=== PATIENT | female | born 1945 | race Caucasian/White ===

== ENCOUNTER 2017-06-16 06:55 | Inpatient (IN) | payer MEDICARE, OTHER ==
[2017-06-16] MEDS ORDERED: Morphine INJ* 4 MG/ML 1 ML CARPUJECT IV ONE ×2 (07:19→07:43)
[2017-06-16 07:30] LABS: ABS Basophils 0 10^3/ul (0-0.2); ABS Eosinophils 0.2 10^3/ul (0-0.6); ABS Lymphocytes 2.7 10^3/ul (1.0-4.8); ABS Monocytes 0.5 10^3/ul (0-0.8); ABS Neutrophils 5.5 10^3/ul (1.5-7.7); ABS Nucleated RBC 0 10^3/ul; Eosinophil % 2.6 % (0-6); Hematocrit 39 % (35-47); Hemoglobin 13.4 g/dl (12.0-16.0); Lymphocyte % 29.9 % (25-47); Mean Corpuscular HGB Conc 35 g/dl (31-36); Mean Corpuscular Hemoglobin 32 pg (27-31); Mean Corpuscular Volume 93 fL (80-97); Mean Platelet Volume 8 um3 (7.4-10.4); Nucleated Red Blood Cells % 0; Platelet Count 178 10^3/ul (150-450); Red Blood Count 4.17 10^6/ul (4.0-5.4); Red Cell Distribution Width 15 % (10.5-15); White Blood Count 8.9 10^3/ul (3.5-10.8)
--- NOTE | 2017-06-16 07:44 | RAD ---
INDICATION: Chest pain. COMPARISON: Comparison is made with a prior chest x-ray study from April 20, 2016. TECHNIQUE: A portable view of the chest was obtained. FINDINGS: The heart is moderately enlarged and unchanged from the prior exam. The lungs are slightly hyperinflated and clear. No pleural effusion is seen. IMPRESSION: CARDIOMEGALY, UNCHANGED.
[2017-06-16 07:48] LABS: EGFR Non-African American 84.4 (>60)
[2017-06-16 08:48] LABS: Urine Appearance Clear; Urine Blood Negative (Negative); Urine Color Yellow; Urine Ketones Negative (Negative); Urine Protein 2+(100 mg/dL) (Negative); Urine Specific Gravity 1.011 (1.010-1.030); Urine Urobilinogen Negative (Negative)
[2017-06-16] MEDS ORDERED: HYDROmorphone INJ* 2 MG/ML CARPUJECT SYRINGE IV SLOW PU ONE (09:51)
--- NOTE | 2017-06-16 10:43 | ED ---
Johnathon Mustafa Natalie, scribed for Carson Tee MD on 06/16/17 at 0745 . HPI Chest Pain - HPI Summary HPI Summary: The pt is a 71 y/o F presenting to the ED c/o mid sternal CP starting at 05:00. The pt states she was sleeping and was woken up when she got one bad chest pain that went through her left arm. She says her heart was beating fast like it was coming out of her chest. The pain is described as a needle-like pain. The pain is rated 6/10. She is currently in moderate pain. Pt additionally c/o pain constant between low back and legs, SOB, and productive cough. In the past , she has had two small heart attacks and has had one similar episode of this same CP. She is paralyzed from the waist down and gets around by crawling on the ground. The pt has hx of diabetes, COPD, HTN, and high cholesterol. - History of Current Complaint Time Seen by Provider: 06/16/17 07:14 Hx Obtained From: Patient Onset/Duration: Started Hours Ago - at 05:00 this morning, Still Present Timing: Lasting Hours Initial Severity: Moderate Current Severity: Moderate Pain Intensity: 6 Pain Scale Used: 0-10 Numeric Chest Pain Location: Mid Sternal Chest Pain Radiates: Yes Chest Pain Radiates To:: Arm - left Character: Cough, Productive, Sharp/Stabbing - "needle-like" Aggravating Factor(s): Nothing Alleviating Factor(s): Nothing Associated Signs and Symptoms: Positive: Chest Pain, Shortness of Breath, Productive Cough, Back Pain - low back - Allergy/Home Medications Allergies/Adverse Reactions: Allergies Allergy/AdvReac Type Severity Reaction Status Date / Time Aspirin Allergy Unknown Verified 06/16/17 06:59 Reaction Details Carbapenems Allergy Unknown Verified 06/16/17 06:59 Reaction Details Cephalosporins Allergy Unknown Verified 06/16/17 06:59 Reaction Details Ketorolac Tromethamine Allergy Unknown Verified 06/16/17 06:59 [From Toradol] Reaction Details Penicillins [PCN] Allergy Unknown Verified 06/16/17 06:59 Reaction Details PMH/Surg Hx/FS Hx/Imm Hx Previously Healthy: No Endocrine/Hematology History: Reports: Hx Anticoagulant Therapy, Hx Diabetes, Hx Thyroid Disease Denies: Hx Blood Transfusions Cardiovascular History: Reports: Hx Angina, Hx Congestive Heart Failure, Hx Hypercholesterolemia, Hx Hypertension, Hx Peripheral Vascular Disease, Other Cardiovascular Problems/Disorders - CHF Respiratory History: Reports: Hx Asthma, Hx Chronic Bronchitis, Hx Chronic Obstructive Pulmonary Disease (COPD) - PT ON HOME O2 4 L/MIN, Hx Pneumonia, Hx Pulmonary Edema, Hx Seasonal Allergies, Hx Sleep Apnea Denies: Hx Lung Cancer Musculoskeletal History: Reports: Hx Arthritis, Hx Back Problems, Hx Bursitis, Hx Orthopedic Injury, Hx Osteoporosis Denies: Hx Fibromyalgia Sensory History: Reports: Hx Contacts or Glasses, Hx Vision Problem Opthamlomology History: Reports: Hx Contacts or Glasses, Hx Vision Problem Neurological History: Denies: Hx Dementia, Hx Developmental Delay, Hx Headaches, Hx Migraine, Hx Seizures, Hx Spinal Cord Injury, Hx Transient Ischemic Attacks (TIA) Psychiatric History: Reports: Hx Anxiety - Cancer History Cancer Type, 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 Hx Chemotherapy: No Hx Radiation Therapy: Yes Hx Palliative Cancer Treatment: No - Surgical History Surgery Procedure, Year, and Place: cholecystectomy, carpal tunnel bilat hands, hysterectomy Hx Anesthesia Reactions: No Infectious Disease History: No Infectious Disease History: Denies: Traveled Outside the [place] in Last 30 Days - Family History Known Family History: Positive: Hypertension, Diabetes - Social History Alcohol Use: Rare Alcohol Amount: wine Hx Substance Use: No Substance Use Type: Reports: None Hx Tobacco Use: Yes Smoking Status (MU): Heavy Every Day Tobacco Smoker Type: Cigarettes Have You Smoked in the Last Year: Yes Review of Systems Constitutional: Negative Eyes: Negative ENT: Negative Positive: Chest Pain Positive: Shortness Of Breath, Cough Gastrointestinal: Negative Musculoskeletal: Negative Positive: Other - low back pain Neurological: Negative All Other Systems Reviewed And Are Negative: Yes Physical Exam - Summary Physical Exam Summary: Appearance: Well appearing, Well-nourished Skin: Warm, dry Eyes: Normal ENT: Slightly dry mucous membranes Neck: Supple, nontender Respiratory: Lungs clear to auscultation Cardiovascular: 2/6 systolic murmur throughout chest, Equal pulses in both left and right upper extremities Abdomen: Soft, nontender, nondistended, no masses present Bowel: Present Musculoskeletal: Moderate tenderness in back along midline from mid to low thoracic Neurological: A&Ox3, weakness in BLE consistent with baseline Psychiatric: Normal Triage Information Reviewed: Yes Vital Signs On Initial Exam: Initial Vitals Temp Pulse Resp BP Pulse Ox 97.4 F 89 17 123/86 92 01/06/18 06:58 06/16/17 06:58 06/16/17 06:58 06/16/17 06:58 06/16/17 06:58 Vital Signs Reviewed: Yes - Reyna Coma Scale Coma Scale Total: 15 Diagnostics - Vital Signs Vital Signs Temp Pulse Resp BP Pulse Ox 06/16/17 07:29 24 06/16/17 07:26 94 06/16/17 06:58 97.4 F 89 17 123/86 92 - Laboratory Lab Results: Lab Results 06/16/17 Range/Units 07:21 WBC 8.9 (3.5-10.8) 10^3/ul RBC 4.17 (4.0-5.4) 10^6/ul Hgb 13.4 (12.0-16.0) g/dl Hct 39 (35-47) % MCV 93 (80-97) fL MCH 32 H (27-31) pg MCHC 35 (31-36) g/dl RDW 15 (10.5-15) % Plt Count 178 (150-450) 10^3/ul MPV 8 (7.4-10.4) um3 Neut % (Auto) 61.7 (38-83) % Lymph % (Auto) 29.9 (25-47) % Trego % (Auto) 5.3 (1-9) % Eos % (Auto) 2.6 (0-6) % Baso % (Auto) 0.5 (0-2) % Absolute Neuts (auto) 5.5 (1.5-7.7) 10^3/ul Absolute Lymphs (auto) 2.7 (1.0-4.8) 10^3/ul Absolute Monos (auto) 0.5 (0-0.8) 10^3/ul Absolute Eos (auto) 0.2 (0-0.6) 10^3/ul Absolute Basos (auto) 0 (0-0.2) 10^3/ul Absolute Nucleated RBC 0 10^3/ul Nucleated RBC % 0 Result Diagrams: 06/16/17 07:21 06/16/17 07:21 Lab Statement: Any lab studies that have been ordered have been reviewed, and results considered in the medical decision making process. - Radiology CXR Xray Interpretation: No Acute Changes - Cardiomegaly, unchanged. ED physician has reviewed this report. Radiology Interpretation Completed By: Radiologist - EKG 08:04 Cardiac Rate: NL EKG Rhythm: Sinus Rhythm - 84 BPM EKG Interpretation: LAFB. Seen on prior EKG from 04/20/16. Chest Pain Course/Dx - Course Assessment/Plan: no current chest pain, complains of acute on chronic lower back pain, admitted for r/o acs and social work consultation, as patient's home has now been deemed uninhabitable - Diagnoses Provider Diagnoses: Chest pain - Provider Notifications Discussed Care Of Patient With: Naun Jaime Discharge - Discharge Plan Condition: Stable Disposition: ADMITTED TO [facility] Referrals: Janes GAMING,Lidia Abraham [Primary Care Provider] - The documentation as recorded by the Johnathon jolley Natalie accurately reflects the service I personally performed and the decisions made by , Carson Tee MD.
[2017-06-16] MEDS ORDERED: Ondansetron INJ* 2 MG/ML VIAL IV PRN (11:38)
[2017-06-16] MEDS ORDERED: Albuterol 2.5 MG/3 ML NEB.SOL* (0.083%) INH PRN (11:38)
[2017-06-16] MEDS ORDERED: Dextrose 50% Syringe 50 ML* 25 GM/50 ML SYRINGE IV PUSH PRN (11:38)
[2017-06-16] MEDS ORDERED: Acetaminophen TAB* 325 MG PO PRN (11:38)
[2017-06-16] MEDS ORDERED: Albuterol HFA INHALER* 8 gm MDI INH PRN (11:48)
[2017-06-16] MEDS: oxyCODONE/Acetamin 5/325 MG* TAB PO PRN ×2 (13:45→20:30)
[2017-06-16] MEDS: Baclofen TAB* 10 MG PO SCH ×2 (13:45→20:31)
[2017-06-16] MEDS: Pramipexole TAB* 0.5 MG PO PRN (13:45)
[2017-06-16] MEDS: Gabapentin CAP(*) 400 MG PO SCH ×2 (13:46→20:31)
--- NOTE | 2017-06-16 14:00 | HP ---
CC: Dr. Marrero; Dr. Hahn * HISTORY AND PHYSICAL: DATE OF ADMISSION: 06/16/17 PRIMARY CARE PROVIDER: Dr. Marrero. ATTENDING PHYSICIAN WHILE IN THE HOSPITAL: Dr. Annelise Mack * (report dictated by Rex Graf NP). CHIEF COMPLAINT: Chest pain. HISTORY OF PRESENT ILLNESS: Ms. Regalado is 71-year-old female patient. She has a history of arthritis. She has a history of severe . She follows closely with Dr. Hahn. She states she has had 2 mild heart attacks in the past. She is diabetic, hypothyroidism, history of CHF, CVA, AFib, COPD, and has a history of uterine cancer, hypertension, hyperlipidemia. She comes into the ED today, saying around 5 in the morning, she woke up, she started having intermittent chest discomfort. She states that the pain has been coming and going over the last several hours and it was severe enough to the point where she felt that she wanted to come in. She said the pain did go down her left arm. She described this as a squeezing-type pressure. She does admit also she has been feeling under the weather over the last few days as well as she had a cough productive of a thick, white sputum. She has not been feeling short of breath. No fevers or chills, but she was concerned with the new onset today of chest pain. She came into the ED, was evaluated. She had no associated nausea. She did get diaphoretic with it. She has significant risk factors for acute coronary syndrome and we were asked to evaluate for admission. She denied having any calf pain, leg pain, or leg swelling, and again says the symptoms are gone now and she is not having any shortness of breath whatsoever. PAST MEDICAL HISTORY: Significant for: 1. Osteoarthritis. 2. History of CHF. 3. History of CA x2. 4. Diabetes. 5. Hypothyroidism. 6. CVA. 7. AFib. 8. COPD. 9. Uterine cancer. 10. Hypertension. 11. Hyperlipidemia. PAST SURGICAL HISTORY: She has had: 1. Hysterectomy. 2. Cholecystectomy. 3. Carpal tunnel repair. MEDICATIONS: Home medications according to the list that we were able to obtain include: 1. Januvia 100 mg daily. 2. Mirapex 0.5 mg t.i.d. as needed. 3. Gabapentin 400 mg p.o. t.i.d. 4. Metformin 500 mg p.o. b.i.d. 5. Synthroid 125 mcg daily. 6. Apixaban 5 mg p.o. b.i.d. 7. Percocet 1 tablet daily as needed. 8. Tylenol 500 mg p.o. b.i.d. as needed. 9. Toprol-XL 25 mg p.o. daily. 10. Nitro 0.4 mg sublingual q.5 minutes x3 chest pain. 11. Symbicort 2 puffs inhaled b.i.d. 12. Requip 1 mg p.o. t.i.d. as needed. 13. Ventolin 2 puffs inhaled every 4 hours as needed. 14. Celebrex 200 mg p.o. daily. 15. Multivitamin 1 tablet daily. 16. Baclofen 10 mg p.o. t.i.d. ALLERGIES TO MEDICATIONS: Include ASPIRIN, CARBAPENEM, CEPHALOSPORIN, and TORADOL. FAMILY HISTORY: Both the parents had CHF. Mother did have a history of CA at age before 50. SOCIAL HISTORY: She is a pack-a-day smoker. Rarely drinks alcohol. Lives alone. Surrogate decision maker is the director of social work, Mary. REVIEW OF SYSTEMS: There is no documented fever. Denied having any significant weight change. There was no double vision. Denies having any ear discharge. There was no rhinorrhea. There is no sore throat. She does feel congested. She does admit to having a cough productive of a white, thick sputum. She denies having any abdominal pain. There has been no nausea, no vomiting. No dysuria, no frequency. There has been no seizure, no loss of consciousness. No pruritus and no skin ulcerations. Review of 14 systems completed, all others negative. PHYSICAL EXAMINATION GENERAL: At this time, Ms. Regalado is a 71-year-old female patient. She is sitting in the ED stretcher. She does not appear to be in any acute distress. She is awake and she is alert. VITAL SIGNS: Blood pressure 131/45, pulse 80, respirations were 18, O2 sat 95% , temperature 97.4. HEENT: Head: Atraumatic, normocephalic. Eyes: EOMs are intact. Sclerae anicteric, not pale. Throat: Oral mucosa appears to be moist. No oropharyngeal erythema. NECK: Supple. LUNGS: She did have wheezing in the upper lobe. She has equal diaphragmatic expansion. HEART: Sounds S1, S2. Regular rate and rhythm. She has a grade 3/6 murmur in the aortic listening area, systolic. ABDOMEN: Soft, flat, nontender. Bowel sounds present. EXTREMITIES: Pulses were 2+ throughout. She had no peripheral edema. She is moving all 4 extremities with 5/5 strength. NEUROLOGIC: The patient is awake, alert. She is oriented x3. Health And Safety Specialist are equal. No gross focal deficits. SKIN: Intact. DIAGNOSTIC STUDIES/LAB DATA: WBC of 8.9, RBC of 4.17, hemoglobin of 13.4, hematocrit of 39, platelet count 178. ESR was 11. Sodium was 139, potassium 4.3, chloride 110, bicarb 23, BUN 17, creatinine 0.69, glucose 97, calcium 9.2, mag 1.9. Total bili is 0.4, AST 18, ALT 9, alk phos 60. Troponin 0.03, repeat was 0.03. CRP less than 1. Albumin of 4.2. Urine was obtained, it was negative. She had a chest x-ray obtained today, impression: Cardiomegaly unchanged. She had an EKG obtained today, shows a normal sinus rhythm with left anterior fascicular block. No ST elevations were noted or T-wave inversions, rate of 84. It was reviewed to her previous EKGs. Previous EKGs from 2 years ago shows sinus bradycardia, left fascicular block was there as well. Old medical records reviewed. ASSESSMENT AND PLAN: Ms. Regalado is 71-year-old female patient coming into the ED today with complaints of chest discomfort. We are asked to evaluate for admission. She will be admitted under observation status for: 1. Chest pain. The etiology is concerning here. She could have acute coronary syndrome. She certainly has significant risk factors, the patient is a smoker, she has a history of possible myocardial infarction in the past, diabetes, hypertension, hyperlipidemia, and history of atrial fibrillation. At this point, I think it is prudent to go ahead and pursue stress testing, serial troponins, place her on telemetry. At this point, she is chest pain free. She is allergic to ASPIRIN. So, I am just going to continue the beta juanito. If she starts having chest discomfort , I will put her on Plavix. I am leery of doing that right away because she is already on apixaban. So, we will continue to follow her. 2. Osteoarthritis. Continue p.r.n. meds as prescribed. 3. Neuropathy. Continue meds as prescribed. 4. Congestive heart failure. She does not appear to be in any acute failure at this point. 5. History of diabetes. She is going to be on lispro sliding scale. 6. Hypothyroidism. Continue Synthroid. 7. History of cerebrovascular accident. Again, secondary prevention. 8. Atrial fibrillation. Continue the Eliquis. 9. Chronic obstructive pulmonary disease. She is wheezing on exam, so I am going to put her on standing nebs. Continue Dulera and we will check for flu swab as well and we will continue to follow. Get a sputum culture. 10. History of hypertension. Continue her meds as prescribed. 11. Hyperlipidemia. We will check lipids in the morning. If needed, we will start statin. 12. DVT prophylaxis. She is on apixaban. 13. Code status. Full code. 14. Fluids, electrolytes, and nutrition. She can have a consistent carb diet. TIME SPENT: On the admission was 60 minutes; greater than half the time was spent [id number] with the patient obtaining my history and physical, other half the time was spent going over the plan of care with the patient and implementing the plan of care. I did discuss the plan of care with my attending , Dr. Mack; she is in agreement. REX GRAF NP [id number]/CPS #: [id number] MEMO
[2017-06-16] MEDS: Albuterol/Ipratropium NEB.SOL* Albuterol 2.5 MG/Ipratropium 0.5 MG 3 ML INH SCH ×3 (15:35→23:18)
[2017-06-16] MEDS: Insulin LISPRO* 1 UNITS UNIT SUBCUT SCH (17:24)
[2017-06-16] MEDS: Mometasone/Formoter 200/5 MDI INH SCH (19:28)
[2017-06-16] MEDS: Apixaban* 5 MG TAB PO SCH (20:30)
[2017-06-16] MEDS: rOPINIRole TAB* 1 MG PO PRN (20:31)
[2017-06-17] MEDS: oxyCODONE/Acetamin 5/325 MG* TAB PO PRN ×3 (02:42→20:42)
[2017-06-17] MEDS: Pramipexole TAB* 0.5 MG PO PRN ×2 (02:43→12:59)
[2017-06-17] MEDS: Albuterol/Ipratropium NEB.SOL* Albuterol 2.5 MG/Ipratropium 0.5 MG 3 ML INH SCH ×6 (03:24→23:35)
[2017-06-17 05:05] LABS: ABS Basophils 0 10^3/ul (0-0.2); ABS Eosinophils 0.2 10^3/ul (0-0.6); ABS Lymphocytes 2.7 10^3/ul (1.0-4.8); ABS Monocytes 0.4 10^3/ul (0-0.8); ABS Nucleated RBC 0 10^3/ul; Eosinophil % 2.6 % (0-6); Hematocrit 37 % (35-47); Hemoglobin 12.4 g/dl (12.0-16.0); Lymphocyte % 42.6 % (25-47); Mean Corpuscular HGB Conc 34 g/dl (31-36); Mean Corpuscular Hemoglobin 32 pg (27-31); Mean Corpuscular Volume 93 fL (80-97); Mean Platelet Volume 8 um3 (7.4-10.4); Nucleated Red Blood Cells % 0.1; Platelet Count 153 10^3/ul (150-450); Red Blood Count 3.92 10^6/ul (4.0-5.4); Red Cell Distribution Width 14 % (10.5-15); White Blood Count 6.4 10^3/ul (3.5-10.8)
[2017-06-17 05:20] LABS: EGFR Non-African American 61.3 (>60)
[2017-06-17] MEDS: Levothyroxine TAB* 125 MCG TAB PO SCH (06:06)
[2017-06-17] MEDS: Mometasone/Formoter 200/5 MDI INH SCH ×2 (07:55→19:27)
[2017-06-17] MEDS: Apixaban* 5 MG TAB PO SCH ×2 (09:35→20:43)
[2017-06-17] MEDS: Gabapentin CAP(*) 400 MG PO SCH ×3 (09:35→20:42)
[2017-06-17] MEDS: Baclofen TAB* 10 MG PO SCH ×3 (09:35→20:42)
[2017-06-17] MEDS: Metoprolol Succinate XL TAB* 25 MG PO SCH (09:35)
[2017-06-17] MEDS: rOPINIRole TAB* 1 MG PO PRN ×2 (09:35→20:42)
[2017-06-17] MEDS: Insulin LISPRO* 1 UNITS UNIT SUBCUT SCH ×3 (09:36→16:58)
[2017-06-17] MEDS ORDERED: diPHENhydraMINE PO* 25 MG PO ONE (12:00)
[2017-06-17] MEDS ORDERED: Diazepam TAB(*) 5 MG PO ONE (12:00)
--- NOTE | 2017-06-17 13:33 | PN ---
Subjective Date of Service: 06/17/17 Interval History: Pt examined today at the bedside. States that she has sharp pain in chest occasionally. No pain currently. She denies abdominal pain. Denies sob and denies nausea or vomiting. ROS-denies fever, denies chills, denies sob, denies chest pain, denies nausea, denies vomiting, denies lightheadedness, denies loc, denies abdominal pain, review of 11 systems completed all others negative, Objective Active Medications: Acetaminophen (Tylenol Tab*) 650 mg PO Q4H PRN PRN Reason: FEVER/PAIN Albuterol (Ventolin 2.5 Mg/3 Ml Neb.Marjorie*) 2.5 mg INH Q2H PRN PRN Reason: SOB/WHEEZING Albuterol (Ventolin Hfa Inhaler*) 2 puff INH Q4H PRN PRN Reason: SOB/WHEEZING Apixaban (Eliquis*) 5 mg PO BID [facility] Last Admin: 06/17/17 09:35 Dose: 5 mg Baclofen (Lioresal Tab*) 10 mg PO TID [facility] Last Admin: 06/17/17 13:00 Dose: 10 mg Dextrose (D50w Syringe 50 Ml*) 12.5 gm IV PUSH .FOR FS < 60 - SS PRN PRN Reason: FS < 60 Gabapentin (Neurontin Cap(*)) 400 mg PO TID [facility] Last Admin: 06/17/17 13:00 Dose: 400 mg Sodium Chloride (Ns 0.9% 1000 Ml*) 1,000 mls @ 75 mls/hr IV .per rate [facility] Insulin Human Lispro (Humalog*) 0 units SUBCUT AC [facility] PRN Reason: Protocol Last Admin: 06/17/17 12:23 Dose: Not Given Levothyroxine Sodium (Synthroid Tab*) 125 mcg PO 0600 [facility] Last Admin: 06/17/17 06:06 Dose: 125 mcg Metoprolol Succinate (Toprol Xl Tab*) 25 mg PO DAILY [facility] Last Admin: 06/17/17 09:35 Dose: 25 mg Mometasone Furoate/Formoterol Fumar (Dulera 200/5 Mdi*) 2 puff INH BID [facility] Last Admin: 06/17/17 07:55 Dose: 2 puff Ondansetron HCl (Zofran Inj*) 4 mg IV Q6H PRN PRN Reason: NAUSEA Oxycodone/Acetaminophen (Percocet 5/325 Tab*) 2 tab PO Q4H PRN PRN Reason: PAIN Last Admin: 06/17/17 12:59 Dose: 2 tab Pramipexole Dihydrochloride (Mirapex Tab*) 0.5 mg PO TID PRN PRN Reason: LEG CRAMPS Last Admin: 06/17/17 12:59 Dose: 0.5 mg Ropinirole HCl (Requip Tab*) 1 mg PO TID PRN PRN Reason: for restless leg syndrome Last Admin: 06/17/17 09:35 Dose: 1 mg Vital Signs - 8 hr 06/17/17 06/17/17 06/17/17 07:50 07:55 08:00 Temperature 98.9 F Pulse Rate 64 76 Respiratory 20 18 18 Rate Blood Pressure 138/55 (mmHg) O2 Sat by Pulse 91 93 Oximetry 06/17/17 06/17/17 06/17/17 09:35 12:59 13:00 Temperature Pulse Rate Respiratory 20 20 18 Rate Blood Pressure (mmHg) O2 Sat by Pulse Oximetry Oxygen Devices in Use Now: Nasal Cannula Appearance: 71 y/o female patient sitting in bed NAD, Eyes: No Scleral Icterus, PERRLA Ears/Nose/Mouth/Throat: NL Teeth, Lips, Gums Neck: NL Appearance and Movements; NL JVP Respiratory: Symmetrical Chest Expansion and Respiratory Effort, - - exp wheeze heard in upper lobes, Cardiovascular: NL Sounds; No Murmurs; No JVD Abdominal: NL Sounds; No Tenderness; No Distention Extremities: No Edema Skin: No Rash or Ulcers Neurological: Alert and Oriented x 3 Lines/Tubes/Other Access: Clean, Dry and Intact Peripheral IV Result Diagrams: 06/17/17 04:47 06/17/17 04:47 Additional Lab and Data: Lab Results 06/16/17 Range/Units 07:21 WBC 8.9 (3.5-10.8) 10^3/ul RBC 4.17 (4.0-5.4) 10^6/ul Hgb 13.4 (12.0-16.0) g/dl Hct 39 (35-47) % MCV 93 (80-97) fL MCH 32 H (27-31) pg MCHC 35 (31-36) g/dl RDW 15 (10.5-15) % Plt Count 178 (150-450) 10^3/ul MPV 8 (7.4-10.4) um3 Neut % (Auto) 61.7 (38-83) % Lymph % (Auto) 29.9 (25-47) % Gordon % (Auto) 5.3 (1-9) % Eos % (Auto) 2.6 (0-6) % Baso % (Auto) 0.5 (0-2) % Absolute Neuts (auto) 5.5 (1.5-7.7) 10^3/ul Absolute Lymphs (auto) 2.7 (1.0-4.8) 10^3/ul Absolute Monos (auto) 0.5 (0-0.8) 10^3/ul Absolute Eos (auto) 0.2 (0-0.6) 10^3/ul Absolute Basos (auto) 0 (0-0.2) 10^3/ul Absolute Nucleated RBC 0 10^3/ul Nucleated RBC % 0 Assess/Plan/Problems-Billing Assessment: 71 y/o female patient presenting to [facility] with complaints of chest pain - Patient Problems (1) HTN (hypertension) Current Visit: Yes Status: Acute Priority: High Comment: Continue home medications, (2) HLD (hyperlipidemia) Current Visit: Yes Status: Acute Priority: High Comment: LDL 123 will start statin (3) Aortic stenosis Current Visit: Yes Status: Acute Priority: High Comment: Dr hahn following suspect chest r/t cardiac cath in am, (4) History of CVA (cerebrovascular accident) Current Visit: Yes Status: Acute Priority: High Comment: continue with secondary prevention (5) CHF (congestive heart failure) Current Visit: Yes Status: Acute Priority: High Comment: not in failure at this point, lungs with wheeze, suspect r/t copd, will follow diuresis prn (6) FEN Current Visit: Yes Status: Acute Priority: High Comment: Consistent carb diet (7) Afib Current Visit: Yes Status: Acute Priority: High Comment: Continue Elquis, (8) COPD (chronic obstructive pulmonary disease) Current Visit: Yes Status: Acute Priority: High Comment: Wheezing on exam continue standing nebs, (9) Chest pain Current Visit: Yes Status: Acute Priority: High Comment: Trops negative, Dr Hahn following, pain for cath, trops, negative, (10) DVT prophylaxis Current Visit: Yes Status: Acute Priority: High Comment: elquis (11) Depression Current Visit: Yes Status: Acute Priority: High Comment: continue home medications (12) Diabetes Current Visit: Yes Status: Acute Priority: High Code(s): E11.9 - TYPE 2 DIABETES MELLITUS WITHOUT COMPLICATIONS Comment: Blood sugars well controlled continue sliding scale, (13) Full code status Current Visit: Yes Status: Acute Priority: High (14) Acquired hypothyroidism Current Visit: Yes Status: Acute Priority: High Comment: continue home medications Status and Disposition: Change to inpatient, plan for cath in the AM,
[2017-06-17] MEDS ORDERED: Albuterol/Ipratropium NEB.SOL* Albuterol 2.5 MG/Ipratropium 0.5 MG 3 ML INH SCH (15:00)
[2017-06-17] MEDS: Atorvastatin* 20 MG TAB PO SCH (17:11)
[2017-06-17] MEDS ORDERED: NS 0.9% 1000 ML* 1,000 ML IV SCH (23:55)
[2017-06-18] MEDS: Pramipexole TAB* 0.5 MG PO PRN ×3 (00:16→21:04)
[2017-06-18] MEDS: Albuterol/Ipratropium NEB.SOL* Albuterol 2.5 MG/Ipratropium 0.5 MG 3 ML INH SCH ×3 (03:45→11:37)
--- NOTE | 2017-06-18 05:32 | CONS ---
CC: Dr. Lidia Marrero; STEVE Sheldon * CARDIOLOGY CONSULTATION: DATE OF CONSULT: 06/17/17 REASON FOR CONSULTATION: Chest pain, aortic stenosis. HISTORY OF PRESENT ILLNESS: The patient is a 71-year-old female with a history of hypertension, hyperlipidemia, paroxysmal atrial fibrillation, congestive heart failure, obesity and anxiety who also has severe aortic stenosis. I had seen the patient in followup in my clinic 5 days ago, at that time, she was not having any clear cardiac symptoms from her severe aortic stenosis. She had had a carotid ultrasound, which showed no critical stenosis of her carotid arteries. The day prior to admission to the hospital, the patient was at home and she started having a sudden onset of chest pain. She described it as a heaviness in her chest. She said it felt like her heart was thumping and she felt quite anxious. At that time, she called her director of social services who decided to call the ambulance. The patient was taken to the [facility] and then transferred to [facility] because of her chest pain. The patient ruled out for a myocardial infarction. Her troponin levels were unremarkable. In speaking with the patient, she says that occasionally she will get chest pain at home but this is usually fleeting, it is usually a sharp pain on the left side of her chest and lasts just a few seconds. This episode was a much prolonged chest pain. She had shortness of breath associated with it. The patient has not experienced this type of chest pain in the past. The patient did have an echocardiogram in March of 2017, which showed normal LV size and systolic function. She had severe aortic stenosis with a mean gradient of 40 mmHg, peak velocity of 4.2 m/sec, she had mild mitral regurgitation and mild tricuspid regurgitation. The patient did have a chemical nuclear stress test in April of 2016, which showed a small area of ischemia to her inferior wall, she had normal LV function. PAST MEDICAL HISTORY: Significant for diabetes, severe aortic stenosis, CVA, paroxysmal atrial fibrillation, hypertension. She has also had a history of uterine cancer. She has had a history of hysterectomy, cholecystectomy and carpal tunnel. OUTPATIENT MEDICATIONS: 1. Januvia 100 mg a day. 2. Gabapentin 400 mg 3 times a day. 3. Metformin 500 mg b.i.d. 4. Synthroid 125 mcg a day. 5. Eliquis 5 mg b.i.d. 6. Toprol-XL 25 mg a day. 7. Requip 1 mg 3 times a day. 8. Ventolin inhaler. 9. Celebrex 200 mg a day. 10. Multivitamin a day. ALLERGIES: To ASPIRIN, CEPHALOSPORIN and TORADOL. FAMILY HISTORY: Both her parents had a history of congestive heart failure. Her mother of myocardial infarction at 50 years old. SOCIAL HISTORY: The patient continues to smoke a pack a day. Rare alcohol intake. She lives alone. She has a director of social services that is involved in her care. PHYSICAL EXAM: Height is 5 feet 4 inches, weight is 187 pounds, heart rate is 78, blood pressure 129/58, respiratory rate is 18, temperature of 98.2. Sclerae are anicteric. Oropharynx is pink without erythema. Carotids are 2+ with bilateral bruits. JV is normal. Thyroid is normal. Cardiac Exam: S1, S2 with a 3/6 systolic ejection murmur. No diastolic murmur. PMI is normal. Lungs have decreased breath sounds. There are no rhonchi or wheezes. There are rales on exam. Abdomen is obese, soft, nontender and nondistended with normoactive bowel sounds. There is no hepatosplenomegaly. Extremities show 1+ edema. She has 2+ pulses throughout. The patient is awake, alert and oriented. She moves all 4 extremities equally. DIAGNOSTIC STUDIES/LAB DATA: CBC within normal limits. Chemistries within normal limits. BUN 25, creatinine 0.91. Again, troponins are negative x3. Total cholesterol 214, LDL of 123. Her EKG demonstrates normal sinus rhythm with nonspecific ST-T wave abnormalities. IMPRESSION: This is a 61-year-old female who was admitted to the hospital with chest pain. The patient has a known history of severe aortic stenosis. The patient is ruled out for a myocardial infarction. She has no EKG changes. For now, my recommendation is the patient be evaluated for aortic valve replacement. Because of her severe aortic stenosis and chest pain, I think it is time to consider aortic valve replacement. The patient will be considered for a cardiac catheterization in the near future. Her medications should remain the same. Further recommendations pending the results of her cardiac catheterization. [id number]/[facility] #: [id number] [facility]
[2017-06-18 05:57] LABS: ABS Basophils 0 10^3/ul (0-0.2); ABS Eosinophils 0.1 10^3/ul (0-0.6); ABS Lymphocytes 2.4 10^3/ul (1.0-4.8); ABS Monocytes 0.5 10^3/ul (0-0.8); ABS Neutrophils 3.4 10^3/ul (1.5-7.7); ABS Nucleated RBC 0 10^3/ul; Eosinophil % 1.9 % (0-6); Hematocrit 36 % (35-47); Hemoglobin 12.1 g/dl (12.0-16.0); Mean Corpuscular HGB Conc 34 g/dl (31-36); Mean Corpuscular Hemoglobin 32 pg (27-31); Mean Corpuscular Volume 94 fL (80-97); Mean Platelet Volume 8 um3 (7.4-10.4); Nucleated Red Blood Cells % 0; Platelet Count 152 10^3/ul (150-450); Red Blood Count 3.85 10^6/ul (4.0-5.4); Red Cell Distribution Width 14 % (10.5-15); White Blood Count 6.4 10^3/ul (3.5-10.8)
[2017-06-18] MEDS ORDERED: Diazepam TAB(*) 5 MG PO ONE (06:00)
[2017-06-18] MEDS ORDERED: diPHENhydraMINE PO* 25 MG PO ONE (06:00)
[2017-06-18 06:13] LABS: EGFR Non-African American 67.2 (>60)
[2017-06-18] MEDS: Levothyroxine TAB* 125 MCG TAB PO SCH (06:35)
[2017-06-18] MEDS: Mometasone/Formoter 200/5 MDI INH SCH ×2 (07:35→20:06)
[2017-06-18] MEDS: Insulin LISPRO* 1 UNITS UNIT SUBCUT SCH ×3 (08:26→16:46)
--- NOTE | 2017-06-18 10:33 | ECHO ---
Patient: AIDEN GALINDO [facility] Rec#: [id number] : 1945 Date: 06/18/2017 Age: 71y Height: 162.56 cm / 64.0 in Weight: 84.82 kg / 186.9 lbs Sex: F BSA: 1.9 Room#: 434 Admit Date#: 06/16/2017 Type: Inpatient Referring: Rex Graf NP Reading: Jose Alfredo Hahn MD Deputy [employer] Marshal: Kaitlin Mosqueda RDCS CC: Lidia Marrero MD Transthoracic Echocardiogram Indication: Aortic stenosis, chest pain BP: 113/59 HR: 60 Rhythm: NSR with PACs Findings History: Osteoarthritis, CHF, NH x2, DM, hypothyroid, CVA, a-fib, COPD, HTN, HLD, uterine cancer, smoker, murmur. Technical Comments: The study quality is fair. The study is technically limited due to the patient's history of COPD. Completed at 0910. Left Ventricle: The left ventricular chamber size is normal. Moderate concentric left ventricular hypertrophy is observed. There is a prominent septal knuckle. Global left ventricular wall motion and contractility are within normal limits. There is normal left ventricular systolic function. The estimated ejection fraction is 60-65%. There is no consistent Doppler evidence of clinically significant diastolic dysfunction. Left Atrium: The left atrium is moderately dilated. Right Ventricle: Moderator Band present. The right ventricle is moderately dilated. The right ventricular global systolic function is low normal. Right Atrium: The right atrium is moderate to severely dilated. Aortic Valve: The aortic valve structure is not well visualized. Moderate aortic leaflet calcification is visualized. Systolic excursion of the aortic valve cusps is reduced. There is mild aortic regurgitation. There is severe aortic stenosis. The mean gradient of the aortic valve is 27.93 mmHg. The aortic valve area, by peak velocities, is calculated at 1.2 cm2. The measured aortic regurgitation pressure half-time is 516 msec. Mitral Valve: There is mitral annular calcification. The mitral valve leaflets are moderately thickened. Mitral valve leaflet mobility is mildly restricted. There is mild mitral regurgitation. There is borderline mitral stenosis. Tricuspid Valve: The tricuspid valve leaflets are mildly thickened. There is mild tricuspid regurgitation. The right ventricular systolic pressure is estimated at 37 mmHg. There is evidence of mild pulmonary hypertension. There is no tricuspid stenosis. Pulmonic Valve: There is no evidence of pulmonic valve thickening. There is trace to mild pulmonic regurgitation. There is no pulmonic stenosis. Pericardium: There is no significant pericardial effusion. A pericardial fat pad is visualized. Aorta: There is moderate dilatation of the ascending aorta. The aortic arch is not well visualized. There is mild dilatation of the aortic root. Pulmonary Artery: The main pulmonary artery appears normal. Venous: The inferior vena cava appears normal in size. There is an approximate 50% respiratory change in the inferior vena cava dimension. Summary: There are no significant changes when compared to the previous study done on 03/27/17 Conclusions Moderate concentric left ventricular hypertrophy is observed. Global left ventricular wall motion and contractility are within normal limits. There is normal left ventricular systolic function. The estimated ejection fraction is 60-65%. The right ventricular global systolic function is low normal. Moderate aortic leaflet calcification is visualized. There is mild aortic regurgitation. There is severe aortic stenosis. The mean gradient of the aortic valve is 27.93 mmHg. Mitral valve leaflet mobility is mildly restricted. There is mild mitral regurgitation. There is mild tricuspid regurgitation. There is evidence of mild pulmonary hypertension. There is no significant pericardial effusion. There are no significant changes when compared to the previous study done on 03/27/17 Measurements Name Value Normal Range RVIDd (AP) 2D 3.9 cm (0.9 - 2.6) RVDdMajor (2D) 5.3 cm (2.2 - 4.4) RAd ISD 4CH 6 cm (3.4 - 4.9) RA (A4C)W 6.2 cm (2.9 - 4.6) IVSd (2D) 1.4 cm (0.6 - 1) LVPWd (2D) 1.4 cm (0.6 - 1) LVIDd (2D) 4.1 cm (3.6 - 5.4) LVIDs (2D) 3.2 cm - LV FS (2D) 22 % (25 - 45) Aortic Annulus 1.7 cm (1.4 - 2.6) Ao root diameter (2D) 3.7 cm (2.1 - 3.5) Ascending Ao 4.1 cm (2.1 - 3.4) LA dimension (AP) 2D 4.9 cm (2.3 - 3.8) LAd ISD 4CH 5.7 cm (2.9 - 5.3) LA ISD 4CH W 4.7 cm (2.5 - 4.5) Name Value Normal Range LA ESV SP 4CH (A/L) 78 ml - LA ESV SP 2CH (A/L) 90 ml - LA ESV BP (A/L) 86 ml - LA ESV BP (A/L) index 45.5 ml/m2 - LA ESV SP 4CH (MOD) 72 ml - LA ESV SP 2CH (MOD) 83 ml - Name Value Normal Range MV E-wave Vmax 1.19 m/sec - MV deceleration time 190 msec - MV A-wave Vmax 0.56 m/sec - MV E:A ratio 2.08 ratio - LV septal e' Vmax 0.04 m/sec - LV lateral e' Vmax 0.07 m/sec - LV E:e' septal ratio 29.75 ratio - LV E:e' lateral ratio 17 ratio - Name Value Normal Range AV Vmax 4 m/sec - AV VTI 89.95 cm - AV peak gradient 62.58 mmHg - AV mean gradient 27.93 mmHg - LVOT diameter 2 cm - LVOT Vmax 1.58 m/sec - LVOT VTI 35.96 cm - LVOT peak gradient 10.08 mmHg - LVOT mean gradient 5.48 mmHg - DOI (VTI) 0.4 ratio - RUBIA (continuity Vmax) 1.2 cm2 - RUBIA (continuity VTI) 1.3 cm2 - AR PHT 516 msec - Name Value Normal Range MV Vmax 1.6 m/sec - MV VTI 45.29 cm - MV peak gradient 10.33 mmHg - MV mean gradient 3.77 mmHg - MV PHT 80 msec - MVA (PHT) 2.7 cm2 - MVA (continuity VTI) 2.4 cm2 - Name Value Normal Range TR Vmax 2.7 m/sec - TR peak gradient 29 mmHg - RAP 8 mmHg - RVSP 37 mmHg - IVC diameter 2.1 cm - Name Value Normal Range PV Vmax 1.22 m/sec - PV peak gradient 6.02 mmHg - KS end-diastolic Vmax 1.41 m/sec -
[2017-06-18] MEDS: Apixaban* 5 MG TAB PO SCH ×2 (13:52→21:03)
[2017-06-18] MEDS: Baclofen TAB* 10 MG PO SCH ×3 (13:53→21:03)
[2017-06-18] MEDS: Metoprolol Succinate XL TAB* 25 MG PO SCH (13:53)
[2017-06-18] MEDS: Gabapentin CAP(*) 400 MG PO SCH ×3 (13:53→21:04)
[2017-06-18] MEDS ORDERED: fentaNYL* 50 MCG/ML 2 ML VIAL (100 MCG VIAL) ONE (14:44)
[2017-06-18] MEDS ORDERED: Midazolam* 1 MG/ML 10 ML VIAL (10 MG) ONE (14:45)
[2017-06-18] MEDS ORDERED: Heparin 2 UNITS/ML IVPREMIX* 3,000 ML IV ONE (14:45)
[2017-06-18] MEDS ORDERED: Lidocaine 1% INJ* 10 MG/ML 30 ML SDV ONE (14:45)
[2017-06-18] MEDS ORDERED: Iohexol 350 (CONTRAST) 200 ML MDV IV ONE (14:46)
[2017-06-18] MEDS: oxyCODONE/Acetamin 5/325 MG* TAB PO PRN (14:47)
[2017-06-18] MEDS ORDERED: LORazepam INJ* 2 MG/ML 1 ML VIAL ONE (15:08)
[2017-06-18] MEDS: Atorvastatin* 20 MG TAB PO SCH (16:03)
[2017-06-18] MEDS: rOPINIRole TAB* 1 MG PO PRN ×2 (16:03→21:03)
--- NOTE | 2017-06-18 20:09 | PN ---
Subjective Date of Service: 06/18/17 Interval History: c/o of chest pain on and off no change. No chest pain at the time of exam. Denies shortness of breath. Denies N/V/D . Denies urinary symptoms. Family History: Unchanged from Admission Social History: Unchanged from Admission Past Medical History: Unchanged from Admission Objective Active Medications: Acetaminophen (Tylenol Tab*) 650 mg PO Q4H PRN PRN Reason: FEVER/PAIN Albuterol (Ventolin 2.5 Mg/3 Ml Neb.Marjorie*) 2.5 mg INH Q2H PRN PRN Reason: SOB/WHEEZING Albuterol (Ventolin Hfa Inhaler*) 2 puff INH Q4H PRN PRN Reason: SOB/WHEEZING Apixaban (Eliquis*) 5 mg PO BID [facility] Last Admin: 06/18/17 13:52 Dose: Not Given Atorvastatin Calcium (Lipitor*) 20 mg PO 1700 [facility] Last Admin: 06/18/17 16:03 Dose: 20 mg Baclofen (Lioresal Tab*) 10 mg PO TID [facility] Last Admin: 06/18/17 14:47 Dose: 10 mg Dextrose (D50w Syringe 50 Ml*) 12.5 gm IV PUSH .FOR FS < 60 - SS PRN PRN Reason: FS < 60 Gabapentin (Neurontin Cap(*)) 400 mg PO TID [facility] Last Admin: 06/18/17 14:47 Dose: 400 mg Sodium Chloride (Ns 0.9% 1000 Ml*) 1,000 mls @ 75 mls/hr IV .per rate [facility] Last Admin: 06/18/17 16:18 Dose: 75 mls/hr Insulin Human Lispro (Humalog*) 0 units SUBCUT AC [facility] PRN Reason: Protocol Last Admin: 06/18/17 16:46 Dose: Not Given Levothyroxine Sodium (Synthroid Tab*) 125 mcg PO 0600 [facility] Last Admin: 06/18/17 06:35 Dose: 125 mcg Metoprolol Succinate (Toprol Xl Tab*) 25 mg PO DAILY [facility] Last Admin: 06/18/17 13:53 Dose: Not Given Mometasone Furoate/Formoterol Fumar (Dulera 200/5 Mdi*) 2 puff INH BID [facility] Last Admin: 06/18/17 07:35 Dose: Not Given Ondansetron HCl (Zofran Inj*) 4 mg IV Q6H PRN PRN Reason: NAUSEA Oxycodone/Acetaminophen (Percocet 5/325 Tab*) 2 tab PO Q4H PRN PRN Reason: PAIN Last Admin: 06/18/17 14:47 Dose: 2 tab Pramipexole Dihydrochloride (Mirapex Tab*) 0.5 mg PO TID PRN PRN Reason: LEG CRAMPS Last Admin: 06/18/17 14:47 Dose: 0.5 mg Ropinirole HCl (Requip Tab*) 1 mg PO TID PRN PRN Reason: for restless leg syndrome Last Admin: 06/18/17 16:03 Dose: 1 mg Vital Signs - 8 hr 06/18/17 06/18/17 06/18/17 14:47 16:04 17:02 Temperature 98.1 F Pulse Rate 92 Respiratory 18 20 28 Rate Blood Pressure 131/70 (mmHg) O2 Sat by Pulse 94 Oximetry 06/18/17 06/18/17 19:42 19:53 Temperature 98.4 F Pulse Rate 70 Respiratory 16 18 Rate Blood Pressure 118/54 (mmHg) O2 Sat by Pulse 93 Oximetry Oxygen Devices in Use Now: Nasal Cannula Appearance: alert and oriented x 3, appears comfortable Eyes: No Scleral Icterus Ears/Nose/Mouth/Throat: Clear Oropharnyx, Mucous Membranes Moist Neck: NL Appearance and Movements; NL JVP, Trachea Midline Respiratory: Symmetrical Chest Expansion and Respiratory Effort, Clear to Auscultation Cardiovascular: No Edema, - - loud systolic murmur Abdominal: NL Sounds; No Tenderness; No Distention Extremities: No Clubbing, Cyanosis, - - DP+2 bilaterally Skin: No Rash or Ulcers Neurological: Alert and Oriented x 3 Nutrition: - - NPO for CATH will resume diet after cath. Result Diagrams: 06/18/17 05:41 06/18/17 05:41 Additional Lab and Data: Lab Results 06/16/17 Range/Units 07:21 WBC 8.9 (3.5-10.8) 10^3/ul RBC 4.17 (4.0-5.4) 10^6/ul Hgb 13.4 (12.0-16.0) g/dl Hct 39 (35-47) % MCV 93 (80-97) fL MCH 32 H (27-31) pg MCHC 35 (31-36) g/dl RDW 15 (10.5-15) % Plt Count 178 (150-450) 10^3/ul MPV 8 (7.4-10.4) um3 Neut % (Auto) 61.7 (38-83) % Lymph % (Auto) 29.9 (25-47) % [place] % (Auto) 5.3 (1-9) % Eos % (Auto) 2.6 (0-6) % Baso % (Auto) 0.5 (0-2) % Absolute Neuts (auto) 5.5 (1.5-7.7) 10^3/ul Absolute Lymphs (auto) 2.7 (1.0-4.8) 10^3/ul Absolute Monos (auto) 0.5 (0-0.8) 10^3/ul Absolute Eos (auto) 0.2 (0-0.6) 10^3/ul Absolute Basos (auto) 0 (0-0.2) 10^3/ul Absolute Nucleated RBC 0 10^3/ul Nucleated RBC % 0 Assess/Plan/Problems-Billing Assessment: 71 y/o [place] [facility] [place] - Patient Problems (1) Afib Current Visit: Yes Status: Acute Priority: High Code(s): I48.91 - UNSPECIFIED ATRIAL FIBRILLATION SNOMED Code(s): 35053765 Comment: Continue Elquis, (2) Aortic stenosis Current Visit: Yes Status: Acute Priority: High Code(s): I35.0 - NONRHEUMATIC AORTIC (VALVE) STENOSIS SNOMED Code(s): 58910101 Comment: Unable to do cath today- Dr hahn following suspect chest r/t retry cardiac cath in am, (3) COPD (chronic obstructive pulmonary disease) Current Visit: Yes Status: Acute Priority: High Code(s): J44.9 - CHRONIC OBSTRUCTIVE PULMONARY DISEASE, UNSPECIFIED SNOMED Code(s): 16414337 Comment: Stable- Diminshed breath sounds bilat- continue nebs as needed (4) Chest pain Current Visit: Yes Status: Acute Priority: High Code(s): R07.9 - CHEST PAIN, UNSPECIFIED SNOMED Code(s): 56195794 Comment: Trops negative, Dr aHhn following, pain for cath, trops, negative, (5) DVT prophylaxis Current Visit: Yes Status: Acute Priority: High Code(s): TWF5321 - SNOMED Code(s): 902099097 Comment: elquis (6) Depression Current Visit: Yes Status: Acute Priority: High Code(s): F32.9 - MAJOR DEPRESSIVE DISORDER, SINGLE EPISODE, UNSPECIFIED SNOMED Code(s): 64966210 Comment: continue home medications (7) Restless leg syndrome Current Visit: Yes Status: Acute Comment: continue home medications- stable Status and Disposition: Change to inpatient, plan for cath in the AM,
[2017-06-19] MEDS: oxyCODONE/Acetamin 5/325 MG* TAB PO PRN ×3 (00:24→20:24)
[2017-06-19] MEDS: Levothyroxine TAB* 125 MCG TAB PO SCH (05:53)
[2017-06-19] MEDS: Insulin LISPRO* 1 UNITS UNIT SUBCUT SCH ×3 (07:54→17:33)
[2017-06-19] MEDS: Mometasone/Formoter 200/5 MDI INH SCH ×2 (08:17→19:35)
[2017-06-19] MEDS: Pramipexole TAB* 0.5 MG PO PRN ×3 (09:35→20:23)
[2017-06-19] MEDS: rOPINIRole TAB* 1 MG PO PRN ×3 (09:35→20:22)
[2017-06-19] MEDS: Metoprolol Succinate XL TAB* 25 MG PO SCH (09:35)
[2017-06-19] MEDS: Baclofen TAB* 10 MG PO SCH ×3 (09:36→20:23)
[2017-06-19] MEDS: Apixaban* 5 MG TAB PO SCH ×2 (09:37→20:23)
[2017-06-19] MEDS: Gabapentin CAP(*) 400 MG PO SCH ×3 (09:37→20:23)
[2017-06-19] MEDS ORDERED: NS 0.9% 1000 ML* 1,000 ML IV SCH ×2 (13:00→14:45)
[2017-06-19] MEDS ORDERED: fentaNYL* 50 MCG/ML 2 ML VIAL (100 MCG VIAL) ONE (13:47)
[2017-06-19] MEDS ORDERED: Heparin 2 UNITS/ML IVPREMIX* 2,000 ML IV ONE (13:47)
[2017-06-19] MEDS ORDERED: Heparin(*) 1000 UNIT/ML 10 ML VIAL CATH LAB IV ONE (13:47)
[2017-06-19] MEDS ORDERED: nitroGLYCERIN DRIP* 25,000 MCG/250 ML BTL ONE (13:47)
[2017-06-19] MEDS ORDERED: Lidocaine 1% INJ* 10 MG/ML 30 ML SDV ONE (13:47)
[2017-06-19] MEDS ORDERED: VERAPAMIL 2.5 MG/ML 4 ML VIAL ONE (13:47)
[2017-06-19] MEDS ORDERED: Midazolam* 1 MG/ML 10 ML VIAL (10 MG) ONE (13:48)
[2017-06-19] MEDS ORDERED: Iohexol 350 (CONTRAST) 200 ML MDV IV ONE (13:51)
[2017-06-19] MEDS ORDERED: diPHENhydraMINE IV* 50 MG/ML 1 ml VIAL (BENADRYL) ONE (14:12)
[2017-06-19] MEDS ORDERED: NS 0.9% 1000 ML* 1,000 ML IV PRN (14:40)
--- NOTE | 2017-06-19 16:22 | PN ---
Subjective Date of Service: 06/19/17 Interval History: no complaints, Denies nausea vomiting or diarrhea , Denies chest pain at this time. Denies shortness of breath. Denies abd pain or urinary symptoms. Denies fever or chills Family History: Unchanged from Admission Social History: Unchanged from Admission Past Medical History: Unchanged from Admission Objective Active Medications: Acetaminophen (Tylenol Tab*) 650 mg PO Q4H PRN PRN Reason: FEVER/PAIN Albuterol (Ventolin 2.5 Mg/3 Ml Neb.Marjorie*) 2.5 mg INH Q2H PRN PRN Reason: SOB/WHEEZING Albuterol (Ventolin Hfa Inhaler*) 2 puff INH Q4H PRN PRN Reason: SOB/WHEEZING Apixaban (Eliquis*) 5 mg PO BID [facility] Last Admin: 06/19/17 09:37 Dose: Not Given Atorvastatin Calcium (Lipitor*) 20 mg PO 1700 [facility] Last Admin: 06/18/17 16:03 Dose: 20 mg Baclofen (Lioresal Tab*) 10 mg PO TID [facility] Last Admin: 06/19/17 14:22 Dose: 10 mg Dextrose (D50w Syringe 50 Ml*) 12.5 gm IV PUSH .FOR FS < 60 - SS PRN PRN Reason: FS < 60 Gabapentin (Neurontin Cap(*)) 400 mg PO TID [facility] Last Admin: 06/19/17 14:22 Dose: 400 mg Sodium Chloride (Ns 0.9% 1000 Ml*) 1,000 mls @ 100 mls/hr IV .per rate [facility] Stop: 06/19/17 17:00 Sodium Chloride (Ns 0.9% 1000 Ml*) 1,000 mls @ 1,000 mls/hr IV .BOLUS PRN; Wide Open PRN Reason: SBP < 90 MMHG Insulin Human Lispro (Humalog*) 0 units SUBCUT AC [facility] PRN Reason: Protocol Last Admin: 06/19/17 12:30 Dose: Not Given Levothyroxine Sodium (Synthroid Tab*) 125 mcg PO 0600 [facility] Last Admin: 06/19/17 05:53 Dose: 125 mcg Metoprolol Succinate (Toprol Xl Tab*) 25 mg PO DAILY [facility] Last Admin: 06/19/17 09:35 Dose: 25 mg Mometasone Furoate/Formoterol Fumar (Dulera 200/5 Mdi*) 2 puff INH BID [facility] Last Admin: 06/19/17 08:17 Dose: 2 puff Ondansetron HCl (Zofran Inj*) 4 mg IV Q6H PRN PRN Reason: NAUSEA Oxycodone/Acetaminophen (Percocet 5/325 Tab*) 2 tab PO Q4H PRN PRN Reason: PAIN Last Admin: 06/19/17 09:35 Dose: 2 tab Pramipexole Dihydrochloride (Mirapex Tab*) 0.5 mg PO TID PRN PRN Reason: LEG CRAMPS Last Admin: 06/19/17 14:21 Dose: 0.5 mg Ropinirole HCl (Requip Tab*) 1 mg PO TID PRN PRN Reason: for restless leg syndrome Last Admin: 06/19/17 14:22 Dose: 1 mg Vital Signs - 8 hr 06/19/17 06/19/17 06/19/17 08:18 08:19 09:35 Temperature Pulse Rate 78 Respiratory 18 20 Rate Blood Pressure (mmHg) O2 Sat by Pulse 98 98 Oximetry 06/19/17 06/19/17 06/19/17 09:37 11:28 14:22 Temperature 97.7 F Pulse Rate 48 Respiratory 18 18 11 Rate Blood Pressure 135/53 (mmHg) O2 Sat by Pulse 93 Oximetry 06/19/17 06/19/17 06/19/17 14:37 14:51 14:52 Temperature Pulse Rate 49 Respiratory 16 18 Rate Blood Pressure 150/55 153/59 (mmHg) O2 Sat by Pulse 95 Oximetry 06/19/17 06/19/17 06/19/17 15:00 15:15 15:30 Temperature Pulse Rate 51 47 46 Respiratory 18 18 17 Rate Blood Pressure 143/54 119/49 84/64 (mmHg) O2 Sat by Pulse 92 95 93 Oximetry 06/19/17 06/19/17 06/19/17 15:34 15:45 15:48 Temperature Pulse Rate 44 47 Respiratory 18 18 20 Rate Blood Pressure 121/52 121/66 (mmHg) O2 Sat by Pulse 92 93 Oximetry 06/19/17 06/19/17 16:00 16:11 Temperature Pulse Rate 52 49 Respiratory 19 21 Rate Blood Pressure 88/65 111/49 (mmHg) O2 Sat by Pulse 94 90 Oximetry Oxygen Devices in Use Now: Nasal Cannula Eyes: No Scleral Icterus Ears/Nose/Mouth/Throat: Clear Oropharnyx, Mucous Membranes Moist Neck: NL Appearance and Movements; NL JVP, Trachea Midline Respiratory: Symmetrical Chest Expansion and Respiratory Effort, Clear to Auscultation, - - diminished breath sounds t/o bilat Cardiovascular: NL Sounds; No Murmurs; No JVD, RRR, No Edema Abdominal: NL Sounds; No Tenderness; No Distention Extremities: No Edema, No Clubbing, Cyanosis Skin: No Rash or Ulcers Neurological: Alert and Oriented x 3 Nutrition: - - NPO for cath today, will resume diet when able Result Diagrams: 06/18/17 05:41 06/18/17 05:41 Additional Lab and Data: Lab Results 06/16/17 Range/Units 07:21 WBC 8.9 (3.5-10.8) 10^3/ul RBC 4.17 (4.0-5.4) 10^6/ul Hgb 13.4 (12.0-16.0) g/dl Hct 39 (35-47) % MCV 93 (80-97) fL MCH 32 H (27-31) pg MCHC 35 (31-36) g/dl RDW 15 (10.5-15) % Plt Count 178 (150-450) 10^3/ul MPV 8 (7.4-10.4) um3 Neut % (Auto) 61.7 (38-83) % Lymph % (Auto) 29.9 (25-47) % [place] % (Auto) 5.3 (1-9) % Eos % (Auto) 2.6 (0-6) % Baso % (Auto) 0.5 (0-2) % Absolute Neuts (auto) 5.5 (1.5-7.7) 10^3/ul Absolute Lymphs (auto) 2.7 (1.0-4.8) 10^3/ul Absolute Monos (auto) 0.5 (0-0.8) 10^3/ul Absolute Eos (auto) 0.2 (0-0.6) 10^3/ul Absolute Basos (auto) 0 (0-0.2) 10^3/ul Absolute Nucleated RBC 0 10^3/ul Nucleated RBC % 0 Assess/Plan/Problems-Billing Assessment: 71 y/o [place] [facility] [place] - Patient Problems (1) Afib Current Visit: Yes Status: Acute Priority: High Code(s): I48.91 - UNSPECIFIED ATRIAL FIBRILLATION SNOMED Code(s): 42988443 Comment: Continue Elquis, (2) Aortic stenosis Current Visit: Yes Status: Acute Priority: High Code(s): I35.0 - NONRHEUMATIC AORTIC (VALVE) STENOSIS SNOMED Code(s): 08420012 Comment: Cath today - pending Dr kayla strickland suspect chest pain is r/t severe retry cardiac cath in am , (3) COPD (chronic obstructive pulmonary disease) Current Visit: Yes Status: Acute Priority: High Code(s): J44.9 - CHRONIC OBSTRUCTIVE PULMONARY DISEASE, UNSPECIFIED SNOMED Code(s): 01967420 Comment: Stable- Diminshed breath sounds bilat- continue nebs as needed (4) Chest pain Current Visit: Yes Status: Acute Priority: High Code(s): R07.9 - CHEST PAIN, UNSPECIFIED SNOMED Code(s): 07638201 Comment: Trops negative, Dr Hahn following, pain for cath, trops, negative, (5) DVT prophylaxis Current Visit: Yes Status: Acute Priority: High Code(s): YQT8676 - SNOMED Code(s): 225640335 Comment: elquis (6) Depression Current Visit: Yes Status: Acute Priority: High Code(s): F32.9 - MAJOR DEPRESSIVE DISORDER, SINGLE EPISODE, UNSPECIFIED SNOMED Code(s): 24468647 Comment: continue home medications (7) Restless leg syndrome Current Visit: Yes Status: Acute Comment: continue home medications- stable Status and Disposition: Change to inpatient, plan for cath today, results pending
[2017-06-19] MEDS: Atorvastatin* 20 MG TAB PO SCH (17:38)
[2017-06-20] MEDS: Levothyroxine TAB* 125 MCG TAB PO SCH (05:52)
[2017-06-20] MEDS: Insulin LISPRO* 1 UNITS UNIT SUBCUT SCH ×2 (08:08→12:39)
[2017-06-20] MEDS: Apixaban* 5 MG TAB PO SCH (08:31)
[2017-06-20] MEDS: Gabapentin CAP(*) 400 MG PO SCH (08:31)
[2017-06-20] MEDS: Baclofen TAB* 10 MG PO SCH (08:32)
[2017-06-20] MEDS: Metoprolol Succinate XL TAB* 25 MG PO SCH (08:32)
[2017-06-20] MEDS: Mometasone/Formoter 200/5 MDI INH SCH (08:35)
[2017-06-20] MEDS: Pramipexole TAB* 0.5 MG PO PRN (11:04)
[2017-06-20] MEDS: oxyCODONE/Acetamin 5/325 MG* TAB PO PRN (11:04)
[2017-06-20] MEDS: rOPINIRole TAB* 1 MG PO PRN (11:04)
[2017-06-20 14:44] VITALS: BP 146/53
--- NOTE | 2017-06-21 19:32 | PN ---
Subjective Date of Service: 06/20/17 Family History: Unchanged from Admission Social History: Unchanged from Admission Past Medical History: Unchanged from Admission Objective Oxygen Devices in Use Now: Nasal Cannula Appearance: appears comfortable resting in the bed, alert and awake Eyes: No Scleral Icterus Ears/Nose/Mouth/Throat: Clear Oropharnyx, Mucous Membranes Moist Neck: NL Appearance and Movements; NL JVP, Trachea Midline Respiratory: Symmetrical Chest Expansion and Respiratory Effort, Clear to Auscultation, - - dimished breath sounds lower lung nelson Cardiovascular: RRR, No Edema, - - loud systolic murmur Extremities: No Edema, No Clubbing, Cyanosis Skin: No Rash or Ulcers Neurological: Alert and Oriented x 3, NL Sensation Nutrition: Taking PO's Result Diagrams: 06/18/17 05:41 06/18/17 05:41 Additional Lab and Data: Lab Results 06/16/17 Range/Units 07:21 WBC 8.9 (3.5-10.8) 10^3/ul RBC 4.17 (4.0-5.4) 10^6/ul Hgb 13.4 (12.0-16.0) g/dl Hct 39 (35-47) % MCV 93 (80-97) fL MCH 32 H (27-31) pg MCHC 35 (31-36) g/dl RDW 15 (10.5-15) % Plt Count 178 (150-450) 10^3/ul MPV 8 (7.4-10.4) um3 Neut % (Auto) 61.7 (38-83) % Lymph % (Auto) 29.9 (25-47) % [place] % (Auto) 5.3 (1-9) % Eos % (Auto) 2.6 (0-6) % Baso % (Auto) 0.5 (0-2) % Absolute Neuts (auto) 5.5 (1.5-7.7) 10^3/ul Absolute Lymphs (auto) 2.7 (1.0-4.8) 10^3/ul Absolute Monos (auto) 0.5 (0-0.8) 10^3/ul Absolute Eos (auto) 0.2 (0-0.6) 10^3/ul Absolute Basos (auto) 0 (0-0.2) 10^3/ul Absolute Nucleated RBC 0 10^3/ul Nucleated RBC % 0 Assess/Plan/Problems-Billing Assessment: 71 y/o female patient presenting to [facility] [place] with complaints of chest pain - Patient Problems (1) Afib Status: Acute Priority: High Code(s): I48.91 - UNSPECIFIED ATRIAL FIBRILLATION SNOMED Code(s): 81525213 Comment: Continue Elquis, (2) Aortic stenosis Status: Acute Priority: High Code(s): I35.0 - NONRHEUMATIC AORTIC (VALVE) STENOSIS SNOMED Code(s): 47692488 Comment: Cath WNL Dr hahn following suspect chest pain is r/t severe retry cardiac cath in am , WNL (3) COPD (chronic obstructive pulmonary disease) Status: Acute Priority: High Code(s): J44.9 - CHRONIC OBSTRUCTIVE PULMONARY DISEASE, UNSPECIFIED SNOMED Code(s): 55122920 Comment: Stable- Diminshed breath sounds bilat- continue nebs as needed (4) Chest pain Status: Acute Priority: High Code(s): R07.9 - CHEST PAIN, UNSPECIFIED SNOMED Code(s): 84419418 Comment: Trops negative, Dr Hahn following, pain for cath, trops, negative, (5) DVT prophylaxis Status: Acute Priority: High Code(s): DQQ5274 - SNOMED Code(s): 899409786 Comment: elquis (6) Depression Status: Acute Priority: High Code(s): F32.9 - MAJOR DEPRESSIVE DISORDER, SINGLE EPISODE, UNSPECIFIED SNOMED Code(s): 68700858 Comment: continue home medications (7) Restless leg syndrome Status: Acute Comment: continue home medications- stable Status and Disposition: Change to inpatient, plan for cath, results WNL, will discharge
--- NOTE | 2017-06-24 14:19 | DS ---
DISCHARGE SUMMARY: DATE OF ADMISSION: 06/16/17 DATE OF DISCHARGE: 06/20/17 ATTENDING PROVIDER: Annelise Mack MD* (DICTATED BY SULY URBINA NP) PRIMARY CARE PROVIDER: Dr. Marrero. PRIMARY DIAGNOSIS: Chest pain. SECONDARY DIAGNOSES: 1. Osteoarthritis. 2. History of congestive heart failure. 3. History of myocardial infarction x2. 4. Diabetes. 5. Hypothyroidism. 6. Cerebrovascular accident. 7. Atrial fibrillation. 8. Chronic obstructive pulmonary disease. 9. Uterine cancer. 10. Hypertension. 11. Hyperlipidemia. STUDIES WHILE IN THE HOSPITAL: On 06/16/17, she had transthoracic echocardiogram, which showed moderate concentric left ventricular hypertrophy is observed, global left ventricular wall motion and contractility are within normal limits. There is normal left ventricular systolic function, estimated ejection fraction is 60% to 65%. The right ventricular global systolic function is normal. Moderate aortic leaf calcification is visualized. There is moderate aortic regurgitation and there is severe aortic stenosis. The mean gradient of the aortic valve is 27.93 mmHg, mitral valve leaflets mobility is mildly restricted. There is mild mitral regurgitation, mild tricuspid regurgitation. There is evidence of mild pulmonary hypertension. There is no significant pericardial effusion. There are no significant changes compared to previous study on 03/27/17. She also had a chest x-ray on 06/16/17. Chest x-ray showed cardiomegaly unchanged. The lungs are slightly hyperinflated and clear. No pleural effusion is seen. She had an electrocardiogram on 06/16/17, which showed sinus rhythm, a rate of 51, which is sinus bradycardia. She had a cardiac catheterization on 06/19/17, which showed no coronary artery disease. DISCHARGE MEDICATIONS: There are no new home medications. Continued medications are: 1. Januvia 100 mg p.o. daily. 2. Mirapex 0.5 mg t.i.d. as needed. 3. Gabapentin 400 mg p.o. t.i.d.. 4. Metformin 500 mg p.o. b.i.d. 5. Synthroid 125 mcg p.o. q.a.m. 6. Eliquis 5 mg p.o. b.i.d. 7. Oxycodone/acetaminophen 10/325 one tablet daily as needed. 8. Acetaminophen 500 mg p.o. b.i.d. p.r.n. 9. Metoprolol succinate 25 mg p.o. daily. 10. Nitroglycerin 0.4 mg sublingual as needed. 11. Symbicort 160/4.5 two puffs b.i.d. 12. Requip 1 mg p.o. t.i.d. as needed. 13. Albuterol 2 puffs inhaler q.4 hours as needed for shortness of breath. 14. Celebrex 200 mg p.o. daily. 15. Multivitamin 1 tablet p.o. daily. 16. Baclofen 10 mg p.o. t.i.d. HISTORY OF PRESENT ILLNESS AND HOSPITAL COURSE: Ms. Regalado is a 71-year-old female that presented to the emergency room with a history of severe aortic stenosis. She is followed by Dr. Hahn. She has a history of diabetes, hypothyroidism, CHF, CAD, AFib, COPD, and a history of uterine cancer. She also has a history of 2 mild heart attacks in the past. She presented to the emergency room approximately 5 in the morning as she woke up and started having intermittent chest discomfort. She states that the pain has been coming and going over the past several hours and it was severe enough that she felt she needed to be seen. She said that the pain did go down her left arm, described it as a squeezing-type pain. She does admit to feeling under the weather for the past several days prior to her admission. She does report a productive thick cough with white sputum and has been feeling a little short of breath. She denies fevers or chills. She was admitted for evaluation of her new-onset chest pain. During her time in the emergency room, she had a chest x-ray, which was clear. She had a transthoracic echo, report as above. In short, it did show severe aortic stenosis. She had serial troponins drawn. Her troponin was 0.03 x4. Her CBC was within normal limits. Her potassium on admission was 4.3. Her magnesium was 1.9. Her BNP on admission was 191. While in the hospital, the patient was placed on telemetry and monitored throughout her hospital stay. She did receive a cardiac catheterization, which showed no acute coronary artery disease. Her troponins were within normal limits and were at 0.03 throughout her stay. She did complain of restless legs syndrome during her stay in the hospital, which was relieved with her home medication that she currently takes. Ms. Regalado is feeling better today and she wishes to go home. She does wear her oxygen at 2 L. Ms. Regalado is stable for discharge home today. Vital signs are as follows, temperature was 98.6, pulse was 63, respirations are 18, O2 saturation was 96% on 2 L nasal cannula, blood pressure was 146/53. DISCHARGE PLAN: Ms. Regalado will be discharged back home today with home O2. Activity as tolerated. She should continue a low-sodium diet. As far as her chest pain, she should follow up with Dr. Hahn as scheduled for further evaluation of her aortic valve stenosis and possible replacement of that valve in the future. She was instructed to return to the emergency room if she had any shortness of breath or chest pain. She needs to follow up with her primary care provider in 4 to 7 days. This is a summary of a complex medical history and hospital stay. For further details, please see the entire medical record. TIME SPENT: Time spent on this discharge was approximately 60 minutes. Greater than half of that time was spent with the patient discussing her discharge plans and instructions. CONDITION ON DISCHARGE: Stable. SULY URBINA NP [id number]/LEONARD #: [id number] MEMO
== END 2017-06-20 15:43 | disposition home or self-care (01) | DRG 287 ==
LOC: ED 06:55 → MEDTELE 13:35 → OBSVTOIN 13:35
PROVIDERS: ADMIT Internal Medicine; ATTEND Internal Medicine
PROC: B2111ZZ Fluoroscopy of Multiple Coronary Arteries using Low Osmolar Contrast (ICD-10-PCS; principal; 2017-06-19)
DX: R07.89 Other chest pain (principal); E11.40 Type 2 diabetes mellitus with diabetic neuropathy, unspecified; E11.51 Type 2 diabetes mellitus with diabetic peripheral angiopathy without gangrene; I50.9 Heart failure, unspecified; I11.0 Hypertensive heart disease with heart failure; I48.0 Paroxysmal atrial fibrillation; I27.20 Pulmonary hypertension, unspecified; I08.3 Combined rheumatic disorders of mitral, aortic and tricuspid valves; G25.81 Restless legs syndrome; E03.9 Hypothyroidism, unspecified; E66.9 Obesity, unspecified; F17.210 Nicotine dependence, cigarettes, uncomplicated; E78.5 Hyperlipidemia, unspecified; F32.9 Major depressive disorder, single episode, unspecified; R00.1 Bradycardia, unspecified; G47.30 Sleep apnea, unspecified; J44.9 Chronic obstructive pulmonary disease, unspecified; M81.0 Age-related osteoporosis without current pathological fracture; F41.9 Anxiety disorder, unspecified; M19.90 Unspecified osteoarthritis, unspecified site; Z85.42 Personal history of malignant neoplasm of other parts of uterus; Z90.710 Acquired absence of both cervix and uterus; Z90.49 Acquired absence of other specified parts of digestive tract; Z88.1 Allergy status to other antibiotic agents; Z88.0 Allergy status to penicillin; Z88.8 Allergy status to other drugs, medicaments and biological substances; Z83.3 Family history of diabetes mellitus; Z82.49 Family history of ischemic heart disease and other diseases of the circulatory system; I25.2 Old myocardial infarction; Z86.73 Personal history of transient ischemic attack (TIA), and cerebral infarction without residual deficits; Z72.89 Other problems related to lifestyle; Z68.32 Body mass index [BMI] 32.0-32.9, adult; Z79.4 Long term (current) use of insulin
CPT/HCPCS: 36415; 71045; 80048; 80053; 80061; 81003; 81015; 83036; 83735; 83880; 84484; 85025; 85379; 85652; 86140; 87502; 87899; 93005; 93306; 94640; 94760; 96374; 96375; 99156; 99157; 99285; 99406; A9270-GY; J1170; J1200; J1644; J2060; J2250; J2270; J3010

== ENCOUNTER 2017-06-25 13:15 | Inpatient (IN) | payer MEDICARE, MEDICAID ==
[2017-06-25] MEDS ORDERED: Acetaminophen TAB* 325 MG PO ONE (13:42)
[2017-06-25] MEDS ORDERED: Ondansetron INJ* 2 MG/ML VIAL IV ONE (14:20)
[2017-06-25] MEDS ORDERED: Morphine INJ* 4 MG/ML 1 ML CARPUJECT IV ONE (14:20)
[2017-06-25 14:58] LABS: ABS Basophils 0.1 10^3/ul (0-0.2); ABS Eosinophils 0 10^3/ul (0-0.6); ABS Lymphocytes 1.3 10^3/ul (1.0-4.8); ABS Monocytes 0.6 10^3/ul (0-0.8); ABS Neutrophils 11.6 10^3/ul (1.5-7.7); ABS Nucleated RBC 0 10^3/ul; Eosinophil % 0.4 % (0-6); Hematocrit 39 % (35-47); Hemoglobin 13.2 g/dl (12.0-16.0); Lymphocyte % 9.5 % (25-47); Mean Corpuscular HGB Conc 34 g/dl (31-36); Mean Corpuscular Hemoglobin 32 pg (27-31); Mean Corpuscular Volume 94 fL (80-97); Mean Platelet Volume 8 um3 (7.4-10.4); Nucleated Red Blood Cells % 0; Platelet Count 179 10^3/ul (150-450); Red Blood Count 4.15 10^6/ul (4.0-5.4); Red Cell Distribution Width 15 % (10.5-15); White Blood Count 13.6 10^3/ul (3.5-10.8)
[2017-06-25 15:19] LABS: EGFR Non-African American 67.2 (>60)
--- NOTE | 2017-06-25 15:29 | RAD ---
HISTORY: Weakness COMPARISONS: June 16, 2017 VIEWS: 1: frontal portable view of the chest at 3:15 PM FINDINGS: LINES AND TUBES: None. CARDIOMEDIASTINAL SILHOUETTE: The cardiac silhouette is enlarged. The cardiomediastinal silhouette is otherwise normal for portable technique. PLEURA: The costophrenic angles are sharp. No pleural abnormalities are noted. LUNG PARENCHYMA: There is a diffuse reticular pattern with indistinct pulmonary vessels. ABDOMEN: The upper abdomen is clear. There is no subphrenic gas. BONES AND SOFT TISSUES: No bone or soft tissue abnormalities are noted. IMPRESSION: CARDIOMEGALY WITH PULMONARY INTERSTITIAL EDEMA
[2017-06-25] MEDS ORDERED: Nitroglycerin 2% OINT* 1 GM PAK TOPICAL ONE (16:50)
[2017-06-25] MEDS ORDERED: Furosemide IV* 10 MG/ML 2 ML VIAL (20 MG) IV SLOW PU ONE (16:50)
[2017-06-25] MEDS ORDERED: Magnesium Sulfate 2 GM IV* 2 GM/50 ML BAG IVPB ONE (17:56)
[2017-06-25] MEDS ORDERED: Potassium Chlor TAB* 20 MEQ TAB.ER PO ONE (17:56)
[2017-06-25] MEDS ORDERED: rOPINIRole TAB* 1 MG PO ONE (18:29)
[2017-06-25 18:52] LABS: Urine Appearance Clear; Urine Blood Negative (Negative); Urine Color Straw; Urine Ketones Negative (Negative); Urine Protein Negative (Negative); Urine Specific Gravity 1.009 (1.010-1.030); Urine Urobilinogen Negative (Negative)
[2017-06-25] MEDS ORDERED: Al Hydrox/Mg Hydrox/Simet LIQ* 30 ML UDC PO PRN (18:58)
[2017-06-25] MEDS ORDERED: Ondansetron INJ* 2 MG/ML VIAL IV PRN (18:58)
[2017-06-25] MEDS ORDERED: Acetaminophen TAB* 325 MG PO PRN (18:58)
[2017-06-25] MEDS ORDERED: Albuterol HFA INHALER* 8 gm MDI INH PRN (19:01)
[2017-06-25] MEDS ORDERED: Dextrose 50% Syringe 50 ML* 25 GM/50 ML SYRINGE IV PUSH PRN (19:12)
[2017-06-25] MEDS: Mometasone/Formoter 200/5 MDI INH SCH (19:58)
[2017-06-25] MEDS: Clindamycin 600 MG IVPREMIX(* 600 MG/50 ML SDV IV SCH (20:12)
[2017-06-25] MEDS: Docusate CAP* 100 MG PO SCH (20:13)
[2017-06-25] MEDS: oxyCODONE/Acetamin 5/325 MG* TAB PO PRN (20:13)
[2017-06-25] MEDS: Senna TAB PO SCH (20:13)
[2017-06-25] MEDS: Pramipexole TAB* 0.5 MG PO PRN (20:13)
[2017-06-25] MEDS: Gabapentin CAP(*) 400 MG PO SCH (20:13)
[2017-06-25] MEDS: Baclofen TAB* 10 MG PO SCH (20:14)
[2017-06-25] MEDS: Insulin LISPRO* 1 UNITS UNIT SUBCUT SCH (21:57)
[2017-06-25] MEDS: Apixaban* 5 MG TAB PO SCH (22:02)
[2017-06-25] MEDS: rOPINIRole TAB* 1 MG PO PRN (22:02)
--- NOTE | 2017-06-25 23:17 | HP ---
CC: Dr. Marrero; Dr. Hahn * HISTORY AND PHYSICAL: DATE OF ADMISSION: 06/25/17 PRIMARY CARE PROVIDER: Dr. Marrero. CHIEF COMPLAINT: Status after a fall with generalized weakness and uncontrolled pain. HISTORY OF PRESENT ILLNESS: Elysia Regalado is a 71-year-old female with history of chronic pain, chronic narcotic use as well as restless leg syndrome who has history of coronary artery disease and in fact was in the hospital at the beginning of this month from 06/16/17 to 06/20/17 for chest pain with cardiac catheterization that did not show any new acute lesions who presented today after a fall. The patient is in uncontrolled pain and restless leg syndrome. She is frequently "kicking" in the bed when lying down. She stated that due to some kind of a new rule that was introduced at the beginning of the year, her Percocet was discontinued and she only can take 1 tablet a day and in the past she would be taking 2 to 3 tablets a day. She stated that due to that her pain and her restless legs are uncontrolled and she could not hold weight on her legs today when her restless leg syndrome acted up and she fell down. She did not lose consciousness. She denied hitting head. The patient also stated that she had had problems with intermittent nausea and vomiting when probably withdrawing from narcotics. She is going to be admitted with diagnosis of after fall. The patient also appears to have aspirated. PAST MEDICAL HISTORY: 1. History of diastolic CHF. 2. History of MO x2. 3. History of severe aortic stenosis. 4. Last cardiac catheterization was obtained on 06/18/17, and although I do not have the official report yet, it was noted to be unremarkable at the patient 's discharge. 5. Diabetes type 2. 6. Hypothyroidism. 7. History of CVA. 8. History of atrial fibrillation paroxysmal. 9. COPD, at 4 L of oxygen at home. 10. History of uterine cancer. 11. Hypertension. 12. Hyperlipidemia. 13. Status post hysterectomy. 14. Status post cholecystectomy. 15. History of carpal tunnel release. 16. History of chronic osteomyelitis in the left index finger. The patient has planned for amputation of the left index finger at some point. Her last echocardiogram was obtained on 06/16/17, which showed severe aortic stenosis with an estimated aortic valve area of 1.2 sq cm and EF of 60% to 65%. Please note that on 06/22/17, the patient was seen by Dr. Marrero, her primary care provider and it was noted that she was out of her blood pressure medications and those were restarted. She had been off her metoprolol for quite some time now, approximately 3 weeks. She also had been complaining of headaches and vomiting due to that. MEDICATIONS: Currently include: 1. Multivitamin 1 tablet daily. 2. Baclofen 10 mg 3 times a day. 3. Albuterol inhaler p.r.n. 4. Requip 1 mg 3 times a day. 5. Celebrex 200 mg daily that was actually discontinued [address] Marrero. 6. Symbicort 160/4.5, 2 puffs b.i.d. 7. Nitroglycerin on a p.r.n. basis sublingually. 8. Metoprolol succinate 25 mg daily. 9. Oxycodone with acetaminophen 1 tablet daily p.r.n. Please note that the patient was taking up to 3 tablets daily 2 months ago. 10. Metformin 500 mg b.i.d. 11. Levothyroxine 125 mcg daily. 12. Eliquis 5 mg b.i.d. 13. Mirapex 0.5 mg t.i.d. 14. Gabapentin 400 mg t.i.d. 15. Januvia 100 mg daily. ALLERGIES: Include PENICILLIN, TORADOL, CEPHALOSPORIN, CARBAPENEM and ASPIRIN. FAMILY HISTORY: Positive for both parents with heart disease and CHF. SOCIAL HISTORY: The patient has history of smoking 1 pack per day and she had been doing so ever since she was a teenager. She denies any alcohol or drug use. She lives alone. Her surrogate decision maker is social work nurseMary. REVIEW OF SYSTEMS: Please see history of present illness. Positive for nausea , vomiting. Negative for abdominal pain. Positive for chronic cough. The patient had been afebrile. Denies chest pain. Her shortness of breath is chronic, but somewhat more pronounced. The patient complains of severe lower back pain, which is chronic and restless leg syndrome due to that. Remaining 12 systems reviewed with the patient and were otherwise negative. PHYSICAL EXAMINATION GENERAL: The patient is a very pleasant 71-year-old female who is in no acute distress. Awake and oriented x3. VITAL SIGNS: Blood pressure 119/63, heart rate of 91 and regular, respiratory rate 17, oxygen saturation 95% on 4 L of oxygen nasal cannula, temperature 97.0. HEENT: Head atraumatic, normocephalic. Eyes: Pupils are equal and reactive to light and accommodation. Oropharynx is clear. Mucosa moist. NECK: Supple. No JVD. No bruit bilaterally. RESPIRATORY: Rhonchi at right middle and lower lung on auscultation. CARDIOVASCULAR: Regular rate and rhythm. No murmur. ABDOMEN: Soft, nontender. Bowel sounds are present in all 4 quadrants. EXTREMITIES: There is no edema. Pulses are +2 bilaterally. No clubbing or cyanosis. Evaluation of left index finger that the patient indicates had osteomyelitis in the past. There is what appears to be osteoarthritic like change at the base of her distal phalanx with no evidence of cellulitis. No tenderness and no limit of range of motion. DIAGNOSTIC STUDIES/LAB DATA: Include white blood cell count of 13.6, hemoglobin of 13.2, hematocrit of 39, platelets of 179,000. Sodium of 140, potassium of 3.4, chloride 111, carbon dioxide 19, BUN 26, creatinine 0.84. Liver function is unremarkable. Total CPK of 308, magnesium of 1.7, C-reactive protein of 256. Brain natriuretic peptide was 186, troponin of 0.01, TSH of 4.2. The patient's portable chest x-ray showed "cardiomegaly with pulmonary interstitial edema." The patient's EKG showed sinus rhythm with heart rate 90 beats per minute with what appears to be sinus arrhythmia with anterior fascicular block and no acute ST changes. ASSESSMENT AND PLAN: 1. Fall likely due to uncontrolled pain and uncontrollable restless leg syndrome in a patient who appears to be withdrawing from narcotics. I will place the patient on Percocet 5/325 mg every 4 hours p.r.n. I will ask Physical Therapy/Occupational Therapy to see patient in evaluation and treatment. 2. The patient's chronic obstructive pulmonary disease does not appear to be in exacerbation as she is going to be continued on the support of oxygen and inhalers. 3. Although the patient appears to have congestive heart failure on her chest x - ray, the chest x-ray is unchanged from last hospital stay when she was not in congestive heart failure either. Her BNP is only mildly elevated. She appears actually more dehydrated. She received 20 mg of IV Lasix in the emergency department that will not be continued. At this point, the patient is not going to be placed on more diuretics or IV fluids. We will continue observation. 4. The patient appears to have aspirated when she was vomiting for the past several days. Clinically, she appears to have aspiration pneumonia in the right middle lung, although it is not visible on the x-ray per se. She is going to be treated with clindamycin in consideration of her multiple allergies. 5. In regards to her chronic left index finger osteo, it does not appear to be in exacerbation. Her CRP is markedly elevated, but I suspect this is due to aspiration. 6. For history of paroxysmal atrial fibrillation. Currently, she is in sinus rhythm. We will continue her metoprolol and apixaban. 7. For diabetes, her Januvia and metformin is going to be held and she is going to be placed no insulin sliding scale. 8. For DVT prophylaxis, the patient is going to be placed on Eliquis as mentioned above. 9. The patient's code status is full and her surrogate is her social work nurse. TIME SPENT: Approximately 65 minutes was spent on admission of this patient, more than half that time was spent [id number] with the patient during the interview and physical exam. [id number]/[facility] #: [id number] MEMO
[2017-06-26] MEDS: Clindamycin 600 MG IVPREMIX(* 600 MG/50 ML SDV IV SCH ×3 (04:57→21:36)
[2017-06-26] MEDS: oxyCODONE/Acetamin 5/325 MG* TAB PO PRN ×3 (04:57→21:33)
[2017-06-26] MEDS: Levothyroxine TAB* 125 MCG TAB PO SCH (04:57)
[2017-06-26] MEDS: Albuterol 2.5 MG/3 ML NEB.SOL* (0.083%) INH PRN ×3 (05:13→11:42)
[2017-06-26 06:37] LABS: ABS Basophils 0 10^3/ul (0-0.2); ABS Eosinophils 0.1 10^3/ul (0-0.6); ABS Lymphocytes 0.9 10^3/ul (1.0-4.8); ABS Monocytes 0.7 10^3/ul (0-0.8); ABS Neutrophils 7.8 10^3/ul (1.5-7.7); ABS Nucleated RBC 0 10^3/ul; Eosinophil % 1.1 % (0-6); Hematocrit 34 % (35-47); Hemoglobin 11.6 g/dl (12.0-16.0); Lymphocyte % 9.4 % (25-47); Mean Corpuscular HGB Conc 34 g/dl (31-36); Mean Corpuscular Hemoglobin 32 pg (27-31); Mean Corpuscular Volume 94 fL (80-97); Mean Platelet Volume 9 um3 (7.4-10.4); Nucleated Red Blood Cells % 0; Platelet Count 170 10^3/ul (150-450); Red Blood Count 3.63 10^6/ul (4.0-5.4); Red Cell Distribution Width 15 % (10.5-15); White Blood Count 9.6 10^3/ul (3.5-10.8)
[2017-06-26] MEDS: Mometasone/Formoter 200/5 MDI INH SCH ×2 (07:28→19:29)
[2017-06-26] MEDS: Insulin LISPRO* 1 UNITS UNIT SUBCUT SCH ×4 (08:44→21:37)
[2017-06-26] MEDS: Apixaban* 5 MG TAB PO SCH ×2 (08:52→21:32)
[2017-06-26] MEDS: Senna TAB PO SCH ×2 (08:52→21:32)
[2017-06-26] MEDS: Baclofen TAB* 10 MG PO SCH ×3 (08:52→21:32)
[2017-06-26] MEDS: PARoxetine HCL TAB* 10 MG PO SCH (08:53)
[2017-06-26] MEDS: Docusate CAP* 100 MG PO SCH ×2 (08:53→21:32)
[2017-06-26] MEDS: Gabapentin CAP(*) 400 MG PO SCH ×3 (08:53→21:32)
[2017-06-26] MEDS: Metoprolol Succinate XL TAB* 25 MG PO SCH (08:53)
[2017-06-26 09:56] LABS: EGFR Non-African American 59.8 (>60)
--- NOTE | 2017-06-26 18:51 | PN ---
Subjective Date of Service: 06/26/17 Interval History: Pt feels better, today developed wheezing in her chest. Objective Active Medications: Acetaminophen (Tylenol Tab*) 650 mg PO Q4H PRN PRN Reason: FEVER/PAIN Al Hydrox/Mg Hydrox/Simethicone (Maalox Plus*) 30 ml PO Q6H PRN PRN Reason: INDIGESTION Albuterol (Ventolin Hfa Inhaler*) 2 puff INH Q4H PRN PRN Reason: SOB/WHEEZING Albuterol (Ventolin 2.5 Mg/3 Ml Neb.Marjorie*) 2.5 mg INH [id number] AWAKE [facility] Apixaban (Eliquis*) 5 mg PO BID [facility] Last Admin: 06/26/17 08:52 Dose: 5 mg Baclofen (Lioresal Tab*) 10 mg PO TID [facility] Last Admin: 06/26/17 13:42 Dose: 10 mg Dextrose (D50w Syringe 50 Ml*) 12.5 gm IV PUSH .FOR FS < 60 - SS PRN PRN Reason: FS < 60 Docusate Sodium (Colace Cap*) 100 mg PO BID [facility] Last Admin: 06/26/17 08:53 Dose: 100 mg Gabapentin (Neurontin Cap(*)) 400 mg PO TID [facility] Last Admin: 06/26/17 13:41 Dose: 400 mg Clindamycin HCl/Dextrose (Cleocin 600 Mg Ivpremix(*) Sdv) 600 mg in 50 mls @ 100 mls/hr IV Q8H [facility] Last Admin: 06/26/17 12:33 Dose: 100 mls/hr Insulin Human Lispro (Humalog*) 0 units SUBCUT ACHS [facility] PRN Reason: Protocol Last Admin: 06/26/17 17:17 Dose: Not Given Levothyroxine Sodium (Synthroid Tab*) 125 mcg PO 0600 [facility] Last Admin: 06/26/17 04:57 Dose: 125 mcg Methylprednisolone Sodium Succinate (Solu-Medrol 40 Mg) 40 mg IV Q8H [facility] Metoprolol Succinate (Toprol Xl Tab*) 25 mg PO DAILY [facility] Last Admin: 06/26/17 08:53 Dose: 25 mg Mometasone Furoate/Formoterol Fumar (Dulera 200/5 Mdi*) 2 puff INH BID [facility] Last Admin: 06/26/17 07:28 Dose: 2 puff Ondansetron HCl (Zofran Inj*) 4 mg IV Q4H PRN PRN Reason: NAUSEA/VOMITING Oxycodone/Acetaminophen (Percocet 5/325 Tab*) 1 tab PO Q4H PRN PRN Reason: Pain Last Admin: 06/26/17 13:42 Dose: 1 tab Paroxetine HCl (Paxil Tab*) 10 mg PO DAILY [facility] Last Admin: 06/26/17 08:53 Dose: 10 mg Pramipexole Dihydrochloride (Mirapex Tab*) 0.5 mg PO TID PRN PRN Reason: LEG CRAMPS Last Admin: 06/25/17 20:13 Dose: 0.5 mg Ropinirole HCl (Requip Tab*) 1 mg PO TID PRN PRN Reason: for restless leg syndrome Last Admin: 06/25/17 22:02 Dose: 1 mg Senna (Senokot Tab*) 1 tab PO BID [facility] Last Admin: 06/26/17 08:52 Dose: 1 tab Vital Signs - 8 hr 06/26/17 06/26/17 06/26/17 10:55 11:44 11:46 Temperature 98.7 F Pulse Rate 91 77 Respiratory 17 22 18 Rate Blood Pressure 112/49 (mmHg) O2 Sat by Pulse 94 99 Oximetry 06/26/17 06/26/17 06/26/17 13:41 13:42 15:43 Temperature Pulse Rate Respiratory 18 18 20 Rate Blood Pressure (mmHg) O2 Sat by Pulse Oximetry 06/26/17 06/26/17 16:10 17:08 Temperature 98.3 F Pulse Rate 75 Respiratory 22 20 Rate Blood Pressure 110/63 (mmHg) O2 Sat by Pulse 96 Oximetry Oxygen Devices in Use Now: Nasal Cannula - at 4L Appearance: 71 yo f in NAD, AAOx3 , poor historian Eyes: No Scleral Icterus, PERRLA Ears/Nose/Mouth/Throat: NL Teeth, Lips, Gums, Mucous Membranes Moist Neck: NL Appearance and Movements; NL JVP, Trachea Midline Respiratory: Symmetrical Chest Expansion and Respiratory Effort, - - digguse wheezes b/l Cardiovascular: NL Sounds; No Murmurs; No JVD, - - irregular, 2/6 JUAN Abdominal: NL Sounds; No Tenderness; No Distention, No Hepatosplenomegaly Lymphatic: No Cervical Adenopathy Extremities: No Edema, No Clubbing, Cyanosis Skin: No Rash or Ulcers, No Nodules or Sclerosis Neurological: Alert and Oriented x 3, NL Muscle Strength and Tone Result Diagrams: 06/26/17 06:19 06/26/17 06:19 Assess/Plan/Problems-Billing Assessment: 71 yo f with h/o 02 dependent COPD(at 4 L), RLS, chronic pain, PAF, severe , CHF, hypothyroidism, CAD presents after a fall with h/o vomiting and possible aspiration - Patient Problems (1) Aspiration pneumonia Comment: Vomiting resolved Cont Clindamycin (2) COPD (chronic obstructive pulmonary disease) Comment: in exacerbation start Solu medrol (3) Afib Comment: Continue Elquis, today appears to be in a. fib, cont Eliquis (4) Aortic stenosis Comment: Cath WNL on 06/19/17 Dr garza following as outpatient (5) Acquired hypothyroidism Comment: continue home medications (6) Diabetes Comment: Blood sugars well controlled continue sliding scale, (7) Restless leg syndrome Comment: continue Requip (8) Muscular deconditioning Comment: pt is 2 person assist with walking. PT/OT to cont May need STR (9) DVT prophylaxis Comment: elquis Status and Disposition: inpatient
[2017-06-26] MEDS: Albuterol 2.5 MG/3 ML NEB.SOL* (0.083%) INH SCH (19:29)
[2017-06-26] MEDS ORDERED: Nitroglycerin TAB 0.4 MG* 0.4 MG TAB SL PRN (20:32)
[2017-06-26] MEDS: Pramipexole TAB* 0.5 MG PO PRN (21:32)
[2017-06-26] MEDS: methylPREDNISolone SOD 40 MG* 1 ML VIAL IV SCH (21:33)
[2017-06-26] MEDS: rOPINIRole TAB* 1 MG PO PRN (21:33)
[2017-06-27] MEDS: Albuterol 2.5 MG/3 ML NEB.SOL* (0.083%) INH SCH ×5 (00:35→19:35)
[2017-06-27] MEDS: Clindamycin 600 MG IVPREMIX(* 600 MG/50 ML SDV IV SCH ×3 (03:57→20:37)
[2017-06-27] MEDS: methylPREDNISolone SOD 40 MG* 1 ML VIAL IV SCH ×2 (03:58→11:29)
[2017-06-27] MEDS: oxyCODONE/Acetamin 5/325 MG* TAB PO PRN ×3 (04:05→21:00)
[2017-06-27] MEDS: Levothyroxine TAB* 125 MCG TAB PO SCH (05:28)
[2017-06-27] MEDS: Mometasone/Formoter 200/5 MDI INH SCH ×2 (07:23→19:36)
[2017-06-27 08:05] LABS: ABS Basophils 0 10^3/ul (0-0.2); ABS Eosinophils 0 10^3/ul (0-0.6); ABS Lymphocytes 0.4 10^3/ul (1.0-4.8); ABS Monocytes 0.1 10^3/ul (0-0.8); ABS Neutrophils 4.6 10^3/ul (1.5-7.7); ABS Nucleated RBC 0 10^3/ul; Eosinophil % 0 % (0-6); Hematocrit 34 % (35-47); Hemoglobin 11.6 g/dl (12.0-16.0); Mean Corpuscular HGB Conc 34 g/dl (31-36); Mean Corpuscular Hemoglobin 32 pg (27-31); Mean Corpuscular Volume 94 fL (80-97); Mean Platelet Volume 8 um3 (7.4-10.4); Nucleated Red Blood Cells % 0.1; Platelet Count 175 10^3/ul (150-450); Red Blood Count 3.62 10^6/ul (4.0-5.4); Red Cell Distribution Width 15 % (10.5-15); White Blood Count 5.1 10^3/ul (3.5-10.8)
[2017-06-27 08:24] LABS: EGFR Non-African American 69.1 (>60)
[2017-06-27] MEDS: Metoprolol Succinate XL TAB* 25 MG PO SCH (09:05)
[2017-06-27] MEDS: Senna TAB PO SCH ×2 (09:05→20:39)
[2017-06-27] MEDS: PARoxetine HCL TAB* 10 MG PO SCH (09:06)
[2017-06-27] MEDS: Docusate CAP* 100 MG PO SCH ×2 (09:06→20:39)
[2017-06-27] MEDS: Gabapentin CAP(*) 400 MG PO SCH ×3 (09:06→20:39)
[2017-06-27] MEDS: Baclofen TAB* 10 MG PO SCH ×3 (09:06→20:40)
[2017-06-27] MEDS: Insulin LISPRO* 1 UNITS UNIT SUBCUT SCH ×4 (09:06→21:00)
[2017-06-27] MEDS: Apixaban* 5 MG TAB PO SCH ×2 (09:07→20:39)
[2017-06-27] MEDS ORDERED: Mouth Piece, Nicotine* 1 EACH CARTRIDGE INH PRN (16:37)
[2017-06-27] MEDS ORDERED: Nicotine Inhaler* 10 MG AMP INH PRN (16:37)
--- NOTE | 2017-06-27 16:46 | PN ---
Subjective Date of Service: 06/27/17 Interval History: Feels better. No more wheezing. Little cough. Objective Active Medications: Acetaminophen (Tylenol Tab*) 650 mg PO Q4H PRN PRN Reason: FEVER/PAIN Al Hydrox/Mg Hydrox/Simethicone (Maalox Plus*) 30 ml PO Q6H PRN PRN Reason: INDIGESTION Albuterol (Ventolin Hfa Inhaler*) 2 puff INH Q4H PRN PRN Reason: SOB/WHEEZING Albuterol (Ventolin 2.5 Mg/3 Ml Neb.Marjorie*) 2.5 mg INH [id number] AWAKE [facility] Last Admin: 06/27/17 13:08 Dose: Not Given Apixaban (Eliquis*) 5 mg PO BID [facility] Last Admin: 06/27/17 09:07 Dose: 5 mg Baclofen (Lioresal Tab*) 10 mg PO TID [facility] Last Admin: 06/27/17 13:58 Dose: 10 mg Device (Nicotine Mouth Piece*) 1 each INH .USE WITH NICOTROL PRN PRN Reason: CRAVING Dextrose (D50w Syringe 50 Ml*) 12.5 gm IV PUSH .FOR FS < 60 - SS PRN PRN Reason: FS < 60 Docusate Sodium (Colace Cap*) 100 mg PO BID [facility] Last Admin: 06/27/17 09:06 Dose: 100 mg Gabapentin (Neurontin Cap(*)) 400 mg PO TID [facility] Last Admin: 06/27/17 13:58 Dose: 400 mg Clindamycin HCl/Dextrose (Cleocin 600 Mg Ivpremix(*) Sdv) 600 mg in 50 mls @ 100 mls/hr IV Q8H [facility] Last Admin: 06/27/17 11:29 Dose: 100 mls/hr Insulin Human Lispro (Humalog*) 0 units SUBCUT ACHS [facility] PRN Reason: Protocol Last Admin: 06/27/17 12:21 Dose: 8 units Levothyroxine Sodium (Synthroid Tab*) 125 mcg PO 0600 [facility] Last Admin: 06/27/17 05:28 Dose: 125 mcg Metoprolol Succinate (Toprol Xl Tab*) 25 mg PO DAILY [facility] Last Admin: 06/27/17 09:05 Dose: 25 mg Mometasone Furoate/Formoterol Fumar (Dulera 200/5 Mdi*) 2 puff INH BID [facility] Last Admin: 06/27/17 07:23 Dose: 2 puff Nicotine (Nicotine Inhaler*) 10 mg INH Q2H PRN PRN Reason: CRAVING Nitroglycerin (Nitroglycerin Tab 0.4 Mg*) 0.4 mg SL Q5M PRN PRN Reason: PAIN - CHEST Last Admin: 06/26/17 21:31 Dose: 0.4 mg Ondansetron HCl (Zofran Inj*) 4 mg IV Q4H PRN PRN Reason: NAUSEA/VOMITING Oxycodone/Acetaminophen (Percocet 5/325 Tab*) 1 tab PO Q4H PRN PRN Reason: Pain Last Admin: 06/27/17 12:21 Dose: 1 tab Paroxetine HCl (Paxil Tab*) 10 mg PO DAILY [facility] Last Admin: 06/27/17 09:06 Dose: 10 mg Pramipexole Dihydrochloride (Mirapex Tab*) 0.5 mg PO TID PRN PRN Reason: LEG CRAMPS Last Admin: 06/26/17 21:32 Dose: 0.5 mg Prednisone (Deltasone Tab*) 40 mg PO DAILY [facility] Ropinirole HCl (Requip Tab*) 1 mg PO TID PRN PRN Reason: for restless leg syndrome Last Admin: 06/26/17 21:33 Dose: 1 mg Senna (Senokot Tab*) 1 tab PO BID [facility] Last Admin: 06/27/17 09:05 Dose: 1 tab Vital Signs - 8 hr 06/27/17 06/27/17 06/27/17 09:06 11:29 12:21 Temperature Pulse Rate Respiratory 18 18 18 Rate Blood Pressure (mmHg) O2 Sat by Pulse Oximetry 06/27/17 06/27/17 06/27/17 13:58 15:05 15:08 Temperature 98.0 F Pulse Rate 64 Respiratory 20 18 20 Rate Blood Pressure 149/61 (mmHg) O2 Sat by Pulse 95 Oximetry Oxygen Devices in Use Now: Simple Face Mask - Alert, supine in bed with legs elevated. In good spirits. Looks comfortable. 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 Start prednisone taper 06/28/17. (3) Aortic stenosis Current Visit: No Status: Acute Priority: High Code(s): I35.0 - NONRHEUMATIC AORTIC (VALVE) STENOSIS SNOMED Code(s): 83462171 Comment: Cath WNL on 06/19/17 Dr kayla strickland as outpatient (4) Afib Current Visit: No Status: Acute Priority: High Code(s): I48.91 - UNSPECIFIED ATRIAL FIBRILLATION SNOMED Code(s): 87418963 Comment: Continue BB. Farhana (5) Hypothyroidism Current Visit: No Status: Acute Code(s): E03.9 - HYPOTHYROIDISM, UNSPECIFIED SNOMED Code(s): 57640565 Comment: Continue levothyroxine. TSH wnl 06/25/17. (6) Diabetes Current Visit: No Status: Acute Priority: High Code(s): E11.9 - TYPE 2 DIABETES MELLITUS WITHOUT COMPLICATIONS SNOMED Code(s): 69616297 Comment: Blood sugars well controlled continue sliding scale, (7) Restless leg syndrome Current Visit: No Status: Acute Comment: continue Requip (8) Muscular deconditioning Current Visit: Yes Status: Acute Code(s): R29.898 - OTH SYMPTOMS AND SIGNS INVOLVING THE MUSCULOSKELETAL SYSTEM SNOMED Code(s): 286706041 Comment: Still limited walking with PT on 06/27/17. May need STR Status and Disposition: inpatient
[2017-06-27] MEDS: rOPINIRole TAB* 1 MG PO PRN (18:48)
[2017-06-28] MEDS: Albuterol 2.5 MG/3 ML NEB.SOL* (0.083%) INH SCH ×2 (01:19→08:09)
[2017-06-28] MEDS: Clindamycin 600 MG IVPREMIX(* 600 MG/50 ML SDV IV SCH ×2 (04:58→11:53)
[2017-06-28] MEDS: Levothyroxine TAB* 125 MCG TAB PO SCH (05:43)
[2017-06-28] MEDS: oxyCODONE/Acetamin 5/325 MG* TAB PO PRN ×2 (07:12→20:48)
[2017-06-28] MEDS: Mometasone/Formoter 200/5 MDI INH SCH ×2 (08:12→21:20)
[2017-06-28] MEDS: Gabapentin CAP(*) 400 MG PO SCH ×3 (08:56→20:50)
[2017-06-28] MEDS: Insulin LISPRO* 1 UNITS UNIT SUBCUT SCH ×4 (08:56→20:46)
[2017-06-28] MEDS: Baclofen TAB* 10 MG PO SCH ×3 (08:56→20:49)
[2017-06-28] MEDS: Docusate CAP* 100 MG PO SCH ×2 (08:56→20:51)
[2017-06-28] MEDS: Senna TAB PO SCH ×2 (08:57→20:51)
[2017-06-28] MEDS: Metoprolol Succinate XL TAB* 25 MG PO SCH (08:57)
[2017-06-28] MEDS: Apixaban* 5 MG TAB PO SCH ×2 (08:57→20:49)
[2017-06-28] MEDS: PARoxetine HCL TAB* 10 MG PO SCH (08:57)
[2017-06-28] MEDS ORDERED: predniSONE TAB* 20 MG PO SCH (09:00)
[2017-06-28] MEDS ORDERED: Albuterol 2.5 MG/3 ML NEB.SOL* (0.083%) INH PRN (10:12)
[2017-06-28] MEDS: Pramipexole TAB* 0.5 MG PO PRN (10:14)
--- NOTE | 2017-06-28 14:50 | PN ---
Subjective Date of Service: 06/28/17 Interval History: No new c/o. Anxious to go home. Objective Active Medications: Acetaminophen (Tylenol Tab*) 650 mg PO Q4H PRN PRN Reason: FEVER/PAIN Al Hydrox/Mg Hydrox/Simethicone (Maalox Plus*) 30 ml PO Q6H PRN PRN Reason: INDIGESTION Albuterol (Ventolin Hfa Inhaler*) 2 puff INH Q4H PRN PRN Reason: SOB/WHEEZING Albuterol (Ventolin 2.5 Mg/3 Ml Neb.Marjorie*) 2.5 mg INH Q4H PRN PRN Reason: SOB/WHEEZING Apixaban (Eliquis*) 5 mg PO BID [facility] Last Admin: 06/28/17 08:57 Dose: 5 mg Baclofen (Lioresal Tab*) 10 mg PO TID [facility] Last Admin: 06/28/17 13:37 Dose: 10 mg Device (Nicotine Mouth Piece*) 1 each INH .USE WITH NICOTROL PRN PRN Reason: CRAVING Dextrose (D50w Syringe 50 Ml*) 12.5 gm IV PUSH .FOR FS < 60 - SS PRN PRN Reason: FS < 60 Docusate Sodium (Colace Cap*) 100 mg PO BID [facility] Last Admin: 06/28/17 08:56 Dose: 100 mg Gabapentin (Neurontin Cap(*)) 400 mg PO TID [facility] Last Admin: 06/28/17 13:37 Dose: 400 mg Clindamycin HCl/Dextrose (Cleocin 600 Mg Ivpremix(*) Sdv) 600 mg in 50 mls @ 100 mls/hr IV Q8H [facility] Last Admin: 06/28/17 11:53 Dose: 100 mls/hr Insulin Human Lispro (Humalog*) 0 units SUBCUT ACHS [facility] PRN Reason: Protocol Last Admin: 06/28/17 13:37 Dose: 4 units Levothyroxine Sodium (Synthroid Tab*) 125 mcg PO 0600 [facility] Last Admin: 06/28/17 05:43 Dose: 125 mcg Metoprolol Succinate (Toprol Xl Tab*) 25 mg PO DAILY [facility] Last Admin: 06/28/17 08:57 Dose: 25 mg Mometasone Furoate/Formoterol Fumar (Dulera 200/5 Mdi*) 2 puff INH BID [facility] Last Admin: 06/28/17 08:12 Dose: 2 puff Nicotine (Nicotine Inhaler*) 10 mg INH Q2H PRN PRN Reason: CRAVING Nitroglycerin (Nitroglycerin Tab 0.4 Mg*) 0.4 mg SL Q5M PRN PRN Reason: PAIN - CHEST Last Admin: 06/26/17 21:31 Dose: 0.4 mg Ondansetron HCl (Zofran Inj*) 4 mg IV Q4H PRN PRN Reason: NAUSEA/VOMITING Oxycodone/Acetaminophen (Percocet 5/325 Tab*) 1 tab PO Q4H PRN PRN Reason: Pain Last Admin: 06/28/17 07:12 Dose: 1 tab Paroxetine HCl (Paxil Tab*) 10 mg PO DAILY [facility] Last Admin: 06/28/17 08:57 Dose: 10 mg Pramipexole Dihydrochloride (Mirapex Tab*) 0.5 mg PO TID PRN PRN Reason: LEG CRAMPS Last Admin: 06/28/17 10:14 Dose: 0.5 mg Prednisone (Deltasone Tab*) 30 mg PO DAILY [facility] Ropinirole HCl (Requip Tab*) 1 mg PO TID PRN PRN Reason: for restless leg syndrome Last Admin: 06/27/17 18:48 Dose: 1 mg Senna (Senokot Tab*) 1 tab PO BID [facility] Last Admin: 06/28/17 08:57 Dose: 1 tab Vital Signs - 8 hr 06/28/17 06/28/17 06/28/17 07:12 07:42 08:00 Temperature 97.9 F Pulse Rate 38 Respiratory 20 16 22 Rate Blood Pressure 146/77 (mmHg) O2 Sat by Pulse 97 Oximetry 06/28/17 06/28/17 06/28/17 08:13 08:56 10:15 Temperature Pulse Rate 100 Respiratory 18 18 20 Rate Blood Pressure (mmHg) O2 Sat by Pulse 98 Oximetry 06/28/17 06/28/17 06/28/17 11:53 12:01 13:37 Temperature 97.6 F Pulse Rate 67 Respiratory 22 16 20 Rate Blood Pressure 121/40 (mmHg) O2 Sat by Pulse 97 Oximetry Oxygen Devices in Use Now: Nasal Cannula Appearance: Alert, supine in bed. In good spirits. Looks comfortable. Eyes: No Scleral Icterus Respiratory: Symmetrical Chest Expansion and Respiratory Effort, Clear to Percussion, - - very mild wheezing BL. 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 Continue prednisone taper. (3) Aortic stenosis Current Visit: No Status: Acute Priority: High Code(s): I35.0 - NONRHEUMATIC AORTIC (VALVE) STENOSIS SNOMED Code(s): 04345167 Comment: Cath WNL on 06/19/17 Dr Hahn following as outpatient (4) Afib Current Visit: No Status: Acute Priority: High Code(s): I48.91 - UNSPECIFIED ATRIAL FIBRILLATION SNOMED Code(s): 29516297 Comment: Continue DEMETRIUS Delcid. (5) Hypothyroidism Current Visit: No Status: Acute Code(s): E03.9 - HYPOTHYROIDISM, UNSPECIFIED SNOMED Code(s): 68439923 Comment: Continue levothyroxine. TSH wnl 06/25/17. (6) Diabetes Current Visit: No Status: Acute Priority: High Code(s): E11.9 - TYPE 2 DIABETES MELLITUS WITHOUT COMPLICATIONS SNOMED Code(s): 81380106 Comment: Blood sugars adequately controlled. continue sliding scale. Blood glucose will get lower as prednisone tapered. (7) Restless leg syndrome Current Visit: No Status: Acute Comment: continue Requip (8) Muscular deconditioning Current Visit: Yes Status: Acute Code(s): R29.898 - OTH SYMPTOMS AND SIGNS INVOLVING THE MUSCULOSKELETAL SYSTEM SNOMED Code(s): 976087556 Comment: Improved walking with PT on 06/28/17. Continue inpt PT. Status and Disposition: inpatient
[2017-06-28] MEDS: rOPINIRole TAB* 1 MG PO PRN (20:48)
[2017-06-28] MEDS: Clindamycin CAP* 150 MG PO SCH (20:50)
[2017-06-29] MEDS: oxyCODONE/Acetamin 5/325 MG* TAB PO PRN ×2 (02:47→06:14)
[2017-06-29] MEDS: rOPINIRole TAB* 1 MG PO PRN ×2 (06:14→14:10)
[2017-06-29] MEDS: Levothyroxine TAB* 125 MCG TAB PO SCH (06:14)
[2017-06-29] MEDS: Mometasone/Formoter 200/5 MDI INH SCH (07:05)
[2017-06-29] MEDS: Insulin LISPRO* 1 UNITS UNIT SUBCUT SCH ×2 (08:45→12:41)
[2017-06-29] MEDS: Senna TAB PO SCH (08:55)
[2017-06-29] MEDS: Apixaban* 5 MG TAB PO SCH (08:56)
[2017-06-29] MEDS: Metoprolol Succinate XL TAB* 25 MG PO SCH (08:56)
[2017-06-29] MEDS: Pramipexole TAB* 0.5 MG PO PRN (08:56)
[2017-06-29] MEDS: Clindamycin CAP* 150 MG PO SCH (08:56)
[2017-06-29] MEDS: Baclofen TAB* 10 MG PO SCH ×2 (08:56→14:11)
[2017-06-29] MEDS: Gabapentin CAP(*) 400 MG PO SCH ×2 (08:56→14:10)
[2017-06-29] MEDS: Docusate CAP* 100 MG PO SCH (08:56)
[2017-06-29] MEDS: PARoxetine HCL TAB* 10 MG PO SCH (08:56)
[2017-06-29] MEDS ORDERED: predniSONE TAB* 10 MG PO SCH (09:00)
--- NOTE | 2017-06-29 11:12 | DCNOTE ---
Subjective Date of Service: 06/29/17 Interval History: Feels better, anxious to go home. She did well with PT today. Chronic cough with occ yellow sputum, not unusual for her. Objective Active Medications: Acetaminophen (Tylenol Tab*) 650 mg PO Q4H PRN PRN Reason: FEVER/PAIN Al Hydrox/Mg Hydrox/Simethicone (Maalox Plus*) 30 ml PO Q6H PRN PRN Reason: INDIGESTION Albuterol (Ventolin Hfa Inhaler*) 2 puff INH Q4H PRN PRN Reason: SOB/WHEEZING Albuterol (Ventolin 2.5 Mg/3 Ml Neb.Marjorie*) 2.5 mg INH Q4H PRN PRN Reason: SOB/WHEEZING Last Admin: 06/28/17 23:13 Dose: 2.5 mg Apixaban (Eliquis*) 5 mg PO BID [facility] Last Admin: 06/29/17 08:56 Dose: 5 mg Baclofen (Lioresal Tab*) 10 mg PO TID [facility] Last Admin: 06/29/17 08:56 Dose: 10 mg Device (Nicotine Mouth Piece*) 1 each INH .USE WITH NICOTROL PRN PRN Reason: CRAVING Dextrose (D50w Syringe 50 Ml*) 12.5 gm IV PUSH .FOR FS < 60 - SS PRN PRN Reason: FS < 60 Docusate Sodium (Colace Cap*) 100 mg PO BID [facility] Last Admin: 06/29/17 08:56 Dose: 100 mg Doxycycline Hyclate (Vibramycin Cap(*)) 100 mg PO BID [facility] Gabapentin (Neurontin Cap(*)) 400 mg PO TID [facility] Last Admin: 06/29/17 08:56 Dose: 400 mg Insulin Human Lispro (Humalog*) 0 units SUBCUT ACHS [facility] PRN Reason: Protocol Last Admin: 06/29/17 08:45 Dose: Not Given Levothyroxine Sodium (Synthroid Tab*) 125 mcg PO 0600 [facility] Last Admin: 06/29/17 06:14 Dose: 125 mcg Metoprolol Succinate (Toprol Xl Tab*) 25 mg PO DAILY [facility] Last Admin: 06/29/17 08:56 Dose: 25 mg Mometasone Furoate/Formoterol Fumar (Dulera 200/5 Mdi*) 2 puff INH BID [facility] Last Admin: 06/29/17 07:05 Dose: 2 puff Nicotine (Nicotine Inhaler*) 10 mg INH Q2H PRN PRN Reason: CRAVING Nitroglycerin (Nitroglycerin Tab 0.4 Mg*) 0.4 mg SL Q5M PRN PRN Reason: PAIN - CHEST Last Admin: 06/26/17 21:31 Dose: 0.4 mg Ondansetron HCl (Zofran Inj*) 4 mg IV Q4H PRN PRN Reason: NAUSEA/VOMITING Oxycodone/Acetaminophen (Percocet 5/325 Tab*) 1 tab PO Q4H PRN PRN Reason: Pain Last Admin: 06/29/17 06:14 Dose: 1 tab Paroxetine HCl (Paxil Tab*) 10 mg PO DAILY [facility] Last Admin: 06/29/17 08:56 Dose: 10 mg Pramipexole Dihydrochloride (Mirapex Tab*) 0.5 mg PO TID PRN PRN Reason: LEG CRAMPS Last Admin: 06/29/17 08:56 Dose: 0.5 mg Prednisone (Deltasone Tab*) 30 mg PO DAILY [facility] Last Admin: 06/29/17 08:55 Dose: 30 mg Ropinirole HCl (Requip Tab*) 1 mg PO TID PRN PRN Reason: for restless leg syndrome Last Admin: 06/29/17 06:14 Dose: 1 mg Senna (Senokot Tab*) 1 tab PO BID [facility] Last Admin: 06/29/17 08:55 Dose: 1 tab Vital Signs - 8 hr 06/29/17 06/29/17 06/29/17 03:16 05:00 06:14 Temperature 97.6 F Pulse Rate 36 Respiratory 17 22 24 Rate Blood Pressure 184/67 (mmHg) O2 Sat by Pulse 99 Oximetry 06/29/17 06/29/17 06/29/17 07:39 08:00 08:46 Temperature 98.4 F Pulse Rate Respiratory 16 18 20 Rate Blood Pressure 135/55 (mmHg) O2 Sat by Pulse 97 Oximetry 06/29/17 06/29/17 08:55 08:56 Temperature Pulse Rate 72 Respiratory 20 Rate Blood Pressure (mmHg) O2 Sat by Pulse Oximetry Oxygen Devices in Use Now: Nasal Cannula Appearance: Alert, in a chair. In good spirits. Looks comfortable. Eyes: No Scleral Icterus Respiratory: Symmetrical Chest Expansion and Respiratory Effort, Clear to Auscultation, Clear to Percussion Cardiovascular: RRR, No Edema, - - 4/6 systolic murmur RSB. Bigeminal rhythm. 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 Rx doxycycline 100 mg bid x 7 days. She is on 4 L O2 at home. (2) COPD (chronic obstructive pulmonary disease) Current Visit: No Status: Acute Priority: High Code(s): J44.9 - CHRONIC OBSTRUCTIVE PULMONARY DISEASE, UNSPECIFIED SNOMED Code(s): 36454682 Comment: in exacerbation Improved. Continue prednisone taper. (3) Aortic stenosis Current Visit: No Status: Acute Priority: High Code(s): I35.0 - NONRHEUMATIC AORTIC (VALVE) STENOSIS SNOMED Code(s): 75834841 Comment: Cath WNL on 06/19/17 Dr Hahn following as outpatient (4) Afib Current Visit: No Status: Acute Priority: High Code(s): I48.91 - UNSPECIFIED ATRIAL FIBRILLATION SNOMED Code(s): 68756492 Comment: Continue DEMETRIUS Delcid. (5) Hypothyroidism Current Visit: No Status: Acute Code(s): E03.9 - HYPOTHYROIDISM, UNSPECIFIED SNOMED Code(s): 24415993 Comment: Continue levothyroxine. TSH wnl 06/25/17. (6) Diabetes Current Visit: No Status: Acute Priority: High Code(s): E11.9 - TYPE 2 DIABETES MELLITUS WITHOUT COMPLICATIONS SNOMED Code(s): 35992752 Comment: Resume home diabetes meds. Blood glucose will get lower as prednisone is tapered. (7) Restless leg syndrome Current Visit: No Status: Acute Comment: continue Requip (8) Muscular deconditioning Current Visit: Yes Status: Acute Code(s): R29.898 - OTH SYMPTOMS AND SIGNS INVOLVING THE MUSCULOSKELETAL SYSTEM SNOMED Code(s): 265217348 Comment: Improved walking with PT on 06/29/17. Status and Disposition: Discharge now. Fup Dr. Marrero.
[2017-06-29 11:15] VITALS: BP 142/56
--- NOTE | 2017-06-29 11:19 | PN ---
Progress Note - Progress Note Date of Service: 06/29/17 Note: Time spent on discharge 50 minutes.
[2017-06-29] MEDS ORDERED: DOXYcycline CAP(*) 100 MG PO SCH (12:00)
--- NOTE | 2017-06-29 15:50 | ED ---
Ant Mustafa Gabriel, scribed for Justin Holliday MD on 06/25/17 at 1425 . Back Pain - HPI Summary HPI Summary: This patient is a 71 year old F BIBA to [facility] with a chief complaint of lower back pain since 0300 this morning. The patient rates the pain 10/10 in severity. Patient reports LE weakness and LE pain. Patient denies LOC and incontinence. Patient states her legs wont work with her. Patient states she was seen at another ED last night but they would not prescribe her pain medication, they only gave her morphine for the visit. Hx of DDD and a prior CVA. - History of Current Complaint Chief Complaint: EDBackInjuryPain Stated Complaint: BACK PAIN Time Seen by Provider: 06/25/17 14:16 Hx Obtained From: Patient Onset/Duration: Lasting Hours - since 0300, Still Present Onset/Duration: Still Present Timing: Constant Back Pain Location: Is Diffuse Severity Initially: Severe Severity Currently: Severe Pain Intensity: 10 Pain Scale Used: 0-10 Numeric Associated Signs And Symptoms: Positive: Negative - LOC and incontinence, Other - LE weakness, LE pain - Allergies/Home Medications Allergies/Adverse Reactions: Allergies Allergy/AdvReac Type Severity Reaction Status Date / Time Aspirin Allergy Unknown Verified 06/16/17 06:59 Reaction Details Carbapenems Allergy Unknown Verified 06/16/17 06:59 Reaction Details Cephalosporins Allergy Unknown Verified 06/16/17 06:59 Reaction Details Ketorolac Tromethamine Allergy Unknown Verified 06/16/17 06:59 [From Toradol] Reaction Details Penicillins [PCN] Allergy Unknown Verified 06/16/17 06:59 Reaction Details Home Medications: Home Medications Acetaminophen [Acetaminophen Extra Stren] 500 mg PO BID PRN 06/25/17 [History Confirmed 06/25/17] Metoprolol Succinate XL TAB* [Toprol XL TAB*] 25 mg PO DAILY 06/25/17 [History Confirmed 06/25/17] Nitroglycerin TAB 0.4 MG* 0.4 mg SL Q5M PRN 06/25/17 [History Confirmed 06/25/17 ] Pramipexole TAB* [Mirapex TAB*] 0.5 mg PO TID PRN 06/25/17 [History Confirmed ] SitaGLIPtin (NF) [Januvia (NF)] 100 mg PO DAILY 06/25/17 [History Confirmed ] PMH/Surg Hx/FS Hx/Imm Hx Endocrine/Hematology History: Reports: Hx Anticoagulant Therapy, Hx Diabetes, Hx Thyroid Disease Denies: Hx Blood Transfusions Cardiovascular History: Reports: Hx Angina, Hx Congestive Heart Failure, Hx Hypercholesterolemia, Hx Hypertension, Hx Peripheral Vascular Disease, Other Cardiovascular Problems/Disorders - CHF Respiratory History: Reports: Hx Asthma, Hx Chronic Bronchitis, Hx Chronic Obstructive Pulmonary Disease (COPD) - PT ON HOME O2 4 L/MIN, Hx Pneumonia, Hx Pulmonary Edema, Hx Seasonal Allergies, Hx Sleep Apnea Denies: Hx Lung Cancer Musculoskeletal History: Reports: Hx Arthritis, Hx Back Problems, Hx Bursitis, Hx Orthopedic Injury, Hx Osteoporosis Denies: Hx Fibromyalgia Sensory History: Reports: Hx Contacts or Glasses, Hx Vision Problem Denies: Hx Hearing Aid Opthamlomology History: Reports: Hx Contacts or Glasses, Hx Vision Problem Neurological History: Reports: Hx CVA Denies: Hx Dementia, Hx Developmental Delay, Hx Headaches, Hx Migraine, Hx Seizures, Hx Spinal Cord Injury, Hx Transient Ischemic Attacks (TIA) Psychiatric History: Reports: Hx Anxiety - Cancer History Cancer Type, 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 Hx Chemotherapy: No Hx Radiation Therapy: Yes Hx Palliative Cancer Treatment: No - Surgical History Surgery Procedure, Year, and Place: cholecystectomy, carpal tunnel bilat hands, hysterectomy Hx Anesthesia Reactions: No Infectious Disease History: No Infectious Disease History: Denies: Traveled Outside the [place] in Last 30 Days - Family History Known Family History: Positive: Hypertension, Diabetes - Social History Alcohol Use: Occasionally Alcohol Amount: wine Hx Substance Use: No Substance Use Type: Reports: None Hx Tobacco Use: Yes Smoking Status (MU): Light Every Day Tobacco Smoker Type: Cigarettes Have You Smoked in the Last Year: Yes Review of Systems Negative: Fever, Chills Negative: Erythema Negative: Sore Throat Negative: Chest Pain Negative: Shortness Of Breath, Cough Negative: Abdominal Pain, Vomiting, Nausea Genitourinary: Negative - incontinence Negative: dysuria, hematuria Positive: Other - lower back pain and LE pain . Negative: Myalgia, Edema Negative: Rash Neurological: Negative - dizziness and LOC Positive: Weakness - in LE All Other Systems Reviewed And Are Negative: Yes Physical Exam - Summary Physical Exam Summary: Constitutional: Well-developed, Well-nourished, patient is writhing in pain but stops when I leave the room Skin: Warm, Dry HENT: Normocephalic; Atraumatic Eyes: Conjunctiva normal Neck: Musculoskeletal ROM normal neck. (-) JVD, (-) Stridor, (-) Tracheal deviation Cardio: Rhythm regular, rate normal, Heart sounds normal; Intact distal pulses; The pedal pulses are 2+ and symmetric. Radial pulses are 2+ and symmetric. (-) Murmur Pulmonary/Chest wall: Effort normal. (-) Respiratory distress, (-) Wheezes, (-) Rales Abd: Soft, (-) Tenderness, (-) Distension, (-) Guarding, (-) Rebound Musculoskeletal: (-) Edema, patient states there is a bilateral neurological deficit secondary to her stroke, that doesn't seem to be clinically likely Lymph: (-) Cervical adenopathy Neuro: Alert, Oriented x3 Psych: Mood and affect Normal Triage Information Reviewed: Yes Vital Signs On Initial Exam: Initial Vitals Temp Pulse Resp BP Pulse Ox 97.4 F 98 16 158/134 94 06/25/17 13:18 06/25/17 13:18 06/25/17 13:18 06/25/17 13:18 06/25/17 13:18 Vital Signs Reviewed: Yes - Reyna Coma Scale Coma Scale Total: 15 Diagnostics - Vital Signs Vital Signs Temp Pulse Resp BP Pulse Ox 06/25/17 13:34 93 91 06/25/17 13:33 133/110 06/25/17 13:18 97.4 F 98 16 158/134 94 - Laboratory Result Diagrams: 06/25/17 14:40 06/25/17 14:40 Lab Statement: Any lab studies that have been ordered have been reviewed, and results considered in the medical decision making process. - Radiology CXR Radiology Interpretation Completed By: Radiologist - CARDIOMEGALY WITH PULMONARY INTERSTITIAL EDEMA ED physician has reviewed this radiology report. - EKG 14:44 Cardiac Rate: NL EKG Rhythm: Sinus Rhythm - at 90 BPM EKG Interpretation: No STEMI Re-Evaluation - Re-Evaluation First Eval Re-Evaluation Time: 16:48 Change: Unchanged Comment: Patient reports three pillow orthopnea and SOB. There are rales in the bases. She was taken off diuretic due to dehydration last week. Back Pain Course/Dx - Course Assessment/Plan: This patient is a 71 year old F BIBA to [facility] with a chief complaint of lower back pain since 0300 this morning. The patient rates the pain 10/10 in severity. Patient reports LE weakness and LE pain. Patient denies LOC and incontinence. Patient states her legs wont work with her. Patient states she was seen at another ED last night but they would not prescribe her pain medication, they only gave her morphine for the visit. Hx of DDD and a prior CVA. CXR reveals, per radiologist, CARDIOMEGALY WITH PULMONARY INTERSTITIAL EDEMA. Reviewed the note from [facility] where they stated she is known for drug seeking behavior. She told EMS on her way to the hospital she ran out of pain medication a few days prior but once she arrived to the ED she told doctors she had been without them for over a month. She was discharged at 16:45 yesterday and they declined to give her IV pain medication. Test results with no significant abnormalities. In the ED course the patient was given Lasix, morphine, NTG, Zofran, and Tylenol. Patient will be admitted. The patient is agreeable with this plan. - Diagnoses Provider Diagnoses: Drug-seeking behavior, Opiate dependence, Pulmonary edema, CHF (congestive heart failure) - Provider Notifications Discussed Care Of Patient With: Mady Allen Time Discussed With Above Provider: 16:38 Instructed by Provider To: Admit As Inpatient Discharge - Discharge Plan Condition: Fair Disposition: ADMITTED TO [facility] Referrals: Lidia Marrero MD [Primary Care Provider] - The documentation as recorded by the Ant jolley Gabriel accurately reflects the service I personally performed and the decisions made by me, Justin Holliday MD.
--- NOTE | 2017-06-29 22:36 | DS ---
CC: Lidia Marrero MD DISCHARGE SUMMARY: DATE OF ADMISSION: 06/26/17 DATE OF DISCHARGE: 06/29/17 HISTORY: This 71-year-old woman presented after a fall. She had generalized weakness and uncontroll ed pain. There was some issue with her pain medications at home. She also has restless leg syndrome , which she said was uncontrolled. The patient was placed on Percocet 5/325 every 4 hours p.r.n. She was not given any narcotic prescri ptions on discharge. I will leave her pain management at home to her primary care physician. The calvin meza did well in the hospital with the medications here. Physical Therapy saw her. She did increas ingly well and was able to walk with a walker quite well. There was a question of aspiration pneumonia; however, in retrospect, I think the patient really is h aving an acute bronchitis with COPD exacerbation. She was given clindamycin. On discharge, I am giv ing her 7 days of doxycycline 100 mg b.i.d. She was wheezing slightly, but much less on the day of di beckarraquel. This is probably normal for her. She is on a tapering dose of prednisone. I note she is u sually on 4 L of oxygen at home. This will certainly be adequate for her. She will resume her usual diabetic medications at home as well. FINAL DIAGNOSES: 1. Narcotic withdrawal and restless leg syndrome. 2. Acute bronchitis and chronic obstructive pulmonary disease exacerbation. 3. Paroxysmal atrial fibrillation. 4. Diabetes. DISCHARGE MEDICATIONS: 1. Paroxetine 10 mg daily. 2. Prednisone 10 mg taper from 3 to 0 over 3 days. 3. Doxycycline 100 mg b.i.d. for 7 days. 4. Albuterol inhaler 2 puffs every 4 hours p.r.n. 5. Ropinirole 1 mg t.i.d. p.r.n. 6. Celecoxib 200 mg daily. 7. Baclofen 10 mg b.i.d. 8. Metformin 500 mg b.i.d. 9. Levothyroxine 125 mcg daily. 10. Apixaban 5 mg b.i.d. 11. Oxycodone/acetaminophen 10/325 as prescribed. 12. Budesonide/formoterol 160/4.5 two puffs b.i.d. 13. Multivitamin with mineral daily. 14. Gabapentin 400 mg t.i.d. 15. Nitroglycerin 0.4 mg sublingual every 5 minutes p.r.n. 16. Metoprolol succinate 25 mg daily. 17. Acetaminophen 500 mg b.i.d. p.r.n. 18. Pramipexole 0.5 mg t.i.d. p.r.n. 19. Sitagliptin 100 mg daily. [id number]/[facility] #: [id number]
== END 2017-06-29 15:00 | disposition home or self-care (01) | DRG 202 ==
LOC: ED 13:15 → MED 19:47 → OBSVTOIN 06-26 08:33
PROVIDERS: ADMIT Internal Medicine; ATTEND Internal Medicine
DX: J20.9 Acute bronchitis, unspecified (principal); J44.0 Chronic obstructive pulmonary disease with (acute) lower respiratory infection; E11.51 Type 2 diabetes mellitus with diabetic peripheral angiopathy without gangrene; E11.69 Type 2 diabetes mellitus with other specified complication; I48.0 Paroxysmal atrial fibrillation; M86.642 Other chronic osteomyelitis, left hand; I50.32 Chronic diastolic (congestive) heart failure; Z99.81 Dependence on supplemental oxygen; G25.81 Restless legs syndrome; F11.23 Opioid dependence with withdrawal; J44.1 Chronic obstructive pulmonary disease with (acute) exacerbation; F41.9 Anxiety disorder, unspecified; E03.9 Hypothyroidism, unspecified; J44.9 Chronic obstructive pulmonary disease, unspecified; I44.4 Left anterior fascicular block; G47.30 Sleep apnea, unspecified; G89.29 Other chronic pain; I35.0 Nonrheumatic aortic (valve) stenosis; M19.90 Unspecified osteoarthritis, unspecified site; M81.0 Age-related osteoporosis without current pathological fracture; E78.5 Hyperlipidemia, unspecified; F17.210 Nicotine dependence, cigarettes, uncomplicated; Z88.6 Allergy status to analgesic agent; Z88.1 Allergy status to other antibiotic agents; Z88.0 Allergy status to penicillin; Z88.8 Allergy status to other drugs, medicaments and biological substances; I25.2 Old myocardial infarction; Z86.73 Personal history of transient ischemic attack (TIA), and cerebral infarction without residual deficits; Z90.710 Acquired absence of both cervix and uterus; Z90.49 Acquired absence of other specified parts of digestive tract; Z85.42 Personal history of malignant neoplasm of other parts of uterus; Z82.49 Family history of ischemic heart disease and other diseases of the circulatory system; Z83.3 Family history of diabetes mellitus; Z72.89 Other problems related to lifestyle; Z79.84 Long term (current) use of oral hypoglycemic drugs; Z79.01 Long term (current) use of anticoagulants
CPT/HCPCS: 36415; 71045; 80048; 80053; 81003; 82550; 83605; 83735; 83880; 84443; 84484; 85025; 86140; 93005; 94640; 94760; 99283; A9270-GY; G0378; J1940; J2270; J2405; J2920; J3475; J7512

== ENCOUNTER 2017-07-26 13:06 | Observation (INO) | payer MEDICAID, MEDICARE, OTHER ==
[2017-07-26] MEDS ORDERED: Ondansetron INJ* 2 MG/ML VIAL IV ONE (13:59)
[2017-07-26] MEDS ORDERED: HYDROmorphone INJ* 1 MG/ML CARPUJECT SYRINGE IV ONE (13:59)
--- NOTE | 2017-07-26 14:06 | RAD ---
Indication: Confusion. CT of the brain was performed without IV contrast. Ventricular structures are midline. No midline shift is noted. Please note that the study is limited due to artifact. No obvious mass lesion is noted however. IMPRESSION: Limited study due to artifact. No obvious mass is noted although evaluation is severely limited.
[2017-07-26 14:11] LABS: ABS Basophils 0 10^3/ul (0-0.2); ABS Eosinophils 0.3 10^3/ul (0-0.6); ABS Lymphocytes 3.2 10^3/ul (1.0-4.8); ABS Monocytes 0.6 10^3/ul (0-0.8); ABS Neutrophils 3.8 10^3/ul (1.5-7.7); ABS Nucleated RBC 0 10^3/ul; Hematocrit 37 % (35-47); Hemoglobin 12.3 g/dl (12.0-16.0); Lymphocyte % 40.6 % (25-47); Mean Corpuscular HGB Conc 33 g/dl (31-36); Mean Corpuscular Hemoglobin 31 pg (27-31); Mean Corpuscular Volume 95 fL (80-97); Mean Platelet Volume 8 um3 (7.4-10.4); Nucleated Red Blood Cells % 0.1; Platelet Count 190 10^3/ul (150-450); Red Blood Count 3.91 10^6/ul (4.0-5.4); Red Cell Distribution Width 15 % (10.5-15); White Blood Count 7.9 10^3/ul (3.5-10.8)
[2017-07-26 14:18] LABS: INR 0.9 (0.77-1.02)
[2017-07-26 14:32] LABS: EGFR Non-African American 62.9 (>60)
[2017-07-26] MEDS ORDERED: Iodixanol* (CONTRAST) 320 MG/ML 100 ML SDV IV ONE (15:04)
--- NOTE | 2017-07-26 15:09 | RAD ---
HISTORY: Altered mental status COMPARISONS: June 25, 2017 VIEWS: 1: frontal portable view of the chest at 1:35 PM. The patient is obliqued to the left. FINDINGS: LINES AND TUBES: None. CARDIOMEDIASTINAL SILHOUETTE: The cardiac silhouette is enlarged. The cardiomediastinal silhouette is otherwise normal for portable technique. PLEURA: The costophrenic angles are sharp. No pleural abnormalities are noted. LUNG PARENCHYMA: The lungs are clear. ABDOMEN: The upper abdomen is clear. There is no subphrenic gas. BONES AND SOFT TISSUES: No bone or soft tissue abnormalities are noted. IMPRESSION: CARDIOMEGALY
[2017-07-26] MEDS ORDERED: Dextrose 50% Syringe 50 ML* 25 GM/50 ML SYRINGE IV PUSH PRN (15:33)
[2017-07-26] MEDS ORDERED: Cyclobenzaprine TAB* 10 MG PO PRN (15:33)
[2017-07-26] MEDS ORDERED: Morphine INJ* 2 MG/ML 1 ML CARPUJECT IV PRN (15:33)
[2017-07-26] MEDS ORDERED: Albuterol 2.5 MG/3 ML NEB.SOL* (0.083%) INH PRN (15:33)
[2017-07-26] MEDS ORDERED: Acetaminophen TAB* 325 MG PO PRN (15:33)
[2017-07-26] MEDS ORDERED: Ondansetron INJ* 2 MG/ML VIAL IV PRN (15:33)
[2017-07-26] MEDS ORDERED: rOPINIRole TAB* 1 MG PO PRN (15:37)
[2017-07-26] MEDS ORDERED: Pramipexole TAB* 0.5 MG PO PRN (15:42)
--- NOTE | 2017-07-26 16:16 | RAD ---
INDICATION: Right-sided numbness and weakness COMPARISON: CT brain same date TECHNIQUE: Axial source images were acquired with coronal and sagittal reconstructions. CT angiographic technique was utilized with injection of 80 mL Visipaque 320. This examination is limited due to motion artifact. FINDINGS: Aortic arch: There is an adequate evaluation of the great vessels arising from the arch due to motion artifact. Right carotid: The common carotid artery, carotid bifurcation, extracranial portions of the internal carotid artery, carotid artery at the skull base, carotid siphon, and carotid termination appear patent. There is moderate atherosclerotic change at the level of the carotid bifurcation as well as the carotid siphon. Left carotid:The common carotid artery, carotid bifurcation, extracranial portions of the internal carotid artery, carotid artery at the skull base, carotid siphon, and carotid termination appear patent. There is minor atherosclerotic change at the level of the carotid bifurcation as well as the carotid siphon.. Right middle and anterior cerebral arteries: There are no CT angiographic abnormalities of the middle or anterior cerebral arteries. Left middle and anterior cerebral arteries: There are no CT angiographic abnormalities of the middle or anterior cerebral arteries Right vertebral: The CT angiographic appearance of the vertebral artery is normal. Left vertebral: The CT angiographic appearance of the vertebral artery is normal. Basilar artery: The basilar artery and basilar tip appear normal. Posterior cerebral arteries: The distal distribution of the right and left posterior cerebral arteries is normal. [place]: There are no specific CT angiographic abnormalities of the [place]. The posterior communicating arteries are either absent or very diminutive. This can be a normal variant. Source images show no evidence of mass or adenopathy within the neck. Note is made of a very capacious left internal jugular vein. There are no focal brain parenchymal abnormalities or abnormal areas of enhancement. IMPRESSION: LIMITED EXAMINATION OF THE ARCH AND GREAT VESSELS ARISING FROM THE ARCH DUE TO MOTION ARTIFACT. THE REMAINDER THE EXAMINATION IS CONSIDERED DIAGNOSTIC. THERE ARE MINOR ATHEROSCLEROTIC CHANGES BUT THERE IS NO EVIDENCE OF ANEURYSM, SIGNIFICANT STENOSIS, BRANCH OCCLUSION. CPT II Codes: 3100F PQRS
--- NOTE | 2017-07-26 17:33 | RAD ---
INDICATION: Right-sided numbness and weakness COMPARISON: CT brain same date; CTA head and neck same date TECHNIQUE: sagittal T1 FLAIR, axial diffusion, axial T2 FLAIR images were acquired. The patient would not tolerate additional imaging. There is motion artifact on the submitted images FINDINGS: This is an incomplete examination. The patient was unable to cooperate for the examination. Diffusion weighted images show no convincing evidence of acute ischemia, however. No gross mass or midline shift is appreciated. Please refer also to CT report from same date. IMPRESSION: Incomplete study showing no convincing evidence of acute ischemia on the diffusion weighted images.
[2017-07-26] MEDS: Insulin LISPRO* 1 UNITS UNIT SUBCUT SCH (18:17)
[2017-07-26] MEDS: oxyCODONE/Acetamin 5/325 MG* TAB PO PRN (19:14)
[2017-07-26] MEDS: Lidocaine PATCH 5%* 1 PATCH TRANSDERM SCH (19:15)
[2017-07-26] MEDS: Baclofen TAB* 10 MG PO SCH ×2 (19:15→20:09)
[2017-07-26] MEDS: Mometasone/Formoter 200/5 MDI INH SCH (19:58)
[2017-07-26] MEDS: Apixaban* 5 MG TAB PO SCH (20:37)
[2017-07-26] MEDS: Gabapentin CAP(*) 400 MG PO SCH (20:37)
[2017-07-26] MEDS ORDERED: Lidocaine Patch REMOVE* 1 NOTE MISC SCH (21:00)
--- NOTE | 2017-07-26 21:15 | HP ---
CC: Dr. Marrero * HISTORY AND PHYSICAL: DATE OF ADMISSION: 07/26/17 PRIMARY CARE PROVIDER: Dr. Marrero. ATTENDING PHYSICIAN WHILE IN THE HOSPITAL: Omer Sawyer MD * (report dictated by Rex Graf NP). CHIEF COMPLAINT: Right-sided facial, arm, and leg numbness and right-sided weakness. HISTORY OF PRESENT ILLNESS: Ms. Regalado is a 71-year-old female patient. She has a history of arthritis, history of CHF, severe aortic stenosis, uterine cancer, AFib, COPD, hypertension, hyperlipidemia, history of CVA, hypothyroidism , diabetes, and a history of NH. She comes in today. Her biggest complaint is that she woke up around 7 this morning. She was having numbness on the right side of her body. She said it felt like pins and needles on the entire right side. She was having weakness to the right side as well. She said her speech seemed to be different than her baseline speech. She was concerned because she just was not feeling right. She says in addition to this, she has been having intermittent lower back pain which she has had for some time, which causes her to have numbness on the right side and pins and needles on the entire right side in the face, arm, and leg and everything becomes weak on the right side. She says that she does have issues with her legs and that they are jumping all over all the time. She denied having any chest pain recently, shortness of breath, fevers, or cough. She was concerned because of the numbness and it just was not getting any better. She was concerned and came into the ED today and there was concern for possible TIA. She says her symptoms are now resolving. She denied having any difficulty with word finding. No visual disturbances. She is right handed. Because of the numbness and tingling and weakness that did appear to get better, we were asked to evaluate for admission. PAST MEDICAL HISTORY: Significant for: 1. Arthritis. 2. History of CHF. 3. History of NH. 4. Diabetes. 5. Hypothyroidism. 6. CVA. 7. AFib. 8. COPD. 9. Uterine cancer. 10. Hypertension. 11. Hyperlipidemia. 12. Severe aortic stenosis. PAST SURGICAL HISTORY: 1. She has had hysterectomy. 2. She had a cardiac cath about a month ago which showed no obstructive coronary artery disease. 3. She had a history of cholecystectomy. 4. She has had carpal tunnel. MEDICATIONS: Home meds according to the list that she provided include: 1. Januvia 100 mg daily. 2. Mirapex 0.5 mg p.o. t.i.d. as needed. 3. Nitro 0.4 mg every 5 minutes under the tongue as needed x3. 4. Toprol-XL 25 mg daily. 5. Tylenol 500 mg p.o. twice a day as needed. 6. Percocet 1 tablet p.o. daily as needed. 7. Multivitamin 1 tablet daily. 8. Gabapentin 400 mg p.o. t.i.d. 9. Symbicort 2 puffs inhaled b.i.d. 10. Glucophage 500 mg p.o. b.i.d. 11. Synthroid 125 mcg daily. 12. Baclofen 10 mg p.o. t.i.d. 13. Apixaban 5 mg p.o. b.i.d. 14. Requip 1 mg p.o. t.i.d. as needed. 15. Celebrex 200 mg daily. 16. Albuterol 2 puffs inhaled every 4 hours as needed. 17. Paxil 10 mg daily. ALLERGIES: Include ASPIRIN, CARBAPENEM, CEPHALOSPORIN, TORADOL, and PENICILLIN. FAMILY HISTORY: Both her parents had heart failure. Her mother did have a heart attack. SOCIAL HISTORY: She is a pack a day smoker. She rarely drinks alcohol. Surrogate decision maker is her video player mechanic, Katia Hollins, according to the patient. REVIEW OF SYSTEMS: There is no documented fever. She denied having any significant weight change. There was no double vision. She denies having any ear discharge. There was no rhinorrhea. No sore throat. No thyroid enlargement. She denied having any chest pain. There was no orthopnea. She denies having any nocturnal dyspnea. There was no abdominal pain. There was no nausea, no vomiting. There was no dysuria. No frequency. No loss of consciousness. No pruritus and no skin ulcerations. Review of 14 systems completed, all others negative. PHYSICAL EXAMINATION GENERAL: At this time, Ms. Regalado is a 71-year-old female patient. She is morbidly obese. She is sitting in the ED stretcher. She does not appear to be in any acute distress. VITAL SIGNS: Blood pressure 152/85, pulse 76, respirations 19, O2 sat 97% on 3 L, and her temperature was 97.4. HEENT: Head: Atraumatic. Eyes: Sclerae anicteric, not pale. Throat: Oral mucosa appears to be moist. No oropharyngeal erythema. NECK: Supple. LUNGS: Clear to auscultation. No wheezes, rales, or rhonchi. HEART: Sounds S1, S2. She does have a grade 2 to 3 murmur in the aortic listening area. ABDOMEN: Soft, flat, nontender. Bowel sounds present. EXTREMITIES: Pulses are 2+ throughout. She has 5/5 strength in the upper extremities with flexion and extension. She did have 5/5 strength in the lower extremities. NEUROLOGIC: She is awake. She is oriented x3. She does have some limb ataxia to the right lower extremity and right upper extremity, particularly with finger -to- nose. She is able to do [id number], but when asked to hold the right leg out in front of her off the bed, she does have some limb ataxia noted. Sensation is intact. Her speech does appear to be at her baseline from when I admitted her last. There was no facial drooping noted. No other gross focal deficits. SKIN: Intact. She did have some abrasions noted to her right shoulder. DIAGNOSTIC STUDIES/LAB DATA: Her labs today WBC 7.9, RBC is 3.91, hemoglobin of 12.3, hematocrit 37, platelet count of 190,000. The INR was 0.9. The sodium was 137, potassium of 4.1, chloride of 109, bicarb of 23, BUN 23, creatinine of 0.89, glucose of 96, lactic 0.3, calcium 8.7. Total bili 0.2, AST 20, ALT 12, alk phos 68. Troponin 0. Albumin of 4. TSH of 1.12. The patient did have a brain CT obtained today which revealed limited study due to the artifact. No obvious mass is noted, although evaluation is severely limited. She did have a chest x-ray obtained today which revealed, impression: Cardiomegaly. She had an EKG obtained today, impression: Appears to be sinus rhythm with PAC , sinus bradycardia. No ST elevations or T-wave inversions. I did review to the previous EKG, it is similar with the exception that the rate was faster previously at 83. CTA is pending. Old medical records were reviewed. ASSESSMENT AND PLAN: Ms. Regalado is a 71-year-old female patient with multiple medical problems coming in to our ER today with complaints of right- sided numbness and tingling in addition to lower back pain. We were asked to evaluate for admission. She will be admitted under observation status for: 1. Concern for transient ischemic attack. Again, she does have some ataxia. Whenever I question that how much of this is related to her pain, she is fixated on having it when she gets pain. She is not having pain currently when she was treated in the ED. She does have significant risk factors for transient ischemic attack and the fact that she is normal on that one side is concerning. Dr. Sewell did evaluate the patient. She is unfortunately allergic to ASPIRIN. She is already on Eliquis. I will continue the Eliquis. We will get lipid panel in the morning. We will check an A1c. We will get neuro checks. Additionally, we will check an MRI and a CTA of the head and we will continue to follow. 2. Lower back pain, we presume with probably lumbar radiculopathy. At this point, she does note that she has issues with her disk. I did recommend PT. We will try to get her pain controlled. She has no neuro weakness or deficits. No signs of cauda equina and no trouble with bowel or bladder patterns, so we will try with pain control. I did order Lidoderm patch. In addition to this, I have ordered p.r.n. Flexeril as it sounds like she may be having spasms. 3. Arthritis. Continue meds as prescribed. 4. History of congestive heart failure. She appears to be euvolemic. We will continue current medical regimen. Diurese as needed. 5. History of myocardial infarction. She is on Eliquis. She cannot take ASPIRIN because she is allergic. We will continue her beta-juanito. We may consider adding a statin. We are checking her lipids tomorrow. 6. Diabetes. She will be on lispro sliding scale. 7. Hypothyroidism. We will continue her Synthroid. 8. History cerebrovascular accident. Continue secondary prevention. She is on Eliquis. She has a history of atrial fibrillation. 9. Atrial fibrillation. She appears to be in sinus rhythm. We will monitor. 10. Chronic obstructive pulmonary disease. I have ordered p.r.n. albuterol and will continue her Symbicort. 11. History of uterine cancer. Follow up with her primary. 12. Hypertension. I will continue her metoprolol XL. 13. Hyperlipidemia. Again, we will check lipid panel in the morning and then if needed, we will always add on a statin. 14. History of aortic stenosis. Follow with her primary. We will follow her blood pressure. We will try to make her hypotensive. 15. DVT prophylaxis. She is on Eliquis. 16. Code status. Full code. 17. Fluid, electrolytes, and nutrition. She can have a heart-healthy diet. TIME SPENT: Time spent on admission was 60 minutes, greater than half the time was spent [id number] with the patient obtaining my history and physical, other half of the time spent going over the plan of care with the patient and implementing plan of care. I did discuss the plan of care with my attending, Dr. Sawyer, he is in agreement. REX GRAF NP [id number]/[facility] #: [id number] MEMO
--- NOTE | 2017-07-26 21:35 | ED ---
Jesse Mustafa Jennifer, scribed for Linden Blackwell MD on 07/26/17 at 1323 . Neurological HPI - HPI Summary HPI Summary: The patient is a 71 year old female who woke up with pain and numbness at 07:00 today. She reports that she felt funny, couldnt move her right side or right leg, and her face felt strange. She has trouble speaking and additionally complains of pain in the lower back. She is able to move her right hand slightly. - History of Current Complaint Stated Complaint: STROKE LIKE SYMPTOMS Hx Obtained From: Patient Onset/Duration: Sudden Onset, Started hours ago - began at 07:00 this morning, Still Present Timing: Constant Onset Severity: Moderate Current Severity: Moderate Pain Scale Used: 0-10 Numeric Character: Other: - Feels funny, back pain, numbness in right side and right leg , impaired speech Aggravating: Nothing Alleviating: Position Change - onto left side Associated Signs and Symptoms: Positive: Pain, Impaired Speech, Numbness - Additional Pertinent History Primary Care Physician: JIMENEZ - Allergy/Home Medications Allergies/Adverse Reactions: Allergies Allergy/AdvReac Type Severity Reaction Status Date / Time aspirin Allergy Unknown Verified 07/26/17 14:12 Reaction Details Carbapenems Allergy Unknown Verified 07/26/17 14:12 Reaction Details Cephalosporins Allergy Unknown Verified 07/26/17 14:12 Reaction Details ketorolac Allergy Unknown Verified 07/26/17 14:12 Reaction Details Penicillins Allergy Unknown Verified 07/26/17 14:12 Reaction Details Home Medications: Home Medications Multivitamins/Minerals TAB* [Theragran/minerals TAB*] 1 tab PO DAILY 07/26/17 [ History Confirmed 07/26/17] PMH/Surg Hx/FS Hx/Imm Hx Endocrine/Hematology History: Reports: Hx Anticoagulant Therapy, Hx Diabetes, Hx Thyroid Disease Denies: Hx Blood Transfusions Cardiovascular History: Reports: Hx Angina, Hx Congestive Heart Failure, Hx Hypercholesterolemia, Hx Hypertension, Hx Peripheral Vascular Disease, Other Cardiovascular Problems/Disorders - CHF Respiratory History: Reports: Hx Asthma, Hx Chronic Bronchitis, Hx Chronic Obstructive Pulmonary Disease (COPD) - PT ON HOME O2 4 L/MIN, Hx Pneumonia, Hx Pulmonary Edema, Hx Seasonal Allergies, Hx Sleep Apnea Denies: Hx Lung Cancer Musculoskeletal History: Reports: Hx Arthritis, Hx Back Problems, Hx Bursitis, Hx Orthopedic Injury, Hx Osteoporosis Denies: Hx Fibromyalgia Sensory History: Reports: Hx Contacts or Glasses, Hx Vision Problem Denies: Hx Hearing Aid Opthamlomology History: Reports: Hx Contacts or Glasses, Hx Vision Problem Neurological History: Reports: Hx CVA Denies: Hx Dementia, Hx Developmental Delay, Hx Headaches, Hx Migraine, Hx Seizures, Hx Spinal Cord Injury, Hx Transient Ischemic Attacks (TIA) Psychiatric History: Reports: Hx Anxiety - Cancer History Cancer Type, 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 Hx Chemotherapy: No Hx Radiation Therapy: Yes Hx Palliative Cancer Treatment: No - Surgical History Surgery Procedure, Year, and Place: cholecystectomy, carpal tunnel bilat hands, hysterectomy Hx Anesthesia Reactions: No Infectious Disease History: Denies: Traveled Outside the [place] in Last 30 Days - Family History Known Family History: Positive: Hypertension, Diabetes - Social History Alcohol Use: Occasionally Alcohol Amount: wine Hx Substance Use: No Substance Use Type: Reports: None Hx Tobacco Use: Yes Smoking Status (MU): Light Every Day Tobacco Smoker Type: Cigarettes Have You Smoked in the Last Year: Yes Review of Systems Positive: Other - Face feels funny Positive: Other - Back pain Positive: Numbness, Slurred Speech All Other Systems Reviewed And Are Negative: Yes Physical Exam - Summary Physical Exam Summary: Appearance: The patient is well-nourished in no acute distress and in no acute pain. Skin: The skin is warm and dry and skin color reflects adequate perfusion. HEENT: ~The head is normocephalic and atraumatic. The pupils are equal and reactive. The conjunctivae are clear and without drainage. ~Nares are patent and without drainage. ~Mouth reveals moist mucous membranes and the throat is without erythema and exudate. ~The external ears are intact. The ear canals are patent and without drainage. The tympanic membranes are intact. Neck: the neck is supple with full range of motion and non-tender. There are no carotid bruits. ~There is no neck vein distension. Respiratory: Chest is non-tender. Expiratory wheezes in the left side. There are decreased breath sounds on the right. Cardiovascular: Heart is regular rate and rhythm. ~There is harsh systolic ejection murmur. ~There is no peripheral edema and pulses are symmetrical and equal. Abdomen: The abdomen is soft and non-tender. ~There are normal bowel sounds heard in all four quadrants and there is no organomegaly palpated. Musculoskeletal: There is no back tenderness noted. ~Extremities are non-tender with full range of motion. ~There is good capillary refill. ~There is no peripheral edema or calf tenderness elicited. Neurological: Patient is alert and oriented to person, place and time. ~The patient has symmetrical motor strength in all four extremities. ~Cranial nerves are grossly intact. Deep tendon reflexes are symmetrical and equal in all four extremities. Psychiatric: The patient has an appropriate affect and does not exhibit any anxiety or depression. Triage Information Reviewed: Yes Vital Signs On Initial Exam: Initial Vitals BP 157/80 07/26/17 13:12 Vital Signs Reviewed: Yes Diagnostics - Vital Signs Vital Signs Temp Pulse Resp BP Pulse Ox 07/26/17 15:13 69 19 162/119 96 07/26/17 15:00 75 20 160/128 93 07/26/17 14:06 12 07/26/17 14:00 76 19 97 07/26/17 13:30 73 24 162/85 98 07/26/17 13:17 97.4 F 78 22 157/80 97 07/26/17 13:13 85 96 07/26/17 13:12 157/80 - Laboratory Lab Results: Lab Results 07/26/17 07/26/17 07/26/17 Range/Units 13:25 13:59 13:59 WBC 7.9 (3.5-10.8) 10^3/ul RBC 3.91 L (4.0-5.4) 10^6/ul Hgb 12.3 (12.0-16.0) g/dl Hct 37 (35-47) % MCV 95 (80-97) fL MCH 31 (27-31) pg MCHC 33 (31-36) g/dl RDW 15 (10.5-15) % Plt Count 190 (150-450) 10^3/ul MPV 8 (7.4-10.4) um3 Neut % (Auto) 47.3 (38-83) % Lymph % (Auto) 40.6 (25-47) % [place] % (Auto) 7.5 (1-9) % Eos % (Auto) 4.0 (0-6) % Baso % (Auto) 0.6 (0-2) % Absolute Neuts (auto) 3.8 (1.5-7.7) 10^3/ul Absolute Lymphs (auto) 3.2 (1.0-4.8) 10^3/ul Absolute Monos (auto) 0.6 (0-0.8) 10^3/ul Absolute Eos (auto) 0.3 (0-0.6) 10^3/ul Absolute Basos (auto) 0 (0-0.2) 10^3/ul Absolute Nucleated RBC 0 10^3/ul Nucleated RBC % 0.1 INR (Anticoag Therapy) (0.77-1.02) Sodium 137 (133-145) mmol/L Potassium 4.1 (3.5-5.0) mmol/L Chloride 109 (101-111) mmol/L Carbon Dioxide 23 (22-32) mmol/L Anion Gap 5 (2-11) mmol/L BUN 23 (6-24) mg/dL Creatinine 0.89 (0.51-0.95) mg/dL Est GFR ( Amer) 80.9 (>60) Est GFR (Non-Af Amer) 62.9 (>60) BUN/Creatinine Ratio 25.8 H (8-20) Glucose 96 (70-100) mg/dL POC Glucose (mg/dL) 103 H (70-100) mg/dL Lactic Acid (0.5-2.0) mmol/L Calcium 8.7 (8.6-10.3) mg/dL Total Bilirubin 0.20 (0.2-1.0) mg/dL AST 20 (13-39) U/L ALT 12 (7-52) U/L Alkaline Phosphatase 68 (34-104) U/L Troponin I 0.00 (<0.04) ng/mL Total Protein 6.6 (6.4-8.9) g/dL Albumin 4.0 (3.2-5.2) g/dL Globulin 2.6 (2-4) g/dL Albumin/Globulin Ratio 1.5 (1-3) TSH 4.12 (0.34-5.60) mcIU/mL 07/26/17 07/26/17 Range/Units 13:59 13:59 WBC (3.5-10.8) 10^3/ul RBC (4.0-5.4) 10^6/ul Hgb (12.0-16.0) g/dl Hct (35-47) % MCV (80-97) fL MCH (27-31) pg MCHC (31-36) g/dl RDW (10.5-15) % Plt Count (150-450) 10^3/ul MPV (7.4-10.4) um3 Neut % (Auto) (38-83) % Lymph % (Auto) (25-47) % [place] % (Auto) (1-9) % Eos % (Auto) (0-6) % Baso % (Auto) (0-2) % Absolute Neuts (auto) (1.5-7.7) 10^3/ul Absolute Lymphs (auto) (1.0-4.8) 10^3/ul Absolute Monos (auto) (0-0.8) 10^3/ul Absolute Eos (auto) (0-0.6) 10^3/ul Absolute Basos (auto) (0-0.2) 10^3/ul Absolute Nucleated RBC 10^3/ul Nucleated RBC % INR (Anticoag Therapy) 0.90 (0.77-1.02) Sodium (133-145) mmol/L Potassium (3.5-5.0) mmol/L Chloride (101-111) mmol/L Carbon Dioxide (22-32) mmol/L Anion Gap (2-11) mmol/L BUN (6-24) mg/dL Creatinine (0.51-0.95) mg/dL Est GFR ( Amer) (>60) Est GFR (Non-Af Amer) (>60) BUN/Creatinine Ratio (8-20) Glucose (70-100) mg/dL POC Glucose (mg/dL) (70-100) mg/dL Lactic Acid 0.3 L (0.5-2.0) mmol/L Calcium (8.6-10.3) mg/dL Total Bilirubin (0.2-1.0) mg/dL AST (13-39) U/L ALT (7-52) U/L Alkaline Phosphatase (34-104) U/L Troponin I (<0.04) ng/mL Total Protein (6.4-8.9) g/dL Albumin (3.2-5.2) g/dL Globulin (2-4) g/dL Albumin/Globulin Ratio (1-3) TSH (0.34-5.60) mcIU/mL Result Diagrams: 07/26/17 13:59 07/26/17 13:59 Lab Statement: Any lab studies that have been ordered have been reviewed, and results considered in the medical decision making process. - Radiology CXR Xray Interpretation: Positive (See Comments) - CARDIOMEGALY. Dr. Blackwell has reviewed this report. Radiology Interpretation Completed By: Radiologist - CT CT Brain CT Interpretation: No Acute Changes - Limited study due to artifact. No obvious mass is noted although evaluation is severely limited. Dr. Blackwell has reviewed this report. CT Interpretation Completed By: Radiologist CTA Head/Neck CT Interpretation: No Acute Changes - LIMITED EXAMINATION OF THE ARCH AND GREAT VESSELS ARISING FROM THE ARCH DUE TO MOTION ARTIFACT. THE REMAINDER THE EXAMINATION IS CONSIDERED DIAGNOSTIC. THERE ARE MINOR ATHEROSCLEROTIC CHANGES BUT THERE IS NO EVIDENCE OF ANEURYSM, SIGNIFICANT STENOSIS, BRANCH OCCLUSION. CPT II Codes: 3100F PQRS. Dr Blackwell has reviewed this report. CT Interpretation Completed By: Radiologist - EKG 13:22 EKG Rhythm: Sinus Rhythm - 57 BPM Ectopy: PACs EKG Interpretation: Left axis left anterior fascicular block - Additional Comments Diagnostic Additional Comments: Brain MRI. Interpreted by a radiologist. IMPRESSION: Incomplete study showing no convincing evidence of acute ischemia on the diffusion weighted images. Dr. Blackwell has reviewed this report. Course/Dx - Course Course Of Treatment: Ms. Regalado presented as a CVA outside of the window for intervention. Her CT and labs were WNL. She was seen by Dr. Sewell who advised admission and further W/U. The hospitalist service is admitting her. - Diagnoses Provider Diagnoses: CVA (cerebral vascular accident) Discharge - Discharge Plan Condition: Fair Disposition: ADMITTED TO [facility] documentation as recorded by the Jesse jolley Jennifer accurately reflects the service I personally performed and the decisions made by , Linden Blackwell MD.
--- NOTE | 2017-07-27 00:10 | CONS ---
CONSULTATION REPORT: DATE OF CONSULT: 07/26/17 PRIMARY CARE PROVIDER: Dr. Marrero. REASON FOR CONSULT: Right-sided numbness and pain as well as some speech difficulties. HISTORY OF PRESENT ILLNESS: Ms. Regalado is a 71-year-old female with a very complicated past medical history including congestive heart failure, heart attacks in the past, diabetes, hypothyroidism, reported CVA in the past, atrial fibrillation, aortic stenosis, COPD, uterine cancer, hypertension, hyperlipidemia. She was recently admitted from 06/16/17 to 06/20/17; at that time, she was having chest pain. She tells me that they are planning to do surgery on her heart, but it is still in the planning stages. She presented at that time with intermittent chest pain, which had been waxing and waning. It did apparently radiate down her left arm and was squeezing in nature. Transthoracic echo done during that hospitalization, ejection fraction is 60% to 65%, moderate aortic regurg and severe aortic stenosis, mild mitral regurg, mild tricuspid regurg, pulmonary hypertension noted, no significant pericardial effusion, no significant changes to prior study from March 2017. She had a cardiac cath done, which showed no significant coronary artery disease. Troponins were normal. During that hospitalization, she was also noting some restless legs syndrome and she takes medication for that. She was discharged home in stable condition. She was subsequently readmitted on 06/25/17 with a fall and weakness as well as uncontrolled pain. She also was having some restless legs symptoms of kicking at the time. At that time, she stated that due to her pain and restless legs, she could not hold the weight on her legs and she fell. There was some concern that she may have aspirated when she vomited and there was some concern for aspiration pneumonia. She was treated with antibiotics. Her pain was treated with pain medication. Physical Therapy was asked to see her. She was discharged home on 06/29/17 and her pain management was subsequently left up to her primary care physician. It was thought on discharge that she might have had COPD exacerbation with bronchitis rather than aspiration pneumonia. She was given 7 days of doxycycline on discharge. This morning, she states that she woke up and at the time of waking , she had numbness and tingling in her right lower face, her right arm, and right leg. She insisted that when she has severe pain in her back and right leg , it causes numbness and tingling in her arm and leg, but she is unclear about the face. She states that she feels weaker on the right side and she feels that is because of the pain as well as. She has asked for pain medications multiple times, she has been given some Dilaudid in the ER with no real improvement in her pain. She told me that she felt if her pain was better controlled, her symptoms would be better. She does note some slurred speech as well which she says is new since this morning. She was last seen normal last night prior to bedtime. She continues to have restless leg-type symptoms. She notes no new vision changes, no hearing loss, no new problem swallowing. She does feel like it is hard for her to come up with words at times and that she slurs her words at times. She notes no new back pain but continues to have chronic low back pain radiating down the right leg. She has no left-sided numbness or tingling or paresthesias. The paresthesias in her arm and legs wax and wane in severity but are persistent in nature. She notes no falls. No nausea, vomiting. No recent fevers, chills. Since her discharge to home on , she has continued to have pain but until this morning was not having any new neurologic symptoms. PAST MEDICAL HISTORY: As noted above includes history of myocardial infarction x2; severe aortic stenosis; congestive heart failure; recent cardiac cath with no acute changes; type 2 diabetes; hypothyroidism; history of stroke in the past ; history of atrial fibrillation, on Eliquis; COPD; history of uterine cancer; hypertension; hyperlipidemia. PAST SURGICAL HISTORY: She has had carpal tunnel surgery, cholecystectomy, hysterectomy in the past. History of osteomyelitis in the left finger with possible planned amputation of the left index finger soon. She is also planning for aortic valve surgery given her severe stenosis. MEDICATIONS: At the time of her last discharge include: 1. Paroxetine 10 mg q. day. 2. Prednisone 10 mg taper from over 3 days. 3. Doxycycline 100 mg p.o. b.i.d. 4. Albuterol inhaler. 5. Ropinirole 1 mg t.i.d. p.r.n. 6. mg a day. 7. Baclofen 10 mg b.i.d. 8. Metformin 500 mg b.i.d. 9. Levothyroxine 125 mcg daily. 10. Apixaban 5 mg p.o. b.i.d. 11. Oxycodone/acetaminophen 10/325 p.r.n. 12. Budesonide/formoterol inhaler. 13. Multivitamin. 14. Gabapentin 400 mg t.i.d. 15. Nitroglycerin 0.4 mg sublingual q.5 minutes p.r.n. 16. Metoprolol 25 mg q. day. 17. Tylenol 500 mg p.o. b.i.d. 18. Pramipexole 0.5 mg t.i.d. p.r.n. 19. Sitagliptin 100 mg daily. ALLERGIES: To ASPIRIN, CARBAPENEM, CEPHALOSPORIN, KETOROLAC, PENICILLINS. FAMILY HISTORY: Significant for congestive heart disease and coronary artery disease. SOCIAL HISTORY: She smokes a pack a day for many years at least 40-pack year history. Denies any illicit substance use. She does drink approximately 2 times a year. Lives by herself. REVIEW OF SYSTEMS: In 14-organ systems as noted above, otherwise negative. PHYSICAL EXAM: Current vital signs: Temperature of 97.4, pulse rate of 78, respiratory rate of 22, pulse ox of 97%, blood pressure 157/80 to 162/85. General: She is a well-developed, obese female, lying in her hospital bed in some discomfort. HEENT: She is normocephalic, atraumatic. Sclerae anicteric. Mucous membranes are moist. She has poor dentition with no dentures in place. She has a large tongue. Neck is supple. No thyromegaly, no carotid bruits. Chest: Clear to auscultation bilaterally. Cardiovascular: Regular rate and rhythm with a 4/6 systolic ejection murmur. Abdomen is obese, nontender. Extremities: There is no cyanosis or clubbing noted in her lower extremities. She has some pitting edema 2+ to the shins in her lower extremities bilaterally with some chronic skin changes. On neurologic exam, she is awake, alert, oriented x3. Her speech is fluent. There is some mild dysarthria. Recall of recent or remote events is intact. Vocabulary is intact. Mood is dysthymic. Affect, mood congruent. Cranial nerves II through XII: Pupils are equal, round, and reactive to light. Extraocular muscles are intact. Visual nelson are full to confrontation. No nystagmus, no diplopia. Face is symmetric. Facial sensation intact with some paresthesias in the right lower face. Palate raises symmetrically. Tongue is midline. Sternocleidomastoid and trapezius 5/5. Her motor exam, she is spontaneously moving all extremities antigravity. She has very poor effort in the right side greater than the left side but poor effort throughout, she states secondary to pain. She is able to lift her left arm and leg against gravity and hold it there without drift. She has minimal effort on her right upper and lower extremity with give way as well as her pain. Difficult to fully assess but she does have resistance at times in the upper and lower extremity. DTRs were trace at the biceps, trace at the brachioradialis, triceps. 1+ at the patella bilaterally and absent at the ankles. Equivocal Babinski. Sensation, she states it is diminished to all modalities in the right arm and leg throughout. She notes 40% to 50% loss of sensation on the right compared to the left. She does have some chronic sensory loss to all modalities in the feet bilaterally. [id number] and rapid alternating movements were slower on the right than the left but present. There is no resting tremor or motion tremor. Tone is normal. Gait was not tested at this time. DIAGNOSTIC STUDIES/LAB DATA: Lab work includes a CBC with diff significant for RBC of 3.9, but otherwise normal. INR 0.90. Complete metabolic profile significant for BUN and creatinine ratio of 25.8, blood sugar 103, lactic acid 0.3. TSH of 4.12. Prior LDL cholesterol of 123 on 06/17/17. Troponin I of 0.00. Her last hemoglobin A1c on 06/17/17 at 5.9. Imaging: I did review her brain CT including the films, showed some motion artifact but no abnormalities on my review, agree with the findings. ASSESSMENT AND PLAN: Ms. Regalado is a 71-year-old female with multiple medical issues and multiple stroke risk factors, a prior history of stroke. In the distant past, history of paroxysmal atrial fibrillation, on Eliquis; history of severe aortic stenosis, presents to the hospital with what she described as waking up with face, arm, and leg numbness on the right, some weakness on the right, and some speech difficulties. She states that this typically happens when she is in lot of pain and she had been asking for pain medication, although she has had no improvement in her symptoms after she received Dilaudid. She continues to have severe back pain. At this point, given her complicated medical history, it is very difficult to say whether or not she may have sustained a stroke because she is asking for pain medication and because she states that the symptoms would be better if she could have medication. I am concerned that they may be cyogenic component with this. I will go ahead and get an MRI of the brain given the fact that her symptoms have lasted so long, I would expect to see stroke at this point on MRI, ADC mapping, and DWI mapping. No need to check another echocardiogram as she had one done last month. We will check CTA of the head and neck as well. I would continue her medications unchanged. Continue pain management as necessary. I will check a few additional labs including a B12 as her last B12 last year was low normal. I will check homocysteine for the restless leg concern. I will continue her current medications as they seem to be controlling the symptoms. For her back pain, continue the gabapentin and the pain medications, Baclofen and Celebrex. Diabetes controlled, hypertension controlled, per primary medicine team. I will follow up her testing and make further recommendations as necessary. Thank you for the opportunity to participate in the care of this very interesting patient. [id number]/[facility] #: [id number] MEMO
[2017-07-27 05:23] LABS: ABS Basophils 0 10^3/ul (0-0.2); ABS Eosinophils 0.2 10^3/ul (0-0.6); ABS Lymphocytes 2.2 10^3/ul (1.0-4.8); ABS Monocytes 0.5 10^3/ul (0-0.8); ABS Neutrophils 2.9 10^3/ul (1.5-7.7); ABS Nucleated RBC 0 10^3/ul; Eosinophil % 3.3 % (0-6); Hematocrit 37 % (35-47); Hemoglobin 12.2 g/dl (12.0-16.0); Lymphocyte % 38.3 % (25-47); Mean Corpuscular HGB Conc 33 g/dl (31-36); Mean Corpuscular Hemoglobin 32 pg (27-31); Mean Corpuscular Volume 96 fL (80-97); Mean Platelet Volume 8 um3 (7.4-10.4); Nucleated Red Blood Cells % 0; Platelet Count 165 10^3/ul (150-450); Red Cell Distribution Width 15 % (10.5-15); White Blood Count 5.9 10^3/ul (3.5-10.8)
[2017-07-27 05:25] LABS: INR 1.04 (0.77-1.02)
[2017-07-27 05:34] LABS: EGFR Non-African American 70.1 (>60)
[2017-07-27] MEDS ORDERED: Levothyroxine TAB* 125 MCG TAB PO SCH (06:00)
[2017-07-27] MEDS: Insulin LISPRO* 1 UNITS UNIT SUBCUT SCH ×3 (08:18→17:09)
[2017-07-27] MEDS: Mometasone/Formoter 200/5 MDI INH SCH (08:49)
[2017-07-27] MEDS ORDERED: PARoxetine HCL TAB* 10 MG PO SCH (09:00)
[2017-07-27] MEDS ORDERED: Metoprolol Succinate XL TAB* 25 MG PO SCH (09:00)
[2017-07-27] MEDS ORDERED: Multivitamins/Minerals TAB PO SCH (09:00)
[2017-07-27] MEDS: Gabapentin CAP(*) 400 MG PO SCH ×2 (09:27→13:45)
[2017-07-27] MEDS: Apixaban* 5 MG TAB PO SCH (09:27)
[2017-07-27] MEDS: Baclofen TAB* 10 MG PO SCH ×2 (09:28→13:44)
[2017-07-27] MEDS: oxyCODONE/Acetamin 5/325 MG* TAB PO PRN ×2 (09:28→13:45)
[2017-07-27] MEDS: Lidocaine PATCH 5%* 1 PATCH TRANSDERM SCH (09:28)
--- NOTE | 2017-07-27 14:15 | PN ---
Subjective Date of Service: 07/27/17 Interval History: Her right sided numbness and tingling/weakness has improved. Seemed to resolve as her back pain improved. She is having some pain in her left leg. Her roommate reports that she was choking at one point. Swallowing evaluation is pending. MRI: Films reviewed. No acute changes CTA: Films reviewed. No significant vascular disease Objective Active Medications: Acetaminophen (Tylenol Tab*) 650 mg PO Q4H PRN PRN Reason: FEVER/PAIN Albuterol (Ventolin 2.5 Mg/3 Ml Neb.Marjorie*) 2.5 mg INH Q2H PRN PRN Reason: SOB/WHEEZING Apixaban (Eliquis*) 5 mg PO BID [facility] Last Admin: 07/27/17 09:27 Dose: 5 mg Baclofen (Lioresal Tab*) 10 mg PO TID [facility] Last Admin: 07/27/17 13:44 Dose: 10 mg Cyclobenzaprine HCl (Flexeril Tab*) 10 mg PO TID PRN PRN Reason: SPASMS Last Admin: 07/26/17 15:55 Dose: 10 mg Dextrose (D50w Syringe 50 Ml*) 12.5 gm IV PUSH .FOR FS < 60 - SS PRN PRN Reason: FS < 60 Gabapentin (Neurontin Cap(*)) 400 mg PO TID [facility] Last Admin: 07/27/17 13:45 Dose: 400 mg Insulin Human Lispro (Humalog*) 0 units SUBCUT AC [facility] PRN Reason: Protocol Last Admin: 07/27/17 12:59 Dose: Not Given Levothyroxine Sodium (Synthroid Tab*) 125 mcg PO 0600 [facility] Last Admin: 07/27/17 05:21 Dose: 125 mcg Lidocaine (Lidoderm 5% Patch*) 1 patch TRANSDERM DAILY [facility] Last Admin: 07/27/17 09:28 Dose: 1 patch Metoprolol Succinate (Toprol Xl Tab*) 25 mg PO DAILY [facility] Last Admin: 07/27/17 09:27 Dose: 25 mg Mometasone Furoate/Formoterol Fumar (Dulera 200/5 Mdi*) 2 puff INH BID [facility] PRN Reason: Protocol Last Admin: 07/27/17 08:49 Dose: 2 puff Morphine Sulfate (Morphine Inj (Syringe)*) 2 mg IV Q4H PRN PRN Reason: PAIN - MILD Last Admin: 07/26/17 20:53 Dose: 2 mg Multivitamins/Minerals (Theragran/Minerals Tab*) 1 tab PO DAILY [facility] Last Admin: 07/27/17 09:28 Dose: 1 tab Ondansetron HCl (Zofran Inj*) 4 mg IV Q6H PRN PRN Reason: NAUSEA Oxycodone/Acetaminophen (Percocet 5/325 Tab*) 1 tab PO Q4H PRN PRN Reason: PAIN Last Admin: 07/27/17 13:45 Dose: 1 tab Paroxetine HCl (Paxil Tab*) 10 mg PO DAILY [facility] Last Admin: 07/27/17 09:28 Dose: 10 mg Pharmacy Profile Note (Lidocaine Patch Remove*) 1 note N/A 2100 [facility] Last Admin: 07/26/17 22:24 Dose: 1 note Pramipexole Dihydrochloride (Mirapex Tab*) 0.5 mg PO TID PRN PRN Reason: LEG CRAMPS Last Admin: 07/26/17 21:28 Dose: 0.5 mg Ropinirole HCl (Requip Tab*) 1 mg PO TID PRN PRN Reason: for restless leg syndrome Last Admin: 07/26/17 20:37 Dose: 1 mg Vital Signs 07/26/17 07/26/17 07/26/17 15:56 16:00 16:30 Temperature Pulse Rate 68 67 64 Respiratory 20 20 18 Rate Blood Pressure 139/58 (mmHg) O2 Sat by Pulse 96 98 96 Oximetry 07/26/17 07/26/17 07/26/17 17:28 17:33 17:57 Temperature 97.4 F 97.6 F Pulse Rate 65 67 Respiratory 18 22 22 Rate Blood Pressure 139/58 140/66 (mmHg) O2 Sat by Pulse 98 98 Oximetry 07/26/17 07/26/17 07/26/17 19:14 19:16 20:37 Temperature 97.9 F Pulse Rate 69 Respiratory 22 20 22 Rate Blood Pressure 129/57 (mmHg) O2 Sat by Pulse 99 Oximetry 07/26/17 07/26/17 07/26/17 20:53 20:56 21:41 Temperature Pulse Rate Respiratory 22 22 22 Rate Blood Pressure (mmHg) O2 Sat by Pulse Oximetry 07/26/17 07/26/17 07/27/17 22:17 23:57 00:00 Temperature 98.3 F Pulse Rate 63 Respiratory 20 20 Rate Blood Pressure 100/40 (mmHg) O2 Sat by Pulse 97 97 Oximetry 07/27/17 07/27/17 07/27/17 03:28 07:45 08:19 Temperature 98.2 F 98.3 F Pulse Rate 72 71 Respiratory 20 20 18 Rate Blood Pressure 115/52 131/52 (mmHg) O2 Sat by Pulse 95 94 Oximetry 07/27/17 07/27/17 07/27/17 09:27 09:28 11:52 Temperature Pulse Rate Respiratory 22 22 18 Rate Blood Pressure (mmHg) O2 Sat by Pulse Oximetry 07/27/17 13:45 Temperature Pulse Rate Respiratory 22 Rate Blood Pressure (mmHg) O2 Sat by Pulse Oximetry Oxygen Devices in Use Now: Nasal Cannula Neurology Exam: General: Awake, Alert, Oriented x3 HEENT: Normocephelic/atraumatic, sclera anicteric, mucous membranes moist Neck: Supple Chest: Clear to auscultation bilaterally Cardiovascular: Regular rate and rhythm without murmurs, rubs, gallops Abdomen: Soft, nontender/nondistended Extremities: No clubbing, cyanosis Neurological Findings: Awake, Alert, Oriented x3 Speech: fluent with some dysarthria, appears chronic Cranial Nerve: PEERL, EOM intact, VFF, no nystagmus, face symmetric bilaterally , facial sensation intact, hearing intact to finger rub bilaterally, palate elevates symmetrically, tongue midline Motor: Giveway weakness throughout secondary to pain. Symmetric Sensation: Parasthesias of the legs bilaterally, numbness has improved in the RUE/RLE. Diminished LT/PP in the feet bilaterally Deep Tendon Reflex: Trace BC, BR, Absent at patella, ankles, equivocal Babinski Finger to nose, rapid alternating movements intact without tremor, no dysdiadochokinesia Result Diagrams: 07/27/17 05:12 07/27/17 05:12 Additional Lab and Data: Lab Results 07/26/17 07/26/17 07/26/17 Range/Units 13:25 13:59 13:59 WBC 7.9 (3.5-10.8) 10^3/ul RBC 3.91 L (4.0-5.4) 10^6/ul Hgb 12.3 (12.0-16.0) g/dl Hct 37 (35-47) % MCV 95 (80-97) fL MCH 31 (27-31) pg MCHC 33 (31-36) g/dl RDW 15 (10.5-15) % Plt Count 190 (150-450) 10^3/ul MPV 8 (7.4-10.4) um3 Neut % (Auto) 47.3 (38-83) % Lymph % (Auto) 40.6 (25-47) % [place] % (Auto) 7.5 (1-9) % Eos % (Auto) 4.0 (0-6) % Baso % (Auto) 0.6 (0-2) % Absolute Neuts (auto) 3.8 (1.5-7.7) 10^3/ul Absolute Lymphs (auto) 3.2 (1.0-4.8) 10^3/ul Absolute Monos (auto) 0.6 (0-0.8) 10^3/ul Absolute Eos (auto) 0.3 (0-0.6) 10^3/ul Absolute Basos (auto) 0 (0-0.2) 10^3/ul Absolute Nucleated RBC 0 10^3/ul Nucleated RBC % 0.1 INR (Anticoag Therapy) (0.77-1.02) Sodium 137 (133-145) mmol/L Potassium 4.1 (3.5-5.0) mmol/L Chloride 109 (101-111) mmol/L Carbon Dioxide 23 (22-32) mmol/L Anion Gap 5 (2-11) mmol/L BUN 23 (6-24) mg/dL Creatinine 0.89 (0.51-0.95) mg/dL Est GFR ( Amer) 80.9 (>60) Est GFR (Non-Af Amer) 62.9 (>60) BUN/Creatinine Ratio 25.8 H (8-20) Glucose 96 (70-100) mg/dL POC Glucose (mg/dL) 103 H (70-100) mg/dL Lactic Acid (0.5-2.0) mmol/L Calcium 8.7 (8.6-10.3) mg/dL Total Bilirubin 0.20 (0.2-1.0) mg/dL AST 20 (13-39) U/L ALT 12 (7-52) U/L Alkaline Phosphatase 68 (34-104) U/L Troponin I 0.00 (<0.04) ng/mL Total Protein 6.6 (6.4-8.9) g/dL Albumin 4.0 (3.2-5.2) g/dL Globulin 2.6 (2-4) g/dL Albumin/Globulin Ratio 1.5 (1-3) TSH 4.12 (0.34-5.60) mcIU/mL 07/26/17 07/26/17 Range/Units 13:59 13:59 WBC (3.5-10.8) 10^3/ul RBC (4.0-5.4) 10^6/ul Hgb (12.0-16.0) g/dl Hct (35-47) % MCV (80-97) fL MCH (27-31) pg MCHC (31-36) g/dl RDW (10.5-15) % Plt Count (150-450) 10^3/ul MPV (7.4-10.4) um3 Neut % (Auto) (38-83) % Lymph % (Auto) (25-47) % [place] % (Auto) (1-9) % Eos % (Auto) (0-6) % Baso % (Auto) (0-2) % Absolute Neuts (auto) (1.5-7.7) 10^3/ul Absolute Lymphs (auto) (1.0-4.8) 10^3/ul Absolute Monos (auto) (0-0.8) 10^3/ul Absolute Eos (auto) (0-0.6) 10^3/ul Absolute Basos (auto) (0-0.2) 10^3/ul Absolute Nucleated RBC 10^3/ul Nucleated RBC % INR (Anticoag Therapy) 0.90 (0.77-1.02) Sodium (133-145) mmol/L Potassium (3.5-5.0) mmol/L Chloride (101-111) mmol/L Carbon Dioxide (22-32) mmol/L Anion Gap (2-11) mmol/L BUN (6-24) mg/dL Creatinine (0.51-0.95) mg/dL Est GFR ( Amer) (>60) Est GFR (Non-Af Amer) (>60) BUN/Creatinine Ratio (8-20) Glucose (70-100) mg/dL POC Glucose (mg/dL) (70-100) mg/dL Lactic Acid 0.3 L (0.5-2.0) mmol/L Calcium (8.6-10.3) mg/dL Total Bilirubin (0.2-1.0) mg/dL AST (13-39) U/L ALT (7-52) U/L Alkaline Phosphatase (34-104) U/L Troponin I (<0.04) ng/mL Total Protein (6.4-8.9) g/dL Albumin (3.2-5.2) g/dL Globulin (2-4) g/dL Albumin/Globulin Ratio (1-3) TSH (0.34-5.60) mcIU/mL Assessment/Plan 71 year old with a history of CAD, prior strokes, A.fib, severe aortic stenosis. Presented yesterday with reported right arm/leg weakness, numbness, tingling and some speech difficulties above her baseline. Her symptoms started with worsening back pain and once her back pain was controlled, the symptoms resolved. Reported choking on solids earlier today. --Continue secondary stroke risk factor reduction: On Eliquis, Statin, blood pressure control, DM control, advised to stop smoking. ASA allergic --Chronic pain: continue current pain medications. I plan to follow her up in clinic regarding her back, leg and RLS symptoms --RLS: continue current medications. Overall controlled, may adjust meds further at follow up --Swallowing study pending --Would benefit from outpatient PT/OT --Please arrange follow up with me in 1-2 months --Likely home later today. Will sign off for now. Neurology remains available for any additional issues or concerns.
--- NOTE | 2017-07-27 14:30 | PN ---
Subjective Date of Service: 07/27/17 Interval History: Patient seen and examined. Denies fever, chills, shortness of breath, chest discomfort, N/V/D. Denies pain at this time NSG staff noted that Pt has been removing her oxygen. Per NSG staff that she had an episode of chocking at lunch Tele: Sinus arrhythmia, rate 60-70's. Family History: Unchanged from Admission Social History: Unchanged from Admission Past Medical History: Unchanged from Admission Objective Active Medications: Acetaminophen (Tylenol Tab*) 650 mg PO Q4H PRN Reason: FEVER/PAIN Albuterol (Ventolin 2.5 Mg/3 Ml Neb.Marjorie*) 2.5 mg INH Q2H PRN Reason: SOB/ WHEEZING Apixaban (Eliquis*) 5 mg PO BID [facility] Baclofen (Lioresal Tab*) 10 mg PO TID [facility] Cyclobenzaprine HCl (Flexeril Tab*) 10 mg PO TID PRN Reason: SPASMS Dextrose (D50w Syringe 50 Ml*) 12.5 gm IV PUSH .FOR FS < 60 - SS PRN Reason: FS < 60 Gabapentin (Neurontin Cap(*)) 400 mg PO TID [facility] Insulin Human Lispro (Humalog*) 0 units SUBCUT AC [facility] Levothyroxine Sodium (Synthroid Tab*) 125 mcg PO 0600 [facility] Lidocaine (Lidoderm 5% Patch*) 1 patch TRANSDERM DAILY [facility] Metoprolol Succinate (Toprol Xl Tab*) 25 mg PO DAILY [facility] Mometasone Furoate/Formoterol Fumar (Dulera 200/5 Mdi*) 2 puff INH BID [facility] Morphine Sulfate (Morphine Inj (Syringe)*) 2 mg IV Q4H PRN Reason: PAIN - MILD Multivitamins/Minerals (Theragran/Minerals Tab*) 1 tab PO DAILY [facility] Ondansetron HCl (Zofran Inj*) 4 mg IV Q6H PRN Reason: NAUSEA Oxycodone/Acetaminophen (Percocet 5/325 Tab*) 1 tab PO Q4H PRN Reason: PAIN Paroxetine HCl (Paxil Tab*) 10 mg PO DAILY [facility] Pharmacy Profile Note (Lidocaine Patch Remove*) 1 note N/A 2100 [facility] Pramipexole Dihydrochloride (Mirapex Tab*) 0.5 mg PO TID PRN Reason: LEG CRAMPS Ropinirole HCl (Requip Tab*) 1 mg PO TID PRN Reason: for restless leg syndrome Vital Signs - 8 hr 07/27/17 07/27/17 07/27/17 07:45 08:19 09:27 Temperature 98.3 F Pulse Rate 71 Respiratory 20 18 22 Rate Blood Pressure 131/52 (mmHg) O2 Sat by Pulse 94 Oximetry 07/27/17 07/27/17 07/27/17 09:28 11:52 13:45 Temperature Pulse Rate Respiratory 22 18 22 Rate Blood Pressure (mmHg) O2 Sat by Pulse Oximetry Oxygen Devices in Use Now: Nasal Cannula - 3L Appearance: NAD, laying in bed Ears/Nose/Mouth/Throat: Mucous Membranes Moist, - - Macroglossia Respiratory: Symmetrical Chest Expansion and Respiratory Effort, Clear to Auscultation Cardiovascular: NL Sounds; No Murmurs; No JVD, RRR Abdominal: NL Sounds; No Tenderness; No Distention Extremities: No Edema Neurological: Alert and Oriented x 3, NL Muscle Strength and Tone Lines/Tubes/Other Access: Clean, Dry and Intact Peripheral IV - site benign Nutrition: Taking PO's Result Diagrams: 07/27/17 05:12 07/27/17 05:12 Additional Lab and Data: Assess/Plan/Problems-Billing Assessment: Ms. Regalado is a 71 year old female with a history of CAD, prior CVA, A.fib, smoker, CHF, DM, COPD, HTN, HLD, and severe aortic stenosis who presented yesterday with reported right arm/leg weakness, numbness, tingling and some speech difficulties above her baseline. - Patient Problems (1) Right arm weakness Code(s): R29.898 - OTH SYMPTOMS AND SIGNS INVOLVING THE MUSCULOSKELETAL SYSTEM SNOMED Code(s): 440144864 Comment: - Negative work-up - Presenting symptoms have resolved - Her symptoms started with worsening back pain and once her back pain was controlled, the symptoms resolved. - Reported choking on solids earlier today, swallow eval pending - Continue Eliquis, ASA allergic (2) Afib Code(s): I48.91 - UNSPECIFIED ATRIAL FIBRILLATION SNOMED Code(s): 60430061 Comment: - Sinus arrhythmia at this time, rate controlled - Continue Elquis and BB (3) Aortic stenosis Code(s): I35.0 - NONRHEUMATIC AORTIC (VALVE) STENOSIS SNOMED Code(s): 89092245 Comment: - Cath WNL on 06/19/17 - Dr Hahn following as outpatient (4) CHF (congestive heart failure) Code(s): I50.9 - HEART FAILURE, UNSPECIFIED SNOMED Code(s): 06517638 Comment: - No sings of exacerbation (5) COPD (chronic obstructive pulmonary disease) Code(s): J44.9 - CHRONIC OBSTRUCTIVE PULMONARY DISEASE, UNSPECIFIED SNOMED Code(s): 56341932 Comment: - No signs of exacerbation - Continue symbicort (6) Chronic back pain Code(s): M54.9 - DORSALGIA, UNSPECIFIED; G89.29 - OTHER CHRONIC PAIN SNOMED Code(s): 002004330 Comment: - Continue Tylenol PRN - It appears that Pt have been weaned off narcotics (7) Depression Code(s): F32.9 - MAJOR DEPRESSIVE DISORDER, SINGLE EPISODE, UNSPECIFIED SNOMED Code(s): 09823803 Comment: - Continue home medications (8) Diabetes Code(s): E11.9 - TYPE 2 DIABETES MELLITUS WITHOUT COMPLICATIONS SNOMED Code(s) : 42109127 Comment: - Glucose 67-103 - Resume home diabetes meds at discharge (9) HLD (hyperlipidemia) Code(s): E78.5 - HYPERLIPIDEMIA, UNSPECIFIED SNOMED Code(s): 29762211 Comment: - LDL 116, Cholesterol 209 - Start Atorvastatin (10) HTN (hypertension) Code(s): I10 - ESSENTIAL (PRIMARY) HYPERTENSION SNOMED Code(s): 66508016 Comment: - SBP 100-130's - Continue metoprolol (11) History of CVA (cerebrovascular accident) Code(s): Z86.73 - PRSNL HX OF TIA (TIA), AND CEREB INFRC W/O RESID DEFICITS SNOMED Code(s): 154216991 Comment: - Continue with secondary prevention (12) Hypothyroidism Code(s): E03.9 - HYPOTHYROIDISM, UNSPECIFIED SNOMED Code(s): 06005148 Comment: - TSH 4.12 - Continue levothyroxine (13) Restless leg syndrome Comment: - Continue Requip (14) DVT prophylaxis Code(s): NHN2552 - SNOMED Code(s): 734341144 Comment: - elquis (15) Full code status Code(s): Z78.9 - OTHER SPECIFIED HEALTH STATUS SNOMED Code(s): 792186563 Status and Disposition: OBV. Stable for discharge to home later today, if no concerns with swallowing after speech therapy eval.
[2017-07-27 16:30] VITALS: BP 136/56
[2017-07-27] MEDS ORDERED: Atorvastatin* 40 MG TAB PO SCH (17:00)
[2017-07-27] MEDS ORDERED: Atorvastatin* 80 MG TAB PO SCH (17:00)
--- NOTE | 2017-07-28 20:56 | DS ---
CC: Dr. Rafael Sewell; Dr. Lidia Marrero * DISCHARGE SUMMARY: DATE OF ADMISSION: 07/26/17 DATE OF DISCHARGE: 07/27/17 ATTENDING PHYSICIAN: Dr. Kallie Nguyen * (dictated by Miguelangel Buckner NP). PRIMARY CARE PROVIDER: Dr. Lidia Marrero. PRIMARY DIAGNOSES: 1. Right arm weakness, right-sided facial arm and leg numbness, resolved. 2. Chronic pain. 3. Hyperlipidemia. SECONDARY DIAGNOSES: 1. Arthritis. 2. Chronic pain. 3. Congestive heart failure. 4. Coronary artery disease, status post myocardial infarction. 5. Diabetes mellitus. 6. Hypothyroidism. 7. History of cerebrovascular accident. 8. Atrial fibrillation. 9. Chronic obstructive pulmonary disease. 10. History of uterine cancer. 11. Hypertension. 12. Severe aortic stenosis. CONSULTATIONS WHILE IN THE HOSPITAL: Dr. Rafael Sewell with Neurology. STUDIES WHILE IN THE HOSPITAL: 1. Brain CT on 07/26/17. Radiologist's impression: Limited study due to artifact. No obvious masses noted, although evaluation is severely limited. 2. Chest x-ray on 07/26/17. Radiologist's impression: Cardiomegaly. 3. Brain MRI on 07/26/17. Radiologist's impression: Incomplete study showing no convincing evidence of acute ischemia on the diffusion weighted images. 4. CTA of the head and neck on 07/26/17. Radiologist's impression: Limited examination of the arch and great vessels arising from the arch due to motion artifact. The remainder of the examination is considered diagnostic. There are minor atherosclerosis changes but there is no evidence of aneurysm, significant stenosis, or branch occlusion. DISCHARGE HOME MEDICATIONS: New home medications: 1. Atorvastatin 40 mg oral daily. Changed medications: 1. Baclofen 10 mg oral p.r.n. for back spasms. Continued home medications: 1. Albuterol HFA inhaler 2 puffs inhalation every 4 hours as needed for shortness of breath or wheeze. 2. Requip 1 mg oral 3 times daily as needed for restless legs syndrome. 3. Celebrex 200 mg oral daily. 4. Metformin 500 mg oral twice daily. 5. Levothyroxine 125 mcg oral every morning. 6. Eliquis 5 mg oral twice daily. 7. Percocet 10/325 one tablet oral daily as needed for pain, if the patient has tablets at home. 8. Symbicort 160 mg/4.5 two puffs inhalation and twice daily. 9. Gabapentin 400 mg oral 3 times daily. 10. Nitroglycerin 0.4 mg sublingual every 5 minutes as needed for chest pain. 11. Metoprolol succinate 25 mg oral daily. 12. Acetaminophen 500 mg oral every 4 hours as needed for pain. 13. Mirapex 0.5 mg oral 3 times daily as needed for leg cramps. 14. Januvia 100 mg oral daily. 15. Paxil 10 mg oral daily. 16. Multivitamin 1 tablet oral daily. HISTORY OF PRESENT ILLNESS/HOSPITAL COURSE: Ms. Regalado is a 71-year-old female with past medical history significant for arthritis, CHF, severe aortic stenosis, uterine cancer, atrial fibrillation, COPD, hypertension, hyperlipidemia, history of CVA, hypothyroidism, diabetes mellitus, and CAD with history of [place], who presented to the emergency room complaining of numbness in the right side of her body stating that it felt like pins and needles on her entire right side. She also reported right-sided weakness and felt as though her speech was different than her baseline speech, the patient was concerned with right-sided symptoms. Additionally, she was having intermittent low back pain for some time causing her to have numbness and weakness on the right side. She also reports problems with her legs "jumping all around." Due to her symptoms, she presented to the emergency room for further evaluation. While in the emergency room, the patient had a negative brain CT. Nathaly Chawla was called. She was seen in consultation by Dr. Sewell. She had labs without significant findings. Hospitalists were asked to evaluate the patient for admission. While in the hospital, the patient had fasting lipid showing an elevated LDL of 116, borderline high cholesterol. TSH was within normal limits. She had vitamin B12 level that was on the lower side of normal limits. She had an MRI that was poor quality due to motion artifact. She had a chest x-ray without significant findings. She had a CTA without signs of significant stenosis. She did not have a transthoracic echocardiogram and she just had an echocardiogram 06/16/17. At that time, there were no significant findings such as patent foramen ovale. Her EF was 60% to 65%. She had severe aortic stenosis. Mild mitral regurgitation, mild tricuspid regurgitation, mild pulmonary hypertension. No significant pleural effusion. The patient's symptoms resolved. She was receiving 1 Percocet as needed for pain. During her stay at lunch time, she had an episode of reported choking. According to her roommate, she had sounded like she was choking. The roommate called nursing staff. The patient reported having difficulty with her swallowing recently. Swallow eval was obtained. It was felt that due to the patient's poor dentition, she was likely having difficulty with swallowing. It was recommended that she be on ground diet. Due to patient's negative workup and resolution of symptoms, it was felt she was ready for discharge today. Ms. Regalado is stable for discharge to home today. Vital signs are as follows : Temperature 98.6, heart rate 56, respiratory rate 20, O2 sat 96% on 3 L via nasal cannula, blood pressure 136/56. DISCHARGE PLAN: Ms. Regalado is going to be discharged to home. Activity as tolerated. As far as her right-sided symptoms, the patient admitted presenting to the emergency room for pain medicine. I suspect her symptoms were secondary to her chronic pain. They have currently resolved. She was noted to have high LDL. She has been started on atorvastatin. For the patient's other symptoms, Dr. Sewell with Neurology is willing to follow her to assist with management of her chronic pain and restless legs syndrome. She has an appointment with Dr. Sewell on 08/21/17 at 9:30 a.m. She also has an appointment with her primary care provider, Dr. Marrero, on 08/08/17 at 11:40 a.m. She has also been set up with [facility] and she should have physical therapy at home. The patient has been asked to stop smoking. The patient has been asked to return to the emergency room for any chest pain, shortness of breath, or signs of stroke. The patient was I-STOP'd with reference number [id number]. POINT OF DISCUSSION AT FOLLOWUP: It is unclear why the patient was completely taken off her pain medication. I did not restart her on pain medication as she only received 3 Percocet during her stay and I suspect Tylenol will control her pain. Please discuss with the patient about pain medication at followup. Also discuss with the patient about stopping to smoke and please encourage her to continue taking her atorvastatin, as I am not sure if she chose not to continue taking the statin she was prescribed at her previous hospitalization or where that fell through. This is a summarized report of a complex medical history and hospital stay. For further details, please see the entire medical record. TIME SPENT: Time for this discharge was approximately 50 minutes, greater than half of that was spent with the patient discussing discharge plans and instructions. MIGUELANGEL BUCKNER, JARED [id number]/[facility] #: [id number] MEMO
== END 2017-07-27 18:51 | disposition home or self-care (01) ==
LOC: ED 13:06 → MEDTELE 15:30
PROVIDERS: ADMIT Internal Medicine; ATTEND Internal Medicine
DX: M62.81 Muscle weakness (generalized) (principal); R20.0 Anesthesia of skin; G89.29 Other chronic pain; E78.5 Hyperlipidemia, unspecified; M19.90 Unspecified osteoarthritis, unspecified site; I50.9 Heart failure, unspecified; I25.10 Atherosclerotic heart disease of native coronary artery without angina pectoris; I25.2 Old myocardial infarction; E11.9 Type 2 diabetes mellitus without complications; E03.9 Hypothyroidism, unspecified; Z86.73 Personal history of transient ischemic attack (TIA), and cerebral infarction without residual deficits; I48.91 Unspecified atrial fibrillation; J44.9 Chronic obstructive pulmonary disease, unspecified; Z85.42 Personal history of malignant neoplasm of other parts of uterus; I10 Essential (primary) hypertension; I35.0 Nonrheumatic aortic (valve) stenosis; Z90.710 Acquired absence of both cervix and uterus; Z90.49 Acquired absence of other specified parts of digestive tract; M54.5 Low back pain; Z79.01 Long term (current) use of anticoagulants; F17.210 Nicotine dependence, cigarettes, uncomplicated
CPT/HCPCS: 36415; 70450; 70496; 70498; 70551; 71045; 80048; 80053; 80061; 82607; 83036; 83090; 83605; 84443; 84484; 85025; 85610; 93005; 94640; 94760; 96374; 96375; 99284; A9270-GY; G0378; G8978-GP-CI; G8979-GP-CI; G8980-GP-CI; G8996-GN-CI; G8997-GN-CI; G8998-GN-CI; J1170; J2270; J2405; Q9967

== ENCOUNTER 2017-08-28 11:39 | Observation (INO) | payer OTHER ==
[2017-08-28] MEDS ORDERED: Pramipexole TAB* 0.5 MG PO PRN (12:39)
[2017-08-28] MEDS ORDERED: rOPINIRole TAB* 1 MG PO PRN (12:39)
[2017-08-28] MEDS ORDERED: Albuterol HFA INHALER* 8 gm MDI INH PRN (12:39)
[2017-08-28] MEDS ORDERED: oxyCODONE/Acetamin 10/325(NF) TAB PO PRN (12:39)
[2017-08-28] MEDS ORDERED: Acetaminophen TAB* 325 MG PO PRN (12:43)
[2017-08-28] MEDS ORDERED: hydrOXYzine HCL TAB* 10 MG PO PRN (12:43)
[2017-08-28] MEDS ORDERED: oxyCODONE TAB* 5 MG TAB PO PRN ×2 (12:57→13:14)
[2017-08-28] MEDS ORDERED: oxyCODONE/Acetamin 5/325 MG* TAB PO PRN (13:00)
[2017-08-28] MEDS ORDERED: Dextrose 50% Syringe 50 ML* 25 GM/50 ML SYRINGE IV PUSH PRN (13:10)
[2017-08-28 13:46] VITALS: BP 147/79
[2017-08-28] MEDS ORDERED: Gabapentin CAP(*) 400 MG PO SCH (14:00)
[2017-08-28] MEDS ORDERED: Insulin LISPRO* 1 UNITS UNIT SUBCUT SCH (16:30)
[2017-08-28 16:39] LABS: ABS Basophils 0 10^3/ul (0-0.2); ABS Eosinophils 0.2 10^3/ul (0-0.6); ABS Lymphocytes 2.7 10^3/ul (1.0-4.8); ABS Monocytes 0.6 10^3/ul (0-0.8); ABS Neutrophils 3.3 10^3/ul (1.5-7.7); ABS Nucleated RBC 0 10^3/ul; Hematocrit 37 % (35-47); Hemoglobin 12.6 g/dl (12.0-16.0); Mean Corpuscular HGB Conc 34 g/dl (31-36); Mean Corpuscular Hemoglobin 31 pg (27-31); Mean Corpuscular Volume 93 fL (80-97); Mean Platelet Volume 8 um3 (7.4-10.4); Nucleated Red Blood Cells % 0; Platelet Count 171 10^3/ul (150-450); Red Cell Distribution Width 14 % (10.5-15); White Blood Count 6.9 10^3/ul (3.5-10.8)
--- NOTE | 2017-08-28 16:45 | HP ---
CC: Jose Alfredo Hahn MD * HISTORY AND PHYSICAL: DATE OF ADMISSION: 08/28/17 TIME OF ADMISSION: 12:45 p.m. FRUIT GRADER OPERATOR: Jose Alfredo Hahn MD PRIMARY CARE PHYSICIAN: Dr. Lidia Marrero. CHIEF COMPLAINT: Syncope. 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 She has been followed by cardiology for sometime for worsening aortic stenosis and this morning she had a followup appointment where she reported an episode of syncope yesterday as well with some episode of syncope at the day prior associated with chest pain that has been going on for 1 week. She states the episode of syncope that occurred yesterday happened when she stood up from her chair and reached for her walker. She recalls nothing after that and she lives alone. The day prior to that she fell also shortly after standing up however is unable to describe the specifics of that episode of syncope, but she is confident that she has lost consciousness and is unsure for how long she is unconscious because she lives alone. She reports frequent falls due to tripping and weakness; however, she does not usually lose consciousness except for another episode that occurred several weeks ago, while she was walking around her house. She does have 5 steps in her house and she has been able to get up them over the past week with some difficulty. She has an aid Abida who helps her pay her bills , but does not otherwise assist her in the home and she performs all of her ADLs independently. She also complains of chest pain that has been going on constantly for the past week she has been taking nitroglycerin throughout the day, which initially helped a week ago, but over the past 2 days has given her no relief of the pain. The pain is in the middle of her chest. It does not radiate, it is constant and never goes away and feels like "the devil." She notes the 3 pound weight gain in the past week with some abdominal bloating and orthopnea. PAST MEDICAL HISTORY: COPD, AFib, depression, restless leg syndrome, hypothyroidism, hypertension, hyperlipidemia, diabetes, valvular heart failure, seizure disorder, chronic pain syndrome, GERD, peripheral vascular disease, gout. PAST SURGICAL HISTORY: Carpal tunnel release, cholecystectomy, hysterectomy. HOME MEDICATIONS: 1. Metoprolol 25 mg daily. 2. Levothyroxine 125 mcg daily. 3. Nitroglycerin 0.4 mg sublingual q. 5 up to 3 doses p.r.n. chest pain. 4. Pramipexole 0.5 mg t.i.d. p.r.n. leg spasm. 5. Ventolin HFA 2 puffs 4 times daily as needed. 6. Januvia 100 mg daily. 7. Gabapentin 400 mg t.i.d. 8. Glucophage 500 mg b.i.d. 9. Tylenol 650 mg q. 8 p.r.n. pain. 10. Advair 250/50 1 puff b.i.d. 11. Eliquis 5 mg b.i.d. 12. Multivitamin 1 tab daily. 13. Hydroxyzine 10 mg t.i.d. p.r.n. anxiety. 14. Paroxetine 10 mg daily. 15. Celebrex 200 mg daily. 16. Ropinirole 1 tab t.i.d. ALLERGIES: PENICILLIN, ASPIRIN, MORPHINE, CEPHALOSPORINS, CARBAPENEM, and BACTRIM. SOCIAL HISTORY: She lives alone in [place] in a three-bedroom house. She currently smokes 1 half packs per day. She says the closest person to her is her professor of social work Abida Gallegosrachele [phone]. She does have a daughter Myra who lives in [facility], but she has not been in touch with her. She also has a granddaughter Gina who she has been in touch with; however, she does not speak with anyone into her family recently and states that Abida is the closest person in her life and who we should call should she be unable to make decisions for herself. REVIEW OF SYSTEMS: She denies fevers, chills, cough and headache. She notes back pain, leg pain, chest pain, shortness of breath, dyspnea on exertion, orthopnea, weakness and syncope. PHYSICAL EXAMINATION GENERAL: Alert, anxious appearing female, who is unwell appearing and uncomfortable. VITAL SIGNS: Pending at admission. HEENT: Pupils equal, round, and reactive to light. No nystagmus. Oral mucosa without lesion. No pharyngeal exudates or erythema. NECK: JVP to 16 cm. No cervical lymphadenopathy. CHEST: Harsh systolic murmur, heard best at the right upper external border with radiation to the carotids. No S2 is heard. Her radial pulse is not delayed. She has expiratory wheezes and scattered rhonchi throughout. ABDOMEN: Her abdomen is soft, nontender and nondistended. Her liver is nonpalpable and spleen is nonpalpable. No guarding or rebound. EXTREMITIES: Trace lower extremity edema. No rashes or ulcers. NEUROLOGIC: Alert and oriented x3. Strength 5+ throughout. DIAGNOSTIC STUDIES/LAB DATA: Echocardiogram 06/18/17 showed normal LV function EF 60%, severe aortic stenosis with a mean gradient of 27 mmHg, mild MR and mild TR. Cardiac catheterization done on 06/19/17 showed normal coronary arteries with 30% PDA stenosis. ASSESSMENT AND PLAN: This 72-year-old female with history of severe aortic stenosis who presents of 1 week of chest pain and syncope for the past 2 days. 1. Syncope and chest pain in the setting of severe aortic stenosis. This is very concerning for worsening aortic stenosis and possibly critical aortic stenosis. She needs to be transferred to a center where cardiothoracic surgery is available. She has been accepted by Dr. White at [facility] and is awaiting transfer at this time. 2. For her pain. I suspect she has ongoing ischemia due to demand from some severe aortic stenosis. She should not have nitrates in the setting of severe critical aortic stenosis, so I am treating her with Percocet, which she has taken in the past with good relief for her back pain. I am checking lactate and LFTs to ensure she is not in low output heart failure and in need of inotropic support at this time, however, her exam does not suggest such at this time. I will continue with supportive care and avoid any additional demand on her cardiac function. 3. Atrial fibrillation. Her EKG at this time shows normal sinus rhythm. Continue metoprolol succinate, hold Eliquis in anticipation of upcoming surgery. 4. Diabetes. I am holding her Januvia and metformin and starting her on insulin sliding scale. 5. Restless leg syndrome. Continue pramipexole and ropinirole unclear why she is on both of these medications, however, I did confirm that she takes both at home, so I will continue them as prescribed by her PCP. 6. Anxiety. Continue hydroxyzine p.r.n. 7. Osteoarthritis. Hold the Celebrex, but continue Tylenol Arthritis. 8. Hypothyroidism. Continue levothyroxine. 9. DVT prophylaxis. Heparin subcutaneous. [id number]/[facility] #: [id number] [facility]
[2017-08-28 16:56] LABS: EGFR Non-African American 69.9 (>60)
[2017-08-28] MEDS ORDERED: Fluticasone-Salmeterol 250-50* DISKUS INH SCH (21:00)
[2017-08-29] MEDS ORDERED: Levothyroxine TAB* 125 MCG TAB PO SCH (06:00)
[2017-08-29] MEDS ORDERED: Metoprolol Succinate XL TAB* 25 MG PO SCH (09:00)
[2017-08-29] MEDS ORDERED: PARoxetine HCL TAB* 10 MG PO SCH (09:00)
[2017-08-29] MEDS ORDERED: Heparin VIAL(*) 5000 UNITS/ML VIAL (FIVE THOUSAND) SUBCUT SCH (14:00)
== END 2017-08-28 17:20 | disposition short-term general hospital (02) ==
LOC: MEDTELE 11:50
PROVIDERS: ADMIT Specialist; ATTEND Internal Medicine
DX: I35.0 Nonrheumatic aortic (valve) stenosis (principal); R55 Syncope and collapse; R07.9 Chest pain, unspecified; I48.91 Unspecified atrial fibrillation; Z79.01 Long term (current) use of anticoagulants; E11.9 Type 2 diabetes mellitus without complications; G25.81 Restless legs syndrome; F41.9 Anxiety disorder, unspecified; M19.90 Unspecified osteoarthritis, unspecified site; E03.9 Hypothyroidism, unspecified; J44.9 Chronic obstructive pulmonary disease, unspecified; I10 Essential (primary) hypertension; Z86.79 Personal history of other diseases of the circulatory system; Z88.0 Allergy status to penicillin; F40.240 Claustrophobia
CPT/HCPCS: 36415; 80053; 83605; 85025; 93005; A9270-GY; G0378

== ENCOUNTER 2017-09-29 22:18 | Emergency (ER) | payer MEDICARE, OTHER ==
[2017-09-29] MEDS ORDERED: LORazepam INJ* 2 MG/ML 1 ML VIAL IM ONE (22:51)
[2017-09-29] MEDS ORDERED: Albuterol/Ipratropium NEB.SOL* Albuterol 2.5 MG/Ipratropium 0.5 MG 3 ML INH ONE ×2 (22:52→22:55)
[2017-09-29 23:49] LABS: ABS Basophils 0.1 10^3/ul (0-0.2); ABS Eosinophils 0.3 10^3/ul (0-0.6); ABS Lymphocytes 2.1 10^3/ul (1.0-4.8); ABS Monocytes 0.8 10^3/ul (0-0.8); ABS Neutrophils 7.6 10^3/ul (1.5-7.7); ABS Nucleated RBC 0 10^3/ul; Eosinophil % 2.5 % (0-6); Hematocrit 44 % (35-47); Hemoglobin 14.4 g/dl (12.0-16.0); Lymphocyte % 19.7 % (25-47); Mean Corpuscular HGB Conc 33 g/dl (31-36); Mean Corpuscular Hemoglobin 31 pg (27-31); Mean Corpuscular Volume 94 fL (80-97); Mean Platelet Volume 8.4 um3 (7.4-10.4); Nucleated Red Blood Cells % 0; Platelet Count 257 10^3/ul (150-450); Red Blood Count 4.64 10^6/ul (4.0-5.4); Red Cell Distribution Width 15 % (10.5-15); White Blood Count 10.9 10^3/ul (3.5-10.8)
[2017-09-29 23:58] LABS: EGFR Non-African American 59.6 (>60)
[2017-09-30] MEDS ORDERED: Morphine VIAL* 4 MG/ML VIAL (1 ml vial) IV ONE ×2 (00:43→00:46)
--- NOTE | 2017-09-30 06:04 | ED ---
Gal Mustafa Jason, scribed for Katerin Barrera MD on 09/29/17 at 2244 . Lower Extremity - HPI Summary HPI Summary: This patient is a 72 year old F BIBA to [facility] with a chief complaint of severe bilateral leg pain since 2100 today. She states she has restless leg syndrome is currently in pain. She is not currently taking medication for the condition due to lack of insurance coverage. The patient rates the pain 10/10 in severity. Symptoms aggravated by nothing. Symptoms alleviated by nothing. She includes that she uses breathing treatments at home. - History of Current Complaint Chief Complaint: EDExtremityLower Stated Complaint: LEG PAIN Time Seen by Provider: 09/29/17 22:34 Hx Obtained From: Patient Mechanism Of Injury: Other - restless leg syndrome Onset of Pain: Prior to Arrival Onset/Duration: Still Present Severity Currently: Severe Pain Intensity: 10 Pain Scale Used: 0-10 Numeric Timing: Constant Character Of Pain: Unable To Describe Associated Signs And Symptoms: Positive: Other - bilateral frontal leg pain Aggravating Factor(s): Nothing Alleviating Factor(s): Nothing - Allergies/Home Medications Allergies/Adverse Reactions: Allergies Allergy/AdvReac Type Severity Reaction Status Date / Time aspirin Allergy Unknown Verified 07/26/17 14:12 Reaction Details Carbapenems Allergy Unknown Verified 07/26/17 14:12 Reaction Details Cephalosporins Allergy Unknown Verified 07/26/17 14:12 Reaction Details ketorolac Allergy Unknown Verified 07/26/17 14:12 Reaction Details Penicillins Allergy Unknown Verified 07/26/17 14:12 Reaction Details Home Medications: Home Medications LevoCETirizine TAB (NF) [Xyzal TAB (NF)] 5 mg PO DAILY PRN 09/30/17 [History Confirmed 09/30/17] Loratadine [Loratadine] 1 tab PO DAILY 09/30/17 [History Confirmed 09/30/17] diazePAM [Diazepam] 1 tab PO TID PRN 09/30/17 [History Confirmed 09/30/17] PMH/Surg Hx/FS Hx/Imm Hx Previously Healthy: No Endocrine/Hematology History: Reports: Hx Anticoagulant Therapy, Hx Diabetes, Hx Thyroid Disease Denies: Hx Blood Transfusions Cardiovascular History: Reports: Hx Angina, Hx Congestive Heart Failure, Hx Hypercholesterolemia, Hx Hypertension, Hx Peripheral Vascular Disease, Hx Syncope, Other Cardiovascular Problems/Disorders - CHF Denies: Hx Pacemaker/ICD Respiratory History: Reports: Hx Asthma, Hx Chronic Bronchitis, Hx Chronic Obstructive Pulmonary Disease (COPD) - PT ON HOME O2 4 L/MIN, Hx Pneumonia, Hx Pulmonary Edema, Hx Seasonal Allergies, Hx Sleep Apnea Denies: Hx Lung Cancer GI History: Reports: Hx Gastroesophageal Reflux Disease Musculoskeletal History: Reports: Hx Arthritis, Hx Back Problems, Hx Bursitis, Hx Orthopedic Injury, Hx Osteoporosis Denies: Hx Fibromyalgia Sensory History: Reports: Hx Contacts or Glasses, Hx Vision Problem, Hx Hearing Problem - [place] Denies: Hx Hearing Aid Opthamlomology History: Reports: Hx Contacts or Glasses, Hx Vision Problem Neurological History: Reports: Hx CVA Denies: Hx Dementia, Hx Developmental Delay, Hx Headaches, Hx Migraine, Hx Seizures, Hx Spinal Cord Injury, Hx Transient Ischemic Attacks (TIA) Psychiatric History: Reports: Hx Anxiety, Hx Depression Denies: Hx Panic Disorder - Cancer History Cancer Type, 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 Hx Chemotherapy: No Hx Radiation Therapy: Yes Hx Palliative Cancer Treatment: No - Surgical History Surgery Procedure, Year, and Place: cholecystectomy, carpal tunnel bilat hands, hysterectomy Hx Anesthesia Reactions: No Infectious Disease History: No Infectious Disease History: Reports: Hx of Known/Suspected MRSA Denies: Traveled Outside the [place] in Last 30 Days - Family History Known Family History: Positive: Hypertension, Diabetes - Social History Alcohol Use: Occasionally Alcohol Amount: wine Hx Substance Use: No Substance Use Type: Reports: None Hx Tobacco Use: Yes Smoking Status (MU): Light Every Day Tobacco Smoker Type: Cigarettes Have You Smoked in the Last Year: Yes Review of Systems Negative: Fever Positive: Other - bilateral leg pain All Other Systems Reviewed And Are Negative: Yes Physical Exam - Summary Physical Exam Summary: GENERAL: Patient is a well-developed and nourished Female who is lying comfortable in the stretcher. Patient is not in any acute respiratory distress. Patient appears uncomfortable secondary to pain HEAD AND FACE: Normocephalic EYES: PERRLA, EOMI x 2. EARS: Hearing grossly intact. MOUTH: Oropharynx within normal limits. NECK: Supple, trachea is midline, no adenopathy, no JVD, no carotid bruit. CHEST: Symmetric, no tenderness at palpation LUNGS: Clear to auscultation bilaterally. Bilateral wheezing. CVS: Regular rate and rhythm, S1 and S2 present, no murmurs or gallops appreciated. ABDOMEN: Soft, non-tender. Bowel sounds are normal. No abdominal abnormal pulsations. EXTREMITIES: Full ROM in all major joints, no edema, no cyanosis or clubbing. Not tender in the calf area. NEURO: Alert and oriented x 3. No acute neurological deficits. Speech is normal and follows commands. SKIN: Dry and warm Triage Information Reviewed: Yes Vital Signs On Initial Exam: Initial Vitals Temp Pulse Resp BP Pulse Ox 97.6 F 87 24 135/86 95 09/29/17 22:25 09/29/17 22:25 09/29/17 22:25 09/29/17 22:25 09/29/17 22:25 Vital Signs Reviewed: Yes Diagnostics - Vital Signs Vital Signs Temp Pulse Resp BP Pulse Ox 09/29/17 22:26 86 135/86 94 09/29/17 22:25 97.6 F 86 24 135/86 92 - Laboratory Lab Results: Lab Results 09/29/17 09/29/17 Range/Units 22:40 22:40 WBC 10.9 H (3.5-10.8) 10^3/ul RBC 4.64 (4.0-5.4) 10^6/ul Hgb 14.4 (12.0-16.0) g/dl Hct 44 (35-47) % MCV 94 (80-97) fL MCH 31 (27-31) pg MCHC 33 (31-36) g/dl RDW 15 (10.5-15) % Plt Count 257 (150-450) 10^3/ul MPV 8.4 (7.4-10.4) um3 Neut % (Auto) 70.1 (38-83) % Lymph % (Auto) 19.7 L (25-47) % Starr % (Auto) 7.1 H (0-7) % Eos % (Auto) 2.5 (0-6) % Baso % (Auto) 0.6 (0-2) % Absolute Neuts (auto) 7.6 (1.5-7.7) 10^3/ul Absolute Lymphs (auto) 2.1 (1.0-4.8) 10^3/ul Absolute Monos (auto) 0.8 (0-0.8) 10^3/ul Absolute Eos (auto) 0.3 (0-0.6) 10^3/ul Absolute Basos (auto) 0.1 (0-0.2) 10^3/ul Absolute Nucleated RBC 0 10^3/ul Nucleated RBC % 0 Sodium 141 (139-145) mmol/L Potassium 4.8 (3.5-5.0) mmol/L Chloride 110 (101-111) mmol/L Carbon Dioxide 20 L (22-32) mmol/L Anion Gap 11 (2-11) mmol/L BUN 18 (6-24) mg/dL Creatinine 0.93 (0.51-0.95) mg/dL Est GFR ( Amer) 76.7 (>60) Est GFR (Non-Af Amer) 59.6 (>60) BUN/Creatinine Ratio 19.4 (8-20) Glucose 151 H (70-100) mg/dL Calcium 9.9 (8.6-10.3) mg/dL Total Bilirubin 0.50 (0.2-1.0) mg/dL AST 24 (13-39) U/L ALT 11 (7-52) U/L Alkaline Phosphatase 80 (34-104) U/L Total Protein 7.6 (6.4-8.9) g/dL Albumin 4.5 (3.2-5.2) g/dL Globulin 3.1 (2-4) g/dL Albumin/Globulin Ratio 1.5 (1-3) Result Diagrams: 09/29/17 22:40 09/29/17 22:40 Lab Statement: Any lab studies that have been ordered have been reviewed, and results considered in the medical decision making process. Lower Extremity Course/Dx - Course Course Of Treatment: Patient given Morphine IM and Ativan with much improvement. Patient HD stable for dc. Assessment/Plan: Patient's condition has improved and she will be discharged and follow up with PCP in 3 days. Patient is agreeable with this plan. - Diagnoses Provider Diagnoses: Chronic pain of lower extremity, bilateral Discharge - Sign-Out/Discharge Documenting (check all that apply): Discharge - Discharge Plan Condition: Stable Disposition: HOME Patient Education Materials: Restless Legs Syndrome (ED), Leg Pain (ED) Referrals: Janes GAMING,Lidia Abraham [Primary Care Provider] - 3 Days Additional Instructions: RETURN TO THE EMERGENCY DEPARTMENT FOR CHANGING OR WORSENING SYMPTOMS. - Billing Disposition and Condition Condition: STABLE Disposition: HOME The documentation as recorded by the Gal jolley Jason accurately reflects the service I personally performed and the decisions made by me, Katerin Barrera MD.
[2017-09-30 07:04] VITALS: BP 154/88
== END 2017-09-30 06:30 | disposition home or self-care (01) ==
LOC: ED 22:18
DX: G89.29 Other chronic pain (principal); M79.605 Pain in left leg; M79.604 Pain in right leg
CPT/HCPCS: 36415; 80053; 85025; 94640; 96372; 96374; 99284; A9270-GY; J2060; J2270

== ENCOUNTER 2017-10-12 15:43 | Emergency (ER) | payer MEDICARE ==
[2017-10-12] MEDS ORDERED: oxyCODONE/Acetamin 5/325 MG* TAB PO ONE (16:51)
[2017-10-12] MEDS ORDERED: rOPINIRole TAB* 1 MG PO ONE ×2 (18:18→19:12)
[2017-10-12] MEDS ORDERED: Gabapentin CAP(*) 400 MG PO ONE ×2 (18:18→19:12)
--- NOTE | 2017-10-12 19:12 | ED ---
Seng Mustafa Stephanie, scribed for Linden Blackwell MD on 10/12/17 at 1645 . Back Pain - HPI Summary HPI Summary: The pt is a 72 y/o F BIBA to the ED with c/o lower back pain. The pt fell at [facility] due to numbness in feet that resulted from a past stroke. She denies LOC. Pt states she likes in [facility] and does not want to go back. Her pain is rated as an 8 in severity. The pt reports she takes 4 aspirin tablets any time she has a bout of pain. She reports her doctor will not prescribe her pain medication. She denies addiction to pain medications. - History of Current Complaint Chief Complaint: EDExtremityLower Stated Complaint: LEG AND BACK PAIN Time Seen by Provider: 10/12/17 16:06 Hx Obtained From: Patient Onset/Duration: Gradual Onset, Still Present, Other - chronic Onset/Duration: Still Present Timing: Constant Back Pain Location: Is Discrete @ - lower back Severity Currently: Severe Pain Intensity: 7 Pain Scale Used: 0-10 Numeric Aggravating Symptom(s): Movement Alleviating Symptom(s): Nothing - Allergies/Home Medications Allergies/Adverse Reactions: Allergies Allergy/AdvReac Type Severity Reaction Status Date / Time aspirin Allergy Unknown Verified 07/26/17 14:12 Reaction Details Carbapenems Allergy Unknown Verified 07/26/17 14:12 Reaction Details Cephalosporins Allergy Unknown Verified 07/26/17 14:12 Reaction Details ketorolac Allergy Unknown Verified 07/26/17 14:12 Reaction Details Penicillins Allergy Unknown Verified 07/26/17 14:12 Reaction Details PMH/Surg Hx/FS Hx/Imm Hx Endocrine/Hematology History: Reports: Hx Anticoagulant Therapy, Hx Diabetes, Hx Thyroid Disease Denies: Hx Blood Transfusions Cardiovascular History: Reports: Hx Angina, Hx Congestive Heart Failure, Hx Hypercholesterolemia, Hx Hypertension, Hx Peripheral Vascular Disease, Hx Syncope, Other Cardiovascular Problems/Disorders - CHF Denies: Hx Pacemaker/ICD Respiratory History: Reports: Hx Asthma, Hx Chronic Bronchitis, Hx Chronic Obstructive Pulmonary Disease (COPD) - PT ON HOME O2 4 L/MIN, Hx Pneumonia, Hx Pulmonary Edema, Hx Seasonal Allergies, Hx Sleep Apnea Denies: Hx Lung Cancer GI History: Reports: Hx Gastroesophageal Reflux Disease Musculoskeletal History: Reports: Hx Arthritis, Hx Back Problems, Hx Bursitis, Hx Orthopedic Injury, Hx Osteoporosis Denies: Hx Fibromyalgia Sensory History: Reports: Hx Contacts or Glasses, Hx Vision Problem, Hx Hearing Problem - [place] Denies: Hx Hearing Aid Opthamlomology History: Reports: Hx Contacts or Glasses, Hx Vision Problem Neurological History: Reports: Hx CVA Denies: Hx Dementia, Hx Developmental Delay, Hx Headaches, Hx Migraine, Hx Seizures, Hx Spinal Cord Injury, Hx Transient Ischemic Attacks (TIA) Psychiatric History: Reports: Hx Anxiety, Hx Depression Denies: Hx Panic Disorder - Cancer History Cancer Type, 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 Hx Chemotherapy: No Hx Radiation Therapy: Yes Hx Palliative Cancer Treatment: No - Surgical History Surgery Procedure, Year, and Place: cholecystectomy, carpal tunnel bilat hands, hysterectomy Hx Anesthesia Reactions: No Infectious Disease History: No Infectious Disease History: Reports: Hx of Known/Suspected MRSA Denies: Traveled Outside the [place] in Last 30 Days - Family History Known Family History: Positive: Hypertension, Diabetes - Social History Occupation: Unemployed Lives: [facility] Alcohol Use: Occasionally Alcohol Amount: wine Hx Substance Use: No Substance Use Type: Reports: None Hx Tobacco Use: Yes Smoking Status (MU): Light Every Day Tobacco Smoker Type: Cigarettes Have You Smoked in the Last Year: Yes Review of Systems Negative: Fever Positive: Other - back pain Positive: Numbness - bilateral LE All Other Systems Reviewed And Are Negative: Yes Physical Exam - Summary Physical Exam Summary: Appearance: The patient is well-nourished in no acute distress and in no acute pain. Skin: The skin is warm and dry and skin color reflects adequate perfusion. HEENT: The head is normocephalic and atraumatic. The pupils are equal and reactive. The conjunctivae are clear and without drainage. Nares are patent and without drainage. Mouth reveals moist mucous membranes and the throat is without erythema and exudate. The external ears are intact. The ear canals are patent and without drainage. The tympanic membranes are intact. Neck: the neck is supple with full range of motion and non-tender. There are no carotid bruits. There is no neck vein distension. Respiratory: Chest is non-tender. Lungs are clear to auscultation and breath sounds are symmetrical and equal. Cardiovascular: Heart is regular rate and rhythm. There is no murmur or rub auscultated. There is no peripheral edema and pulses are symmetrical and equal. Abdomen: The abdomen is soft and non-tender. There are normal bowel sounds heard in all four quadrants and there is no organomegaly palpated. Musculoskeletal: There is no back tenderness noted. Tender with ROM of R LE. There is good capillary refill. There is no peripheral edema or calf tenderness elicited. Neurological: Patient is alert and oriented to person, place and time. The patient has symmetrical motor strength in all four extremities. Cranial nerves are grossly intact. Deep tendon reflexes are symmetrical and equal in all four extremities. Psychiatric: The patient has an appropriate affect and does not exhibit any anxiety or depression. Triage Information Reviewed: Yes Vital Signs On Initial Exam: Initial Vitals Temp Pulse Resp BP Pulse Ox 98.9 F 83 27 131/99 93 10/12/17 15:58 10/12/17 15:58 10/12/17 15:58 10/12/17 15:58 10/12/17 15:58 Vital Signs Reviewed: Yes Diagnostics - Vital Signs Vital Signs Temp Pulse Resp BP Pulse Ox 10/12/17 15:58 98.9 F 83 27 131/99 93 - Laboratory Lab Statement: Any lab studies that have been ordered have been reviewed, and results considered in the medical decision making process. Re-Evaluation - Re-Evaluation First Eval Re-Evaluation Time: 18:31 Change: Worse - Pt states she is experiencing more pain than when she arrived in the ED. Back Pain Course/Dx - Course Course Of Treatment: Ms. Regalado left the NH today because her leg pain is not being managed. For some reason the requip and neurontin that she used for her chronic pain were not started. She presents just asking for those medications as they manage her pain. She has been given them at this point and I am waiting to see if they help. - Diagnoses Provider Diagnoses: Chronic leg pain Discharge - Sign-Out/Discharge Documenting (check all that apply): Discharge/Admit/Transfer - discharge - Discharge Plan Condition: Stable Disposition: HOME Referrals: Janes GAMING,Lidia Abraham [Primary Care Provider] - 2 Days Additional Instructions: Return to the ED for new or worsening symptoms. - Billing Disposition and Condition Condition: STABLE Disposition: HOME The documentation as recorded by the Seng jolley Stephanie accurately reflects the service I personally performed and the decisions made by me, Linden Blackwell MD.
[2017-10-12 22:42] VITALS: BP 153/94
== END 2017-10-12 23:20 | disposition home or self-care (01) ==
LOC: ED 15:43
DX: G89.29 Other chronic pain (principal); M54.5 Low back pain; M79.606 Pain in leg, unspecified; F17.210 Nicotine dependence, cigarettes, uncomplicated
CPT/HCPCS: 99284; A9270-GY

== ENCOUNTER 2017-10-16 09:28 | Emergency (ER) | payer MEDICARE, MEDICAID ==
[2017-10-16] MEDS ORDERED: Albuterol/Ipratropium NEB.SOL* Albuterol 2.5 MG/Ipratropium 0.5 MG 3 ML INH ONE (10:23)
[2017-10-16] MEDS ORDERED: NS 0.9% 1000 ML* 1,000 ML IV SCH (10:30)
[2017-10-16 10:43] LABS: ABS Basophils 0.1 10^3/ul (0-0.2); ABS Eosinophils 0.1 10^3/ul (0-0.6); ABS Lymphocytes 2.3 10^3/ul (1.0-4.8); ABS Monocytes 0.5 10^3/ul (0-0.8); ABS Neutrophils 3.3 10^3/ul (1.5-7.7); ABS Nucleated RBC 0 10^3/ul; Eosinophil % 1.7 % (0-6); Hematocrit 39 % (35-47); Hemoglobin 13.2 g/dl (12.0-16.0); Lymphocyte % 37.6 % (25-47); Mean Corpuscular HGB Conc 34 g/dl (31-36); Mean Corpuscular Hemoglobin 31 pg (27-31); Mean Corpuscular Volume 93 fL (80-97); Nucleated Red Blood Cells % 0; Platelet Count 172 10^3/ul (150-450); Red Blood Count 4.23 10^6/ul (4.0-5.4); Red Cell Distribution Width 15 % (10.5-15); White Blood Count 6.2 10^3/ul (3.5-10.8)
[2017-10-16 11:07] LABS: EGFR Non-African American 74.1 (>60)
[2017-10-16] MEDS ORDERED: rOPINIRole TAB* 1 MG PO ONE (11:55)
--- NOTE | 2017-10-16 11:57 | RAD ---
INDICATION: Chest pain left side. COMPARISON: Correlation is made with a prior chest x-ray study from August 23, 2017. TECHNIQUE: A portable view of the chest was obtained. FINDINGS: The heart appears mildly enlarged and unchanged. The patient appears to be status post aortic valve surgery. The lungs are underinflated and clear. No pleural effusion is seen. IMPRESSION: NO EVIDENCE FOR ACUTE DISEASE.
--- NOTE | 2017-10-16 12:00 | RAD ---
INDICATION: Fall. Pain COMPARISON: None TECHNIQUE: Routine frontal, Y and axial views were obtained. FINDINGS: There is left AC joint osteoarthritis and there are irregularities but the greater tuberosity consistent with degenerative change. There is minor spurring about the inferior glenoid There are no acute osseous findings. The soft tissues are intact. IMPRESSION: OSTEOARTHRITIS. NO ACUTE FINDINGS.
--- NOTE | 2017-10-16 14:31 | ED ---
Seng Mustafa Stephanie, scribed for Lionel Cruz MD on 10/16/17 at 1029 . HPI Chest Pain - HPI Summary HPI Summary: The pt is a 72 y/o F BIBA to the ED with c/o CP that began this morning at 04: 00. Symptoms include L shoulder pain, diaphoresis, productive cough (green mucus ), L LE edema and L UE weakness. Aggravating factors of L UE pain include movement. She states her L UE weakness, L LE weakness, and L facial droop is chronic since her previous stroke. The pt states she fell down 4 steps yesterday but felt no pain s/p fall until 04:00 today. The pt states her nurse at the [facility] was nervous because her BP increased last night. The pt states she had heart surgery last month. At its worst, the pts shoulder pain is rated a 9 in severity. The pt states she currently feels no pain due to receiving Percocet. - History of Current Complaint Chief Complaint: EDChestWallPain Time Seen by Provider: 10/16/17 10:07 Hx Obtained From: Patient Onset/Duration: Started Hours Ago - 6, Resolved Time of Onset: 04:00 Timing: Constant Initial Severity: Severe Current Severity: None Pain Intensity: 9 Pain Scale Used: 0-10 Numeric Chest Pain Location: Left Lateral Chest Pain Radiates: Yes Chest Pain Radiates To:: Shoulder - L shoulder Aggravating Factor(s): Movement Alleviating Factor(s): Nothing Associated Signs and Symptoms: Positive: Chest Pain, Weakness - L UE, Swelling - L LE, Diaphoresis, Productive Cough - Additional Pertinent History Primary Care Physician: JIMENEZ - Allergy/Home Medications Allergies/Adverse Reactions: Allergies Allergy/AdvReac Type Severity Reaction Status Date / Time aspirin Allergy Unknown Verified 07/26/17 14:12 Reaction Details Carbapenems Allergy Unknown Verified 07/26/17 14:12 Reaction Details Cephalosporins Allergy Unknown Verified 07/26/17 14:12 Reaction Details ketorolac Allergy Unknown Verified 07/26/17 14:12 Reaction Details Penicillins Allergy Unknown Verified 07/26/17 14:12 Reaction Details Home Medications: Home Medications Al Hydrox/Mg Hydrox/Pratima BULK* [Mylanta - BULK BOT*] 30 ml PO Q4H PRN 10/16/17 [ History Confirmed 10/16/17] Diazepam TAB(*) [Valium TAB(*)] 5 mg PO BID 10/16/17 [History Confirmed 10/16/17 ] LevoCETirizine TAB (NF) [Xyzal TAB (NF)] 5 mg PO DAILY PRN 10/16/17 [History Confirmed 10/16/17] Loperamide CAP* [Imodium CAP*] 4 mg PO Q4H PRN 10/16/17 [History Confirmed 10/16] oxyCODONE/Acetamin 5/325 MG* [Percocet 5/325 TAB*] 1 tab PO Q12H 10/16/17 [ History Confirmed 10/16/17] PMH/Surg Hx/FS Hx/Imm Hx Endocrine/Hematology History: Reports: Hx Anticoagulant Therapy, Hx Diabetes, Hx Thyroid Disease Denies: Hx Blood Transfusions Cardiovascular History: Reports: Hx Angina, Hx Congestive Heart Failure, Hx Hypercholesterolemia, Hx Hypertension, Hx Peripheral Vascular Disease, Hx Syncope, Other Cardiovascular Problems/Disorders - CHF Denies: Hx Pacemaker/ICD Respiratory History: Reports: Hx Asthma, Hx Chronic Bronchitis, Hx Chronic Obstructive Pulmonary Disease (COPD) - PT ON HOME O2 4 L/MIN, Hx Pneumonia, Hx Pulmonary Edema, Hx Seasonal Allergies, Hx Sleep Apnea Denies: Hx Lung Cancer GI History: Reports: Hx Gastroesophageal Reflux Disease Musculoskeletal History: Reports: Hx Arthritis, Hx Back Problems, Hx Bursitis, Hx Orthopedic Injury, Hx Osteoporosis Denies: Hx Fibromyalgia Sensory History: Reports: Hx Contacts or Glasses, Hx Vision Problem, Hx Hearing Problem - [place] Denies: Hx Hearing Aid Opthamlomology History: Reports: Hx Contacts or Glasses, Hx Vision Problem Neurological History: Reports: Hx CVA Denies: Hx Dementia, Hx Developmental Delay, Hx Headaches, Hx Migraine, Hx Seizures, Hx Spinal Cord Injury, Hx Transient Ischemic Attacks (TIA) Psychiatric History: Reports: Hx Anxiety, Hx Depression Denies: Hx Panic Disorder - Cancer History Cancer Type, 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 Hx Chemotherapy: No Hx Radiation Therapy: Yes Hx Palliative Cancer Treatment: No - Surgical History Surgery Procedure, Year, and Place: cholecystectomy, carpal tunnel bilat hands, hysterectomy Hx Anesthesia Reactions: No Infectious Disease History: No Infectious Disease History: Reports: Hx of Known/Suspected MRSA Denies: Traveled Outside the [place] in Last 30 Days - Family History Known Family History: Positive: Hypertension, Diabetes - Social History Occupation: Retired Lives: [facility] Alcohol Use: Occasionally Alcohol Amount: wine Hx Substance Use: No Substance Use Type: Reports: None Hx Tobacco Use: Yes Smoking Status (MU): Light Every Day Tobacco Smoker Type: Cigarettes Have You Smoked in the Last Year: Yes Review of Systems Positive: Skin Diaphoresis. Negative: Fever Positive: Chest Pain Positive: Cough - productive Positive: Edema - L LE, Other - L UE pain Positive: Weakness - L UE All Other Systems Reviewed And Are Negative: Yes Physical Exam - Summary Physical Exam Summary: General: well-appearing, no pain distress Skin: warm, color reflects adequate perfusion, dry Head: normal Eyes: EOMI, WENDY ENT: normal Neck: supple, nontender Respiratory:Crackles bilaterally, breath sounds present Cardiovascular: RRR Abdomen: soft, nontender Bowel: present Musculoskeletal: strength/ROM intact, mild tenderness to palpation in L shoulder joint, good ROM, slight edema in L LE Neurological: A&O x3, L facial droop, L UE and L LE chronically weaker than R side Psychological: affect/mood appropriate Triage Information Reviewed: Yes Vital Signs On Initial Exam: Initial Vitals Temp Pulse Resp BP Pulse Ox 96.8 F 61 30 128/62 92 10/16/17 09:36 10/16/17 09:36 10/16/17 09:36 10/16/17 09:36 10/16/17 09:36 Vital Signs Reviewed: Yes Diagnostics - Vital Signs Vital Signs Temp Pulse Resp BP Pulse Ox 10/16/17 09:37 64 18 128/62 91 10/16/17 09:36 96.8 F 63 24 128/62 92 - Laboratory Lab Results: Lab Results 10/16/17 10/16/17 10/16/17 Range/Units 10:33 10:33 10:33 WBC 6.2 (3.5-10.8) 10^3/ul RBC 4.23 (4.0-5.4) 10^6/ul Hgb 13.2 (12.0-16.0) g/dl Hct 39 (35-47) % MCV 93 (80-97) fL MCH 31 (27-31) pg MCHC 34 (31-36) g/dl RDW 15 (10.5-15) % Plt Count 172 (150-450) 10^3/ul MPV 8.0 (7.4-10.4) um3 Neut % (Auto) 52.5 (38-83) % Lymph % (Auto) 37.6 (25-47) % [place] % (Auto) 7.4 H (0-7) % Eos % (Auto) 1.7 (0-6) % Baso % (Auto) 0.8 (0-2) % Absolute Neuts (auto) 3.3 (1.5-7.7) 10^3/ul Absolute Lymphs (auto) 2.3 (1.0-4.8) 10^3/ul Absolute Monos (auto) 0.5 (0-0.8) 10^3/ul Absolute Eos (auto) 0.1 (0-0.6) 10^3/ul Absolute Basos (auto) 0.1 (0-0.2) 10^3/ul Absolute Nucleated RBC 0 10^3/ul Nucleated RBC % 0 INR (Anticoag Therapy) 0.90 (0.77-1.02) APTT 30.3 (26.0-36.3) seconds D-Dimer, Quantitative < 200 (Less Than 230) ng/mL Sodium 141 (139-145) mmol/L Potassium 4.2 (3.5-5.0) mmol/L Chloride 105 (101-111) mmol/L Carbon Dioxide 28 (22-32) mmol/L Anion Gap 8 (2-11) mmol/L BUN 14 (6-24) mg/dL Creatinine 0.77 (0.51-0.95) mg/dL Est GFR ( Amer) 95.3 (>60) Est GFR (Non-Af Amer) 74.1 (>60) BUN/Creatinine Ratio 18.2 (8-20) Glucose 110 H (70-100) mg/dL Lactic Acid (0.5-2.0) mmol/L Calcium 9.5 (8.6-10.3) mg/dL Magnesium 2.3 (1.9-2.7) mg/dL Total Bilirubin 0.40 (0.2-1.0) mg/dL AST 16 (13-39) U/L ALT 8 (7-52) U/L Alkaline Phosphatase 64 (34-104) U/L Total Creatine Kinase 109 (10-223) U/L CK-MB (CK-2) 5.5 (0.6-6.3) ng/mL Troponin I 0.00 (<0.04) ng/mL C-Reactive Protein < 1.00 (< 5.00) mg/L B-Natriuretic Peptide ( - 100) pg/mL Total Protein 7.1 (6.4-8.9) g/dL Albumin 4.4 (3.2-5.2) g/dL Globulin 2.7 (2-4) g/dL Albumin/Globulin Ratio 1.6 (1-3) Lipase 21 (11.0-82.0) U/L TSH 3.39 (0.34-5.60) mcIU/mL 10/16/17 10/16/17 10/16/17 Range/Units 10:33 10:33 13:23 WBC (3.5-10.8) 10^3/ul RBC (4.0-5.4) 10^6/ul Hgb (12.0-16.0) g/dl Hct (35-47) % MCV (80-97) fL MCH (27-31) pg MCHC (31-36) g/dl RDW (10.5-15) % Plt Count (150-450) 10^3/ul MPV (7.4-10.4) um3 Neut % (Auto) (38-83) % Lymph % (Auto) (25-47) % [place] % (Auto) (0-7) % Eos % (Auto) (0-6) % Baso % (Auto) (0-2) % Absolute Neuts (auto) (1.5-7.7) 10^3/ul Absolute Lymphs (auto) (1.0-4.8) 10^3/ul Absolute Monos (auto) (0-0.8) 10^3/ul Absolute Eos (auto) (0-0.6) 10^3/ul Absolute Basos (auto) (0-0.2) 10^3/ul Absolute Nucleated RBC 10^3/ul Nucleated RBC % INR (Anticoag Therapy) (0.77-1.02) APTT (26.0-36.3) seconds D-Dimer, Quantitative (Less Than 230) ng/mL Sodium (139-145) mmol/L Potassium (3.5-5.0) mmol/L Chloride (101-111) mmol/L Carbon Dioxide (22-32) mmol/L Anion Gap (2-11) mmol/L BUN (6-24) mg/dL Creatinine (0.51-0.95) mg/dL Est GFR ( Amer) (>60) Est GFR (Non-Af Amer) (>60) BUN/Creatinine Ratio (8-20) Glucose (70-100) mg/dL Lactic Acid 1.1 (0.5-2.0) mmol/L Calcium (8.6-10.3) mg/dL Magnesium (1.9-2.7) mg/dL Total Bilirubin (0.2-1.0) mg/dL AST (13-39) U/L ALT (7-52) U/L Alkaline Phosphatase (34-104) U/L Total Creatine Kinase (10-223) U/L CK-MB (CK-2) (0.6-6.3) ng/mL Troponin I 0.00 (<0.04) ng/mL C-Reactive Protein (< 5.00) mg/L B-Natriuretic Peptide 95 ( - 100) pg/mL Total Protein (6.4-8.9) g/dL Albumin (3.2-5.2) g/dL Globulin (2-4) g/dL Albumin/Globulin Ratio (1-3) Lipase (11.0-82.0) U/L TSH (0.34-5.60) mcIU/mL Result Diagrams: 10/16/17 10:33 10/16/17 10:33 Lab Statement: Any lab studies that have been ordered have been reviewed, and results considered in the medical decision making process. - Radiology CXR Xray Interpretation: No Acute Changes Radiology Interpretation Completed By: Radiologist - NO EVIDENCE FOR ACUTE DISEASE. ED physician has reviewed this report. Shoulder XRay Xray Interpretation: No Acute Changes Radiology Interpretation Completed By: Radiologist - OSTEOARTHRITIS. NO ACUTE FINDINGS. ED physician has reviewed this report. - EKG 10:31 Cardiac Rate: Bradycardia EKG Rhythm: Sinus Bradycardia - 52 BPM EKG Interpretation: LVH, borderline T-wave abnormalities in inferior leads 14:07 Cardiac Rate: Bradycardia EKG Rhythm: Sinus Bradycardia - [address] Segment: Normal Ectopy: None Re-Evaluation - Re-Evaluation First Eval Re-Evaluation Time: 13:13 Change: Unchanged - No CP. ED physician asked the pt if she wanted to be admitted for her CP but she declined. She agreed to do a repeat troponin. Chest Pain Course/Dx - Course Course Of Treatment: THE PAIN MS GALINDO CAME TO THE ED WITH WAS IDENTIFIED BY HER IN THE LEFT SHOULDER AND WORSE WITH MOVEMENT OF THE SHOULDER. WE DISCUSSED ADMISSION FOR EVALUATION OF THE LEFT SHOULDER/CHEST PAIN. THE PATIENT DECLINED. SHE DID AGREE TO A REPEAT TROPONIN. THE SECOND TROPONIN WAS NORMAL. AGAIN THE PATIENT DECLINED ADMISSION. F/U PMD; RETURN TO THE ED IF WORSE OR QUESTIONS OR CONCERNS. - Diagnoses Provider Diagnoses: Left shoulder pain, Chest pain Discharge - Sign-Out/Discharge Documenting (check all that apply): Discharge/Admit/Transfer - Discharge Plan Condition: Stable Disposition: HOME Patient Education Materials: Shoulder Pain (ED), Chest Pain (ED) Referrals: Janes GAMING,Lidia Abraham [Primary Care Provider] - Additional Instructions: FOLLOW UP WITH YOUR DOCTOR. RETURN TO THE EMERGENCY DEPARTMENT FOR ANY WORSENING OF YOUR CONDITION; CHEST PAIN, SHORTNESS OF BREATH, YOU FEEL ILL OR QUESTIONS OR CONCERNS. - Billing Disposition and Condition Condition: STABLE Disposition: HOME The documentation as recorded by the Seng jolley Stephanie accurately reflects the service I personally performed and the decisions made by me, Lionel Cruz MD.
[2017-10-16 15:47] VITALS: BP 102/59
== END 2017-10-16 15:42 | disposition home or self-care (01) ==
LOC: ED 09:28
DX: M25.512 Pain in left shoulder (principal); R07.9 Chest pain, unspecified; R53.1 Weakness; F17.210 Nicotine dependence, cigarettes, uncomplicated
CPT/HCPCS: 36415; 71045; 80053; 82550; 82553; 83605; 83690; 83735; 83880; 84443; 84484; 85025; 85379; 85610; 85730; 86140; 93005; 99283; A9270-GY

== ENCOUNTER 2017-12-07 01:21 | Emergency (ER) | payer MEDICARE, MEDICAID ==
[2017-12-07] MEDS ORDERED: HYDROmorphone INJ* 2 MG/ML CARPUJECT SYRINGE IV SLOW PU ONE (01:45)
[2017-12-07 02:02] LABS: ABS Basophils 0 10^3/ul (0-0.2); ABS Eosinophils 0.1 10^3/ul (0-0.6); ABS Lymphocytes 2.6 10^3/ul (1.0-4.8); ABS Monocytes 0.5 10^3/ul (0-0.8); ABS Neutrophils 3.1 10^3/ul (1.5-7.7); ABS Nucleated RBC 0 10^3/ul; Hematocrit 39 % (35-47); Hemoglobin 12.8 g/dl (12.0-16.0); Lymphocyte % 41.7 % (25-47); Mean Corpuscular HGB Conc 33 g/dl (31-36); Mean Corpuscular Hemoglobin 31 pg (27-31); Mean Corpuscular Volume 93 fL (80-97); Mean Platelet Volume 8.3 um3 (7.4-10.4); Nucleated Red Blood Cells % 0; Platelet Count 143 10^3/ul (150-450); Red Blood Count 4.15 10^6/ul (4.00-5.40); Red Cell Distribution Width 16 % (10.5-15); White Blood Count 6.2 10^3/ul (3.5-10.8)
[2017-12-07 02:18] LABS: EGFR Non-African American 75.2 (>60)
--- NOTE | 2017-12-07 06:05 | ED ---
Rosendo Mustafa Tiffany, scribed for Garth Hartley MD on 12/07/17 at 0144 . Lower Extremity - HPI Summary HPI Summary: 72 year old F BIBA to [facility] complains of bilateral lower leg pain since last couple of months, worse since 7 days ago. The patient rates the pain 9/10 in severity. Symptoms aggravated by nothing. Symptoms alleviated by nothing. Additionally complains of decreased sensation in bilateral legs, pain in the bottom of her feet. Hx stroke 5 years ago. States that she is being seen for possible bone CA. - History of Current Complaint Chief Complaint: EDExtremityLower Stated Complaint: LEG PAIN Time Seen by Provider: 12/07/17 01:38 Hx Obtained From: Patient Onset/Duration: Still Present Severity Currently: Severe Pain Intensity: 9 Pain Scale Used: 0-10 Numeric Timing: Constant Associated Signs And Symptoms: Positive: Other - decreased sensation in bilateral legs, pain in the bottom of her feet. Aggravating Factor(s): Nothing Alleviating Factor(s): Nothing - Allergies/Home Medications Allergies/Adverse Reactions: Allergies Allergy/AdvReac Type Severity Reaction Status Date / Time aspirin Allergy Unknown Verified 07/26/17 14:12 Reaction Details Carbapenems Allergy Unknown Verified 07/26/17 14:12 Reaction Details Cephalosporins Allergy Unknown Verified 07/26/17 14:12 Reaction Details ketorolac Allergy Unknown Verified 07/26/17 14:12 Reaction Details Penicillins Allergy Unknown Verified 07/26/17 14:12 Reaction Details PMH/Surg Hx/FS Hx/Imm Hx Previously Healthy: No Endocrine/Hematology History: Reports: Hx Anticoagulant Therapy, Hx Diabetes, Hx Thyroid Disease Denies: Hx Blood Transfusions Cardiovascular History: Reports: Hx Angina, Hx Congestive Heart Failure, Hx Hypercholesterolemia, Hx Hypertension, Hx Peripheral Vascular Disease, Hx Syncope, Other Cardiovascular Problems/Disorders - CHF Denies: Hx Pacemaker/ICD Respiratory History: Reports: Hx Asthma, Hx Chronic Bronchitis, Hx Chronic Obstructive Pulmonary Disease (COPD) - PT ON HOME O2 4 L/MIN, Hx Pneumonia, Hx Pulmonary Edema, Hx Seasonal Allergies, Hx Sleep Apnea Denies: Hx Lung Cancer GI History: Reports: Hx Gastroesophageal Reflux Disease Musculoskeletal History: Reports: Hx Arthritis, Hx Back Problems, Hx Bursitis, Hx Orthopedic Injury, Hx Osteoporosis Denies: Hx Fibromyalgia Sensory History: Reports: Hx Contacts or Glasses, Hx Vision Problem, Hx Hearing Problem - [place] Denies: Hx Hearing Aid Opthamlomology History: Reports: Hx Contacts or Glasses, Hx Vision Problem Neurological History: Reports: Hx CVA Denies: Hx Dementia, Hx Developmental Delay, Hx Headaches, Hx Migraine, Hx Seizures, Hx Spinal Cord Injury, Hx Transient Ischemic Attacks (TIA) Psychiatric History: Reports: Hx Anxiety, Hx Depression Denies: Hx Panic Disorder - Cancer History Cancer Type, 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 Hx Chemotherapy: No Hx Radiation Therapy: Yes Hx Palliative Cancer Treatment: No - Surgical History Surgery Procedure, Year, and Place: cholecystectomy, carpal tunnel bilat hands, hysterectomy Hx Anesthesia Reactions: No - Immunization History Immunizations Up to Date: Yes Infectious Disease History: No Infectious Disease History: Reports: Hx of Known/Suspected MRSA Denies: Traveled Outside the [place] in Last 30 Days - Family History Known Family History: Positive: Hypertension, Diabetes - Social History Alcohol Use: Occasionally Alcohol Amount: wine Hx Substance Use: No Substance Use Type: Reports: None Hx Tobacco Use: Yes Smoking Status (MU): Light Every Day Tobacco Smoker Type: Cigarettes Have You Smoked in the Last Year: Yes Review of Systems Positive: Other - bilateral lower leg pain, pain in the bottom of her feet. Neurological: Other - decreased sensation in bilateral legs All Other Systems Reviewed And Are Negative: Yes Physical Exam - Summary Physical Exam Summary: Appearance: Well appearing, no pain distress Skin: warm, dry, reflects adequate perfusion Head/face: normal Eyes: EOMI, WENDY ENT: normal Neck: supple, non-tender Respiratory: expiratory wheezes, scattered Cardiovascular: RRR, pulses symmetrical Abdomen: non-tender, soft Bowel Sounds: present Musculoskeletal: normal, strength/ROM intact Neuro: normal, sensory motor intact, A&Ox3 Triage Information Reviewed: Yes Vital Signs On Initial Exam: Initial Vitals Pulse Pulse Ox 78 88 12/07/17 01:25 12/07/17 01:25 Vital Signs Reviewed: Yes Diagnostics - Vital Signs Vital Signs Temp Pulse Resp BP Pulse Ox 12/07/17 01:27 98.0 F 74 22 132/77 93 12/07/17 01:26 75 132/77 90 12/07/17 01:25 78 88 - Laboratory Lab Results: Lab Results 12/07/17 12/07/17 Range/Units 01:49 01:50 WBC 6.2 (3.5-10.8) 10^3/ul RBC 4.15 (4.00-5.40) 10^6/ul Hgb 12.8 (12.0-16.0) g/dl Hct 39 (35-47) % MCV 93 (80-97) fL MCH 31 (27-31) pg MCHC 33 (31-36) g/dl RDW 16 H (10.5-15) % Plt Count 143 L (150-450) 10^3/ul MPV 8.3 (7.4-10.4) um3 Neut % (Auto) 49.2 (38-83) % Lymph % (Auto) 41.7 (25-47) % [place] % (Auto) 7.9 H (0-7) % Eos % (Auto) 1.0 (0-6) % Baso % (Auto) 0.2 (0-2) % Absolute Neuts (auto) 3.1 (1.5-7.7) 10^3/ul Absolute Lymphs (auto) 2.6 (1.0-4.8) 10^3/ul Absolute Monos (auto) 0.5 (0-0.8) 10^3/ul Absolute Eos (auto) 0.1 (0-0.6) 10^3/ul Absolute Basos (auto) 0 (0-0.2) 10^3/ul Absolute Nucleated RBC 0 10^3/ul Nucleated RBC % 0 Sodium 138 (135-145) mmol/L Potassium 4.3 (3.5-5.0) mmol/L Chloride 108 (101-111) mmol/L Carbon Dioxide 23 (22-32) mmol/L Anion Gap 7 (2-11) mmol/L BUN 17 (6-24) mg/dL Creatinine 0.76 (0.51-0.95) mg/dL Est GFR ( Amer) 91.0 (>60) Est GFR (Non-Af Amer) 75.2 (>60) BUN/Creatinine Ratio 22.4 H (8-20) Glucose 106 H (70-100) mg/dL Calcium 9.3 (8.6-10.3) mg/dL Result Diagrams: 12/07/17 01:49 12/07/17 01:50 Lab Statement: Any lab studies that have been ordered have been reviewed, and results considered in the medical decision making process. - CT L-Spine CT Interpretation Completed By: Radiologist - No significant areas of spinal stenosis. ED physician has reviewed this report. Re-Evaluation - Re-Evaluation First Eval Change: Improved - Patient now able to sleep comfortably Lower Extremity Course/Dx - Course Course Of Treatment: Patient with chronic, recurring bilateral lower extremity pain and burning in the feet. A CT scan was performed to evaluate for possible spinal stenosis as a cause. She only has mild to moderate canal narrowing with a disc bulge in the lower lumbar spine. This is likely not producing her symptoms. On review of her records, there is been a significant hesitancy to prescribe her opiate pain medications. It appears as though she has had issues with these in the past. As such, these medications have been deferred to her primary care physician. There is also no that that physician also is hesitant to prescribe these medications for this patient. She is now comfortable and I will defer all prescribing of chronic pain medication to her [facility] provider. - Diagnoses Differential Diagnosis/HQI/PQRI: Positive: Other - Spinal stenosis, peripheral neuropathy, compressive neuropathy Provider Diagnoses: Chronic pain syndrome, Peripheral neuropathy Discharge - Sign-Out/Discharge Documenting (check all that apply): Discharge/Admit/Transfer - discharge - Discharge Plan Condition: Improved Disposition: HOME Patient Education Materials: Chronic Pain (ED), Peripheral Neuropathy (ED) Referrals: Janes GAMING,Lidia Abraham [Primary Care Provider] - Additional Instructions: Call your doctor first thing in the morning for an appointment. Your primary physician will have to manage your chronic pain. Return if worse, new symptoms or other concerns. - Billing Disposition and Condition Condition: IMPROVED Disposition: Home The documentation as recorded by the Rosendo jolley Tiffany accurately reflects the service I personally performed and the decisions made by , Garth Hartley MD.
[2017-12-07 06:18] VITALS: BP 125/68
--- NOTE | 2017-12-07 09:57 | RAD ---
Indication: Bilateral lower extremity pain below the knees. CT of the lumbar spine were obtained in the axial plane. Sagittal and coronal reconstructed images were obtained. The vertebral bodies appear normal in height. There is dextroscoliosis centered at L2-3. Disc space narrowing at L1-2 and L2-3 is noted. Degenerative disc disease at L4-5 and L5-S1. No fracture is noted. Spinal canal appears to be intact. At L5-S1, there is a central disc protrusion indenting the thecal sac. This may impinge upon the left descending nerve root. At L4-5, broad-based protrusion flattens the thecal sac. There is facet and ligamentous hypertrophy with mild spinal stenosis at L4-5. At L3-4, broad-based protrusion flattens the thecal sac. No central or foraminal stenosis is noted. Broad-based protrusion is noted. At L2-3, there is degenerative disc disease noted. No central or foraminal stenosis is noted. At L1-2, there is degenerative disc disease. Broad-based protrusion flattens the thecal sac. IMPRESSION: 1. Degenerative disc disease at L1-2, L2-3, L4-5 and L5-S1. 2. Dextroscoliosis at L2-3. 3. At L5-S1, central disc protrusion which may impinge upon the left descending S1 nerve root. 4. Broad-based protrusion at L4-5 with facet and ligamentous hypertrophy which results in mild spinal stenosis. 5. At L3-4, broad-based protrusion flattens the thecal sac.
== END 2017-12-07 06:16 | disposition home or self-care (01) ==
LOC: ED 01:21
DX: M79.605 Pain in left leg (principal); M79.604 Pain in right leg; G89.29 Other chronic pain; G62.9 Polyneuropathy, unspecified; Z88.6 Allergy status to analgesic agent; Z88.0 Allergy status to penicillin; Z85.42 Personal history of malignant neoplasm of other parts of uterus; F17.210 Nicotine dependence, cigarettes, uncomplicated
CPT/HCPCS: 36415; 72131; 80048; 85025; 96374; 99283; J1170

== ENCOUNTER 2017-12-16 04:54 | Inpatient (IN) | payer MEDICARE, MEDICAID ==
[2017-12-16] MEDS ORDERED: Dexamethasone IV* 4 MG/ML 5 ML VIAL (20 MG) IVPB ONE (05:18)
[2017-12-16] MEDS ORDERED: fentaNYL* 50 MCG/ML 2 ML VIAL (100 MCG VIAL) IV SLOW PU ONE ×4 (05:18→13:31)
[2017-12-16] MEDS ORDERED: Ondansetron INJ* 2 MG/ML VIAL IV ONE (05:18)
[2017-12-16] MEDS ORDERED: Diazepam SYRINGE* 5 MG/ML 2 ML SYRINGE (10 MG total) IV ONE ×2 (05:45→09:17)
[2017-12-16] MEDS ORDERED: Diazepam INJ (NF) 5 MG/ML 10 ML VIAL (50 MG TOTAL) IV ONE (06:00)
[2017-12-16 06:01] LABS: ABS Basophils 0.1 10^3/ul (0-0.2); ABS Eosinophils 0.1 10^3/ul (0-0.6); ABS Lymphocytes 2.7 10^3/ul (1.0-4.8); ABS Monocytes 0.5 10^3/ul (0-0.8); ABS Neutrophils 3.3 10^3/ul (1.5-7.7); ABS Nucleated RBC 0 10^3/ul; Eosinophil % 1.2 % (0-6); Hematocrit 39 % (35-47); Hemoglobin 13.3 g/dl (12.0-16.0); Lymphocyte % 40.6 % (25-47); Mean Corpuscular HGB Conc 34 g/dl (31-36); Mean Corpuscular Hemoglobin 31 pg (27-31); Mean Corpuscular Volume 92 fL (80-97); Mean Platelet Volume 7.9 um3 (7.4-10.4); Nucleated Red Blood Cells % 0.1; Platelet Count 178 10^3/ul (150-450); Red Blood Count 4.24 10^6/ul (4.00-5.40); Red Cell Distribution Width 16 % (10.5-15); White Blood Count 6.7 10^3/ul (3.5-10.8)
[2017-12-16 06:22] LABS: EGFR Non-African American 84.1 (>60)
[2017-12-16 06:26] LABS: INR 1.04 (0.77-1.02)
--- NOTE | 2017-12-16 06:57 | ED ---
Kristie Mustafa Elizabeth, scribed for Niurka Antoine MD on 12/16/17 at 0519 . Back Pain - HPI Summary HPI Summary: This patient is a 72 year old F presenting to [facility] with a chief complaint of throbbing lower back pain since 03:00 this morning. The patient reports that she had a fall 19:00 yesterday and difficulty walking for the last 3 days. The patient rates the pain 10/10 in severity. Symptoms aggravated by nothing. Symptoms alleviated by nothing. Patient reports diarrhea bowel incontinence since last night and bilateral leg pain and numbness. The patient reports she has not urinated since 15:00 yesterday. The patient reports hx of chronic back pain but notes that the pain has never been this bad before. The patient reports that she lives in an adult home since August 2017 and she ambulates at home using a walker. The patient reports that she is supposed to take oxygen at home but she doesnt. The patient reports that she had a CVA 4 years ago and her legs felt like this. The patient reports that she takes Percocet 2x per day. - History of Current Complaint Stated Complaint: BACK PAIN Time Seen by Provider: 12/16/17 04:56 Hx Obtained From: Patient Onset/Duration: Sudden Onset, Lasting Hours - since 03:00 this morning, Still Present Onset/Duration: Started Hours Ago, Traumatic - recent fall at 19:00 yesterday, Still Present Timing: Constant Back Pain Location: Is Discrete @ - lower back Severity Initially: Moderate Severity Currently: Moderate Pain Intensity: 10 Pain Scale Used: 0-10 Numeric Character: Throbbing Aggravating Symptom(s): Nothing Alleviating Symptom(s): Nothing Associated Signs And Symptoms: Positive: Numbness - in bilateral legs, Bowel Incontinence - diarrhea, since 1 day ago, Other - difficulty walking - Allergies/Home Medications Allergies/Adverse Reactions: Allergies Allergy/AdvReac Type Severity Reaction Status Date / Time aspirin Allergy Unknown Verified 07/26/17 14:12 Reaction Details Carbapenems Allergy Unknown Verified 07/26/17 14:12 Reaction Details Cephalosporins Allergy Unknown Verified 07/26/17 14:12 Reaction Details ketorolac Allergy Unknown Verified 07/26/17 14:12 Reaction Details Penicillins Allergy Unknown Verified 07/26/17 14:12 Reaction Details PMH/Surg Hx/FS Hx/Imm Hx Endocrine/Hematology History: Reports: Hx Anticoagulant Therapy, Hx Diabetes, Hx Thyroid Disease Denies: Hx Blood Transfusions Cardiovascular History: Reports: Hx Angina, Hx Congestive Heart Failure, Hx Hypercholesterolemia, Hx Hypertension, Hx Peripheral Vascular Disease, Hx Syncope, Other Cardiovascular Problems/Disorders - CHF Denies: Hx Pacemaker/ICD Respiratory History: Reports: Hx Asthma, Hx Chronic Bronchitis, Hx Chronic Obstructive Pulmonary Disease (COPD) - PT ON HOME O2 4 L/MIN, Hx Pneumonia, Hx Pulmonary Edema, Hx Seasonal Allergies, Hx Sleep Apnea Denies: Hx Lung Cancer GI History: Reports: Hx Gastroesophageal Reflux Disease Musculoskeletal History: Reports: Hx Arthritis, Hx Back Problems, Hx Bursitis, Hx Orthopedic Injury, Hx Osteoporosis Denies: Hx Fibromyalgia Sensory History: Reports: Hx Contacts or Glasses, Hx Vision Problem, Hx Hearing Problem - KLAMATH Denies: Hx Hearing Aid Opthamlomology History: Reports: Hx Contacts or Glasses, Hx Vision Problem Neurological History: Reports: Hx CVA Denies: Hx Dementia, Hx Developmental Delay, Hx Headaches, Hx Migraine, Hx Seizures, Hx Spinal Cord Injury, Hx Transient Ischemic Attacks (TIA) Psychiatric History: Reports: Hx Anxiety, Hx Depression Denies: Hx Panic Disorder - Cancer History Cancer Type, 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 Hx Chemotherapy: No Hx Radiation Therapy: Yes Hx Palliative Cancer Treatment: No - Surgical History Surgery Procedure, Year, and Place: cholecystectomy, carpal tunnel bilat hands, hysterectomy Hx Anesthesia Reactions: No Infectious Disease History: No Infectious Disease History: Reports: Hx of Known/Suspected MRSA Denies: Traveled Outside the [place] in Last 30 Days - Family History Known Family History: Positive: Hypertension, Diabetes - Social History Alcohol Use: Occasionally Alcohol Amount: wine Hx Substance Use: No Substance Use Type: Reports: None Hx Tobacco Use: Yes Smoking Status (MU): Light Every Day Tobacco Smoker Type: Cigarettes Have You Smoked in the Last Year: Yes Review of Systems Negative: Fever Negative: Epistaxis Positive: Diarrhea Positive: incontinence - bowel incontinence Positive: Myalgia - lower back pain, Decreased ROM - in bilateral legs Positive: Numbness - in bilateral legs All Other Systems Reviewed And Are Negative: Yes Physical Exam - Summary Physical Exam Summary: VITAL SIGNS: Reviewed. GENERAL: Patient is lying in the stretcher in moderate distress due to pain. HEAD AND FACE: No signs of trauma. No ecchymosis, hematomas or skull depressions. No sinus tenderness. EYES: PERRLA, EOMI x 2, No injected conjunctiva, no nystagmus. EARS: Hearing grossly intact. Ear canals and tympanic membranes are within normal limits. MOUTH: Oropharynx within normal limits. NECK: Supple, trachea is midline, no adenopathy, no JVD, no carotid bruit, no c- spine tenderness, neck with full ROM. CHEST: Symmetric, no tenderness at palpation LUNGS: Clear to auscultation bilaterally. No wheezing or crackles. CVS: Regular rate and rhythm, S1 and S2 present, no murmurs or gallops appreciated. ABDOMEN: Soft, non-tender. No signs of distention. No rebound no guarding, and no masses palpated. Bowel sounds are normal. EXTREMITIES: no edema, no cyanosis or clubbing. Patient appears to be paraplegic at this time. NEURO: Alert and oriented x 3. Speech is normal and follows commands. Patient was unable to move both lower extremity , she stated they are weak and she is not feeling them,Sensory loss in lower extremities. SKIN: Dry and warm Triage Information Reviewed: Yes Vital Signs On Initial Exam: Initial Vitals Temp Pulse Resp BP Pulse Ox 98.2 F 84 30 193/102 92 12/16/17 04:57 12/16/17 04:57 12/16/17 04:57 12/16/17 04:57 12/16/17 04:57 Vital Signs Reviewed: Yes Diagnostics - Vital Signs Vital Signs Temp Pulse Resp BP Pulse Ox 12/16/17 04:57 98.2 F 84 30 193/102 92 - Laboratory Lab Results: Lab Results 12/16/17 12/16/17 12/16/17 Range/Units 05:51 05:51 05:51 WBC 6.7 (3.5-10.8) 10^3/ul RBC 4.24 (4.00-5.40) 10^6/ul Hgb 13.3 (12.0-16.0) g/dl Hct 39 (35-47) % MCV 92 (80-97) fL MCH 31 (27-31) pg MCHC 34 (31-36) g/dl RDW 16 H (10.5-15) % Plt Count 178 (150-450) 10^3/ul MPV 7.9 (7.4-10.4) um3 Neut % (Auto) 49.3 (38-83) % Lymph % (Auto) 40.6 (25-47) % [place] % (Auto) 7.8 H (0-7) % Eos % (Auto) 1.2 (0-6) % Baso % (Auto) 1.1 (0-2) % Absolute Neuts (auto) 3.3 (1.5-7.7) 10^3/ul Absolute Lymphs (auto) 2.7 (1.0-4.8) 10^3/ul Absolute Monos (auto) 0.5 (0-0.8) 10^3/ul Absolute Eos (auto) 0.1 (0-0.6) 10^3/ul Absolute Basos (auto) 0.1 (0-0.2) 10^3/ul Absolute Nucleated RBC 0 10^3/ul Nucleated RBC % 0.1 INR (Anticoag Therapy) 1.04 H (0.77-1.02) APTT 37.0 H (26.0-36.3) seconds Sodium 141 (135-145) mmol/L Potassium 4.2 (3.5-5.0) mmol/L Chloride 111 (101-111) mmol/L Carbon Dioxide 24 (22-32) mmol/L Anion Gap 6 (2-11) mmol/L BUN 18 (6-24) mg/dL Creatinine 0.69 (0.51-0.95) mg/dL Est GFR ( Amer) 101.8 (>60) Est GFR (Non-Af Amer) 84.1 (>60) BUN/Creatinine Ratio 26.1 H (8-20) Glucose 101 H (70-100) mg/dL Calcium 9.3 (8.6-10.3) mg/dL Magnesium 1.9 (1.9-2.7) mg/dL Total Bilirubin 0.40 (0.2-1.0) mg/dL AST 18 (13-39) U/L ALT 8 (7-52) U/L Alkaline Phosphatase 73 (34-104) U/L C-Reactive Protein 1.84 (<8.01) mg/L Total Protein 6.7 (6.4-8.9) g/dL Albumin 4.0 (3.2-5.2) g/dL Globulin 2.7 (2-4) g/dL Albumin/Globulin Ratio 1.5 (1-3) Result Diagrams: 12/16/17 05:51 12/16/17 05:51 Lab Statement: Any lab studies that have been ordered have been reviewed, and results considered in the medical decision making process. Re-Evaluation - Re-Evaluation 1st re-eval Re-Evaluation Time: 06:43 Change: Unchanged Comment: The patient was informed that she will be brought to MRI soon. Discussed lab results with patient. Back Pain Course/Dx - Course Course Of Treatment: This patient is a 72 year old F with hx chronic back pain and CVA reporting throbbing lower back pain, fecal incontinence since 1 day ago. The patient reports a fall 19:00 yesterday and difficulty walking for the last 3 days. The patient appears to be in moderate distress due to pain. Patient seems to be paraplegic at this time. Patient has sensory loss in lower extremities. Bladder scan 306 ml and patient has no urge to urinate. Patient needs MRI for lumbar and sacral spine rule-out cord compression. lab results showed no significant abnormalities. In the ED course the patient was given Fentanyl, Zofran, Valium and Decadron. Patient is signed out to Dr. Cruz upon physician shift change pending Thoracic Spine MRI, Lumbar Spine MRI, diagnosis and disposition. - Diagnoses Provider Diagnoses: Lower back pain Discharge - Sign-Out/Discharge Documenting (check all that apply): Sign-Out Patient Signing out patient TO: Lionel Cruz - Discharge Plan Condition: Stable Discharge Disposition Comment: Sign out patient to Dr. Cruz upon physician shift change pending MRI Referrals: Janes GAMING,Lidia Abraham [Primary Care Provider] - - Billing Disposition and Condition Condition: STABLE The documentation as recorded by the Kristie jolley Elizabeth accurately reflects the service I personally performed and the decisions made by me, Niurka Antoine MD.
[2017-12-16] MEDS ORDERED: LORazepam INJ* 2 MG/ML 1 ML VIAL ONE (07:13)
[2017-12-16] MEDS ORDERED: LORazepam INJ* 2 MG/ML 1 ML VIAL IV ONE (07:13)
[2017-12-16] MEDS ORDERED: methylPREDNISolone 125 MG* 2 ML VIAL IV ONE (07:27)
[2017-12-16] MEDS ORDERED: Albuterol/Ipratropium NEB.SOL* Albuterol 2.5 MG/Ipratropium 0.5 MG 3 ML INH ONE (07:27)
[2017-12-16] MEDS ORDERED: Gabapentin CAP(*) 300 MG PO ONE (08:25)
[2017-12-16] MEDS ORDERED: rOPINIRole TAB* 1 MG PO ONE (08:33)
[2017-12-16] MEDS ORDERED: fentaNYL* 50 MCG/ML 2 ML VIAL (100 MCG VIAL) ONE (08:42)
[2017-12-16] MEDS ORDERED: Albuterol HFA INHALER* 8 gm MDI INH PRN (08:53)
[2017-12-16] MEDS ORDERED: Dextrose 50% Syringe 50 ML* 25 GM/50 ML SYRINGE IV PUSH PRN (08:55)
[2017-12-16] MEDS: Mometasone/Formoter 200/5 MDI INH SCH ×2 (08:59→20:05)
[2017-12-16] MEDS ORDERED: rOPINIRole TAB* 1 MG PO SCH (09:00)
[2017-12-16] MEDS: Diazepam TAB(*) 5 MG PO SCH ×2 (09:01→20:26)
[2017-12-16] MEDS: Gabapentin CAP(*) 300 MG PO SCH ×3 (09:01→20:27)
[2017-12-16] MEDS ORDERED: Diazepam SYRINGE* 5 MG/ML 2 ML SYRINGE (10 MG total) IV PRN ×2 (09:07→10:31)
[2017-12-16] MEDS ORDERED: Acetaminophen TAB* 325 MG PO PRN (09:18)
[2017-12-16] MEDS ORDERED: Senna TAB PO PRN (09:18)
[2017-12-16] MEDS ORDERED: Docusate CAP* 100 MG PO PRN (09:18)
[2017-12-16] MEDS ORDERED: Ondansetron INJ* 2 MG/ML VIAL IV PRN (09:18)
[2017-12-16] MEDS ORDERED: Al Hydrox/Mg Hydrox/Simet LIQ* 30 ML UDC PO PRN (09:18)
--- NOTE | 2017-12-16 09:28 | RAD ---
INDICATION: Left shoulder injury. TECHNIQUE: 3 views of the left shoulder were obtained. FINDINGS: The bones are in normal alignment. No fracture is seen. There is mild osteoarthritic change in the acromioclavicular and glenohumeral joints. IMPRESSION: NO EVIDENCE OF FRACTURE.
--- NOTE | 2017-12-16 10:17 | RAD ---
INDICATION: Fall, pain. COMPARISON: Comparison is made with prior CT and MRI of the brain studies from July 26, 2017. TECHNIQUE: Contiguous axial sections of the brain were obtained from the skull base to the vertex without contrast. The exam is slightly limited due to motion artifact. FINDINGS: The ventricles, cisterns and sulci are within normal limits. There are small areas of decreased density in the subcortical and periventricular white matter suggestive of mild chronic small vessel ischemic changes. There is also an area of decreased attenuation within the keyla. These findings are unchanged from the prior study. No mass effect is present. There is no evidence for hemorrhage. No significant focal osseous abnormality is seen. The visualized portion of the paranasal sinuses and mastoid air cells appear clear. IMPRESSION: 1. NO EVIDENCE FOR ACUTE INTRACRANIAL ABNORMALITY. 2. FINDINGS SUGGESTIVE OF CHRONIC SMALL VESSEL ISCHEMIC CHANGES.
--- NOTE | 2017-12-16 10:23 | RAD ---
INDICATION: Fall, back pain. COMPARISON: Comparison is made with a prior CT of the lumbar spine from December 07, 2017. TECHNIQUE: Contiguous axial sections were obtained beginning above the T11 vertebra and continuing through the L5-S1 disc space. Images were reconstructed in the sagittal and coronal planes. FINDINGS: There is a moderate lumbar scoliosis convex toward the right side. No fracture is seen. There is subchondral bony sclerosis at multiple levels which appears to be secondary to degenerative disc disease. At the T12-L1 level there is a mild broad-based disc bulge. No significant spinal canal narrowing is present. There is mild neural foraminal narrowing on the left side. At the L1-L2 level there is a mild broad-based disc bulge and mild hypertrophic changes within the facet joints. There appears be mild spinal canal narrowing. There is mild to moderate neural foraminal narrowing on the right side. At the L2-L3 level there is a small left posterolateral and far lateral disc herniation. No significant spinal canal narrowing is present. There is moderate neural foraminal narrowing on the left side and mild neural foraminal narrowing on the right side. There are mild hypertrophic changes within the facet joints. At the L3-L4 level there is a mild broad-based disc protrusion. There are mild hypertrophic changes within the facet joints. There is mild to moderate spinal canal narrowing. There is moderate neural foraminal narrowing on the left side and mild neural foraminal narrowing on the right side. At the L4-L5 level there is a seso-ho-dwwiepaa broad-based disc bulge and moderate hypertrophic changes within the facet joints. There is moderate spinal canal narrowing. There is moderate neural foraminal narrowing on the right side and mild neural foraminal narrowing on the left side. It the L5-S1 level there is a jyge-ev-wmyjulma central disc protrusion. No significant spinal canal narrowing is present. There is mild bilateral neural foraminal narrowing. The urinary bladder is distended. There appears to be a slightly complex left renal cyst with faint peripheral calcification measuring 3.8 cm in diameter which is partially visualized on this study. Recommend a follow-up renal ultrasound for further evaluation. IMPRESSION: 1. NO EVIDENCE FOR FRACTURE. 2. MODERATE DIFFUSE LUMBAR SPONDYLOSIS DESCRIBED. 3. SLIGHTLY COMPLEX LEFT RENAL CYST. RECOMMEND A FOLLOW-UP NONEMERGENT RENAL ULTRASOUND FOR FURTHER EVALUATION.
--- NOTE | 2017-12-16 10:34 | RAD ---
INDICATION: Fall, back pain. COMPARISON: Comparison is made with a prior CT angiogram of the head and neck from July 26, 2017. TECHNIQUE: Contiguous axial sections were obtained beginning above the C7 vertebra and scanning through the L1 vertebra. Images were reconstructed in the sagittal and coronal planes. FINDINGS: There is a mild dorsal scoliosis convex toward the left side. In addition there is mild anterior subluxation of C6 on C7 of approximately 4 mm which is unchanged from the prior CT angiogram of the head and neck study from July 2017. No acute fracture is seen. There is mild anterior wedging and multiple Schmorl's nodes in several lower dorsal vertebral bodies suggestive of Scheuermann's disease. There is mild to moderate diffuse degenerative disc disease. No gross significant spinal canal narrowing is seen. There is mild on the bilateral lower lobe atelectasis. IMPRESSION: 1. NO EVIDENCE FOR ACUTE FRACTURE. 2. CHRONIC ANTEROLISTHESIS AT THE C6-C7 LEVEL, UNCHANGED. 3. MILD TO MODERATE DIFFUSE DEGENERATIVE DISC DISEASE.
[2017-12-16] MEDS: Metoprolol Tartrate TAB* 25 MG PO SCH ×2 (11:59→20:25)
[2017-12-16] MEDS: fentaNYL* 50 MCG/ML 2 ML VIAL (100 MCG VIAL) IV SLOW PU PRN ×2 (12:40→16:00)
[2017-12-16] MEDS: Insulin LISPRO* 1 UNITS UNIT SUBCUT SCH ×2 (12:56→18:28)
[2017-12-16] MEDS ORDERED: Diazepam INJ (NF) 5 MG/ML 10 ML VIAL (50 MG TOTAL) IV PRN (13:22)
[2017-12-16] MEDS ORDERED: LORazepam INJ* 2 MG/ML 1 ML VIAL IV PUSH PRN (13:41)
--- NOTE | 2017-12-16 14:09 | HP ---
CC: Lidia Marrero MD * HISTORY AND PHYSICAL: DATE OF ADMISSION: 12/16/17 TIME OF EVALUATION: 0900. PRIMARY CARE PHYSICIAN: Lidia Marrero MD CHIEF COMPLAINT: Low back pain, leg pain. HISTORY OF PRESENT ILLNESS: This is a 72-year-old female with a past medical history of COPD, on room air; atrial fibrillation; history of stroke, who presents to the emergency room with worsening pain. The patient presents from the [facility] after falling at 3 a.m., she states landing on her left side. She continued to have intractable lower extremity pain and requested to go to the emergency room. The patient states she has been having sensation changes off and on for the past 2 weeks of the lower extremities where she feels her legs and then the sensation goes away. She states that she has been having mini strokes, but has not notified any staff members where she develops blurry vision. She has difficulty writing. She gets pain behind her eyes and she loses sensation in her lower extremities. For the past 3 days, her pain has gotten significantly worse with low back pain with lower extremity pain. She was seen in the emergency room on 12/07/17 with similar complaints, which states per report in the ER note that she had bilateral lower leg pain for the past couple of months, worse over the past 7 days, had not fallen at that time. She did have a lumbar spine CT at that time that showed L5 to S1 central disk protrusion, which may impinge upon left descending S1 nerve root, broad based protrusion at L4-L5 with facet ligamentous hypertrophy, which results in mild spinal stenosis. The patient states she is normally ambulating with a walker. She was walking up until yesterday, but has significant difficulty with it and was not able to walk today. She also states her neck and her left shoulder are uncomfortable. In the emergency room, the concern was for cauda equina syndrome. The plan was to give her some sedation and place on the MRI machine. When the patient was on the MRI machine, she became very restless and agitated with respiratory issues. Dr. Cruz evaluated her then, she had no sensation in her lower extremities. She returned back to the emergency room without having any MRI obtained. Dr. Ivan was contacted and he recommended CT scan of the thoracic, lumbar, sacral spine. On reevaluation, her sensation changed where she had sensation in her right leg and was diminished in her left leg. Also, of note, the patient states that she has had diarrhea, nausea, and vomiting for the past 2 days. Her appetite has been good. No abdominal pain or dysuria. No urinary symptoms. She states despite appearing tachypneic that her breathing is the same, no shortness of breath, no chest pain, no cough. Also, of note, she was transferred here back in August for critical aortic stenosis to [place]. She states she had surgery, but is unclear what exactly was done. In the emergency room, the patient was given DuoNeb, Decadron 10 mg, Valium 5 mg , fentanyl 150 mg total, gabapentin 300 mg, 1 mg of Ativan, Solu-Medrol 125 mg, Zofran 8 mg, and Requip 1 mg. PAST MEDICAL HISTORY: 1. COPD, on room air. 2. Atrial fibrillation, on anticoagulation. 3. Depression. 4. History of restless legs syndrome. 5. Hypothyroidism. 6. Hypertension. 7. Hyperlipidemia. 8. Diabetes. 9. History of congestive heart failure. 10. Seizure disorder. 11. Chronic pain syndrome. 12. GERD. 13. Peripheral vascular disease. 14. Gout. 15. Critical aortic stenosis, per the patient, had repair in August 2017. PAST SURGICAL HISTORY: 1. Carpal tunnel release. 2. Cholecystectomy. 3. Hysterectomy. 4. Possibility of her aortic valve repaired. MEDICATIONS: 1. Metoprolol tartrate 12.5 mg p.o. b.i.d. 2. Benadryl 5 mg daily as needed for itching. 3. Valium 5 mg 1 tab p.o. b.i.d. 4. Levocetirizine 5 mg daily as needed for itching. 5. Metformin 500 mg p.o. daily. 6. Ropinirole 1 mg p.o. t.i.d. 7. Eliquis 5 mg p.o. b.i.d. 8. Percocet 10 mg/325 one tab p.o. b.i.d. 9. Symbicort 160/4.5 two puffs b.i.d. 10. Albuterol 2 puffs 4 to 6 hours as needed. 11. Gabapentin 300 mg p.o. daily in the morning. 12. Gabapentin 600 mg in the evening. ALLERGIES: ASPIRIN, CARBAPENEM, CEPHALOSPORIN, KETOROLAC, PENICILLIN. FAMILY HISTORY: Reviewed and noncontributory. SOCIAL HISTORY: The patient resides at the [facility] in [place], [place]. She normally ambulates with a walker. She states she is still smoking for the past 50 years. She did cut back and quit, but then the pain of her legs came back and she has been smoking, and now she has had a half pack per day for the past 50 years. No alcohol use. 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 She states she has no longer healthcare proxy. When asked about her children and grandchildren, she states no, they should not be her healthcare proxy, she would not, she states she has no family or any friends to designate as her healthcare proxy. In terms of her code states, she does not want resuscitation, but she would like a trial intubation. REVIEW OF SYSTEMS: A 14-point review of systems as mentioned in the HPI, otherwise negative. PHYSICAL EXAMINATION GENERAL: The patient is restless, moaning, complaining of back pain and leg pain, and appearing tachypneic. VITAL SIGNS: T-max is 98.2, pulse rate is 98, respiratory rate is 30, oxygen saturation is 92% on 3 L nasal cannula, blood pressure 117/96. HEENT: Head: Normocephalic. Pupils are equal and reactive, anicteric. Oropharynx: Mucous membranes are moist. NECK: Supple. No lymphadenopathy. RESPIRATORY: Rhonchorous breath sounds with bilateral expiratory wheezing and poor aeration with increased work of breathing. CARDIAC: Irregularly irregular rate and rhythm with a soft systolic murmur heard, most prominent at the left sternal base. ABDOMEN: Soft, nontender, nondistended. : Per ED report, diminished rectal tone. EXTREMITIES: The patient with restless lower extremities, +1 DPs. No clubbing , cyanosis, or edema. NEUROLOGIC: Alert and oriented x3. She does have facial asymmetry with decreased nasolabial folds on the left side. Her upper extremity strength is a 4/5, equal and bilateral. Lower extremities are 3/5, equal and bilateral. Negative pronator drift. MUSCULOSKELETAL: Significant point tenderness of her lumbar spine, more pronounced on the left side. DIAGNOSTIC STUDIES/LAB DATA: Radiographic data: EKG: Difficult to read due to significant amount of artifact. It appears to be sinus rhythm. Laboratory Data: White count 6.7, hemoglobin 13.3, hematocrit 39, platelets 178. INR is 1.04. Sodium 141, potassium 4.2, chloride 111, bicarb 24, BUN 18, creatinine 0.69, glucose 101. ASSESSMENT AND PLAN: This is a 72-year-old female with a past medical history of ongoing low back and lower extremity pain with a history of stroke with abnormal lumbar CT findings, who presents to the emergency room after having a fall, now with intractable back and leg pain. 1. Intractable low back and leg pain. She did have a lumbar spine CT a week ago that showed a central disk protrusion. This may have progressed contributing to her intractable pain. She is also concerned of her fluctuating sensory deficits being more of a transient ischemic attack, cerebrovascular accident etiology. Also, the concern is the patient being restless and her respiratory status did not allow for her to undergo an MRI at this time. Plan for now is to get her pain under better control, order a head CT without contrast, a lumbar, thoracic, and sacral spine CT, and evaluate from there. I did touch base with Dr. Ivan, who will determine based on those findings where to go from there. We will continue with bladder scanning and obtaining a postvoid residual to assess for any urinary retention. We will hold off on continuing her Eliquis until her head CT is back. We will give her steroids for her chronic obstructive pulmonary disease exacerbation, which will also help for any cord edema as well. We will admit her to the ICU in the setting of needing to aggressively manage her symptoms in the setting of a tenuous respiratory status. 2. Chronic obstructive pulmonary disease exacerbation. It is unclear if this is triggered by her pain, discomfort, and being restless, and not taking deep breaths. She has poor aeration. It is also possible she has had a viral syndrome as well with also concern for possible aspiration; she states she had nausea, vomiting earlier. Plan: We will continue her Dulera and albuterol. Continue prednisone. Monitor respiratory status. Follow up on a chest x-ray. CHRONIC MEDICAL PROBLEMS: 1. Restless legs, neuropathy. Continue her gabapentin and Requip. 2. Diabetes. Hold her Glucophage and continue on lispro sliding scale. 3. Atrial fibrillation. Continue her Lopressor. We will hold her Eliquis until we have a head CT. 4. COPD. As mentioned above, continue her home inhaler regimen as well as the above findings. 5. FEN. Place the patient on diabetic diet. 6. DVT prophylaxis. The patient scores a high risk. We will resume her Eliquis once her head CT is negative and she is not deemed a surgical candidate ; otherwise, if she is not a surgical candidate, we will continue her Eliquis. If she is a surgical candidate, we will put her on heparin subcu t.i.d. 7. Code status. The patient is a DNR, trial intubation. Again, readdressing her healthcare proxy, placing a social work consult in may help. I am concerned she will clinically deteriorate while she is here. PATIENT TIME: Greater than 60 minutes was spent doing history and physical, critical care time seen with Dr. Ivan and Dr. Cruz, more than half the time was spent in direct patient contact. [id number]/[facility] #: [id number] MEMO
[2017-12-16] MEDS ORDERED: Cetirizine* 10 MG TAB PO PRN (14:24)
[2017-12-16 15:45] LABS: Urine Appearance Clear; Urine Blood Negative (Negative); Urine Color Yellow; Urine Ketones Negative (Negative); Urine Protein Negative (Negative); Urine Specific Gravity 1.012 (1.010-1.030); Urine Urobilinogen Negative (Negative)
--- NOTE | 2017-12-16 16:00 | ED ---
Bree Mustafa Simon, scribed for Lionel Cruz MD on 12/16/17 at 0712 . Progress - Progress Note Progress Note: Met pt in MRI, she was in severe pain and unable to stay still for MRI, pain in upper legs and weakness in both legs. She reported that she couldnt feel when touched ankles and feet. 02 sat 89 on room air, audibly wheezing. PT returned to ED without MRI, given duoneb and solumedrol, and put on oxygen. )2 sat now in low 90s. Given 1 mg ativan which provided mild sedation but not adequate for MRI. Concerned with 02 sat too low if returns to MRI. Dr. Vick, recommended CT of t and l spine, potential MRI of brain if necessary with appropriate sedation for all of these procedures. also inquired about pt and family wishes about surgery. PE: pt is in pain, moving around the bed, not keeping 02 on. Having to use arm to help fern picker her legs. She reports she can feel touch on right leg but sensation deficit in left. Rectal exam performed, decreased sphincter tone, able to briefly contract anal sphincter, good sensation to touch on abd bilaterally. - EKG/XRAY/CT XRAY: Shoulder Xray Comments: No evidence of Fx. Dr. Cruz has reviewed this report. - Consult/PCP Time Called: 08:10 Consult/PCP: Dr. Quinteros Consult Reason/Comments: Agreed to come see pt in ED. - Additional EKG/XRAY/Consults EKG #2: NSR - 99 Comments: baseline wander Time Called: 08:20 Consult/PCP: Nikkie Reason/Comments: Recommended CT scan since pt unable to sit still for MRI. Re-Evaluation - Re-Evaluation 1st re-eval Re-Evaluation Time: 06:43 Change: Unchanged Comment: The patient was informed that she will be brought to MRI soon. Discussed lab results with patient. Second Eval Re-Evaluation Time: 07:25 Change: Unchanged Comment: Discussed pt PMHx of CVA, pt sx. Third Eval Re-Evaluation Time: 08:40 Change: Unchanged Comment: Discussed CT scan, pt care, did physical exam. Course/Dx - Course Course Of Treatment: IN ED, UNABLE TO ADEQUATELY SEDATE/DECREASE PAIN WHILE STILL MAINTAINING OXYGENATION TO GET MRI. DISCUSSED WITH DR VICK, NEUROSURGERY. ADMIT HOSPITALIST. - Diagnoses Provider Diagnoses: Lower back pain - Critical Care Time Critical Care Time: 30-74 min Discharge - Sign-Out/Discharge Documenting (check all that apply): Discharge/Admit/Transfer - Discharge Plan Condition: Stable Disposition: ADMITTED TO [facility] - Billing Disposition and Condition Condition: STABLE Disposition: Admitted to [facility] The documentation as recorded by the Bree jolley Simon accurately reflects the service I personally performed and the decisions made by me, Lionel Cruz MD.
--- NOTE | 2017-12-16 16:18 | RAD ---
INDICATION: Back pain evaluate for cauda equina syndrome. COMPARISON: There are no prior studies available for comparison. TECHNIQUE: Axial and sagittal T1 and T2-weighted images of the dorsal and lumbar spine were obtained. The exam is extremely limited. The patient moved on multiple sequences and was unable to be positioned for the standard images. Several of the images were repeated FINDINGS: DORSAL SPINE: There is a exaggerated dorsal kyphosis. The vertebra are normal in signal intensity. No acute fracture is seen. There is wedging of several lower dorsal vertebral bodies with multiple Schmorl's nodes are consistent with Scheuermann's disease. There is limited evaluation of the spinal cord due to motion artifact although no significant focal abnormality is seen. There is no gross evidence for spinal cord compression. There is mild to moderate diffuse degenerative disc disease in the mid and lower dorsal spine. LUMBAR SPINE: There is a moderate scoliosis convex toward the right side. No fracture is seen. At the L1-L2 level there appears to be mild broad-based disc bulge and mild hypertrophic changes within the facet joints. No significant spinal canal narrowing is seen. There is mild bilateral neural foraminal narrowing. At the L2-L3 level there is a [id number] broad-based disc bulge and hypertrophic changes within the facet joints. There appears to be mild to moderate spinal canal narrowing. At the L3-L4 level there is a mild broad-based disc bulge and hypertrophic changes within the facet joints. There appears be mild to moderate spinal canal narrowing. At the L4-L5 level there is a mild broad-based disc bulge and moderate hypertrophic changes within the facet joints. There appears to be mild to moderate spinal canal narrowing. At the L5-S1 level there is a small central disc protrusion. No significant spinal canal narrowing is present. There are moderate hypertrophic changes within the facet joints. IMPRESSION: 1. LIMITED STUDY, WHEN THE PATIENT IS CLINICALLY ABLE RECOMMEND REPEAT MR IMAGING. 2. MILD TO MODERATE DORSAL AND MODERATE LUMBAR SPONDYLITIC CHANGES DESCRIBED.
[2017-12-16] MEDS ORDERED: Mouth Piece, Nicotine* 1 EACH CARTRIDGE INH PRN ×2 (17:16)
[2017-12-16] MEDS ORDERED: Nicotine Inhaler* 10 MG AMP INH PRN (17:16)
[2017-12-16] MEDS: HYDROmorphone INJ* 0.5 MG/0.5 ML SYRINGE IV SLOW PU PRN ×2 (17:34→21:23)
[2017-12-16] MEDS: rOPINIRole TAB* 1 MG PO SCH (20:27)
--- NOTE | 2017-12-16 20:32 | CONS ---
CONSULTATION REPORT: DATE OF CONSULTATION: 12/16/17 HISTORY OF PRESENT ILLNESS: The patient is a very pleasant 72-year-old female with past medical history of COPD, atrial fibrillation, history of CVA with residual lower extremity weakness, who presented to the emergency room with increased back pain. The patient is [facility] and she was reported to have sustained a fall at 3 a.m. The patient reported that for the last 2 weeks, has been having numbness in both lower extremities which is intermittent and she reports that she has been having episodes of blurry vision with difficulty writing. The patient reports that the last 3 days she had back pain that has significantly gotten worse, as well as the lower extremity pain. She has had another visit to the emergency room on 12/07/17 with similar complaints. At that time, she complained of lower extremity pain for the last 2 months. The patient reports at this point that she has no weakness, numbness , or tingling of the upper extremities. She reports that she has chronic weakness in the lower extremities with difficulty ambulating after her stroke as well as intermittent numbness in the lower extremities. She reports that the she has chronic urinary incontinence after the stroke and seemed to be having diarrhea in her bowels. She reports that she has difficulty ambulating. The patient of note was able to ambulate from the wheelchair to her bed according to the ICU nurse. The patient had attempted to obtain an MRI of her thoracic and lumbar spine earlier, but had to be heavily medicated in order to obtain new images, also had CT scan of thoracic and lumbar spine as well as brain. The patient reports that her daughter who is estranged from her and also her grandchildren who are in [place] and she does not wish them to be involved in her care at this point. PAST MEDICAL HISTORY: 1. The patient has a history of COPD. 2. Atrial fibrillation. 3. Depression. 4. Restless leg syndrome. 5. Hypothyroidism. 6. Hypertension. 7. Hyperlipidemia. 8. Diabetes. 9. Congestive heart failure. 10. Seizure disorder. 11. Chronic pain syndrome. 12. GERD. 13. Peripheral vascular disease. 14. Gout. 15. Critical aortic stenosis. PAST SURGICAL HISTORY: 1. Carpal tunnel release. 2. Cholecystectomy. 3. Hysterectomy. 4. Possible aortic valve replacement. HOME MEDICATIONS: 1. The patient is on metoprolol. 2. Benadryl. 3. Valium. 4. Levocetirizine. 5. Metformin. 6. Ropinirole. 7. Eliquis. 8. Percocet. 9. Symbicort. 10. Albuterol. 11. Gabapentin. ALLERGIES: ASPIRIN, CARBAPENEM, CEPHALOSPORIN, KETOROLAC, PENICILLIN. FAMILY HISTORY: Noncontributory. SOCIAL HISTORY: The patient resides in a penitentiary in [place], [place]. She is a smoker for the last 50 years. Alcohol: Negative. Recreational drugs: Negative. PHYSICAL EXAM: The patient is complaining of back pain. She is on nasal cannula oxygen. She is awake, alert, oriented x3. Her pupils are equal and reactive. Cranial nerves II through XII grossly intact with decreased hearing on the right ear, which is chronic per the patient. Motor 4-5/5 in the upper extremities, 4/5 in the lower extremities with poor effort, possibly antalgic. The patient occasionally pulls at her legs, not able to move, but on repeated exam, the patient had strength of at least 4/5. Sensory grossly intact to light touch except decreased sensation below her knees bilaterally. The patient reports that this is chronic and recently has some intermittent numbness. Position absent bilaterally. Deep tendon reflexes +1 in the upper extremities, +1 in the lower extremities. No clonus. Babinski bilateral. Blanca's negative. DIAGNOSTIC STUDIES: The patient had a CT scan of the brain that did not reveal any acute intracranial abnormality. The patient had a CT scan of the thoracic spine that revealed chronic degenerative disk disease without evidence of acute fracture with chronic anterolisthesis at C6- C7 which is unchanged. The patient had a CT of the lumbar spine that revealed degenerative disk disease with multilevel disk vacuum phenomenon. There is a double curve at the lumbar spine with the apex towards the left at the L4-5 disk space and towards the right at the L2-3 level with a significant amount of osteophytes, but no evidence of acute fracture. The patient had an MRI of the thoracic spine that did not reveal evidence of significant stenosis or compression, although there is evidence of degenerative disk disease and significant thoracic kyphosis. The patient also had an MRI of her lumbar spine that reveals multilevel degenerative disk disease. There is increased signal at the L1-2 level. This seems to correlate with the disk vacuum phenomenon on the CT scan. No evidence of acute compression except possible hypertrophy of the ligamentum flavum at the left L1-L2 level, although this is evident in only one slice and it is difficult to determine if it correlates with motion artifact. Discussed with Dr. Grimaldo, radiologist, who also agree that no acute findings are apparent, but he will review the films again and contact us if there are any further findings. We discussed that we may need to repeat the MRI of her lumbar spine with and without contrast in order to obtain a better imaging quality. ASSESSMENT: The patient is a very pleasant 72-year-old female with multiple medical problems including chronic obstructive pulmonary disease, atrial fibrillation, stroke with complaints of back pain radiating to both lower extremities with intermittent weakness and numbness in both lower extremities. PLAN: The patient at this point has significant complaints of pain and was advised to continue monitoring her in the intensive care unit. The patient is on Eliquis, so surgical intervention in this setting may not be optimal. Even if it was an option, I would advocate for repeating MRI of the lumbar spine with and without contrast to further assess the spinal canal. The patient was reported to have present rectal tone and good perineal sensation and voluntary constriction per emergency room physician's exam, and on my exam has no tenderness to palpation of cervical, thoracic or lumbar spine with free range of motion of the cervical spine. Possibility of other etiologies of the pain cannot be excluded such as AAA, and we discussed the plan with Dr. Quinteros. I would advise to hold off Eliquis at this point and keep her n.p.o. after midnight in case repeat MRI reveals significant acute pathology. Because of the history of stroke and the episodes of intermittent numbness which are similar to what she experienced during her stroke, we will also recommend consideration for neurology evaluation. Thank you for allowing us to participate in the care of this patient. Please do not hesitate to contact our office in case you have any further questions or concerns regarding this patient. [id number]/[facility] #: [id number] MEMO
[2017-12-16] MEDS: Lidocaine Patch REMOVE* 1 NOTE MISC SCH (21:24)
[2017-12-16] MEDS: Heparin VIAL(*) 5000 UNITS/ML VIAL (FIVE THOUSAND) SUBCUT SCH (22:32)
[2017-12-17] MEDS: HYDROmorphone INJ* 0.5 MG/0.5 ML SYRINGE IV SLOW PU PRN ×3 (03:46→16:25)
[2017-12-17 04:07] LABS: ABS Basophils 0 10^3/ul (0-0.2); ABS Eosinophils 0 10^3/ul (0-0.6); ABS Lymphocytes 1.2 10^3/ul (1.0-4.8); ABS Monocytes 0.5 10^3/ul (0-0.8); ABS Neutrophils 4.8 10^3/ul (1.5-7.7); ABS Nucleated RBC 0 10^3/ul; Eosinophil % 0 % (0-6); Hematocrit 39 % (35-47); Hemoglobin 12.7 g/dl (12.0-16.0); Lymphocyte % 18.5 % (25-47); Mean Corpuscular HGB Conc 33 g/dl (31-36); Mean Corpuscular Hemoglobin 31 pg (27-31); Mean Corpuscular Volume 93 fL (80-97); Mean Platelet Volume 8.1 um3 (7.4-10.4); Nucleated Red Blood Cells % 0.1; Platelet Count 173 10^3/ul (150-450); Red Blood Count 4.15 10^6/ul (4.00-5.40); Red Cell Distribution Width 15 % (10.5-15); White Blood Count 6.5 10^3/ul (3.5-10.8)
[2017-12-17 04:22] LABS: EGFR Non-African American 84.1 (>60)
[2017-12-17] MEDS: Heparin VIAL(*) 5000 UNITS/ML VIAL (FIVE THOUSAND) SUBCUT SCH ×3 (05:42→22:40)
[2017-12-17] MEDS: rOPINIRole TAB* 1 MG PO SCH ×2 (08:04→21:09)
[2017-12-17] MEDS: Metoprolol Tartrate TAB* 25 MG PO SCH ×2 (08:04→21:08)
[2017-12-17] MEDS: Gabapentin CAP(*) 300 MG PO SCH ×3 (08:04→21:08)
[2017-12-17] MEDS: Lidocaine PATCH 5%* 1 PATCH TRANSDERM SCH (08:04)
[2017-12-17] MEDS: Diazepam TAB(*) 5 MG PO SCH ×2 (08:05→21:09)
[2017-12-17] MEDS: predniSONE TAB* 20 MG PO SCH (08:05)
[2017-12-17] MEDS: Mometasone/Formoter 200/5 MDI INH SCH ×2 (08:06→19:59)
[2017-12-17] MEDS: Insulin LISPRO* 1 UNITS UNIT SUBCUT SCH ×3 (08:34→17:32)
[2017-12-17] MEDS ORDERED: Famotidine IV* 10 MG/ML 2 ML (20 mg) IV ONE (08:43)
[2017-12-17] MEDS ORDERED: fentaNYL* 50 MCG/ML 2 ML VIAL (100 MCG VIAL) ONE (13:45)
[2017-12-17] MEDS ORDERED: Midazolam* 1 MG/ML 2 ML VIAL (2 MG) ONE (13:45)
[2017-12-17] MEDS ORDERED: KETAMINE HCL* 50 MG/ML 10 ML VIAL ONE (13:47)
[2017-12-17] MEDS: Albuterol 2.5 MG/3 ML NEB.SOL* (0.083%) INH PRN (14:22)
[2017-12-17] MEDS ORDERED: Gadoteridol* (CONTRAST) 279.3 MG/ML 10 ML IV ONE (15:50)
--- NOTE | 2017-12-17 18:06 | RAD ---
HISTORY: R/O CVA COMPARISONS: Head CT dated December 16, 2017. MRI of the brain dated July 26, 2014 TECHNIQUE: The following sequences were obtained of the head: Sagittal T1-weighted images, axial T2-weighted images, axial FLAIR images, axial susceptibility weighted images, axial T1-weighted images. Additionally, axial diffusion-weighted images were obtained with calculated apparent diffusion coefficients. FINDINGS: HEMORRHAGE/INFARCT: There is no hemorrhage or acute infarct. MASSES/SHIFT: There is no mass or shift. EXTRA-AXIAL SPACES/MENINGES: There are no extra-axial fluid collections. SULCI AND VENTRICLES: The sulci and ventricles are normal in size and position for the patient's stated age. CEREBRUM: There are multiple scattered small foci of elevated T2/FLAIR signal within the periventricular and subcortical white matter. Accounting for artifact on the previous examination, the appearance is similar. BRAINSTEM: There is elevated T2/FLAIR signal within the pontine white matter, stable from the previous examination. CEREBELLUM: There are no focal parenchymal abnormalities. The cerebellar tonsils are normal in size and position. SELLA: The sella is normal. PINEAL: The pineal region is clear. CP ANGLE/TEMPORAL BONES: The labyrinthine structures are grossly normal. VESSELS: Normal flow-voids are noted within the visualized vertebral vasculature. DIFFUSION ABNORMALITIES: There are no diffusion abnormalities. PARANASAL SINUSES/MASTOIDS: The paranasal sinuses are clear. ORBITS: The orbits are unremarkable. BONES AND SOFT TISSUE: No bone or soft tissue abnormalities are noted. OTHER: None IMPRESSION: 1. ELEVATED T2/FLAIR SIGNAL WITHIN THE PERIVENTRICULAR, SUBCORTICAL, AND PONTINE WHITE MATTER. WHILE THIS IS NONSPECIFIC, THE APPEARANCE IS SUGGESTIVE OF CHRONIC SMALL VESSEL ISCHEMIC CHANGE. 2. NO RESTRICTED DIFFUSION TO SUGGEST ACUTE INFARCT.
--- NOTE | 2017-12-17 18:16 | RAD ---
HISTORY: R/O cauda equina syndrome COMPARISONS: CT dated December 16, 2017 TECHNIQUE: The following sequences were obtained of the lumbar spine: Sagittal and axial T1- and T2-weighted images, coronal T2-weighted images, and sagittal STIR images. Additionally, axial and sagittal T1 weighted images were obtained after contrast enhancement with a gadolinium-based intravenous contrast agent.. FINDINGS: SPINAL CORD, CONUS, AND CAUDA EQUINA: The visualized spinal cord, conus, and cauda equina are normal in caliber, position, and signal intensity. ALIGNMENT: There is a scoliotic curvature of the spine. VERTEBRAL BODIES: There is multilevel anterolateral marginal osteophyte formation. There is partial fusion of T10 and T11.. JOINTS: There is facet hypertrophic change along the lower lumbar spine. MUSCULATURE: There is mild atrophy with moderate fatty infiltration of the multifidus and erector spinae bilaterally. INTERVERTEBRAL DISCS: There is diffuse loss of intervertebral disc height and T2 signal throughout the spine. AXIAL IMAGES: T11-T12: There is marginal ossified formation at the neural foramina bilaterally. There is mild bilateral neuroforaminal narrowing. There is no significant central canal stenosis. T12-L1: There is a broad-based central disc protrusion measuring 0.3 cm in depth. There is bilateral facet hypertrophy. There is mild narrowing of the central canal with mild bilateral neural foraminal narrowing. L1-L2: There is bilateral facet hypertrophy. There is moderate left neural foraminal narrowing. There is no significant central canal stenosis. L2-L3: There is broad-based disc bulge with facet and ligamentous hypertrophy. There is marginal osteophyte formation at the neural foramina bilaterally. There is moderate left neural foraminal narrowing. There is mild narrowing of the central canal with partial effacement of the left lateral recess. L3-L4: There is broad based disc bulge. There is bilateral facet hypertrophy. There is marginal osteophyte formation at the neural foramina bilaterally. There is mild left neuroforaminal narrowing. There is no significant central canal stenosis. L4-L5: There is a broad-based disc bulge with ligamentous and facet hypertrophy. There is marginal osteophyte formation at the neural foramina bilaterally. There is severe right neural foraminal narrowing. There is mild narrowing of the central canal. L5-S1: There is bilateral facet hypertrophy. There is marginal osteophyte formation at the neural foramina bilaterally. There is severe bilateral neuroforaminal narrowing. There is no significant central canal stenosis. SOFT TISSUES: Multiple renal cysts are noted. OTHER: There is no abnormal enhancement. IMPRESSION: 1. SCOLIOSIS. 2. DEGENERATIVE DISC DISEASE AND OSTEOARTHRITIS. 3. THERE IS MULTILEVEL NEURAL FORAMINAL NARROWING DESCRIBED ABOVE. 4. THERE IS MILD NARROWING OF THE CENTRAL CANAL AT T12-L1, L2-L3, AND L4-L5. 5. THERE IS NO ABNORMAL ENHANCEMENT.
[2017-12-17] MEDS ORDERED: Dexamethasone IV* 4 MG/ML 1 ML (4 MG) ONE (18:18)
[2017-12-17] MEDS ORDERED: Propofol* 10 MG/ML 20 ML BTL IV PUSH ONE (18:19)
[2017-12-17] MEDS: Lidocaine Patch REMOVE* 1 NOTE MISC SCH (21:09)
[2017-12-17] MEDS: oxyCODONE/Acetamin 5/325 MG* TAB PO PRN (23:07)
--- NOTE | 2017-12-17 23:55 | PN ---
Progress Note - Progress Note Date of Service: 12/17/17 SOAP: Subjective: []Patient seen earlier this am. Much more comfortable. Reported to respond to dilaudid well. Objective: [] Easily arousable, Ox3, WENDY, face symmetric. Carmelina well, 5/5 UEs, No drift. 4-5/5 LEs Sensory grossly intact to light touch. Assessment: []72 yo f hs CVA, acute increase in chronic back pain, DDD Plan: []Monitor VS, Neurochecks Pain control. Repeat MRI reveals chronic DDD, scoliosis without compression of the conus. No neurosurgical intervention at this point. May follow up in office in one month if symptoms persist. Appreciate IM care. Sanket Ivan MD
[2017-12-18] MEDS: HYDROmorphone INJ* 0.5 MG/0.5 ML SYRINGE IV SLOW PU PRN (03:23)
[2017-12-18] MEDS: Albuterol 2.5 MG/3 ML NEB.SOL* (0.083%) INH PRN (05:13)
[2017-12-18] MEDS: Heparin VIAL(*) 5000 UNITS/ML VIAL (FIVE THOUSAND) SUBCUT SCH ×2 (06:02→14:42)
[2017-12-18 07:47] VITALS: BP 117/44
[2017-12-18] MEDS: Mometasone/Formoter 200/5 MDI INH SCH (09:03)
[2017-12-18] MEDS: Insulin LISPRO* 1 UNITS UNIT SUBCUT SCH ×2 (09:13→12:41)
[2017-12-18] MEDS: Lidocaine PATCH 5%* 1 PATCH TRANSDERM SCH (09:14)
[2017-12-18] MEDS: Diazepam TAB(*) 5 MG PO SCH (09:16)
[2017-12-18] MEDS: Gabapentin CAP(*) 300 MG PO SCH (09:17)
[2017-12-18] MEDS: Metoprolol Tartrate TAB* 25 MG PO SCH (09:17)
[2017-12-18] MEDS: predniSONE TAB* 20 MG PO SCH (09:17)
[2017-12-18] MEDS: rOPINIRole TAB* 1 MG PO SCH (09:44)
[2017-12-18] MEDS: oxyCODONE/Acetamin 5/325 MG* TAB PO PRN (14:27)
--- NOTE | 2017-12-19 06:52 | PN ---
Hospitalist Progress Note Date of Service: 12/18/17 . HOSPITALIST DISCHARGE NOTE: See dc instructions and summary by me. Patient stable for dc dc instructions reviewed with the patient at the bedside. DC patient home today.
--- NOTE | 2017-12-20 01:20 | DS ---
DISCHARGE SUMMARY: DATE OF ADMISSION: 12/16/17 DATE OF DISCHARGE: 12/18/17 STATUS DURING HOSPITALIZATION: Inpatient. OUTPATIENT PHYSICIAN: Lidia Marrero MD PRINCIPAL DISCHARGE DIAGNOSES: 1. Intractable back and leg pain - resolved - MRI showing degenerative disk disease, not a surgical indication at this time. 2. Chronic obstructive pulmonary disease exacerbation - prednisone taper/ antibiotics prescribed. SECONDARY DIAGNOSES: 1. Chronic obstructive pulmonary disease - intermittent oxygen. 2. Atrial fibrillation - on anticoagulation. 3. Depression. 4. Restless leg syndrome. 5. Hypothyroidism. 6. Hypertension. 7. Hyperlipidemia. 8. Hvd-dgpcdmu-xsbuwsswn diabetes. 9. History of congestive heart failure - not active. 10. Seizure disorder. 11. Chronic pain syndrome. 12. Gastroesophageal reflux disease. 13. Peripheral vascular disease. 14. Gout. 15. Critical aortic stenosis, status post repair in August 2017. DISCHARGE MEDICATION REGIMEN: New: 1. Azithromycin 500 mg by mouth daily x5 days. New: 1. Prednisone 10 mg tabs with taper instructions given - 5 tabs daily for 2 days, then 4 tabs daily for 2 days, then 3 tabs daily for 2 days, then 2 tabs daily for 2 days, then 1 tab daily for 2 days, then stop. Adjustment: 1. Add Percocet 5/325 mg tabs 1 tab every 4 hours as needed for pain/fever - can use 2 tabs every 4 hours as needed. Continue: 1. Metoprolol 12.5 mg by mouth twice daily. 2. Benadryl 5 mg by mouth daily for itching on a p.r.n. basis. 3. Valium 5 mg by mouth twice daily. 4. Levocetirizine 5 mg daily as needed for itching. 5. Metformin 500 mg by mouth daily. 6. Ropinirole 1 mg by mouth 3 times daily. 7. Eliquis 5 mg by mouth twice daily. 8. Symbicort 160/4.5 strength 2 puffs twice daily. 9. Albuterol 2 puffs every 4 to 6 hours as needed. 10. Gabapentin 300 mg in the morning and 600 mg in the evening. 11. Continue Percocet 10/325 mg strength 1 tab by mouth twice daily standing. HISTORY OF PRESENT ILLNESS AND HOSPITAL COURSE: Please see the H and P by Dr. Kalina Quinteros as well as the Neurosurgery consultation by Dr. Silvestre Ivan. The patient was admitted on 12/16/17 with intractable lower extremity pain. She had sensation changes on and off for the past 2 weeks in her lower extremities when she would intermittently feel her legs and then not be able to feel them. The patient had initial imaging that was inconclusive and recommendation was for sedated MRI, which happens on 12/17/17. This was done with anesthesia assistance. Dr. Ivan reviewed the MRI results and concluded there was not an indication for surgery. The patient was treated with increased doses of pain medications and her pain was resolved. She was ambulating independently. She was fairly manipulative at different points threatening to kill herself in the outpatient setting if she did not get higher doses of pain medications. I did agree to a more frequent dosing of Percocet, but with lower doses per tablet with the option to increase if her outpatient provider felt that was appropriate. I think the steroid for her COPD exacerbation also helped her back and she will continue the taper as described above. She should follow up with her outpatient physician in the next 1 to 2 weeks. If she has any worrisome symptoms that are not immediately relieved, she can come back to the emergency room for further evaluation. TIME SPENT: Total time taken to discharge Ms. Regalado was 40 minutes greater than half of that time was spent at the bedside going over the discharge instructions with the patient. CONDITION AT DISCHARGE: Stable. [id number]/CPS #: [id number] MTDD
== END 2017-12-18 16:55 | disposition home or self-care (01) | DRG 552 ==
LOC: ED 04:54 → ICU 09:18 → MEDTELE 12-17 22:15
PROVIDERS: ADMIT Pediatrics; ATTEND Internal Medicine
DX: M51.37 Other intervertebral disc degeneration, lumbosacral region (principal); J44.1 Chronic obstructive pulmonary disease with (acute) exacerbation; M79.662 Pain in left lower leg; M79.661 Pain in right lower leg; G25.81 Restless legs syndrome; E11.9 Type 2 diabetes mellitus without complications; I48.91 Unspecified atrial fibrillation; Z66 Do not resuscitate; F32.9 Major depressive disorder, single episode, unspecified; E03.9 Hypothyroidism, unspecified; I10 Essential (primary) hypertension; E78.5 Hyperlipidemia, unspecified; G40.909 Epilepsy, unspecified, not intractable, without status epilepticus; G89.4 Chronic pain syndrome; K21.9 Gastro-esophageal reflux disease without esophagitis; E11.51 Type 2 diabetes mellitus with diabetic peripheral angiopathy without gangrene; F17.210 Nicotine dependence, cigarettes, uncomplicated; M10.9 Gout, unspecified; I35.0 Nonrheumatic aortic (valve) stenosis; W19.XXXA Unspecified fall, initial encounter; Y92.129 Unspecified place in nursing home as the place of occurrence of the external cause; Z79.01 Long term (current) use of anticoagulants; Z79.84 Long term (current) use of oral hypoglycemic drugs; Z79.899 Other long term (current) drug therapy; Z88.6 Allergy status to analgesic agent; Z88.0 Allergy status to penicillin; Z88.8 Allergy status to other drugs, medicaments and biological substances; I69.349 Monoplegia of lower limb following cerebral infarction affecting unspecified side
CPT/HCPCS: 36415; 70450; 70551; 72128; 72131; 72146; 72148; 72158; 80048; 80053; 81003; 83735; 85025; 85610; 85652; 85730; 86140; 87641; 93005; 94640; 99284; A9270-GY; A9579; J1100; J1170; J1644; J2060; J2250; J2405; J2704; J2930; J3010; J3360; J7512

== ENCOUNTER 2018-01-29 05:13 | Inpatient (IN) | payer MEDICARE, MEDICAID ==
--- NOTE | 2018-01-29 05:17 | ED ---
Lower Extremity - HPI Summary HPI Summary: Pt is 72 y/o F BIBA to [facility] c/o severe bilateral leg pain since 2 hours ago. Rates pain 10/10 in severity. States that her legs constantly hurt. Notes lower back pain and SOB. Takes oxycodone for pain management. Had pain medication this morning, but doesnt receive any at night. - History of Current Complaint Stated Complaint: LEG PAIN Time Seen by Provider: 01/29/18 05:16 Hx Obtained From: Patient Mechanism Of Injury: Unknown Onset/Duration: Still Present Severity Currently: Severe Pain Intensity: 10 Pain Scale Used: 0-10 Numeric Timing: Constant, Lasting Hours Associated Signs And Symptoms: Positive: Other - Lower back pain, SOB Aggravating Factor(s): Nothing Alleviating Factor(s): Nothing - Allergies/Home Medications Allergies/Adverse Reactions: Allergies Allergy/AdvReac Type Severity Reaction Status Date / Time aspirin Allergy Unknown Verified 01/29/18 08:51 Reaction Details Carbapenems Allergy Unknown Verified 01/29/18 08:51 Reaction Details Cephalosporins Allergy Unknown Verified 01/29/18 08:51 Reaction Details ketorolac Allergy Unknown Verified 01/29/18 08:51 Reaction Details Penicillins Allergy Unknown Verified 01/29/18 08:51 Reaction Details Home Medications: Home Medications Umeclidinium Hartley [Incruse Ellipta] 1 puff PO DAILY 01/29/18 [History Confirmed 01/29/18] PMH/Surg Hx/FS Hx/Imm Hx Endocrine/Hematology History: Reports: Hx Anticoagulant Therapy, Hx Diabetes, Hx Thyroid Disease Denies: Hx Blood Transfusions Cardiovascular History: Reports: Hx Angina, Hx Congestive Heart Failure, Hx Hypercholesterolemia, Hx Hypertension, Hx Peripheral Vascular Disease, Hx Syncope, Other Cardiovascular Problems/Disorders - CHF Denies: Hx Pacemaker/ICD Respiratory History: Reports: Hx Asthma, Hx Chronic Bronchitis, Hx Chronic Obstructive Pulmonary Disease (COPD) - PT ON HOME O2 4 L/MIN, Hx Pneumonia, Hx Pulmonary Edema, Hx Seasonal Allergies, Hx Sleep Apnea Denies: Hx Lung Cancer GI History: Reports: Hx Gastroesophageal Reflux Disease Musculoskeletal History: Reports: Hx Arthritis, Hx Back Problems, Hx Bursitis, Hx Orthopedic Injury, Hx Osteoporosis Denies: Hx Fibromyalgia Sensory History: Reports: Hx Contacts or Glasses, Hx Vision Problem, Hx Hearing Problem - [place] Denies: Hx Hearing Aid Opthamlomology History: Reports: Hx Contacts or Glasses, Hx Vision Problem Neurological History: Reports: Hx CVA Denies: Hx Dementia, Hx Developmental Delay, Hx Headaches, Hx Migraine, Hx Seizures, Hx Spinal Cord Injury, Hx Transient Ischemic Attacks (TIA) Psychiatric History: Reports: Hx Anxiety, Hx Depression Denies: Hx Panic Disorder - Cancer History Cancer Type, Location and Year: Uterine Cancer Hx Chemotherapy: No Hx Radiation Therapy: Yes Hx Palliative Cancer Treatment: No - Surgical History Surgery Procedure, Year, and Place: cholecystectomy, carpal tunnel bilat hands, hysterectomy, heart valve repair/replacement (2018) Hx Anesthesia Reactions: No Infectious Disease History: Reports: Hx of Known/Suspected MRSA - Family History Known Family History: Positive: Hypertension, Diabetes - Social History Alcohol Use: None Alcohol Amount: wine Hx Substance Use: No Substance Use Type: Reports: None Hx Tobacco Use: Yes Smoking Status (MU): Light Every Day Tobacco Smoker Type: Cigarettes Amount Used/How Often: 1/2 pack a day Have You Smoked in the Last Year: Yes Review of Systems Positive: Shortness Of Breath Positive: Other - bilateral leg pain, lower back pain All Other Systems Reviewed And Are Negative: Yes Physical Exam - Summary Physical Exam Summary: Appearance: Chronically ill appearing, obese woman in moderate respiratory distress and very anxious. Skin: Warm, dry, no obvious rash Eyes: sclera anicteric, no conjunctival pallor ENT: mucous membranes moist Neck: deferred Respiratory: Moderate respiratory distress, diffuse expiratory wheezing and tachypnea. Cardiovascular: Appears well perfused, pulses are nml Abdomen: deferred Musculoskeletal: Lower extremities appear normal; no swelling, redness, or warmth. No sign of acute injury Neurological: Awake and alert, mentation is normal, speech is fluent and appropriate Psychiatric: affect is normal, appears anxious Triage Information Reviewed: Yes Vital Signs Reviewed: Yes Diagnostics - Laboratory Result Diagrams: 01/29/18 05:44 01/29/18 05:44 Lab Statement: Any lab studies that have been ordered have been reviewed, and results considered in the medical decision making process. - EKG 05:56 Cardiac Rate: NL - 82 bpm EKG Interpretation: Sinus arrhythmia otherwise normal Lower Extremity Course/Dx - Diagnoses Provider Diagnoses: COPD exacerbation, Diabetic neuropathy - Physician Notifications Discussed Care Of Patient With: Quinn Allan Time Discussed With Above Provider: 06:55 - Dr. Allan asked for CTA of chest. Discharge - Sign-Out/Discharge Documenting (check all that apply): Patient Departure - Discharge Plan Condition: Guarded Disposition: ADMITTED TO [facility] - Billing Disposition and Condition Condition: GUARDED Disposition: Admitted to [facility] - Attestation Statements Document Initiated by Parasibe: Yes Documenting Scribe: Taylor Barton Provider For Whom Erinn is Documenting (Include Credential): Linden Garg MD Scribe Attestation: Taylor Mustafa, scribed for Linden Garg MD on 01/30/18 at 0414. Scribe Documentation Reviewed: Yes Provider Attestation: The documentation as recorded by the Taylor jolley accurately reflects the service I personally performed and the decisions made by , Linden Garg MD
[2018-01-29] MEDS ORDERED: Morphine VIAL* 10 MG/ML 1 ML VIAL IV ONE ×2 (05:18→06:03)
[2018-01-29] MEDS ORDERED: Albuterol 0.5% CONC NEB.SOL* 5 MG/ML 20 ml BOT INH ONE (05:19)
[2018-01-29 05:59] LABS: ABS Basophils 0 10^3/ul (0-0.2); ABS Eosinophils 0.2 10^3/ul (0-0.6); ABS Lymphocytes 1.7 10^3/ul (1.0-4.8); ABS Monocytes 0.5 10^3/ul (0-0.8); ABS Neutrophils 3.9 10^3/ul (1.5-7.7); ABS Nucleated RBC 0 10^3/ul; Eosinophil % 3.6 % (0-6); Hematocrit 40 % (35-47); Hemoglobin 13.3 g/dl (12.0-16.0); Lymphocyte % 26.3 % (25-47); Mean Corpuscular HGB Conc 33 g/dl (31-36); Mean Corpuscular Hemoglobin 31 pg (27-31); Mean Corpuscular Volume 93 fL (80-97); Mean Platelet Volume 8.2 um3 (7.4-10.4); Nucleated Red Blood Cells % 0; Platelet Count 145 10^3/ul (150-450); Red Cell Distribution Width 14 % (10.5-15); White Blood Count 6.3 10^3/ul (3.5-10.8)
[2018-01-29] MEDS ORDERED: methylPREDNISolone 125 MG* 2 ML VIAL IV ONE (06:51)
[2018-01-29] MEDS ORDERED: Iodixanol* (CONTRAST) 320 MG/ML 100 ML SDV IV ONE ×2 (07:18→10:27)
--- NOTE | 2018-01-29 08:05 | RAD ---
INDICATION: Dyspnea COMPARISON: Most recent comparison chest x-rays dated October 16, 2017 TECHNIQUE: Single AP portable view of the chest was obtained. FINDINGS: Image quality is compromised due to the relative inferiority of a portable chest x-ray. Again seen is a prosthetic aortic valve. There is mild cardiomegaly, slightly progressed when compared to the previous chest x-ray. The pulmonary vasculature appears mildly engorged and indistinct. There is density at the left lung base causing a small degree of left costophrenic angle blunting. Visualized bones are normal for the patient's age. IMPRESSION: According to the patient's clinical presentation, chest x-ray findings could be compatible with cardiogenic pulmonary edema. R1
--- NOTE | 2018-01-29 08:30 | RAD ---
INDICATION: Acute dyspnea and leg pain COMPARISON: Multiple prior chest x-rays, most recently dated January 29, 2018 TECHNIQUE: Axial source images were acquired following the administration of 84 mL Visipaque [address] angiographic technique. Coronal and sagittal reconstructed images were constructed and reviewed. FINDINGS: There there are no filling defects in the pulmonary arteries to indicate acute pulmonary embolic disease. Lungs exhibit diffuse centrilobular emphysematous changes. There is a mild degree of groundglass opacification. There is bronchiectatic dilatation of the medium and small airways. The heart is normal in size. There is no evidence of pericardial effusion. There is no evidence of aortic aneurysm or dissection. There is no mediastinal, hilar, or axillary lymphadenopathy. Multilevel degenerative changes of the thoracic spine includes loss of intervertebral disc height, vacuum disc phenomenon and endplate sclerosis at multiple levels. There are surgical clips in the gallbladder fossa. Benign fluid density cysts are noted in the bilateral kidneys. IMPRESSION: 1. No CT of evidence of pulmonary embolism. 2. Extensive chronic, degenerative and iatrogenic findings as described in body the report.
[2018-01-29] MEDS ORDERED: Albuterol 2.5 MG/3 ML NEB.SOL* (0.083%) INH PRN ×2 (09:56→22:56)
[2018-01-29] MEDS ORDERED: Albuterol/Ipratropium NEB.SOL* Albuterol 2.5 MG/Ipratropium 0.5 MG 3 ML INH SCH (10:00)
[2018-01-29] MEDS ORDERED: Umeclidin 62.5 MDI(NF) 1 INH MDI INH SCH (10:00)
[2018-01-29] MEDS ORDERED: Haloperidol INJ IV/IM* 5 MG/ML AMP IV SLOW PU STA (10:05)
[2018-01-29] MEDS ORDERED: Dextrose 50% Syringe 50 ML* 25 GM/50 ML SYRINGE IV PUSH PRN (10:07)
[2018-01-29] MEDS: Albuterol/Ipratropium NEB.SOL* Albuterol 2.5 MG/Ipratropium 0.5 MG 3 ML INH SCH ×3 (11:35→20:14)
--- NOTE | 2018-01-29 11:57 | RAD ---
HISTORY: Slurring words and BLLE weaknesss COMPARISONS: July 26, 2017 TECHNIQUE: Multiple contiguous axial CT scans were obtained of the head, before and after, and of the neck after the administration of nonionic intravenous contrast timed to the systemic arterial phase of contrast enhancement. Coronal and sagittal multiplanar reformations are submitted for review. Multiple 3-D maximum intensity projection reconstructions are also submitted for review. FINDINGS: The study is limited by patient motion artifact. CTA NECK: AORTIC ARCH: There is a normal three-vessel branching pattern of the aortic arch. There is no ostial or proximal stenosis of the cephalic great vessels. RIGHT VERTEBRAL ARTERY: The right vertebral artery is patent along its course, without stenosis. LEFT VERTEBRAL ARTERY: The left vertebral artery is patent along its course, without stenosis. DOMINANCE: The vertebral arteries are codominant. RIGHT COMMON CAROTID ARTERY: The right common carotid artery is patent. The right carotid bifurcation occurs at C3-C4 RIGHT INTERNAL CAROTID ARTERY: There is atheromatous disease of the right carotid bifurcation, without right internal carotid artery stenosis by NASCET criteria. RIGHT EXTERNAL CAROTID ARTERY: The right external carotid artery is unremarkable. LEFT COMMON CAROTID ARTERY: The left common carotid artery is patent. The left carotid bifurcation occurs at C3-C4 LEFT INTERNAL CAROTID ARTERY: There is atheromatous disease of the left carotid bifurcation, without left internal carotid artery stenosis by NASCET criteria. LEFT EXTERNAL CAROTID ARTERY: The left external carotid artery is unremarkable. VENOUS CIRCULATION: The venous system is unremarkable. SALIVARY GLANDS: The parotid glands, submandibular glands, sublingual glands are normal. NASAL CAVITY/NASOPHARYNX: The nasal cavity and nasopharynx are normal. ORAL CAVITY/OROPHARYNX: The oral cavity and oropharynx are unremarkable. LARYNGEAL APPARATUS/HYPOPHARYNX: The laryngeal apparatus and hypopharynx are normal. UPPER AIRWAY/UPPER ESOPHAGUS: The visualized upper airway and esophagus are normal. LUNG APICES: The lung apices are clear. THYROID GLAND: The thyroid gland is normal. LYMPH NODES: There is no lymphadenopathy by size criteria. BONES AND SOFT TISSUES: Degenerative changes are noted most pronounced at C6-C7. There is grade 1 anterolisthesis of C6-C7. CTA HEAD: INTRACRANIAL CIRCULATION: There is no aneurysm, vascular malformation, occlusion, or stenosis of the visualized intracranial circulation. The anterior communicating artery complex is clear. Bilateral posterior communicating arteries are identified. VENOUS CIRCULATION: The venous system is unremarkable. PERFUSION: There is no obvious parenchymal perfusion deficit. HEMORRHAGE/INFARCT: There is no hemorrhage or acute infarct. MASSES/SHIFT: There is no mass or shift. EXTRA-AXIAL SPACES: There are no extra-axial fluid collections. SULCI AND VENTRICLES: The sulci and ventricles are normal in size and position for the patient's stated age. CEREBRUM: There is mild hypoattenuation of the periventricular and subcortical white matter, stable from the previous examination. BRAINSTEM: There are no focal parenchymal abnormalities. CEREBELLUM: There are no focal parenchymal abnormalities. PARANASAL SINUSES: The paranasal sinuses are clear. ORBITS: The orbits are unremarkable. BONES AND SOFT TISSUE: No bone or soft tissue abnormalities are noted. OTHER: There is no abnormal enhancement. IMPRESSION: 1. NO ACUTE INTRACRANIAL PATHOLOGY. 2. NO ANEURYSM, VASCULAR MALFORMATION, OCCLUSION, OR STENOSIS OF THE VISUALIZED INTRACRANIAL CIRCULATION. 3. NO INTERNAL CAROTID ARTERY STENOSIS BY NASCET CRITERIA. CPT II Codes: 3100F.
[2018-01-29] MEDS: Acetaminophen TAB* 325 MG PO SCH ×3 (11:58→23:05)
[2018-01-29] MEDS ORDERED: Morphine INJ* 10 MG/ML 1 ML CARPUJECT IV STA (12:26)
[2018-01-29] MEDS ORDERED: Morphine INJ* 2 MG/ML 1 ML SYRINGE (TWO MG - NEW SYRINGE VERSION) ONE (12:36)
[2018-01-29] MEDS ORDERED: Morphine INJ* 2 MG/ML 1 ML SYRINGE (TWO MG - NEW SYRINGE VERSION) IV STA (12:47)
--- NOTE | 2018-01-29 12:51 | HP ---
ADMITTING HISTORY AND PHYSICAL: DATE OF ADMISSION: 01/29/18 CHIEF COMPLAINT: Bilateral lower extremity pain. HISTORY OF PRESENT ILLNESS: The patient is a 72-year-old lady with history of diabetes mellitus, atrial fibrillation, on Eliquis and COPD, on 4 L nasal cannula for 24x7, who presented with the above chief complaint she mentions that one month [employer], that is prior to admission. The patient mentions that her usual cough has increased in frequency and the quality of her sputum changed to muddy and sticky, thick and greenish consistency and by 1 week prior to admission, she started developing easy fatigability and weakness, especially of her lower extremities, which was also accompanied by increasing numbness and different quality of "numbness" from her previous history of peripheral neuropathy. When the patient asked to further clarify what she meant by that, she was unable to do so, but felt somehow the numbing quality during this visit is different from her previous experience and that her lower extremity pain was rated to be 10/10 in the pain scale. In the ED while she was being assessed, she was found to be mildly hypoxic at around 88-89% saturation and with increased respiratory rate, the patient was also found to be wheezing. Her chest x-ray was noted to be negative for infiltrates and given her increased risk despite being on Eliquis, she was ruled out for a PE with CT angio of her chest, which shows no evidence of pulmonary embolism as described with extensive chronic degenerative and iatrogenic finding, although there is some mild degree of ground-glass opacification and there is some bronchiectatic dilatation of the medium and small airways. There are also benign fluid density cysts that are noted in the bilateral kidneys and there are surgical clips in the gallbladder fossa. In the ED, she had been given Solu-Medrol 125 mg IV x1, morphine 10 mg x2 IV. On my evaluation of patient in the ED, she further mentioned that her leg weakness was accompanied by slurring of her words , which she mentions is something new and then when I walked in the room, the patient was observed to be obese and somewhat lethargic and slurring her words and when asked specifically she mentioned that this is somewhat new and mentioned that she has had 4 strokes in the past. The patient was immediately sent for a CT noncontrast of her head and CTA of her head and neck and these tests are currently pending as I dictate this H and P. PAST MEDICAL AND SURGICAL HISTORY: COPD at 4 L nasal cannula 24x7; atrial fibrillation, on anticoagulation; depression; history of restless leg syndrome; hypothyroidism; hypertension; hyperlipidemia; diabetes; history of CHF; seizure disorder; chronic pain syndrome; GERD; peripheral vascular disease; gout; critical aortic stenosis, per patient had repair back in August 2007 and she also mentions a history of CVA x4. Status post carpal tunnel release, status post cholecystectomy, hysterectomy, and possibility of an aortic valve repair. HOME MEDICATIONS: As follows: 1. Incruse Ellipta. 2. Gabapentin. 3. Diazepam. 4. Symbicort. 5. Apixaban. 6. Albuterol. 7. Ropinirole. 8. Oxycodone. 9. Metformin. 10. Diphenhydramine. 11. Metoprolol. 12. Xyzal. 13. Gabapentin. ALLERGIES: To ASPIRIN, CARBAPENEM, CEPHALOSPORIN, KETOROLAC, and PENICILLIN. FAMILY HISTORY: CVA, heart disease, and diabetes, her mother. SOCIAL HISTORY: The patient resides at the [facility] in [facility] and normally ambulates with walker. She still smokes about 1 cigarette per day, which she mentions has been lowered from her previous, previously cut back from half-a-pack per day for the last 50 years. She denied any alcohol abuse history nor IV drug use. REVIEW OF SYSTEMS: On review of systems, slurring of words, bilateral lower extremity pain, and numbness as described above including shortness of breath with increased cough and sputum production. The patient, however, denied any headaches, fevers, chills, nausea, vomiting, chest pain, abdominal pain, diarrhea, constipation, pain and/or increased frequency on urination, throat pain, or new skin lesions. The rest of the 14-point review of systems are otherwise unremarkable. PHYSICAL EXAMINATION GENERAL APPEARANCE: The patient is lethargic, but arousable and able to answer my questions appropriately. The patient, however, was noted to have some slurred speech and the patient was observed to have mouth open and while talking , her tongue does not seem to be as dynamic as it normally would and hence leading to some slurred speech. The patient mentions that this is something new for her at least as far as the slurring of her words and given that she does not usually watch her tongue when she speaks, unable to comment on the above observation just described. VITAL SIGNS: Shows the most recent vital signs of record with blood pressure of 141/76, saturating at 88%, 76 beats per minute heart rate. NECK: Soft, supple with no cervical lymphadenopathy. The patient is obese. JVD is unfortunately difficult to perceive given her body habitus. CHEST: Diffuse wheezing all throughout lung nelson with good air entry bilaterally with no rales. No rhonchi appreciated. HEART: S1, S2 within normal limits. Regular rate and rhythm. No murmurs, rubs , and gallops. ABDOMEN: Soft, nondistended, nontender. Normoactive bowel sounds x4. EXTREMITIES: No cyanosis, clubbing, or edema. PSYCHIATRIC: No active psychosis, depression, suicidal or homicidal ideation. SKIN: Warm to touch. LABORATORY DATA: Pertinent laboratory with CBC with normal WBC, H and H, and slightly low platelet count at 145, but it seems to be at her baseline. ABG showed 7.30 pH, pCO2 59, pO2 of 161, oxygen saturation of 99.2. Sodium and chloride of 142 and 3.9, BUN and creatinine of 14 and 0.61. ASSESSMENT AND PLAN: 1. Acute-on chronic respiratory failure and hypoxemia, likely secondary to COPD exacerbation given the patient has already been ruled out for pulmonary embolism. Therefore, we will place the patient on Solu-Medrol 60 mg IV q.8 as scheduled, DuoNebs q.4 hours [id number] while awake as well as albuterol inhalation for breakthrough. I will hold her Incruse Ellipta given she is already on scheduled DuoNeb and has appropriate anticholinergic currently placed , but should be placed back on discharge. I do not want to give her additional anticholinergics at this point given her lethargy, which could be due to her mild CO2 retention in the setting of COPD exacerbation. Although the chest x- ray reveals that she possibly may have some increased vascular signs that may possibly point to CHF and she does have history of CHF. This was not consistent with CT scan. Hence, I will order BNP and previous hospitalizations were found to have mildly elevated to low normal BNP. May consider challenging patient with short-course diuretic for possible overload and we will await this result. 2. Increasing bilateral lower extremity pain and weakness. I will continue her gabapentin, oxycodone p.r.n., and ropinirole. We will also place the patient on Tylenol for breakthrough pain and/or fever. 3. Lethargy. I will hold Incruse Ellipta as discussed above given anticholinergics can further cause confusion in addition to already being on scheduled anticholinergics short-acting as described above. I will also decrease her diazepam from 5 to 2.5 mg p.o. b.i.d. and we will hold off many of her antihistamines that can further exacerbate lethargy and we will continue watchful waiting. 4. Atrial fibrillation. Continue metoprolol and Eliquis. 5. Diabetes mellitus. We will hold off on all her oral meds and will place her on insulin sliding as ordered. 6. DVT prophylaxis. The patient is fully anticoagulated on Eliquis as described above and we will continue to follow. 7. Disposition. For PT evaluation. [id number]/CPS #: [id number] MEMO
[2018-01-29] MEDS ORDERED: Clopidogrel TAB* 300 MG PO ONE (12:56)
--- NOTE | 2018-01-29 13:26 | PN ---
Subjective Date of Service: 01/29/18 Interval History: Re-assessed pt today given RT recommended that pt be placed on BiPAP. Yet, on re-examination, the pt appeared to have clinically improved with Good air entry and improvement of wheezes with sats of 97% at 7L O2. Objective Active Medications: Acetaminophen (Tylenol Tab*) 650 mg PO Q6H [facility] Last Admin: 01/29/18 11:58 Dose: 650 mg Acetylcysteine (Acetylcysteine Cap (Renal)*) 1,200 mg PO BID HI Stop: 01/30/18 21:01 Albuterol (Ventolin 2.5 Mg/3 Ml Neb.Marjorie*) 2.5 mg INH Q2H PRN PRN Reason: SOB/WHEEZING Albuterol/Ipratropium (Duoneb (Albuterol 2.5 Mg/Ipratropium 0.5 Mg)) 1 neb INH Q4H [facility] Last Admin: 01/29/18 11:35 Dose: 1 neb Apixaban (Eliquis*) 5 mg PO BID [facility] Clopidogrel Bisulfate (Plavix Tab*) 75 mg PO DAILY [facility] Dextrose (D50w Syringe 50 Ml*) 12.5 gm IV PUSH .FOR FS < 60 - SS PRN PRN Reason: FS < 60 Diazepam (Valium Tab(*)) 2.5 mg PO BID [facility] Gabapentin (Neurontin Cap(*)) 300 mg PO BID HI Gabapentin (Neurontin Cap(*)) 600 mg PO BEDTIME [facility] Insulin Human Lispro (Humalog*) 0 units SUBCUT ACHS [facility]; Protocol Methylprednisolone Sodium Succinate (Solu-Medrol 125mg *) 60 mg IV Q8H [facility] Metoprolol Tartrate (Lopressor Tab*) 12.5 mg PO BID [facility] Mometasone Furoate/Formoterol Fumar (Dulera 200/5 Mdi*) 2 puff INH BID [facility]; Protocol Morphine Sulfate (Morphine Inj (Syringe)*) 2 mg IV Q4H PRN PRN Reason: PAIN Oxycodone HCl (Roxycodone Tab*) 5 mg PO BID [facility] Oxycodone/Acetaminophen (Percocet 5/325 Tab*) 1 tab PO BID [facility] Ropinirole HCl (Requip Tab*) 1 mg PO BID [facility] Vital Signs - 8 hr 01/29/18 01/29/18 01/29/18 05:41 05:50 06:18 Temperature Pulse Rate 83 Respiratory 30 20 30 Rate Blood Pressure (mmHg) O2 Sat by Pulse 99 Oximetry 01/29/18 01/29/18 01/29/18 08:26 08:57 09:00 Temperature Pulse Rate 76 90 81 Respiratory Rate Blood Pressure 168/75 (mmHg) O2 Sat by Pulse 94 89 88 Oximetry 01/29/18 01/29/18 01/29/18 09:26 10:00 10:14 Temperature Pulse Rate 76 90 74 Respiratory Rate Blood Pressure 141/76 114/68 (mmHg) O2 Sat by Pulse 83 83 88 Oximetry 01/29/18 01/29/18 01/29/18 10:26 11:01 11:38 Temperature 98.4 F Pulse Rate 82 80 92 Respiratory 20 26 Rate Blood Pressure 144/78 141/76 (mmHg) O2 Sat by Pulse 91 91 82 Oximetry 01/29/18 12:39 Temperature Pulse Rate Respiratory 22 Rate Blood Pressure (mmHg) O2 Sat by Pulse Oximetry Oxygen Devices in Use Now: High Flow Nasal Cannula Result Diagrams: 01/29/18 05:44 01/29/18 05:44 Assess/Plan/Problems-Billing Assessment:
[2018-01-29] MEDS: Morphine INJ* 2 MG/ML 1 ML SYRINGE (TWO MG - NEW SYRINGE VERSION) IV PRN ×3 (13:32→22:32)
[2018-01-29] MEDS: Acetylcysteine CAP (RENAL)* 600 MG PO SCH ×2 (13:32→20:03)
[2018-01-29] MEDS: Insulin LISPRO* 1 UNITS UNIT SUBCUT SCH ×3 (14:17→21:26)
--- NOTE | 2018-01-29 15:47 | ECHO ---
Patient: AIDEN GALINDO [facility] Rec#: [id number] : 1945 Date: 01/29/2018 Age: 72y Height: 163 cm / 64.2 in Weight: 91 kg / 200.6 lbs Sex: F BSA: 1.96 Room#: [facility] Admit Date#: 01/29/2018 Type: Inpatient Referring: Quinn Allan Reading: Jose Alfredo Hahn MD Land Examiner: Emerita Chavez,GAGECS,RDMS CC: Lidia Marrero MD Transthoracic Echocardiogram Indication: TIA BP: 141/76 HR: 57 Rhythm: NSR Findings History: TAVR, AOV stenosis, CHF, IL, HTN, HLD, PVD, CVA, AFIB, COPD Technical Comments: The study quality is good. Left Ventricle: The left ventricular chamber size is normal. Moderate concentric left ventricular hypertrophy is observed. Global left ventricular wall motion and contractility are within normal limits. The estimated ejection fraction is 55-60%. Abnormal left ventricular diastolic function is observed. The patient was unable to perform a Valsalva maneuver. Left Atrium: The left atrium is mild to moderately dilated. Right Ventricle: The right ventricle is mildly dilated. The right ventricular global systolic function is normal. Right Atrium: The right atrium is mild to moderately dilated. The bubble study is negative. A patent foramen ovale is not demonstrated with color Doppler and agitated contrast. Aortic Valve: The aortic valve structure is not well visualized. Systolic excursion of the aortic valve is normal. There is a trace of aortic regurgitation. The mean gradient of the aortic valve is 20 mmHg. The aortic valve area, by VTI's, is calculated at 1.3 cm2. The prosthetic aortic valve leaflets are normal. The bio-prosthetic aortic valve appears to be functioning normally. TAVR Mitral Valve: There is mitral annular calcification. The mitral valve leaflets are mildly thickened. There is a trace of mitral regurgitation. There is no evidence of mitral stenosis. Tricuspid Valve: The tricuspid valve leaflets are normal. There is trace to mild tricuspid regurgitation. There is evidence of moderate pulmonary hypertension. Pulmonic Valve: The pulmonic valve structure is not well visualized. There is no evidence of pulmonic valve thickening. There is a trace pulmonic regurgitation. Pericardium: There is no significant pericardial effusion. Aorta: There is mild dilatation of the ascending aorta. The aortic arch is not well visualized. There is no dilation of the aortic root. Pulmonary Artery: The main pulmonary artery is not well visualized. Venous: The inferior vena cava is dilated. There is an approximate 50% respiratory change in the inferior vena cava dimension. Contrast: Intravenous agitated saline contrast was used to assess intracardiac shunting. Summary: There are no significant changes when compared to the previous study done on 11/19/17 Conclusions Moderate concentric left ventricular hypertrophy is observed. Global left ventricular wall motion and contractility are within normal limits. The estimated ejection fraction is 55-60%. Abnormal left ventricular diastolic function is observed. The right ventricular global systolic function is normal. A patent foramen ovale is not demonstrated with color Doppler and agitated contrast. The bio-prosthetic aortic valve appears to be functioning normally. TAVR The mean gradient of the aortic valve is 20 mmHg. There is a trace of mitral regurgitation. There is trace to mild tricuspid regurgitation. There is no significant pericardial effusion. There are no significant changes when compared to the previous study done on 11/19/17 Measurements Name Value Normal Range RVIDd (AP) 2D 3.9 cm (0.9 - 2.6) RVDdMajor (2D) 3.2 cm (2.2 - 4.4) RAd ISD 4CH 5.9 cm (3.4 - 4.9) RA (A4C)W 5.1 cm (2.9 - 4.6) IVSd (2D) 1.6 cm (0.6 - 1) LVPWd (2D) 1.5 cm (0.6 - 1) LVIDd (2D) 4.1 cm (3.6 - 5.4) LVIDs (2D) 2.5 cm - LV FS (2D) 40 % (25 - 45) Aortic Annulus 1.9 cm (1.4 - 2.6) Ao root diameter (2D) 3.1 cm (2.1 - 3.5) Ascending Ao 3.7 cm (2.1 - 3.4) LA dimension (AP) 2D 5.1 cm (2.3 - 3.8) LAd ISD 4CH 5.9 cm (2.9 - 5.3) LA ISD 4CH W 4.7 cm (2.5 - 4.5) Name Value Normal Range LA ESV BP (A/L) index 39 ml/m2 - Name Value Normal Range MV E-wave Vmax 1.3 m/sec - MV deceleration time 224 msec - MV A-wave Vmax 1.4 m/sec - MV E:A ratio 0.9 ratio - P. vein S-wave Vmax 0.5 m/sec - P. vein D-wave Vmax 0.3 m/sec - P. vein S:D Vmax ratio 1.3 ratio - P. vein A-wave duration 108 msec - LV septal e' Vmax 0.05 m/sec - LV lateral e' Vmax 0.05 m/sec - LV E:e' septal ratio 26 ratio - LV E:e' lateral ratio 26 ratio - Name Value Normal Range AV Vmax 2.9 m/sec - AV VTI 69 cm - AV peak gradient 34 mmHg - AV mean gradient 20 mmHg - LVOT diameter 2 cm - LVOT Vmax 1.2 m/sec - LVOT VTI 28 cm - LVOT peak gradient 6 mmHg - LVOT mean gradient 3 mmHg - DOI (VTI) 0.4 ratio - RUBIA (continuity Vmax) 1.3 cm2 - RUBIA (continuity VTI) 1.3 cm2 - Name Value Normal Range MV Vmax 1.6 m/sec - MV VTI 45 cm - MV peak gradient 10 mmHg - MV mean gradient 5 mmHg - MV PHT 77 msec - MVA (PHT) 2.9 cm2 - MVA (continuity VTI) 1.8 cm2 - Name Value Normal Range TR Vmax 3.3 m/sec - TR peak gradient 44 mmHg - RAP 8 mmHg - RVSP 52 mmHg - IVC diameter 2.4 cm - Name Value Normal Range PV Vmax 0.9 m/sec - PV peak gradient 3.2 mmHg -
[2018-01-29] MEDS ORDERED: HYDROmorphone INJ* 0.5 MG/0.5 ML SYRINGE IV SLOW PU PRN (16:43)
[2018-01-29] MEDS: methylPREDNISolone 125 MG* 2 ML VIAL IV SCH (17:08)
[2018-01-29] MEDS ORDERED: Gabapentin CAP(*) 300 MG PO ONE (19:00)
[2018-01-29] MEDS: oxyCODONE TAB* 5 MG TAB PO PRN ×2 (19:09→22:11)
[2018-01-29] MEDS: Diazepam TAB(*) 5 MG PO SCH ×2 (19:58→20:00)
[2018-01-29] MEDS: rOPINIRole TAB* 1 MG PO SCH (20:01)
[2018-01-29] MEDS: Apixaban* 5 MG TAB PO SCH (20:01)
[2018-01-29] MEDS: Metoprolol Tartrate TAB* 25 MG PO SCH (20:01)
[2018-01-29] MEDS: Gabapentin CAP(*) 300 MG PO SCH (20:02)
[2018-01-29] MEDS: Mometasone/Formoter 200/5 MDI INH SCH (20:13)
[2018-01-29] MEDS ORDERED: oxyCODONE/Acetamin 5/325 MG* TAB PO SCH (21:00)
[2018-01-29] MEDS ORDERED: Gabapentin CAP(*) 300 MG PO SCH (21:00)
[2018-01-29] MEDS ORDERED: oxyCODONE TAB* 5 MG TAB PO SCH (21:00)
[2018-01-29] MEDS ORDERED: oxyCODONE/Acetamin 10/325(NF) TAB PO SCH (21:00)
[2018-01-29] MEDS: HYDROmorphone INJ1* 1 MG/ML SYRINGE IV SLOW PU PRN (23:03)
[2018-01-30] MEDS: methylPREDNISolone 125 MG* 2 ML VIAL IV SCH ×3 (00:59→20:11)
[2018-01-30] MEDS: oxyCODONE TAB* 5 MG TAB PO PRN ×4 (01:03→23:04)
[2018-01-30] MEDS: Albuterol/Ipratropium NEB.SOL* Albuterol 2.5 MG/Ipratropium 0.5 MG 3 ML INH SCH ×5 (01:48→19:57)
[2018-01-30] MEDS: Morphine INJ* 2 MG/ML 1 ML SYRINGE (TWO MG - NEW SYRINGE VERSION) IV PRN ×3 (03:03→23:56)
[2018-01-30] MEDS ORDERED: HYDROmorphone INJ1* 1 MG/ML SYRINGE IV ONE (03:23)
[2018-01-30] MEDS ORDERED: HYDROmorphone INJ1* 1 MG/ML SYRINGE ONE (03:35)
[2018-01-30] MEDS: Acetaminophen TAB* 325 MG PO SCH ×4 (05:17→23:04)
[2018-01-30 05:57] LABS: Hematocrit 37 % (35-47); Hemoglobin 12.2 g/dl (12.0-16.0); Mean Corpuscular HGB Conc 33 g/dl (31-36); Mean Corpuscular Hemoglobin 31 pg (27-31); Mean Corpuscular Volume 93 fL (80-97); Mean Platelet Volume 8.3 um3 (7.4-10.4); Platelet Count 139 10^3/ul (150-450); Red Blood Count 3.95 10^6/ul (4.00-5.40); Red Cell Distribution Width 14 % (10.5-15); White Blood Count 6.3 10^3/ul (3.5-10.8)
[2018-01-30 06:18] LABS: EGFR Non-African American 102.8 (>60)
[2018-01-30] MEDS: Mometasone/Formoter 200/5 MDI INH SCH ×2 (07:38→19:57)
[2018-01-30] MEDS ORDERED: Magnesium Sulfate 1 GM IV* 1 GM/100 ML BAG IV ONE (08:30)
[2018-01-30] MEDS ORDERED: Clopidogrel TAB* 75 MG PO SCH (09:00)
[2018-01-30] MEDS: Insulin LISPRO* 1 UNITS UNIT SUBCUT SCH ×4 (09:09→20:25)
[2018-01-30] MEDS: HYDROmorphone INJ1* 1 MG/ML SYRINGE IV SLOW PU PRN (09:10)
[2018-01-30] MEDS: Diazepam TAB(*) 5 MG PO SCH ×4 (09:12→20:16)
[2018-01-30] MEDS: Metoprolol Tartrate TAB* 25 MG PO SCH ×2 (09:13→20:14)
[2018-01-30] MEDS: rOPINIRole TAB* 1 MG PO SCH ×3 (09:14→20:17)
[2018-01-30] MEDS: Gabapentin CAP(*) 300 MG PO SCH ×3 (09:14→20:16)
[2018-01-30] MEDS: Apixaban* 5 MG TAB PO SCH ×2 (09:14→20:16)
[2018-01-30] MEDS: Hydrochlorothiazide TAB* 25 MG PO SCH (09:14)
[2018-01-30] MEDS: Acetylcysteine CAP (RENAL)* 600 MG PO SCH ×2 (09:16→20:14)
--- NOTE | 2018-01-30 15:07 | PN ---
Subjective Date of Service: 01/30/18 Interval History: Patient feeling improved SOB and leg pain today. Describes leg pain as restlessness as opposed to pain but does have significant allodynia in feet and ankles. Patient denies F/C, N/V, CP, Abdominal pain, diarrhea, dysuria, dizziness on standing, or other pain. Pain improved greatly after medication adjustments. Patient states that she was recently increased to 4L NC at all times at home. Patient has never seen a member of congress. Family History: Unchanged from Admission Social History: Unchanged from Admission Past Medical History: Unchanged from Admission Objective Active Medications: Acetaminophen (Tylenol Tab*) 650 mg PO Q6H [facility] Last Admin: 01/30/18 11:48 Dose: 650 mg Acetylcysteine (Acetylcysteine Cap (Renal)*) 1,200 mg PO BID [facility] Stop: 01/30/18 21:01 Last Admin: 01/30/18 09:16 Dose: 1,200 mg Albuterol (Ventolin 2.5 Mg/3 Ml Neb.Marjorie*) 2.5 mg INH Q4H PRN PRN Reason: SOB/WHEEZING Albuterol/Ipratropium (Duoneb (Albuterol 2.5 Mg/Ipratropium 0.5 Mg)) 1 neb INH [id number] [facility]WAKE [facility] Last Admin: 01/30/18 14:16 Dose: Not Given Apixaban (Eliquis*) 5 mg PO BID [facility] Last Admin: 01/30/18 09:14 Dose: 5 mg Dextrose (D50w Syringe 50 Ml*) 12.5 gm IV PUSH .FOR FS < 60 - SS PRN PRN Reason: FS < 60 Diazepam (Valium Tab(*)) 5 mg PO BID [facility] Last Admin: 01/30/18 09:31 Dose: 5 mg Gabapentin (Neurontin Cap(*)) 600 mg PO TID [facility] Last Admin: 01/30/18 13:14 Dose: 600 mg Hydrochlorothiazide (Hydrodiuril Tab*) 25 mg PO DAILY [facility] Last Admin: 01/30/18 09:14 Dose: 25 mg Hydromorphone HCl (Dilaudid Inj1s*) 0.5 mg IV SLOW PU Q6H PRN PRN Reason: PAIN Last Admin: 01/30/18 09:10 Dose: 0.5 mg Insulin Human Lispro (Humalog*) 0 units SUBCUT ACHS [facility]; Protocol Last Admin: 01/30/18 12:32 Dose: 3 units Methylprednisolone Sodium Succinate (Solu-Medrol 125mg *) 60 mg IV Q8H [facility] Last Admin: 01/30/18 09:16 Dose: 60 mg Metoprolol Tartrate (Lopressor Tab*) 12.5 mg PO BID [facility] Last Admin: 01/30/18 09:13 Dose: 12.5 mg Mometasone Furoate/Formoterol Fumar (Dulera 200/5 Mdi*) 2 puff INH BID [facility]; Protocol Last Admin: 01/30/18 07:38 Dose: 2 puff Morphine Sulfate (Morphine Inj ((Syringe))*) 2 mg IV Q4H PRN PRN Reason: PAIN Last Admin: 01/30/18 07:21 Dose: 2 mg Oxycodone HCl (Roxycodone Tab*) 5 mg PO Q3H PRN PRN Reason: PAIN Last Admin: 01/30/18 07:20 Dose: 5 mg Ropinirole HCl (Requip Tab*) 1 mg PO TID [facility] Last Admin: 01/30/18 13:14 Dose: 1 mg Vital Signs - 8 hr 01/30/18 01/30/18 01/30/18 07:20 07:21 07:23 Temperature 97.7 F Pulse Rate 63 Respiratory 18 18 18 Rate Blood Pressure 188/78 (mmHg) O2 Sat by Pulse 93 Oximetry 01/30/18 01/30/18 01/30/18 07:42 09:10 09:14 Temperature Pulse Rate 67 Respiratory 16 20 20 Rate Blood Pressure (mmHg) O2 Sat by Pulse 93 Oximetry 01/30/18 01/30/18 01/30/18 09:31 10:27 11:38 Temperature 97.7 F Pulse Rate 53 Respiratory 20 20 20 Rate Blood Pressure (mmHg) O2 Sat by Pulse 93 Oximetry 01/30/18 01/30/18 01/30/18 11:46 11:47 11:53 Temperature Pulse Rate Respiratory 16 16 Rate Blood Pressure 126/58 (mmHg) O2 Sat by Pulse Oximetry 01/30/18 01/30/18 12:10 13:14 Temperature Pulse Rate Respiratory 19 16 Rate Blood Pressure (mmHg) O2 Sat by Pulse Oximetry Oxygen Devices in Use Now: Nasal Cannula Appearance: Patient is a 72yo female who appears stated age and is sitting in the bed in NAD. Eyes: No Scleral Icterus, PERRLA Ears/Nose/Mouth/Throat: NL Teeth, Lips, Gums, Clear Oropharnyx, Mucous Membranes Moist, - - Facial Edema. Neck: NL Appearance and Movements; NL JVP, Trachea Midline Respiratory: Symmetrical Chest Expansion and Respiratory Effort, - - Expiratory Wheezes throughout. Cardiovascular: NL Sounds; No Murmurs; No JVD, RRR, No Edema Abdominal: NL Sounds; No Tenderness; No Distention, No Hepatosplenomegaly Lymphatic: No Cervical Adenopathy Extremities: No Clubbing, Cyanosis, - - Slight edema in B/L LE. Left more than right. Skin: No Rash or Ulcers, No Nodules or Sclerosis Neurological: Alert and Oriented x 3, NL Sensation, NL Muscle Strength and Tone , - - CN II-XII intact. Result Diagrams: 01/30/18 05:43 01/30/18 05:43 Assess/Plan/Problems-Billing Assessment: Patient is a 72yo female with a PMH for COPD with chronic respiratory failure, Afib, RLS, DM II, HFpEF, who presents with COPD exacerbation without signs of fluid overload who is improving on steroids and Nebulizers. - Patient Problems (1) COPD (chronic obstructive pulmonary disease) Current Visit: No Status: Chronic Priority: High Code(s): J44.9 - CHRONIC OBSTRUCTIVE PULMONARY DISEASE, UNSPECIFIED SNOMED Code(s): 22149299 Comment: Exacerbation with acute on chronic respiratory failure. Improving. Now on 4L O2 which was patient's recent home dose, however this increase may have been due to part of same disease process. (2) Afib Current Visit: No Status: Chronic Priority: High Code(s): I48.91 - UNSPECIFIED ATRIAL FIBRILLATION SNOMED Code(s): 05530428 Comment: Sinus at this time, rate controlled Continue Eliquis and BB (3) Restless leg syndrome Current Visit: No Status: Chronic Comment: Causing significant distress in conjunction with neuropathy. Increase requip and gabapentin. (4) Aortic stenosis Current Visit: No Status: Chronic Priority: High Code(s): I35.0 - NONRHEUMATIC AORTIC (VALVE) STENOSIS SNOMED Code(s): 06822564 Comment: TAVR in 08/2017 with normally functioning valve on cath. (5) CHF (congestive heart failure) Current Visit: No Status: Chronic Priority: High Code(s): I50.9 - HEART FAILURE, UNSPECIFIED SNOMED Code(s): 34520926 Comment: No signs of exacerbation. BNP 67. Diurese as needed going forward. (6) Diabetes Current Visit: No Status: Chronic Priority: High Code(s): E11.9 - TYPE 2 DIABETES MELLITUS WITHOUT COMPLICATIONS SNOMED Code(s): 29562809 Comment: Moderate control. SSI May resume Metformin 3 days after contrast study. On high dose steroids. (7) HTN (hypertension) Current Visit: No Status: Chronic Priority: High Code(s): I10 - ESSENTIAL (PRIMARY) HYPERTENSION SNOMED Code(s): 88397168 Comment: Controlled with addition of HCTZ. Continue metoprolol. (8) History of CVA (cerebrovascular accident) Current Visit: No Status: Chronic Priority: High Code(s): Z86.73 - PRSNL HX OF TIA (TIA), AND CEREB INFRC W/O RESID DEFICITS SNOMED Code(s): 246187105 Comment: Continue with secondary prevention with ASA No new deficits, No evidence of stenosis on CTA. Will not treat as TIA. (9) Hypothyroidism Current Visit: No Status: Chronic Code(s): E03.9 - HYPOTHYROIDISM, UNSPECIFIED SNOMED Code(s): 16675643 Comment: TSH WNL. Not on Levothyroxine. (10) DVT prophylaxis Current Visit: No Status: Acute Priority: High Code(s): QJV6490 - SNOMED Code(s): 317640574 Comment: Eliquis Status and Disposition: Inpatient.
[2018-01-31] MEDS: HYDROmorphone INJ1* 1 MG/ML SYRINGE IV SLOW PU PRN (01:06)
[2018-01-31] MEDS: Acetaminophen TAB* 325 MG PO SCH ×3 (05:39→17:33)
[2018-01-31 06:37] LABS: EGFR Non-African American 90.1 (>60)
[2018-01-31] MEDS: Mometasone/Formoter 200/5 MDI INH SCH ×2 (07:28→19:31)
[2018-01-31] MEDS: Insulin LISPRO* 1 UNITS UNIT SUBCUT SCH ×4 (08:06→20:43)
[2018-01-31] MEDS: Gabapentin CAP(*) 300 MG PO SCH ×3 (08:46→20:42)
[2018-01-31] MEDS: Hydrochlorothiazide TAB* 25 MG PO SCH (08:47)
[2018-01-31] MEDS: rOPINIRole TAB* 1 MG PO SCH (08:47)
[2018-01-31] MEDS: Diazepam TAB(*) 5 MG PO SCH ×2 (08:47→20:42)
[2018-01-31] MEDS: Apixaban* 5 MG TAB PO SCH ×2 (08:47→20:42)
[2018-01-31] MEDS: oxyCODONE TAB* 5 MG TAB PO PRN ×4 (08:48→17:32)
[2018-01-31] MEDS: methylPREDNISolone 125 MG* 2 ML VIAL IV SCH (08:49)
[2018-01-31] MEDS: Metoprolol Tartrate TAB* 25 MG PO SCH ×2 (08:50→20:43)
[2018-01-31] MEDS ORDERED: LORazepam INJ* 2 MG/ML 1 ML VIAL IV PUSH PRN (11:18)
[2018-01-31] MEDS ORDERED: Acetaminophen TAB* 325 MG PO SCH (12:00)
--- NOTE | 2018-01-31 12:51 | RAD ---
INDICATION: Pleuritic chest pain COMPARISON: Most recent comparison chest x-rays dated January 29, 2018 TECHNIQUE: Single AP portable view of the chest was obtained. FINDINGS: Image quality is compromised due to the relative inferiority of a portable chest x-ray. Again noted is a prosthetic aortic valve. The heart and mediastinum exhibit normal size and contour. Similar to prior chest x-rays there are increased interstitial markings which could be seen in the setting of pulmonary vascular engorgement or chronic interstitial lung disease. Overall there is improved aeration when compared to the January 29, 2018 chest x-ray. There is no evidence of a large pleural effusion. Visualized bones are normal for the patient's age. IMPRESSION: Persistently increased interstitial markings could be seen in the setting of pulmonary edema acutely or interstitial lung disease more chronically. Overall aeration appears slightly improved when compared to January 29, 2018 chest x-ray.
[2018-01-31] MEDS: Albuterol/Ipratropium NEB.SOL* Albuterol 2.5 MG/Ipratropium 0.5 MG 3 ML INH SCH ×2 (13:05→19:33)
[2018-01-31] MEDS ORDERED: Furosemide IV* 10 MG/ML 2 ML VIAL (20 MG) IV SLOW PU ONE (13:30)
[2018-01-31] MEDS: Clopidogrel TAB* 75 MG PO SCH (14:13)
--- NOTE | 2018-01-31 17:00 | PN ---
Subjective Date of Service: 01/31/18 Interval History: Patient is feeling better with her breathing. Leg pain is still an issue and is much worse at night. Patient having pleuritic chest pain only with very deep breaths. Patient denies F/C, N/V, abdominal pain, diarrhea, dysuria, dizziness on standing, or other pain. Family History: Unchanged from Admission Social History: Unchanged from Admission Past Medical History: Unchanged from Admission Objective Active Medications: Acetaminophen (Tylenol Tab*) 975 mg PO 0200,1000,1800 [facility] Albuterol (Ventolin 2.5 Mg/3 Ml Neb.Marjorie*) 2.5 mg INH Q4H PRN PRN Reason: SOB/WHEEZING Albuterol/Ipratropium (Duoneb (Albuterol 2.5 Mg/Ipratropium 0.5 Mg)) 1 neb INH RT.[id number] AWAKE [facility] Last Admin: 01/31/18 13:05 Dose: Not Given Apixaban (Eliquis*) 5 mg PO BID [facility] Last Admin: 01/31/18 08:47 Dose: 5 mg Clopidogrel Bisulfate (Plavix Tab*) 75 mg PO DAILY [facility] Last Admin: 01/31/18 14:13 Dose: 75 mg Dextrose (D50w Syringe 50 Ml*) 12.5 gm IV PUSH .FOR FS < 60 - SS PRN PRN Reason: FS < 60 Diazepam (Valium Tab(*)) 5 mg PO BID [facility] Last Admin: 01/31/18 08:47 Dose: 5 mg Gabapentin (Neurontin Cap(*)) 600 mg PO TID [facility] Last Admin: 01/31/18 13:19 Dose: 600 mg Hydrochlorothiazide (Hydrodiuril Tab*) 25 mg PO DAILY [facility] Last Admin: 01/31/18 08:47 Dose: 25 mg Insulin Human Lispro (Humalog*) 0 units SUBCUT ACHS [facility]; Protocol Last Admin: 01/31/18 13:20 Dose: 2 units Lorazepam (Ativan Inj*) 1 mg IV PUSH ONCE PRN PRN Reason: ANXIETY Last Admin: 01/31/18 12:02 Dose: 1 mg Metoprolol Tartrate (Lopressor Tab*) 12.5 mg PO BID [facility] Last Admin: 01/31/18 08:50 Dose: 12.5 mg Mometasone Furoate/Formoterol Fumar (Dulera 200/5 Mdi*) 2 puff INH BID [facility]; Protocol Last Admin: 01/31/18 07:28 Dose: 2 puff Oxycodone HCl (Roxycodone Tab*) 10 mg PO Q4H PRN PRN Reason: PAIN Prednisone (Deltasone Tab*) 60 mg PO DAILY [facility] Ropinirole HCl (Requip Tab*) 2 mg PO BEDTIME HI Ropinirole HCl (Requip Tab*) 1 mg PO DAILY [facility] Vital Signs - 8 hr 01/31/18 01/31/18 01/31/18 11:33 12:02 13:18 Temperature 98.5 F Pulse Rate 70 Respiratory 24 16 20 Rate Blood Pressure 170/73 (mmHg) O2 Sat by Pulse 92 Oximetry 01/31/18 01/31/18 01/31/18 13:19 13:21 15:14 Temperature 98.1 F Pulse Rate 38 Respiratory 20 20 18 Rate Blood Pressure 146/73 (mmHg) O2 Sat by Pulse 93 Oximetry Oxygen Devices in Use Now: Nasal Cannula Appearance: Patient is a 72yo female who appears stated age and is sitting in the bed in [facility]. Eyes: No Scleral Icterus, PERRLA Ears/Nose/Mouth/Throat: NL Teeth, Lips, Gums, Clear Oropharnyx, Mucous Membranes Moist Neck: NL Appearance and Movements; NL JVP, Trachea Midline Respiratory: Symmetrical Chest Expansion and Respiratory Effort, - - Expiratory Wheezes throughout. Cardiovascular: NL Sounds; No Murmurs; No JVD, RRR, - - 1+ edema in B/L LE. Abdominal: NL Sounds; No Tenderness; No Distention, No Hepatosplenomegaly Lymphatic: No Cervical Adenopathy Extremities: No Clubbing, Cyanosis Skin: No Rash or Ulcers, No Nodules or Sclerosis Neurological: Alert and Oriented x 3, NL Sensation, NL Muscle Strength and Tone , - - Diffusely weak without focality. Possible difficulty making words. Reflexes and Cerebellar testing WNL. Smile and forhead wrinkle symmetric. Result Diagrams: 01/30/18 05:43 01/31/18 05:25 Assess/Plan/Problems-Billing Assessment: Patient is a 72yo female with a PMH for COPD with chronic respiratory failure, Afib, RLS, DM II, HFpEF, who presents with COPD exacerbation without signs of fluid overload who is improving on steroids and Nebulizers. - Patient Problems (1) COPD (chronic obstructive pulmonary disease) Current Visit: No Status: Chronic Priority: High Code(s): J44.9 - CHRONIC OBSTRUCTIVE PULMONARY DISEASE, UNSPECIFIED SNOMED Code(s): 70585138 Comment: Exacerbation with acute on chronic respiratory failure. Improving. Now on 4L O2 which was patient's recent home dose, however this increase may have been due to part of same disease process. Continue Prednisone PO, Scheduled Inhalers. (2) Afib Current Visit: No Status: Chronic Priority: High Code(s): I48.91 - UNSPECIFIED ATRIAL FIBRILLATION SNOMED Code(s): 76506031 Comment: Sinus at this time, rate controlled Continue Eliquis and BB (3) Restless leg syndrome Current Visit: No Status: Chronic Comment: Causing significant distress in conjunction with neuropathy. Increase requip and gabapentin. Slightly improved. Worst symptoms at night. (4) Aortic stenosis Current Visit: No Status: Chronic Priority: High Code(s): I35.0 - NONRHEUMATIC AORTIC (VALVE) STENOSIS SNOMED Code(s): 65782223 Comment: TAVR in 08/2017 with normally functioning valve on cath. (5) CHF (congestive heart failure) Current Visit: No Status: Chronic Priority: High Code(s): I50.9 - HEART FAILURE, UNSPECIFIED SNOMED Code(s): 61967947 Comment: Possible Pulmonary edema on CXR. Edema in LE. Will trial lasix despite low BNP. HFpEF. Follow Daily Weights and Strict I/O. (6) Diabetes Current Visit: No Status: Chronic Priority: High Code(s): E11.9 - TYPE 2 DIABETES MELLITUS WITHOUT COMPLICATIONS SNOMED Code(s): 70757986 Comment: Moderate control. SSI May resume Metformin 3 days after contrast study. On high dose steroids. (7) HTN (hypertension) Current Visit: No Status: Chronic Priority: High Code(s): I10 - ESSENTIAL (PRIMARY) HYPERTENSION SNOMED Code(s): 39720830 Comment: Better controlled with addition of HCTZ. Continue metoprolol. (8) History of CVA (cerebrovascular accident) Current Visit: No Status: Chronic Priority: High Code(s): Z86.73 - PRSNL HX OF TIA (TIA), AND CEREB INFRC W/O RESID DEFICITS SNOMED Code(s): 633577896 Comment: Continue with secondary prevention with Plavix. Aspirin Allergy. No new definitive deficits, No evidence of stenosis on CTA. Relates episode of head pain with difficulty with forming words 3 weeks ago. Relates other deficit as forehead numbness bilaterally. No other focal deficits on exam. Maximize medical therapy and secondary prevention. LDL 222. Will start patient on statin. Patient refuses MRI. (9) Hypothyroidism Current Visit: No Status: Chronic Code(s): E03.9 - HYPOTHYROIDISM, UNSPECIFIED SNOMED Code(s): 79445295 Comment: TSH WNL. Not on Levothyroxine. (10) DVT prophylaxis Current Visit: No Status: Acute Priority: High Code(s): VGY8397 - SNOMED Code(s): 953641899 Comment: Eliquis Status and Disposition: Inpatient.
[2018-01-31] MEDS ORDERED: Atorvastatin* 40 MG TAB PO SCH (21:00)
[2018-01-31] MEDS ORDERED: rOPINIRole TAB* 1 MG PO SCH (21:00)
[2018-02-01] MEDS: oxyCODONE TAB* 5 MG TAB PO PRN (01:29)
[2018-02-01] MEDS: Acetaminophen TAB* 325 MG PO SCH ×2 (01:29→10:14)
[2018-02-01 06:22] LABS: ABS Basophils 0.1 10^3/ul (0-0.2); ABS Eosinophils 0 10^3/ul (0-0.6); ABS Lymphocytes 2.5 10^3/ul (1.0-4.8); ABS Monocytes 0.8 10^3/ul (0-0.8); ABS Nucleated RBC 0 10^3/ul; Eosinophil % 0.1 % (0-6); Hematocrit 42 % (35-47); Mean Corpuscular HGB Conc 34 g/dl (31-36); Mean Corpuscular Hemoglobin 31 pg (27-31); Mean Corpuscular Volume 93 fL (80-97); Mean Platelet Volume 8.2 um3 (7.4-10.4); Nucleated Red Blood Cells % 0.1; Platelet Count 162 10^3/ul (150-450); Red Blood Count 4.48 10^6/ul (4.00-5.40); Red Cell Distribution Width 14 % (10.5-15); White Blood Count 8.4 10^3/ul (3.5-10.8)
[2018-02-01 06:41] LABS: EGFR Non-African American 64.4 (>60)
[2018-02-01] MEDS: Insulin LISPRO* 1 UNITS UNIT SUBCUT SCH ×2 (07:57→13:17)
[2018-02-01] MEDS: Metoprolol Tartrate TAB* 25 MG PO SCH (08:09)
[2018-02-01] MEDS: Clopidogrel TAB* 75 MG PO SCH (08:10)
[2018-02-01] MEDS: Hydrochlorothiazide TAB* 25 MG PO SCH (08:10)
[2018-02-01] MEDS: Gabapentin CAP(*) 300 MG PO SCH ×2 (08:11→13:18)
[2018-02-01] MEDS: Apixaban* 5 MG TAB PO SCH (08:12)
[2018-02-01] MEDS: Diazepam TAB(*) 5 MG PO SCH (08:12)
[2018-02-01] MEDS ORDERED: predniSONE TAB* 20 MG PO SCH (09:00)
[2018-02-01] MEDS ORDERED: rOPINIRole TAB* 1 MG PO SCH (09:00)
[2018-02-01] MEDS: Mometasone/Formoter 200/5 MDI INH SCH (09:05)
[2018-02-01 13:50] VITALS: BP 109/46
--- NOTE | 2018-02-02 03:56 | DS ---
CC: Dr. Jones, Pulmonology * DISCHARGE SUMMARY: DATE OF ADMISSION: 01/29/18 DATE OF DISCHARGE: 02/01/18 PRIMARY CARE PROVIDER: Lidia Marrero MD MY ATTENDING WHILE IN HOSPITAL: Annelise Mack MD *(DICTATED BY STEVE EATON) PRIMARY DISCHARGE DIAGNOSES: 1. Chronic obstructive pulmonary disease exacerbation. 2. Chronic hypoxic respiratory failure. 3. Hyperlipidemia. 4. Restless leg syndrome. 5. Chronic leg pain. 6. Possible transient ischemic attack. SECONDARY DISCHARGE DIAGNOSES: 1. Atrial fibrillation. 2. Depression. 3. Hypothyroidism. 4. Hypertension. 5. Diabetes. 6. Congestive heart failure with preserved ejection fraction. 7. Seizure disorder. 8. Chronic pain. 9. Gastroesophageal reflux disease. 10. Peripheral vascular disease. 11. Gout. 12. Critical aortic stenosis, status post repair in 2018. 13. Reported history of cerebrovascular accident x4. STUDIES DONE WHILE IN THE HOSPITAL: Chest x-ray from 01/29/18 read as according to the patient's clinical presentation, chest x-ray could be compatible with cardiogenic pulmonary edema. Electrocardiogram from 01/29/18 shows atrial bigeminy, right axis deviation, elevated QTc of 463, mild ST segment abnormalities, no hypertrophy or enlargement. No abnormalities consistent with previous exam. Chest thorax CTA from 01/29/[address] evidence for pulmonary embolism, extensive chronic and degenerative atrophy and changes throughout the body of the report. These include diffuse interlobular emphysematous change, mild degree of ground-glass opacification. There is bronchiectasis dilation of the medium and small airways. Head CTA from read as mild intracranial pathology. No aneurysm, vascular malformation, occlusion, or stenosis, of the visualized intracranial circulation. No internal carotid stenosis by NASCET criteria. Transthoracic echocardiogram from 01/29/18 read as moderate concentric left ventricular hypertrophy is observed, global left ventricular wall motion and contractility are within normal limits, estimated ejection fraction 55% to 60%, abnormal left ventricular diastolic function observed. Right ventricular global systolic function is normal. Patent foramen ovale is not demonstrated. Aortic valve appears to be functioning normally. Mean gradient of the aortic valve is 28 mmHg. There is trace mitral regurgitation. There is trace tricuspid regurgitation and no significant pericardial effusion. There is no significant change when compared to the study on 11/19/17. Chest x-ray from 01/31/18 read as persistently increased interstitial marking could be in the setting of pulmonary edema or interstitial lung disease, more chronically, overall relation appears slightly improved when compared to 01/29/18 chest x-ray. MEDICATIONS AT DISCHARGE: 1. Benadryl 5 mg p.o. daily as needed. 2. Xyzal 5 mg p.o. daily as needed. 3. Diazepam 5 mg p.o. b.i.d. 4. Gabapentin 600 mg p.o. t.i.d. 5. Albuterol 2 puffs inhalation q.4 hours as needed. 6. Symbicort 2 puff inhalation b.i.d. 7. Eliquis 5 mg p.o. b.i.d. 8. Percocet 5/325 one tab p.o. b.i.d. 9. Incruse Ellipta 1 puff daily. 10. Albuterol 2.5 mg inhalation q.4 hours as needed. 11. Atorvastatin 40 mg p.o. q.p.m. 12. Clopidogrel 75 mg p.o. daily. 13. Hydrochlorothiazide 25 mg p.o. daily. 14. Prednisone 60 mg p.o. daily with taper. 15. Ropinirole 2 mg p.o. at bedtime. 16. Ropinirole 1 mg p.o. daily. 17. Metoprolol succinate 25 mg p.o. daily. 18. Metformin 500 mg p.o. b.i.d. New medication at discharge. 1. Ropinirole 1 mg p.o. daily. 2. Ropinirole 2 mg p.o. at bedtime. 3. Metoprolol succinate 25 mg p.o. daily. 4. Metformin 500 mg p.o. b.i.d. 5. Hydrochlorothiazide 25 mg p.o. daily. 6. Gabapentin 600 mg p.o. t.i.d. 7. Clopidogrel 75 mg p.o. daily. 8. Lipitor 40 mg p.o. nightly. 9. Albuterol nebulizer 12.5 mg p.o. q.4 hours as needed. Medications discontinued at discharge 1. Gabapentin 300 mg p.o. b.i.d. 2. Gabapentin 600 mg p.o. at bedtime. 3. Metformin 500 mg p.o. daily. 4. Ropinirole 1 mg p.o. b.i.d. 5. Metoprolol tartrate 12.5 mg p.o. b.i.d. HOSPITAL COURSE: This is a brief summary of the patient's presentation. For more details, please see the history and physical from Dr. Quinn Allan. Briefly, the patient is 72-year-old female with past medical history significant for the above who presented with 1 month of worsening cough, which got significantly worse 1 week prior to admission with the need to increase her chronic oxygen level to 4 L at all times when she was previously on lower doses as needed, but she could not clarify. The patient also on the day of admission had worsening of her chronic pain in her legs and significant worsening of her restless leg syndrome, which was not responsive to her Requip. The patient states the pain was severe. The patient states that 2 weeks before discharge, she had an episode with pain across the top of her head, which was severe and was accompanied with what she called difficulty forming her words that had resolved by the time of her presentation. The patient stated she was still having numbness bilaterally across the top of her head that had been there since her headache. The patient states she has had 4 strokes before and they mainly affected her left side. The patient had a CT and CTA of her head, which were negative as above. The patient was attempted to be sent for an MRI of her brain; but due to extreme claustrophobia, she was unable to tolerate this and it was canceled even with benzodiazepine for her anxiety. The patient was found to be hypoxic on her 4 L and had increased oxygen demand. The patient had negative CT of her chest, but it did show ground-glass opacities, which were not present on previous exam. No infiltrates on her chest x-ray. The patient was started on Solu-Medrol IV, scheduled DuoNebs. The patient had a BNP of [address] scan did not show concern for pulmonary edema. The patient had transthoracic echocardiogram read as above. The patient improved on the above interventions for her COPD being able to be weaned down to 4 L of home oxygen. The patient did not need positive pressure ventilation. The patient's pain was much better controlled upon increasing of her Requip as the above as well as changing her gabapentin to 600 mg p.o. 3 times daily. The patient was able to ambulate approximately 20 feet with slight shortness of breath with physical therapy, which is not significantly worse than her baseline according to the patient. The patient had persistent expiratory wheezes in her lungs, but these improved greatly over the course of her hospitalization. The patient was able to be weaned from IV Solu- Medrol to p.o. prednisone on 01/31/18. The patient was tried again later in her hospitalization to have a repeat MRI of her brain, but this negative. The patient had a lipid profile, which showed a LDL of 212. The patient was started on Lipitor, which she tolerated. The patient was also started on clopidogrel due to her aspirin intolerance and was therefore not a candidate for dual antiplatelet therapy for possible TIA. The patient had no white blood cell count or anemia during hospitalization. The patient had initially slight respiratory acidosis with a hemoglobin of 7.3 on her admission with elevated pCO2 at 59 and 55. These were not repeated. The patient had slight hypomagnesemia, which was replaced. The patient had no other significant laboratory abnormalities. The patient has never seen a pre coder in the past and states she has never had pulmonary function testing to her knowledge. The patient states that her pain was much better controlled by the Requip and the gabapentin and on the day of her discharge, she actually felt that for the first time in long time, she had no pain in her legs. The patient was anxious for discharge home on 02/01/18. The patient was able to ambulate without significant desaturations on her home 4 L of oxygen. The patient's vital signs were otherwise stable and she was discharged on 02/01/18. PHYSICAL EXAM ON DAY OF DISCHARGE: General: The patient is a 72-year-old female who appears stated age, appears quite edematous in her face and sitting in the bed, in no acute distress. HEENT: Head normocephalic, atraumatic. Sclerae anicteric. No conjunctival injection. Nasal mucosa moist. Oral mucosa moist. No pharyngeal erythema, discharge, or exudate. Neck: Supple, nontender. No lymphadenopathy. No carotid bruits auscultated. No JVD. Cardiac : Regular rate and rhythm. No clicks, murmurs, gallops, or rubs. Pulses are 2 + bilaterally on dorsalis pedis, posterior tibialis and radial areas, trace bilateral lower extremity edema noted. Respiratory: Slight expiratory wheezes heard in all lung nelson. No adventitious lung sounds. Significantly improved from previous exam. Abdomen is soft, nontender, nondistended. Bowel sounds are present and normoactive in all 4 quadrants. No hepatosplenomegaly. No abdominal bruits auscultated. No hepatojugular reflux. Genitourinary: No suprapubic or CVA tenderness. Skin: Clean, dry, and intact. No rash. Neuro: Cranial nerves II through XII intact. Decreased strength with plantar flexion of the left foot, which the patient states is chronic from her previous strokes. No other focal deficits. Reflexes are unremarkable. Babinski downgoing bilaterally. Psychiatric: Very pleasant and cooperative. LABORATORY DATA: On the day of discharge, white blood cell count 8.4, hemoglobin 14.0, platelet count 162. Sodium 141, potassium 4.1, chloride 104, carbon dioxide 30, anion gap 7, BUN 37, creatinine 0.87, glucose 105, iron 81, ferritin 45.4. Other laboratory data of note from hospitalization, LDL cholesterol 212, HDL cholesterol 59.6, hemoglobin A1c 6.6. DISCHARGE PLAN: The patient will be discharged to home. The patient will have assistance through her assisted living as well as visiting nurse services. The patient will be setup with nebulizer and should use albuterol nebulizer as needed for shortness of breath. The patient should be maintained on triple inhaler therapy as well as her home oxygen. The patient will be continued on prednisone taper starting with 60 mg daily. The patient will have pain control with Tylenol, gabapentin and Percocet per her outpatient provider. The patient will have control of her restless syndrome with ropinirole. The patient is not iron deficient contributing to this. The patient will have rate control with metoprolol tartrate 25 mg daily. There was concern that the patient had a TIA while in the hospital but her story makes it difficult to evaluate. The patient will be continued on secondary prevention with clopidogrel and Lipitor. The patient is not a candidate dual antiplatelet therapy as she is intolerant to aspirin. The patient should follow up with her primary care within 1 week for general medical management. The patient should follow up with her Dr. Jones of Pulmonology within 1 month for PFTs and evaluation of her ground- glass opacities in her lungs as well as optimization of her pulmonary status. The patient should return to hospital for severe increased shortness of breath, new onset of focal weakness, chest pain, passing out or other alarming symptoms. The patient should have consideration for ongoing low dose CT scanning for early detection of lung cancer given her smoking history. If the patient is able to tolerate in the future time outpatient MRI of the brain should be considered. The patient will be continued on her Eliquis for anticoagulation. The patient will have a consistent carbohydrate, heart- healthy diet without caffeine and have her metformin increased. The patient should engage in activities as tolerated. TIME SPENT: Approximately 75 minutes were spent on the discharge of this patient, 30% of which was spent [id number] with the patient obtaining history and physical and discussing treatment plan. STEVE EATON [id number]/[facility] #: [id number]
== END 2018-02-01 16:05 | disposition home health service (06) | DRG 190 ==
LOC: ED 05:13 → MEDTELE 09:29
PROVIDERS: ADMIT Student in an Organized Health Care Education/Training Program; ATTEND Internal Medicine
DX: J44.1 Chronic obstructive pulmonary disease with (acute) exacerbation (principal); J96.21 Acute and chronic respiratory failure with hypoxia; G45.9 Transient cerebral ischemic attack, unspecified; E87.2 Acidosis; E11.51 Type 2 diabetes mellitus with diabetic peripheral angiopathy without gangrene; I11.0 Hypertensive heart disease with heart failure; I50.9 Heart failure, unspecified; E78.00 Pure hypercholesterolemia, unspecified; G47.30 Sleep apnea, unspecified; I48.91 Unspecified atrial fibrillation; E11.42 Type 2 diabetes mellitus with diabetic polyneuropathy; K21.9 Gastro-esophageal reflux disease without esophagitis; H91.90 Unspecified hearing loss, unspecified ear; M81.0 Age-related osteoporosis without current pathological fracture; F41.9 Anxiety disorder, unspecified; G25.81 Restless legs syndrome; E03.9 Hypothyroidism, unspecified; G40.909 Epilepsy, unspecified, not intractable, without status epilepticus; E78.5 Hyperlipidemia, unspecified; G89.4 Chronic pain syndrome; M10.9 Gout, unspecified; I08.1 Rheumatic disorders of both mitral and tricuspid valves; E83.42 Hypomagnesemia; F17.210 Nicotine dependence, cigarettes, uncomplicated; F32.9 Major depressive disorder, single episode, unspecified; Z85.42 Personal history of malignant neoplasm of other parts of uterus; Z92.3 Personal history of irradiation; Z90.49 Acquired absence of other specified parts of digestive tract; Z86.73 Personal history of transient ischemic attack (TIA), and cerebral infarction without residual deficits; Z90.710 Acquired absence of both cervix and uterus; Z82.49 Family history of ischemic heart disease and other diseases of the circulatory system; Z99.81 Dependence on supplemental oxygen; Z88.1 Allergy status to other antibiotic agents; Z88.0 Allergy status to penicillin; Z88.8 Allergy status to other drugs, medicaments and biological substances; Z83.3 Family history of diabetes mellitus; Z86.14 Personal history of Methicillin resistant Staphylococcus aureus infection; Z95.2 Presence of prosthetic heart valve; Z82.3 Family history of stroke; Z79.84 Long term (current) use of oral hypoglycemic drugs
CPT/HCPCS: 36415; 36600; 70496; 70498; 71045; 71275; 80048; 80053; 80061; 82728; 82803; 83036; 83540; 83550; 83605; 83735; 83880; 84100; 84439; 84443; 84484; 85025; 85027; 93005; 93306; 94640; 99284; A9270-GY; G8978-GP-CI; G8979-GP-CI; J1170; J1630; J1940; J2060; J2270; J2930; J3475; J7512; J7611; Q9967

== ENCOUNTER → 2018-02-07 04:15 | Emergency (ER) | payer MEDICARE, MEDICAID ==
[~2018-02-07 04:15] MED LIST: Bupivacaine 0.5% W/EPI SDV* 30 ML VIAL INJ ONE; Bupivacaine 0.5% W/EPI SDV* 30 ML VIAL ONE; Clindamycin 600 MG IVPREMIX(* 600 MG/50 ML SDV IV ONE; fentaNYL* 50 MCG/ML 2 ML VIAL (100 MCG VIAL) IV SLOW PU ONE; oxyCODONE/Acetamin 5/325 MG* TAB PO ONE
--- NOTE | 2018-02-07 05:15 | ED ---
Bite Injury/Animal - HPI Summary HPI Summary: 72-year-old female from assisted living setting who is well-known to the ER presents with a bug bite and tenderness to the posterior neck. She states this this is been worsening over several days. She has not had any fevers but does take blood thinners. She was placed on antibiotics at the residential. She is diabetic as well and is unsure about her recent blood sugars. She is most concerned with the tenderness in the neck. - History of Current Complaint Chief Complaint: EDNauseaVomitDiarrh Stated Complaint: BUG BITE/NECK PAIN Time Seen by Provider: 02/07/18 04:58 Hx Obtained From: Patient, EMS Pain Intensity: 10 - Allergies/Home Medications Allergies/Adverse Reactions: Allergies Allergy/AdvReac Type Severity Reaction Status Date / Time aspirin Allergy Unknown Verified 02/07/18 04:31 Reaction Details Carbapenems Allergy Unknown Verified 02/07/18 04:31 Reaction Details Cephalosporins Allergy Unknown Verified 02/07/18 04:31 Reaction Details ketorolac Allergy Unknown Verified 02/07/18 04:31 Reaction Details morphine Allergy Unknown Verified 02/07/18 04:31 Reaction Details Penicillins Allergy Unknown Verified 02/07/18 04:31 Reaction Details sulfamethoxazole Allergy Unknown Verified 02/07/18 04:31 [From Bactrim] Reaction Details trimethoprim [From Bactrim] Allergy Unknown Verified 02/07/18 04:31 Reaction Details Home Medications: Home Medications Famciclovir(NF) [Famvir(NF)] 500 mg PO BID 02/07/18 [History Confirmed 02/07/18] cephALEXin [Keflex] 500 mg PO QID 02/07/18 [History Confirmed 02/07/18] PMH/Surg Hx/FS Hx/Imm Hx Previously Healthy: No Endocrine/Hematology History: Reports: Hx Anticoagulant Therapy, Hx Diabetes, Hx Thyroid Disease Denies: Hx Blood Transfusions Cardiovascular History: Reports: Hx Angina, Hx Congestive Heart Failure, Hx Hypercholesterolemia, Hx Hypertension, Hx Peripheral Vascular Disease, Hx Syncope, Other Cardiovascular Problems/Disorders - CHF Denies: Hx Pacemaker/ICD Respiratory History: Reports: Hx Asthma, Hx Chronic Bronchitis, Hx Chronic Obstructive Pulmonary Disease (COPD) - PT ON HOME O2 4 L/MIN, Hx Pneumonia, Hx Pulmonary Edema, Hx Seasonal Allergies, Hx Sleep Apnea Denies: Hx Lung Cancer GI History: Reports: Hx Gastroesophageal Reflux Disease Musculoskeletal History: Reports: Hx Arthritis, Hx Back Problems, Hx Bursitis, Hx Orthopedic Injury, Hx Osteoporosis Denies: Hx Fibromyalgia Sensory History: Reports: Hx Contacts or Glasses, Hx Vision Problem, Hx Hearing Problem - [place] Denies: Hx Hearing Aid Opthamlomology History: Reports: Hx Contacts or Glasses, Hx Vision Problem Neurological History: Reports: Hx CVA Denies: Hx Dementia, Hx Developmental Delay, Hx Headaches, Hx Migraine, Hx Seizures, Hx Spinal Cord Injury, Hx Transient Ischemic Attacks (TIA) Psychiatric History: Reports: Hx Anxiety, Hx Depression Denies: Hx Panic Disorder - Cancer History Cancer Type, Location and Year: Uterine Cancer Hx Chemotherapy: No Hx Radiation Therapy: Yes Hx Palliative Cancer Treatment: No - Surgical History Surgery Procedure, Year, and Place: cholecystectomy, carpal tunnel bilat hands, hysterectomy, heart valve repair/replacement (2018) Hx Anesthesia Reactions: No Infectious Disease History: No Infectious Disease History: Reports: Hx of Known/Suspected MRSA Denies: Traveled Outside the [place] in Last 30 Days - Family History Known Family History: Positive: Hypertension, Diabetes - Social History Alcohol Use: None Alcohol Amount: wine Hx Substance Use: No Substance Use Type: Reports: None Hx Tobacco Use: Yes Smoking Status (MU): Light Every Day Tobacco Smoker Type: Cigarettes Amount Used/How Often: 1/2 pack a day Have You Smoked in the Last Year: Yes Review of Systems Negative: Fever, Chills Negative: Chest Pain Positive: Vomiting, Nausea. Negative: Abdominal Pain Negative: Arthralgia Positive: Other - redness, skin lesion All Other Systems Reviewed And Are Negative: Yes Physical Exam Triage Information Reviewed: Yes Vital Signs On Initial Exam: Initial Vitals Temp Pulse Resp BP Pulse Ox 98.4 F 82 20 177/82 87 02/07/18 04:21 02/07/18 04:21 02/07/18 04:21 02/07/18 04:21 02/07/18 04:21 Vital Signs Reviewed: Yes Appearance: Positive: Well-Appearing - Chronically ill appearing however. Complaining of pain in the posterior neck. Skin: Positive: Warm, Dry, Other - Multiple excoriations throughout her body most notably on her buttock and neck. There is area of redness, induration and two small areas of scabbing in the posterior neck fold. There is no drainage from the area. Head/Face: Positive: Normal Head/Face Inspection Eyes: Positive: Normal, EOMI ENT: Positive: Normal ENT inspection Neck: Positive: Supple, Other: - Localized skin induration and tenderness as above Respiratory/Lung Sounds: Positive: Other - Globally diminished but no wheezes rales or rhonchi Cardiovascular: Positive: RRR Abdomen Description: Positive: Nontender, Soft Musculoskeletal: Positive: Other - Kyphosis Neurological: Positive: Normal, Sensory/Motor Intact, Alert, Oriented to Person Place, Time AVPU Assessment: Alert Procedures - Incision and Drainage posterior neck Site: posterior neck, midline Anesthesia: Local - 0.5% bupivacaine with epinephrine, 5 cc Instrument(s): Needle - aspirated less than 1/2 cc of purulence Packing: Other - prior to any drainage the area was visualized with bedside ultrasound to show very small amount of free fluid. This was aspirated and cultured. Diagnostics - Vital Signs Vital Signs Temp Pulse Resp BP Pulse Ox 02/07/18 04:22 177/82 02/07/18 04:21 98.4 F 77 20 177/82 95 - Laboratory Lab Statement: Any lab studies that have been ordered have been reviewed, and results considered in the medical decision making process. Bite Injury Course/Dx - Course Course Of Treatment: Patient with tiny abscess with surrounding induration and cellulitis in the posterior neck. This likely resulted from neurotic excoriation. She had been on Keflex which is likely not helping if this is MRSA. IV clindamycin was given here and she'll be continued on the same. Started probiotic as well. Warm compresses, treated for pain. Blood sugar nonelevated. Patient had been done given the small amount of purulent seen on bedside ultrasound and also the fact that the patient is on anticoagulant. - Diagnoses Provider Diagnosis: Cutaneous abscess of neck, Diabetes mellitus Discharge - Sign-Out/Discharge Documenting (check all that apply): Patient Departure - Discharge Plan Condition: Improved Disposition: HOME Prescriptions: Clindamycin Cap(NF) [Clindamycin Cap 300 mg Cap(NF)] 300 mg PO TID #21 cap Lactobacillus Acidophilus* 1 cap PO BID #20 cap Patient Education Materials: Abscess (ED) Referrals: Janes GAMING,Lidia Abraham [Primary Care Provider] - Additional Instructions: Warm compresses to the area Do not touch or pick at the area. Return with increased pain, drainage, uncontrolled blood sugar, worse or other concerns. Have this rechecked by your doctor in 2 days' time. - Billing Disposition and Condition Condition: IMPROVED Disposition: Home - Attestation Statements Document Initiated by Scribe: No
[2018-02-07 08:00] VITALS: BP 128/94
--- NOTE | 2018-02-08 07:02 | PN ---
Progress Note - Progress Note Date of Service: 02/07/18 Note: MRSA positive Patient was on clindamycin prior to discharge Covers organism Nothing further this time Krysten Franks PA-C
--- NOTE | 2018-02-10 08:17 | PN ---
Progress Note - Progress Note Date of Service: 03/10/18 Note: Wound culture grew MRSA positive, staph aureus positive Placed on clindamycin prior to discharge Appropriate treatment was placed
== END | disposition home or self-care (01) ==
LOC: ED 04:15
DX: S11.85XA Open bite of other specified part of neck, initial encounter (principal); L02.11 Cutaneous abscess of neck; B95.62 Methicillin resistant Staphylococcus aureus infection as the cause of diseases classified elsewhere; E11.9 Type 2 diabetes mellitus without complications; Z88.0 Allergy status to penicillin; K21.9 Gastro-esophageal reflux disease without esophagitis; Z86.73 Personal history of transient ischemic attack (TIA), and cerebral infarction without residual deficits; W57.XXXA Bitten or stung by nonvenomous insect and other nonvenomous arthropods, initial encounter; Y92.9 Unspecified place or not applicable
CPT/HCPCS: 10060; 87070; 87077; 87186; 87205; 87640; 87641; 96374; 96375; 99283; A9270-GY

== ENCOUNTER 2018-04-14 19:39 | Emergency (ER) | payer MEDICARE, MEDICAID ==
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
[2018-04-14] MEDS ORDERED: fentaNYL* 50 MCG/ML 2 ML VIAL (100 MCG VIAL) IV SLOW PU ONE (20:13)
[2018-04-14] MEDS ORDERED: Ondansetron ODT TAB* 4 MG SL PRN (20:13)
[2018-04-14] MEDS ORDERED: Ondansetron INJ* 2 MG/ML VIAL IV ONE (20:18)
--- OUTSIDE RECORDS SUMMARY | 2018-04-14 20:49 | XMS REPORT ---
:1945 External Reference #:[id number] Author Organization [employer] Address [address] [place] [address] Phone [phone] Care Team Providers Name Role Phone Lidia Marrero MD Primary Care Physician Unavailable Payers Type Date Identification Numbers Payment Provider Subscriber Medicare Primary Policy Number: [id number] Medicare Elysia Regalado PayID: [id number] [address] [place] [address] Medigap Part B Expires: 2015 Policy Number: [facility] Elysia Rebollar [id number] 2Ndary Claims [employer] Name: [id number] [address] PayID: [id number] [place] [address] Medigap Part B Policy Number: [id number] Medicaid Elysia Regalado Group Name: 1 1 [address] PayID: [id number] [place] [address] Problems Date Description Provider Status Onset: 08/19/2014 Migraine Anju Melendrez NP Active Onset: 08/19/2014 Myoclonus Anju Melendrez NP Active Onset: 02/15/2016 Localized, primary osteoarthritis Samir Vital M.D. Active Onset: 08/21/2017 Skin sensation disturbance Rafael Sewell M.D. Active Onset: 08/21/2017 Chronic pain Rafael Sewell M.D. Active Onset: 08/21/2017 Transient cerebral ischemia Rafael Sewell M.D. Active Onset: 08/21/2017 Restless legs Rafael Sewell M.D. Active Family History Date Family Member(s) Problem(s) Comments General Paternal grandfather with tremors/presumed Parkinson's General Heart Disease General Cancer General Diabetes General Lupus General Hypertension Father Heart Disease Mother Heart Disease Mother Diabetes Siblings 2 brothers of drug overdose, one brother alive and well Social History Type Date Description Comments Lives With Alone Occupation Retired ETOH Use Denies alcohol use Smoking Heavy tobacco smoker (more than 10 cigarettes/day) Daily Caffeine Consumes on average 2 cups of decaff coffee per day Exercise Type/Frequency Exercises rarely Allergies, Adverse Reactions, Alerts Date Description Reaction Status Severity Comments 12/03/2012 Penicillin Anaphylaxis active 12/03/2012 Aspirin g.i.set active 08/19/2014 Morphine and Related edema active 08/19/2014 Aspirin active 08/19/2014 Ketorolac active 08/19/2014 Cephalosporins active 08/19/2014 Carbapenems active 12/01/2015 Bactrim made impetigo active 10/04/2017 Valium active itching, hives Medications Medication Date Status Form Strength Qnty SIG Indications Ordering Provider Gabapentin 08/21 Active Capsules 300mg 90cap 1 by R20.2 Rafael /[facility] rachele Sewell M.D. three times a day Metoprolol Active Tablets 25mg Unknown Tartrate /0000 Levothyroxine Active Tablets 125mcg 1 by Unknown Sodium /0000 mouth every day Nitrostat Active Tablets 0.4mg one sl Unknown /0000 Sub q5min up to 3 doses as needed Pramipexole Active Tablets 0.5mg three Unknown Dihydrochloride /0000 times a day prn for leg spasms Ventolin HFA Active Aerosol 108(90Bas 2 puffs Unknown /0000 e) by mouth mcg/Act four times a day as needed Symbicort Active Aerosol 160-4.5mc 2 puff Unknown /0000 g/Act twice a day Januvia Active Tablets 100mg 1 by Unknown /0000 mouth every day Glucophage Active Tablets 500mg bid Unknown /0000 Tylenol Active Tablets ER 650mg 1 by Unknown Arthritis Pain /0000 mouth every 8 hours as needed Eliquis Active Tablets 5mg 1 by Unknown /0000 mouth twice a day Multivitamins Active Capsules 1 by Unknown /0000 mouth every day Hydroxyzine HCL Active Tablets 10mg three Unknown /0000 times a day for anxiety/p ain Celebrex Active Capsules 200mg 1 caps a Unknown /0000 day Ropinirole HCL Active Tablets 1mg 1 tab Unknown / three times a day Celecoxib 11/30 Hx Capsules 200mg 30cap once s daily Dario Garcia - 01/24 Magnesium Oxide Hx Tablets 400mg 1 po Unknown 400 /0000 daily - 08/18 Levothyroxine Hx Tablets 88mcg 30tab 1 po qd Unknown Sodium s - 08/19 Plavix Hx Tablets 75mg 30tab 1 po qd Unknown / s - 08/18 Ativan Hx Tablets 0.5mg 20tab qid po qd Unknown / s prn - 08/18 Iron Hx Tablets 325(65Fe) 90tab 1 po qd Unknown / mg s - 08/18 Vit C Hx Tablets 250mg 1 po bid Unknown / - 08/18 Zocor Hx Tablets 40mg 90tab 1 po qhs Unknown / s - 08/18 Tricor Hx Tablets 145mg 30tab 1 po qd Unknown / s - 08/18 Risperidone Hx Tablets 0.5mg 60tab 1 bid Unknown / s - 08/18 Zoloft Hx Tablets 50mg 90tab 1 po h.s. Unknown /0000 s - 11/28 Percocet Hx Tablets 5-325mg 60tab 1-2 po Unknown / s q4-6h prn - pain 08/19 Gabapentin Hx Tablets 600mg 60tab 1 qid Unknown /0000 s - 08/19 Advair Hx inhale Unknown /0000 one dose - by mouth 11/28 twice daily. rinse mouth after use Albuterol Hx Nebulizer (2.5mg/3M 100un 1 vial Unknown Sulfate /0000 L) 0.083% its via - nebulizer 11/28 4 times daily as needed Ventolin HFA Hx Aerosol 108(90Bas 1unit 2 puffs Unknown /0000 e) s po qid - mcg/Act prn 08/18 Pramipexole 00/00 Hx Tablets 0.25mg one tab Unknown Dihydrochloride /0000 by mouth - bid 11/28 Klor-Con M20 00/ Hx Tablets ER 20Meq 1 by Unknown /0000 mouth bid - 11/28 Celecoxib Hx Capsules 200mg take one Unknown /0000 capsule - every day 11/28 Gabapentin Hx Capsules 400mg 1 by Unknown /0000 mouth - three 11/28 times day Diltiazem HCL ER 00/ Hx Caps ER 180mg 1 by Unknown /0000 24HR mouth - every day 11/28 Furosemide 00/ Hx Tablets 40mg 1 by Unknown /0000 mouth - every 11/28 and 1/2 tab by mouth in the afternoon Percocet Hx Tablets 7.5-325mg 1 by Unknown /0000 mouth - every 6 11/28 hours needed pain Januvia Hx Tablets 100mg 1 by Unknown /0000 mouth - every day 11/28 Metoprolol Hx Tablets ER 25mg 1/2 by Unknown Succinate ER /0000 24HR mouth bid - 11/28 Levothyroxine 00 Hx Tablets 125mcg 1 by Unknown Sodium /0000 mouth - every day 11/28 Clonazepam 00 Hx Tablets 0.5mg 1 by Unknown /0000 mouth - twice a 11/28 day needed Baclofen Hx Tablets 10mg 1 by Unknown /0000 mouth - three 11/28 day as needed Metformin HCL Hx Tablets 500mg 1 by Unknown /0000 mouth - twice a Digoxin Hx Tablets 125mcg 1 by Unknown /0000 mouth - every day 11/28 Warfarin Sodium 00/00 Hx Tablets 5mg take as Unknown /0000 directed - 11/28 Mupirocin 00/ Hx Ointment 2% apply to Unknown /0000 both - nostrils 02/27 twice day for 5 days Coumadin 00/00 Hx Tablets 5mg take as Unknown /0000 directed - 02/27 Lasix 00/00 Hx Tablets 40mg 1 in a,m Unknown /0000 1/2 in - afternoon 06/13 Omeprazole 00/00 Hx Capsules 20mg 1 by Unknown /0000 DR mouth - every day 02/27 Baclofen 00/00 Hx Tablets 10mg take 1 Unknown /0000 tab with - food or 10/03 milk orally three times a day Fentanyl 00/00 Hx Patches 25mcg/HR apply one Unknown /0000 72HR patch - once 02/27 days Celebrex Hx Capsules 200mg 1 by Unknown /0000 mouth - every day 02/27 Digox Hx Tablets 125mcg 1 by Unknown /0000 mouth - every day 02/27 Pradaxa Hx Capsules 150mg 1 cap by Unknown /0000 mouth - twice a Gabapentin Hx Capsules 400mg 1 by Unknown /0000 mouth - three 08/20 day Zoloft Hx Tablets 50mg 1 by Unknown /0000 mouth - every day 06/13 Klor-Con M20 Hx Tablets ER 20Meq twice a Unknown /0000 day - 06/13 Duragesic-25 Hx Patches 25mcg/HR apply Unknown /0000 72HR patch to - skin 02/27 three days for pain control Advair Diskus Hx Aerosol 250-50mcg 1 puff by Unknown /0000 /Dose mouth - twice a Percocet Hx Tablets 10-325mg 1 tab a / day - 08/20 Diazepam 0000 Hx Tablets 5mg orally Unknown /0000 twice a - day as 06/13 Nicotine Hx Patches 21mg/24HR apply Unknown /0000 24HR patch - daily, 06/13 old one at the same time Paroxetine HCL Hx Tablets 10mg 1 by Unknown /0000 mouth - every day 10/03 Medications Administered in Office Medication Date Status Form Strength Qnty SIG Indications Ordering Provider Depomedrol Administered Injection Casimiro 80MG Piero Li M.D. Vital Signs Date Vital Result Comment 03/25/2018 Height 64 inches 5'4" Weight 197.00 lb Heart Rate 88 /min BP Systolic Recheck 154 mmHg BP Diastolic Recheck 88 mmHg Respiratory Rate 20 /min Body Temperature 98.3 F BMI (Body Mass Index) 33.8 kg/m2 03/21/2018 Height 64 inches 5'4" Ejection Fraction 55-60% 01/29/18 10/04/2017 Height 64 inches 5'4" Weight 184.25 lb with shoes on Heart Rate 52 /min BP Systolic 128 mmHg right arm large cuff sitting BP Diastolic 58 mmHg right arm large cuff sitting BP Systolic Standing 132 mmHg right arm large cuff standing BP Diastolic Standing 70 mmHg right arm large cuff standing BMI (Body Mass Index) 31.6 kg/m2 Ejection Fraction 60-65 06/18/17 08/21/2017 Height 64 inches 5'4" Weight 193.00 lb Heart Rate 62 /min BP Systolic Sitting 142 mmHg BP Diastolic Sitting 88 mmHg Respiratory Rate 17 /min BMI (Body Mass Index) 33.1 kg/m2 07/12/2017 Height 64 inches 5'4" Weight 183.25 lb with shoes Heart Rate 60 /min BP Systolic 160 mmHg large cuff, right arm BP Diastolic 68 mmHg large cuff, right arm BP Systolic Standing 150 mmHg large cuff, right BP Diastolic Standing 80 mmHg large cuff, right BMI (Body Mass Index) 31.5 kg/m2 Ejection Fraction 60-65% 06/18/17 06/14/2017 Height 64 inches 5'4" Weight 190.00 lb from last visit with PCP Heart Rate 80 /min BP Systolic Sitting 140 mmHg right arm, large cuff BP Diastolic Sitting 80 mmHg right arm, large cuff BMI (Body Mass Index) 32.6 kg/m2 Ejection Fraction 60-65% 03/27/17 04/18/2017 Height 64 inches 5'4" Weight 184.00 lb Heart Rate 76 /min BP Systolic 153 mmHg BP Diastolic 68 mmHg Body Temperature 97.6 F BMI (Body Mass Index) 31.6 kg/m2 04/05/2017 Height 64 inches 5'4" Weight 184.00 lb based on last visit to PCP Heart Rate 76 /min BP Systolic 120 mmHg left arm, large cuff BP Diastolic 70 mmHg left arm, large cuff BMI (Body Mass Index) 31.6 kg/m2 Ejection Fraction 60-65% 03/27/17 03/01/2017 Height 64 inches 5'4" Weight 184.25 lb Heart Rate 68 /min BP Systolic 110 mmHg large cuff, left arm BP Diastolic 70 mmHg large cuff, left arm BP Systolic Sitting 110 mmHg large cuff, right arm BP Diastolic Sitting 70 mmHg large cuff, right arm BP Systolic Standing 120 mmHg large cuff, right arm BP Diastolic Standing 68 mmHg large cuff, right arm BMI (Body Mass Index) 31.6 kg/m2 Ejection Fraction 50-55% 06/22/14 11/20/2016 Height 64 inches 5'4" Weight 190.00 lb BP Systolic 124 mmHg BP Diastolic 80 mmHg Body Temperature 97.1 F Pain Level 4 BMI (Body Mass Index) 32.6 kg/m2 05/29/2016 Height 64 inches 5'4" Weight 180.00 lb Heart Rate 80 /min BP Systolic Recheck 132 mmHg BP Diastolic Recheck 84 mmHg Respiratory Rate 16 /min Body Temperature 98.8 F BMI (Body Mass Index) 30.9 kg/m2 02/15/2016 Height 64 inches 5'4" Weight 194.00 lb Heart Rate 88 /min BP Systolic Recheck 128 mmHg BP Diastolic Recheck 84 mmHg Respiratory Rate 16 /min Body Temperature 98.1 F BMI (Body Mass Index) 33.3 kg/m2 08/19/2014 Height 64 inches 5'4" Heart Rate 64 /min BP Systolic Sitting 126 mmHg BP Diastolic Sitting 60 mmHg Respiratory Rate 16 /min Results Test Date Test Result H/L Range Note Laboratory test finding 07/26/2017 Vitamin B12 255 pg/mL 180-914 1 Homocysteine 10 mcmol/L 2 1 Normal Range 180 to 914 Indeterminate Range 145 to 180 Deficient Range <145 2 REFERENCE VALUE <=13 (Fasting) ADDITIONAL INFORMATION This test was developed and its performance characteristics determined by [facility] in a manner consistent with CLIA requirements. This test has not been cleared or approved by the U.S. Food and Drug Administration. Test Performed by: [facility] - [address] [address] Procedures Date CPT Code Description Status 01/29/2018 07803 ECHO Transthorasic Realtime 2D W Doppler & Color Flow Completed Hosp 11/19/2017 63032 ECHO Transthorasic Realtime 2D W Doppler & Color Flow Completed Hosp 11/09/2017 24145 ECHO Transthorasic Realtime 2D W Doppler & Color Flow Completed Hosp 11/09/2017 45084 ECHO Transthorasic Realtime 2D W Doppler & Color Flow Completed Hosp 10/04/2017 11044 EKG, Interpretation Only Completed 06/20/2017 81571 EKG, Interpretation Only Completed 06/19/2017 89793 Cath PLMT&NJX L Ventriculog Img S&I Completed 06/18/2017 04829 ECHO Transthorasic Realtime 2D W Doppler & Color Flow Completed Hosp 06/16/2017 18960 EKG, Interpretation Only Completed 05/18/2017 35389 Carotid Doppler,Bilateral Completed 03/27/2017 46695 ECHO Transthorasic Realtime 2D W Doppler & Color Flow Completed Hosp 03/27/2017 96712 ECHO Transthorasic Realtime 2D W Doppler & Color Flow Completed Hosp 03/01/2017 25954 EKG Tracing & Interpretation Completed 03/01/2017 51158 EKG, Interpretation Only Completed 04/21/2016 85756 Treadmill Interp/Report Only Completed 04/21/2016 07711 Stress Test Supervsn W/Out I/R Completed 04/20/2016 56947 EKG, Interpretation Only Completed 08/24/2015 81336 ECHO Transthorasic Realtime 2D W Doppler & Color Flow Completed Hosp 06/22/2014 49112 ECHO Transthorasic Realtime 2D W Doppler & Color Flow Completed Hosp 11/17/2013 39092 ECHO Transthorasic Realtime 2D W Doppler & Color Flow Completed Hosp 02/06/2013 70558 Color Flow Doppler/Interp & Reprt Completed 02/06/2013 92417 Pulse Wave/Continuous-Interp.RPT Completed 02/06/2013 95400 ECHO Transthorasic Realtime 2D W Doppler & Color Flow Completed Hosp 10/09/2012 83133 Treadmill Interp/Report Only Completed 10/09/2012 26360 Stress Test Supervsn W/Out I/R Completed 08/12/2012 26842 ECHO Transthorasic Realtime 2D W Doppler & Color Flow Completed Hosp 07/08/2012 43892 Inject/Drain Joint/Bursa Major W/O US Completed Encounters Type Date Location Provider CPT E/M Dx [facility] STEVE Ayoub 73798 J44.1 3:05p Hospitalists J96.11 E78.5 G25.81 G89.29 I48.91 F32.9 E03.9 Office Visit 01/31/2018 3:05p [facility], STEVE Ayoub 50926 J96.11 Hospitalists I48.91 G25.81 I35.0 I50.30 E11.9 J44.1 I10 Z86.73 E03.9 Office Visit 01/30/2018 3[facility]04p [facility] STEVE Ayoub 69972 J96.11 Hospitalists I48.91 G25.81 I35.0 I50.30 E11.9 I10 Z86.73 E03.9 Office Visit 01/29/2018 3:04p [facility], Quinn Booth [address]682 J44.1 Hospitalists MD Jerrell J96.21 M79.606 R53.1 R53.83 I48.91 E11.9 Office Visit 12/19/2017 1:35p [facility], [place], [address] M54.5 Hospitallinda Bishop M79.606 J44.9 I48.91 F32.9 G25.81 E03.9 I10 E78.5 E11.8 Office Visit 12/18/2017 1:34p [facility] [place], [address]403 M51.16 Assoc, Hospitallinda Bishop M54.5 M79.606 J44.9 Office Visit 12/17/2017 7:00a [facility] [place] [address]383 M51.16 Of Driss Ivan MD Office Visit 12/16/2017 1:33p [facility] [place] [address] M54.5 Assoc, Hospitalists M79.606 J44.9 G25.81 E11.8 Office Visit 12/16/2017 7:00a [facility] [place] [address]190 M51.16 Of Driss Ivan MD Z86.73 Z79.01 Office Visit 10/04/2017 11:45a [facility] Jose Alfredo Hahn M.D. 47234 I35.0 Z95.2 R94.31 Office Visit 08/28/2017 10:58a [facility], [place] [address] I35.0 Hospitalists R09.02 I50.32 Office Visit 08/21/2017 9:30a [facility], [address]44 R20.2 M.Fabrice G89.29 G25.81 Z86.73 Office Visit 07/27/2017 8:26a [facility] Kaitlin Shea, 81373 G45.9 Assoc,pc [employer] Hospitalists E11.8 I10 E78.5 Office Visit 07/27/2017 3:19p [facility], 71893 R20.2 MXiomara R47.1 G89.29 Z86.73 Office Visit 07/26/2017 7:58a [facility], Rickie Graf, 02193 G45.9 Hospitalists N.PAv E11.8 I10 E78.5 Office Visit 07/26/2017 3:14p [facility], [address]53 R20.2 Dario R47.1 G89.29 Z86.73 Office Visit 07/12/2017 11:15a [facility] Jose Alfredo Hahn M.D. 99147 I35.0 I10 Office Visit 06/25/2017 11:09a [facility] Annelise Aguilarhn, 26248 M54.41 Assoc, Prema Bishop M54.42 W19.xxxA T17.908A Office Visit 06/20/2017 1:59p [facility] Breanna Paiz, 41156 R07.9 Hospitalists [employer] E11.8 I35.0 I10 Office Visit 06/19/2017 1:58p [facility], Breanna Paiz, 80806 R07.9 Hospitalists [employer] E11.8 I35.0 I10 Office Visit 06/18/2017 3:02p [facility] Jeffry Hahn 40923 R07.9 Driss Bishop I35.0 Office Visit 06/18/2017 1:58p [facility] Breanna Paiz, 43629 R07.9 Hospitalists [employer] E11.8 I35.0 I10 Office Visit 06/17/2017 3:43p [facility] Jose Alfredo Hahn, 34208 R07.9 Driss Bishop I35.0 Office Visit 06/17/2017 1:56p [facility] Ass, Rickie Graf, 26821 R07.9 Hospitalists N.P. I35.0 E11.8 I10 Office Visit 06/16/2017 1:55p [facility], Rickie Graf, 58149 R07.9 Hospitalists N.P. I35.0 E11.8 I10 Office Visit 06/14/2017 10:30a [facility] Jose Alfredodeloris Hahn M.D. 51743 I35.0 R94.31 Office Visit 04/18/2017 9:45a [facility] Nallely Sanabria, 48081 M86.242 Of Valeria Bishop Office Visit 04/05/2017 11:15a [facility] Jose Alfredo Hahn, 63892 I35.0 M.DAv R94.31 Z01.810 R09.89 Office Visit 03/01/2017 [facility] [address]120 R94.31 M.DAv Z01.810 I35.0 R09.89 M86.142 Office Visit 11/20/2016 11:00a [facility] Nallely Sanabria, 98784 M86.242 Of Valeria Bishop Office Visit 05/29/2016 2:30p [facility] Lexx Sanchez, [address] [facility] AT Stephane Bishop S67.191A Office Visit 04/22/2016 12:59p [facility], Annelise Mack, 93980 R07.9 Hospitalists M.DAv L08.9 N17.9 W19.xxxA Office Visit 04/21/2016 12:58p [facility], Claribel Craig, N.P. 07647 N17.9 Hospitalists L08.9 R07.9 W19.xxxA Office Visit 04/20/2016 12:57p [facility], [place] [address] R07.9 Hospitalists L08.9 N17.9 W19.xxxA Office Visit 02/15/2016 1:30p [facility] Of Samir Vital, [address] [facility] Stephane Bishop Office Visit 08/19/2014 3:00p [facility] Anju Melendrez, [employer] [address] [facility] Office Visit 10/11/2012 9:17a [facility] Assoc,pc Juan Antonio Arenas [address] 786.50 Hospitalists Dario Fink 427.31 278.01 338.29 Office Visit 10/09/2012 9:20a [facility] Ahmet Salter M.D., [address] [facility] FAC, FSCAI 427.31 Office Visit 10/08/2012 9:16a [facility] Annelise Mack, 45817 786.50 Assoc, Hospitalists Dario 427.31 278.01 492.8 Office Visit 08/19/2012 1:45p [facility] Of Casimiro Li M.D. [address] [facility] [place] Office Visit 08/13/2012 10:36a [facility],pc Naun Jaime, 78054 427.31 Hospitalists Dario 278.01 250.40 Office Visit 08/12/2012 [facility] [address]607 786.52 Assoc, Hospitalists Dario 427.31 278.01 250.40 Office Visit 07/08/2012 1:00p [facility] Of Casimiro Li M.D. [address] [facility] [place] Plan of Care Future Appointment(s):06/25/2018 2:30 pm - Samir Vital M.D. at [facility] AT Yjjcfxif31/18/2018 11:15 am - Jose Alfredo Hahn M.D. at [facility]03/25/2018 - Lexx Sanchez M.D.R23.8 Other skin changesFollow up:2-3 mo
[2018-04-14 20:50] LABS: INR 1.09 (0.77-1.02)
--- OUTSIDE RECORDS SUMMARY | 2018-04-14 20:50 | XMS REPORT ---
:1945 External Reference #:[id number] Author Organization [facility] Address [address] [place] [address] Phone [phone] Care Team Providers Name Role Phone Lidia Marrero M.D. Care Team Information Crew Supervisor Unavailable Lidia Marrero M.D. Primary Care Physician Unavailable Payers Type Date Identification Numbers Payment Provider Subscriber Medicare Primary Policy Number: [id number] Medicare-National Elysia Regalado GVT.Sys PayID: [id number] [address] [place] [address] Medicaid Policy Number: [id number] Medicaid-Adult Elysia Regalado PayID: [id number] [address] [place] [address] Problems Date Description Provider Status Onset: 02/27/2018 Chronic rhinitis Alisson Calix M.D. Active Onset: 02/27/2018 Nonvenomous insect bite of face without Alisson Calix M.D. Active infection Onset: 02/27/2018 Pruritus of skin Alisson Calix M.D. 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 Home Environment Has central air Home Environment Stairs are present Home Environment Cotton Comforter Home Environment Mattress is encased in an allergy proof case Home Environment Pillows are not encased in an allergy proof case Home Environment Pillows are polyester Home Environment Does not use a dehumidifier Home Environment There are no draperies in the home Home Environment The home is not jovon Home Environment The floors are carpeted Home Environment Water Source: [facility] Smoke-Free Home is smoke-free Pets None Occupation Retired ETOH Use Occasionally consumes alcohol Smoking Patient is a current smoker, smokes every day Recreational Drug Use Never Used Drugs Allergies, Adverse Reactions, Alerts Date Description Reaction Status Severity Comments 02/27/2018 Penicillin active 02/27/2018 Morphine active 02/27/2018 Aspirin active 02/27/2018 Bactrim active Medications Medication Date Status Form Strength Qnty SIG Indications Ordering Provider Vanicream 03/25 Active Cream 453gm apply L29.9 Ana María /2018 liberally [place], 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 twice a day Incruse Ellipta Active Aerosol 62.5mcg/I Nic, / nh MD Lidia Metoprolol Active Tablets 25mg Unknown Succinate ER / ER 24HR Diazepam Active Tablets 5mg Nic, MD Lidia Levocetirizine Active Tablets 5mg Nic, Dihydrochloride MD Lidia Metformin HCL Active Tablets 500mg Unknown Ropinirole HCL Active Tablets 2mg Unknown Symbicort Active Aerosol 160-4.5mc Nic, g/Act MD Lidia Gabapentin Active Capsules 400mg Nic, MD Lidia Atorvastatin Active Tablets 40mg Unknown Calcium / Hydrochlorothiazide Active Tablets 25mg Unknown Oxycodone-Acetamino Active Tablets 10-325mg Nic, phen MD Lidia Nasacort Allergy Active Aerosol 55mcg/Act 16.90 spray 1 Ana María 24HR /0000 0ml spray into [place], each TUMBLER MACHINE OPERATOR-C nostril one time daily Doxycycline Hyclate Active Capsules 100mg Unknown /0000 Prednisone Active Tablets 20mg 1 tab by Unknown / mouth once a day for 3 days Clopidogrel Active Tablets 75mg Unknown Bisulf Eliquis Active Tablets 5mg Unknown /0000 Vital Signs Date Vital Result Comment 03/25/2018 Height 64 inches 5'4" Weight 196.00 lb Weight in kg's 88.906 Respiratory Rate 24 /min Heart Rate 94 /min O2 % BldC Oximetry 92 % with o2 on BP Systolic 144 mmHg BP Diastolic 87 mmHg BMI (Body Mass Index) 33.6 kg/m2 02/27/2018 Height 64 inches 5'4" Weight 200.00 lb Weight in kg's 90.720 Respiratory Rate 20 /min Heart Rate 64 /min O2 % BldC Oximetry 94 % on 4 liters of 02 BP Systolic 111 mmHg BP Diastolic 72 mmHg BMI (Body Mass Index) 34.3 kg/m2 Results Description No Information Procedures Description No Information Encounters Type Date Location Provider CPT E/M Dx Office Visit 03/25/2018 9:20a [facility] 43856 L29.9 S10.86xA J31.0 Office Visit 02/27/2018 9:40a Phong Calix M.D. 19974 L29.9 S10.86xA J31.0 Plan of Care 03/25/2018 - BERNA Nolen-CL29.9 Pruritus, [id number] Insect bite of other specified part of neck, init [id number] Chronic rhinitisNew Medication:VanicreamRecommendations:Continue all medications as prescribed.Refrain from wearing perfumes/scented colognes while visitingour office. We will switch the Levocetirizine to be used daily instead is as needed please give this to her every evening Continue the benadryl as needed Trial fo free and clear shampoo to see if this makes the scalp less itchy Try not to scratch Use a Hydrocortisone cream to the neck or lower scalp Start Nasacort 1 spray in each nostril once daily to see f this helps the nasal symptoms/ If this does not help, you may just need saline
[2018-04-14 20:51] LABS: ABS Basophils 0 10^3/ul (0-0.2); ABS Eosinophils 0.1 10^3/ul (0-0.6); ABS Lymphocytes 2.1 10^3/ul (1.0-4.8); ABS Monocytes 0.6 10^3/ul (0-0.8); ABS Nucleated RBC 0 10^3/ul; Eosinophil % 1.3 % (0-6); Hematocrit 46 % (35-47); Hemoglobin 15.2 g/dl (12.0-16.0); Mean Corpuscular HGB Conc 33 g/dl (31-36); Mean Corpuscular Hemoglobin 31 pg (27-31); Mean Corpuscular Volume 94 fL (80-97); Mean Platelet Volume 8.2 fL (7.4-10.4); Nucleated Red Blood Cells % 0.1; Platelet Count 173 10^3/ul (150-450); Red Blood Count 4.88 10^6/ul (4.00-5.40); Red Cell Distribution Width 15 % (10.5-15); White Blood Count 7.8 10^3/ul (3.5-10.8)
[2018-04-14] MEDS ORDERED: LORazepam INJ* 2 MG/ML 1 ML VIAL IM ONE (20:53)
[2018-04-14] MEDS ORDERED: oxyCODONE/Acetamin 5/325 MG* TAB PO ONE (20:54)
[2018-04-14 20:57] LABS: EGFR Non-African American 71.9 (>60)
--- NOTE | 2018-04-14 21:56 | RAD ---
EXAM: CT Head Without Intravenous Contrast EXAM DATE/TIME: 04/14/2018 9:38 PM CLINICAL HISTORY: 72 years old, female; Injury or trauma; Fall TECHNIQUE: Axial computed tomography images of the head/brain without intravenous contrast. All CT scans at this facility use at least one of these dose optimization techniques: automated exposure control; mA and/or kV adjustment per patient size (includes targeted exams where dose is matched to clinical indication); or iterative reconstruction. COMPARISON: BRAIN WO CT BRAIN WO 12/16/2017 9:56 AM FINDINGS: Brain: Mild periventricular and subcortical low attenuation without adjacent mass effect. No acute ischemic changes, extra axial fluid collections, intraparenchymal hemorrhage, or midline shift. Ventricles: Normal. No ventriculomegaly. Bones/joints: Normal. No acute fracture. Sinuses: Normal as visualized. No acute sinusitis. Mastoid air cells: Normal as visualized. No mastoid effusion. Soft tissues: Normal. Vasculature: The vasculature demonstrates diffuse mild atherosclerotic calcification. IMPRESSION: 1. No traumatic intracranial abnormalities. 2. Mild chronic small vessel ischemic disease. To contact [facility] with a general question: [facility] - [phone] For direct physician to physician contact: Physician Hotline - [phone] [facility] ([facility] Facility ID #[id number])
[2018-04-15 01:30] VITALS: BP 0/0
== END 2018-04-15 01:28 | disposition home or self-care (01) ==
LOC: ED 19:39
DX: M79.606 Pain in leg, unspecified (principal); R55 Syncope and collapse; Z88.0 Allergy status to penicillin; Z79.01 Long term (current) use of anticoagulants; F17.210 Nicotine dependence, cigarettes, uncomplicated
CPT/HCPCS: 36415; 70450; 71045; 80053; 82550; 84484; 85025; 85610; 85730; 93005; 96372; 96374; 96375; 99284; A9270-GY; J2060; J2405; J3010

== ENCOUNTER 2018-06-03 12:03 | Emergency (ER) | payer MEDICARE, MEDICAID ==
[2018-06-03] MEDS ORDERED: fentaNYL* 50 MCG/ML 2 ML VIAL (100 MCG VIAL) IV SLOW PU ONE (12:15)
[2018-06-03] MEDS ORDERED: Ropinirole TAB* 0.5 MG TAB PO ONE (12:46)
[2018-06-03] MEDS ORDERED: fentaNYL PATCH 25 MCG/HR TRANSDERM ONE (12:47)
--- NOTE | 2018-06-03 12:55 | ED ---
Lower Extremity - HPI Summary HPI Summary: The patient is a 72 y/o F presenting to [facility] with a chief complaint of chronic cramping in BLE with worsening in the last few days. The pain is described as a heaviness and numbness, and is currently rated 8/10 in severity. She has hx of restless leg syndrome, which is being managed with Fentanyl patches. She also takes Percocet and Oxycodone for pain. - History of Current Complaint Chief Complaint: EDExtremityLower Stated Complaint: LEG PAIN Time Seen by Provider: 06/03/18 12:09 Pain Intensity: 10 - Allergies/Home Medications Allergies/Adverse Reactions: Allergies Allergy/AdvReac Type Severity Reaction Status Date / Time aspirin Allergy Unknown Verified 06/03/18 12:17 Reaction Details Carbapenems Allergy Unknown Verified 06/03/18 12:17 Reaction Details Cephalosporins Allergy Unknown Verified 06/03/18 12:17 Reaction Details ketorolac Allergy Unknown Verified 06/03/18 12:17 Reaction Details morphine Allergy Unknown Verified 06/03/18 12:17 Reaction Details Penicillins Allergy Unknown Verified 06/03/18 12:17 Reaction Details sulfamethoxazole Allergy Unknown Verified 06/03/18 12:17 [From Bactrim] Reaction Details trimethoprim [From Bactrim] Allergy Unknown Verified 06/03/18 12:17 Reaction Details PMH/Surg Hx/FS Hx/Imm Hx Endocrine/Hematology History: Reports: Hx Anticoagulant Therapy, Hx Diabetes, Hx Thyroid Disease Denies: Hx Blood Transfusions Cardiovascular History: Reports: Hx Angina, Hx Congestive Heart Failure, Hx Hypercholesterolemia, Hx Hypertension, Hx Peripheral Vascular Disease, Hx Syncope, Other Cardiovascular Problems/Disorders - CHF Denies: Hx Pacemaker/ICD Respiratory History: Reports: Hx Asthma, Hx Chronic Bronchitis, Hx Chronic Obstructive Pulmonary Disease (COPD) - PT ON HOME O2 4 L/MIN, Hx Pneumonia, Hx Pulmonary Edema, Hx Seasonal Allergies, Hx Sleep Apnea Denies: Hx Lung Cancer GI History: Reports: Hx Gastroesophageal Reflux Disease Musculoskeletal History: Reports: Hx Arthritis, Hx Back Problems, Hx Bursitis, Hx Orthopedic Injury, Hx Osteoporosis Denies: Hx Fibromyalgia Sensory History: Reports: Hx Contacts or Glasses, Hx Vision Problem, Hx Hearing Problem - [place] Denies: Hx Hearing Aid Opthamlomology History: Reports: Hx Contacts or Glasses, Hx Vision Problem Neurological History: Reports: Hx CVA Denies: Hx Dementia, Hx Developmental Delay, Hx Headaches, Hx Migraine, Hx Seizures, Hx Spinal Cord Injury, Hx Transient Ischemic Attacks (TIA) Psychiatric History: Reports: Hx Anxiety, Hx Depression Denies: Hx Panic Disorder - Cancer History Cancer Type, Location and Year: Uterine Cancer Hx Chemotherapy: No Hx Radiation Therapy: Yes Hx Palliative Cancer Treatment: No - Surgical History Surgery Procedure, Year, and Place: cholecystectomy, carpal tunnel bilat hands, hysterectomy, heart valve repair/replacement (2018) Hx Anesthesia Reactions: No Infectious Disease History: No Infectious Disease History: Reports: Hx of Known/Suspected MRSA Denies: Traveled Outside the [place] in Last 30 Days - Family History Known Family History: Positive: Hypertension, Diabetes - Social History Alcohol Use: None Alcohol Amount: wine Hx Substance Use: No Substance Use Type: Reports: None Hx Tobacco Use: Yes Smoking Status (MU): Light Every Day Tobacco Smoker Type: Cigarettes Amount Used/How Often: 1/2 pack a day Have You Smoked in the Last Year: Yes Review of Systems Positive: Other - pain and heaviness feeling in bilateral legs Positive: Numbness - in BLE All Other Systems Reviewed And Are Negative: Yes Physical Exam - Summary Physical Exam Summary: Appearance: Mild distress, Well-nourished, lying in bed comfortable Skin: Warm, dry, no obvious rash Eyes: sclera anicteric, no conjunctival pallor ENT: mucous membranes moist Neck: deferred Respiratory: No signs of respiratory distress Cardiovascular: Appears well perfused, pulses are nml Abdomen: deferred Musculoskeletal: Moving all 4 extremities without obvious discomfort Neurological: Awake and alert, mentation is normal, speech is fluent and appropriate Psychiatric: affect is normal, does not appear anxious or depressed Triage Information Reviewed: Yes Vital Signs On Initial Exam: Initial Vitals Pulse Pulse Ox 65 94 06/03/18 12:07 06/03/18 12:07 Vital Signs Reviewed: Yes Diagnostics - Vital Signs Vital Signs Temp Pulse Resp BP Pulse Ox 06/03/18 12:27 77 13 143/95 93 06/03/18 12:26 24 06/03/18 12:10 98.5 F 82 18 106/48 94 06/03/18 12:07 65 94 - Laboratory Lab Statement: Any lab studies that have been ordered have been reviewed, and results considered in the medical decision making process. Re-Evaluation - Re-Evaluation First Eval Re-Evaluation Time: 12:45 Change: Unchanged Comment: I spoke with the patient about discharge home with a new fentanyl patch , and she will return to her normal medications once home. Lower Extremity Course/Dx - Course Course Of Treatment: The patient is a 72 y/o F with a chief complaint of chronic cramping, numbness, and heaviness in BLE with worsening in the last few days, due to restless leg syndrome. She is currently using Fentanyl patches, Percocet, and Oxycodone for pain management. Physical exam is negative. In the ED course, the patient was given Requip, Fentanyl, and Oxycodone. She is diagnosed with chronic pain, peripheral neuropathy, and restless leg syndrome. She will be discharged home with instructions and follow up with her PCP. She will continue medications as prescribed. She agrees with this plan and understands the need for return to the ED if symptoms worsen. - Diagnoses Provider Diagnoses: Chronic pain, Peripheral neuropathy, Restless leg syndrome Discharge - Sign-Out/Discharge Documenting (check all that apply): Patient Departure - Patient will be discharged home. - Discharge Plan Condition: Stable Disposition: HOME Patient Education Materials: Chronic Pain (ED), Peripheral Neuropathy (ED) Referrals: Janes GAMING,Lidia Abraham [Primary Care Provider] - Additional Instructions: We applied a fentanyl patch at your ordered dose today, as your original patch had come off. This is likely why your pain flared up. Resume your present medications when you get home. - Billing Disposition and Condition Condition: STABLE Disposition: Home - Attestation Statements Document Initiated by Erinn: Yes Documenting Scribe: Xin Diego Provider For Whom Erinn is Documenting (Include Credential): Dr. Linden Garg MD Scribe Attestation: Xin Mustafa scribed for Dr. Linden Garg MD on 06/04/18 at 1249. Scribe Documentation Reviewed: Yes Provider Attestation: The documentation as recorded by the Xin jolley accurately reflects the service I personally performed and the decisions made by me, Dr. Linden Garg MD Status of Scrroldan Document: Viewed
[2018-06-03] MEDS ORDERED: oxyCODONE TAB* 5 MG TAB PO ONE (13:25)
[2018-06-03 13:54] VITALS: BP 143/44
[2018-06-03] MEDS ORDERED: rOPINIRole TAB* 1 MG PO ONE (14:00)
== END 2018-06-03 14:45 | disposition home or self-care (01) ==
LOC: ED 12:03
DX: M79.605 Pain in left leg (principal); M79.604 Pain in right leg; G62.9 Polyneuropathy, unspecified; G25.81 Restless legs syndrome; J44.9 Chronic obstructive pulmonary disease, unspecified; Z99.81 Dependence on supplemental oxygen; Z79.01 Long term (current) use of anticoagulants; Z95.2 Presence of prosthetic heart valve; Z88.6 Allergy status to analgesic agent; Z88.1 Allergy status to other antibiotic agents; Z88.5 Allergy status to narcotic agent; Z88.0 Allergy status to penicillin; Z88.2 Allergy status to sulfonamides; F17.210 Nicotine dependence, cigarettes, uncomplicated
CPT/HCPCS: 96374; 99282; A9270-GY; J3010

== ENCOUNTER 2018-12-06 15:53 | Inpatient (IN) | payer MEDICARE, MEDICAID ==
--- NOTE | 2018-12-06 16:50 | ED ---
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 The patient says that she was mad and said some things that she shouldn't have said. In the ED the patient denies any current SI or HI. She denies use of any drugs or alcohol. Per triage note, "Pt from the [facility], uncooperative with staff, per police when they tried to give her meds she stated "I don't care I want to " and the patient rated her pain as a 0/10 in severity. - History Of Current Complaint Chief Complaint: EDMentalHealth Time Seen by Provider: 12/06/18 16:33 Hx Obtained From: Patient, Other: - police Onset/Duration: Sudden Onset, Lasting Hours, Resolved Timing: Intermittent Episode Lasting - hours Severity Initially: Mild Severity Currently: None Character: Depressed Aggravating Factor(s): Nothing Alleviating Factor(s): Nothing Associated Signs And Symptoms: Positive: Negative Related History: Positive For: Prior Psychiatric Issues Has Suicidal: Reports: Thoughts - NURSING INFORMATICS CLINICAL ANALYST but denies SI currently Has Homicidal: Denies: Thoughts - Allergies/Home Medications Allergies/Adverse Reactions: Allergies Allergy/AdvReac Type Severity Reaction Status Date / Time aspirin Allergy Unknown Verified 06/03/18 12:17 Reaction Details Carbapenems Allergy Unknown Verified 06/03/18 12:17 Reaction Details Cephalosporins Allergy Unknown Verified 06/03/18 12:17 Reaction Details ketorolac Allergy Unknown Verified 06/03/18 12:17 Reaction Details morphine Allergy Unknown Verified 06/03/18 12:17 Reaction Details Penicillins Allergy Unknown Verified 06/03/18 12:17 Reaction Details sulfamethoxazole Allergy Unknown Verified 06/03/18 12:17 [From Bactrim] Reaction Details trimethoprim [From Bactrim] Allergy Unknown Verified 06/03/18 12:17 Reaction Details PMH/Surg Hx/FS Hx/Imm Hx Endocrine/Hematology History: Reports: Hx Anticoagulant Therapy, Hx Diabetes, Hx Thyroid Disease Denies: Hx Blood Transfusions Cardiovascular History: Reports: Hx Angina, Hx Congestive Heart Failure, Hx Hypercholesterolemia, Hx Hypertension, Hx Peripheral Vascular Disease, Hx Syncope, Other Cardiovascular Problems/Disorders - CHF Denies: Hx Pacemaker/ICD Respiratory History: Reports: Hx Asthma, Hx Chronic Bronchitis, Hx Chronic Obstructive Pulmonary Disease (COPD) - PT ON HOME O2 4 L/MIN, Hx Pneumonia, Hx Pulmonary Edema, Hx Seasonal Allergies, Hx Sleep Apnea Denies: Hx Lung Cancer GI History: Reports: Hx Gastroesophageal Reflux Disease Musculoskeletal History: Reports: Hx Arthritis, Hx Back Problems, Hx Bursitis, Hx Orthopedic Injury, Hx Osteoporosis Denies: Hx Fibromyalgia Sensory History: Reports: Hx Contacts or Glasses, Hx Vision Problem, Hx Hearing Problem - [place] Denies: Hx Hearing Aid Opthamlomology History: Reports: Hx Contacts or Glasses, Hx Vision Problem Neurological History: Reports: Hx CVA Denies: Hx Dementia, Hx Developmental Delay, Hx Headaches, Hx Migraine, Hx Seizures, Hx Spinal Cord Injury, Hx Transient Ischemic Attacks (TIA) Psychiatric History: Reports: Hx Anxiety, Hx Depression Denies: Hx Panic Disorder - Cancer History Cancer Type, Location and Year: Uterine Cancer Hx Chemotherapy: No Hx Radiation Therapy: Yes Hx Palliative Cancer Treatment: No - Surgical History Surgery Procedure, Year, and Place: cholecystectomy, carpal tunnel bilat hands, hysterectomy, heart valve repair/replacement (2017) Hx Anesthesia Reactions: No Infectious Disease History: No Infectious Disease History: Reports: Hx of Known/Suspected MRSA Denies: Traveled Outside the US in Last 30 Days - Family History Known Family History: Positive: Hypertension, Diabetes - Social History Alcohol Use: None Alcohol Amount: wine Hx Substance Use: No Substance Use Type: Reports: None Hx Tobacco Use: Yes Smoking Status (MU): Light Every Day Tobacco Smoker Type: Cigarettes Amount Used/How Often: 1/2 pack a day Have You Smoked in the Last Year: Yes Review of Systems Negative: Fever Positive: Depressed, Other - Pt reportedly had SI NURSING INFORMATICS CLINICAL ANALYST, but denies any current SI or HI All Other Systems Reviewed And Are Negative: Yes Physical Exam - Summary Physical Exam Summary: Appearance: Well appearing, no pain distress Skin: warm, dry, reflects adequate perfusion Head/face: normal Eyes: EOMI, WENDY ENT: normal Neck: supple, non-tender Respiratory: CTA, breath sounds present Cardiovascular: RRR, pulses symmetrical Abdomen: non-tender, soft Musculoskeletal: normal, strength/ROM intact Neuro: normal, sensory motor intact, A&Ox3 Psych: depressed affect Triage Information Reviewed: Yes Vital Signs On Initial Exam: Initial Vitals Temp Pulse Resp BP Pulse Ox 97.1 F 90 16 162/85 87 12/06/18 15:56 12/06/18 15:56 12/06/18 15:56 12/06/18 15:56 12/06/18 15:56 Vital Signs Reviewed: Yes Diagnostics - Vital Signs Vital Signs Temp Pulse Resp BP Pulse Ox 12/06/18 15:56 97.1 F 90 16 162/85 87 - Laboratory Lab Statement: Any lab studies that have been ordered have been reviewed, and results considered in the medical decision making process. 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 The patient says that she was mad and said some things that she shouldn't have said. The physical exam revealed a depressed affect. This patient will be signed out from Dr. Whitten to Dr. Garg upon shift change at 19:00 12/06/18 pending labs and MHE. - Differential Dx/Clinical Impression Differential Diagnosis/HQI/PQRI: Positive: Anxiety, Depression Provider Diagnosis: Depression Discharge - Sign-Out/Discharge Documenting (check all that apply): Sign-Out Patient Signing out patient TO: Linden Garg - pending labs and MHE Patient Received Moderate/Deep Sedation with Procedure: No - Discharge Plan Condition: Stable Referrals: Janes GAMING,Lidia Abraham [Primary Care Provider] - - Billing Disposition and Condition Condition: STABLE - Attestation Statements Document Initiated by Scribe: Yes Documenting Scribe: Ahmet Elaine Provider For Whom Erinn is Documenting (Include Credential): Dario Whitten MD Scribe Attestation: Ahmet Mustafa, scribed for Dario Whitten MD on 12/06/18 at 1843. Scribe Documentation Reviewed: Yes Provider Attestation: The documentation as recorded by the Ahmet jolley accurately reflects the service I personally performed and the decisions made by me, Dario Whitten MD Status of Scribe Document: Viewed
[2018-12-06 18:43] LABS: ABS Eosinophils 0.1 10^3/ul (0-0.6); ABS Lymphocytes 2.5 10^3/ul (1.0-4.8); ABS Monocytes 0.7 10^3/ul (0-0.8); ABS Neutrophils 8.2 10^3/ul (1.5-7.7); Eosinophil % 0.5 %; Hematocrit 38 % (35-47); Hemoglobin 12.7 g/dL (12.0-16.0); Lymphocyte % 21.5 %; Mean Corpuscular HGB Conc 34 g/dL (31-36); Mean Corpuscular Hemoglobin 32 pg (27-31); Mean Corpuscular Volume 93 fL (80-97); Mean Platelet Volume 8.8 fL (7.4-10.4); Platelet Count 104 10^3/uL (150-450); Red Blood Count 4.02 10^6 /uL (3.70-4.87); Red Cell Distribution Width 15 % (10-15); White Blood Count 11.4 10^3/uL (3.5-10.8)
[2018-12-06 18:45] LABS: Acetaminophen < 15 mcg/mL; Alcohol < 10 mg/dL (<10); Salicylate < 2.50 mg/dL (<30)
--- NOTE | 2018-12-06 19:16 | ED ---
Progress - Progress Note Progress Note: This pt was signed out from Dr. Wihtten to Dr. Antoine at shift change at 19:00 on 12/06/18 pending mental health evaluation. Pt had a mental health evaluation and her case was reviewed by Dr. Ibarra, psychiatrist. Per mental health religious educator, Dr. Ibarra cleared the pt for discharge dx: adjustment disorder. - Results/Orders Results/Orders: EKG at 03:16 Rate: Bradycardia at 58 bpm Rhythm: Sinus bradycardia Additional comments: Nonspecific T wave changes and PVCs. Chest XR, as read by ED physician IMPRESSION: COPD with no acute infiltrate Chest CTA, as read by radiologist IMPRESSION: 1. No pulmoanry embolus. 2. Small amount of fluid in the pericardial space. 3. Status post TAVR procedure. 4. Coronary artery calcifications. Dr. Antoine has reviewed this report. Re-Evaluation - Re-Evaluation First Eval Re-Evaluation Time: 02:33 Change: Unchanged Comment: Pt is sleeping. On re-eval pt has bilateral expiratory and inspiratory wheezes. Course/Dx - Course Course Of Treatment: This pt was signed out by Dr. Whitten pending MHE. Pt had a mental health evaluation and her case was reviewed by Dr. Ibarra, psychiatrist. Per mental health religious educator, Dr. Ibarra cleared the pt for discharge dx: adjustment disorder. Psychiatrist referred the pt back to rule out UTI. Urinalysis was obtained and it was negative for a UTI. Upon trying to discharge patient she was noted to have wheezing. In the ED course the pt received duoneb, tramadol, solu-medrol, magnesium sulfat, albuterol, mirapex. Chest XR reveals COPD with no acute infiltrate. Chest CTA shows 1. No pulmoanry embolus. 2. Small amount of fluid in the pericardial space. 3. Status post TAVR procedure. 4. Coronary artery calcifications. Discussed the case with Dr. Gaffney, hospitalist, who accepted the pt for admission. - Diagnoses Provider Diagnoses: Adjustment disorder, COPD (chronic obstructive pulmonary disease) - Provider Notifications Discussed Care Of Patient With: Farhad Gaffney - hospitalist Time Discussed With Above Provider: 06:52 Instructed by Provider To: Admit As Inpatient Discharge - Sign-Out/Discharge Documenting (check all that apply): Patient Departure - Admit to [facility], Receiving Sign-Out Receiving patient FROM: Dario Whitten Patient Received Moderate/Deep Sedation with Procedure: No - Discharge Plan Condition: Stable Disposition: ADMITTED TO [facility] Referrals: Janes GAMING,Lidia Abraham [Primary Care Provider] - Additional Instructions: Per completion of a mental health evaluation, you are cleared for release and do not require inpatient psychiatric hospitalization at this time. Please go to nearest emergency room or call 911 if safety concerns arise or condition worsens. Important Phone Numbers: [facility] ph:[phone] Suicide Prevention and Crisis Services ph:[phone] National Suicide Prevention Lifeline ph:[phone] (1938) [facility] ph:[phone] Alcoholics Anonymous ph:[phone] [facility] ph:[phone] [facility] Police ph:[phone] Mental Health Recommendation: Seek assistance from [facility] in addressing mental health assessment and care. Mental Health Dx is Adjustment Disorder, Unspecified. - Attestation Statements Document Initiated by Scribe: Yes Documenting Scribe: Karen Lao Provider For Whom Scribe is Documenting (Include Credential): Niurka Antoine MD Scribe Attestation: IKaren, scribed for Niurka Antoine MD on 12/07/18 at 0622. Status of Scribe Document: Ready
[2018-12-06 19:32] LABS: Albumin 3.9 g/dL (3.2-5.2); CO2 Carbon Dioxide 29 mmol/L (22-32); Calcium 9.1 mg/dL (8.6-10.3); Chloride 108 mmol/L (101-111); Potassium 3.7 mmol/L (3.5-5.0)
[2018-12-06 19:35] LABS: ALT 20 U/L (7-52); AST 19 U/L (13-39); Albumin/Globulin Ratio 1.8 (1-3); Alkaline Phosphatase 73 U/L (34-104); BUN/Creatinine Ratio 26.3 (8-20); Blood Urea Nitrogen 21 mg/dL (6-24); EGFR African American 85.6 (>60); EGFR Non-African American 70.7 (>60); Globulin 2.2 g/dL (2-4); Glucose 100 mg/dL (70-100); Total Protein 6.1 g/dL (6.4-8.9)
[2018-12-06 19:42] LABS: Anion Gap 7 mmol/L (2-11); Sodium 144 mmol/L (135-145)
[2018-12-06 20:34] LABS: Urine Appearance Clear; Urine Bacteria Absent (Absent); Urine Bilirubin Negative (Negative); Urine Blood Negative (Negative); Urine Color Yellow; Urine Glucose Negative (Negative); Urine Ketones Negative (Negative); Urine Nitrite Negative (Negative); Urine Protein 1+(30 mg/dL) (Negative); Urine Red Blood Cell Absent (Absent); Urine Specific Gravity 1.019 (1.010-1.030); Urine Squamous Epithelial Cell Present (Absent); Urine Urobilinogen Negative (Negative); Urine White Blood Cell Absent (Absent)
[2018-12-06 20:55] LABS: Urine Benzodiazepine Screen Presumptive Positive (None Detect); Urine Opiates Screen None Detected (None Detect)
[2018-12-07] MEDS ORDERED: Albuterol/Ipratropium NEB.SOL* Albuterol 2.5 MG/Ipratropium 0.5 MG 3 ML INH ONE (00:35)
[2018-12-07] MEDS ORDERED: traMADol TAB* 50 MG PO ONE (00:41)
[2018-12-07] MEDS ORDERED: methylPREDNISolone 125 MG* 2 ML VIAL IV ONE (02:36)
[2018-12-07] MEDS ORDERED: Magnesium Sulfate 2 GM IV* 2 GM/50 ML BAG IVPB ONE (02:37)
[2018-12-07] MEDS: Albuterol 2.5 MG/3 ML NEB.SOL* (0.083%) INH SCH ×3 (03:27→03:42)
[2018-12-07 03:33] LABS: Activated Partial Thrombo Time 35.4 seconds (26.0-38.0); INR 1.11 (0.82-1.09)
[2018-12-07] MEDS ORDERED: Iodixanol* (CONTRAST) 320 MG/ML 100 ML SDV IV ONE (04:03)
[2018-12-07] MEDS ORDERED: Pramipexole TAB* 0.5 MG PO ONE (05:20)
[2018-12-07] MEDS ORDERED: diPHENhydraMINE PO* 25 MG PO PRN (08:07)
[2018-12-07] MEDS ORDERED: HYDROCORTISONE ACETATE TOPICAL PRN (08:07)
[2018-12-07] MEDS ORDERED: Magnesium CITRATE* 300 ML BTL PO ONE (08:41)
[2018-12-07] MEDS ORDERED: Acetaminophen TAB* 325 MG PO SCH (09:00)
[2018-12-07] MEDS ORDERED: oxyCODONE TAB* 5 MG TAB PO SCH (09:00)
[2018-12-07] MEDS ORDERED: metFORMIN* 500 MG TAB PO SCH (09:00)
[2018-12-07] MEDS ORDERED: Azithromycin 500 mg/250 ml NS 500 MG/250 ML BAG IVPB SCH (09:30)
[2018-12-07] MEDS: Albuterol/Ipratropium NEB.SOL* Albuterol 2.5 MG/Ipratropium 0.5 MG 3 ML INH SCH ×4 (09:30→23:31)
[2018-12-07] MEDS: fentaNYL PATCH 25 MCG/HR TRANSDERM SCH (10:49)
[2018-12-07] MEDS: Senna TAB PO SCH (11:02)
[2018-12-07] MEDS: oxyCODONE TAB* 5 MG TAB PO SCH ×4 (11:02→22:00)
[2018-12-07] MEDS: Magnesium Oxide TAB* 400 MG PO SCH (11:02)
[2018-12-07] MEDS: Docusate CAP* 100 MG PO SCH (11:03)
[2018-12-07] MEDS: Apixaban* 5 MG TAB PO SCH ×2 (11:03→21:52)
[2018-12-07] MEDS: Diltiazem CD CAP* 120 MG PO SCH (11:04)
[2018-12-07] MEDS: Acetaminophen TAB* 325 MG PO SCH ×4 (11:05→21:52)
[2018-12-07] MEDS: Pramipexole TAB* 0.5 MG PO SCH ×2 (11:06→21:53)
[2018-12-07] MEDS: Hydrochlorothiazide TAB* 25 MG PO SCH (11:06)
[2018-12-07] MEDS: Diazepam TAB(*) 5 MG PO SCH ×2 (11:07→21:52)
[2018-12-07] MEDS: Pregabalin CAP(*) 100 MG PO SCH ×3 (11:07→21:51)
[2018-12-07 11:58] LABS: C Reactive Protein 12.73 mg/L (<8.01)
[2018-12-07] MEDS: Fluticasone NASAL SPRAY 50MCG* 16 gm SPRAY BTL INTRANASAL SCH (13:10)
--- NOTE | 2018-12-07 14:48 | HP ---
HISTORY AND PHYSICAL: DATE OF ADMISSION: 12/07/18 ADMITTING PROVIDER: Farhad Gaffney MD. PRIMARY CARE PROVIDER: Lidia Marrero MD CHIEF COMPLAINT: Shortness of breath, productive cough, chest pain, and left scapular pain (for several weeks). HISTORY OF PRESENT ILLNESS: Elysia Regalado is a 73-year-old female with past medical history of chronic hypoxic respiratory failure (3L) secondary to COPD; current smoking (half pack per day, has been smoking for 50 years); diastolic CHF; hypertension; IA; critical aortic stenosis status post TAVR; hyperlipidemia ; paroxysmal atrial fibrillation on Eliquis; non-insulin dependent diabetes mellitus; peripheral vascular disease; and frequent falls from [facility]. The reason for transfer to [facility] was concern for possible UTI given aggressive behavior not inline with her normal baseline after she was found to be smoking in her room with other residents and her oxygen turned on x2 occasions on 12/05/18 and 12/06/18, both times she was aggressive. On , she started throwing a lamp across the room, overturning furniture, cut an electrical cord with scissors while the cord was plugged in and expressed not caring about whether or not she would or not as a result. On 12/06/18, again she was very agitated, threw her pills and water on the floor. She presented to [facility] and had a UA, which was not concerning for UTI. She had a slight leukocytosis of 11.4. She was afebrile. She was evaluated by psychiatric team including Dr. Ibarra and was cleared and did not think her behavior warranted admission. Transportation could not be arranged back to [facility] (as it is out of the [facility]) through [facility]. Later on, she was noted to be wheezing and the patient got Solu-Medrol 125 mg, Ventolin x3, magnesium. A CTA was performed to rule out pulmonary embolism and this was not seen. Also, she had an ABG, which showed pH of 7.42, pCO2 of 46, pO2 low at 65 , bicarb of 28.2. Despite the above treatments, she was still found to be wheezing and referred to hospital service for admission for COPD exacerbation. Elysia tells me that she has been having productive green thick cough for several weeks. Her chest is uncomfortable as well as her left scapula also for several weeks. Denies any fevers or chills. She occasionally brings up some blood with her cough. She states that she wants to find a different living situation, but is too sick to go to interview at the social security office. She fell last week and has frequent falls, uses a walker at baseline. She has frequent hip pain ever since her CVA that is sharp in nature, occasionally her legs go numb on her. PAST MEDICAL HISTORY: Chronic hypoxic respiratory failure with severe COPD on 3 L of nasal cannula 24x7, paroxysmal atrial fibrillation on Eliquis, depression , restless legs syndrome, hypothyroidism, CAD and status post IA, hypertension, hyperlipidemia, non-insulin dependent diabetes mellitus, diastolic CHF, seizure disorder, chronic pain on chronic opioids, GERD, peripheral vascular disease, gout, critical aortic stenosis status post TAVR, 4 CVAs, and carpal tunnel release. PAST SURGICAL HISTORY: Include TAVR, carpal tunnel release, cholecystectomy, and hysterectomy. HOME MEDICATIONS: Include: 1. Oxycodone/acetaminophen 7.5/325 mg, recently increased to 4 times a day from t.i.d. 2 days ago. 2. Incruse Ellipta 1 puff daily. 3. Hydrochlorothiazide 25 mg daily. 4. Benadryl 25 mg p.o. daily. 5. Lyrica 200 mg p.o. t.i.d. 6. Lipitor 40 mg q.h.s. 7. Albuterol 2.5 mg inhaled q.4 hours p.r.n. 8. Symbicort 2 puffs inhaled b.i.d. 9. Eliquis 5 mg p.o. b.i.d. 10. Pramipexole 1 mg p.o. b.i.d. 11. Magnesium oxide 400 mg p.o. daily. 12. Metformin 500 mg p.o. b.i.d. 13. Metoprolol succinate 25 mg p.o. daily. 14. Xyzal 5 mg p.o. daily. 15. Diazepam 5 mg p.o. b.i.d. 16. Albuterol HFA 2 puffs inhaled q.4 hours p.r.n. 17. Fentanyl patch 25 mcg q.72 hours. 18. Nitroglycerin 0.4 mg p.r.n. sublingually. 19. Hydrocortisone acetate 57gm topical t.i.d. p.r.n. 20. Nasacort 1 puff nasal daily. ALLERGIES: Include ASPIRIN, CARBAPENEM, CEPHALOSPORIN, KETORALAC, MORPHINE, PENICILLIN, BACTRIM; these are all unknown allergic reaction. FAMILY HISTORY: Mother of CHF in her 70s. Dad of heart attack in his 70s. Two brothers of drug abuse, both in their 30s. SOCIAL HISTORY: The patient is a current smoker, started at age 22, half a pack per day, occasional alcohol use, no marijuana or other drug use. 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 She says that most of her family has and her medical surrogate is her grandson, Omer Pugh. She desires to be no CPR , but would want a trial of intubation if necessary consistent with her prior MOLST form. REVIEW OF SYSTEMS: A 14-point review of systems is negative except as per HPI. She does state she has some chronic lower extremity edema. Her last bowel movement was a week ago, she says. Denies abdominal pain. PHYSICAL EXAMINATION GENERAL APPEARANCE: No acute distress, though chronically ill appearing. VITAL SIGNS: Temperature 96.8, pulse rate 78, oxygen sat 95% on 3 L oxygen, blood pressure 138/91. HEENT: Normocephalic, atraumatic. Pupils are equal, round and reactive to light. Extraocular motions intact. No scleral icterus. NECK: Supple. No cervical lymphadenopathy. LUNGS: With diffuse expiratory wheezing. No rhonchi. No rales. CARDIOVASCULAR: Regular rate and rhythm. No murmurs, rubs, or gallops. ABDOMEN: Soft, nontender, nondistended, but obese. No rebound or guarding. No Whipple sign. EXTREMITIES: Warm, well perfused. 1+ nonpitting edema bilaterally. SKIN: No lesions or rashes. NEUROLOGIC: Cranial nerves II through XII intact. Moving all extremities. DIAGNOSTIC STUDIES/LAB DATA: White count 11.4, hemoglobin 12.7, hematocrit 38 , platelets 104. INR 1.11. ABG: PH 7.4, pCO2 46, pO2 65, bicarb 28.2. Sodium 144, potassium 3.7, chloride 108, carbon dioxide 29, BUN 21, creatinine 0.80, glucose 100, calcium 9.1. Total bili 1.0, AST 19, ALT 20, alk phos 73. Troponin 0.01. Total protein 6.1. TSH 2.1. Urinalysis 1+ protein. Toxicology negative for salicylate and acetaminophen. Serum alcohol less than 10. Presumptive positive for urine benzodiazepines, otherwise, negative. Imaging: CT chest angiogram demonstrated: 1. No pulmonary embolus. 2. Small amount of fluid in the pericardial space. 3. Status post TAVR procedure. 4. Coronary artery calcifications. Chest x-ray, formal read pending, but no acute process per my read, evidence of COPD. EKG demonstrates Q-waves inferiorly that are chronic in III and aVF. There is no ST elevations or depressions. There is T-wave flattening in V1 and V2 and no evidence of left anterior fascicular block. QTc is 443. ASSESSMENT AND PLAN: 1. Elysia Regalado is a 73-year-old female with severe chronic obstructive pulmonary disease on 3 L and current smoking half-a-pack per day along with atrial fibrillation, congestive heart failure, myocardial infarction, hypertension, hyperlipidemia, restless legs, chronic opioid use, and insulin- dependent diabetes mellitus among other problems. She has had productive cough for more than a month, presents with wheezing and is complaining of chest discomfort radiating to the left shoulder also for several weeks. Secondary to chronic obstructive pulmonary disease exacerbation and we will continue steroids. She is status post 125 mg of Solu-Medrol in the emergency department , I am going to put her on 40 mg q.8 hours. We do not have her Incruse Ellipta here, I will put her on Spiriva. We do not have her Symbicort here, I will put her on Dulera and I am going to give her DuoNebs q.4 hours scheduled, q.2 hours p.r.n. I will start her on azithromycin given the chronic obstructive pulmonary disease exacerbation. Adding on CRP and Strep pneumoniae, urine antigen though I do not suspect she has any pneumonia per imaging results. 2. For her paroxysmal atrial fibrillation, continue her apixaban 5 mg p.o. b.i.d. 3. Coronary artery disease and hyperlipidemia. Continue her statin, Lipitor. We will hold her beta-juanito and substitute with calcium channel juanito in the setting of her severe chronic obstructive pulmonary disease exacerbation. 4. Hypertension. Continue her hydrochlorothiazide. I am going to switch her metoprolol to diltiazem given her severe chronic obstructive pulmonary disease. 5. Chronic pain. I will give her oxycodone 7.5 mg p.o. 4 times a day along with acetaminophen 325 mg p.o. 4 times a day along with her fentanyl patch and her Lyrica 200 mg p.o. t.i.d. 6. Restless legs. Continue pramipexole 1 mg p.o. b.i.d. 7. For anxiety, continue her Valium 5 mg p.o. b.i.d. 8. For non-insulin dependent diabetes mellitus, put her on sliding scale insulin with lispro q.a.c. and h.s. Hold her metformin given recent dye load with a CT angiogram. She does not have evidence of hyperglycemia here. 9. Code status. She is no CPR, but trial of intubation is okay. Signed her MOLST, which is unchanged. Her medical surrogate is her grandson, Omer Pugh. 10. She can eat heart-healthy carbohydrate diet. 11. DVT prophylaxis. She is already on Eliquis 5 mg p.o. b.i.d., which will be continued. 12. Disposition. We will order PT consult and social work consult given that she is expressing desire to apply for alternate living situation than the [facility], but feels too weak to actually get to the social security office to make an application. [id number]/[facility] #: [id number]
[2018-12-07] MEDS: methylPREDNISolone SOD 40 MG* 1 ML VIAL IV SCH ×2 (15:04→21:50)
[2018-12-07] MEDS: Albuterol/Ipratropium NEB.SOL* Albuterol 2.5 MG/Ipratropium 0.5 MG 3 ML INH PRN ×2 (18:06→19:34)
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
[2018-12-07] MEDS: Cetirizine* 10 MG TAB PO SCH (21:53)
[2018-12-07] MEDS: Atorvastatin* 40 MG TAB PO SCH (21:53)
[2018-12-07] MEDS: fentaNYL Patch Check Q Shift 1 NOTE FOLLOW UP SCH (22:01)
[2018-12-08] MEDS: Albuterol/Ipratropium NEB.SOL* Albuterol 2.5 MG/Ipratropium 0.5 MG 3 ML INH SCH ×5 (03:15→14:24)
[2018-12-08] MEDS: Acetaminophen TAB* 325 MG PO SCH ×4 (08:12→20:44)
[2018-12-08] MEDS: Diltiazem CD CAP* 120 MG PO SCH (08:12)
[2018-12-08] MEDS: Apixaban* 5 MG TAB PO SCH ×2 (08:12→20:45)
[2018-12-08] MEDS: Pramipexole TAB* 0.5 MG PO SCH ×2 (08:13→20:45)
[2018-12-08] MEDS: Hydrochlorothiazide TAB* 25 MG PO SCH (08:13)
[2018-12-08] MEDS: Pregabalin CAP(*) 100 MG PO SCH ×3 (08:13→20:42)
[2018-12-08] MEDS: Magnesium Oxide TAB* 400 MG PO SCH (08:13)
[2018-12-08] MEDS: Fluticasone NASAL SPRAY 50MCG* 16 gm SPRAY BTL INTRANASAL SCH (08:13)
[2018-12-08] MEDS: Docusate CAP* 100 MG PO SCH (08:13)
[2018-12-08] MEDS: Senna TAB PO SCH (08:14)
[2018-12-08 09:13] LABS: ABS Lymphocytes 0.8 10^3/ul (1.0-4.8); ABS Monocytes 0.5 10^3/ul (0-0.8); Hematocrit 36 % (35-47); Hemoglobin 12.1 g/dL (12.0-16.0); Lymphocyte % 7.9 %; Mean Corpuscular HGB Conc 34 g/dL (31-36); Mean Corpuscular Hemoglobin 32 pg (27-31); Mean Corpuscular Volume 93 fL (80-97); Mean Platelet Volume 10.1 fL (7.4-10.4); Platelet Count 110 10^3/uL (150-450); Red Blood Count 3.83 10^6 /uL (3.70-4.87); Red Cell Distribution Width 15 % (10-15); White Blood Count 10.3 10^3/uL (3.5-10.8)
[2018-12-08 09:20] LABS: BUN/Creatinine Ratio 42.7 (8-20); Calcium 9.2 mg/dL (8.6-10.3); EGFR African American 92.2 (>60); EGFR Non-African American 76.2 (>60); Potassium 3.9 mmol/L (3.5-5.0)
[2018-12-08] MEDS: Diazepam TAB(*) 5 MG PO SCH ×3 (10:00→20:45)
[2018-12-08] MEDS: oxyCODONE TAB* 5 MG TAB PO SCH ×4 (10:01→20:41)
[2018-12-08] MEDS: fentaNYL Patch Check Q Shift 1 NOTE FOLLOW UP SCH ×2 (10:03→20:49)
[2018-12-08] MEDS: methylPREDNISolone SOD 40 MG* 1 ML VIAL IV SCH ×3 (10:03→20:41)
[2018-12-08] MEDS: Azithromycin 500 mg/250 ml NS 500 MG/250 ML BAG IVPB SCH (14:07)
[2018-12-08] MEDS ORDERED: Albuterol/Ipratropium NEB.SOL* Albuterol 2.5 MG/Ipratropium 0.5 MG 3 ML INH PRN (14:28)
[2018-12-08] MEDS: Cetirizine* 10 MG TAB PO SCH (20:42)
[2018-12-08] MEDS: Atorvastatin* 40 MG TAB PO SCH (20:43)
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
[2018-12-08] MEDS ORDERED: Dextrose 50% Syringe 50 ML* 25 GM/50 ML SYRINGE IV PUSH PRN (23:41)
[2018-12-09] MEDS: oxyCODONE TAB* 5 MG TAB PO SCH ×5 (00:46→20:18)
[2018-12-09] MEDS ORDERED: oxyCODONE TAB* 5 MG TAB PO ONE (03:13)
[2018-12-09] MEDS: fentaNYL Patch Check Q Shift 1 NOTE FOLLOW UP SCH ×2 (07:03→19:12)
[2018-12-09] MEDS: Tiotropium CAP.INH* CAP.INH/18 MCG (USE ORDER SET !) INH SCH (08:24)
[2018-12-09] MEDS: Mometasone/Formoter 200/5 MDI INH SCH ×2 (08:24→19:11)
[2018-12-09] MEDS: Insulin LISPRO* 1 UNITS UNIT SUBCUT SCH ×4 (08:55→20:46)
[2018-12-09] MEDS: Magnesium Oxide TAB* 400 MG PO SCH (08:57)
[2018-12-09] MEDS: Docusate CAP* 100 MG PO SCH (08:57)
[2018-12-09] MEDS: Senna TAB PO SCH (08:57)
[2018-12-09] MEDS: Pramipexole TAB* 0.5 MG PO SCH (08:58)
[2018-12-09] MEDS: Apixaban* 5 MG TAB PO SCH ×2 (08:58→21:24)
[2018-12-09] MEDS: Pregabalin CAP(*) 100 MG PO SCH ×3 (08:59→20:18)
[2018-12-09] MEDS: Diltiazem CD CAP* 120 MG PO SCH (08:59)
[2018-12-09] MEDS: Acetaminophen TAB* 325 MG PO SCH ×4 (08:59→20:19)
[2018-12-09] MEDS ORDERED: predniSONE TAB* 20 MG PO SCH (09:00)
[2018-12-09] MEDS ORDERED: Spiriva Inhaler DEVICE* 1 EACH DEVICE INH ONE (09:00)
[2018-12-09] MEDS: Diazepam TAB(*) 5 MG PO SCH ×2 (09:00→20:20)
[2018-12-09] MEDS: Hydrochlorothiazide TAB* 25 MG PO SCH (09:05)
[2018-12-09] MEDS: Fluticasone NASAL SPRAY 50MCG* 16 gm SPRAY BTL INTRANASAL SCH (10:33)
[2018-12-09] MEDS: Albuterol/Ipratropium NEB.SOL* Albuterol 2.5 MG/Ipratropium 0.5 MG 3 ML INH PRN (13:06)
[2018-12-09] MEDS ORDERED: Furosemide IV* 10 MG/ML 2 ML VIAL (20 MG) IV ONE (13:17)
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
[2018-12-09] MEDS: Diazepam TAB(*) 5 MG PO PRN (14:44)
[2018-12-09] MEDS: Azithromycin 500 mg/250 ml NS 500 MG/250 ML BAG IVPB SCH (14:45)
[2018-12-09] MEDS: methylPREDNISolone SOD 40 MG* 1 ML VIAL IV SCH ×2 (14:45→21:24)
[2018-12-09] MEDS: Cetirizine* 10 MG TAB PO SCH (20:19)
[2018-12-09] MEDS: Atorvastatin* 40 MG TAB PO SCH (20:19)
[2018-12-09] MEDS: Pramipexole TAB* 0.125 MG PO SCH (21:23)
[2018-12-10] MEDS ORDERED: Atropine 1MG/ML INJ* 1 ML VIAL IV PUSH PRN (00:02)
[2018-12-10] MEDS: methylPREDNISolone SOD 40 MG* 1 ML VIAL IV SCH ×3 (05:31→20:44)
[2018-12-10] MEDS: fentaNYL Patch Check Q Shift 1 NOTE FOLLOW UP SCH ×2 (07:26→18:44)
[2018-12-10] MEDS: Tiotropium CAP.INH* CAP.INH/18 MCG (USE ORDER SET !) INH SCH (07:43)
[2018-12-10] MEDS: Mometasone/Formoter 200/5 MDI INH SCH ×2 (07:43→19:16)
[2018-12-10] MEDS: Docusate CAP* 100 MG PO SCH (08:59)
[2018-12-10] MEDS ORDERED: metFORMIN* 500 MG TAB PO SCH (09:00)
[2018-12-10] MEDS: Hydrochlorothiazide TAB* 25 MG PO SCH (09:00)
[2018-12-10] MEDS: Magnesium Oxide TAB* 400 MG PO SCH (09:00)
[2018-12-10] MEDS: Pramipexole TAB* 0.125 MG PO SCH (09:00)
[2018-12-10] MEDS: Apixaban* 5 MG TAB PO SCH ×2 (09:00→20:42)
[2018-12-10] MEDS: Pregabalin CAP(*) 100 MG PO SCH ×3 (09:02→20:44)
[2018-12-10] MEDS: Acetaminophen TAB* 325 MG PO SCH ×4 (09:02→20:42)
[2018-12-10] MEDS: Diazepam TAB(*) 5 MG PO SCH ×2 (09:02→20:42)
[2018-12-10] MEDS: Senna TAB PO SCH (09:02)
[2018-12-10] MEDS: oxyCODONE TAB* 5 MG TAB PO SCH ×4 (09:02→20:43)
[2018-12-10] MEDS: Insulin LISPRO* 1 UNITS UNIT SUBCUT SCH ×4 (09:03→20:47)
[2018-12-10] MEDS: fentaNYL PATCH 25 MCG/HR TRANSDERM SCH (09:11)
[2018-12-10] MEDS: Insulin GLARGINE(*) 1 UNITS UNIT SUBCUT SCH (09:14)
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
[2018-12-10] MEDS: Metoprolol Succinate XL TAB* 25 MG PO SCH (13:02)
[2018-12-10] MEDS: Fluticasone NASAL SPRAY 50MCG* 16 gm SPRAY BTL INTRANASAL SCH (13:02)
[2018-12-10] MEDS: amLODIPine TAB* 5 MG PO SCH (13:02)
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
[2018-12-10] MEDS: Azithromycin 500 mg/250 ml NS 500 MG/250 ML BAG IVPB SCH (14:54)
[2018-12-10] MEDS: Atorvastatin* 40 MG TAB PO SCH (20:42)
[2018-12-10] MEDS: Cetirizine* 10 MG TAB PO SCH (20:42)
[2018-12-10] MEDS: Pramipexole TAB* 0.5 MG PO SCH (20:47)
[2018-12-11 05:01] LABS: BUN/Creatinine Ratio 51.7 (8-20); Calcium 9.5 mg/dL (8.6-10.3); EGFR African American 77.7 (>60); EGFR Non-African American 64.2 (>60); Potassium 4.4 mmol/L (3.5-5.0)
[2018-12-11] MEDS: Acetaminophen TAB* 325 MG PO PRN (05:28)
[2018-12-11] MEDS: methylPREDNISolone SOD 40 MG* 1 ML VIAL IV SCH ×3 (05:31→21:49)
[2018-12-11] MEDS: fentaNYL Patch Check Q Shift 1 NOTE FOLLOW UP SCH ×2 (07:16→19:37)
[2018-12-11] MEDS: Tiotropium CAP.INH* CAP.INH/18 MCG (USE ORDER SET !) INH SCH (08:26)
[2018-12-11] MEDS: Mometasone/Formoter 200/5 MDI INH SCH ×2 (08:27→19:22)
[2018-12-11] MEDS: Insulin LISPRO* 1 UNITS UNIT SUBCUT SCH ×4 (08:58→21:47)
[2018-12-11] MEDS: Metoprolol Succinate XL TAB* 25 MG PO SCH (08:59)
[2018-12-11] MEDS: Insulin GLARGINE(*) 1 UNITS UNIT SUBCUT SCH (08:59)
[2018-12-11] MEDS: Pramipexole TAB* 0.5 MG PO SCH ×2 (09:00→21:46)
[2018-12-11] MEDS: oxyCODONE TAB* 5 MG TAB PO SCH ×4 (09:03→21:43)
[2018-12-11] MEDS: Diazepam TAB(*) 5 MG PO SCH ×2 (09:04→21:46)
[2018-12-11] MEDS: Hydrochlorothiazide TAB* 25 MG PO SCH (09:04)
[2018-12-11] MEDS: Senna TAB PO SCH (09:04)
[2018-12-11] MEDS: Docusate CAP* 100 MG PO SCH (09:04)
[2018-12-11] MEDS: Magnesium Oxide TAB* 400 MG PO SCH (09:05)
[2018-12-11] MEDS: Fluticasone NASAL SPRAY 50MCG* 16 gm SPRAY BTL INTRANASAL SCH (09:06)
[2018-12-11] MEDS: Apixaban* 5 MG TAB PO SCH ×2 (09:06→21:47)
[2018-12-11] MEDS: amLODIPine TAB* 5 MG PO SCH (09:06)
[2018-12-11] MEDS: Pregabalin CAP(*) 100 MG PO SCH ×3 (09:13→21:44)
[2018-12-11] MEDS ORDERED: Magnesium Sulfate 1 GM IV* 1 GM/100 ML BAG IV ONE (10:14)
[2018-12-11] MEDS: Azithromycin TAB* 250 MG PO SCH (14:36)
--- NOTE | 2018-12-11 16:53 | PN ---
Subjective Date of Service: 12/11/18 Interval History: Pt is more cooperative, agrees to cont to use 02 and to be discharged to [facility] once clinically stable, after d/w SW. Still significantly dyspneic, no new complaints Objective Active Medications: Acetaminophen (Tylenol Tab*) 650 mg PO Q6H PRN PRN Reason: PAIN - MILD Last Admin: 12/11/18 05:28 Dose: 650 mg Albuterol/Ipratropium (Duoneb (Albuterol 2.5 Mg/Ipratropium 0.5 Mg)) 1 neb INH [id number] AWAKE PRN PRN Reason: SOB/WHEEZING Last Admin: 12/09/18 13:06 Dose: 1 neb Amlodipine Besylate (Norvasc Tab*) 5 mg PO DAILY [facility] Last Admin: 12/11/18 09:06 Dose: 5 mg Apixaban (Eliquis*) 5 mg PO BID [facility] Last Admin: 12/11/18 09:06 Dose: 5 mg Atorvastatin Calcium (Lipitor*) 40 mg PO 2100 [facility] Last Admin: 12/10/18 20:42 Dose: 40 mg Atropine Sulfate (Atropine 1mg/Ml Inj*) 0.5 mg IV PUSH .Q5MIN PRN PRN Reason: HR <40 Azithromycin (Zithromax Tab*) 250 mg PO 1400 [facility] Last Admin: 12/11/18 14:36 Dose: 250 mg Cetirizine HCl (Zyrtec*) 10 mg PO BEDTIME [facility] Last Admin: 12/10/18 20:42 Dose: 10 mg Dextrose (D50w Syringe 50 Ml*) 12.5 gm IV PUSH .FOR FS < 60 - SS PRN PRN Reason: FS < 60 Diazepam (Valium Tab(*)) 5 mg PO BID [facility] Last Admin: 12/11/18 09:04 Dose: 5 mg Diazepam (Valium Tab(*)) 5 mg PO Q8H PRN PRN Reason: ANXIETY Last Admin: 12/09/18 14:44 Dose: 5 mg Diphenhydramine HCl (Benadryl Po*) 25 mg PO DAILY PRN PRN Reason: ITCHING Docusate Sodium (Colace Cap*) 200 mg PO DAILY [facility] Last Admin: 12/11/18 09:04 Dose: 200 mg Fentanyl (Duragesic Patch 25 Mcg/Hr*) 25 mcg TRANSDERM Q72H [facility] Last Admin: 12/10/18 09:11 Dose: 25 mcg Fluticasone Propionate (Flonase Nasal [place] 50mcg*) 1 spray INTRANASAL DAILY [facility] Last Admin: 12/11/18 09:06 Dose: 1 spray Hydrochlorothiazide (Hydrodiuril Tab*) 25 mg PO DAILY [facility] Last Admin: 12/11/18 09:04 Dose: 25 mg Insulin Glargine (Lantus(*)) 10 units SUBCUT Q24H [facility] Last Admin: 12/11/18 08:59 Dose: 2 unit Insulin Human Lispro (Humalog*) 0 units SUBCUT ACHS [facility]; Protocol Last Admin: 12/11/18 13:01 Dose: 6 units Magnesium Oxide (Magox 400 Tab*) 400 mg PO DAILY [facility] Last Admin: 12/11/18 09:05 Dose: 400 mg Methylprednisolone Sodium Succinate (Solu-Medrol 40 Mg) 40 mg IV Q8H [facility] Last Admin: 12/11/18 14:30 Dose: 40 mg Metoprolol Succinate (Toprol Xl Tab*) 25 mg PO DAILY [facility] Last Admin: 12/11/18 08:59 Dose: 25 mg Mometasone Furoate/Formoterol Fumar (Dulera 200/5 Mdi*) 2 puff INH BID [facility] Last Admin: 12/11/18 08:27 Dose: 2 puff Nitroglycerin (Nitroglycerin Tab 0.4 Mg*) 0.4 mg SL Q5M PRN PRN Reason: chest pain Pto: Hydrocortisone Acetate [Vanicream Hc] 57 Gm 0 gm TOPICAL TID PRN PRN Reason: DRY SKIN Oxycodone HCl (Roxycodone Tab*) 7.5 mg PO QID [facility] Last Admin: 12/11/18 13:02 Dose: 7.5 mg Pharmacy Profile Note (Fentanyl Patch Check Q Shift) 1 note FOLLOW UP 0700, 1900 [facility] Last Admin: 12/11/18 07:16 Dose: 1 note Polyethylene Glycol/Electrolytes (Miralax*) 17 gm PO DAILY PRN PRN Reason: CONSTIPATION Pramipexole Dihydrochloride (Mirapex Tab*) 1 mg PO BID [facility] Last Admin: 12/11/18 09:00 Dose: 1 mg Pregabalin (Lyrica Cap(*)) 100 mg PO TID [facility] Last Admin: 12/11/18 14:30 Dose: 100 mg Senna (Senokot Tab*) 2 tab PO DAILY [facility] Last Admin: 12/11/18 09:04 Dose: 2 tab Tiotropium [place] (Spiriva Cap.Inh*) 1 cap INH DAILY [facility] Last Admin: 12/11/18 08:26 Dose: 1 cap Vital Signs - 8 hr 12/11/18 12/11/18 12/11/18 09:03 09:04 09:13 Temperature Pulse Rate Respiratory 18 18 18 Rate Blood Pressure (mmHg) O2 Sat by Pulse Oximetry 12/11/18 12/11/18 12/11/18 11:32 12:00 12:50 Temperature 98.2 F Pulse Rate 44 Respiratory 18 18 16 Rate Blood Pressure 140/75 (mmHg) O2 Sat by Pulse 97 Oximetry 12/11/18 12/11/18 12/11/18 13:02 14:12 14:30 Temperature Pulse Rate Respiratory 18 16 16 Rate Blood Pressure (mmHg) O2 Sat by Pulse Oximetry 12/11/18 12/11/18 15:43 16:43 Temperature 98.6 F Pulse Rate 55 Respiratory 18 18 Rate Blood Pressure 142/71 (mmHg) O2 Sat by Pulse 99 Oximetry Oxygen Devices in Use Now: Nasal Cannula Appearance: 73 yo F in nAD, AAOx3 Eyes: No Scleral Icterus, PERRLA Ears/Nose/Mouth/Throat: NL Teeth, Lips, Gums, Mucous Membranes Moist Neck: NL Appearance and Movements; NL JVP, Trachea Midline Respiratory: Symmetrical Chest Expansion and Respiratory Effort, - - faint bibasiliar crackles Cardiovascular: NL Sounds; No Murmurs; No JVD, RRR Abdominal: NL Sounds; No Tenderness; No Distention Lymphatic: No Cervical Adenopathy Extremities: No Clubbing, Cyanosis, - - trace pedal edema b/l Skin: No Nodules or Sclerosis Neurological: Alert and Oriented x 3, NL Muscle Strength and Tone Result Diagrams: 12/08/18 08:25 12/11/18 04:37 Additional Lab and Data: Laboratory Results - last 24 hr 12/08/18 12/08/18 08:25 08:25 WBC 10.3 RBC 3.83 Hgb 12.1 Hct 36 MCV 93 MCH 32 H MCHC 34 RDW 15 Plt Count 110 L MPV 10.1 Neut % (Auto) 87.6 Lymph % (Auto) 7.9 Woods % (Auto) 4.4 Eos % (Auto) 0.0 Baso % (Auto) 0.1 Absolute Neuts (auto) 9.0 H Absolute Lymphs (auto) 0.8 L Absolute Monos (auto) 0.5 Absolute Eos (auto) 0.0 Absolute Basos (auto) 0.0 Absolute Nucleated RBC 0.0 Nucleated RBC % 0.0 Sodium 140 Potassium 3.9 Chloride 105 Carbon Dioxide 29 Anion Gap 6 BUN 32 H Creatinine 0.75 Est GFR ( Amer) 92.2 Est GFR (Non-Af Amer) 76.2 BUN/Creatinine Ratio 42.7 H Glucose 201 H Calcium 9.2 Troponin I 0.00 Microbiology and Other Data: Microbiology 12/07/18 00:14 Urine Streptococcus pneumoniae Ag Screen - Final Negative S. pneumo Antigen 12/07/18 08:59 Nasal Nasal Screen MRSA (PCR) - Final Mrsa Not Detected Assess/Plan/Problems-Billing Assessment: 73 year old female H chronic hypoxic respiratory failure, severe COPD, current smoker 1/2 ppd, MA, s/p TAVR, pAfib (on Eliquis, CVAs with left sided deficits, NIDDM p/w 2 months of progressive SOB and productive cough after verbal altercation between her and [facility] staff. COPD exacerbation. - Patient Problems (1) Acute and chronic respiratory failure with hypoxia Comment: Baseline 3L, currently on 10 L high flow [place]. Does not appear to be in CHF clinically. on 12/10/18 pt got upset and refuses 02, now agrees to current tx. secondary to severe COPD in acute exacerbation with current smoking. (2) COPD (chronic obstructive pulmonary disease) Comment: Exacerbation with acute on chronic respiratory failure. cont Solu Medrol - no taper for now cont Azithro Dulera(substitute for home Incruse Ellipta), duonebs, spiriva(for Anora Ellipta ) (3) CHF (congestive heart failure) Comment: not in acute exacerbation. diastolic dysfunction, ECHO Jan 2018 EF 55-60%, pt refuses Echo to be performed Continue HCTZ. substituted dilt 120 for metoprolol succinate 25mg given severity of COPD exacerbation and pt developed bradycardia and HTN. Went back to toprol 12/10/18, added Norvasc Follow Daily Weights and Strict I/O. (4) Diabetes Comment: lispro SSI qac hs Home Metformin 500mg BID held elevated given high dose steroids. Started Lantus 12/10/18 (5) HTN (hypertension) Comment: Continue HCTZ 25. metoprolol succinate 25mg Added Norvasc 5 mg 12/10/18, will increase to 10 mg 12/11/18 (6) History of CVA (cerebrovascular accident) Comment: continue lipitor 40mg and Eliquis 5 mg BID. has aspirin allergy. pAfib (7) Chronic back pain Comment: - home oxy 7.5mg q6, fentanyl patch 25mcg, lyrica 200mg TID (8) DVT prophylaxis Comment: Eliquis Status and Disposition: inpatient.
[2018-12-11] MEDS ORDERED: amLODIPine TAB* 5 MG PO ONE (17:02)
[2018-12-11] MEDS ORDERED: Furosemide IV* 10 MG/ML 2 ML VIAL (20 MG) IV ONE (17:11)
[2018-12-11] MEDS: Atorvastatin* 40 MG TAB PO SCH (21:44)
[2018-12-11] MEDS: Cetirizine* 10 MG TAB PO SCH (21:45)
[2018-12-12] MEDS: methylPREDNISolone SOD 40 MG* 1 ML VIAL IV SCH ×2 (05:58→13:00)
[2018-12-12] MEDS: fentaNYL Patch Check Q Shift 1 NOTE FOLLOW UP SCH ×2 (06:50→19:02)
[2018-12-12] MEDS: Mometasone/Formoter 200/5 MDI INH SCH ×2 (07:18→19:43)
[2018-12-12] MEDS: Tiotropium CAP.INH* CAP.INH/18 MCG (USE ORDER SET !) INH SCH (07:18)
[2018-12-12] MEDS: Hydrochlorothiazide TAB* 25 MG PO SCH (09:13)
[2018-12-12] MEDS: oxyCODONE TAB* 5 MG TAB PO SCH ×4 (09:13→21:42)
[2018-12-12] MEDS: Pregabalin CAP(*) 100 MG PO SCH ×3 (09:13→21:42)
[2018-12-12] MEDS: Diazepam TAB(*) 5 MG PO SCH ×2 (09:14→21:41)
[2018-12-12] MEDS: amLODIPine TAB* 5 MG PO SCH (09:14)
[2018-12-12] MEDS: Magnesium Oxide TAB* 400 MG PO SCH (09:14)
[2018-12-12] MEDS: Pramipexole TAB* 0.5 MG PO SCH ×2 (09:14→21:42)
[2018-12-12] MEDS: Insulin LISPRO* 1 UNITS UNIT SUBCUT SCH ×4 (09:15→21:44)
[2018-12-12] MEDS: Senna TAB PO SCH (09:15)
[2018-12-12] MEDS: Docusate CAP* 100 MG PO SCH (09:15)
[2018-12-12] MEDS: Insulin GLARGINE(*) 1 UNITS UNIT SUBCUT SCH (09:15)
[2018-12-12] MEDS: Metoprolol Succinate XL TAB* 25 MG PO SCH (09:15)
[2018-12-12] MEDS: Apixaban* 5 MG TAB PO SCH ×2 (09:15→21:41)
[2018-12-12] MEDS: Fluticasone NASAL SPRAY 50MCG* 16 gm SPRAY BTL INTRANASAL SCH (10:11)
[2018-12-12] MEDS: Azithromycin TAB* 250 MG PO SCH (13:00)
--- NOTE | 2018-12-12 13:35 | PN ---
Subjective Date of Service: 12/12/18 Interval History: Pt feels much better, wants to go home tomorrow Objective Active Medications: Acetaminophen (Tylenol Tab*) 650 mg PO Q6H PRN PRN Reason: PAIN - MILD Last Admin: 12/11/18 05:28 Dose: 650 mg Albuterol/Ipratropium (Duoneb (Albuterol 2.5 Mg/Ipratropium 0.5 Mg)) 1 neb INH [id number] AWAKE PRN PRN Reason: SOB/WHEEZING Last Admin: 12/09/18 13:06 Dose: 1 neb Amlodipine Besylate (Norvasc Tab*) 10 mg PO DAILY [facility] Last Admin: 12/12/18 09:14 Dose: 10 mg Apixaban (Eliquis*) 5 mg PO BID [facility] Last Admin: 12/12/18 09:15 Dose: 5 mg Atorvastatin Calcium (Lipitor*) 40 mg PO 2100 [facility] Last Admin: 12/11/18 21:44 Dose: 40 mg Atropine Sulfate (Atropine 1mg/Ml Inj*) 0.5 mg IV PUSH .Q5MIN PRN PRN Reason: HR <40 Azithromycin (Zithromax Tab*) 250 mg PO 1400 [facility] Stop: 12/12/18 23:59 Last Admin: 12/12/18 13:00 Dose: 250 mg Cetirizine HCl (Zyrtec*) 10 mg PO BEDTIME [facility] Last Admin: 12/11/18 21:45 Dose: 10 mg Dextrose (D50w Syringe 50 Ml*) 12.5 gm IV PUSH .FOR FS < 60 - SS PRN PRN Reason: FS < 60 Diazepam (Valium Tab(*)) 5 mg PO BID [facility] Last Admin: 12/12/18 09:14 Dose: 5 mg Diazepam (Valium Tab(*)) 5 mg PO Q8H PRN PRN Reason: ANXIETY Last Admin: 12/09/18 14:44 Dose: 5 mg Diphenhydramine HCl (Benadryl Po*) 25 mg PO DAILY PRN PRN Reason: ITCHING Docusate Sodium (Colace Cap*) 200 mg PO DAILY [facility] Last Admin: 12/12/18 09:15 Dose: 200 mg Fentanyl (Duragesic Patch 25 Mcg/Hr*) 25 mcg TRANSDERM Q72H [facility] Last Admin: 12/10/18 09:11 Dose: 25 mcg Fluticasone Propionate (Flonase Nasal [place] 50mcg*) 1 spray INTRANASAL DAILY [facility] Last Admin: 12/12/18 10:11 Dose: Not Given Hydrochlorothiazide (Hydrodiuril Tab*) 25 mg PO DAILY [facility] Last Admin: 12/12/18 09:13 Dose: 25 mg Insulin Glargine (Lantus(*)) 10 units SUBCUT Q24H [facility] Last Admin: 12/12/18 09:15 Dose: 10 unit Insulin Human Lispro (Humalog*) 0 units SUBCUT ACHS [facility]; Protocol Last Admin: 12/12/18 13:00 Dose: 2 units Magnesium Oxide (Magox 400 Tab*) 400 mg PO DAILY [facility] Last Admin: 12/12/18 09:14 Dose: 400 mg Metoprolol Succinate (Toprol Xl Tab*) 25 mg PO DAILY [facility] Last Admin: 12/12/18 09:15 Dose: 25 mg Mometasone Furoate/Formoterol Fumar (Dulera 200/5 Mdi*) 2 puff INH BID [facility] Last Admin: 12/12/18 07:18 Dose: 2 puff Nitroglycerin (Nitroglycerin Tab 0.4 Mg*) 0.4 mg SL Q5M PRN PRN Reason: chest pain Pto: Hydrocortisone Acetate [Vanicream Hc] 57 Gm 0 gm TOPICAL TID PRN PRN Reason: DRY SKIN Oxycodone HCl (Roxycodone Tab*) 7.5 mg PO QID [facility] Last Admin: 12/12/18 13:00 Dose: 7.5 mg Pharmacy Profile Note (Fentanyl Patch Check Q Shift) 1 note FOLLOW UP 0700, 1900 [facility] Last Admin: 12/12/18 06:50 Dose: 1 note Polyethylene Glycol/Electrolytes (Miralax*) 17 gm PO DAILY PRN PRN Reason: CONSTIPATION Pramipexole Dihydrochloride (Mirapex Tab*) 1 mg PO BID [facility] Last Admin: 12/12/18 09:14 Dose: 1 mg Pregabalin (Lyrica Cap(*)) 100 mg PO TID [facility] Last Admin: 12/12/18 12:59 Dose: 100 mg Senna (Senokot Tab*) 2 tab PO DAILY [facility] Last Admin: 12/12/18 09:15 Dose: 2 tab Tiotropium [place] (Spiriva Cap.Inh*) 1 cap INH DAILY [facility] Last Admin: 12/12/18 07:18 Dose: 1 cap Vital Signs - 8 hr 12/12/18 12/12/18 12/12/18 07:19 08:00 09:13 Temperature Pulse Rate 58 43 Respiratory 18 14 22 Rate Blood Pressure 149/68 (mmHg) O2 Sat by Pulse 93 88 Oximetry 12/12/18 12/12/18 12/12/18 09:14 12:00 12:07 Temperature 97.2 F Pulse Rate 76 Respiratory 22 14 18 Rate Blood Pressure 141/77 (mmHg) O2 Sat by Pulse 92 Oximetry 12/12/18 12/12/18 12:59 13:00 Temperature Pulse Rate Respiratory 18 18 Rate Blood Pressure (mmHg) O2 Sat by Pulse Oximetry Oxygen Devices in Use Now: High Flow Nasal Cannula Appearance: 73 yo F in nAD, aAOx3 Eyes: No Scleral Icterus, PERRLA, - - poor historian Ears/Nose/Mouth/Throat: NL Teeth, Lips, Gums, Mucous Membranes Moist Neck: NL Appearance and Movements; NL JVP, Trachea Midline Respiratory: Symmetrical Chest Expansion and Respiratory Effort, Clear to Auscultation Cardiovascular: NL Sounds; No Murmurs; No JVD, RRR Abdominal: NL Sounds; No Tenderness; No Distention, No Hepatosplenomegaly Lymphatic: No Cervical Adenopathy Extremities: No Edema, No Clubbing, Cyanosis, - Skin: No Rash or Ulcers, No Nodules or Sclerosis Neurological: Alert and Oriented x 3, NL Muscle Strength and Tone Result Diagrams: 12/08/18 08:25 12/11/18 04:37 Additional Lab and Data: Laboratory Results - last 24 hr 12/08/18 12/08/18 08:25 08:25 WBC 10.3 RBC 3.83 Hgb 12.1 Hct 36 MCV 93 MCH 32 H MCHC 34 RDW 15 Plt Count 110 L MPV 10.1 Neut % (Auto) 87.6 Lymph % (Auto) 7.9 [place] % (Auto) 4.4 Eos % (Auto) 0.0 Baso % (Auto) 0.1 Absolute Neuts (auto) 9.0 H Absolute Lymphs (auto) 0.8 L Absolute Monos (auto) 0.5 Absolute Eos (auto) 0.0 Absolute Basos (auto) 0.0 Absolute Nucleated RBC 0.0 Nucleated RBC % 0.0 Sodium 140 Potassium 3.9 Chloride 105 Carbon Dioxide 29 Anion Gap 6 BUN 32 H Creatinine 0.75 Est GFR ( Amer) 92.2 Est GFR (Non-Af Amer) 76.2 BUN/Creatinine Ratio 42.7 H Glucose 201 H Calcium 9.2 Troponin I 0.00 Microbiology and Other Data: Microbiology 12/07/18 00:14 Urine Streptococcus pneumoniae Ag Screen - Final Negative S. pneumo Antigen 12/07/18 08:59 Nasal Nasal Screen MRSA (PCR) - Final Mrsa Not Detected Assess/Plan/Problems-Billing Assessment: 73 year old female H chronic hypoxic respiratory failure, severe COPD, current smoker 1/2 ppd, [place], s/p TAVR, pAfib (on Eliquis, CVAs with left sided deficits, NIDDM p/w 2 months of progressive SOB and productive cough after verbal altercation between her and [facility] staff. COPD exacerbation. - Patient Problems (1) Acute and chronic respiratory failure with hypoxia Comment: Baseline 3L, currently 5 L high flow Nc due to acute hypoxemic respiratory failure. Does not appear to be in CHF clinically. on 12/10/18 pt got upset and refuses 02, now agrees to current tx. secondary to severe COPD in acute exacerbation with current smoking. (2) COPD (chronic obstructive pulmonary disease) Comment: Exacerbation with acute on chronic respiratory failure. cont Solu Medrol - will taper to Q12H today cont Azithro (last dose today) Dulera(substitute for home Incruse Ellipta), duonebs, spiriva(for Anora Ellipta ) (3) CHF (congestive heart failure) Comment: not in acute exacerbation. diastolic dysfunction, ECHO Jan 2018 EF 55-60%, pt refuses Echo to be performed Continue HCTZ. substituted dilt 120 for metoprolol succinate 25mg given severity of COPD exacerbation and pt developed bradycardia and HTN. Went back to toprol 12/10/18, added Norvasc Follow Daily Weights and Strict I/O. (4) Diabetes Comment: lispro SSI qac hs Home Metformin 500mg BID held elevated given high dose steroids. Started Lantus 12/10/18 (5) HTN (hypertension) Comment: Continue HCTZ 25. metoprolol succinate 25mg Added Norvasc 5 mg 12/10/18, increased to 10 mg 12/11/18 (6) History of CVA (cerebrovascular accident) Comment: continue lipitor 40mg and Eliquis 5 mg BID. has aspirin allergy. pAfib (7) Chronic back pain Comment: - home oxy 7.5mg q6, fentanyl patch 25mcg, lyrica 200mg TID (8) DVT prophylaxis Comment: Eliquis Status and Disposition: inpatient. hypoxemia slowly improving, may be able to do home tomorrow
[2018-12-12] MEDS: Cetirizine* 10 MG TAB PO SCH (21:41)
[2018-12-12] MEDS: Atorvastatin* 40 MG TAB PO SCH (21:41)
[2018-12-13] MEDS ORDERED: methylPREDNISolone SOD 40 MG* 1 ML VIAL IV SCH (01:00)
[2018-12-13] MEDS: fentaNYL Patch Check Q Shift 1 NOTE FOLLOW UP SCH ×2 (06:37→19:01)
[2018-12-13] MEDS: Mometasone/Formoter 200/5 MDI INH SCH ×2 (07:34→19:34)
[2018-12-13] MEDS: Tiotropium CAP.INH* CAP.INH/18 MCG (USE ORDER SET !) INH SCH (07:34)
[2018-12-13] MEDS: Metoprolol Succinate XL TAB* 25 MG PO SCH (08:59)
[2018-12-13] MEDS: Hydrochlorothiazide TAB* 25 MG PO SCH (08:59)
[2018-12-13] MEDS: Pramipexole TAB* 0.5 MG PO SCH ×2 (08:59→21:33)
[2018-12-13] MEDS: Polyethylene Glycol 3350* 17 GM PACKET PO PRN (08:59)
[2018-12-13] MEDS: Magnesium Oxide TAB* 400 MG PO SCH (08:59)
[2018-12-13] MEDS: Pregabalin CAP(*) 100 MG PO SCH ×3 (08:59→21:34)
[2018-12-13] MEDS: Docusate CAP* 100 MG PO SCH (08:59)
[2018-12-13] MEDS: Apixaban* 5 MG TAB PO SCH ×2 (09:00→21:33)
[2018-12-13] MEDS: Diazepam TAB(*) 5 MG PO SCH ×2 (09:00→21:34)
[2018-12-13] MEDS: Senna TAB PO SCH (09:00)
[2018-12-13] MEDS: amLODIPine TAB* 5 MG PO SCH (09:00)
[2018-12-13] MEDS: Insulin LISPRO* 1 UNITS UNIT SUBCUT SCH ×4 (09:00→21:36)
[2018-12-13] MEDS: oxyCODONE TAB* 5 MG TAB PO SCH ×4 (09:00→21:35)
[2018-12-13] MEDS: fentaNYL PATCH 25 MCG/HR TRANSDERM SCH (09:01)
[2018-12-13] MEDS: Insulin GLARGINE(*) 1 UNITS UNIT SUBCUT SCH (09:01)
[2018-12-13] MEDS: Fluticasone NASAL SPRAY 50MCG* 16 gm SPRAY BTL INTRANASAL SCH (09:01)
--- NOTE | 2018-12-13 12:30 | PN ---
Subjective Date of Service: 12/13/18 Interval History: Pt feels much better and is in better spirits. Agrees to stay 1-2 days more before d/c. On high flow 02 at 5L, desaturates easily when walking Objective Active Medications: Acetaminophen (Tylenol Tab*) 650 mg PO Q6H PRN PRN Reason: PAIN - MILD Last Admin: 12/11/18 05:28 Dose: 650 mg Albuterol/Ipratropium (Duoneb (Albuterol 2.5 Mg/Ipratropium 0.5 Mg)) 1 neb INH [id number] AWAKE PRN PRN Reason: SOB/WHEEZING Last Admin: 12/09/18 13:06 Dose: 1 neb Amlodipine Besylate (Norvasc Tab*) 10 mg PO DAILY [facility] Last Admin: 12/13/18 09:00 Dose: 10 mg Apixaban (Eliquis*) 5 mg PO BID [facility] Last Admin: 12/13/18 09:00 Dose: 5 mg Atorvastatin Calcium (Lipitor*) 40 mg PO 2100 [facility] Last Admin: 12/12/18 21:41 Dose: 40 mg Atropine Sulfate (Atropine 1mg/Ml Inj*) 0.5 mg IV PUSH .Q5MIN PRN PRN Reason: HR <40 Cetirizine HCl (Zyrtec*) 10 mg PO BEDTIME [facility] Last Admin: 12/12/18 21:41 Dose: 10 mg Dextrose (D50w Syringe 50 Ml*) 12.5 gm IV PUSH .FOR FS < 60 - SS PRN PRN Reason: FS < 60 Diazepam (Valium Tab(*)) 5 mg PO BID [facility] Last Admin: 12/13/18 09:00 Dose: 5 mg Diazepam (Valium Tab(*)) 5 mg PO Q8H PRN PRN Reason: ANXIETY Last Admin: 12/09/18 14:44 Dose: 5 mg Diphenhydramine HCl (Benadryl Po*) 25 mg PO DAILY PRN PRN Reason: ITCHING Docusate Sodium (Colace Cap*) 200 mg PO DAILY [facility] Last Admin: 12/13/18 08:59 Dose: 200 mg Fentanyl (Duragesic Patch 25 Mcg/Hr*) 25 mcg TRANSDERM Q72H [facility] Last Admin: 12/13/18 09:01 Dose: 25 mcg Fluticasone Propionate (Flonase Nasal [place] 50mcg*) 1 spray INTRANASAL DAILY [facility] Last Admin: 12/13/18 09:01 Dose: Not Given Hydrochlorothiazide (Hydrodiuril Tab*) 25 mg PO DAILY [facility] Last Admin: 12/13/18 08:59 Dose: 25 mg Insulin Glargine (Lantus(*)) 10 units SUBCUT Q24H [facility] Last Admin: 12/13/18 09:01 Dose: 10 unit Insulin Human Lispro (Humalog*) 0 units SUBCUT ACHS [facility]; Protocol Last Admin: 12/13/18 09:00 Dose: 2 units Magnesium Oxide (Magox 400 Tab*) 400 mg PO DAILY [facility] Last Admin: 12/13/18 08:59 Dose: 400 mg Methylprednisolone Sodium Succinate (Solu-Medrol 40 Mg) 40 mg IV Q12H [facility] Last Admin: 12/13/18 01:00 Dose: 40 mg Metoprolol Succinate (Toprol Xl Tab*) 25 mg PO DAILY [facility] Last Admin: 12/13/18 08:59 Dose: 25 mg Mometasone Furoate/Formoterol Fumar (Dulera 200/5 Mdi*) 2 puff INH BID [facility] Last Admin: 12/13/18 07:34 Dose: 2 puff Nitroglycerin (Nitroglycerin Tab 0.4 Mg*) 0.4 mg SL Q5M PRN PRN Reason: chest pain Pto: Hydrocortisone Acetate [Vanicream Hc] 57 Gm 0 gm TOPICAL TID PRN PRN Reason: DRY SKIN Oxycodone HCl (Roxycodone Tab*) 7.5 mg PO QID [facility] Last Admin: 12/13/18 09:00 Dose: 7.5 mg Pharmacy Profile Note (Fentanyl Patch Check Q Shift) 1 note FOLLOW UP 0700, 1900 [facility] Last Admin: 12/13/18 06:37 Dose: 1 note Polyethylene Glycol/Electrolytes (Miralax*) 17 gm PO DAILY PRN PRN Reason: CONSTIPATION Last Admin: 12/13/18 08:59 Dose: 17 gm Pramipexole Dihydrochloride (Mirapex Tab*) 1 mg PO BID [facility] Last Admin: 12/13/18 08:59 Dose: 1 mg Pregabalin (Lyrica Cap(*)) 100 mg PO TID [facility] Last Admin: 12/13/18 08:59 Dose: 100 mg Senna (Senokot Tab*) 2 tab PO DAILY [facility] Last Admin: 12/13/18 09:00 Dose: 2 tab Tiotropium [place] (Spiriva Cap.Inh*) 1 cap INH DAILY [facility] Last Admin: 12/13/18 07:34 Dose: 1 cap Vital Signs - 8 hr 12/13/18 12/13/18 12/13/18 07:34 08:00 08:50 Temperature 98.2 F Pulse Rate 51 54 74 Respiratory 24 Rate Blood Pressure 146/72 (mmHg) O2 Sat by Pulse 93 95 Oximetry 12/13/18 12/13/18 12/13/18 08:59 09:00 09:01 Temperature Pulse Rate Respiratory 22 22 22 Rate Blood Pressure (mmHg) O2 Sat by Pulse Oximetry 12/13/18 11:32 Temperature 98.8 F Pulse Rate 72 Respiratory 20 Rate Blood Pressure 146/65 (mmHg) O2 Sat by Pulse 94 Oximetry Oxygen Devices in Use Now: Nasal Cannula Appearance: 73 yo f in nAD, aAOx3 Eyes: No Scleral Icterus, PERRLA Ears/Nose/Mouth/Throat: NL Teeth, Lips, Gums, Mucous Membranes Moist Neck: NL Appearance and Movements; NL JVP, Trachea Midline Respiratory: Symmetrical Chest Expansion and Respiratory Effort, Clear to Auscultation Cardiovascular: NL Sounds; No Murmurs; No JVD, RRR Abdominal: NL Sounds; No Tenderness; No Distention Lymphatic: No Cervical Adenopathy Extremities: No Clubbing, Cyanosis, - - trace pedal edema Skin: No Rash or Ulcers, No Nodules or Sclerosis Neurological: Alert and Oriented x 3, NL Muscle Strength and Tone Result Diagrams: 12/08/18 08:25 12/11/18 04:37 Additional Lab and Data: Laboratory Results - last 24 hr 12/08/18 12/08/18 08:25 08:25 WBC 10.3 RBC 3.83 Hgb 12.1 Hct 36 MCV 93 MCH 32 H MCHC 34 RDW 15 Plt Count 110 L MPV 10.1 Neut % (Auto) 87.6 Lymph % (Auto) 7.9 [place] % (Auto) 4.4 Eos % (Auto) 0.0 Baso % (Auto) 0.1 Absolute Neuts (auto) 9.0 H Absolute Lymphs (auto) 0.8 L Absolute Monos (auto) 0.5 Absolute Eos (auto) 0.0 Absolute Basos (auto) 0.0 Absolute Nucleated RBC 0.0 Nucleated RBC % 0.0 Sodium 140 Potassium 3.9 Chloride 105 Carbon Dioxide 29 Anion Gap 6 BUN 32 H Creatinine 0.75 Est GFR ( Amer) 92.2 Est GFR (Non-Af Amer) 76.2 BUN/Creatinine Ratio 42.7 H Glucose 201 H Calcium 9.2 Troponin I 0.00 Microbiology and Other Data: Microbiology 12/07/18 00:14 Urine Streptococcus pneumoniae Ag Screen - Final Negative S. pneumo Antigen 12/07/18 08:59 Nasal Nasal Screen MRSA (PCR) - Final Mrsa Not Detected Assess/Plan/Problems-Billing Assessment: 73 year old female H chronic hypoxic respiratory failure, severe COPD, current smoker 1/2 ppd, [place], s/p TAVR, pAfib (on Eliquis, CVAs with left sided deficits, NIDDM p/w 2 months of progressive SOB and productive cough after verbal altercation between her and [facility] staff. COPD exacerbation. - Patient Problems (1) Acute and chronic respiratory failure with hypoxia Comment: Baseline 3L, currently 5 L high flow Nc due to acute hypoxemic respiratory failure. Does not appear to be in CHF clinically. on 12/10/18 pt got upset and refused 02, now agrees to current tx. secondary to severe COPD in acute exacerbation with current smoking. will need 1-2 more days of acute stay due to hypoxemia (2) COPD (chronic obstructive pulmonary disease) Comment: Exacerbation with acute on chronic respiratory failure. will switch Solu Medrol Q12H to Prednisone daily today completed Azithro -last dose 12/12/18 Dulera(substitute for home Incruse Ellipta), duonebs, spiriva(for Anora Ellipta ) (3) CHF (congestive heart failure) Comment: not in acute exacerbation. diastolic dysfunction, ECHO Jan 2018 EF 55-60%, pt refuses Echo to be performed Continue HCTZ. substituted dilt 120 for metoprolol succinate 25mg given severity of COPD exacerbation and pt developed bradycardia and HTN. Went back to toprol 12/10/18, added Norvasc Follow Daily Weights and Strict I/O. (4) Diabetes Comment: lispro SSI qac hs Home Metformin 500mg BID restarted today elevated given high dose steroids. Started Lantus 12/10/18 (5) HTN (hypertension) Comment: Continue HCTZ 25. metoprolol succinate 25mg Added Norvasc 5 mg 12/10/18, increased to 10 mg 12/11/18 (6) History of CVA (cerebrovascular accident) Comment: continue lipitor 40mg and Eliquis 5 mg BID. has aspirin allergy. pAfib (7) Chronic back pain Comment: - home oxy 7.5mg q6, fentanyl patch 25mcg, lyrica 200mg TID (8) DVT prophylaxis Comment: Eliquis Status and Disposition: inpatient. hypoxemia slowly improving. d/c to [facility] when medially stable
[2018-12-13] MEDS: metFORMIN* 500 MG TAB PO SCH (16:06)
[2018-12-13] MEDS: Albuterol/Ipratropium NEB.SOL* Albuterol 2.5 MG/Ipratropium 0.5 MG 3 ML INH PRN (19:39)
[2018-12-13] MEDS: Atorvastatin* 40 MG TAB PO SCH (21:33)
[2018-12-13] MEDS: Cetirizine* 10 MG TAB PO SCH (21:33)
[2018-12-14] MEDS: fentaNYL Patch Check Q Shift 1 NOTE FOLLOW UP SCH ×2 (06:18→18:42)
[2018-12-14] MEDS: Pregabalin CAP(*) 100 MG PO SCH ×3 (07:17→22:35)
[2018-12-14] MEDS: Senna TAB PO SCH (07:18)
[2018-12-14] MEDS: amLODIPine TAB* 5 MG PO SCH (07:18)
[2018-12-14] MEDS: Apixaban* 5 MG TAB PO SCH ×2 (07:18→22:34)
[2018-12-14] MEDS: predniSONE TAB* 50 MG PO SCH (07:18)
[2018-12-14] MEDS: Pramipexole TAB* 0.5 MG PO SCH ×2 (07:18→22:35)
[2018-12-14] MEDS: Metoprolol Succinate XL TAB* 25 MG PO SCH (07:18)
[2018-12-14] MEDS: Hydrochlorothiazide TAB* 25 MG PO SCH (07:18)
[2018-12-14] MEDS: metFORMIN* 500 MG TAB PO SCH ×2 (07:18→16:57)
[2018-12-14] MEDS: Diazepam TAB(*) 5 MG PO SCH ×2 (07:19→22:34)
[2018-12-14] MEDS: Docusate CAP* 100 MG PO SCH (07:19)
[2018-12-14] MEDS: Magnesium Oxide TAB* 400 MG PO SCH (07:19)
[2018-12-14] MEDS: Fluticasone NASAL SPRAY 50MCG* 16 gm SPRAY BTL INTRANASAL SCH (07:20)
[2018-12-14] MEDS: Mometasone/Formoter 200/5 MDI INH SCH ×3 (07:48→19:33)
[2018-12-14] MEDS: Tiotropium CAP.INH* CAP.INH/18 MCG (USE ORDER SET !) INH SCH (07:49)
[2018-12-14] MEDS: Insulin LISPRO* 1 UNITS UNIT SUBCUT SCH ×4 (08:26→22:42)
[2018-12-14] MEDS: Insulin GLARGINE(*) 1 UNITS UNIT SUBCUT SCH (09:29)
--- NOTE | 2018-12-14 15:04 | PN ---
Subjective Date of Service: 12/14/18 Interval History: Reports improvement in breathing.but still on 5l and desats on walking. on 3l chronically Objective Active Medications: Acetaminophen (Tylenol Tab*) 650 mg PO Q6H PRN PRN Reason: PAIN - MILD Last Admin: 12/11/18 05:28 Dose: 650 mg Albuterol/Ipratropium (Duoneb (Albuterol 2.5 Mg/Ipratropium 0.5 Mg)) 1 neb INH [id number] AWAKE PRN PRN Reason: SOB/WHEEZING Last Admin: 12/13/18 19:39 Dose: 1 neb Amlodipine Besylate (Norvasc Tab*) 10 mg PO DAILY [facility] Last Admin: 12/14/18 07:18 Dose: 10 mg Apixaban (Eliquis*) 5 mg PO BID [facility] Last Admin: 12/14/18 07:18 Dose: 5 mg Atorvastatin Calcium (Lipitor*) 40 mg PO 2100 [facility] Last Admin: 12/13/18 21:33 Dose: 40 mg Atropine Sulfate (Atropine 1mg/Ml Inj*) 0.5 mg IV PUSH .Q5MIN PRN PRN Reason: HR <40 Cetirizine HCl (Zyrtec*) 10 mg PO BEDTIME [facility] Last Admin: 12/13/18 21:33 Dose: 10 mg Dextrose (D50w Syringe 50 Ml*) 12.5 gm IV PUSH .FOR FS < 60 - SS PRN PRN Reason: FS < 60 Diazepam (Valium Tab(*)) 5 mg PO BID [facility] Last Admin: 12/14/18 07:19 Dose: 5 mg Diazepam (Valium Tab(*)) 5 mg PO Q8H PRN PRN Reason: ANXIETY Last Admin: 12/09/18 14:44 Dose: 5 mg Diphenhydramine HCl (Benadryl Po*) 25 mg PO DAILY PRN PRN Reason: ITCHING Docusate Sodium (Colace Cap*) 200 mg PO DAILY [facility] Last Admin: 12/14/18 07:19 Dose: 200 mg Fluticasone Propionate (Flonase Nasal [place] 50mcg*) 1 spray INTRANASAL DAILY [facility] Last Admin: 12/14/18 07:20 Dose: Not Given Hydrochlorothiazide (Hydrodiuril Tab*) 25 mg PO DAILY [facility] Last Admin: 12/14/18 07:18 Dose: 25 mg Insulin Glargine (Lantus(*)) 10 units SUBCUT Q24H [facility] Last Admin: 12/14/18 09:29 Dose: 10 unit Insulin Human Lispro (Humalog*) 0 units SUBCUT ACHS [facility]; Protocol Last Admin: 12/14/18 12:24 Dose: 2 units Magnesium Oxide (Magox 400 Tab*) 400 mg PO DAILY [facility] Last Admin: 12/14/18 07:19 Dose: 400 mg Metformin HCl (Glucophage*) 500 mg PO 0800,1700 [facility] Last Admin: 12/14/18 07:18 Dose: 500 mg Metoprolol Succinate (Toprol Xl Tab*) 25 mg PO DAILY [facility] Last Admin: 12/14/18 07:18 Dose: 25 mg Mometasone Furoate/Formoterol Fumar (Dulera 200/5 Mdi*) 2 puff INH BID [facility] Last Admin: 12/14/18 07:48 Dose: 2 puff Nitroglycerin (Nitroglycerin Tab 0.4 Mg*) 0.4 mg SL Q5M PRN PRN Reason: chest pain Pto: Hydrocortisone Acetate [Vanicream Hc] 57 Gm 0 gm TOPICAL TID PRN PRN Reason: DRY SKIN Pharmacy Profile Note (Fentanyl Patch Check Q Shift) 1 note FOLLOW UP 0700, 1900 [facility] Last Admin: 12/14/18 06:18 Dose: 1 note Polyethylene Glycol/Electrolytes (Miralax*) 17 gm PO DAILY PRN PRN Reason: CONSTIPATION Last Admin: 12/13/18 08:59 Dose: 17 gm Pramipexole Dihydrochloride (Mirapex Tab*) 1 mg PO BID [facility] Last Admin: 12/14/18 07:18 Dose: 1 mg Prednisone (Deltasone Tab*) 50 mg PO DAILY [facility] Last Admin: 12/14/18 07:18 Dose: 50 mg Pregabalin (Lyrica Cap(*)) 100 mg PO TID [facility] Last Admin: 12/14/18 12:24 Dose: 100 mg Senna (Senokot Tab*) 2 tab PO DAILY [facility] Last Admin: 12/14/18 07:18 Dose: 2 tab Tiotropium [place] (Spiriva Cap.Inh*) 1 cap INH DAILY [facility] Last Admin: 12/14/18 07:49 Dose: 1 cap Vital Signs - 8 hr 12/14/18 12/14/18 12/14/18 07:14 07:17 07:19 Temperature 98.1 F Pulse Rate 70 Respiratory 20 20 20 Rate Blood Pressure 148/69 (mmHg) O2 Sat by Pulse 92 Oximetry 12/14/18 12/14/18 12/14/18 07:24 07:51 09:22 Temperature Pulse Rate 56 Respiratory 20 16 18 Rate Blood Pressure (mmHg) O2 Sat by Pulse 96 Oximetry 12/14/18 12/14/18 12/14/18 11:30 12:24 13:47 Temperature 98.5 F Pulse Rate 65 Respiratory 20 20 18 Rate Blood Pressure 121/75 (mmHg) O2 Sat by Pulse 95 Oximetry Oxygen Devices in Use Now: Nasal Cannula Ears/Nose/Mouth/Throat: NL Teeth, Lips, Gums Neck: NL Appearance and Movements; NL JVP Respiratory: Symmetrical Chest Expansion and Respiratory Effort, Clear to Auscultation Cardiovascular: NL Sounds; No Murmurs; No JVD, RRR Abdominal: NL Sounds; No Tenderness; No Distention Extremities: No Edema Neurological: Alert and Oriented x 3 Result Diagrams: 12/08/18 08:25 12/11/18 04:37 Additional Lab and Data: Laboratory Results - last 24 hr 12/08/18 12/08/18 08:25 08:25 WBC 10.3 RBC 3.83 Hgb 12.1 Hct 36 MCV 93 MCH 32 H MCHC 34 RDW 15 Plt Count 110 L MPV 10.1 Neut % (Auto) 87.6 Lymph % (Auto) 7.9 [place] % (Auto) 4.4 Eos % (Auto) 0.0 Baso % (Auto) 0.1 Absolute Neuts (auto) 9.0 H Absolute Lymphs (auto) 0.8 L Absolute Monos (auto) 0.5 Absolute Eos (auto) 0.0 Absolute Basos (auto) 0.0 Absolute Nucleated RBC 0.0 Nucleated RBC % 0.0 Sodium 140 Potassium 3.9 Chloride 105 Carbon Dioxide 29 Anion Gap 6 BUN 32 H Creatinine 0.75 Est GFR ( Amer) 92.2 Est GFR (Non-Af Amer) 76.2 BUN/Creatinine Ratio 42.7 H Glucose 201 H Calcium 9.2 Troponin I 0.00 Microbiology and Other Data: Microbiology 12/07/18 00:14 Urine Streptococcus pneumoniae Ag Screen - Final Negative S. pneumo Antigen 12/07/18 08:59 Nasal Nasal Screen MRSA (PCR) - Final Mrsa Not Detected Assess/Plan/Problems-Billing Assessment: 73 year old female PMH chronic hypoxic respiratory failure, severe COPD, current smoker 1/2 ppd, [place], s/p TAVR, pAfib (on Eliquis, CVAs with left sided deficits, NIDDM p/w 2 months of progressive SOB and productive cough after verbal altercation between her and [facility] staff. COPD exacerbation. - Patient Problems (1) Acute and chronic respiratory failure with hypoxia Current Visit: Yes Status: Acute Code(s): J96.21 - ACUTE AND CHRONIC RESPIRATORY FAILURE WITH HYPOXIA SNOMED Code(s): 56246879 Comment: Baseline 3L, currently 5 L high flow Nc due to acute hypoxemic respiratory failure. Does not appear to be in CHF clinically. on 12/10/18 pt got upset and refused 02, now agrees to current tx. secondary to severe COPD in acute exacerbation with current smoking. will need 1-2 more days of acute stay due to hypoxemia (2) CHF (congestive heart failure) Current Visit: No Status: Chronic Priority: High Code(s): I50.9 - HEART FAILURE, UNSPECIFIED SNOMED Code(s): 42017415 Comment: not in acute exacerbation. diastolic dysfunction, ECHO Jan 2018 EF 55-60%, pt refuses Echo to be performed Continue HCTZ. substituted dilt 120 for metoprolol succinate 25mg given severity of COPD exacerbation and pt developed bradycardia and HTN. Went back to toprol 12/10/18, added Norvasc Follow Daily Weights and Strict I/O. (3) COPD (chronic obstructive pulmonary disease) Current Visit: No Status: Chronic Priority: High Code(s): J44.9 - CHRONIC OBSTRUCTIVE PULMONARY DISEASE, UNSPECIFIED SNOMED Code(s): 21870524 Comment: Exacerbation with acute on chronic respiratory failure. will switch Solu Medrol Q12H to Prednisone daily today completed Azithro -last dose 12/12/18 Dulera(substitute for home Incruse Ellipta), duonebs, spiriva(for Anora Ellipta ) (4) Diabetes Current Visit: No Status: Chronic Priority: High Code(s): E11.9 - TYPE 2 DIABETES MELLITUS WITHOUT COMPLICATIONS SNOMED Code(s): 97621078 Comment: lispro SSI qac hs Home Metformin 500mg BID restarted today elevated given high dose steroids. Started Lantus 12/10/18 (5) HTN (hypertension) Current Visit: No Status: Chronic Priority: High Code(s): I10 - ESSENTIAL (PRIMARY) HYPERTENSION SNOMED Code(s): 63819319 Comment: Continue HCTZ 25. metoprolol succinate 25mg Added Norvasc 5 mg 12/10/18, increased to 10 mg 12/11/18 (6) History of CVA (cerebrovascular accident) Current Visit: No Status: Chronic Priority: High Code(s): Z86.73 - PRSNL HX OF TIA (TIA), AND CEREB INFRC W/O RESID DEFICITS SNOMED Code(s): 349383757 Comment: continue lipitor 40mg and Eliquis 5 mg BID. has aspirin allergy. pAfib Status and Disposition: inpatient. hypoxemia slowly improving. d/c to [facility] when medially stable
[2018-12-14] MEDS: Nitroglycerin TAB 0.4 MG* 0.4 MG TAB SL PRN ×7 (20:34→23:48)
[2018-12-14] MEDS ORDERED: Diltiazem DRIP* 100 MG/100 ML ADDV.BAG IV SCH ×2 (21:00→21:30)
[2018-12-14] MEDS ORDERED: Digoxin IV* 0.5 MG/2 ML AMP (0.25 MG/ML) ONE (21:04)
[2018-12-14] MEDS ORDERED: Diltiazem IV push/loading dose 5 MG/ML 5 ML vial (25 mg) IV SLOW PU ONE (21:04)
[2018-12-14] MEDS ORDERED: Diltiazem IV push/loading dose 5 MG/ML 5 ML vial (25 mg) ONE (21:04)
[2018-12-14] MEDS ORDERED: Digoxin IV* 0.5 MG/2 ML AMP (0.25 MG/ML) IV SLOW PU ONE (21:06)
--- NOTE | 2018-12-14 21:06 | PN ---
Hospitalist Progress Note Date of Service: 12/14/18 Was called about HR being elevated. Patient complained of chest pain and shortness of breath. Physical Exam Vital Signs: Temp Pulse Resp BP Pulse Ox 98.5 F 68 24 119/69 91 12/14/18 19:25 12/14/18 19:25 12/14/18 19:25 12/14/18 19:25 12/14/18 19:25 HR noted to be variable on monitor up to 160s. Lungs: Clear to auscultation. Abdomen: Soft. Extremities: No edema. EKG noted to be in A. Fib with RVR and some ST changes. Stat portable CXR looks clear. Assessment Chest Pain secondary to A. Fib with RVR. Plan Transfer to ICU. Spoke with ocean export coordinator regarding ST segment changes who said he knows the patient. And patient had recent cardiac cath so unlikely to be any acute coronary syndrome but likely pain related to A. Fib. Start 1x loading dose of dig. Start Cardizem drip as tolerated. Repeat labs including ABG, Troponins. Already on Eliquis. Update 30 minutes post all intervention. Patient states she feels much better. Still waiting on labs.
[2018-12-14 21:35] LABS: Hematocrit 42 % (35-47); Mean Corpuscular HGB Conc 34 g/dL (31-36); Mean Corpuscular Hemoglobin 31 pg (27-31); Mean Corpuscular Volume 93 fL (80-97); Mean Platelet Volume 9.2 fL (7.4-10.4); Platelet Count 131 10^3/uL (150-450); Red Cell Distribution Width 15 % (10-15); White Blood Count 14.3 10^3/uL (3.5-10.8)
[2018-12-14 21:54] LABS: ABS Basophils 0.1 10^3/ul (0-0.2); ABS Lymphocytes 1.4 10^3/ul (1.0-4.8); ABS Monocytes 0.8 10^3/ul (0-0.8); Lymphocyte % 9.8 %; Nucleated Red Blood Cells % 0.1
[2018-12-14 21:57] LABS: Troponin I 0.01 ng/mL (<0.04)
[2018-12-14 22:02] LABS: BUN/Creatinine Ratio 60.8 (8-20); Calcium 9.5 mg/dL (8.6-10.3); EGFR African American 86.8 (>60); EGFR Non-African American 71.7 (>60)
[2018-12-14] MEDS: Cetirizine* 10 MG TAB PO SCH (22:35)
[2018-12-14] MEDS: Atorvastatin* 40 MG TAB PO SCH (22:35)
[2018-12-14] MEDS: NS 0.9% 1000 ML** 1,000 ML IV SCH (22:57)
[2018-12-15] MEDS ORDERED: Iodixanol* (CONTRAST) 320 MG/ML 100 ML SDV IV ONE (00:01)
[2018-12-15 00:02] LABS: INR 1.15 (0.82-1.09)
[2018-12-15] MEDS: Nitroglycerin TAB 0.4 MG* 0.4 MG TAB SL PRN (00:09)
[2018-12-15] MEDS: Acetaminophen TAB* 325 MG PO PRN ×3 (01:01→18:28)
[2018-12-15] MEDS ORDERED: Vancomycin per Pharmacy* NOTE FOLLOW UP SCH (02:00)
[2018-12-15] MEDS ORDERED: Vancomycin(*) 1,500 MG in NS 0.9% 250 ML* 250 ML IVPB ONE (02:00)
[2018-12-15 04:21] LABS: BUN/Creatinine Ratio 66.7 (8-20); Calcium 7.2 mg/dL (8.6-10.3); EGFR African American 143.8 (>60); EGFR Non-African American 118.9 (>60); Potassium 3.1 mmol/L (3.5-5.0)
[2018-12-15 04:24] LABS: Troponin I 0.02 ng/mL (<0.04)
[2018-12-15] MEDS ORDERED: Potassium Chlor TAB* 20 MEQ TAB.ER PO ONE ×2 (04:25→11:36)
[2018-12-15] MEDS: Aztreonam (*) 2 GM in NS 0.9% 50 ML* 50 ML IVPB SCH ×2 (04:29→12:01)
[2018-12-15] MEDS: NS 0.9% 1000 ML** 1,000 ML IV SCH ×2 (04:36→16:57)
[2018-12-15 04:55] LABS: ABS Basophils 0.1 10^3/ul (0-0.2); ABS Lymphocytes 1.5 10^3/ul (1.0-4.8); ABS Monocytes 0.8 10^3/ul (0-0.8); Eosinophil % 0.2 %; Hematocrit 33 % (35-47); Hemoglobin 11.1 g/dL (12.0-16.0); Mean Corpuscular HGB Conc 34 g/dL (31-36); Mean Corpuscular Hemoglobin 32 pg (27-31); Mean Corpuscular Volume 93 fL (80-97); Mean Platelet Volume 8.6 fL (7.4-10.4); Platelet Count 94 10^3/uL (150-450); Red Blood Count 3.54 10^6 /uL (3.70-4.87); Red Cell Distribution Width 15 % (10-15); White Blood Count 8.4 10^3/uL (3.5-10.8)
[2018-12-15] MEDS: fentaNYL Patch Check Q Shift 1 NOTE FOLLOW UP SCH ×4 (06:16→18:44)
[2018-12-15 07:19] LABS: Urine Appearance Cloudy; Urine Bilirubin Negative (Negative); Urine Blood Negative (Negative); Urine Color Yellow; Urine Glucose Negative (Negative); Urine Ketones Negative (Negative); Urine Nitrite Negative (Negative); Urine Protein Negative (Negative); Urine Specific Gravity 1.042 (1.010-1.030); Urine Urobilinogen Negative (Negative)
[2018-12-15] MEDS: Tiotropium CAP.INH* CAP.INH/18 MCG (USE ORDER SET !) INH SCH (07:53)
[2018-12-15] MEDS: Mometasone/Formoter 200/5 MDI INH SCH ×2 (07:54→19:49)
[2018-12-15] MEDS: Insulin LISPRO* 1 UNITS UNIT SUBCUT SCH ×4 (08:50→20:37)
[2018-12-15] MEDS: amLODIPine TAB* 5 MG PO SCH (09:18)
[2018-12-15] MEDS: Docusate CAP* 100 MG PO SCH (09:18)
[2018-12-15] MEDS: Fluticasone NASAL SPRAY 50MCG* 16 gm SPRAY BTL INTRANASAL SCH (09:19)
[2018-12-15] MEDS: Magnesium Oxide TAB* 400 MG PO SCH (09:19)
[2018-12-15] MEDS: Apixaban* 5 MG TAB PO SCH ×2 (09:19→20:37)
[2018-12-15] MEDS: metFORMIN* 500 MG TAB PO SCH ×2 (09:19→17:21)
[2018-12-15] MEDS: Metoprolol Succinate XL TAB* 25 MG PO SCH (09:19)
[2018-12-15] MEDS: Pregabalin CAP(*) 100 MG PO SCH ×3 (09:19→19:22)
[2018-12-15] MEDS: Insulin GLARGINE(*) 1 UNITS UNIT SUBCUT SCH (09:32)
[2018-12-15] MEDS: Hydrochlorothiazide TAB* 25 MG PO SCH (09:32)
[2018-12-15] MEDS: Pramipexole TAB* 0.5 MG PO SCH ×2 (10:29→20:37)
[2018-12-15] MEDS: predniSONE TAB* 50 MG PO SCH (10:29)
[2018-12-15] MEDS: Senna TAB PO SCH (10:29)
[2018-12-15] MEDS: Diazepam TAB(*) 5 MG PO PRN (10:49)
[2018-12-15] MEDS ORDERED: fentaNYL* 50 MCG/ML 2 ML VIAL (100 MCG VIAL) IV SLOW PU ONE (11:35)
[2018-12-15] MEDS ORDERED: Calcium Gluconate INJ* 1 GM in NS 0.9% 50 ML* 50 ML IVPB ONE (11:37)
[2018-12-15] MEDS ORDERED: Aztreonam (*) 2 GM in NS 0.9% 100 ML* 100 ML IVPB SCH ×2 (12:21→20:00)
[2018-12-15 12:55] LABS: BUN/Creatinine Ratio 46.7 (8-20); Calcium 8.8 mg/dL (8.6-10.3); EGFR African American 119.2 (>60); EGFR Non-African American 98.5 (>60); Potassium 4.1 mmol/L (3.5-5.0)
[2018-12-15] MEDS: Vancomycin(*) 1,000 MG in NS 0.9% 250 ML* 250 ML IVPB SCH (14:26)
--- NOTE | 2018-12-15 16:14 | PN ---
Subjective Date of Service: 12/15/18 Interval History: Overnight was transferred to ICU for A fib RVR. CTA neg for PE but showed pneumonia.Started on Aztreonam due to drug allergies and Vanco by overnight team to cover HCAP, given a fluid bolus and rate controlled with Diltiazem bolus and Dig.Rate controlled this am and slowly weaning Vapotherm Objective Active Medications: Acetaminophen (Tylenol Tab*) 650 mg PO Q6H PRN PRN Reason: PAIN - MILD Last Admin: 12/15/18 11:51 Dose: 650 mg Albuterol/Ipratropium (Duoneb (Albuterol 2.5 Mg/Ipratropium 0.5 Mg)) 1 neb INH RT.[id number] AWAKE PRN PRN Reason: SOB/WHEEZING Last Admin: 12/13/18 19:39 Dose: 1 neb Amlodipine Besylate (Norvasc Tab*) 10 mg PO DAILY [facility] Last Admin: 12/15/18 09:18 Dose: 10 mg Apixaban (Eliquis*) 5 mg PO BID [facility] Last Admin: 12/15/18 09:19 Dose: 5 mg Atorvastatin Calcium (Lipitor*) 40 mg PO 2100 [facility] Last Admin: 12/14/18 22:35 Dose: 40 mg Atropine Sulfate (Atropine 1mg/Ml Inj*) 0.5 mg IV PUSH .Q5MIN PRN PRN Reason: HR <40 Cetirizine HCl (Zyrtec*) 10 mg PO BEDTIME [facility] Last Admin: 12/14/18 22:35 Dose: 10 mg Dextrose (D50w Syringe 50 Ml*) 12.5 gm IV PUSH .FOR FS < 60 - SS PRN PRN Reason: FS < 60 Diazepam (Valium Tab(*)) 5 mg PO Q8H PRN PRN Reason: ANXIETY Last Admin: 12/15/18 10:49 Dose: 5 mg Diphenhydramine HCl (Benadryl Po*) 25 mg PO DAILY PRN PRN Reason: ITCHING Docusate Sodium (Colace Cap*) 200 mg PO DAILY [facility] Last Admin: 12/15/18 09:18 Dose: 200 mg Fluticasone Propionate (Flonase Nasal [place] 50mcg*) 1 spray INTRANASAL DAILY [facility] Last Admin: 12/15/18 09:19 Dose: Not Given Hydrochlorothiazide (Hydrodiuril Tab*) 25 mg PO DAILY [facility] Last Admin: 12/15/18 09:32 Dose: 25 mg Diltiazem HCl (Cardizem Iv Advan*) 100 mg in 100 mls @ 5 mls/hr IV Q20H [facility]; Protocol Last Admin: 12/14/18 21:05 Dose: 5 mls/hr Sodium Chloride (Ns 0.9% 1000 Ml) 1,000 mls @ 100 mls/hr IV PER RATE [facility] Last Admin: 12/15/18 04:36 Dose: 100 mls/hr Vancomycin HCl 1,000 mg/ (Sodium Chloride) 250 mls @ 166.667 mls/hr IVPB Q12H [facility] Last Admin: 12/15/18 14:26 Dose: 166.667 mls/hr Aztreonam 2 gm/ Sodium (Chloride) 100 mls @ 200 mls/hr IVPB Q8HR@0400,1200, 2000 [facility] Insulin Glargine (Lantus(*)) 10 units SUBCUT Q24H [facility] Last Admin: 12/15/18 09:32 Dose: 10 unit Insulin Human Lispro (Humalog*) 0 units SUBCUT ACHS [facility]; Protocol Last Admin: 12/15/18 12:40 Dose: 2 units Magnesium Oxide (Magox 400 Tab*) 400 mg PO DAILY [facility] Last Admin: 12/15/18 09:19 Dose: 400 mg Metformin HCl (Glucophage*) 500 mg PO 0800,1700 [facility] Last Admin: 12/15/18 09:19 Dose: 500 mg Metoprolol Succinate (Toprol Xl Tab*) 25 mg PO DAILY [facility] Last Admin: 12/15/18 09:19 Dose: 25 mg Mometasone Furoate/Formoterol Fumar (Dulera 200/5 Mdi*) 2 puff INH BID [facility] Last Admin: 12/15/18 07:54 Dose: 2 puff Nitroglycerin (Nitroglycerin Tab 0.4 Mg*) 0.4 mg SL Q5M PRN PRN Reason: chest pain Last Admin: 12/15/18 00:09 Dose: 0.4 mg Pto: Hydrocortisone Acetate [Vanicream Hc] 57 Gm 0 gm TOPICAL TID PRN PRN Reason: DRY SKIN Pharmacy Consult (Vancomycin Per Pharmacy*) 1 note FOLLOW UP .VANC PER PHARMACY [facility]; Protocol Pharmacy Profile Note (Fentanyl Patch Check Q Shift) 1 note FOLLOW UP 0700, 1900 [facility] Last Admin: 12/15/18 15:15 Dose: 1 note Pharmacy Profile Note (Vancomycin Trough Check) 1 note FOLLOW UP 1400 ONE Stop: 12/16/18 14:01 Polyethylene Glycol/Electrolytes (Miralax*) 17 gm PO DAILY PRN PRN Reason: CONSTIPATION Last Admin: 12/13/18 08:59 Dose: 17 gm Pramipexole Dihydrochloride (Mirapex Tab*) 1 mg PO BID [facility] Last Admin: 12/15/18 10:29 Dose: 1 mg Prednisone (Deltasone Tab*) 50 mg PO DAILY [facility] Last Admin: 12/15/18 10:29 Dose: 50 mg Pregabalin (Lyrica Cap(*)) 100 mg PO TID [facility] Last Admin: 12/15/18 15:00 Dose: Not Given Senna (Senokot Tab*) 2 tab PO DAILY [facility] Last Admin: 12/15/18 10:29 Dose: 2 tab Tiotropium [place] (Spiriva Cap.Inh*) 1 cap INH DAILY [facility] Last Admin: 12/15/18 07:53 Dose: 1 cap Vital Signs - 8 hr 12/15/18 12/15/18 12/15/18 08:15 08:30 08:45 Temperature Pulse Rate 77 80 79 Respiratory 18 22 24 Rate Blood Pressure (mmHg) O2 Sat by Pulse 93 91 93 Oximetry 12/15/18 12/15/18 12/15/18 09:00 09:01 09:15 Temperature Pulse Rate 80 80 96 Respiratory 25 23 19 Rate Blood Pressure 117/70 (mmHg) O2 Sat by Pulse 93 94 93 Oximetry 12/15/18 12/15/18 12/15/18 09:30 09:45 10:00 Temperature Pulse Rate 100 79 83 Respiratory 16 21 21 Rate Blood Pressure (mmHg) O2 Sat by Pulse 95 94 97 Oximetry 12/15/18 12/15/18 12/15/18 10:01 10:15 10:30 Temperature Pulse Rate 91 81 106 Respiratory 17 24 21 Rate Blood Pressure 114/73 (mmHg) O2 Sat by Pulse 96 97 94 Oximetry 12/15/18 12/15/18 12/15/18 10:45 10:49 11:00 Temperature Pulse Rate 95 64 Respiratory 26 30 26 Rate Blood Pressure 111/66 (mmHg) O2 Sat by Pulse 94 93 Oximetry 12/15/18 12/15/18 12/15/18 11:15 11:27 11:30 Temperature 97.9 F Pulse Rate 79 93 Respiratory 24 24 Rate Blood Pressure (mmHg) O2 Sat by Pulse 94 95 Oximetry 12/15/18 12/15/18 12/15/18 11:45 11:51 12:00 Temperature Pulse Rate Respiratory 12 20 20 Rate Blood Pressure 112/73 (mmHg) O2 Sat by Pulse Oximetry 12/15/18 12/15/18 12/15/18 12:15 12:30 12:45 Temperature Pulse Rate 84 89 90 Respiratory 25 19 14 Rate Blood Pressure (mmHg) O2 Sat by Pulse 92 92 94 Oximetry 12/15/18 12/15/18 12/15/18 13:00 13:07 13:15 Temperature Pulse Rate 99 94 92 Respiratory 24 26 21 Rate Blood Pressure 94/73 (mmHg) O2 Sat by Pulse 94 95 94 Oximetry 12/15/18 12/15/18 12/15/18 13:30 13:45 14:00 Temperature Pulse Rate 94 101 102 Respiratory 23 22 22 Rate Blood Pressure 102/60 (mmHg) O2 Sat by Pulse 95 93 92 Oximetry 12/15/18 12/15/18 12/15/18 14:15 14:30 14:45 Temperature Pulse Rate 89 92 102 Respiratory 21 10 21 Rate Blood Pressure (mmHg) O2 Sat by Pulse 94 93 96 Oximetry 12/15/18 12/15/18 12/15/18 15:00 15:15 15:30 Temperature 96.6 F Pulse Rate 87 101 Respiratory 20 16 17 Rate Blood Pressure 101/75 (mmHg) O2 Sat by Pulse 94 96 Oximetry 12/15/18 15:45 Temperature Pulse Rate 96 Respiratory 19 Rate Blood Pressure (mmHg) O2 Sat by Pulse 95 Oximetry Oxygen Devices in Use Now: High Flow Heated Nasal Cannula Eyes: No Scleral Icterus Neck: NL Appearance and Movements; NL JVP Respiratory: Symmetrical Chest Expansion and Respiratory Effort, Clear to Auscultation Cardiovascular: NL Sounds; No Murmurs; No JVD Abdominal: NL Sounds; No Tenderness; No Distention Extremities: No Edema Neurological: Alert and Oriented x 3 Result Diagrams: 12/15/18 03:50 12/15/18 12:27 Additional Lab and Data: Laboratory Results - last 24 hr 12/08/18 12/08/18 08:25 08:25 WBC 10.3 RBC 3.83 Hgb 12.1 Hct 36 MCV 93 MCH 32 H MCHC 34 RDW 15 Plt Count 110 L MPV 10.1 Neut % (Auto) 87.6 Lymph % (Auto) 7.9 [place] % (Auto) 4.4 Eos % (Auto) 0.0 Baso % (Auto) 0.1 Absolute Neuts (auto) 9.0 H Absolute Lymphs (auto) 0.8 L Absolute Monos (auto) 0.5 Absolute Eos (auto) 0.0 Absolute Basos (auto) 0.0 Absolute Nucleated RBC 0.0 Nucleated RBC % 0.0 Sodium 140 Potassium 3.9 Chloride 105 Carbon Dioxide 29 Anion Gap 6 BUN 32 H Creatinine 0.75 Est GFR ( Amer) 92.2 Est GFR (Non-Af Amer) 76.2 BUN/Creatinine Ratio 42.7 H Glucose 201 H Calcium 9.2 Troponin I 0.00 Microbiology and Other Data: Microbiology 12/07/18 00:14 Urine Streptococcus pneumoniae Ag Screen - Final Negative S. pneumo Antigen 12/07/18 08:59 Nasal Nasal Screen MRSA (PCR) - Final Mrsa Not Detected Assess/Plan/Problems-Billing Assessment: 73 year old female H chronic hypoxic respiratory failure, severe COPD, current smoker 1/2 ppd, [place], s/p TAVR, pAfib (on Eliquis, CVAs with left sided deficits, NIDDM p/w 2 months of progressive SOB and productive cough after verbal altercation between her and [facility] staff. COPD exacerbation. - Patient Problems (1) Acute and chronic respiratory failure with hypoxia Current Visit: Yes Status: Acute Code(s): J96.21 - ACUTE AND CHRONIC RESPIRATORY FAILURE WITH HYPOXIA SNOMED Code(s): 69583945 Comment: Baseline 3L, currently on vapotherm due to acute hypoxemic respiratory failure. Does not appear to be in CHF clinically. secondary to severe COPD in acute exacerbation and pneumonia (2) Pneumonia Current Visit: Yes Status: Acute Code(s): J18.9 - PNEUMONIA, UNSPECIFIED ORGANISM SNOMED Code(s): 618462331 Comment: Continue Aztreonam due to drug allergies and Vanco for now started by overnight team improving and now able to be weaned off vapotherm and on 4l and can transfer back to the floor (3) Atrial fibrillation with rapid ventricular response Current Visit: Yes Status: Acute Code(s): I48.91 - UNSPECIFIED ATRIAL FIBRILLATION SNOMED Code(s): 809213405884760 Comment: recd iv cardizem bolus and drip that was later stopped recd a dose of digoxin currently rate controlled with toprol xl can increase if needed (4) CHF (congestive heart failure) Current Visit: No Status: Chronic Priority: High Code(s): I50.9 - HEART FAILURE, UNSPECIFIED SNOMED Code(s): 53366316 Comment: not in acute exacerbation. diastolic dysfunction, ECHO Jan 2018 EF 55-60%, pt refused repeat Echo to be performed.Can reconsider if no improvement Continue B juanito Follow Daily Weights and Strict I/O. (5) COPD (chronic obstructive pulmonary disease) Current Visit: No Status: Chronic Priority: High Code(s): J44.9 - CHRONIC OBSTRUCTIVE PULMONARY DISEASE, UNSPECIFIED SNOMED Code(s): 21698173 Comment: Exacerbation with acute on chronic respiratory failure. Was on solumedrol and on prednisone po currently to be continued completed Azithro -last dose 12/12/18 Dulera(substitute for home Incruse Ellipta), duonebs, spiriva(for Anora Ellipta) on aztreonam and vanco per overnight team for hcap with improvement (6) Diabetes Current Visit: No Status: Chronic Priority: High Code(s): E11.9 - TYPE 2 DIABETES MELLITUS WITHOUT COMPLICATIONS SNOMED Code(s): 82736868 Comment: lispro SSI qac hs Home Metformin 500mg BID restarted today elevated given high dose steroids. Started Lantus 12/10/18 (7) HTN (hypertension) Current Visit: No Status: Chronic Priority: High Code(s): I10 - ESSENTIAL (PRIMARY) HYPERTENSION SNOMED Code(s): 93270805 Comment: Continue HCTZ 25. metoprolol succinate 25mg Added Norvasc 5 mg 12/10/18, increased to 10 mg 12/11/18 (8) History of CVA (cerebrovascular accident) Current Visit: No Status: Chronic Priority: High Code(s): Z86.73 - PRSNL HX OF TIA (TIA), AND CEREB INFRC W/O RESID DEFICITS SNOMED Code(s): 209134775 Comment: continue lipitor 40mg and Eliquis 5 mg BID. has aspirin allergy. pAfib Status and Disposition: was transferred to icu overnight and improving now and able to be weaned off vapotherm by 4 pm today.on 4l.ok to transfer back to floor
[2018-12-15] MEDS: Cetirizine* 10 MG TAB PO SCH (20:37)
[2018-12-15] MEDS: Atorvastatin* 40 MG TAB PO SCH (20:37)
[2018-12-15] MEDS: traMADol TAB* 50 MG PO PRN (21:34)
[2018-12-15] MEDS: Aztreonam (*) 2 GM in NS 0.9% 100 ML* 100 ML IVPB SCH (22:21)
[2018-12-16] MEDS: Acetaminophen TAB* 325 MG PO PRN (02:26)
[2018-12-16] MEDS: Vancomycin(*) 1,000 MG in NS 0.9% 250 ML* 250 ML IVPB SCH ×2 (02:33→14:03)
[2018-12-16] MEDS: traMADol TAB* 50 MG PO PRN ×3 (03:59→23:25)
[2018-12-16] MEDS: Aztreonam (*) 2 GM in NS 0.9% 100 ML* 100 ML IVPB SCH ×3 (05:52→22:26)
[2018-12-16] MEDS: fentaNYL Patch Check Q Shift 1 NOTE FOLLOW UP SCH ×2 (06:44→18:45)
[2018-12-16 06:52] LABS: ABS Lymphocytes 1.5 10^3/ul (1.0-4.8); ABS Monocytes 0.7 10^3/ul (0-0.8); ABS Neutrophils 6.5 10^3/ul (1.5-7.7); Hematocrit 35 % (35-47); Hemoglobin 12.2 g/dL (12.0-16.0); Mean Corpuscular HGB Conc 35 g/dL (31-36); Mean Corpuscular Hemoglobin 32 pg (27-31); Mean Corpuscular Volume 93 fL (80-97); Mean Platelet Volume 9.5 fL (7.4-10.4); Platelet Count 94 10^3/uL (150-450); Red Blood Count 3.79 10^6 /uL (3.70-4.87); Red Cell Distribution Width 15 % (10-15); White Blood Count 8.7 10^3/uL (3.5-10.8)
[2018-12-16 06:57] LABS: Potassium 4.6 mmol/L (3.5-5.0)
[2018-12-16 07:02] LABS: BUN/Creatinine Ratio 54.2 (8-20); EGFR Non-African American 100.5 (>60)
[2018-12-16 07:03] LABS: EGFR African American 121.6 (>60)
[2018-12-16 07:13] LABS: Eosinophil % 0.2 %; Lymphocyte % 17.6 %
[2018-12-16] MEDS: Mometasone/Formoter 200/5 MDI INH SCH ×2 (07:25→19:51)
[2018-12-16] MEDS: Tiotropium CAP.INH* CAP.INH/18 MCG (USE ORDER SET !) INH SCH (07:25)
[2018-12-16] MEDS: Senna TAB PO SCH (08:28)
[2018-12-16] MEDS: Pramipexole TAB* 0.5 MG PO SCH ×2 (08:28→22:17)
[2018-12-16] MEDS: Hydrochlorothiazide TAB* 25 MG PO SCH (08:29)
[2018-12-16] MEDS: amLODIPine TAB* 5 MG PO SCH (08:29)
[2018-12-16] MEDS: predniSONE TAB* 50 MG PO SCH (08:29)
[2018-12-16] MEDS: Magnesium Oxide TAB* 400 MG PO SCH (08:29)
[2018-12-16] MEDS: Metoprolol Succinate XL TAB* 25 MG PO SCH (08:29)
[2018-12-16] MEDS: Docusate CAP* 100 MG PO SCH (08:29)
[2018-12-16] MEDS: Pregabalin CAP(*) 100 MG PO SCH ×3 (08:29→22:17)
[2018-12-16] MEDS: Apixaban* 5 MG TAB PO SCH ×2 (08:29→22:16)
[2018-12-16] MEDS: metFORMIN* 500 MG TAB PO SCH ×2 (08:29→17:10)
[2018-12-16] MEDS: Insulin GLARGINE(*) 1 UNITS UNIT SUBCUT SCH (08:30)
[2018-12-16] MEDS: Insulin LISPRO* 1 UNITS UNIT SUBCUT SCH ×4 (08:30→22:16)
[2018-12-16] MEDS: Fluticasone NASAL SPRAY 50MCG* 16 gm SPRAY BTL INTRANASAL SCH (08:32)
--- NOTE | 2018-12-16 08:46 | PN ---
Subjective Date of Service: 12/16/18 Interval History: Reports feeling better, on 4 liters nasal canula, at baseline uses 3 liters. no SOB at rest, reports w/ activity does become dyspneic. no chest pain, cough with yellow sputum production Objective Active Medications: Acetaminophen (Tylenol Tab*) 650 mg PO Q6H PRN PRN Reason: PAIN - MILD Last Admin: 12/16/18 02:26 Dose: 650 mg Albuterol/Ipratropium (Duoneb (Albuterol 2.5 Mg/Ipratropium 0.5 Mg)) 1 neb INH [id number] AWAKE PRN PRN Reason: SOB/WHEEZING Last Admin: 12/13/18 19:39 Dose: 1 neb Amlodipine Besylate (Norvasc Tab*) 10 mg PO DAILY [facility] Last Admin: 12/16/18 08:29 Dose: 10 mg Apixaban (Eliquis*) 5 mg PO BID [facility] Last Admin: 12/16/18 08:29 Dose: 5 mg Atorvastatin Calcium (Lipitor*) 40 mg PO 2100 [facility] Last Admin: 12/15/18 20:37 Dose: 40 mg Atropine Sulfate (Atropine 1mg/Ml Inj*) 0.5 mg IV PUSH .Q5MIN PRN PRN Reason: HR <40 Cetirizine HCl (Zyrtec*) 10 mg PO BEDTIME [facility] Last Admin: 12/15/18 20:37 Dose: 10 mg Dextrose (D50w Syringe 50 Ml*) 12.5 gm IV PUSH .FOR FS < 60 - SS PRN PRN Reason: FS < 60 Diazepam (Valium Tab(*)) 5 mg PO Q8H PRN PRN Reason: ANXIETY Last Admin: 12/15/18 10:49 Dose: 5 mg Diphenhydramine HCl (Benadryl Po*) 25 mg PO DAILY PRN PRN Reason: ITCHING Docusate Sodium (Colace Cap*) 200 mg PO DAILY [facility] Last Admin: 12/16/18 08:29 Dose: 200 mg Fluticasone Propionate (Flonase Nasal [place] 50mcg*) 1 spray INTRANASAL DAILY [facility] Last Admin: 12/16/18 08:32 Dose: Not Given Hydrochlorothiazide (Hydrodiuril Tab*) 25 mg PO DAILY [facility] Last Admin: 12/16/18 08:29 Dose: 25 mg Sodium Chloride (Ns 0.9% 1000 Ml) 1,000 mls @ 100 mls/hr IV PER RATE [facility] Last Admin: 12/15/18 16:57 Dose: 100 mls/hr Vancomycin HCl 1,000 mg/ (Sodium Chloride) 250 mls @ 166.667 mls/hr IVPB Q12H [facility] Last Admin: 12/16/18 02:33 Dose: 166.667 mls/hr Aztreonam 2 gm/ Sodium (Chloride) 100 mls @ 200 mls/hr IVPB Q8H [facility] Last Admin: 12/16/18 05:52 Dose: 200 mls/hr Insulin Glargine (Lantus(*)) 10 units SUBCUT Q24H [facility] Last Admin: 12/16/18 08:30 Dose: 10 unit Insulin Human Lispro (Humalog*) 0 units SUBCUT ACHS [facility]; Protocol Last Admin: 12/16/18 08:30 Dose: 1 units Magnesium Oxide (Magox 400 Tab*) 400 mg PO DAILY [facility] Last Admin: 12/16/18 08:29 Dose: 400 mg Metformin HCl (Glucophage*) 500 mg PO 0800,1700 [facility] Last Admin: 12/16/18 08:29 Dose: 500 mg Metoprolol Succinate (Toprol Xl Tab*) 25 mg PO DAILY [facility] Last Admin: 12/16/18 08:29 Dose: 25 mg Mometasone Furoate/Formoterol Fumar (Dulera 200/5 Mdi*) 2 puff INH BID [facility] Last Admin: 12/16/18 07:25 Dose: 2 puff Nitroglycerin (Nitroglycerin Tab 0.4 Mg*) 0.4 mg SL Q5M PRN PRN Reason: chest pain Last Admin: 12/15/18 00:09 Dose: 0.4 mg Pto: Hydrocortisone Acetate [Vanicream Hc] 57 Gm 0 gm TOPICAL TID PRN PRN Reason: DRY SKIN Pharmacy Consult (Vancomycin Per Pharmacy*) 1 note FOLLOW UP .VANC PER PHARMACY [facility]; Protocol Pharmacy Profile Note (Fentanyl Patch Check Q Shift) 1 note FOLLOW UP 0700, 1900 [facility] Last Admin: 12/16/18 06:44 Dose: 1 note Pharmacy Profile Note (Vancomycin Trough Check) 1 note FOLLOW UP 1400 ONE Stop: 12/16/18 14:01 Polyethylene Glycol/Electrolytes (Miralax*) 17 gm PO DAILY PRN PRN Reason: CONSTIPATION Last Admin: 12/13/18 08:59 Dose: 17 gm Pramipexole Dihydrochloride (Mirapex Tab*) 1 mg PO BID [facility] Last Admin: 12/16/18 08:28 Dose: 1 mg Prednisone (Deltasone Tab*) 50 mg PO DAILY [facility] Last Admin: 12/16/18 08:29 Dose: 50 mg Pregabalin (Lyrica Cap(*)) 100 mg PO TID [facility] Last Admin: 12/16/18 08:29 Dose: 100 mg Senna (Senokot Tab*) 2 tab PO DAILY [facility] Last Admin: 12/16/18 08:28 Dose: 2 tab Tiotropium [place] (Spiriva Cap.Inh*) 1 cap INH DAILY [facility] Last Admin: 12/16/18 07:25 Dose: 1 cap Tramadol HCl (Ultram*) 50 mg PO Q6H PRN PRN Reason: PAIN - MODERATE TO SEVERE Last Admin: 12/16/18 03:59 Dose: 50 mg Vital Signs - 8 hr 12/16/18 12/16/18 12/16/18 03:39 03:59 06:35 Temperature 98.3 F Pulse Rate 57 Respiratory 18 18 16 Rate Blood Pressure 134/60 (mmHg) O2 Sat by Pulse 98 Oximetry 12/16/18 12/16/18 07:28 08:29 Temperature Pulse Rate 69 Respiratory 18 18 Rate Blood Pressure (mmHg) O2 Sat by Pulse 99 Oximetry Oxygen Devices in Use Now: Nasal Cannula Appearance: Elderly female in bed, in no distress Eyes: PERRLA Respiratory: - - moderate expiratory wheezing. Cardiovascular: RRR, - - trace lower extremity edema Abdominal: NL Sounds; No Tenderness; No Distention, No Hepatosplenomegaly Extremities: No Clubbing, Cyanosis Skin: No Rash or Ulcers Neurological: Alert and Oriented x 3 Result Diagrams: 12/16/18 05:12 12/16/18 05:12 Additional Lab and Data: Laboratory Results - last 24 hr 12/08/18 12/08/18 08:25 08:25 WBC 10.3 RBC 3.83 Hgb 12.1 Hct 36 MCV 93 MCH 32 H MCHC 34 RDW 15 Plt Count 110 L MPV 10.1 Neut % (Auto) 87.6 Lymph % (Auto) 7.9 Cocke % (Auto) 4.4 Eos % (Auto) 0.0 Baso % (Auto) 0.1 Absolute Neuts (auto) 9.0 H Absolute Lymphs (auto) 0.8 L Absolute Monos (auto) 0.5 Absolute Eos (auto) 0.0 Absolute Basos (auto) 0.0 Absolute Nucleated RBC 0.0 Nucleated RBC % 0.0 Sodium 140 Potassium 3.9 Chloride 105 Carbon Dioxide 29 Anion Gap 6 BUN 32 H Creatinine 0.75 Est GFR ( Amer) 92.2 Est GFR (Non-Af Amer) 76.2 BUN/Creatinine Ratio 42.7 H Glucose 201 H Calcium 9.2 Troponin I 0.00 Microbiology and Other Data: Microbiology 12/07/18 00:14 Urine Streptococcus pneumoniae Ag Screen - Final Negative S. pneumo Antigen 12/07/18 08:59 Nasal Nasal Screen MRSA (PCR) - Final Mrsa Not Detected Assess/Plan/Problems-Billing Assessment: 73 year old female [facility] chronic hypoxic respiratory failure, severe COPD, current smoker 1/2 ppd, [place], s/p TAVR, pAfib (on Eliquis, CVAs with left sided deficits, Diabetes, p/w 2 months of progressive SOB and productive cough admitted with COPD exacerbation. - Patient Problems (1) Acute and chronic respiratory failure with hypoxia Current Visit: Yes Status: Acute Code(s): J96.21 - ACUTE AND CHRONIC RESPIRATORY FAILURE WITH HYPOXIA SNOMED Code(s): 58618011 Comment: Due to COPD exacerbation, at baseline 3 liters Nasal canula, currenty 4 liters. continue prednisone, breathing treatments. (2) Atrial fibrillation with rapid ventricular response Current Visit: Yes Status: Acute Code(s): I48.91 - UNSPECIFIED ATRIAL FIBRILLATION SNOMED Code(s): 247009204201990 Comment: Currently rate controlled, did receive a dose of digoxin this admission to control HR. on chornic anticoagulation w/ eliquis (3) Pneumonia Current Visit: Yes Status: Acute Code(s): J18.9 - PNEUMONIA, UNSPECIFIED ORGANISM SNOMED Code(s): 220955497 Comment: Continue Aztreonam and vancomycin (4) DVT prophylaxis Current Visit: No Status: Acute Priority: High Code(s): IHV3991 - SNOMED Code(s): 721419420 Comment: Eliquis (5) CHF (congestive heart failure) Current Visit: No Status: Chronic Priority: High Code(s): I50.9 - HEART FAILURE, UNSPECIFIED SNOMED Code(s): 31232764 Comment: not in acute exacerbation. diastolic dysfunction, ECHO Jan 2018 EF 55-60%, monitor. (6) Diabetes Current Visit: No Status: Chronic Priority: High Code(s): E11.9 - TYPE 2 DIABETES MELLITUS WITHOUT COMPLICATIONS SNOMED Code(s): 48978741 Comment: home dose metformin, and insulin Status and Disposition: Discontinue En[facility] PT From assisted living.
--- NOTE | 2018-12-16 09:59 | PN ---
Hospitalist Progress Note Date of Service: 12/16/18 Patient wants to leave, discussed in detail she needs her COPD optimized better , control her breathing. Discussed with CM.- Angel Jenkins- won't take her back as her status is not stable right now. She states she will go and live on the street, she is AA/O X 3, I did expalin to her the risk of leaving- worsening of her breathing, respiratory arrest. She states she will go on the street and take care of herself. Case discussed with psychiatry to eval for capacity
--- NOTE | 2018-12-16 12:41 | CONSULT ---
Consult Consult: Consult for Medical Decision Making Capacity S: Psychiatry is asked to evaluate capacity in this 73 y.o. single, white female admitted to Medicine on December 07 due to dyspnea and COPD exacerbation. She has been requiring 4L of supplemental nasal oxygen and is undergoing a course of IV antibiotics for presumptive pneumonia. Despite the seriousness of her presentation, the patient pulled her oxygen tube and her hi catheter out this morning, insisting on leaving AMA. The hospital notified her residence, the [facility] in [place], [place], who refused to accept the patient back as she had not completed her course of care. When notified of this, the patient insisted on discharge anyway, saying that she would accept living on the street. I spoke with Hospitalist attending, Dr. Geovany Magallanes, who reports that she explained the risks of leaving to [facility] this morning, including hypoxia and . On exam the patient is awake and fully oriented but irritable and clearly short of breath. She reports that she's lived at the [facility] for the past year and a half and that she is treated "horribly there." She identifies her current diagnosis as "Double Pneumonia" but cannot articulate what treatment is necessary for that, either oxygen or antibiotic therapy. Furthermore, when asked about the risks of leaving the hospital without completing her care she responds "I'll be fine. I'll get to walk around and have a cigarette...this place is like a group home." O: aging, obese white female in pink sweat clothes; fair grooming, cooperative but slightly argumentative; irritable mood with a mildly labile affect; denies SI or HI; insight and judgment poor given insistence on leaving; awake and alert; oriented to place time and situation A/P: Capacity: During our interaction, Ms. Regalado demonstrated a reasonable understanding of her illness, however, she could not state the recommended treatment or the associated risks of refusing said treatment. In my judgment, she lacks the capacity to make an informed decision about staying in the hospital for continued pulmonary workup and care. Capacity is subject to change in these situations and psychiatry can be re-consulted in the event of any significant changes in her presentation/situation. I have discussed my opinion with the patient, unit staff and attending hospitalist, Dr. Magallanes. Thank you for the consult.
[2018-12-16] MEDS ORDERED: Vancomycin Trough Check NOTE FOLLOW UP ONE (14:00)
[2018-12-16] MEDS: Atorvastatin* 40 MG TAB PO SCH (22:16)
[2018-12-16] MEDS: Cetirizine* 10 MG TAB PO SCH (22:16)
[2018-12-17] MEDS: Vancomycin(*) 1,000 MG in NS 0.9% 250 ML* 250 ML IVPB SCH ×2 (03:09→16:35)
[2018-12-17] MEDS: traMADol TAB* 50 MG PO PRN (05:04)
[2018-12-17] MEDS: Aztreonam (*) 2 GM in NS 0.9% 100 ML* 100 ML IVPB SCH ×2 (05:55→13:55)
[2018-12-17] MEDS: fentaNYL Patch Check Q Shift 1 NOTE FOLLOW UP SCH (07:29)
[2018-12-17] MEDS: Tiotropium CAP.INH* CAP.INH/18 MCG (USE ORDER SET !) INH SCH (07:29)
[2018-12-17] MEDS: Mometasone/Formoter 200/5 MDI INH SCH ×2 (07:33→19:22)
[2018-12-17] MEDS: Insulin LISPRO* 1 UNITS UNIT SUBCUT SCH ×4 (08:34→21:56)
[2018-12-17] MEDS: Docusate CAP* 100 MG PO SCH (09:31)
[2018-12-17] MEDS: metFORMIN* 500 MG TAB PO SCH ×2 (09:31→17:45)
[2018-12-17] MEDS: Senna TAB PO SCH (09:32)
[2018-12-17] MEDS: Hydrochlorothiazide TAB* 25 MG PO SCH (09:32)
[2018-12-17] MEDS: Apixaban* 5 MG TAB PO SCH ×2 (09:33→21:52)
[2018-12-17] MEDS: Pregabalin CAP(*) 100 MG PO SCH ×3 (09:34→21:53)
[2018-12-17] MEDS: Magnesium Oxide TAB* 400 MG PO SCH (09:34)
[2018-12-17] MEDS: Pramipexole TAB* 0.5 MG PO SCH ×2 (09:35→21:53)
[2018-12-17] MEDS: predniSONE TAB* 50 MG PO SCH (09:35)
[2018-12-17] MEDS: Insulin GLARGINE(*) 1 UNITS UNIT SUBCUT SCH (09:36)
[2018-12-17] MEDS: Metoprolol Succinate XL TAB* 25 MG PO SCH (09:40)
[2018-12-17] MEDS: amLODIPine TAB* 5 MG PO SCH (09:40)
[2018-12-17] MEDS: Fluticasone NASAL SPRAY 50MCG* 16 gm SPRAY BTL INTRANASAL SCH (09:41)
--- NOTE | 2018-12-17 12:56 | PN ---
Subjective Date of Service: 12/17/18 Interval History: [facility], no capacity to leave against medical advice. Today morning, patient upset/angry, had to call security. Reports no trouble breathing, no chest pain, occasional cough. Objective Active Medications: Acetaminophen (Tylenol Tab*) 650 mg PO Q6H PRN PRN Reason: PAIN - MILD Last Admin: 12/16/18 02:26 Dose: 650 mg Albuterol/Ipratropium (Duoneb (Albuterol 2.5 Mg/Ipratropium 0.5 Mg)) 1 neb INH [id number] AWAKE PRN PRN Reason: SOB/WHEEZING Last Admin: 12/13/18 19:39 Dose: 1 neb Amlodipine Besylate (Norvasc Tab*) 10 mg PO DAILY [facility] Last Admin: 12/17/18 09:40 Dose: 10 mg Apixaban (Eliquis*) 5 mg PO BID [facility] Last Admin: 12/17/18 09:33 Dose: 5 mg Atorvastatin Calcium (Lipitor*) 40 mg PO 2100 [facility] Last Admin: 12/16/18 22:16 Dose: 40 mg Atropine Sulfate (Atropine 1mg/Ml Inj*) 0.5 mg IV PUSH .Q5MIN PRN PRN Reason: HR <40 Cetirizine HCl (Zyrtec*) 10 mg PO BEDTIME [facility] Last Admin: 12/16/18 22:16 Dose: 10 mg Dextrose (D50w Syringe 50 Ml*) 12.5 gm IV PUSH .FOR FS < 60 - SS PRN PRN Reason: FS < 60 Diazepam (Valium Tab(*)) 5 mg PO Q8H PRN PRN Reason: ANXIETY Last Admin: 12/15/18 10:49 Dose: 5 mg Diphenhydramine HCl (Benadryl Po*) 25 mg PO DAILY PRN PRN Reason: ITCHING Docusate Sodium (Colace Cap*) 200 mg PO DAILY [facility] Last Admin: 12/17/18 09:31 Dose: 200 mg Fluticasone Propionate (Flonase Nasal [place] 50mcg*) 1 spray INTRANASAL DAILY [facility] Last Admin: 12/17/18 09:41 Dose: Not Given Hydrochlorothiazide (Hydrodiuril Tab*) 25 mg PO DAILY [facility] Last Admin: 12/17/18 09:32 Dose: 25 mg Sodium Chloride (Ns 0.9% 1000 Ml) 1,000 mls @ 100 mls/hr IV PER RATE [facility] Last Admin: 12/15/18 16:57 Dose: 100 mls/hr Vancomycin HCl 1,000 mg/ (Sodium Chloride) 250 mls @ 166.667 mls/hr IVPB Q12H [facility] Last Admin: 12/17/18 03:09 Dose: Not Given Aztreonam 2 gm/ Sodium (Chloride) 100 mls @ 200 mls/hr IVPB Q8H [facility] Last Admin: 12/17/18 05:55 Dose: 200 mls/hr Insulin Glargine (Lantus(*)) 10 units SUBCUT Q24H [facility] Last Admin: 12/17/18 09:36 Dose: 10 unit Insulin Human Lispro (Humalog*) 0 units SUBCUT ACHS [facility]; Protocol Last Admin: 12/17/18 08:34 Dose: Not Given Magnesium Oxide (Magox 400 Tab*) 400 mg PO DAILY [facility] Last Admin: 12/17/18 09:34 Dose: 400 mg Metformin HCl (Glucophage*) 500 mg PO 0800,1700 [facility] Last Admin: 12/17/18 09:31 Dose: 500 mg Metoprolol Succinate (Toprol Xl Tab*) 25 mg PO DAILY [facility] Last Admin: 12/17/18 09:40 Dose: 25 mg Mometasone Furoate/Formoterol Fumar (Dulera 200/5 Mdi*) 2 puff INH BID [facility] Last Admin: 12/17/18 07:33 Dose: 2 puff Nitroglycerin (Nitroglycerin Tab 0.4 Mg*) 0.4 mg SL Q5M PRN PRN Reason: chest pain Last Admin: 12/15/18 00:09 Dose: 0.4 mg Pto: Hydrocortisone Acetate [Vanicream Hc] 57 Gm 0 gm TOPICAL TID PRN PRN Reason: DRY SKIN Pharmacy Consult (Vancomycin Per Pharmacy*) 1 note FOLLOW UP .VANC PER PHARMACY [facility]; Protocol Pharmacy Profile Note (Fentanyl Patch Check Q Shift) 1 note FOLLOW UP 0700, 1900 [facility] Last Admin: 12/17/18 07:29 Dose: 1 note Polyethylene Glycol/Electrolytes (Miralax*) 17 gm PO DAILY PRN PRN Reason: CONSTIPATION Last Admin: 12/13/18 08:59 Dose: 17 gm Pramipexole Dihydrochloride (Mirapex Tab*) 1 mg PO BID [facility] Last Admin: 12/17/18 09:35 Dose: 1 mg Prednisone (Deltasone Tab*) 50 mg PO DAILY [facility] Last Admin: 12/17/18 09:35 Dose: 50 mg Pregabalin (Lyrica Cap(*)) 100 mg PO TID [facility] Last Admin: 12/17/18 09:34 Dose: 100 mg Senna (Senokot Tab*) 2 tab PO DAILY [facility] Last Admin: 12/17/18 09:32 Dose: 2 tab Tiotropium [place] (Spiriva Cap.Inh*) 1 cap INH DAILY [facility] Last Admin: 12/17/18 07:29 Dose: 1 cap Vital Signs - 8 hr 12/17/18 12/17/18 12/17/18 05:04 09:01 09:34 Pulse Rate 80 Respiratory 16 18 18 Rate Blood Pressure (mmHg) O2 Sat by Pulse 97 Oximetry 12/17/18 12/17/18 09:41 09:43 Pulse Rate Respiratory 18 18 Rate Blood Pressure 133/60 (mmHg) O2 Sat by Pulse 89 Oximetry Appearance: Sitting on bed, angry, speaking in full sentences without requiring oxygen or stopping to breath. Respiratory: - - No use of accessory muscles, no tachypnea, mild scattered wheezing. Cardiovascular: RRR, No Edema Abdominal: NL Sounds; No Tenderness; No Distention, No Hepatosplenomegaly Neurological: Alert and Oriented x 3 Result Diagrams: 12/16/18 05:12 12/16/18 05:12 Additional Lab and Data: Abnormal Lab Results 12/16/18 12/17/18 20:49 07:36 POC Glucose (mg/dL) 287 H 104 H Microbiology and Other Data: Microbiology Microbiology 12/15/18 03:50 Aerobic Blood Culture - Preliminary Blood Venous No Growth Day 2 Anaerobic Blood Culture - Preliminary No Growth Day 2 12/15/18 03:50 Aerobic Blood Culture - Preliminary Blood Venous No Growth Day 2 Anaerobic Blood Culture - Preliminary No Growth Day 2 12/14/18 22:45 Nasal Screen MRSA (PCR) - Final Nasal Mrsa Not Detected 12/09/18 13:55 Nasal Screen MRSA (PCR) - Final Nasal Mrsa Not Detected 12/07/18 00:14 Streptococcus pneumoniae Ag Screen - Final Urine Negative S. pneumo Antigen 12/07/18 08:59 Nasal Screen MRSA (PCR) - Final Nasal Mrsa Not Detected Assess/Plan/Problems-Billing Assessment: 73 year old female [facility] chronic hypoxic respiratory failure, severe COPD, current smoker 1/2 ppd, [place], s/p TAVR, pAfib (on Eliquis, CVAs with left sided deficits, Diabetes, p/w 2 months of progressive SOB and productive cough admitted with COPD exacerbation. - Patient Problems (1) Acute and chronic respiratory failure with hypoxia Current Visit: Yes Status: Acute Code(s): J96.21 - ACUTE AND CHRONIC RESPIRATORY FAILURE WITH HYPOXIA SNOMED Code(s): 90164714 Comment: Improved. Due to COPD exacerbation, at baseline 3 liters Nasal canula, She took her oxygen off as she is upset. She is not having any respiratory distress (2) Atrial fibrillation with rapid ventricular response Current Visit: Yes Status: Acute Code(s): I48.91 - UNSPECIFIED ATRIAL FIBRILLATION SNOMED Code(s): 051750633672412 Comment: Currently rate controlled, did receive a dose of digoxin this admission to control HR. on chronic anticoagulation w/ eliquis (3) Pneumonia Current Visit: Yes Status: Acute Code(s): J18.9 - PNEUMONIA, UNSPECIFIED ORGANISM SNOMED Code(s): 916098216 Comment: Continue Aztreonam and vancomycin- discharge plan oral doxycycline (4) DVT prophylaxis Current Visit: No Status: Acute Priority: High Code(s): AQG2253 - SNOMED Code(s): 005854143 Comment: Eliquis (5) CHF (congestive heart failure) Current Visit: No Status: Chronic Priority: High Code(s): I50.9 - HEART FAILURE, UNSPECIFIED SNOMED Code(s): 40463120 Comment: not in acute exacerbation. diastolic dysfunction, ECHO Jan 2018 EF 55-60%, monitor. (6) Diabetes Current Visit: No Status: Chronic Priority: High Code(s): E11.9 - TYPE 2 DIABETES MELLITUS WITHOUT COMPLICATIONS SNOMED Code(s): 33710342 Comment: home dose metformin, and insulin Status and Disposition: Discontinue [facility] PT From assisted living. Planning for discharge, will need outpatient oral antibiotics, and prednisone. At this point discussed with CM- staff from her [facility] will be coming to evaluate, and decide if she would be accepted to the facility. Will work with CM regarding discharge planning.
[2018-12-17] MEDS ORDERED: fentaNYL PATCH 25 MCG/HR TRANSDERM SCH (13:00)
[2018-12-17] MEDS: fentaNYL Patch Check Q Shift 1 NOTE SCH (19:22)
[2018-12-17] MEDS: Cetirizine* 10 MG TAB PO SCH (21:52)
[2018-12-17] MEDS: Atorvastatin* 40 MG TAB PO SCH (21:52)
[2018-12-17] MEDS: DOXYcycline CAP(*) 100 MG PO SCH (21:52)
[2018-12-17] MEDS: oxyCODONE TAB* 5 MG TAB PO PRN (21:55)
[2018-12-18] MEDS: NS 0.9% IVPB SCH ×3 (01:47→17:37)
[2018-12-18] MEDS: ACYCLOVIR IVPB SCH ×3 (01:47→17:37)
--- NOTE | 2018-12-18 03:26 | PN ---
Hospitalist Progress Note Date of Service: 12/18/18 Called by MAYANK Salgado who noted blister-like rash to lower back. No reports of this in provider documentation throughout her hospital stay. Nursing notes indicate on 12/15/18 the rash was noted, but it doesn't reflect provider being notified. Patient has been on contact precautions due to past history of MRSA within 12 mos. Upon evaluation, patient reports low back pain however she has chronic back pain. She denies fever/chills. She is unsure of history of shingles. She denies hx of chicken pox in the past but notes her brother had it in childhood. 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 -I will perform viral culture. -continue contact precautions
[2018-12-18] MEDS: oxyCODONE TAB* 5 MG TAB PO PRN ×3 (05:54→23:29)
[2018-12-18] MEDS: fentaNYL Patch Check Q Shift 1 NOTE SCH ×2 (06:43→18:51)
[2018-12-18] MEDS: Mometasone/Formoter 200/5 MDI INH SCH ×2 (07:29→21:11)
[2018-12-18] MEDS: Tiotropium CAP.INH* CAP.INH/18 MCG (USE ORDER SET !) INH SCH (07:31)
[2018-12-18] MEDS: Insulin LISPRO* 1 UNITS UNIT SUBCUT SCH ×4 (08:25→23:28)
[2018-12-18] MEDS: Docusate CAP* 100 MG PO SCH (08:26)
[2018-12-18] MEDS: Insulin GLARGINE(*) 1 UNITS UNIT SUBCUT SCH (08:26)
[2018-12-18] MEDS: metFORMIN* 500 MG TAB PO SCH ×2 (08:27→17:37)
[2018-12-18] MEDS: Hydrochlorothiazide TAB* 25 MG PO SCH (08:28)
[2018-12-18] MEDS: amLODIPine TAB* 5 MG PO SCH (08:28)
[2018-12-18] MEDS: DOXYcycline CAP(*) 100 MG PO SCH ×2 (08:28→23:28)
[2018-12-18] MEDS: Apixaban* 5 MG TAB PO SCH ×2 (08:29→23:27)
[2018-12-18] MEDS: Pregabalin CAP(*) 100 MG PO SCH ×3 (08:29→23:29)
[2018-12-18] MEDS: Pramipexole TAB* 0.5 MG PO SCH ×2 (08:29→23:29)
[2018-12-18] MEDS: Senna TAB PO SCH (08:30)
[2018-12-18] MEDS ORDERED: predniSONE TAB* 20 MG PO SCH (09:00)
--- NOTE | 2018-12-18 10:14 | PN ---
Subjective Date of Service: 12/18/18 Interval History: This morning patient is more cooperative, is not angry. Her concern with going back to [place] is that it costs a lot. She states that she takes her medications and will take her medication as we instruct her to. She verbalized that "I always take my medications" "High blood sugar is not good, I could if it goes so high, loose my leg or heart my " Overnight was having pain the gluteal region, found to have herpes zoster- started on acyclovir overnight. Objective Active Medications: Acetaminophen (Tylenol Tab*) 650 mg PO Q6H PRN PRN Reason: PAIN SCALE 1-5 Albuterol/Ipratropium (Duoneb (Albuterol 2.5 Mg/Ipratropium 0.5 Mg)) 1 neb INH [id number] AWAKE PRN PRN Reason: SOB/WHEEZING Last Admin: 12/13/18 19:39 Dose: 1 neb Amlodipine Besylate (Norvasc Tab*) 10 mg PO DAILY [facility] Last Admin: 12/18/18 08:28 Dose: 10 mg Apixaban (Eliquis*) 5 mg PO BID [facility] Last Admin: 12/18/18 08:29 Dose: 5 mg Atorvastatin Calcium (Lipitor*) 40 mg PO 2100 [facility] Last Admin: 12/17/18 21:52 Dose: 40 mg Atropine Sulfate (Atropine 1mg/Ml Inj*) 0.5 mg IV PUSH .Q5MIN PRN PRN Reason: HR <40 Cetirizine HCl (Zyrtec*) 10 mg PO BEDTIME [facility] Last Admin: 12/17/18 21:52 Dose: 10 mg Dextrose (D50w Syringe 50 Ml*) 12.5 gm IV PUSH .FOR FS < 60 - SS PRN PRN Reason: FS < 60 Diphenhydramine HCl (Benadryl Po*) 25 mg PO DAILY PRN PRN Reason: ITCHING Docusate Sodium (Colace Cap*) 200 mg PO DAILY [facility] Last Admin: 12/18/18 08:26 Dose: 200 mg Doxycycline Hyclate (Vibramycin Cap(*)) 100 mg PO BID [facility] Last Admin: 12/18/18 08:28 Dose: 100 mg Fentanyl (Duragesic Patch 25 Mcg/Hr*) 25 mcg TRANSDERM Q72H [facility] Last Admin: 12/17/18 13:41 Dose: 25 mcg Fluticasone Propionate (Flonase Nasal [place] 50mcg*) 1 spray INTRANASAL DAILY [facility] Last Admin: 12/17/18 09:41 Dose: Not Given Hydrochlorothiazide (Hydrodiuril Tab*) 25 mg PO DAILY [facility] Last Admin: 12/18/18 08:28 Dose: 25 mg Acyclovir Sodium 550 mg/ (Sodium Chloride) 261 mls @ 261 mls/hr IVPB Q8H [facility] Last Admin: 12/18/18 01:47 Dose: 261 mls/hr Insulin Glargine (Lantus(*)) 10 units SUBCUT Q24H [facility] Last Admin: 12/18/18 08:26 Dose: 10 unit Insulin Human Lispro (Humalog*) 0 units SUBCUT ACHS [facility]; Protocol Last Admin: 12/18/18 08:25 Dose: 2 units Magnesium Oxide (Magox 400 Tab*) 400 mg PO DAILY@1130 [place] Metformin HCl (Glucophage*) 500 mg PO 0800,1700 [facility] Last Admin: 12/18/18 08:27 Dose: 500 mg Metoprolol Succinate (Toprol Xl Tab*) 25 mg PO DAILY [facility] Last Admin: 12/17/18 09:40 Dose: 25 mg Mometasone Furoate/Formoterol Fumar (Dulera 200/5 Mdi*) 2 puff INH BID [facility] Last Admin: 12/18/18 07:29 Dose: 2 puff Nitroglycerin (Nitroglycerin Tab 0.4 Mg*) 0.4 mg SL Q5M PRN PRN Reason: chest pain Last Admin: 12/15/18 00:09 Dose: 0.4 mg Pto: Hydrocortisone Acetate [Vanicream Hc] 57 Gm 0 gm TOPICAL TID PRN PRN Reason: DRY SKIN Oxycodone HCl (Roxycodone Tab*) 5 mg PO Q8H PRN PRN Reason: PAIN - BREAKTHROUGH Last Admin: 12/18/18 05:54 Dose: 5 mg Pharmacy Profile Note (Fentanyl Patch Check Q Shift) 1 note N/A 0700,1900 [facility] Last Admin: 12/18/18 06:43 Dose: 1 note Polyethylene Glycol/Electrolytes (Miralax*) 17 gm PO DAILY PRN PRN Reason: CONSTIPATION Last Admin: 12/13/18 08:59 Dose: 17 gm Pramipexole Dihydrochloride (Mirapex Tab*) 1 mg PO BID [facility] Last Admin: 12/18/18 08:29 Dose: 1 mg Pregabalin (Lyrica Cap(*)) 100 mg PO TID [facility] Last Admin: 12/18/18 08:29 Dose: 100 mg Senna (Senokot Tab*) 2 tab PO DAILY [facility] Last Admin: 12/18/18 08:30 Dose: 2 tab Tiotropium [place] (Spiriva Cap.Inh*) 1 cap INH DAILY [facility] Last Admin: 12/18/18 07:31 Dose: 1 cap Vital Signs - 8 hr 12/18/18 12/18/18 12/18/18 04:48 04:52 05:54 Temperature 98.0 F Pulse Rate 30 52 Respiratory 18 16 Rate Blood Pressure 97/53 106/52 (mmHg) O2 Sat by Pulse 99 Oximetry 12/18/18 12/18/18 12/18/18 07:21 07:24 07:34 Temperature 97.5 F Pulse Rate 55 64 Respiratory 16 16 16 Rate Blood Pressure 120/71 (mmHg) O2 Sat by Pulse 98 97 Oximetry 12/18/18 12/18/18 08:29 08:31 Temperature Pulse Rate Respiratory 18 18 Rate Blood Pressure (mmHg) O2 Sat by Pulse Oximetry Oxygen Devices in Use Now: Nasal Cannula Appearance: Lying in bed, with supplemental oxygen Respiratory: - - No tachypnea, mild expiratory wheezing. Skin: - - vesicular erythematous rash at the gluteal region. Neurological: Alert and Oriented x 3 Result Diagrams: 12/16/18 05:12 12/16/18 05:12 Additional Lab and Data: Abnormal Lab Results 12/16/18 12/17/18 20:49 07:36 POC Glucose (mg/dL) 287 H 104 H Microbiology and Other Data: Microbiology Microbiology 12/15/18 03:50 Aerobic Blood Culture - Preliminary Blood Venous No Growth Day 2 Anaerobic Blood Culture - Preliminary No Growth Day 2 12/15/18 03:50 Aerobic Blood Culture - Preliminary Blood Venous No Growth Day 2 Anaerobic Blood Culture - Preliminary No Growth Day 2 12/14/18 22:45 Nasal Screen MRSA (PCR) - Final Nasal Mrsa Not Detected 12/09/18 13:55 Nasal Screen MRSA (PCR) - Final Nasal Mrsa Not Detected 12/07/18 00:14 Streptococcus pneumoniae Ag Screen - Final Urine Negative S. pneumo Antigen 12/07/18 08:59 Nasal Screen MRSA (PCR) - Final Nasal Mrsa Not Detected Assess/Plan/Problems-Billing Assessment: 73 year old female PMH chronic hypoxic respiratory failure, severe COPD, current smoker 1/2 ppd, [place], s/p TAVR, pAfib (on Eliquis, CVAs with left sided deficits, Diabetes, p/w 2 months of progressive SOB and productive cough admitted with COPD exacerbation. - Patient Problems (1) Acute and chronic respiratory failure with hypoxia Current Visit: Yes Status: Acute Code(s): J96.21 - ACUTE AND CHRONIC RESPIRATORY FAILURE WITH HYPOXIA SNOMED Code(s): 14043847 Comment: Improved. Due to COPD exacerbation, at baseline 3 liters Nasal canula. Continue supplemental oxygen. (2) Atrial fibrillation with rapid ventricular response Current Visit: Yes Status: Acute Code(s): I48.91 - UNSPECIFIED ATRIAL FIBRILLATION SNOMED Code(s): 480540065648931 Comment: Currently rate controlled, did receive a dose of digoxin this admission to control HR. on chronic anticoagulation w/ eliquis (3) Pneumonia Current Visit: Yes Status: Acute Code(s): J18.9 - PNEUMONIA, UNSPECIFIED ORGANISM SNOMED Code(s): 532895655 Comment: She pulled her IV out, continue with doxycylcline. (4) DVT prophylaxis Current Visit: No Status: Acute Priority: High Code(s): CRH3363 - SNOMED Code(s): 154913203 Comment: Eliquis (5) CHF (congestive heart failure) Current Visit: No Status: Chronic Priority: High Code(s): I50.9 - HEART FAILURE, UNSPECIFIED SNOMED Code(s): 32060484 Comment: not in acute exacerbation. diastolic dysfunction, ECHO Jan 2018 EF 55-60%, monitor. (6) Diabetes Current Visit: No Status: Chronic Priority: High Code(s): E11.9 - TYPE 2 DIABETES MELLITUS WITHOUT COMPLICATIONS SNOMED Code(s): 64106255 Comment: home dose metformin, and insulin (7) COPD (chronic obstructive pulmonary disease) Current Visit: No Status: Chronic Priority: High Code(s): J44.9 - CHRONIC OBSTRUCTIVE PULMONARY DISEASE, UNSPECIFIED SNOMED Code(s): 74049918 Comment: with exacerbation- now resolved and back to baseline. received 5+ days of steroids, prednisone d/c'ed today continue nebs, inhalers. supplemental oxygen Status and Disposition: .
[2018-12-18] MEDS: Fluticasone NASAL SPRAY 50MCG* 16 gm SPRAY BTL INTRANASAL SCH (11:36)
[2018-12-18] MEDS: Metoprolol Succinate XL TAB* 25 MG PO SCH (11:36)
[2018-12-18] MEDS: Magnesium Oxide TAB* 400 MG PO SCH (13:24)
--- NOTE | 2018-12-18 13:34 | CONSULT ---
Consult Consult: Consult for Medical Decision Making Capacity S: Psychiatry is asked to re-evaluate capacity in this 73 y.o. single, white female admitted to Medicine on December 07 due to dyspnea and COPD exacerbation. She has been requiring supplemental nasal oxygen and is undergoing a course of IV antibiotics for presumptive pneumonia. When evaluated by this clinician two days ago (12/16) she failed to demonstrate an appropriate appreciation of the risks involved with leaving the hospital AMA, as she was not medically cleared for discharge at that time but wanted to leave, and my judgment was that she lacked capacity for that choice. According to Hospitalist attending, Moni Magallanes, the patient's clinical picture has improved since then. Ms. Regalado is breathing better and no longer requiring IV antibiotics or large concentrations of O2. As per her attending physician she is now essentially medically cleared for discharge back to her assisted living facility, the [facility] in [place], [place]. Unfortunately, the facility is refusing to accept her back and the patient refuses to return there, citing interpersonal difficulties over the past year and half living there. The patient is requesting discharge to emergency housing in her [place] [facility] and the primary team is wondering if she has capacity to choose this in an informed fashion. On exam the patient remains awake, oriented, and aware of her diagnosis of "pneumonia" similar to her presentation 2 days prior. On this occasion, however , she demonstrates no evidence of irritability or shortness of breath. She clearly states her preference to be discharged to the [facility] office in [place], [place] where she will request an updated Medicaid card and emergency senior living. She is agreeable to following up with her primary care physician, darryl Marrero, and continuing with whatever medications and oxygen requirements are prescribed by her doctors on her discharge from the hospital. During this examination she is able to acknowledge risks such as "my breathing getting worse " or "getting confused" as potential problems that could arise if she were not to follow through with adhering to medical treatment after discharge. O: aging, obese white female in pink sweat clothes; fair grooming, cooperative and calm; euthymic mood with full affect; denies SI or HI; insight and judgment fair given awareness of her diagnosis and appreciation of risks of discontinuing medical treatment; awake and alert; oriented to place time and situation A/P: Capacity: During our interaction, Ms. Regalado demonstrated a reasonable understanding of her illness, and an informed appreciation of the risks of discontinuing pharmaco and oxygen therapies for her condition status post discharge. In my judgment, she has the capacity to make an informed decision about choosing discharge to emergency housing services in her [facility]. As we have seen in this very case, capacity is subject to change in these situations and psychiatry can be re-consulted in the event of any alterations in her presentation/situation. I have discussed my opinion with the patient, unit staff and attending hospitalist, Dr. Magallanes. Thank you for the consult.
[2018-12-18] MEDS: Acetaminophen TAB* 325 MG PO PRN (19:49)
[2018-12-18] MEDS: Atorvastatin* 40 MG TAB PO SCH (23:27)
[2018-12-18] MEDS: Cetirizine* 10 MG TAB PO SCH (23:42)
[2018-12-19] MEDS: NS 0.9% IVPB SCH ×4 (02:43→18:19)
[2018-12-19] MEDS: ACYCLOVIR IVPB SCH ×4 (02:43→18:19)
[2018-12-19] MEDS: Acetaminophen TAB* 325 MG PO PRN (04:01)
[2018-12-19] MEDS: Polyethylene Glycol 3350* 17 GM PACKET PO PRN ×2 (05:58→20:58)
[2018-12-19] MEDS: fentaNYL Patch Check Q Shift 1 NOTE SCH ×2 (07:33→18:28)
[2018-12-19] MEDS: Tiotropium CAP.INH* CAP.INH/18 MCG (USE ORDER SET !) INH SCH (07:35)
[2018-12-19] MEDS: Mometasone/Formoter 200/5 MDI INH SCH ×2 (07:35→19:32)
[2018-12-19] MEDS: Pregabalin CAP(*) 100 MG PO SCH ×3 (08:41→21:00)
[2018-12-19] MEDS: Apixaban* 5 MG TAB PO SCH ×2 (08:41→21:00)
[2018-12-19] MEDS: Docusate CAP* 100 MG PO SCH (08:41)
[2018-12-19] MEDS: Senna TAB PO SCH (08:42)
[2018-12-19] MEDS: DOXYcycline CAP(*) 100 MG PO SCH (08:42)
[2018-12-19] MEDS: Insulin GLARGINE(*) 1 UNITS UNIT SUBCUT SCH (08:42)
[2018-12-19] MEDS: amLODIPine TAB* 5 MG PO SCH (08:42)
[2018-12-19] MEDS: metFORMIN* 500 MG TAB PO SCH ×2 (08:42→17:50)
[2018-12-19] MEDS: Pramipexole TAB* 0.5 MG PO SCH ×2 (08:42→20:59)
[2018-12-19] MEDS: Metoprolol Succinate XL TAB* 25 MG PO SCH (08:42)
[2018-12-19] MEDS: Insulin LISPRO* 1 UNITS UNIT SUBCUT SCH ×4 (08:42→20:58)
[2018-12-19] MEDS: Hydrochlorothiazide TAB* 25 MG PO SCH (08:43)
[2018-12-19] MEDS: Fluticasone NASAL SPRAY 50MCG* 16 gm SPRAY BTL INTRANASAL SCH (08:47)
[2018-12-19] MEDS: Magnesium Oxide TAB* 400 MG PO SCH (12:18)
--- NOTE | 2018-12-19 13:22 | PN ---
Subjective Date of Service: 12/19/18 Interval History: Patient seen and examined today, plan was for discharge today, however things are not in order for her to get emergency housing through [facility]. This morning patient reports no issues, no trouble breathing, no fever, no chills, no shortness of breath, she is on oxygen with occasional coughing. Objective Active Medications: Acetaminophen (Tylenol Tab*) 650 mg PO Q6H PRN PRN Reason: PAIN SCALE 1-5 Last Admin: 12/19/18 04:01 Dose: 650 mg Albuterol/Ipratropium (Duoneb (Albuterol 2.5 Mg/Ipratropium 0.5 Mg)) 1 neb INH [id number] AWAKE PRN PRN Reason: SOB/WHEEZING Last Admin: 12/13/18 19:39 Dose: 1 neb Amlodipine Besylate (Norvasc Tab*) 10 mg PO DAILY [facility] Last Admin: 12/19/18 08:42 Dose: 10 mg Apixaban (Eliquis*) 5 mg PO BID [facility] Last Admin: 12/19/18 08:41 Dose: 5 mg Atorvastatin Calcium (Lipitor*) 40 mg PO 2100 [facility] Last Admin: 12/18/18 23:27 Dose: 40 mg Atropine Sulfate (Atropine 1mg/Ml Inj*) 0.5 mg IV PUSH .Q5MIN PRN PRN Reason: HR <40 Cetirizine HCl (Zyrtec*) 10 mg PO BEDTIME [facility] Last Admin: 12/18/18 23:42 Dose: 10 mg Dextrose (D50w Syringe 50 Ml*) 12.5 gm IV PUSH .FOR FS < 60 - SS PRN PRN Reason: FS < 60 Diphenhydramine HCl (Benadryl Po*) 25 mg PO DAILY PRN PRN Reason: ITCHING Docusate Sodium (Colace Cap*) 200 mg PO DAILY [facility] Last Admin: 12/19/18 08:41 Dose: 200 mg Doxycycline Hyclate (Vibramycin Cap(*)) 100 mg PO BID [facility] Last Admin: 12/19/18 08:42 Dose: 100 mg Fentanyl (Duragesic Patch 25 Mcg/Hr*) 25 mcg TRANSDERM Q72H [facility] Last Admin: 12/17/18 13:41 Dose: 25 mcg Fluticasone Propionate (Flonase Nasal [place] 50mcg*) 1 spray INTRANASAL DAILY [facility] Last Admin: 12/19/18 08:47 Dose: Not Given Hydrochlorothiazide (Hydrodiuril Tab*) 25 mg PO DAILY [facility] Last Admin: 12/19/18 08:43 Dose: 25 mg Acyclovir Sodium 550 mg/ (Sodium Chloride) 261 mls @ 261 mls/hr IVPB Q8H [facility] Last Admin: 12/19/18 09:47 Dose: 261 mls/hr Insulin Glargine (Lantus(*)) 10 units SUBCUT Q24H [facility] Last Admin: 12/19/18 08:42 Dose: 10 unit Insulin Human Lispro (Humalog*) 0 units SUBCUT ACHS [facility]; Protocol Last Admin: 12/19/18 12:18 Dose: 1 units Magnesium Oxide (Magox 400 Tab*) 400 mg PO DAILY@1130 [facility] Last Admin: 12/19/18 12:18 Dose: 400 mg Metformin HCl (Glucophage*) 500 mg PO 0800,1700 [facility] Last Admin: 12/19/18 08:42 Dose: 500 mg Metoprolol Succinate (Toprol Xl Tab*) 25 mg PO DAILY [facility] Last Admin: 12/19/18 08:42 Dose: 25 mg Mometasone Furoate/Formoterol Fumar (Dulera 200/5 Mdi*) 2 puff INH BID [facility] Last Admin: 12/19/18 07:35 Dose: 2 puff Nitroglycerin (Nitroglycerin Tab 0.4 Mg*) 0.4 mg SL Q5M PRN PRN Reason: chest pain Last Admin: 12/15/18 00:09 Dose: 0.4 mg Pto: Hydrocortisone Acetate [Vanicream Hc] 57 Gm 0 gm TOPICAL TID PRN PRN Reason: DRY SKIN Oxycodone HCl (Roxycodone Tab*) 5 mg PO Q8H PRN PRN Reason: PAIN - BREAKTHROUGH Last Admin: 12/18/18 23:29 Dose: 5 mg Pharmacy Profile Note (Fentanyl Patch Check Q Shift) 1 note N/A 0700,1900 [facility] Last Admin: 12/19/18 07:33 Dose: 1 note Polyethylene Glycol/Electrolytes (Miralax*) 17 gm PO DAILY PRN PRN Reason: CONSTIPATION Last Admin: 12/19/18 05:58 Dose: 17 gm Pramipexole Dihydrochloride (Mirapex Tab*) 1 mg PO BID [facility] Last Admin: 12/19/18 08:42 Dose: 1 mg Pregabalin (Lyrica Cap(*)) 100 mg PO TID [facility] Last Admin: 12/19/18 08:41 Dose: 100 mg Senna (Senokot Tab*) 2 tab PO DAILY [facility] Last Admin: 12/19/18 08:42 Dose: 2 tab Tiotropium [place] (Spiriva Cap.Inh*) 1 cap INH DAILY [facility] Last Admin: 12/19/18 07:35 Dose: 1 cap Vital Signs - 8 hr 12/19/18 12/19/18 12/19/18 07:33 07:39 07:56 Temperature Pulse Rate 65 64 Respiratory 16 18 16 Rate Blood Pressure 139/74 (mmHg) O2 Sat by Pulse 99 97 Oximetry 12/19/18 12/19/18 12/19/18 08:41 11:02 12:23 Temperature 98.3 F Pulse Rate 58 Respiratory 20 16 16 Rate Blood Pressure 132/65 (mmHg) O2 Sat by Pulse 98 Oximetry Oxygen Devices in Use Now: Nasal Cannula Appearance: lying in bed, with oxygen via nasal canula, not in distress Respiratory: - - scattered wheezing, no use of accessory muscles, no tachypnea Cardiovascular: NL Sounds; No Murmurs; No JVD, No Edema, - - irregularly irregular. Abdominal: NL Sounds; No Tenderness; No Distention, No Hepatosplenomegaly Extremities: No Edema Neurological: Alert and Oriented x 3 Result Diagrams: 12/16/18 05:12 12/16/18 05:12 Additional Lab and Data: Abnormal Lab Results 12/16/18 12/17/18 20:49 07:36 POC Glucose (mg/dL) 287 H 104 H Microbiology and Other Data: Microbiology Microbiology 12/15/18 03:50 Aerobic Blood Culture - Preliminary Blood Venous No Growth Day 2 Anaerobic Blood Culture - Preliminary No Growth Day 2 12/15/18 03:50 Aerobic Blood Culture - Preliminary Blood Venous No Growth Day 2 Anaerobic Blood Culture - Preliminary No Growth Day 2 12/14/18 22:45 Nasal Screen MRSA (PCR) - Final Nasal Mrsa Not Detected 12/09/18 13:55 Nasal Screen MRSA (PCR) - Final Nasal Mrsa Not Detected 12/07/18 00:14 Streptococcus pneumoniae Ag Screen - Final Urine Negative S. pneumo Antigen 12/07/18 08:59 Nasal Screen MRSA (PCR) - Final Nasal Mrsa Not Detected Assess/Plan/Problems-Billing Assessment: 73 year old female PMH chronic hypoxic respiratory failure, severe COPD, current smoker 1/2 ppd, [place], s/p TAVR, pAfib (on Eliquis, CVAs with left sided deficits, Diabetes, p/w 2 months of progressive SOB and productive cough admitted with COPD exacerbation. - Patient Problems (1) Acute and chronic respiratory failure with hypoxia Current Visit: Yes Status: Acute Code(s): J96.21 - ACUTE AND CHRONIC RESPIRATORY FAILURE WITH HYPOXIA SNOMED Code(s): 74802973 Comment: Improved. Due to COPD exacerbation, at baseline 3 liters Nasal canula. Continue supplemental oxygen. continue inhalers. has oxygen concentrator at her [facility] facility, which upon discharge patient will be able to get all her belongings. (2) Atrial fibrillation with rapid ventricular response Current Visit: Yes Status: Acute Code(s): I48.91 - UNSPECIFIED ATRIAL FIBRILLATION SNOMED Code(s): 381352042153283 Comment: Currently rate controlled, did receive a dose of digoxin this admission to control HR. on chronic anticoagulation w/ eliquis (3) Pneumonia Current Visit: Yes Status: Acute Code(s): J18.9 - PNEUMONIA, UNSPECIFIED ORGANISM SNOMED Code(s): 272667333 Comment: She pulled her IV out, continue with doxycylcline, she has had the complete course of antibiotics. (4) DVT prophylaxis Current Visit: No Status: Acute Priority: High Code(s): BDX8555 - SNOMED Code(s): 553645899 Comment: Eliquis (5) CHF (congestive heart failure) Current Visit: No Status: Chronic Priority: High Code(s): I50.9 - HEART FAILURE, UNSPECIFIED SNOMED Code(s): 13512429 Comment: not in acute exacerbation. diastolic dysfunction, ECHO Jan 2018 EF 55-60%, monitor. (6) Diabetes Current Visit: No Status: Chronic Priority: High Code(s): E11.9 - TYPE 2 DIABETES MELLITUS WITHOUT COMPLICATIONS SNOMED Code(s): 34718459 Comment: home dose metformin, and insulin (7) COPD (chronic obstructive pulmonary disease) Current Visit: No Status: Chronic Priority: High Code(s): J44.9 - CHRONIC OBSTRUCTIVE PULMONARY DISEASE, UNSPECIFIED SNOMED Code(s): 34244010 Comment: with exacerbation- now resolved and back to baseline. received 5+ days of steroids, prednisone d/c'ed continue nebs, inhalers. supplemental oxygen (8) Zoster Current Visit: Yes Status: Acute Code(s): B02.9 - ZOSTER WITHOUT COMPLICATIONS SNOMED Code(s): 7052834 Comment: Zoster at the buttock: acyclovir. Status and Disposition: working with CM closely for discharge
[2018-12-19] MEDS: oxyCODONE TAB* 5 MG TAB PO PRN (14:18)
[2018-12-19] MEDS: Atorvastatin* 40 MG TAB PO SCH (20:59)
[2018-12-19] MEDS: Cetirizine* 10 MG TAB PO SCH (20:59)
[2018-12-20] MEDS: oxyCODONE TAB* 5 MG TAB PO PRN (00:15)
[2018-12-20 00:35] LABS: Varicella Zoster Result Negative (Negative); Varicella Zoster Source LOWER BACK BLISTER
[2018-12-20] MEDS: ACYCLOVIR IVPB SCH ×2 (02:02→09:11)
[2018-12-20] MEDS: NS 0.9% IVPB SCH ×2 (02:02→09:11)
[2018-12-20] MEDS: Acetaminophen TAB* 325 MG PO PRN (03:22)
[2018-12-20 04:38] VITALS: BP 129/65
[2018-12-20] MEDS: fentaNYL Patch Check Q Shift 1 NOTE SCH (07:19)
[2018-12-20] MEDS: Tiotropium CAP.INH* CAP.INH/18 MCG (USE ORDER SET !) INH SCH (07:21)
[2018-12-20] MEDS: Mometasone/Formoter 200/5 MDI INH SCH (07:21)
[2018-12-20] MEDS: Insulin GLARGINE(*) 1 UNITS UNIT SUBCUT SCH (09:11)
[2018-12-20] MEDS: Fluticasone NASAL SPRAY 50MCG* 16 gm SPRAY BTL INTRANASAL SCH (09:11)
[2018-12-20] MEDS: Insulin LISPRO* 1 UNITS UNIT SUBCUT SCH (09:11)
[2018-12-20] MEDS: amLODIPine TAB* 5 MG PO SCH (09:12)
[2018-12-20] MEDS: Hydrochlorothiazide TAB* 25 MG PO SCH (09:13)
[2018-12-20] MEDS: Senna TAB PO SCH (09:13)
[2018-12-20] MEDS: Pregabalin CAP(*) 100 MG PO SCH (09:13)
[2018-12-20] MEDS: Pramipexole TAB* 0.5 MG PO SCH (09:13)
[2018-12-20] MEDS: metFORMIN* 500 MG TAB PO SCH (09:14)
[2018-12-20] MEDS: Metoprolol Succinate XL TAB* 25 MG PO SCH (09:14)
[2018-12-20] MEDS: Docusate CAP* 100 MG PO SCH (09:14)
[2018-12-20] MEDS: Apixaban* 5 MG TAB PO SCH (09:14)
--- NOTE | 2018-12-20 15:30 | DS ---
CC: Dr. Lidia Marrero; Dr. Figueroa; Dr. Valencia Cary DISCHARGE SUMMARY: DATE OF ADMISSION: 12/07/18 DATE OF DISCHARGE: 12/20/18 PRIMARY CARE PROVIDER: Dr. Lidia Marrero. REASON FOR ADMISSION: Shortness of breath, cough, chest pain. CONSULTANTS DURING THE COURSE OF THE ADMISSION: Included: 1. Dr. Figueroa, psychiatrist. 2. Dr. Valencia Cary, Palliative Care. HOSPITAL COURSE: This is a 73-year-old female with past medical history of COPD , on chronic home oxygen, atrial fibrillation, congestive heart failure, myocardial infarction, hyperlipidemia, who was brought into the hospital because of shortness of breath. She was found to have acute on chronic respiratory failure due to COPD exacerbation. The patient was started on steroids, her home medications were restarted, azithromycin was started for COPD exacerbation. Her home medications were continued. The patient had a CTA done of the chest, which showed no pulmonary embolus, small fluid in the pericardial space, coronary calcification status post TAVR procedure. A chest x-ray was done, which showed no acute cardiopulmonary disease. The patient continued to improve slowly. The patient was started on 5 L nasal cannula and at some point was also increased up to 7 L nasal cannula, which we eventually weaned down to 3 L nasal cannula. Prednisone taper was started. The patient also ended up going into the ICU for a short while because she developed atrial fibrillation with rapid ventricular response, received digoxin x1 dose and was continued on her home dose Eliquis. Initiated Vapotherm overnight while in the intensive care unit. Vapotherm was eventually weaned off to 4 L nasal cannula and antibiotics were brought in to include aztreonam and vancomycin. Eventually, antibiotics were changed to doxycycline. The patient's oxygen was weaned off to home oxygen 3 liters nasal canula. Regarding the discharge planning on 12/16/18, the patient was not yet optimized to get discharged and became very angry and agitated, and wanted to leave against medical advice at which point psychiatrist, Dr. Figueroa, was consulted regarding capacity. On 12/16/18, the patient was not in capacity to make her decision to leave against medical advice per Psychiatry. Eventually, the patient was less angry and more reasonable and we had a reconsult with Psychiatry with Dr. Figueroa on 12/18/18, at which point the patient was able to make own decision and had capacity to make the decisions. Eventually, with the case management's help, we were able to come up with a discharge planning. The patient does not want to return to [facility]. Appears that in order to get discharged from facility and get emergency housing, the patient has to get an eviction notice from [facility] and collect all her belongings. The case management and myself were in communication with the facility at [facility] for discharge planning. A cab ride was arranged for the patient to go to [facility] to get the official eviction notice and her supplies and then get a cab back to the [facility] Facility to get an emergency housing via [facility]. The patient is to collect her home oxygen concentrator from [facility] as well along with all her medications and clothing. Her hospital course was also complicated by the patient developing herpes zoster at the buttock region for which acyclovir was started. The patient was eventually weaned off of steroids as well as finished a course of antibiotics through the hospital course. Through the course, we were giving her insulin sliding scale as metformin was held temporarily. DISCHARGE MEDICATIONS: Include: 1. Acyclovir 800 mg t.i.d. for 21 tablets. 2. Amlodipine 10 mg daily. Continuation of her home medications which include: 1. Tylenol 325 mg, 650 mg every 6 hours as needed for fever and pain rated 1 through 5. 2. DuoNeb 2.5/3 mL 0.083% every 4 hours as needed for nebulizing treatment for wheezing. 3. Albuterol inhaler 2 puffs every 4 hours as needed. 4. Eliquis 5 mg b.i.d. 5. Lipitor 40 mg at bedtime. 6. Budesonide/fumarate 2 puffs inhaled twice a day. 7. Valium 5 mg b.i.d. for anxiety. 8. Benadryl 25 mg daily. 9. Fentanyl patch 25 mcg every 72 hours. 10. Hydrochlorothiazide 25 mg daily. 11. Hydrocortisone topical t.i.d. as needed. 12. Xyzal 5 mg at bedtime. 13. Magnesium oxide 400 mg daily. 14. Metformin 500 mg b.i.d. 15. Metoprolol succinate 25 mg daily. 16. Nitroglycerin 0.5 mg p.r.n. as needed for chest pain. 17. Oxycodone/Tylenol 1 tablet 7.5 mg/325 every 8 hours as needed. 18. Pramipexole 1 mg b.i.d. 19. Pregabalin 200 mg t.i.d. 20. Triamcinolone 1 puff nasal daily. 21. Incruse Ellipta 62.5 mcg 1 puff daily. DISCHARGE INSTRUCTIONS: The patient is to follow up with the primary care doctor, Dr. Lidia Marrero, phone number has been given. A referral for [facility] has been given. [facility] information has been given. The patient is told to return to the emergency for fevers, chills, worsening cough, shortness of breath. To use her oxygen at 3 L and to use her oxygen concentrator and to contact [facility] for her supplies. The patient has been instructed to take her medication as prescribed. The patient is told to return to the emergency room should she develop any new issues. I discussed with the patient regarding this is not a safe discharge plan as she is going into the emergency housing. We prefer that she goes to a facility; however, she has capacity to make her own decisions and she verbalized understanding of not taking care of herself and she understands that she needs to take her oxygen; otherwise, her oxygen could drop leading to pulmonary arrest. She understands that she is to take her diabetic medication, which includes metformin. She understands the risk of uncontrolled diabetes which includes stroke, heart attacks, going into a coma, dehydration, developing urine infection as well as amputations of her legs. PHYSICAL EXAM: BP: 129/65, HR: 60, RR: 16, O2: 95% on 3L NC GEN: elderly female in bed, not in distress HEENT: Pupils equal round reactive to light, No JVD Heart: No chest wall tenderness, irregularly irregular, no murmurs Lungs: no tachypnea, no use of accessory muscles, mild expiratory wheezing Abdomen: Bowel sounds normoactive, soft, non-tender, non-distended Extremities: doralis pedis 2+ bilaterally, no lower extremity edema. Neuro: AA/O X 3. DISCHARGE DIAGNOSES: Include: 1. Acute on chronic hypoxic respiratory failure, acute chronic obstructive pulmonary disease exacerbation. 2. Chronic atrial fibrillation, on anticoagulation. 3. Pneumonia. 4. Diabetes. 5. Congestive heart failure with ejection fraction of 55% to 60% with diastolic dysfunction, preserved ejection fraction, pneumonia. 6. Zoster. 7. Atrial Fibrillation, episode of RVR now resolved DISCHARGE DISPOSITION: The patient is to be discharged via cab to the emergency housing with [facility]. DISCHARGE CONDITION: Fair and guarded as the patient is living in an unstable home situation, though she is able to make her own decisions. [id number]/CPS #: [id number] MTDD
== END 2018-12-20 10:45 | disposition home or self-care (01) | DRG 189 ==
LOC: ED 15:53 → MED 12-07 08:03 → OBSVTOIN 12-08 23:48 → ICU 12-09 13:42 → MED 12-10 16:46 → ICU 12-14 20:59 → MEDTELE 12-15 16:47
PROVIDERS: ADMIT Internal Medicine; ATTEND Internal Medicine
DX: J96.21 Acute and chronic respiratory failure with hypoxia (principal); J18.9 Pneumonia, unspecified organism; J44.1 Chronic obstructive pulmonary disease with (acute) exacerbation; I50.32 Chronic diastolic (congestive) heart failure; J44.0 Chronic obstructive pulmonary disease with (acute) lower respiratory infection; F17.210 Nicotine dependence, cigarettes, uncomplicated; I11.0 Hypertensive heart disease with heart failure; E78.5 Hyperlipidemia, unspecified; I48.0 Paroxysmal atrial fibrillation; E11.51 Type 2 diabetes mellitus with diabetic peripheral angiopathy without gangrene; R29.6 Repeated falls; F32.9 Major depressive disorder, single episode, unspecified; G25.81 Restless legs syndrome; E03.9 Hypothyroidism, unspecified; I25.10 Atherosclerotic heart disease of native coronary artery without angina pectoris; G40.909 Epilepsy, unspecified, not intractable, without status epilepticus; G89.29 Other chronic pain; K21.9 Gastro-esophageal reflux disease without esophagitis; M10.9 Gout, unspecified; F41.9 Anxiety disorder, unspecified; J45.909 Unspecified asthma, uncomplicated; G47.30 Sleep apnea, unspecified; M19.90 Unspecified osteoarthritis, unspecified site; M81.0 Age-related osteoporosis without current pathological fracture; H91.90 Unspecified hearing loss, unspecified ear; R00.1 Bradycardia, unspecified; B02.9 Zoster without complications; E66.9 Obesity, unspecified; I48.2 Chronic atrial fibrillation; Z86.73 Personal history of transient ischemic attack (TIA), and cerebral infarction without residual deficits; Z90.49 Acquired absence of other specified parts of digestive tract; Z90.710 Acquired absence of both cervix and uterus; Z88.8 Allergy status to other drugs, medicaments and biological substances; Z88.1 Allergy status to other antibiotic agents; I25.2 Old myocardial infarction; Z79.01 Long term (current) use of anticoagulants; Z95.2 Presence of prosthetic heart valve; Z88.6 Allergy status to analgesic agent; Z88.5 Allergy status to narcotic agent; Z88.0 Allergy status to penicillin; Z88.2 Allergy status to sulfonamides; Z82.49 Family history of ischemic heart disease and other diseases of the circulatory system; Z81.4 Family history of other substance abuse and dependence; Z72.89 Other problems related to lifestyle; Z99.81 Dependence on supplemental oxygen; Z85.42 Personal history of malignant neoplasm of other parts of uterus; Z92.3 Personal history of irradiation; Z83.3 Family history of diabetes mellitus; Z68.32 Body mass index [BMI] 32.0-32.9, adult; Z79.84 Long term (current) use of oral hypoglycemic drugs
CPT/HCPCS: 36415; 36600; 71045; 71275; 80048; 80053; 80307; 80320; 80329; 81003; 81015; 82803; 83605; 83735; 83880; 84443; 84484; 85025; 85610; 85730; 86140; 87040; 87070; 87205; 87641; 87798; 87899; 93005; 94640; 99285; A9270-GY; G0378; G0480; G8978-GP-CI; G8978-GP-CK; G8979-GP-CI; G8987-GO-CJ; G8988-GO-CI; J0133; J0456; J0461; J0610; J1160; J1940; J2920; J2930; J3010; J3370; J3475; J7512; Q9967

== ENCOUNTER 2019-02-13 04:21 | Inpatient (IN) | payer MEDICARE, MEDICAID ==
[2019-02-13] MEDS ORDERED: methylPREDNISolone 125 MG* 2 ML VIAL IV ONE (04:34)
[2019-02-13] MEDS ORDERED: Albuterol 0.5% CONC NEB.SOL* 5 MG/ML 20 ml BOT INH ONE (04:34)
[2019-02-13] MEDS ORDERED: Morphine 10 MG/ML VIAL (1 ml) IV ONE (04:35)
--- NOTE | 2019-02-13 04:57 | ED ---
Shortness of Breath - HPI Summary HPI Summary: Pt is a 73 y/o F presenting to the ED with a chief complaint of shortness of breath initially onset one week ago. She states she has been coughing up green phlegm, and that the shortness of breath increased in severity tonight. She denies fever. - History of Current Complaint Chief Complaint: EDShortnessOfBreath Time Seen by Provider: 02/13/19 04:29 Hx Obtained From: Patient Onset/Duration: Gradual Onset, Lasting Days, Still Present Timing: Constant Current Severity: Moderate Dyspnea At: Rest Aggravating Factors: Nothing Alleviating Factors: Nothing Associated Signs & Symptoms: Cough (Productive) - Allergy/Home Medications Allergies/Adverse Reactions: Allergies Allergy/AdvReac Type Severity Reaction Status Date / Time aspirin Allergy Unknown Verified 12/07/18 04:39 Reaction Details Carbapenems Allergy Unknown Verified 12/07/18 04:39 Reaction Details Cephalosporins Allergy Unknown Verified 12/07/18 04:39 Reaction Details ketorolac Allergy Unknown Verified 12/07/18 04:39 Reaction Details morphine Allergy Unknown Verified 12/07/18 04:39 Reaction Details Penicillins Allergy Unknown Verified 12/07/18 04:39 Reaction Details sulfamethoxazole Allergy Unknown Verified 12/07/18 04:39 [From Bactrim] Reaction Details trimethoprim [From Bactrim] Allergy Unknown Verified 12/07/18 04:39 Reaction Details PMH/Surg Hx/FS Hx/Imm Hx Previously Healthy: Yes Endocrine/Hematology History: Reports: Hx Anticoagulant Therapy, Hx Diabetes, Hx Thyroid Disease Denies: Hx Blood Transfusions Cardiovascular History: Reports: Hx Angina, Hx Congestive Heart Failure, Hx Hypercholesterolemia, Hx Hypertension, Hx Peripheral Vascular Disease, Hx Syncope, Other Cardiovascular Problems/Disorders - CHF Denies: Hx Pacemaker/ICD Respiratory History: Reports: Hx Asthma, Hx Chronic Bronchitis, Hx Chronic Obstructive Pulmonary Disease (COPD) - PT ON HOME O2 4 L/MIN, Hx Pneumonia, Hx Pulmonary Edema, Hx Seasonal Allergies, Hx Sleep Apnea Denies: Hx Lung Cancer GI History: Reports: Hx Gastroesophageal Reflux Disease History: Denies: Hx Renal Disease Musculoskeletal History: Reports: Hx Arthritis, Hx Back Problems, Hx Bursitis, Hx Orthopedic Injury, Hx Osteoporosis Denies: Hx Fibromyalgia Sensory History: Reports: Hx Contacts or Glasses, Hx Vision Problem, Hx Hearing Problem - [place] Denies: Hx Hearing Aid Opthamlomology History: Reports: Hx Contacts or Glasses, Hx Vision Problem Neurological History: Reports: Hx CVA Denies: Hx Dementia, Hx Developmental Delay, Hx Headaches, Hx Migraine, Hx Seizures, Hx Spinal Cord Injury, Hx Transient Ischemic Attacks (TIA) Psychiatric History: Reports: Hx Anxiety, Hx Depression, Hx of Violent Episodes Against Others Denies: Hx Eating Disorder, Hx Panic Disorder - Cancer History Cancer Type, Location and Year: Uterine Cancer Hx Chemotherapy: No Hx Radiation Therapy: Yes Hx Palliative Cancer Treatment: No - Surgical History Surgery Procedure, Year, and Place: cholecystectomy, carpal tunnel bilat hands, hysterectomy, heart valve repair/replacement (2018) Hx Anesthesia Reactions: No Infectious Disease History: Yes Infectious Disease History: Reports: Hx of Known/Suspected MRSA Denies: Traveled Outside the [place] in Last 30 Days - Family History Known Family History: Positive: Hypertension, Diabetes - Social History Alcohol Use: Rare Alcohol Amount: wine Hx Substance Use: No Substance Use Type: Reports: None Hx Tobacco Use: Yes Smoking Status (MU): Light Every Day Tobacco Smoker Type: Cigarettes Amount Used/How Often: 1/2 pack a day Have You Smoked in the Last Year: Yes Review of Systems Negative: Fever Positive: Shortness Of Breath, Cough All Other Systems Reviewed And Are Negative: Yes Physical Exam - Summary Physical Exam Summary: Appearance: Elderly, cushingoid woman on the stretcher with mild-moderate respiratory distress with tachypnea. Skin: Warm, dry, no obvious rash Eyes: sclera anicteric, no conjunctival pallor ENT: mucous membranes moist, pharynx appears normal Neck: Supple, nontender Respiratory: Prolonged expiration with diffuse expiratory wheezes and moderate impairment in ventilation Cardiovascular: Irregularly irregular rhythm. No murmurs. Normal distal pulses in tibial and radial bilaterally. Abdomen: Soft, nontender, normal active bowel sounds present Musculoskeletal: Normal, Strength/ROM Intact Neurological: A&Ox3, awake and alert, mentation is normal, speech is fluent and appropriate Psychiatric: affect is normal, does not appear anxious or depressed Triage Information Reviewed: Yes Vital Signs On Initial Exam: Initial Vitals Temp Pulse Resp BP Pulse Ox 96.7 F 86 18 163/95 92 02/13/19 04:33 02/13/19 04:33 02/13/19 04:33 02/13/19 04:33 02/13/19 04:33 Vital Signs Reviewed: Yes Diagnostics - Vital Signs Vital Signs Temp Pulse Resp BP Pulse Ox 02/13/19 04:33 96.7 F 86 18 163/95 92 - Laboratory Result Diagrams: 02/13/19 05:01 02/13/19 05:01 Lab Statement: Any lab studies that have been ordered have been reviewed, and results considered in the medical decision making process. - Radiology CXR Radiology Interpretation Completed By: ED Physician Summary of Radiographic Findings: No acute process. No significant change from prior. Pending official radiology report. - EKG 044 Cardiac Rate: Other Rate - atrial fibrillation - 86bpm EKG Rhythm: Atrial Fibrillation ST Segment: Normal Ectopy: None Summary of EKG Findings: EKG at 0441 shows atrial fibrillation at 86bpm with nml axis, nml intervals, and no STEMI. Course/Dx - Course Course Of Treatment: Pt is a 73 y/o F presenting to the ED with a chief complaint of shortness of breath initially onset one week ago. She states she has been coughing up green phlegm, and that the shortness of breath increased in severity tonight. She denies fever. On exam, the pt is cushingoid appearing in mild-moderate respiratory distress on the stretcher. She is tachypnic, and has prolonged expiration with diffuse expiratory wheezes and moderate impairment in ventilation. Her heart is irregularly irregular. EKG at 0441 shows atrial fibrillation at 86bpm with nml axis, nml intervals, and no STEMI. CXR shows no acute process and no significant change from prior, pending official radiology report. As of [address] Magallanes who will be accepting the pt to [facility] with dx of COPD exacerbation. He requested an ABG to be done. - Diagnoses Provider Diagnoses: COPD exacerbation Discharge ED - Sign-Out/Discharge Documenting (check all that apply): Patient Departure - Discharge Plan Condition: Stable Disposition: ADMITTED TO [facility] Referrals: Janes GAMING,Lidia Abraham [Primary Care Provider] - - Attestation Statements Document Initiated by Scribe: Yes Documenting Scribe: Kalina Collins Provider For Whom Erinn is Documenting (Include Credential): Linden Garg MD. Scribe Attestation: Kalina Mustafa, scribed for Linden Garg MD. on 02/13/19 at 0559. Status of Scribe Document: Ready Consult Consult: 1209 - B spoke with Dr. Magallanes who accepts the pt for admission to [facility] with dx of COPD exacerbation.
[2019-02-13 05:22] LABS: ABS Eosinophils 0.1 10^3/ul (0-0.6); ABS Lymphocytes 1.9 10^3/ul (1.0-4.8); ABS Monocytes 0.4 10^3/ul (0-0.8); ABS Neutrophils 4.5 10^3/ul (1.5-7.7); Hematocrit 38 % (35-47); Hemoglobin 12.7 g/dL (12.0-16.0); Lymphocyte % 27.1 %; Mean Corpuscular HGB Conc 33 g/dL (31-36); Mean Corpuscular Hemoglobin 32 pg (27-31); Mean Corpuscular Volume 95 fL (80-97); Mean Platelet Volume 8.8 fL (7.4-10.4); Nucleated Red Blood Cells % 0.1; Platelet Count 154 10^3/uL (150-450); Red Cell Distribution Width 14 % (10-15); White Blood Count 6.9 10^3/uL (3.5-10.8)
[2019-02-13 05:43] LABS: Albumin 4.1 g/dL (3.2-5.2); Albumin/Globulin Ratio 1.6 (1-3); BUN/Creatinine Ratio 30.9 (8-20); Calcium 8.8 mg/dL (8.6-10.3); EGFR African American 103.2 (>60); EGFR Non-African American 85.3 (>60); Globulin 2.5 g/dL (2-4); Potassium 3.8 mmol/L (3.5-5.0); Total Bilirubin 0.5 mg/dL (0.2-1.0); Total Protein 6.6 g/dL (6.4-8.9)
[2019-02-13] MEDS ORDERED: diPHENhydraMINE PO* 25 MG PO PRN (07:51)
[2019-02-13] MEDS ORDERED: Albuterol 2.5 MG/3 ML NEB.SOL* (0.083%) INH PRN (07:51)
[2019-02-13] MEDS ORDERED: Nitroglycerin TAB 0.4 MG* 0.4 MG TAB SL PRN (07:51)
[2019-02-13] MEDS ORDERED: Albuterol HFA INHALER* 8 gm MDI INH PRN (07:51)
[2019-02-13] MEDS ORDERED: Azithromycin 500 mg/250 ml NS 500 MG/250 ML BAG IVPB ONE (08:00)
[2019-02-13] MEDS ORDERED: Dextrose 50% VIAL 50 ml IV PUSH PRN (08:01)
[2019-02-13] MEDS: SPIRIVA Respimat* (tiotropium) 2.5 mcg/inh Inhaler INH SCH (09:48)
[2019-02-13] MEDS: Mometasone/Formoter 200/5 MDI INH SCH ×2 (09:48→22:28)
[2019-02-13] MEDS: oxyCODONE/Acetamin 5/325 MG* TAB PO PRN ×2 (09:52→15:14)
[2019-02-13] MEDS: Apixaban* 5 MG TAB PO SCH ×2 (09:53→20:50)
[2019-02-13] MEDS: Hydrochlorothiazide TAB* 25 MG PO SCH (09:53)
[2019-02-13] MEDS: Pregabalin CAP(*) 100 MG PO SCH ×3 (09:53→20:50)
[2019-02-13] MEDS: amLODIPine TAB* 5 MG PO SCH (09:53)
[2019-02-13] MEDS: Pramipexole TAB* 0.5 MG PO SCH ×2 (09:53→20:49)
[2019-02-13] MEDS: Fluticasone NASAL SPRAY 50MCG* 16 gm SPRAY BTL BOTH NARES SCH (09:54)
[2019-02-13] MEDS: Magnesium Oxide TAB* 400 MG PO SCH (09:54)
[2019-02-13] MEDS: Diazepam TAB(*) 5 MG PO SCH ×2 (09:54→20:49)
[2019-02-13] MEDS: Metoprolol Succinate XL TAB* 25 MG PO SCH (09:54)
--- NOTE | 2019-02-13 11:37 | HP ---
CC: Dr. Lidia Marrero* HISTORY AND PHYSICAL: DATE OF ADMISSION: 02/13/19 TIME OF EVALUATION: 7:40 a.m. PRIMARY CARE PROVIDER: Dr. Lidia Marrero. CHIEF COMPLAINT: Shortness of breath. HISTORY OF PRESENT ILLNESS: Mrs. Regalado is a 73-year-old female with a past medical history of chronic hypoxemic respiratory failure secondary to severe COPD, on 3 L of oxygen continuously, paroxysmal atrial fibrillation, depression , restless legs syndrome, hypothyroidism, CAD, status post [place], hypertension, hyperlipidemia, type 2 diabetes, diastolic CHF, seizure disorder, chronic pain, GERD, peripheral vascular disease, gout, aortic stenosis, status post TAVR, prior CVAs, carpal tunnel release, who presents to the emergency room with complaints of shortness of breath. The patient states she was on her usual state of health until a week ago when she started to experience progressive shortness of breath. She states that as the week went by, she became more and more short of breath and had to dial her oxygen up. She also initially had a dry cough that has progressed to productive cough with greenish sputum. She denies fever, chills, chest pain, palpitation, nausea, vomiting, diarrhea, or urinary complaints. She also complains of bilateral lower extremity pain that has been going on for "years." She states she did not take any of her medication yet and that is why her pain is worse now. The patient was admitted to [facility] from 12/07/18 until 12/20/18 with COPD exacerbation and pneumonia. During that admission, the patient responded well to clinical treatment, but it is described that she became very angry, very agitated, wanted to leave against medical advice and she was seen by Psychiatry regarding her capacity. On 12/16/18, she was deemed not to have capacity to make her own decisions, but on 12/18/18, she was reevaluated and at that point the patient was less angry, more reasonable and it was felt that she could make her own decision in her capacity to leave the hospital. During that hospital stay, the patient also developed herpes zoster at the buttock region. It is described that at that point she wanted to leave the [facility] and the plan was for her to be discharged, picker tender her belongings and then look into emergency housing via [facility]. At this point, the patient is too short of breath to explain exactly what had happened, but it is unclear to me what her living situation is at this time. PAST MEDICAL HISTORY: 1. Chronic hypoxemic respiratory failure, on 3 L of oxygen continuously secondary to severe COPD. 2. Paroxysmal atrial fibrillation. 3. Depression. 4. Restless legs syndrome. 5. Hypothyroidism. 6. Coronary artery disease, status post [place]. 7. Hypertension. 8. Hyperlipidemia. 9. Type 2 diabetes. 10. Diastolic CHF. 11. Seizure disorder. 12. Chronic pain. 13. GERD. 14. Peripheral vascular disease. 15. Gout. 16. Critical aortic stenosis, status post TAVR. 17. Status post CVAs. 18. Status post carpal tunnel release. 19. Status post cholecystectomy. 20. Status post hysterectomy. MEDICATION LIST: 1. Acetaminophen 650 mg p.o. q.6 hours p.r.n. pain or fever. 2. Albuterol 2.5 mg nebulized q.4 hours p.r.n. shortness of breath. 3. Albuterol HFA 2 puffs inhaled q.4 hours p.r.n. shortness of breath. 4. Amlodipine 10 mg p.o. daily. 5. Eliquis 5 mg p.o. b.i.d. 6. Atorvastatin 40 mg p.o. at bedtime. 7. Symbicort 160/4.5 two puffs inhaled b.i.d. 8. Diazepam 5 mg p.o. b.i.d. 9. Benadryl 25 mg p.o. daily as needed for itching. 10. Hydrochlorothiazide 25 mg p.o. daily. 11. Hydrocortisone cream topical 3 times as needed for itching. 12. Levocetirizine 5 mg p.o. at bedtime. 13. Magnesium oxide 400 mg p.o. daily. 14. Metformin 500 mg p.o. b.i.d. 15. Metoprolol succinate 25 mg p.o. daily. 16. Nitroglycerin 0.4 mg sublingual q.5 minutes p.r.n. chest pain. 17. Oxycodone/acetaminophen 7.5/325 mg 1 tab p.o. t.i.d. 18. Pramipexole 1 mg p.o. b.i.d. 19. Lyrica 200 mg p.o. t.i.d. 20. Triamcinolone nasal spray 1 puff nasal daily. 21. Incruse Ellipta 1 puff inhaled daily. ALLERGIES: The patient has reactions to ASPIRIN, CARBAPENEM, CEPHALOSPORINS, KETOROLAC, MORPHINE, PENICILLIN, BACTRIM. FAMILY HISTORY: As per records, the patient's mother of CHF in her 70s, father of a heart attack in his 70s. Two brothers of drug abuse. SOCIAL HISTORY: The patient has history of tobacco abuse, half a pack per day since she was 22, occasional alcohol use. Denies drug use. Surrogate decision - maker is her grandson, Omer Alexandra, phone number is [phone]. REVIEW OF SYSTEMS: A 14-point review of systems was performed and all the the pertinent negative and positive findings in the HPI. PHYSICAL EXAMINATION GENERAL: The patient is an elderly lady with disheveled appearance, lying in the ED stretcher, in mild respiratory distress, on Vapotherm. VITAL SIGNS: Temperature 96.7, heart rate is 62, respiratory rate is 23, oxygen saturation 95% on Vapotherm 40 L, FiO2 60%, blood pressure is 106/49. HEENT: Pupils are equal. Moist mucous membranes. CHEST: Breath sounds bilaterally with diffuse rhonchi and wheezing. CVS: Normal S1, S2. Regular rate and rhythm with a systolic murmur. ABDOMEN: Soft, nontender. Bowel sounds present. EXTREMITIES: No edema. NEURO: She is alert, awake, oriented x2 to self and place. Able to follow commands and move all 4 extremities. Face is symmetric. The patient is in poor hygiene with significant dirt caked on her feet and toenails. LABORATORY AND IMAGING DATA: The patient had a CBC that showed WBC of 6.9, hemoglobin of 12.7, hematocrit of 38, platelets of 154, 65% neutrophils. ABG showed a pH of 7.36, CO2 38, PaO2 74, bicarb 22, saturation 96% on Vapotherm. Chemistry showed sodium 140, potassium 3.8, chloride of 110, bicarb 22, BUN of 21, creatinine 0.6, glucose 122, lactic acid 0.9, calcium is 8.8. LFTs are normal. Troponin is 0. Her chest x-ray was read as stigmata of chronic obstructive pulmonary disease and probable pulmonary arterial hypertension with no superimposed acute cardiopulmonary process evident. EKG done on 02/13/19 at 04:40 a.m. shows sinus rhythm at 86 beats per minute with APCs. No acute ischemic changes and this is improved when compared from her prior EKG on 12/14/18, at that time she was in rapid AFib. ASSESSMENT AND PLAN: Mrs. Regalado is a 73-year-old lady with a complex medical history that includes severe chronic obstructive pulmonary disease with chronic hypoxemic respiratory failure, requiring continuous oxygen; paroxysmal atrial fibrillation; depression; restless legs syndrome; coronary artery disease , status post myocardial infarction; peripheral vascular disease; hypertension; hyperlipidemia; type 2 diabetes; diastolic congestive heart failure; seizure disorder; chronic pain; gastroesophageal reflux disease; aortic stenosis, status post TAVR; status post cerebrovascular accidents; carpal tunnel release; who presented to the emergency room with complaints of 1 week of progressive shortness of breath and cough, found to have chronic obstructive pulmonary disease exacerbation secondary to bronchitis. 1. Acute on chronic hypoxemic respiratory failure. The patient is now requiring Vapotherm to keep on oxygen saturation greater than 90%. She will be admitted as inpatient to the intensive care unit and we will continue oxygen supplementation. According to the patient's MOLST form, she wishes to be do not resuscitate, but would be agreeable with a trial of intubation if necessary. 2. Chronic obstructive pulmonary disease exacerbation secondary to bronchitis. The patient will be continued on bronchodilators and steroids and we will add azithromycin. On her prior admission, the patient was seen in consultation by Palliative Care (Dr. Cary) and at that point the patient confirmed she wished to be a do not resuscitate and most of the conversation was knowing about her living conditions at that time. Depending on how she progresses this admission, we may need to reconsult Palliative Care. 3. Coronary artery disease, appears to be stable. We will continue metoprolol , atorvastatin, and nitroglycerin p.r.n. 4. Paroxysmal atrial fibrillation. The patient appears to be in sinus rhythm at this time. We will continue metoprolol and apixaban. 5. Hypertension. We will continue metoprolol, hydrochlorothiazide, and amlodipine. 6. Type 2 diabetes. I am going to hold her metformin for now. We will do fingersticks with a lispro sliding scale. 7. Restless legs syndrome. We will continue her pramipexole. 8. Chronic pain. We will continue her usual oxycodone. 9. DVT prophylaxis. The patient has a score of 3 on the DVT Risk Assessment Guide and she will be continued on apixaban. 10. Code status. The patient has a MOLST form indicating she wishes to be do not resuscitate. SOCIAL ISSUES: We will need to investigate the patient's living condition. At this point, she is very short of breath and unable to give me much information, but it is mentioned on the records of her prior admission that she was planning to leave the [facility] and it is unclear what her living situation is currently. She is in a poor hygiene state with cake dirt on her feet as if she were walking barefoot on the street. So when she is breathing better, we can get more information about her current living situation. TIME SPENT: Approximately 60 minutes of critical care time was spent to complete this admission. [id number]/CPS #: [id number]
[2019-02-13] MEDS: Insulin LISPRO* 1 UNITS UNIT SUBCUT SCH ×3 (12:04→21:13)
[2019-02-13] MEDS ORDERED: Lactated Ringers 1000 ML Bag* 1,000 ML IV SCH (14:00)
[2019-02-13] MEDS: Acetaminophen TAB* 325 MG PO PRN (18:19)
[2019-02-13] MEDS: methylPREDNISolone SOD 40 MG* 1 ML VIAL IV SCH (18:29)
[2019-02-13] MEDS ORDERED: Nicotine* 4MG (FRUIT FLAVOR) GUM PO PRN (18:57)
[2019-02-13] MEDS: Atorvastatin* 40 MG TAB PO SCH (20:49)
[2019-02-13] MEDS: Cetirizine* 10 MG TAB PO SCH (20:49)
[2019-02-13] MEDS: Nicotine Patch Removal NOTE FOLLOW UP SCH (21:17)
[2019-02-13] MEDS: Nicotine PATCH 21 MG/24 HR* PATCH TRANSDERM SCH (21:17)
[2019-02-14] MEDS: oxyCODONE/Acetamin 5/325 MG* TAB PO PRN ×3 (03:45→21:24)
[2019-02-14] MEDS: methylPREDNISolone SOD 40 MG* 1 ML VIAL IV SCH ×2 (03:46→17:35)
[2019-02-14 05:40] LABS: ABS Lymphocytes 0.7 10^3/ul (1.0-4.8); ABS Monocytes 0.1 10^3/ul (0-0.8); ABS Neutrophils 6.8 10^3/ul (1.5-7.7); Hematocrit 40 % (35-47); Hemoglobin 13.4 g/dL (12.0-16.0); Lymphocyte % 9.1 %; Mean Corpuscular HGB Conc 34 g/dL (31-36); Mean Corpuscular Hemoglobin 32 pg (27-31); Mean Corpuscular Volume 95 fL (80-97); Mean Platelet Volume 8.4 fL (7.4-10.4); Platelet Count 167 10^3/uL (150-450); Red Blood Count 4.22 10^6 /uL (3.70-4.87); Red Cell Distribution Width 14 % (10-15); White Blood Count 7.7 10^3/uL (3.5-10.8)
[2019-02-14 05:52] LABS: BUN/Creatinine Ratio 30.5 (8-20); EGFR African American 121.6 (>60); EGFR Non-African American 100.5 (>60)
[2019-02-14] MEDS: SPIRIVA Respimat* (tiotropium) 2.5 mcg/inh Inhaler INH SCH (07:46)
[2019-02-14] MEDS: Mometasone/Formoter 200/5 MDI INH SCH ×2 (07:46→19:25)
[2019-02-14] MEDS: Insulin LISPRO* 1 UNITS UNIT SUBCUT SCH ×4 (07:56→22:12)
[2019-02-14] MEDS: Magnesium Oxide TAB* 400 MG PO SCH (07:58)
[2019-02-14] MEDS: Diazepam TAB(*) 5 MG PO SCH ×2 (07:58→22:12)
[2019-02-14] MEDS: Pregabalin CAP(*) 100 MG PO SCH ×3 (07:58→22:11)
[2019-02-14] MEDS: Metoprolol Succinate XL TAB* 25 MG PO SCH ×2 (07:58→17:28)
[2019-02-14] MEDS: Hydrochlorothiazide TAB* 25 MG PO SCH ×2 (07:58→17:28)
[2019-02-14] MEDS: Apixaban* 5 MG TAB PO SCH ×2 (07:59→22:12)
[2019-02-14] MEDS: amLODIPine TAB* 5 MG PO SCH (07:59)
[2019-02-14] MEDS: Nicotine PATCH 21 MG/24 HR* PATCH TRANSDERM SCH (08:03)
[2019-02-14] MEDS: Fluticasone NASAL SPRAY 50MCG* 16 gm SPRAY BTL BOTH NARES SCH (08:04)
[2019-02-14] MEDS: Pramipexole TAB* 0.5 MG PO SCH ×2 (08:04→22:11)
--- NOTE | 2019-02-14 08:36 | PN ---
Subjective Date of Service: 02/14/19 Interval History: HOSPITALIST PROGRESS NOTE Patient seen and examined at bedside. Care reviewed and d/w Emerita Cortez RN. Her breathing is better this AM, close to her usual. Her major complaint is bilateral LE pain and progressive weakness. States her PCP (Dr Marrero) told her "there's no solution for it". She left [place] home after her last admissions, and states she's not doing well at the hotel she's living. Describes frequent falls, states she has difficulty standing up. When able to walk for some distance, her legs "burn". Denies urinary or bowel incontinence. Family History: Unchanged from Admission Social History: Unchanged from Admission Past Medical History: Unchanged from Admission Objective Active Medications: Acetaminophen (Tylenol Tab*) 650 mg PO Q6H PRN PRN Reason: PAIN - MILD Last Admin: 02/13/19 18:19 Dose: 650 mg Albuterol (Ventolin 2.5 Mg/3 Ml Neb.Marjorie*) 2.5 mg INH Q4H PRN PRN Reason: SOB/WHEEZING Albuterol (Ventolin Hfa Inhaler*) 2 puff INH Q4H PRN PRN Reason: SOB/WHEEZING Amlodipine Besylate (Norvasc Tab*) 10 mg PO DAILY [facility] Last Admin: 02/14/19 07:59 Dose: 10 mg Apixaban (Eliquis*) 5 mg PO BID [facility] Last Admin: 02/14/19 07:59 Dose: 5 mg Atorvastatin Calcium (Lipitor*) 40 mg PO 2100 [facility] Last Admin: 02/13/19 20:49 Dose: 40 mg Cetirizine HCl (Zyrtec*) 10 mg PO BEDTIME [facility] Last Admin: 02/13/19 20:49 Dose: 10 mg Dextrose (Dextrose 50% Vial 50 Ml*) 25 ml IV PUSH .FOR FS < 60 - SS PRN PRN Reason: FS < 60 Diazepam (Valium Tab(*)) 5 mg PO BID [facility] Last Admin: 02/14/19 07:58 Dose: 5 mg Diphenhydramine HCl (Benadryl Po*) 25 mg PO DAILY PRN PRN Reason: ITCHING Fluticasone Propionate (Flonase Nasal [place] 50mcg*) 1 spray BOTH NARES DAILY [facility] Last Admin: 02/14/19 08:04 Dose: 1 spray Hydrochlorothiazide (Hydrodiuril Tab*) 25 mg PO DAILY [facility] Last Admin: 02/14/19 07:58 Dose: 25 mg Azithromycin (Zithromax 500 Mg/250 Ml) 500 mg in 250 mls @ 250 mls/hr IVPB Q24H [facility] Insulin Human Lispro (Humalog*) 0 units SUBCUT ACHS [facility]; Protocol Last Admin: 02/14/19 07:56 Dose: 1 units Magnesium Oxide (Magox 400 Tab*) 400 mg PO DAILY [facility] Last Admin: 02/14/19 07:58 Dose: 400 mg Methylprednisolone Sodium Succinate (Solu-Medrol 40 Mg) 40 mg IV Q12H [facility] Last Admin: 02/14/19 03:46 Dose: 40 mg Metoprolol Succinate (Toprol Xl Tab*) 25 mg PO DAILY [facility] Last Admin: 02/14/19 07:58 Dose: 25 mg Mometasone Furoate/Formoterol Fumar (Dulera 200/5 Mdi*) 2 puff INH BID [facility]; Protocol Last Admin: 02/14/19 07:46 Dose: 2 puff Nicotine (Nicotine Patch 21 Mg/24 Hr*) 1 patch TRANSDERM DAILY [facility] Last Admin: 02/14/19 08:03 Dose: 1 patch Nicotine Polacrilex (Nicotine Gum*) 4 mg PO Q2H PRN PRN Reason: CRAVING Nitroglycerin (Nitroglycerin Tab 0.4 Mg*) 0.4 mg SL Q5M PRN PRN Reason: chest pain Oxycodone/Acetaminophen (Percocet 5/325 Tab*) 1 tab PO Q4H PRN PRN Reason: PAIN - SEVERE Last Admin: 02/14/19 07:58 Dose: 1 tab Pharmacy Profile Note (Nicotine Patch Removal Note*) 1 note FOLLOW UP 2100 [facility] Last Admin: 02/13/19 21:17 Dose: Not Given Pramipexole Dihydrochloride (Mirapex Tab*) 1 mg PO BID [facility] Last Admin: 02/14/19 08:04 Dose: 1 mg Pregabalin (Lyrica Cap(*)) 200 mg PO TID [facility] Last Admin: 02/14/19 07:58 Dose: 200 mg Tiotropium [place] (Spiriva Respimat 2.5 Mcg) 2 puff INH DAILY [facility] Last Admin: 02/14/19 07:46 Dose: 2 puff Vital Signs - 8 hr 02/14/19 02/14/19 02/14/19 00:45 01:00 01:15 Temperature Pulse Rate 56 58 60 Respiratory 15 13 15 Rate Blood Pressure 150/66 150/74 150/71 (mmHg) O2 Sat by Pulse 98 98 98 Oximetry 02/14/19 02/14/19 02/14/19 01:30 01:45 02:00 Temperature Pulse Rate 57 53 55 Respiratory 15 16 15 Rate Blood Pressure 149/72 140/77 142/69 (mmHg) O2 Sat by Pulse 94 98 95 Oximetry 02/14/19 02/14/19 02/14/19 02:02 02:16 02:31 Temperature Pulse Rate 54 53 53 Respiratory 16 16 15 Rate Blood Pressure 148/67 141/67 (mmHg) O2 Sat by Pulse 95 98 98 Oximetry 02/14/19 02/14/19 02/14/19 02:45 03:00 03:01 Temperature Pulse Rate 54 53 53 Respiratory 19 23 14 Rate Blood Pressure 159/87 158/75 (mmHg) O2 Sat by Pulse 97 99 98 Oximetry 02/14/19 02/14/19 02/14/19 03:15 03:29 03:31 Temperature Pulse Rate 63 61 50 Respiratory 22 22 16 Rate Blood Pressure 158/100 155/90 152/84 (mmHg) O2 Sat by Pulse 91 89 92 Oximetry 02/14/19 02/14/19 02/14/19 03:45 03:50 04:00 Temperature 98 F Pulse Rate 57 Respiratory 21 15 Rate Blood Pressure 179/80 (mmHg) O2 Sat by Pulse 89 Oximetry 02/14/19 02/14/19 02/14/19 04:01 04:15 04:31 Temperature Pulse Rate 52 70 59 Respiratory 17 8 15 Rate Blood Pressure 146/83 160/96 152/76 (mmHg) O2 Sat by Pulse 94 98 96 Oximetry 02/14/19 02/14/19 02/14/19 04:46 05:00 05:01 Temperature Pulse Rate 56 54 55 Respiratory 15 16 15 Rate Blood Pressure 149/72 145/69 (mmHg) O2 Sat by Pulse 96 97 97 Oximetry 02/14/19 02/14/19 02/14/19 05:16 05:38 05:46 Temperature Pulse Rate 57 52 53 Respiratory 21 25 19 Rate Blood Pressure 149/98 118/75 155/74 (mmHg) O2 Sat by Pulse 94 89 97 Oximetry 02/14/19 02/14/19 02/14/19 05:58 06:00 06:01 Temperature Pulse Rate 49 51 Respiratory 20 19 21 Rate Blood Pressure 155/80 (mmHg) O2 Sat by Pulse 94 95 Oximetry 02/14/19 02/14/19 02/14/19 07:19 07:48 07:58 Temperature 98.4 F Pulse Rate 77 Respiratory 22 22 Rate Blood Pressure (mmHg) O2 Sat by Pulse 90 Oximetry Oxygen Devices in Use Now: Nasal Cannula - 6 liters Appearance: Elderly lady with disheveled appearance sitting up in bed in [facility]. Eyes: No Scleral Icterus Ears/Nose/Mouth/Throat: Mucous Membranes Moist Neck: Trachea Midline Respiratory: Symmetrical Chest Expansion and Respiratory Effort, - - BS+ bilaterally with scattered wheezes Cardiovascular: RRR - Normal S1 and S2 Abdominal: NL Sounds; No Tenderness; No Distention Extremities: No Edema Neurological: Alert and Oriented x 3, - - MONET Result Diagrams: 02/14/19 05:25 02/14/19 05:25 Microbiology and Other Data: Microbiology 02/13/19 05:38 Aerobic Blood Culture - Preliminary Blood Venous No Growth Day 1 Anaerobic Blood Culture - Preliminary No Growth Day 1 02/13/19 05:01 Aerobic Blood Culture - Preliminary Blood Venous No Growth Day 1 Anaerobic Blood Culture - Preliminary No Growth Day 1 02/13/19 09:20 Nasal Screen MRSA (PCR) - Final Nasal Mrsa Not Detected Assess/Plan/Problems-Billing Assessment: Mrs Regalado is a 73yo F with PMH of chronic hypoxemic respiratory failure secondary to severe COPD, on home O2 at 3 liter; PAF, depression, restless leg syndrome, hypothyroidism, CAD, HTN, HLD, type 2 DM, diastolic CHF, seizure disorder, chronic back pain, GERD, PVD, gout, critical s/p TAVR, CVA, who presented to ED with c/o dyspnea, found to have COPD exacerbation secondary to bronchitis. - Patient Problems (1) Acute and chronic respiratory failure with hypoxia Comment: - Secondary to COPD exacerbation. - Improved, released from Vapotherm, but still requires 6 liters of supplemental O2 (baseline is 3 liters). (2) COPD (chronic obstructive pulmonary disease) Comment: - With acute exacerbation secondary to bronchitis. - Continue steroids, antibiotics, and bornchodilators. (3) Diabetes Comment: - Controlled. - Continue FS with Lispro SS. (4) Restless leg syndrome Comment: - This seems to be her major issue in conjunction with diabetic peripheral neuropathy. - Continue Mirapex and Lyrica. - (5) HTN (hypertension) Comment: - Controlled - continue HCTZ, metoprolol succinate, amlodipine with holding parameters. (6) Paroxysmal atrial fibrillation Comment: - Remains in NSR. - Continue Metoprolol and Apixaban. (7) DVT prophylaxis Comment: - Apixaban. (8) Full code status
--- NOTE | 2019-02-14 11:16 | PN ---
Hospitalist Progress Note Date of Service: 02/14/19 HOSPITALIST ADDENDUM Called by RN around 11:15AM on arrival from ICU to floor because patient had HR in the 30s and was lethargic. Immediately evaluated at bedside. Patient was sleeping, but easily arousable, not any different from when I had seen her in the morning. Pulse by palpation was irregular, around 70s. EKG performed revealed bigeminy with HR of 76. BP 105/60, good perfusion, extremities are warm, mental status unchanged. Will place Telemetry and continue to monitor.
[2019-02-14] MEDS: Azithromycin 500 mg/250 ml NS 500 MG/250 ML BAG IVPB SCH (12:56)
[2019-02-14] MEDS ORDERED: guaiFENesin LIQ* 100 MG/5 ML UDC PO PRN (16:38)
[2019-02-14] MEDS: Cetirizine* 10 MG TAB PO SCH (22:10)
[2019-02-14] MEDS: Atorvastatin* 40 MG TAB PO SCH (22:11)
[2019-02-14] MEDS: Nicotine Patch Removal NOTE FOLLOW UP SCH (22:15)
[2019-02-15] MEDS: oxyCODONE/Acetamin 5/325 MG* TAB PO PRN ×5 (01:24→22:50)
[2019-02-15] MEDS: methylPREDNISolone SOD 40 MG* 1 ML VIAL IV SCH ×2 (05:14→17:25)
[2019-02-15] MEDS: Insulin LISPRO* 1 UNITS UNIT SUBCUT SCH ×4 (07:28→20:43)
[2019-02-15] MEDS: Mometasone/Formoter 200/5 MDI INH SCH ×2 (07:55→19:37)
[2019-02-15] MEDS: SPIRIVA Respimat* (tiotropium) 2.5 mcg/inh Inhaler INH SCH (07:55)
--- NOTE | 2019-02-15 07:58 | PN ---
Progress Note - Progress Note Date of Service: 02/15/19 Note: Called to see patient urgently as she was noted to be tachypnic in the high 20' s and have an O2 saturation of 83-86% on 15L oxymask. The patient is anxious she also complains of pain in her legs. She notes she feels dizzy but clarifies that to feeling lightheaded. She also c/o chest pain. Breath sounds are clear ( no wheeze or crackles) but markedly diminished throughout. She does not sound tight. She is "allergic" to morphine. Will transfer to the ICU for either vapotherm or BiPAP to help with her acute on chronic hypoxia and work of breathing. Continue current regimen of solumedrol, Abx and start albuterol nebs q4hr standing while awake. Portable CXR and EKG ordered on transfer to the ICU.
[2019-02-15] MEDS ORDERED: Albuterol 2.5 MG/3 ML NEB.SOL* (0.083%) INH ONE (08:12)
[2019-02-15] MEDS: Albuterol 2.5 MG/3 ML NEB.SOL* (0.083%) INH SCH ×5 (08:15→23:17)
[2019-02-15] MEDS: Pramipexole TAB* 0.5 MG PO SCH ×2 (08:24→20:45)
[2019-02-15] MEDS: Apixaban* 5 MG TAB PO SCH ×2 (08:35→20:44)
[2019-02-15] MEDS: Magnesium Oxide TAB* 400 MG PO SCH (08:35)
[2019-02-15] MEDS: Metoprolol Succinate XL TAB* 25 MG PO SCH (08:35)
[2019-02-15] MEDS: Diazepam TAB(*) 5 MG PO SCH ×2 (08:35→20:44)
[2019-02-15] MEDS: Hydrochlorothiazide TAB* 25 MG PO SCH (08:35)
[2019-02-15] MEDS: Pregabalin CAP(*) 100 MG PO SCH ×3 (08:35→20:45)
[2019-02-15] MEDS: Nicotine PATCH 21 MG/24 HR* PATCH TRANSDERM SCH (08:35)
[2019-02-15] MEDS: amLODIPine TAB* 5 MG PO SCH (08:35)
--- NOTE | 2019-02-15 08:50 | PN ---
Subjective Date of Service: 02/15/19 Interval History: HOSPITALIST PROGRESS NOTE Patient seen and examined at bedside. Care reviewed and d/w Gardenia Tran RN. She had sudden onset of chest pain and worsening dyspnea earlier today, and was transferred back to ICU. At the time of my evaluation, she denied chest pain, but her major complaint was her bilateral legs pain and restless leg syndrome. Family History: Unchanged from Admission Social History: Unchanged from Admission Past Medical History: Unchanged from Admission Objective Active Medications: Acetaminophen (Tylenol Tab*) 650 mg PO Q6H PRN PRN Reason: PAIN - MILD Last Admin: 02/13/19 18:19 Dose: 650 mg Albuterol (Ventolin Hfa Inhaler*) 2 puff INH Q4H PRN PRN Reason: SOB/WHEEZING Albuterol (Ventolin 2.5 Mg/3 Ml Neb.Marjorie*) 2.5 mg INH [id number] AWAKE [facility] Last Admin: 02/15/19 08:15 Dose: 2.5 mg Amlodipine Besylate (Norvasc Tab*) 10 mg PO DAILY [facility] Last Admin: 02/15/19 08:35 Dose: 10 mg Apixaban (Eliquis*) 5 mg PO BID [facility] Last Admin: 02/15/19 08:35 Dose: 5 mg Atorvastatin Calcium (Lipitor*) 40 mg PO 2100 [facility] Last Admin: 02/14/19 22:11 Dose: 40 mg Cetirizine HCl (Zyrtec*) 10 mg PO BEDTIME [facility] Last Admin: 02/14/19 22:10 Dose: 10 mg Dextrose (Dextrose 50% Vial 50 Ml*) 25 ml IV PUSH .FOR FS < 60 - SS PRN PRN Reason: FS < 60 Diazepam (Valium Tab(*)) 5 mg PO BID [facility] Last Admin: 02/15/19 08:35 Dose: 5 mg Diphenhydramine HCl (Benadryl Po*) 25 mg PO DAILY PRN PRN Reason: ITCHING Fluticasone Propionate (Flonase Nasal [place] 50mcg*) 1 spray BOTH NARES DAILY [facility] Last Admin: 02/14/19 08:04 Dose: 1 spray Guaifenesin (Robitussin*) 5 ml PO Q4H PRN PRN Reason: COUGH Last Admin: 02/14/19 17:27 Dose: 5 ml Hydrochlorothiazide (Hydrodiuril Tab*) 25 mg PO DAILY [facility] Last Admin: 02/15/19 08:35 Dose: 25 mg Azithromycin (Zithromax 500 Mg/250 Ml) 500 mg in 250 mls @ 250 mls/hr IVPB Q24H [facility] Last Admin: 02/14/19 12:56 Dose: Not Given Insulin Human Lispro (Humalog*) 0 units SUBCUT ACHS [facility]; Protocol Last Admin: 02/15/19 07:28 Dose: Not Given Magnesium Oxide (Magox 400 Tab*) 400 mg PO DAILY [facility] Last Admin: 02/15/19 08:35 Dose: 400 mg Methylprednisolone Sodium Succinate (Solu-Medrol 40 Mg) 40 mg IV Q12H [facility] Last Admin: 02/15/19 05:14 Dose: 40 mg Metoprolol Succinate (Toprol Xl Tab*) 25 mg PO DAILY [facility] Last Admin: 02/15/19 08:35 Dose: 25 mg Mometasone Furoate/Formoterol Fumar (Dulera 200/5 Mdi*) 2 puff INH BID [facility]; Protocol Last Admin: 02/15/19 07:55 Dose: Not Given Nicotine (Nicotine Patch 21 Mg/24 Hr*) 1 patch TRANSDERM DAILY [facility] Last Admin: 02/15/19 08:35 Dose: 1 patch Nicotine Polacrilex (Nicotine Gum*) 4 mg PO Q2H PRN PRN Reason: CRAVING Nitroglycerin (Nitroglycerin Tab 0.4 Mg*) 0.4 mg SL Q5M PRN PRN Reason: chest pain Oxycodone/Acetaminophen (Percocet 5/325 Tab*) 1 tab PO Q4H PRN PRN Reason: PAIN - SEVERE Last Admin: 02/15/19 07:47 Dose: 1 tab Pharmacy Profile Note (Nicotine Patch Removal Note*) 1 note FOLLOW UP 2100 [facility] Last Admin: 02/14/19 22:15 Dose: Not Given Pramipexole Dihydrochloride (Mirapex Tab*) 1 mg PO BID [facility] Last Admin: 02/15/19 08:24 Dose: 1 mg Pregabalin (Lyrica Cap(*)) 200 mg PO TID [facility] Last Admin: 02/15/19 08:35 Dose: 200 mg Tiotropium [place] (Spiriva Respimat 2.5 Mcg) 2 puff INH DAILY [facility] Last Admin: 02/15/19 07:55 Dose: Not Given Vital Signs - 8 hr 02/15/19 02/15/19 02/15/19 01:24 03:11 04:04 Temperature 97.9 F Pulse Rate 55 Respiratory 24 20 16 Rate Blood Pressure 128/48 (mmHg) O2 Sat by Pulse 93 Oximetry 02/15/19 02/15/19 02/15/19 07:15 07:30 07:47 Temperature 98.1 F Pulse Rate 70 Respiratory 26 28 28 Rate Blood Pressure 168/75 (mmHg) O2 Sat by Pulse 88 Oximetry 02/15/19 02/15/19 02/15/19 08:03 08:16 08:35 Temperature 98.9 F Pulse Rate 82 76 Respiratory 27 25 23 Rate Blood Pressure 171/104 (mmHg) O2 Sat by Pulse 77 89 Oximetry Oxygen Devices in Use Now: High Flow Heated Nasal Cannula - 40 liters FiO2 100% Appearance: Elderly lady lying in bed in NAD, but uncomfortable due to leg pain Eyes: No Scleral Icterus Ears/Nose/Mouth/Throat: Mucous Membranes Moist Neck: Trachea Midline Respiratory: Symmetrical Chest Expansion and Respiratory Effort, - - BS+ bilaterally with scattered rhonchi, diminished with bases Cardiovascular: RRR - Normal S1 and S2 Abdominal: NL Sounds; No Tenderness; No Distention - obese Extremities: No Edema, - - No calf tenderness Neurological: Alert and Oriented x 3, NL Muscle Strength and Tone Result Diagrams: 02/15/19 09:05 02/15/19 09:05 Assess/Plan/Problems-Billing Assessment: Mrs Regalado is a 73yo F with PMH of chronic hypoxemic respiratory failure secondary to severe COPD, on home O2 at 3 liter; PAF, depression, restless leg syndrome, hypothyroidism, CAD, HTN, HLD, type 2 DM, diastolic CHF, seizure disorder, chronic back pain, GERD, PVD, gout, critical s/p TAVR, CVA, who presented to ED with c/o dyspnea, found to have COPD exacerbation secondary to bronchitis. - Patient Problems (1) Acute and chronic respiratory failure with hypoxia Comment: - Secondary to COPD exacerbation. - Back to ICU this AM, requiring Vapotherm again (baseline is 3 liters). I believe her sudden decompensation this AM is secondary to anxiety associated with pain in a patient with no pulmonary reserve. (2) Chest pain Comment: - Resolved. - EKG shows bigeminy with no acute ischemic changes, troponins are negative x 2. - Check CTA chest/LE doppler to r/o PE/DVT. (3) COPD (chronic obstructive pulmonary disease) Comment: - With acute exacerbation secondary to bronchitis. - Continue steroids, antibiotics, and bronchodilators. (4) Diabetes Comment: - Controlled. - Continue FS with Lispro SS. (5) Restless leg syndrome Comment: - This seems to be her major issue in conjunction with diabetic peripheral neuropathy. - Continue Mirapex and Lyrica. - Neurological consult requested - she seems to have neurologic claudication. Lumbar spine MRI showed OA, but no significant stenosis. (6) HTN (hypertension) Comment: - Controlled - continue HCTZ, metoprolol succinate, amlodipine with holding parameters. (7) Paroxysmal atrial fibrillation Comment: - Remains in NSR. - Continue Metoprolol and Apixaban. (8) DVT prophylaxis Comment: - Apixaban. (9) Full code status Status and Disposition: Inpatient.
[2019-02-15 09:21] LABS: ABS Lymphocytes 0.9 10^3/ul (1.0-4.8); ABS Monocytes 0.1 10^3/ul (0-0.8); ABS Neutrophils 6.9 10^3/ul (1.5-7.7); Hematocrit 40 % (35-47); Hemoglobin 13.5 g/dL (12.0-16.0); Lymphocyte % 10.8 %; Mean Corpuscular HGB Conc 34 g/dL (31-36); Mean Corpuscular Hemoglobin 32 pg (27-31); Mean Corpuscular Volume 95 fL (80-97); Mean Platelet Volume 8.6 fL (7.4-10.4); Platelet Count 170 10^3/uL (150-450); Red Blood Count 4.18 10^6 /uL (3.70-4.87); Red Cell Distribution Width 14 % (10-15); White Blood Count 7.9 10^3/uL (3.5-10.8)
[2019-02-15] MEDS ORDERED: Iodixanol* (CONTRAST) 320 MG/ML 100 ML SDV IV ONE (09:30)
[2019-02-15 09:49] LABS: Albumin 4.1 g/dL (3.2-5.2); Albumin/Globulin Ratio 1.6 (1-3); BUN/Creatinine Ratio 43.6 (8-20); Calcium 9.6 mg/dL (8.6-10.3); EGFR African American 88.1 (>60); EGFR Non-African American 72.8 (>60); Globulin 2.5 g/dL (2-4); Magnesium 1.9 mg/dL (1.9-2.7); Potassium 4.1 mmol/L (3.5-5.0); Total Bilirubin 0.7 mg/dL (0.2-1.0); Total Protein 6.6 g/dL (6.4-8.9)
[2019-02-15 09:50] LABS: Troponin I 0.01 ng/mL (<0.04)
[2019-02-15] MEDS: Azithromycin 500 mg/250 ml NS 500 MG/250 ML BAG IVPB SCH (10:44)
[2019-02-15] MEDS: Fluticasone NASAL SPRAY 50MCG* 16 gm SPRAY BTL BOTH NARES SCH (10:57)
--- NOTE | 2019-02-15 14:04 | CONS ---
CC: Dr. Lidia Marrero * CONSULTATION REPORT: DATE OF CONSULT: 02/15/19 LOCATION: Currently, she is in the ICU, bed 10. PRIMARY CARE PROVIDER: Dr. Lidia Marrero. REASON FOR CONSULT: Lower extremity pain. HISTORY OF PRESENT ILLNESS: Ms. Regalado is a 73-year-old female who I had actually seen in my clinic in the past. In addition, she has been seen by one of our nurse practitioners in the distant past regarding shaking spells when she was in severe pain. At that time in 2014, she noted pain and numbness in her back, legs, and feet. She has a history of significant restless legs syndrome, a history of some possible tardive dyskinesia related to past use of Haldol, a history of severe lower extremity pain and back pain as well. She also has had a stroke with residual left-sided weakness. I saw her last on . At that time, she had recently been admitted to the hospital in July of 2017 and was complaining of right face, arm, and leg numbness and right arm weakness. The symptoms resolved and the workup showed no evidence of acute DWI or ADC map changes. At that time, tPA was not given. I also noted that she has a history of chronic low back pain causing numbness on her right side at that time. She also noted at that time she was having weakness and some falls. I felt then that it was most likely that she was suffering from the post effect stroke as well as significant lower back pain and restless legs as well as some neuropathy and at that time started her on gabapentin 300 mg 3 times a day with a plan to titrate her up slowly. At that time, she was on fentanyl 25 mcg per hour patch for her chronic pain, but notes recently that she was not getting her pain medication from her primary care provider anymore. She also has a history of COPD with chronic respiratory failure and is on continuous oxygen. She has a history of AFib, on Eliquis; hypothyroidism. She has had a heart attack in the past. She has type 2 diabetes, diastolic dysfunction, reported seizure history, hyperlipidemia, and she is a very poor historian. I did speak with Dr. Maloney, who states that she apparently left her prior long-term because she could not smoke, and at this point, she really does not have a place to go, but she refuses to smoke. Approximately 1 week ago , she developed shortness of breath which progressed. She needed more oxygen and eventually came to the hospital. She was admitted previously from 12/07/18 until 12/20/18 with COPD exacerbation and pneumonia, but did fairly well. Psychiatry did evaluate her for capacity. She was deemed not to have capacity initially, but reevaluated on 12/18/18 and found to have capacity. Per review of her prior records, it notes that she also had herpes zoster in the buttocks region. I was consulted today because the patient continues to complain of significant lower extremity pain. In fact, she was transferred to the floor yesterday, but states that the pain was so bad she became more agitated and anxious and became more short of breath and was transferred back to the ICU for closer monitoring. She notes a long history of low back pain dating back years. She notes that her leg pain worsens when she walks and slowly improves when she sits down. She does note some bladder dysfunction, but she states this is related to her prior stroke. She notes weakness in both legs, although she endorses more weakness in the left leg secondary to her stroke. She has fallen multiple times. Denies any significant head trauma. She notes that the pain in her legs is circumferential and goes from the toes up to her hips. She also has pain at times that radiates down her legs from her back. Her back pain is chronic and constant in nature, and she states that the only thing that has helped her back pain has been narcotic medications, which she was previously getting. In addition, she states that that is the only thing that helped her legs as well. I had previously put her on gabapentin, but she did not respond to this. She subsequently was put on Lyrica and is currently on high dose 600 mg a day, but she states that it is not helping. It was my hope that the gabapentin would help not only with her neuropathy, but also her restless legs. She was tried on Requip in the past, but states that it did not help. Currently, she is on Mirapex 1 mg p.o. b.i.d. PAST MEDICAL HISTORY: As noted above. PAST SURGICAL HISTORY: She also has a history of aortic stenosis, status post TAVR; carpal tunnel surgery in the past; cholecystectomy; hysterectomy. MEDICATIONS: Medication list currently is extensive. She is on: 1. Tylenol p.r.n. 2. Albuterol p.r.n. 3. Albuterol nebs. 4. Norvasc 10 mg daily. 5. Eliquis 5 mg p.o. b.i.d. 6. Lipitor 40 mg at bedtime. 7. Zithromax. 8. She is on Zyrtec as well. 9. She is on Valium 5 mg p.o. b.i.d. 10. Benadryl 25 mg p.o. daily p.r.n. for itching. 11. Flonase nasal spray. 12. Robitussin. 13. Hydrochlorothiazide 25 mg daily. 14. Insulin sliding scale. 15. Magnesium oxide 400 mg daily. 16. She is on steroids 40 mg IV q.12 hours with methylprednisolone. 17. Metoprolol 25 mg daily. 18. Dulera b.i.d. 19. Nicotine patch. 20. Nicotine gum. 21. Nitroglycerin p.r.n. 22. Percocet 5/325 q.4 hours p.r.n. 23. Pramipexole 1 mg p.o. b.i.d. 24. Lyrica 200 mg p.o. t.i.d. 25. Spiriva inhaler. ALLERGIES: Her allergies are extensive and include ASPIRIN, CEPHALOSPORINS, KETOROLAC, CARBAPENEM, MORPHINE, PENICILLIN, BACTRIM. FAMILY HISTORY: The patient is a poor historian, but notes that there is congestive heart failure in her family as well as coronary artery disease. SOCIAL HISTORY: Heavy smoker with occasional alcohol use. She denied any drug use. Her living situation is tenuous at this point. REVIEW OF SYSTEMS: Review of systems in 14-organ systems as noted above. She also complains of shortness of breath with any movement and at rest, cough. No abdominal pain, nausea, or vomiting. No dysuria, frequency, urgency at this time. She does have diffuse musculoskeletal aches and pains. Denies any headache, vision changes. She does have chronic swallowing issues related to her prior stroke. Her review of systems is otherwise negative. PHYSICAL EXAM: In general, she is a disheveled, well-developed female, currently in no acute distress, lying in the hospital bed with oxygen on. Heart rate is in the 70s currently, respiratory rate 19 to 20, O2 saturation 98 % to 99% on oxygen, blood pressure 143/82 to 139/77. In general, she is a well- nourished, well- developed, disheveled female, in no acute distress. She is anxious. Her skin, she has an ulcer on the right lip. Skin is otherwise warm and dry. Chest is clear to auscultation bilaterally with distant breath sounds. Cardiovascular is irregularly irregular. Abdomen is obese, nontender. Extremities: There is 1+ edema in the lower extremities bilaterally. Skin is warm and very dry. On neurologic examination, she is awake, alert, and oriented x3. Her speech is fluent with some moderate dysarthria. Her recall is somewhat impaired. She is a very poor historian and gives me conflicting information at times. Her pupils were equal, round, and reactive to light. Extraocular muscles are intact. Visual nelson are full to confrontation. No nystagmus appreciated. No ptosis appreciated. Her facial sensation is intact. She has a left lower facial droop. Hearing is intact bilaterally. Palate raises symmetrically. Tongue is midline. Motor exam was difficult. She does move her right and left arms and legs antigravity, but has very poor effort. She has drift in the left upper and lower extremities and appears generally weak 4 to 4+ out of 5 throughout, but again difficult examination with poor compliance. Tone seems to be slightly increased in the left upper extremity. DTRs were 2+ at the left biceps, triceps, brachioradialis; 2+ at the left patella; trace at the right patella; absent at the ankles bilaterally; 1+ at the right biceps, triceps, brachioradialis. [id number] and rapid alternating movements are slow, but intact. There is no resting tremor. There is no evidence of tardive dyskinesia at this time. Sensation in the upper extremities is grossly intact to light touch and pinprick in her arms throughout. She has no radicular symptoms. In the lower extremities, she has loss of all modalities light touch, pinprick, vibration, proprioception in the feet to the mid thighs, circumferential in nature and not necessarily dermatomal. She also has significant back pain at rest. Difficult to do a straight leg exam. I could not ambulate her at this time as she feels too weak. DIAGNOSTIC STUDIES/LAB DATA: She has had multiple studies done including a chest and thorax CT angiogram which showed atelectasis of the left lower lobe, partial atelectasis of the right lower lobe with inflammatory infiltrate at the atelectatic lung bases not excluded. Negative for pleural effusions. Negative for pulmonary embolism. Consider nonemergent left renal ultrasound to further assess the mild hypodense, probable complex cortical cyst, low suspicion given compared with a CT from 01/29/18. In addition, she has had an MRI of her lumbar spine in the past. On 12/17/17, she had a lumbar spine which showed scoliosis, degenerative disk disease, multilevel neural foraminal narrowing which is [id number] at various levels bilaterally. She also has no major central canal stenosis or narrowing and no abnormal enhancement. MRI of the thoracic spine done on 12/16/17 showed limited study, mild-to- moderate dorsal and moderate lumbar spondylitic changes. She had a brain MRI done on 12/17/17 which showed elevated T2/FLAIR signals in the periventricular subcortical and pontine white matter, appearance suggestive of chronic small vessel disease. No restricted diffusion at that time. She had a head CTA on 01/29/18 which showed no acute intracranial pathology. No aneurysm, vascular malformations, occlusions, or stenosis of the visualized intracranial circulation. No internal carotid artery stenosis. Lab work includes CBC with diff with MCH of 32, absolute lymphocyte count of 0.9. Chemistry showed a BUN of 34, creatinine of 0.78, BUN/creatinine ratio of 43.6, glucose of 164. Prior B12 on 08/27/18 is 244. Homocysteine in 2018 of 10. TSH of 2.10 in November of 2018. Free T4 of 0.59 in January of 2018. CRP from 12/06/18 of 12.73. Previous rheumatoid factor in 2016 was negative. Lyme disease serology in 2017 was negative. ASSESSMENT AND PLAN: Ms. Regalado is a 73-year-old female with an extensive medical history, prior stroke, history of restless legs and lower extremity pain , what sounds like neurogenic claudication, although prior MRI of the lumbar spine showed no obvious stenosis, no clear-cut evidence of a vascular claudication as well. She presents with worsening lower extremity pain, sensory symptoms that are nondermatomal in nature and are in a stocking distribution in the legs up to the mid thigh causing significant disability and pain. She also has restless legs symptoms, which she states are intermittent and are troublesome, but not her main issue. She was admitted with chronic obstructive pulmonary disease exacerbation and due to the pain in her legs has had worsening anxiety, which has worsened her breathing and chronic obstructive pulmonary disease. I was asked to see the patient for her lower extremity pain. I have evaluated the patient in the past. It appears on examination that she is suffering from a chronic debilitating lower extremity sensorimotor polyneuropathy most likely caused by her diabetes, but I am going to check some additional labs to look for other causes, although my suspicion is low. She has been on gabapentin in the past and failed. She is now on Lyrica high dose. She is on multiple medications. Given her cardiac abnormalities, I do not think that either amitriptyline or nortriptyline is appropriate. I worry given her polypharmacy about using Tegretol or Depakote given the possibility of some noncompliance as well as the interactions that these medications can have. She apparently has seen Pain Management in the past and at one point was to have caudal injections, but I do not know where she is with this at this time. Certainly, given the longstanding nature of her symptoms, chronic pain management is appropriate. I think for the short-term treating her with some mild narcotic medication seems to help and is appropriate. She is requesting this and I worry about the possibility long-term of narcotic abuse, especially if her social situation is tenuous. Unless she is properly supervised, this is likely not a good long-term strategy. I would agree with possible injections in the future and the plan is to get an MRI of her lumbar spine to look for any spinal causes of her symptoms such as neurogenic claudication given the fact that her symptoms do worsen with walking and improve with sitting. With that said, the distribution of this is very consistent with a peripheral neuropathy. Unfortunately, we are very limited in what we can use to treat. The plan is to treat with some low dose narcotics for now. We will get the MRI and I will follow up after that. I would recommend mobilizing her as much as possible, treating her anxiety p.r.n., and I defer management of her other medical conditions at this time to her primary team. I will continue to follow her and make further recommendations. Thank you for the opportunity to participate in the care of this very interesting patient. [id number]/[facility] #: [id number] MTDD
[2019-02-15 15:15] LABS: Free T4 0.57 ng/dL (0.61-1.12)
[2019-02-15] MEDS ORDERED: LORazepam TAB(*) 0.5 MG PO ONE (17:44)
[2019-02-15] MEDS: Cetirizine* 10 MG TAB PO SCH (20:46)
[2019-02-15] MEDS: Atorvastatin* 40 MG TAB PO SCH (20:46)
[2019-02-15] MEDS: Nicotine Patch Removal NOTE FOLLOW UP SCH (22:38)
[2019-02-16] MEDS: oxyCODONE/Acetamin 5/325 MG* TAB PO PRN ×5 (02:27→21:11)
[2019-02-16] MEDS: Albuterol 2.5 MG/3 ML NEB.SOL* (0.083%) INH SCH ×6 (04:22→23:00)
[2019-02-16] MEDS: methylPREDNISolone SOD 40 MG* 1 ML VIAL IV SCH ×2 (06:00→17:34)
[2019-02-16] MEDS: SPIRIVA Respimat* (tiotropium) 2.5 mcg/inh Inhaler INH SCH (07:57)
[2019-02-16] MEDS: Mometasone/Formoter 200/5 MDI INH SCH ×2 (07:57→19:30)
[2019-02-16] MEDS: Pregabalin CAP(*) 100 MG PO SCH ×3 (08:26→21:11)
[2019-02-16] MEDS: Magnesium Oxide TAB* 400 MG PO SCH (08:26)
[2019-02-16] MEDS: Diazepam TAB(*) 5 MG PO SCH ×2 (08:26→21:11)
[2019-02-16] MEDS: amLODIPine TAB* 5 MG PO SCH (08:27)
[2019-02-16] MEDS: Apixaban* 5 MG TAB PO SCH ×2 (08:27→21:11)
[2019-02-16] MEDS: Hydrochlorothiazide TAB* 25 MG PO SCH (08:27)
[2019-02-16] MEDS: Insulin LISPRO* 1 UNITS UNIT SUBCUT SCH ×4 (08:28→22:13)
[2019-02-16] MEDS: Metoprolol Succinate XL TAB* 25 MG PO SCH (08:28)
[2019-02-16] MEDS: Nicotine PATCH 21 MG/24 HR* PATCH TRANSDERM SCH (08:31)
[2019-02-16] MEDS: Azithromycin 500 mg/250 ml NS 500 MG/250 ML BAG IVPB SCH (08:31)
--- NOTE | 2019-02-16 09:42 | PN ---
Subjective Date of Service: 02/16/19 Length of Stay: 3 Days Interval History: She is much better this am. Sitting in a chair, eating breakfast, pleasant. " I am not hurting at all." She is now down on 7L and tolerating it. No new issues overnight. MRI LS Spine: Impression: DDD, L1-2 interval worsening of left foraminal stenosis. At L2-3 moderate aquired central stenosis with interval worsening. Films reviewed Family History: Unchanged from Admission Social History: Unchanged from Admission Past Medical History: Unchanged from Admission Objective Active Medications: Acetaminophen (Tylenol Tab*) 650 mg PO Q6H PRN PRN Reason: PAIN - MILD Last Admin: 02/13/19 18:19 Dose: 650 mg Albuterol (Ventolin Hfa Inhaler*) 2 puff INH Q4H PRN PRN Reason: SOB/WHEEZING Albuterol (Ventolin 2.5 Mg/3 Ml Neb.Marjorie*) 2.5 mg INH [id number] AWAKE [facility] [place] Last Admin: 02/16/19 07:56 Dose: 2.5 mg Amlodipine Besylate (Norvasc Tab*) 10 mg PO DAILY [facility] [place] Last Admin: 02/16/19 08:27 Dose: 10 mg Apixaban (Eliquis*) 5 mg PO BID [facility] [place] Last Admin: 02/16/19 08:27 Dose: 5 mg Atorvastatin Calcium (Lipitor*) 40 mg PO 2100 [facility] [place] Last Admin: 02/15/19 20:46 Dose: 40 mg Cetirizine HCl (Zyrtec*) 10 mg PO BEDTIME [facility] [place] Last Admin: 02/15/19 20:46 Dose: 10 mg Dextrose (Dextrose 50% Vial 50 Ml*) 25 ml IV PUSH .FOR FS < 60 - SS PRN PRN Reason: FS < 60 Diazepam (Valium Tab(*)) 10 mg PO BID [facility] [place] Last Admin: 02/16/19 08:26 Dose: 10 mg Diphenhydramine HCl (Benadryl Po*) 25 mg PO DAILY PRN PRN Reason: ITCHING Last Admin: 02/16/19 06:56 Dose: 25 mg Fluticasone Propionate (Flonase Nasal [place] 50mcg*) 1 spray BOTH NARES DAILY [facility] [place] Last Admin: 02/15/19 10:57 Dose: Not Given Guaifenesin (Robitussin*) 5 ml PO Q4H PRN PRN Reason: COUGH Last Admin: 02/14/19 17:27 Dose: 5 ml Hydrochlorothiazide (Hydrodiuril Tab*) 25 mg PO DAILY [facility] [place] Last Admin: 02/16/19 08:27 Dose: 25 mg Azithromycin (Zithromax 500 Mg/250 Ml) 500 mg in 250 mls @ 250 mls/hr IVPB Q24H [facility] [place] Last Admin: 02/16/19 08:31 Dose: 250 mls/hr Insulin Human Lispro (Humalog*) 0 units SUBCUT ACHS [facility] [place]; Protocol Last Admin: 02/16/19 08:28 Dose: 1 units Magnesium Oxide (Magox 400 Tab*) 400 mg PO DAILY [facility] [place] Last Admin: 02/16/19 08:26 Dose: 400 mg Methylprednisolone Sodium Succinate (Solu-Medrol 40 Mg) 40 mg IV Q12H [facility] [place] Last Admin: 02/16/19 06:00 Dose: 40 mg Metoprolol Succinate (Toprol Xl Tab*) 25 mg PO DAILY [facility] [place] Last Admin: 02/16/19 08:28 Dose: 25 mg Mometasone Furoate/Formoterol Fumar (Dulera 200/5 Mdi*) 2 puff INH BID [facility] [place]; Protocol Last Admin: 02/16/19 07:57 Dose: 2 puff Nicotine (Nicotine Patch 21 Mg/24 Hr*) 1 patch TRANSDERM DAILY [facility] [place] Last Admin: 02/16/19 08:31 Dose: 1 patch Nicotine Polacrilex (Nicotine Gum*) 4 mg PO Q2H PRN PRN Reason: CRAVING Nitroglycerin (Nitroglycerin Tab 0.4 Mg*) 0.4 mg SL Q5M PRN PRN Reason: chest pain Oxycodone/Acetaminophen (Percocet 5/325 Tab*) 2 tab PO Q4H PRN PRN Reason: PAIN - SEVERE Last Admin: 02/16/19 02:27 Dose: 2 tab Oxycodone/Acetaminophen (Percocet 5/325 Tab*) 1 tab PO Q4H PRN PRN Reason: PAIN - MODERATE Last Admin: 02/16/19 06:00 Dose: 1 tab Pharmacy Profile Note (Nicotine Patch Removal Note*) 1 note FOLLOW UP 2100 [facility] [place] Last Admin: 02/15/19 22:38 Dose: Not Given Pramipexole Dihydrochloride (Mirapex Tab*) 1 mg PO BID [facility] [place] Last Admin: 02/15/19 20:45 Dose: 1 mg Pregabalin (Lyrica Cap(*)) 200 mg PO TID [facility] [place] Last Admin: 02/16/19 08:26 Dose: 200 mg Tiotropium [place] (Spiriva Respimat 2.5 Mcg) 2 puff INH DAILY [facility] [place] Last Admin: 02/16/19 07:57 Dose: 2 puff Vital Signs 02/15/19 02/15/19 02/15/19 10:00 10:01 10:23 Temperature Pulse Rate 49 51 Respiratory 20 20 20 Rate Blood Pressure 143/82 (mmHg) O2 Sat by Pulse 99 Oximetry 02/15/19 02/15/19 02/15/19 10:30 12:00 12:54 Temperature 97.9 F Pulse Rate 47 62 Respiratory 19 Rate Blood Pressure 139/77 (mmHg) O2 Sat by Pulse 99 86 Oximetry 02/15/19 02/15/19 02/15/19 13:00 13:01 14:00 Temperature Pulse Rate 57 61 Respiratory 20 20 26 Rate Blood Pressure 162/81 (mmHg) O2 Sat by Pulse 90 92 Oximetry 02/15/19 02/15/19 02/15/19 14:01 15:00 15:01 Temperature Pulse Rate 55 79 90 Respiratory 24 24 18 Rate Blood Pressure 150/95 135/113 (mmHg) O2 Sat by Pulse 86 88 82 Oximetry 02/15/19 02/15/19 02/15/19 15:10 15:25 16:00 Temperature 97.9 F Pulse Rate 74 76 Respiratory 23 23 20 Rate Blood Pressure (mmHg) O2 Sat by Pulse 92 90 Oximetry 02/15/19 02/15/19 02/15/19 16:01 17:00 17:01 Temperature Pulse Rate 104 106 99 Respiratory 20 25 16 Rate Blood Pressure 114/78 131/80 (mmHg) O2 Sat by Pulse 91 82 89 Oximetry 02/15/19 02/15/19 02/15/19 17:56 18:00 18:01 Temperature Pulse Rate Respiratory 31 21 21 Rate Blood Pressure 158/92 (mmHg) O2 Sat by Pulse Oximetry 02/15/19 02/15/19 02/15/19 19:00 19:01 19:38 Temperature Pulse Rate 72 72 Respiratory 24 25 20 Rate Blood Pressure 139/76 (mmHg) O2 Sat by Pulse 88 92 Oximetry 02/15/19 02/15/19 02/15/19 19:39 20:00 20:26 Temperature 97.8 F Pulse Rate 71 65 Respiratory 20 22 Rate Blood Pressure 124/78 (mmHg) O2 Sat by Pulse 94 92 Oximetry 02/15/19 02/15/19 02/15/19 20:44 20:46 21:00 Temperature Pulse Rate 77 Respiratory 22 22 17 Rate Blood Pressure 121/81 (mmHg) O2 Sat by Pulse 94 Oximetry 02/15/19 02/15/19 02/15/19 21:02 22:00 22:50 Temperature Pulse Rate 78 65 Respiratory 18 14 25 Rate Blood Pressure 119/77 (mmHg) O2 Sat by Pulse 92 96 Oximetry 02/15/19 02/15/19 02/15/19 23:00 23:01 23:17 Temperature Pulse Rate 76 75 72 Respiratory 30 23 17 Rate Blood Pressure 151/81 (mmHg) O2 Sat by Pulse 91 94 96 Oximetry 02/15/19 02/16/19 02/16/19 23:21 00:00 00:10 Temperature 97.6 F Pulse Rate 71 90 Respiratory 29 Rate Blood Pressure 115/86 (mmHg) O2 Sat by Pulse 95 97 Oximetry 02/16/19 02/16/19 02/16/19 01:00 01:01 01:02 Temperature Pulse Rate 67 66 Respiratory 19 11 11 Rate Blood Pressure 114/88 (mmHg) O2 Sat by Pulse 96 96 Oximetry 02/16/19 02/16/19 02/16/19 02:00 02:01 02:27 Temperature Pulse Rate 72 89 Respiratory 17 12 26 Rate Blood Pressure 114/73 (mmHg) O2 Sat by Pulse 96 96 Oximetry 02/16/19 02/16/19 02/16/19 03:00 03:01 03:43 Temperature 98.2 F Pulse Rate 54 56 Respiratory 12 16 Rate Blood Pressure 128/87 (mmHg) O2 Sat by Pulse 95 94 Oximetry 02/16/19 02/16/19 02/16/19 04:00 05:00 06:00 Temperature Pulse Rate 49 49 Respiratory 12 11 23 Rate Blood Pressure 127/75 129/73 93/76 (mmHg) O2 Sat by Pulse 100 100 Oximetry 02/16/19 02/16/19 02/16/19 07:00 07:57 08:00 Temperature Pulse Rate 70 Respiratory 21 17 23 Rate Blood Pressure (mmHg) O2 Sat by Pulse 96 Oximetry 02/16/19 02/16/19 08:01 08:26 Temperature Pulse Rate 88 Respiratory 24 22 Rate Blood Pressure 117/93 (mmHg) O2 Sat by Pulse 97 Oximetry Intake and Output Last 24 Hours 02/14/19 02/15/19 02/16/19 02/17/19 06:59 06:59 06:59 06:59 Intake Total 7368 457 6463 0 Output Total 450 0 0 0 Balance 813 036 4805 0 Weight 193 lb 12.581 oz 210 lb 8.663 oz Intake: IV Fluids 30 ABX - AZITHROMYCIN 30 IVPB 272 ABX - AZITHROMYCIN 272 Oral 5795 047 1008 0 Output: Urine 450 0 0 0 Other: Estimated Void Large Large Medium # Voids 1 1 1 Oxygen Devices in Use Now: Nasal Cannula Neurology Exam: General: Well nourished, well developed, disheveled, and in no acute distress HEENT: Normocephalic/atraumatic, sclera anicteric, mucous membranes moist Chest: Clear to auscultation bilaterally Cardiovascular: Irreg irreg Abdomen: Obese Neurological Findings: Awake, alert, and oriented to person, place, and time. Speech: fPoor dentition. Dysarthric Cranial Nerve: PERRL, EOM intact, VFF, no nystagmus, left lower facial droop, hearing intact to finger rub bilaterally, palate elevates symmetrically, tongue midline Motor: Chronic left HP with 4/5 upper and lower extremities weakness and increased tone LUE. 5/5 R side with giveway Sensation: Diminished to all modalities in the feet to mid-thighs. Non-painful No tremors Result Diagrams: 02/15/19 09:05 02/15/19 09:05 Microbiology and Other Data: Microbiology 02/13/19 05:38 Aerobic Blood Culture - Preliminary Blood Venous No Growth Day 1 Anaerobic Blood Culture - Preliminary No Growth Day 1 02/13/19 05:01 Aerobic Blood Culture - Preliminary Blood Venous No Growth Day 1 Anaerobic Blood Culture - Preliminary No Growth Day 1 02/13/19 09:20 Nasal Screen MRSA (PCR) - Final Nasal Mrsa Not Detected Assessment/Plan Ms. Regalado is a 73-year-old female with an extensive medical history, prior stroke, history of restless legs and lower extremity pain, what sounds like neurogenic claudication, although prior MRI of the lumbar spine showed no obvious stenosis, no clear-cut evidence of a vascular claudication as well. She presents with worsening lower extremity pain, sensory symptoms that are non- dermatomal in nature and are in a stocking distribution in the legs up to the mid thigh causing significant disability and pain. She also has restless legs symptoms, which she states are intermittent and are troublesome, but not her main issue. She was admitted with chronic obstructive pulmonary disease exacerbation and due to the pain in her legs has had worsening anxiety, which has worsened her breathing and chronic obstructive pulmonary disease. 1. Neuropathy: She seems to be better on the low dose opioids which may, unfortunately be needed. I would be very hesitant, given age and cardiac issues to start Amitriptyline, I worry about using Depakote or Tegretol given social situation and compliance issues. I would continue Lyrica. She will need close outpatient follow up for further medication adjustment. 2. Claudication: She does have worsening spinal stenosis by MRI. I would recommend PT for her spine and I think she can have outpatient NS evaluation. No myelopathic symptoms on exam to suggest acute issues and her symptoms have been ongoing for years. I would like to see how she responds to PT. Would suggest possible Inpatient Rehab referral given weakness, claudication and history of falls. 3. RLS: This seems to be relatively stable on current regimen 4. Social support: I am very concerned about her social support network. She will need outpatient case manager to help determine discharge plans. If she is to be maintained on controlled substances such as Lyrica and low dose opiods for pain , I would recommend close follow up with Neurology and pain management. 5. Tobacco use: I had a long discussion with her about her smoking and she assures me she will try to stop. I will sign off for now but remain available for any new issues or concerns. Thank you for the opportunity to participate in her care.
[2019-02-16] MEDS ORDERED: Calamine LOTION* 120 ML TOPICAL PRN (09:56)
--- NOTE | 2019-02-16 10:03 | PN ---
Subjective Date of Service: 02/16/19 Interval History: Patient reports she has had ongoing itching which was not relieved by benadryl overnight, but has since resolved this morning. She hasn't ambulated yet today but did transfer from bed to chair. She tells me her breathing was comfortable during this activity as well as at rest. She denies chest pain, abd pain, fever/ chills. She states her productive cough is less frequent, but still with green sputum. Family History: Unchanged from Admission Social History: Unchanged from Admission Past Medical History: Unchanged from Admission Objective Active Medications: Acetaminophen (Tylenol Tab*) 650 mg PO Q6H PRN PRN Reason: PAIN - MILD Last Admin: 02/13/19 18:19 Dose: 650 mg Albuterol (Ventolin Hfa Inhaler*) 2 puff INH Q4H PRN PRN Reason: SOB/WHEEZING Albuterol (Ventolin 2.5 Mg/3 Ml Neb.Marjorie*) 2.5 mg INH [id number] AWAKE [facility] [place] Last Admin: 02/16/19 07:56 Dose: 2.5 mg Amlodipine Besylate (Norvasc Tab*) 10 mg PO DAILY [facility] [place] Last Admin: 02/16/19 08:27 Dose: 10 mg Apixaban (Eliquis*) 5 mg PO BID [facility] [place] Last Admin: 02/16/19 08:27 Dose: 5 mg Atorvastatin Calcium (Lipitor*) 40 mg PO 2100 [facility] [place] Last Admin: 02/15/19 20:46 Dose: 40 mg Calamine (Calamine Lotion*) 1 applic TOPICAL QID PRN PRN Reason: ITCHING Cetirizine HCl (Zyrtec*) 10 mg PO BEDTIME [facility] [place] Last Admin: 02/15/19 20:46 Dose: 10 mg Dextrose (Dextrose 50% Vial 50 Ml*) 25 ml IV PUSH .FOR FS < 60 - SS PRN PRN Reason: FS < 60 Diazepam (Valium Tab(*)) 10 mg PO BID [facility] [place] Last Admin: 02/16/19 08:26 Dose: 10 mg Diphenhydramine HCl (Benadryl Po*) 25 mg PO DAILY PRN PRN Reason: ITCHING Last Admin: 02/16/19 06:56 Dose: 25 mg Fluticasone Propionate (Flonase Nasal [place] 50mcg*) 1 spray BOTH NARES DAILY [facility] [place] Last Admin: 02/15/19 10:57 Dose: Not Given Guaifenesin (Robitussin*) 5 ml PO Q4H PRN PRN Reason: COUGH Last Admin: 02/14/19 17:27 Dose: 5 ml Hydrochlorothiazide (Hydrodiuril Tab*) 25 mg PO DAILY [facility] [place] Last Admin: 02/16/19 08:27 Dose: 25 mg Azithromycin (Zithromax 500 Mg/250 Ml) 500 mg in 250 mls @ 250 mls/hr IVPB Q24H [facility] [place] Last Admin: 02/16/19 08:31 Dose: 250 mls/hr Insulin Human Lispro (Humalog*) 0 units SUBCUT ACHS [facility] [place]; Protocol Last Admin: 02/16/19 08:28 Dose: 1 units Magnesium Oxide (Magox 400 Tab*) 400 mg PO DAILY [facility] [place] Last Admin: 02/16/19 08:26 Dose: 400 mg Methylprednisolone Sodium Succinate (Solu-Medrol 40 Mg) 40 mg IV Q12H [facility] [place] Last Admin: 02/16/19 06:00 Dose: 40 mg Metoprolol Succinate (Toprol Xl Tab*) 25 mg PO DAILY [facility] [place] Last Admin: 02/16/19 08:28 Dose: 25 mg Mometasone Furoate/Formoterol Fumar (Dulera 200/5 Mdi*) 2 puff INH BID [facility] [place]; Protocol Last Admin: 02/16/19 07:57 Dose: 2 puff Nicotine (Nicotine Patch 21 Mg/24 Hr*) 1 patch TRANSDERM DAILY [facility] [place] Last Admin: 02/16/19 08:31 Dose: 1 patch Nicotine Polacrilex (Nicotine Gum*) 4 mg PO Q2H PRN PRN Reason: CRAVING Nitroglycerin (Nitroglycerin Tab 0.4 Mg*) 0.4 mg SL Q5M PRN PRN Reason: chest pain Oxycodone/Acetaminophen (Percocet 5/325 Tab*) 2 tab PO Q4H PRN PRN Reason: PAIN - SEVERE Last Admin: 02/16/19 02:27 Dose: 2 tab Oxycodone/Acetaminophen (Percocet 5/325 Tab*) 1 tab PO Q4H PRN PRN Reason: PAIN - MODERATE Last Admin: 02/16/19 06:00 Dose: 1 tab Pharmacy Profile Note (Nicotine Patch Removal Note*) 1 note FOLLOW UP 2100 [facility] [place] Last Admin: 02/15/19 22:38 Dose: Not Given Pramipexole Dihydrochloride (Mirapex Tab*) 1 mg PO BID [facility] [place] Last Admin: 02/15/19 20:45 Dose: 1 mg Pregabalin (Lyrica Cap(*)) 200 mg PO TID [facility] [place] Last Admin: 02/16/19 08:26 Dose: 200 mg Tiotropium [place] (Spiriva Respimat 2.5 Mcg) 2 puff INH DAILY [facility] [place] Last Admin: 02/16/19 07:57 Dose: 2 puff Vital Signs - 8 hr 02/16/19 02/16/19 02/16/19 02:27 03:00 03:01 Temperature Pulse Rate 54 56 Respiratory 26 12 16 Rate Blood Pressure 128/87 (mmHg) O2 Sat by Pulse 95 94 Oximetry 02/16/19 02/16/19 02/16/19 03:43 04:00 05:00 Temperature 98.2 F Pulse Rate 49 49 Respiratory 12 11 Rate Blood Pressure 127/75 129/73 (mmHg) O2 Sat by Pulse 100 100 Oximetry 02/16/19 02/16/19 02/16/19 06:00 07:00 07:57 Temperature Pulse Rate 70 Respiratory 23 21 17 Rate Blood Pressure 93/76 (mmHg) O2 Sat by Pulse 96 Oximetry 02/16/19 02/16/19 02/16/19 08:00 08:01 08:26 Temperature Pulse Rate 88 Respiratory 23 24 22 Rate Blood Pressure 117/93 (mmHg) O2 Sat by Pulse 97 Oximetry Oxygen Devices in Use Now: Nasal Cannula Appearance: Obese, elderly white female, sitting in chair, appearing in NAD Eyes: No Scleral Icterus, PERRLA Ears/Nose/Mouth/Throat: Mucous Membranes Moist, - - edentulous Neck: NL Appearance and Movements; NL JVP Respiratory: Symmetrical Chest Expansion and Respiratory Effort, - - wheezing in bilateral upper lung nelson; diminished air sounds; not utilizing accessory muscles with respiration Cardiovascular: NL Sounds; No Murmurs; No JVD, - - irregular rhythm Abdominal: - - abd soft, nontender, nondistended Extremities: No Edema, No Clubbing, Cyanosis Skin: No Rash or Ulcers Neurological: Alert and Oriented x 3, NL Muscle Strength and Tone Result Diagrams: 02/15/19 09:05 02/15/19 09:05 Microbiology and Other Data: Microbiology 02/13/19 05:38 Aerobic Blood Culture - Preliminary Blood Venous No Growth Day 1 Anaerobic Blood Culture - Preliminary No Growth Day 1 02/13/19 05:01 Aerobic Blood Culture - Preliminary Blood Venous No Growth Day 1 Anaerobic Blood Culture - Preliminary No Growth Day 1 02/13/19 09:20 Nasal Screen MRSA (PCR) - Final Nasal Mrsa Not Detected Assess/Plan/Problems-Billing Assessment: Mrs Regalado is a 73yo F with PMH of chronic hypoxemic respiratory failure secondary to severe COPD, on home O2 at 3 liter; PAF, depression, restless leg syndrome, hypothyroidism, CAD, HTN, HLD, type 2 DM, diastolic CHF, seizure disorder, chronic back pain, GERD, PVD, gout, critical s/p TAVR, CVA, who presented to ED with c/o dyspnea, found to have COPD exacerbation secondary to bronchitis. - Patient Problems (1) Acute and chronic respiratory failure with hypoxia Current Visit: Yes Status: Acute Code(s): J96.21 - ACUTE AND CHRONIC RESPIRATORY FAILURE WITH HYPOXIA SNOMED Code(s): 18442105 Comment: - Secondary to COPD exacerbation - With frequent anxiety/panic which brings SOB, resulting in hypoxia - Transferred back to ICU on 02/15 and improved with vapotherm; now requiring only 6L NC and stable; tranferring back to floor - On 3L O2 at home (2) COPD (chronic obstructive pulmonary disease) Current Visit: Yes Status: Chronic Priority: High Code(s): J44.9 - CHRONIC OBSTRUCTIVE PULMONARY DISEASE, UNSPECIFIED SNOMED Code(s): 45435463 Comment: - With acute exacerbation secondary to bronchitis - Continue steroids, antibiotics, and bronchodilators - Productive cough with green sputum continues, but frequency is improving per patient - Changing prn liquid mucinex to BID scheduled tab - Changing IV azithromycin to po 250 mg (today is day #4/5) (3) Chest pain Current Visit: Yes Status: Acute Priority: High Code(s): R07.9 - CHEST PAIN, UNSPECIFIED SNOMED Code(s): 71335058 Comment: - Resolved - EKG shows bigeminy with no acute ischemic changes, troponins are negative x 3 - CTA chest negative for PE (4) Itching Current Visit: Yes Status: Acute Code(s): L29.9 - PRURITUS, UNSPECIFIED SNOMED Code(s): 406623175 Comment: -at time of evaluation today, itching has resolved, but this has been an ongoing issue -I hesitate to continue antihistamines for this issue because of patient's poor respiratory reserve and age -d/c benadryl and added prn calamine lotion (5) Restless leg syndrome Current Visit: Yes Status: Chronic Comment: - This seems to be her major issue in conjunction with diabetic peripheral neuropathy. - Continue Mirapex and Lyrica - Appreciate neurology consult; cont prn percocet however this is not a good senior care solution for this patient given her social situation - Lumbar spine MRI with interval worsening of forminal and central stenosis; Dr. Sewell with neurology recommends outpatient neurosurgery referral - PMRU referral placed (6) Paroxysmal atrial fibrillation Current Visit: Yes Status: Acute Code(s): I48.0 - PAROXYSMAL ATRIAL FIBRILLATION SNOMED Code(s): 048934615 Comment: - Rate controlled - Continue Metoprolol and Apixaban (7) Diabetes Current Visit: Yes Status: Chronic Priority: High Code(s): E11.9 - TYPE 2 DIABETES MELLITUS WITHOUT COMPLICATIONS SNOMED Code(s): 96272029 Comment: - Controlled. - Continue FS with Lispro SS. (8) HTN (hypertension) Current Visit: Yes Status: Chronic Priority: High Code(s): I10 - ESSENTIAL (PRIMARY) HYPERTENSION SNOMED Code(s): 44917185 Comment: - Controlled - continue HCTZ, metoprolol succinate, amlodipine with holding parameters. (9) DVT prophylaxis Current Visit: Yes Status: Acute Priority: High Code(s): YGT7230 - SNOMED Code(s): 172804080 Comment: - Apixaban (10) Full code status Current Visit: Yes Status: Acute Priority: High Code(s): Z78.9 - OTHER SPECIFIED HEALTH STATUS SNOMED Code(s): 080826660 Status and Disposition: Inpatient.
[2019-02-16] MEDS: Fluticasone NASAL SPRAY 50MCG* 16 gm SPRAY BTL BOTH NARES SCH (11:53)
[2019-02-16] MEDS: Pramipexole TAB* 0.5 MG PO SCH ×2 (12:00→21:10)
[2019-02-16] MEDS: Azithromycin TAB* 250 MG PO SCH (12:00)
[2019-02-16] MEDS: guaiFENesin ER TAB 600 MG PO SCH ×2 (12:00→21:12)
[2019-02-16] MEDS: Cetirizine* 10 MG TAB PO SCH (21:10)
[2019-02-16] MEDS: Atorvastatin* 40 MG TAB PO SCH (21:10)
[2019-02-16] MEDS: Nicotine Patch Removal NOTE FOLLOW UP SCH (21:12)
[2019-02-17] MEDS: Albuterol 2.5 MG/3 ML NEB.SOL* (0.083%) INH SCH ×4 (03:07→20:02)
[2019-02-17] MEDS ORDERED: Bisacodyl EC TAB* 5 MG PO PRN (04:39)
[2019-02-17] MEDS: methylPREDNISolone SOD 40 MG* 1 ML VIAL IV SCH ×2 (05:25→17:07)
[2019-02-17 06:30] LABS: BUN/Creatinine Ratio 38.4 (8-20); Calcium 9.8 mg/dL (8.6-10.3); EGFR African American 66.9 (>60); EGFR Non-African American 55.3 (>60); Potassium 4.5 mmol/L (3.5-5.0)
[2019-02-17] MEDS: Mometasone/Formoter 200/5 MDI INH SCH ×2 (07:05→20:03)
[2019-02-17] MEDS: SPIRIVA Respimat* (tiotropium) 2.5 mcg/inh Inhaler INH SCH (07:06)
--- NOTE | 2019-02-17 08:20 | PN ---
Subjective Date of Service: 02/17/19 Interval History: Patient evaluated on medical floor. Awakes easily from sleep. Tells me her cough has become less frequent and with less sputum since seeing her yesterday. Denies difficulty breathing, chest pain, abd pain, fever/chills. Tells me her itching is still resolved. Family History: Unchanged from Admission Social History: Unchanged from Admission Past Medical History: Unchanged from Admission Objective Active Medications: Acetaminophen (Tylenol Tab*) 650 mg PO Q6H PRN PRN Reason: PAIN - MILD Last Admin: 02/13/19 18:19 Dose: 650 mg Albuterol (Ventolin Hfa Inhaler*) 2 puff INH Q4H PRN PRN Reason: SOB/WHEEZING Albuterol (Ventolin 2.5 Mg/3 Ml Neb.Marjorie*) 2.5 mg INH [id number] AWAKE [facility] Last Admin: 02/17/19 07:05 Dose: 2.5 mg Amlodipine Besylate (Norvasc Tab*) 10 mg PO DAILY [facility] Last Admin: 02/16/19 08:27 Dose: 10 mg Apixaban (Eliquis*) 5 mg PO BID [facility] Last Admin: 02/16/19 21:11 Dose: 5 mg Atorvastatin Calcium (Lipitor*) 40 mg PO 2100 [facility] Last Admin: 02/16/19 21:10 Dose: 40 mg Azithromycin (Zithromax Tab*) 250 mg PO DAILY [facility] Last Admin: 02/16/19 12:00 Dose: 250 mg Bisacodyl (Dulcolax Ec Tab*) 5 mg PO DAILY PRN PRN Reason: CONSTIPATION Last Admin: 02/17/19 05:25 Dose: 5 mg Calamine (Calamine Lotion*) 1 applic TOPICAL QID PRN PRN Reason: ITCHING Cetirizine HCl (Zyrtec*) 10 mg PO BEDTIME [facility] Last Admin: 02/16/19 21:10 Dose: 10 mg Dextrose (Dextrose 50% Vial 50 Ml*) 25 ml IV PUSH .FOR FS < 60 - SS PRN PRN Reason: FS < 60 Diazepam (Valium Tab(*)) 10 mg PO BID [facility] Last Admin: 02/16/19 21:11 Dose: 10 mg Fluticasone Propionate (Flonase Nasal [place] 50mcg*) 1 spray BOTH NARES DAILY [facility] Last Admin: 02/16/19 11:53 Dose: Not Given Guaifenesin (Mucinex*) 600 mg PO BID [facility] Last Admin: 02/16/19 21:12 Dose: 600 mg Hydrochlorothiazide (Hydrodiuril Tab*) 25 mg PO DAILY [facility] Last Admin: 02/16/19 08:27 Dose: 25 mg Insulin Human Lispro (Humalog*) 0 units SUBCUT ACHS [facility]; Protocol Last Admin: 02/16/19 22:13 Dose: 4 units Magnesium Oxide (Magox 400 Tab*) 400 mg PO DAILY [facility] Last Admin: 02/16/19 08:26 Dose: 400 mg Methylprednisolone Sodium Succinate (Solu-Medrol 40 Mg) 40 mg IV Q12H [facility] Last Admin: 02/17/19 05:25 Dose: 40 mg Metoprolol Succinate (Toprol Xl Tab*) 25 mg PO DAILY [facility] Last Admin: 02/16/19 08:28 Dose: 25 mg Mometasone Furoate/Formoterol Fumar (Dulera 200/5 Mdi*) 2 puff INH BID [facility]; Protocol Last Admin: 02/17/19 07:05 Dose: 2 puff Nicotine (Nicotine Patch 21 Mg/24 Hr*) 1 patch TRANSDERM DAILY [facility] Last Admin: 02/16/19 08:31 Dose: 1 patch Nicotine Polacrilex (Nicotine Gum*) 4 mg PO Q2H PRN PRN Reason: CRAVING Nitroglycerin (Nitroglycerin Tab 0.4 Mg*) 0.4 mg SL Q5M PRN PRN Reason: chest pain Oxycodone/Acetaminophen (Percocet 5/325 Tab*) 2 tab PO Q4H PRN PRN Reason: PAIN - SEVERE Last Admin: 02/16/19 21:11 Dose: 2 tab Oxycodone/Acetaminophen (Percocet 5/325 Tab*) 1 tab PO Q4H PRN PRN Reason: PAIN - MODERATE Last Admin: 02/16/19 06:00 Dose: 1 tab Pharmacy Profile Note (Nicotine Patch Removal Note*) 1 note FOLLOW UP 2099 [facility] Last Admin: 02/16/19 21:12 Dose: 1 note Polyethylene Glycol/Electrolytes (Miralax*) 17 gm PO 0800,2100 [facility] Pramipexole Dihydrochloride (Mirapex Tab*) 1 mg PO BID [facility] Last Admin: 02/16/19 21:10 Dose: 1 mg Pregabalin (Lyrica Cap(*)) 200 mg PO TID [facility] Last Admin: 02/16/19 21:11 Dose: 200 mg Tiotropium [place] (Spiriva Respimat 2.5 Mcg) 2 puff INH DAILY [facility] Last Admin: 02/17/19 07:06 Dose: 2 puff Vital Signs - 8 hr 02/17/19 02/17/19 02/17/19 02:35 07:09 07:11 Temperature 98.0 F Pulse Rate 51 62 61 Respiratory 20 16 16 Rate Blood Pressure 113/54 (mmHg) O2 Sat by Pulse 91 92 92 Oximetry 02/17/19 02/17/19 07:12 07:52 Temperature 97.2 F Pulse Rate 62 52 Respiratory 16 24 Rate Blood Pressure 150/82 (mmHg) O2 Sat by Pulse 92 92 Oximetry Oxygen Devices in Use Now: Nasal Cannula Appearance: Obese, elderly white female laying upright in bed, appearing in NAD Eyes: No Scleral Icterus, PERRLA Ears/Nose/Mouth/Throat: Mucous Membranes Moist, - - edentulous Neck: NL Appearance and Movements; NL JVP Respiratory: Symmetrical Chest Expansion and Respiratory Effort, Clear to Auscultation, - - diminished lung sounds Cardiovascular: - - irregular heartbeat, consistent with bigeminy, no murmurs appreciated Abdominal: - - abd soft, nontender, nondistended Extremities: No Edema, No Clubbing, Cyanosis Skin: No Rash or Ulcers Neurological: Alert and Oriented x 3 Result Diagrams: 02/15/19 09:05 02/17/19 06:05 Microbiology and Other Data: Microbiology 02/13/19 05:38 Aerobic Blood Culture - Preliminary Blood Venous No Growth Day 1 Anaerobic Blood Culture - Preliminary No Growth Day 1 02/13/19 05:01 Aerobic Blood Culture - Preliminary Blood Venous No Growth Day 1 Anaerobic Blood Culture - Preliminary No Growth Day 1 02/13/19 09:20 Nasal Screen MRSA (PCR) - Final Nasal Mrsa Not Detected Assess/Plan/Problems-Billing Assessment: Mrs Regalado is a 73yo F with PMH of chronic hypoxemic respiratory failure secondary to severe COPD, on home O2 at 3 liter; PAF, depression, restless leg syndrome, hypothyroidism, CAD, HTN, HLD, type 2 DM, diastolic CHF, seizure disorder, chronic back pain, GERD, PVD, gout, critical s/p TAVR, CVA, who presented to ED with c/o dyspnea, found to have COPD exacerbation secondary to bronchitis. - Patient Problems (1) Acute and chronic respiratory failure with hypoxia Current Visit: Yes Status: Acute Code(s): J96.21 - ACUTE AND CHRONIC RESPIRATORY FAILURE WITH HYPOXIA SNOMED Code(s): 25531917 Comment: - Secondary to COPD exacerbation - With frequent anxiety/panic which brings SOB, resulting in hypoxia - Multiple transfers to ICU for vapotherm, now on medical floor - On 3L O2 at home. Requiring 5L today which is improvement from yesterday (2) COPD (chronic obstructive pulmonary disease) Current Visit: Yes Status: Chronic Priority: High Code(s): J44.9 - CHRONIC OBSTRUCTIVE PULMONARY DISEASE, UNSPECIFIED SNOMED Code(s): 96273068 Comment: - With acute exacerbation secondary to bronchitis - Continue mucinex and bronchodilators - Productive cough is improved per patient - Today is last dose of azithromycin, will d/c - Changing BID solumedrol to prednisone 60mg daily (3) Restless leg syndrome Current Visit: Yes Status: Chronic Comment: - This seems to be her major issue in conjunction with diabetic peripheral neuropathy. - Continue Mirapex and Lyrica - Appreciate neurology consult - Changing percocet to only for breakthrough and ordering tramadol for severe pain - Lumbar spine MRI with interval worsening of forminal and central stenosis; Dr. Sewell with neurology recommends outpatient neurosurgery referral - PMRU referral placed (4) Paroxysmal atrial fibrillation Current Visit: Yes Status: Acute Code(s): I48.0 - PAROXYSMAL ATRIAL FIBRILLATION SNOMED Code(s): 189257486 Comment: - Rate controlled - Continue Metoprolol and Apixaban (5) Anxiety Current Visit: Yes Status: Acute Code(s): F41.9 - ANXIETY DISORDER, UNSPECIFIED SNOMED Code(s): 47462047 Comment: -patient's home valium was increased during this hospital stay to 10 mg BID -decreasing PM dose to 5mg to slowly taper to home dose -patient would benefit from SSRI, starting celexa (6) Diabetes Current Visit: Yes Status: Chronic Priority: High Code(s): E11.9 - TYPE 2 DIABETES MELLITUS WITHOUT COMPLICATIONS SNOMED Code(s): 89399835 Comment: - Controlled. - Continue FS with Lispro SS. (7) HTN (hypertension) Current Visit: Yes Status: Chronic Priority: High Code(s): I10 - ESSENTIAL (PRIMARY) HYPERTENSION SNOMED Code(s): 79079009 Comment: - Controlled - continue HCTZ, metoprolol succinate, amlodipine with holding parameters. (8) DVT prophylaxis Current Visit: Yes Status: Acute Priority: High Code(s): RMJ6729 - SNOMED Code(s): 962981648 Comment: - Apixaban (9) Full code status Current Visit: Yes Status: Acute Priority: High Code(s): Z78.9 - OTHER SPECIFIED HEALTH STATUS SNOMED Code(s): 651239299 Status and Disposition: Inpatient. Pending [facility] placement
[2019-02-17] MEDS: Polyethylene Glycol 3350* 17 GM PACKET PO SCH ×2 (08:49→21:32)
[2019-02-17] MEDS: Insulin LISPRO* 1 UNITS UNIT SUBCUT SCH ×4 (08:49→21:56)
[2019-02-17] MEDS: Magnesium Oxide TAB* 400 MG PO SCH (08:50)
[2019-02-17] MEDS: Pramipexole TAB* 0.5 MG PO SCH ×2 (08:50→21:32)
[2019-02-17] MEDS: Apixaban* 5 MG TAB PO SCH ×2 (08:50→21:33)
[2019-02-17] MEDS: Azithromycin TAB* 250 MG PO SCH (08:50)
[2019-02-17] MEDS: Hydrochlorothiazide TAB* 25 MG PO SCH (08:50)
[2019-02-17] MEDS: amLODIPine TAB* 5 MG PO SCH (08:50)
[2019-02-17] MEDS: Fluticasone NASAL SPRAY 50MCG* 16 gm SPRAY BTL BOTH NARES SCH (08:50)
[2019-02-17] MEDS: Metoprolol Succinate XL TAB* 25 MG PO SCH (08:50)
[2019-02-17] MEDS: Diazepam TAB(*) 5 MG PO SCH (08:51)
[2019-02-17] MEDS: Nicotine PATCH 21 MG/24 HR* PATCH TRANSDERM SCH (08:51)
[2019-02-17] MEDS: Pregabalin CAP(*) 100 MG PO SCH ×3 (08:51→21:33)
[2019-02-17] MEDS: guaiFENesin ER TAB 600 MG PO SCH ×2 (08:51→21:32)
[2019-02-17] MEDS ORDERED: traMADol TAB* 50 MG PO PRN (17:20)
[2019-02-17] MEDS ORDERED: oxyCODONE/Acetamin 5/325 MG* TAB PO PRN (17:20)
[2019-02-17] MEDS ORDERED: Diazepam TAB(*) 5 MG PO SCH ×2 (21:00)
[2019-02-17] MEDS: Cetirizine* 10 MG TAB PO SCH (21:32)
[2019-02-17] MEDS: Atorvastatin* 40 MG TAB PO SCH (21:32)
[2019-02-17] MEDS: Nicotine Patch Removal NOTE FOLLOW UP SCH (21:37)
[2019-02-18] MEDS: Albuterol 2.5 MG/3 ML NEB.SOL* (0.083%) INH SCH ×6 (01:38→23:19)
[2019-02-18] MEDS: Mometasone/Formoter 200/5 MDI INH SCH ×2 (07:46→19:54)
[2019-02-18] MEDS: SPIRIVA Respimat* (tiotropium) 2.5 mcg/inh Inhaler INH SCH (07:46)
[2019-02-18] MEDS: Insulin LISPRO* 1 UNITS UNIT SUBCUT SCH ×4 (07:52→22:15)
[2019-02-18] MEDS ORDERED: Diazepam TAB(*) 10 MG PO SCH (09:00)
[2019-02-18] MEDS: Apixaban* 5 MG TAB PO SCH ×2 (09:27→22:06)
[2019-02-18] MEDS: Nicotine PATCH 21 MG/24 HR* PATCH TRANSDERM SCH (09:27)
[2019-02-18] MEDS: Pramipexole TAB* 0.5 MG PO SCH ×2 (09:28→22:06)
[2019-02-18] MEDS: Hydrochlorothiazide TAB* 25 MG PO SCH (09:28)
[2019-02-18] MEDS: amLODIPine TAB* 5 MG PO SCH (09:29)
[2019-02-18] MEDS: Metoprolol Succinate XL TAB* 25 MG PO SCH ×2 (09:29→09:38)
[2019-02-18] MEDS: Polyethylene Glycol 3350* 17 GM PACKET PO SCH ×2 (09:29→22:04)
[2019-02-18] MEDS: Magnesium Oxide TAB* 400 MG PO SCH (09:30)
[2019-02-18] MEDS: Citalopram TAB* 10 MG PO SCH (09:30)
[2019-02-18] MEDS: Pregabalin CAP(*) 100 MG PO SCH ×3 (09:30→22:04)
[2019-02-18] MEDS: Fluticasone NASAL SPRAY 50MCG* 16 gm SPRAY BTL BOTH NARES SCH (09:31)
[2019-02-18] MEDS: guaiFENesin ER TAB 600 MG PO SCH ×2 (09:31→22:06)
[2019-02-18] MEDS: predniSONE TAB* 20 MG PO SCH (09:32)
--- NOTE | 2019-02-18 10:24 | PN ---
Subjective Date of Service: 02/18/19 Interval History: Patient tells me she doesn't want to be on valium anymore. Expresses interest in long-acting medication to overall reduce anxiety burden. Tells me her LE pain is well controlled. Denies chest pain, difficulty breathing, fever/chills, abd pain. Her cough is continuing to improve she tells me. Per PT, knee buckling continues with ambulation. Family History: Unchanged from Admission Social History: Unchanged from Admission Past Medical History: Unchanged from Admission Objective Active Medications: Acetaminophen (Tylenol Tab*) 650 mg PO Q6H PRN PRN Reason: PAIN - MILD Last Admin: 02/13/19 18:19 Dose: 650 mg Albuterol (Ventolin Hfa Inhaler*) 2 puff INH Q4H PRN PRN Reason: SOB/WHEEZING Albuterol (Ventolin 2.5 Mg/3 Ml Neb.Marjorie*) 2.5 mg INH [id number] AWAKE [facility] Last Admin: 02/18/19 07:46 Dose: 2.5 mg Amlodipine Besylate (Norvasc Tab*) 10 mg PO DAILY [facility] Last Admin: 02/18/19 09:29 Dose: 10 mg Apixaban (Eliquis*) 5 mg PO BID [facility] Last Admin: 02/18/19 09:27 Dose: 5 mg Atorvastatin Calcium (Lipitor*) 40 mg PO 2100 [facility] Last Admin: 02/17/19 21:32 Dose: 40 mg Bisacodyl (Dulcolax Ec Tab*) 5 mg PO DAILY PRN PRN Reason: CONSTIPATION Last Admin: 02/17/19 05:25 Dose: 5 mg Calamine (Calamine Lotion*) 1 applic TOPICAL QID PRN PRN Reason: ITCHING Cetirizine HCl (Zyrtec*) 10 mg PO BEDTIME [facility] Last Admin: 02/17/19 21:32 Dose: 10 mg Citalopram Hydrobromide (Celexa Tab*) 10 mg PO DAILY [facility] Last Admin: 02/18/19 09:30 Dose: 10 mg Dextrose (Dextrose 50% Vial 50 Ml*) 25 ml IV PUSH .FOR FS < 60 - SS PRN PRN Reason: FS < 60 Fluticasone Propionate (Flonase Nasal [place] 50mcg*) 1 spray BOTH NARES DAILY [facility] Last Admin: 02/18/19 09:31 Dose: 1 spray Guaifenesin (Mucinex*) 600 mg PO BID [facility] Last Admin: 02/18/19 09:31 Dose: 600 mg Hydrochlorothiazide (Hydrodiuril Tab*) 25 mg PO DAILY [facility] Last Admin: 02/18/19 09:28 Dose: 25 mg Influenza Virus Vaccine (Fluarix Quad [id number] Syr) 0.5 ml IM .ONCE ONE Stop: 02/19/19 09:01 Insulin Human Lispro (Humalog*) 0 units SUBCUT ACHS [facility]; Protocol Last Admin: 02/18/19 07:52 Dose: Not Given Magnesium Oxide (Magox 400 Tab*) 400 mg PO DAILY [facility] Last Admin: 02/18/19 09:30 Dose: 400 mg Metoprolol Succinate (Toprol Xl Tab*) 25 mg PO DAILY [facility] Last Admin: 02/18/19 09:38 Dose: Not Given Mometasone Furoate/Formoterol Fumar (Dulera 200/5 Mdi*) 2 puff INH BID [facility]; Protocol Last Admin: 02/18/19 07:46 Dose: 2 puff Nicotine (Nicotine Patch 21 Mg/24 Hr*) 1 patch TRANSDERM DAILY [facility] Last Admin: 02/18/19 09:27 Dose: 1 patch Nicotine Polacrilex (Nicotine Gum*) 4 mg PO Q2H PRN PRN Reason: CRAVING Nitroglycerin (Nitroglycerin Tab 0.4 Mg*) 0.4 mg SL Q5M PRN PRN Reason: chest pain Oxycodone/Acetaminophen (Percocet 5/325 Tab*) 1 tab PO Q4H PRN PRN Reason: severe pain breakthrough Last Admin: 02/18/19 01:44 Dose: 1 tab Pharmacy Profile Note (Nicotine Patch Removal Note*) 1 note FOLLOW UP 2099 [facility] Last Admin: 02/17/19 21:37 Dose: 1 note Polyethylene Glycol/Electrolytes (Miralax*) 17 gm PO 0800,2100 [facility] Last Admin: 02/18/19 09:29 Dose: 17 gm Pramipexole Dihydrochloride (Mirapex Tab*) 1 mg PO BID [facility] Last Admin: 02/18/19 09:28 Dose: 1 mg Prednisone (Deltasone Tab*) 60 mg PO DAILY [facility] Last Admin: 02/18/19 09:32 Dose: 60 mg Pregabalin (Lyrica Cap(*)) 200 mg PO TID [facility] Last Admin: 02/18/19 09:30 Dose: 200 mg Tiotropium [place] (Spiriva Respimat 2.5 Mcg) 2 puff INH DAILY [facility] Last Admin: 02/18/19 07:46 Dose: 2 puff Tramadol HCl (Ultram*) 50 mg PO Q6H PRN PRN Reason: severe pain Last Admin: 02/17/19 21:34 Dose: 50 mg Vital Signs - 8 hr 02/18/19 02/18/19 02/18/19 03:33 03:50 07:46 Temperature 98.1 F Pulse Rate 70 37 Respiratory 20 20 22 Rate Blood Pressure 143/84 (mmHg) O2 Sat by Pulse 93 95 Oximetry 02/18/19 09:30 Temperature Pulse Rate Respiratory 18 Rate Blood Pressure (mmHg) O2 Sat by Pulse Oximetry Oxygen Devices in Use Now: Nasal Cannula Appearance: Obese, elderly white female, laying upright in bed, appearing in NAD Eyes: No Scleral Icterus, PERRLA Ears/Nose/Mouth/Throat: Mucous Membranes Moist Neck: NL Appearance and Movements; NL JVP Respiratory: Symmetrical Chest Expansion and Respiratory Effort, - - faint expiratory wheezes throughout Cardiovascular: NL Sounds; No Murmurs; No JVD, RRR Abdominal: - - abd soft, nontender, nondistended Extremities: No Edema, No Clubbing, Cyanosis Skin: No Rash or Ulcers Neurological: Alert and Oriented x 3, NL Muscle Strength and Tone Result Diagrams: 02/15/19 09:05 02/17/19 06:05 Microbiology and Other Data: Microbiology 02/13/19 05:38 Aerobic Blood Culture - Preliminary Blood Venous No Growth Day 1 Anaerobic Blood Culture - Preliminary No Growth Day 1 02/13/19 05:01 Aerobic Blood Culture - Preliminary Blood Venous No Growth Day 1 Anaerobic Blood Culture - Preliminary No Growth Day 1 02/13/19 09:20 Nasal Screen MRSA (PCR) - Final Nasal Mrsa Not Detected Assess/Plan/Problems-Billing Assessment: Mrs Regalado is a 73yo F with PMH of chronic hypoxemic respiratory failure secondary to severe COPD, on home O2 at 3 liter; PAF, depression, restless leg syndrome, hypothyroidism, CAD, HTN, HLD, type 2 DM, diastolic CHF, seizure disorder, chronic back pain, GERD, PVD, gout, critical s/p TAVR, CVA, who presented to ED with c/o dyspnea, found to have COPD exacerbation secondary to bronchitis. - Patient Problems (1) Acute and chronic respiratory failure with hypoxia Current Visit: Yes Status: Acute Code(s): J96.21 - ACUTE AND CHRONIC RESPIRATORY FAILURE WITH HYPOXIA SNOMED Code(s): 34547587 Comment: - Secondary to COPD exacerbation - With frequent anxiety/panic which brings SOB, resulting in hypoxia - Multiple transfers to ICU for vapotherm, now on medical floor - On 3L O2 at home. Requiring 5L today (2) COPD (chronic obstructive pulmonary disease) Current Visit: Yes Status: Chronic Priority: High Code(s): J44.9 - CHRONIC OBSTRUCTIVE PULMONARY DISEASE, UNSPECIFIED SNOMED Code(s): 17960464 Comment: - With acute exacerbation secondary to bronchitis - Continue mucinex, spiriva, dulera, prednisone 60mg - Productive cough is improved per patient - Completed course of azithromycin - Changing frequency of scheduled duonebs back to q4h while awake as patient is wheezing today, which I did not hear on exam yesterday (3) Restless leg syndrome Current Visit: Yes Status: Chronic Comment: - This seems to be her major issue in conjunction with diabetic peripheral neuropathy. - Continue Mirapex and Lyrica - Continue prn percocet only for breakthrough and prn tramadol for severe pain - Lumbar spine MRI with interval worsening of forminal and central stenosis; Dr. Sewell with neurology recommends outpatient neurosurgery referral - PMRU denied patient (4) Paroxysmal atrial fibrillation Current Visit: Yes Status: Acute Code(s): I48.0 - PAROXYSMAL ATRIAL FIBRILLATION SNOMED Code(s): 284359963 Comment: - Rate controlled - Continue Metoprolol and Apixaban (5) Anxiety Current Visit: Yes Status: Acute Code(s): F41.9 - ANXIETY DISORDER, UNSPECIFIED SNOMED Code(s): 90053929 Comment: -patient's home valium was increased during this hospital stay to 10 mg BID. Patient only received this home dose for one total day. -patient expresses interest in no longer taking valium, agreeable to celexa starting -received 10mg this AM and will receive 5mg this PM. Received 5mg in PM yesterday without issue. Will change to 5mg BID for starting tomorrow. This is the patient's home dose she arrived with. -patient would benefit from SSRI, starting celexa -ordering prn buspar if necessary (6) Diabetes Current Visit: Yes Status: Chronic Priority: High Code(s): E11.9 - TYPE 2 DIABETES MELLITUS WITHOUT COMPLICATIONS SNOMED Code(s): 60083609 Comment: - Controlled. - Continue FS with Lispro SS. - Restarting home metformin (7) HTN (hypertension) Current Visit: Yes Status: Chronic Priority: High Code(s): I10 - ESSENTIAL (PRIMARY) HYPERTENSION SNOMED Code(s): 43001971 Comment: - Controlled - continue HCTZ, metoprolol succinate, amlodipine with holding parameters. (8) DVT prophylaxis Current Visit: Yes Status: Acute Priority: High Code(s): HOH9855 - SNOMED Code(s): 254462768 Comment: - Apixaban (9) Full code status Current Visit: Yes Status: Acute Priority: High Code(s): Z78.9 - OTHER SPECIFIED HEALTH STATUS SNOMED Code(s): 730765256 Status and Disposition: Inpatient. Pending [facility] placement
[2019-02-18] MEDS ORDERED: busPIRone TAB* 5 MG PO PRN (10:34)
[2019-02-18] MEDS: metFORMIN* 500 MG TAB PO SCH (17:03)
[2019-02-18] MEDS: Acetaminophen TAB* 325 MG PO PRN (19:34)
[2019-02-18] MEDS: Atorvastatin* 40 MG TAB PO SCH (22:04)
[2019-02-18] MEDS: Diazepam TAB(*) 5 MG PO SCH (22:05)
[2019-02-18] MEDS: Cetirizine* 10 MG TAB PO SCH (22:06)
[2019-02-18] MEDS: Nicotine Patch Removal NOTE FOLLOW UP SCH (22:17)
--- NOTE | 2019-02-19 02:22 | DS ---
CC: Dr. Lidia Marrero * DISCHARGE SUMMARY: DATE OF ADMISSION: 02/13/19 ANTICIPATED DATE OF DISCHARGE: 02/19/19. Please note this date of discharge may change. PROVIDER: STEVE Orlando ATTENDING PHYSICIAN WHILE IN THE HOSPITAL: Annelise Mack MD * (dictated by STEVE Orlando) PRIMARY CARE PROVIDER: Dr. Lidia Marrero CONSULTING NEUROLOGIST WHILE IN THE HOSPITAL: Dr. Rafael Sewell PRIMARY DIAGNOSES: 1. Acute on chronic respiratory failure with hypoxia. 2. Chronic obstructive pulmonary disease exacerbation secondary to bronchitis. 3. Lumbar stenosis. SECONDARY DIAGNOSES: 1. Chronic hypoxic respiratory failure due to chronic obstructive pulmonary disease on 3 L of oxygen at home. 2. Paroxysmal atrial fibrillation. 3. Depression. 4. Restless legs syndrome. 5. Hypothyroidism. 6. Coronary artery disease status post myocardial infarction. 7. Hypertension. 8. Hyperlipidemia. 9. Diabetes mellitus type 2. 10. Diastolic congestive heart failure. 11. Seizure disorder. 12. Chronic pain. 13. Gastroesophageal reflux disease. 14. Peripheral vascular disease. 15. Gout. 16. Previous cerebrovascular accidents. 17. Critical aortic stenosis status post TAVR. 18. Anxiety. STUDIES WHILE IN THE HOSPITAL: Lumbar spine MRI on 02/15/19, impression: Multilevel degenerative spondylosis and osteoarthritis as described at lower level. At L1-L2, there is interval worsening of left foraminal stenosis. At L2- L3, there is moderate acquired central canal stenosis with interval worsening. Chest/thorax CTA: atelectasis of left lower lobe and partial atelectasis of the right lower lobe. Inflammatory infiltrate at the atelectatic lung base is not excluded. Negative for pleural effusion. Negative for pulmonary embolism. Consider nonemergent left renal ultrasound to further assess the mild hyperdense , probable complex cortical cyst. This lesion is relatively low suspicion given stability compared to CT from 01/29/18. HISTORY OF PRESENT ILLNESS/HOSPITAL COURSE: Elysia Regalado is a 73-year-old female with past medical history significant for diastolic heart failure, COPD on 3 L of oxygen previously, history of coronary artery disease, chronic pain who presents to the emergency department on 02/13/19 due to progressive shortness of breath over 1 week and productive cough with green sputum. For further information regarding the details of her admission, please see the history and physical written by Dr. Laura Maloney. The patient was initially admitted to the ICU. She was requiring Vapotherm to breathe comfortably with oxygen saturations greater than 90%. Ultimately, the patient was breathing more comfortably on nasal canula and transferred back to the floor, however, she acutely was hypoxic again which was thought to be likely due to some panic. The patient's valium was then increased. She went back to the ICU requiring Vapotherm. Ultimately, again was weaned back down to normal nasal cannula at 7 L and was transferred onto the floor. She was then having desaturations on 5 L nasal cannula and did receive a full dose of azithromycin for what was likely a bronchitis which induced the COPD exacerbation. The patient was receiving IV Solu-Medrol for the COPD exacerbation and she was switched to p.o. prednisone 60 mg. She was getting scheduled DuoNebs during her time here as well. Ultimately, her breathing was comfortable with good saturations on 5 L. It was difficult to assess her oxygen saturation with exertion because of her poor mobility. Physical Therapy was involved during her stay and found that she was having frequent buckling while walking and did find her to have acute rehab needs. Additionally, the patient has been having longstanding lower extremity pain likely in combination with diabetic neuropathy. Neurology was consulted and Dr. Rafael Sewell requested an MRI of her lumbar spine which did find worsening foraminal and central canal stenosis in his lumbar spine. This is likely contributing to her lower extremity pain. Dr. Sewell recommended outpatient neurosurgical follow up. His finding that because of her social situation of living in the [facility], having poor medical compliance, there were no great medical options to her. He did recommend continuing her Lyrica and restarting opiates to help with the pain. Ultimately, the patient was not requesting the opiates very frequently. I decreased her opiates to tramadol and oxycodone for severe pain breakthrough and on 02/18/19, she had not requested any of these for the entire day. By the time of this dictation at 1700, she tells me that she wishes to attempt weaning off her benzodiazepines and have better alternate control her anxiety. I did start Celexa during her hospital stay as well as p.r.n. BuSpar. Given her poor respiratory function at baseline it would be of benefit to not have both benzodiazepines and opiates on board for this patient especially given her social situation leading up to this hospitalization. DISCHARGE PLAN: Diet: Carbohydrate consistent diet, heart healthy diet. Activity: The patient may return to her normal activity as tolerated. The patient will be going to [facility] for subacute rehab. It is recommended that during her time here she have her benzodiazepines very slowly tapered. Additionally, she will be needing to finish her prednisone taper to completion. She will continue to require oxygen via nasal cannula. It would very much be of benefit if coordination for pain specialist outpatient follow u be provided for this patient. A referral to Dr. Sagastume would be of benefit. Additionally, an outpatient evaluation by neurosurgeon would be of benefit to this patient as well to help resolve this longstanding issue of lower extremity pain. This was recommended by the neurology service. Additionally, the patient should have renal ultrasound follow up of the hyperdensity found in her kidney. This is not emergent. Please taper the patient's nicotine patch as instructed by guidelines. Please attempt to wean the patient off of benzodiazepines if possible during her time at subacute rehab. DISCHARGE MEDICATIONS: Continued home medications: 1. Metformin 500 mg p.o. b.i.d. 2. Amlodipine 10 mg p.o. daily. 3. Incruse Ellipta 1 puff p.o. daily. 4. Triamcinolone 1 inhalation nasal daily. 5. Lyrica 200 mg p.o. t.i.d. 6. Pramipexole 1 mg p.o. b.i.d. 7. Nitroglycerin 0.4 mg sublingual p.r.n. angina. 8. Metoprolol succinate 25 mg p.o. daily. 9. Magnesium oxide 400 mg p.o. daily. 10. Xyzal 5 mg p.o. at bedtime. 11. Hydrocortisone acetate cream 57 g 1 application topically daily p.r.n. dry skin. 12. Hydrochlorothiazide 25 mg p.o. daily. 13. Diazepam 5 mg p.o. b.i.d. 14. Symbicort 2 puff inhaled b.i.d. 15. Lipitor 40 mg p.o. daily. 16. Eliquis 5 mg p.o. b.i.d. 17. Albuterol 2 puffs inhaled q.4 hours p.r.n. shortness of breath/wheezing. 18. Albuterol nebulized solution 2.5 mg inhaled q.4 hours p.r.n. shortness of breath/wheezing. New medications: 1. Citalopram 10 mg p.o. daily. 2. Calamine lotion 1 application topically q.i.d. p.r.n. itching. 3. Nicotine patch 21 mg per 24 hours transdermally applied daily. 4. BuSpar 5 mg p.o. t.i.d. p.r.n. anxiety. 5. Prednisone 60 mg p.o. daily, taper as scheduled at time of actual discharge. 6. Tramadol 50 mg p.o. q.6 hours p.r.n. severe pain. Discontinued home medications: 1. Benadryl 25 mg p.o. daily p.r.n. 2. Endocet 7.5/325 one tab p.o. t.i.d. 3. Acyclovir 800 mg p.o. q.i.d. CONDITION ON DISCHARGE: Improved. DISPOSITION: [facility]. TIME SPENT: Approximately 40 minutes was spent on this discharge. STEVE ORLANDO [id number]/CPS #: [id number]
[2019-02-19] MEDS: Albuterol 2.5 MG/3 ML NEB.SOL* (0.083%) INH SCH ×4 (03:28→14:21)
[2019-02-19] MEDS: Acetaminophen TAB* 325 MG PO PRN ×2 (06:15→13:02)
[2019-02-19] MEDS: Insulin LISPRO* 1 UNITS UNIT SUBCUT SCH ×2 (07:37→13:02)
[2019-02-19] MEDS: Mometasone/Formoter 200/5 MDI INH SCH (07:40)
[2019-02-19] MEDS: SPIRIVA Respimat* (tiotropium) 2.5 mcg/inh Inhaler INH SCH (07:40)
[2019-02-19] MEDS: Nicotine PATCH 21 MG/24 HR* PATCH TRANSDERM SCH (08:07)
[2019-02-19] MEDS: Polyethylene Glycol 3350* 17 GM PACKET PO SCH (08:07)
[2019-02-19] MEDS: guaiFENesin ER TAB 600 MG PO SCH (08:09)
[2019-02-19] MEDS: Metoprolol Succinate XL TAB* 25 MG PO SCH (08:09)
[2019-02-19] MEDS: predniSONE TAB* 20 MG PO SCH (08:09)
[2019-02-19] MEDS: amLODIPine TAB* 5 MG PO SCH (08:10)
[2019-02-19] MEDS: Diazepam TAB(*) 5 MG PO SCH (08:10)
[2019-02-19] MEDS: Apixaban* 5 MG TAB PO SCH (08:10)
[2019-02-19] MEDS: Pramipexole TAB* 0.5 MG PO SCH (08:10)
[2019-02-19] MEDS: metFORMIN* 500 MG TAB PO SCH (08:10)
[2019-02-19] MEDS: Pregabalin CAP(*) 100 MG PO SCH ×2 (08:10→13:01)
[2019-02-19] MEDS: Hydrochlorothiazide TAB* 25 MG PO SCH (08:10)
[2019-02-19] MEDS: Magnesium Oxide TAB* 400 MG PO SCH (08:11)
[2019-02-19] MEDS: Citalopram TAB* 10 MG PO SCH (08:11)
[2019-02-19] MEDS: Fluticasone NASAL SPRAY 50MCG* 16 gm SPRAY BTL BOTH NARES SCH (08:49)
[2019-02-19] MEDS ORDERED: Influenza VAC *QUAD* 2019-20* 0.5 ML SYRINGE IM ONE (09:00)
[2019-02-19 12:10] LABS: Methylmalonic Acid 0.35 nmol/mL (<=0.40)
[2019-02-19 12:19] VITALS: BP 139/51
--- NOTE | 2019-02-19 12:20 | DS ---
DISCHARGE SUMMARY: ADDENDUM: DATE OF ADMISSION: 02/13/19 DATE OF DISCHARGE: 02/19/19 PRIMARY CARE PROVIDER: Lidia Marrero MD. ATTENDING PHYSICIAN: Annelise Mack MD.* (DICTATED BY STEVE RICHARDSON ) PRIMARY DIAGNOSES: 1. [id number] respiratory failure with hypoxia. 2. Chronic obstructive pulmonary disease exacerbation secondary to bronchitis. 3. Lumbar stenosis. HISTORY OF PRESENT ILLNESS/HOSPITAL COURSE: Elysia Regalado is a 73-year-old female with past medical history of COPD requiring 3 L oxygen, diastolic heart failure, CAD, and chronic pain who presented to the ER on 02/13/19. For full and complete details of her hospital course, please see the discharge summary dictated by STEVE Orlando, on 02/18/19. This is an addendum to her discharge summary. The patient was seen today and was felt to be stable for discharge. She is currently requiring O2 at 2 L, which is less than her baseline. She feels that her breathing is improved. Her shortness of breath has improved. She denies wheezing. She complains of continued slight cough that is nonproductive. She denies fevers and chills. Her last bowel movement was yesterday. She does continue to complain of chronic leg pain and left leg weakness, which has been chronic for greater than 5 years due to sequela of previous CVA. At the time of discharge, the patient is eager to be discharged. She has no other complaints. REVIEW OF SYSTEMS: A 14-point review of systems has been performed and all the pertinent positives and negatives are in the HPI. All other systems are negative. PHYSICAL EXAMINATION: Ms. Regalado is a well-developed, well-nourished obese older white woman who is sitting up in bed. She appears to be in no acute distress. She has a nasal cannula in place with oxygen at 2 L. Vital Signs: Temperature 97.8 oral, heart rate 61, respiratory rate 18, oxygen saturation 94 % on 2 L O2, blood pressure 143/74. HEENT: PERRLA, EOMI. Sclerae are nonicteric. Oral mucous membranes are mildly dry. There are no lesions. The tongue is at midline. Unable to see posterior pharynx due to tongue. Cardiovascular: Regular rate and rhythm with S1, S2 present without murmurs, rubs, clicks, or gallops. There is no JVD. Respiratory: Symmetrical chest expansion without use of accessory muscles. There is mild wheezing throughout bilateral lung nelson without rhonchi or rubs. There is no digital clubbing or cyanosis. Abdomen: Bowel sounds in all quadrants. The abdomen is soft without tenderness to palpation. There is no hepatosplenomegaly. Musculoskeletal: Full range of motion. The patient has bilateral lower extremity weakness with left weaker than right. This is chronic. Neuro: The patient is awake. She is alert and oriented x3. Cranial nerves are grossly intact. Motor strength 5/5 in bilateral upper extremities and right lower extremity, 3/5 left lower extremity. DISPOSITION: Ms. Regalado is stable for discharge to [facility]. Condition fair. DISCHARGE PLAN: Please see Lesa Chi's discharge summary for full details. 1. Slowly taper off benzodiazepines. 2. Taper off opiates. 3. Continue nicotine patches and taper as suggested by guidelines. 4. Complete prednisone taper 60 mg x1 day, 50 mg x3 days, 40 mg x3 days, 30 mg x3 days, 20 mg x3 days, 10 mg x3 days, then discontinue medication. 5. Follow up with primary care provider at discharge. Discusse need for outpatient renal ultrasound. 6. Outpatient neurosurgery followup for lower extremity neuropathy. 7. Follow up with pain management. This is a summarized report of a complex medical history and hospital stay. For further details, please see the entire medical record. TIME SPENT: Approximately 20 minutes were spent on this discharge, greater than half that time was spent [id number] with the patient discussing discharge plans and instructions. STEVE RICHARDSON [id number]/CPS #: [id number] MEMO
== END 2019-02-19 15:00 | DRG 190 ==
LOC: ED 04:21 → ICU 07:44 → MED 02-14 11:14 → ICU 02-15 07:45 → MED 02-16 11:36
PROVIDERS: ADMIT Internal Medicine; ATTEND Internal Medicine
DX: J44.1 Chronic obstructive pulmonary disease with (acute) exacerbation (principal); J96.21 Acute and chronic respiratory failure with hypoxia; I50.32 Chronic diastolic (congestive) heart failure; J98.11 Atelectasis; M48.061 Spinal stenosis, lumbar region without neurogenic claudication; Z99.81 Dependence on supplemental oxygen; I25.10 Atherosclerotic heart disease of native coronary artery without angina pectoris; G89.29 Other chronic pain; E66.9 Obesity, unspecified; J40 Bronchitis, not specified as acute or chronic; I48.0 Paroxysmal atrial fibrillation; F32.9 Major depressive disorder, single episode, unspecified; G25.81 Restless legs syndrome; E03.9 Hypothyroidism, unspecified; I11.0 Hypertensive heart disease with heart failure; E78.5 Hyperlipidemia, unspecified; G40.909 Epilepsy, unspecified, not intractable, without status epilepticus; K21.9 Gastro-esophageal reflux disease without esophagitis; M10.9 Gout, unspecified; F17.210 Nicotine dependence, cigarettes, uncomplicated; Z66 Do not resuscitate; E78.00 Pure hypercholesterolemia, unspecified; M19.90 Unspecified osteoarthritis, unspecified site; H91.90 Unspecified hearing loss, unspecified ear; R07.9 Chest pain, unspecified; R00.8 Other abnormalities of heart beat; E11.51 Type 2 diabetes mellitus with diabetic peripheral angiopathy without gangrene; M47.9 Spondylosis, unspecified; F41.0 Panic disorder [episodic paroxysmal anxiety]; Z79.84 Long term (current) use of oral hypoglycemic drugs; Z90.49 Acquired absence of other specified parts of digestive tract; Z90.710 Acquired absence of both cervix and uterus; Z88.6 Allergy status to analgesic agent; Z88.8 Allergy status to other drugs, medicaments and biological substances; I69.344 Monoplegia of lower limb following cerebral infarction affecting left non-dominant side; Z68.34 Body mass index [BMI] 34.0-34.9, adult; I25.2 Old myocardial infarction; Z79.01 Long term (current) use of anticoagulants; Z95.2 Presence of prosthetic heart valve; Z88.1 Allergy status to other antibiotic agents; Z88.0 Allergy status to penicillin; Z88.5 Allergy status to narcotic agent; Z82.49 Family history of ischemic heart disease and other diseases of the circulatory system; Z81.3 Family history of other psychoactive substance abuse and dependence; Z72.89 Other problems related to lifestyle; Z88.2 Allergy status to sulfonamides; Z85.42 Personal history of malignant neoplasm of other parts of uterus; Z83.3 Family history of diabetes mellitus; E11.42 Type 2 diabetes mellitus with diabetic polyneuropathy; L29.9 Pruritus, unspecified
CPT/HCPCS: 36415; 71045; 71275; 72148; 80048; 80053; 82607; 82803; 83605; 83735; 83921; 84439; 84484; 85025; 86038; 86618; 87040; 87641; 90686; 93005; 93970; 94640; 94667; 94668; 99285; 99406; A9270-GY; G8978-GP-CK; G8979-GP-CI; G8987-GO-CL; G8988-GO-CI; J0456; J2270; J2920; J2930; J3535; J7512; J7611; Q9967

== ENCOUNTER 2019-03-13 08:40 | Inpatient (IN) | payer MEDICARE, MEDICAID ==
--- NOTE | 2019-03-13 09:02 | ED ---
Complex/Multi-Sys Presentation - HPI Summary HPI Summary: Patient is a 73-year-old female who presents emergency Department from [facility] for evaluation after numerous falls. Report from EMS states that patient had 3 falls in the last 24 hours. Patient states she's been losing her balance. EMS also notes the patient was hypoxic and hypotensive upon arrival. Patient does wear 2 L nasal cannula chronically. Past medical history of CAD, hypertension, hyperlipidemia, atrial fibrillation, COPD, CHF. Patient has no complaints in the ER and states she wants to go home. Symptoms are moderate in severity. No current modifying factors. - History Of Current Complaint Time Seen by Provider: 03/13/19 08:52 Hx Obtained From: Patient, EMS - Allergies/Home Medications Allergies/Adverse Reactions: Allergies Allergy/AdvReac Type Severity Reaction Status Date / Time aspirin Allergy Unknown Verified 12/07/18 04:39 Reaction Details Carbapenems Allergy Unknown Verified 12/07/18 04:39 Reaction Details Cephalosporins Allergy Unknown Verified 12/07/18 04:39 Reaction Details ketorolac Allergy Unknown Verified 12/07/18 04:39 Reaction Details morphine Allergy Unknown Verified 12/07/18 04:39 Reaction Details Penicillins Allergy Unknown Verified 12/07/18 04:39 Reaction Details sulfamethoxazole Allergy Unknown Verified 12/07/18 04:39 [From Bactrim] Reaction Details trimethoprim [From Bactrim] Allergy Unknown Verified 12/07/18 04:39 Reaction Details Home Medications: Home Medications Furosemide TAB* [Lasix TAB*] 20 mg PO DAILY 03/13/19 [History Confirmed 03/13/19 ] Hydrocortisone Acetate [Vanicream Hc] 1 applic TOPICAL TID 03/13/19 [History Confirmed 03/13/19] Methyl Salicylate/Menthol [Goodsense Muscle Rub 8-30 %] 1 applic TOPICAL BID 08/27 [History Confirmed 03/13/19] Nitroglycerin TAB 0.4 MG* 0.4 mg SL Q5M PRN 03/13/19 [History Confirmed 03/13/19 ] Pramipexole TAB* [Mirapex TAB*] 1 mg PO BID 03/13/19 [History Confirmed 03/13/19 ] PMH/Surg Hx/FS Hx/Imm Hx Previously Healthy: Yes Endocrine/Hematology History: Reports: Hx Anticoagulant Therapy, Hx Diabetes, Hx Thyroid Disease - hypothyroid Denies: Hx Blood Transfusions Cardiovascular History: Reports: Hx Angina, Hx Congestive Heart Failure, Hx Coronary Artery Disease, Hx Hypercholesterolemia, Hx Hypertension, Hx Peripheral Vascular Disease, Hx Syncope, Other Cardiovascular Problems/ Disorders - CHF Denies: Hx Pacemaker/ICD Respiratory History: Reports: Hx Asthma, Hx Chronic Bronchitis, Hx Chronic Obstructive Pulmonary Disease (COPD) - PT ON HOME O2 3 L/MIN, Hx Pneumonia, Hx Pulmonary Edema, Hx Seasonal Allergies, Hx Sleep Apnea Denies: Hx Lung Cancer GI History: Reports: Hx Gastroesophageal Reflux Disease History: Denies: Hx Renal Disease Musculoskeletal History: Reports: Hx Arthritis, Hx Back Problems, Hx Bursitis, Hx Orthopedic Injury, Hx Osteoporosis Denies: Hx Fibromyalgia Sensory History: Reports: Hx Vision Problem, Hx Hearing Problem - JENA Denies: Hx Contacts or Glasses, Hx Hearing Aid Opthamlomology History: Reports: Hx Vision Problem Denies: Hx Contacts or Glasses Neurological History: Reports: Hx CVA Denies: Hx Dementia, Hx Developmental Delay, Hx Headaches, Hx Migraine, Hx Seizures, Hx Spinal Cord Injury, Hx Transient Ischemic Attacks (TIA) Psychiatric History: Reports: Hx Anxiety, Hx Depression, Hx of Violent Episodes Against Others Denies: Hx Eating Disorder, Hx Panic Disorder - Cancer History Cancer Type, Location and Year: Uterine Cancer Hx Chemotherapy: No Hx Radiation Therapy: Yes Hx Palliative Cancer Treatment: No - Surgical History Surgery Procedure, Year, and Place: cholecystectomy, carpal tunnel bilat hands, hysterectomy, heart valve repair/replacement (2018) Hx Anesthesia Reactions: No Infectious Disease History: Reports: Hx of Known/Suspected MRSA - Family History Known Family History: Positive: Hypertension, Diabetes, Non-Contributory - Social History Occupation: Retired Lives: At [facility] [employer] Alcohol Use: Occasionally Alcohol Amount: wine Hx Substance Use: No Substance Use Type: Reports: Marijuana Substance Use Comment - Amount & Last Used: occassional use for pain Hx Tobacco Use: Yes Smoking Status (MU): Light Every Day Tobacco Smoker Type: Cigarettes Amount Used/How Often: 1/2 pack a day Have You Smoked in the Last Year: Yes Review of Systems Constitutional: Negative Negative: Fever, Chills Cardiovascular: Negative Negative: Palpitations, Chest Pain Respiratory: Negative Negative: Shortness Of Breath, Cough Gastrointestinal: Negative Negative: Abdominal Pain, Vomiting, Diarrhea Genitourinary: Negative Negative: dysuria Musculoskeletal: Negative Neurological: Negative Negative: Syncope All Other Systems Reviewed And Are Negative: Yes Physical Exam Triage Information Reviewed: Yes Vital Signs On Initial Exam: Initial Vitals Temp Pulse Resp BP Pulse Ox 98.7 F 88 20 98/55 92 03/13/19 08:52 03/13/19 08:52 03/13/19 08:52 03/13/19 08:52 03/13/19 08:52 Vital Signs Reviewed: Yes Appearance: Positive: Well-Appearing - Patient resting comfortably in bed in no acute distress. Answers questions appropriately. Skin: Positive: Warm, Dry Head/Face: Positive: Normal Head/Face Inspection Eyes: Positive: Normal, EOMI Neck: Positive: Supple Respiratory/Lung Sounds: Positive: Decreased Breath Sounds Cardiovascular: Positive: Normal, RRR Abdomen Description: Positive: Nontender, Soft Musculoskeletal: Positive: Normal, Strength/ROM Intact Neurological: Positive: Normal, Alert, Oriented to Person Place, Time, CN Intact II-III Psychiatric: Positive: Affect/Mood Appropriate Procedures - Sedation Patient Received Moderate/Deep Sedation with Procedure: No Diagnostics - Vital Signs Vital Signs Temp Pulse Resp BP Pulse Ox 03/13/19 08:52 98.7 F 88 20 98/55 92 - Laboratory Result Diagrams: 03/13/19 09:39 03/13/19 09:40 Lab Statement: Any lab studies that have been ordered have been reviewed, and results considered in the medical decision making process. Complex Multi-Symp Course/Dx Course Of Treatment: Pt. afebrile. O2 saturation 92 on 4L. BP 98/55. ECG done at 0904 shows a fib at 108bpm, no STEMI. CXR shows atelectasis per radioloy. Labs show K of 2.8, cr 1.32, GFR 39, troponin 0.09, BNP 469. PT. give IV and PO K. Hospitalist was consulted for potential admission. Case discussed with Dr. Nguyen. Pt.'s started to decrease a bit and she became tachy. Pt. given 500cc of NSS. Pt. was accepted to hospitalist service. - Diagnoses Provider Diagnoses: Hypokalemia, Elevated troponin, Dehydration Discharge ED - Sign-Out/Discharge Documenting (check all that apply): Patient Departure - Discharge Plan Condition: Stable Disposition: ADMITTED TO [facility] Referrals: Janes GAMING,Lidia Abraham [Medical Doctor] - - Billing Disposition and Condition Condition: STABLE Disposition: Admitted to [facility]
[2019-03-13 09:51] LABS: ABS Basophils 0.1 10^3/ul (0-0.2); ABS Lymphocytes 1.7 10^3/ul (1.0-4.8); ABS Monocytes 1.2 10^3/ul (0-0.8); ABS Neutrophils 6.3 10^3/ul (1.5-7.7); Eosinophil % 0.1 %; Hematocrit 38 % (35-47); Hemoglobin 12.8 g/dL (12.0-16.0); Lymphocyte % 18.8 %; Mean Corpuscular HGB Conc 34 g/dL (31-36); Mean Corpuscular Hemoglobin 32 pg (27-31); Mean Corpuscular Volume 93 fL (80-97); Red Blood Count 4.07 10^6 /uL (3.70-4.87); Red Cell Distribution Width 14 % (10-15); White Blood Count 9.3 10^3/uL (3.5-10.8)
[2019-03-13 10:04] LABS: Albumin 3.7 g/dL (3.2-5.2); Albumin/Globulin Ratio 1.5 (1-3); BUN/Creatinine Ratio 47.7 (8-20); C Reactive Protein 90.06 mg/L (<8.01); Calcium 8.8 mg/dL (8.6-10.3); EGFR Non-African American 39.7 (>60); Globulin 2.5 g/dL (2-4); Magnesium 2.1 mg/dL (1.9-2.7); Potassium 2.8 mmol/L (3.5-5.0); Total Bilirubin 1.2 mg/dL (0.2-1.0); Total Protein 6.2 g/dL (6.4-8.9)
[2019-03-13 10:07] LABS: Mean Platelet Volume 9.9 fL (7.4-10.4); Platelet Count 89 10^3/uL (150-450)
[2019-03-13 10:10] LABS: Troponin I 0.09 ng/mL (<0.04)
[2019-03-13] MEDS ORDERED: KCL 20 MEQ/100 ML IVPREMIX* 20 MEQ/100 ML BAG IV ONE (11:02)
[2019-03-13] MEDS ORDERED: Potassium Chlor TAB* 20 MEQ TAB.ER PO ONE (11:02)
[2019-03-13 12:01] LABS: Troponin I 0.07 ng/mL (<0.04)
[2019-03-13] MEDS ORDERED: NS 0.9% 500 ML* 500 ML IV ONE (12:27)
[2019-03-13] MEDS ORDERED: Albuterol 2.5 MG/3 ML NEB.SOL* (0.083%) INH PRN (12:45)
[2019-03-13] MEDS ORDERED: Calamine LOTION* 120 ML TOPICAL PRN (12:45)
[2019-03-13] MEDS ORDERED: NS 0.9% 1000 ML** 1,000 ML IV SCH (12:45)
[2019-03-13] MEDS ORDERED: busPIRone TAB* 5 MG PO PRN (12:45)
[2019-03-13] MEDS ORDERED: Albuterol HFA INHALER* 8 gm MDI INH PRN (12:45)
[2019-03-13] MEDS: Pregabalin CAP(*) 100 MG PO SCH ×2 (14:38→21:30)
--- NOTE | 2019-03-13 15:16 | HP ---
CC: Attending at [place]; Dr. Kallie Nguyen * ADMISSION HISTORY AND PHYSICAL: DATE OF ADMISSION: 03/13/19 PRIMARY CARE PROVIDER: Attending in [place]. ATTENDING FOR THIS ADMISSION: Dr. Kallie Nguyen.* (DICTATED BY NILA CHANDRA NP) CHIEF COMPLAINT: Falls. HISTORY OF PRESENT ILLNESS: Ms. Regalado is a 73-year-old female patient who resides at [facility], who was brought to the emergency department today for report of multiple falls at [place]. The patient upon evaluation in the ED was also found to be more hypoxic than usual. It should be noted that the patient does wear chronic oxygen secondary to [id number] COPD. She is normally on 3 L continuous; however, she was still hypoxic at 3 L and required 4 L of oxygen and was noted to be hypotensive. Laboratory values in the emergency department also showed that she had a low potassium and an elevated BUN and creatinine, and she was somewhat lethargic. For these reasons, hospitalist were asked to evaluate the patient for admission. It should also be noted that the patient was recently admitted to the hospital last month for COPD exacerbation and shortness of breath. She did have an admission prior to that as well at the end of November until early December, also with COPD exacerbation and pneumonia. PAST MEDICAL HISTORY: The patient's past medical history is complex and includes: 1. Chronic hypoxic respiratory failure secondary to severe COPD, on 3 L of oxygen continuous. 2. Paroxysmal atrial fibrillation with a history of RVR. 3. Depression and anxiety. 4. Restless leg syndrome. 5. Hypothyroidism. 6. Hypertension. 7. Coronary artery disease and [place]. 8. Hyperlipidemia. 9. Diabetes mellitus, type 2. 10. Diastolic heart failure. 11. Seizure disorder. 12. Chronic pain syndrome. 13. GERD. 14. Peripheral vascular disease. 15. Gout. 16. Aortic stenosis, status post TAVR. 17. CVAs in the past. PAST SURGICAL HISTORY: Includes: 1. TAVR. 2. Carpal tunnel release. 3. Cholecystectomy. 4. Hysterectomy. HOME MEDICATIONS: Include: 1. Nitroglycerin 0.4 mg sublingual q.5 minutes p.r.n. chest pain. 2. Xyzal 5 mg at bedtime. 3. Hydrocortisone cream topical 3 times a day as needed. 4. Nasacort 1 puff nasal daily. 5. Tylenol 650 mg p.o. q.6 hours as needed. 6. Tramadol 50 mg q.6 hours, max daily dose 4 tablets as needed for pain. 7. Symbicort 160/4.5 two puffs inhaled b.i.d. 8. Mirapex 1 mg p.o. b.i.d. 9. Nicotine patch 21 mg per 24 hours transderm daily. 10. Menthol muscle rub topical 2 times a day. 11. Metoprolol succinate 25 mg p.o. daily. 12. Metformin 500 mg p.o. b.i.d. 13. Lyrica 200 mg p.o. 3 times a day. 14. Mag-Ox 400 mg p.o. daily. 15. Lasix 20 mg p.o. daily. 16. Incruse Ellipta 1 puff inhaled daily. 17. Hydrochlorothiazide 25 mg p.o. daily. 18. Apixaban 5 mg p.o. b.i.d. 19. Diazepam 5 mg p.o. b.i.d. 20. Citalopram 10 mg p.o. daily. 21. BuSpar 5 mg p.o. t.i.d. 22. Calamine lotion topical 4 times a day as needed. 23. Lipitor 40 mg p.o. in the evening. 24. Amlodipine 10 mg p.o. daily. 25. Ventolin nebulizer 2.5 mg inhaled q.4 hours as needed for shortness of breath. 26. Albuterol inhaler 2 puffs q.4 hours as needed, also for shortness of breath. ALLERGIES: Include ASPIRIN, CARBAPENEM, CEPHALOSPORINS, MORPHINE, PENICILLIN, BACTRIM, and KETOROLAC. FAMILY HISTORY: Mother with heart failure and father with an [place], both of cardiac disease and 2 brothers with substance abuse. SOCIAL HISTORY: The patient is an active everyday smoker. Also uses marijuana for pain. She has recreational alcohol use per the record, although the patient is quite lethargic right now and cannot answer very many questions. Regarding alcohol usage, she has been in [place]. Per the record, her surrogate decision maker is her grandson, Omer Alexandra, phone number is [phone]. REVIEW OF SYSTEMS: I am unable to obtain a reliable review of systems secondary to the patient's lethargy. PHYSICAL EXAMINATION GENERAL: The patient is lethargic. She is arousable to tactile stimulation and loud verbal stimulation. Otherwise, she is an ill-appearing woman, appears older than her stated age. VITAL SIGNS: Blood pressure is 81/69, heart rate 100, respiratory rate is 24, O2 saturation is between 90% and 92% on 4 L nasal cannula, temperature is 98.7. HEENT: The patient is atraumatic, normocephalic. PERRLA, nonicteric sclerae. Extraocular movements are intact, although the patient does have some trouble following commands right now. Oral mucosa is dry. Dentition is extremely poor. NECK: Supple, nontender. No JVD noted. No carotid bruit auscultated. LUNGS: Clear bilaterally to auscultation with no wheezing, rhonchi, or rales. Slightly diminished at the bases. CARDIOVASCULAR: S1, S2 present. No gallops or rubs noted. She does have a systolic murmur noted. Rate and rhythm are regular to tachycardic. She is in and out of atrial fibrillation on the monitor. ABDOMEN: Soft, nontender, nondistended. Positive bowel sounds in all 4 quadrants. No organomegaly noted. : Deferred. MUSCULOSKELETAL: There is no clubbing, no cyanosis. She has no pedal edema. She has some discoloration in the anterior portion of the shins and lower extremities. Otherwise, her extremities are warm, dry, and intact with no skin breakdowns. She has +2 distal pulses. She is in bed and not ambulating at this time. She is obviously weak. NEUROLOGIC: She is lethargic. Per the ER record, she was answering questions appropriately though. PSYCHIATRIC: She is otherwise cooperative and appropriate. DIAGNOSTIC STUDIES/LAB DATA: WBCs 9.3, RBCs 4.07, hemoglobin 12.8, hematocrit 38, platelets 89. Sodium 143, potassium 2.8, chloride 103, CO2 of 30. BUN 63, creatinine 1.32. GFR 39.7. Glucose 109. Calcium 8.8. Magnesium 2.1, total bilirubin 1.20, AST 25, ALT 17, alk phos 81. Troponin 0.09 and 0.07. CRP 90.06. BNP 469. Total protein 6.2, albumin 3.7, globulin 2.5. Imaging: CT of the brain shows no acute intracranial pathology. There is some moderate sinus mucosal inflammatory disease with air-fluid levels in the right maxillary sinus, within the sphenoethmoidal air cell, in the correct clinical setting may represent acute sinusitis. Chest x-ray shows low lung volumes, small bibasilar infiltrate suggestive of atelectasis. X-ray of the pelvis shows no evidence of fracture. IMPRESSION: Ms. Regalado is a 73-year-old female patient with a very complex medical history, who presents from the senior care today, status post several falls, found to be somewhat hypoxic and lethargic and also hypotensive. PLAN: The patient will be admitted. Diagnoses: 1. Hypotension. It does appear that this patient is acutely dehydrated. She does have an acute kidney injury as evidenced by her elevated BUN and creatinine which are above her baseline. Even though her BNP is slightly elevated, she does appear clinically dry. I have requested the ED provider give her a fluid bolus and see how she responds. We will hold her amlodipine and her hydrochlorothiazide and her Lasix for now. However, we will continue her metoprolol for rate control. She is on her EKG in atrial fibrillation, she is going in and out of rapid ventricular response; however, while I was at the bedside, her rate was in the 90s and then in the 120s and then back down into the 80s and 90s. I think if we can correct her dehydration, we may prevent her from going into sustained rapid ventricular response. We will continue to monitor her on telemetry and monitor her blood pressure closely. We will continue her on gentle IV hydration and monitor for fluid overload. She currently does not have any edema and her lungs are clear. Her chest x-ray does not exhibit any signs of fluid overload. I will, however, repeat an echocardiogram given her history of transcatheter aortic valve replacement in the past. She has not had an echo since 2018. We will repeat her echo to ensure there has been no gross changes at this time. 2. History of paroxysmal atrial fibrillation. Again, she seems to have some cardiac irritability secondary to her dehydration and we were trying to prevent her from going into rapid ventricular response. Continue her metoprolol at this time, repeat her echo. She is on Eliquis; however, given her bump in creatinine, I will reduce her Eliquis to 2.5 b.i.d. as opposed to 5 b.i.d. and again evaluate her bioprosthetic valve. 3. History of coronary artery disease. She does have a bumped troponin; however, it does appear to be demand ischemia. She does not have any complaints of chest pain on the way in and no acute EKG changes. We will check a third troponin to ensure it is not on rise. 4. Diabetes mellitus type 2. Her blood sugar is well controlled. We will continue her metformin. 5. History of restless leg syndrome. We will continue her Mirapex. 6. History of chronic pain. I will hold her tramadol for now given her lethargy. Continue her Lyrica and hold for any sedation. 7. History of chronic obstructive pulmonary disease. She does not appear to be in acute exacerbation. We will continue her home nebulizers and inhalers and titrate her oxygen to get her back to her baseline 3 L. 8. Hypokalemia. She has already received 40 mEq p.o. and 2 K-riders. We will recheck her potassium and follow her labs in the morning. Her magnesium is adequate at 2.1. 9. Demand ischemia. As noted above, her troponins are 0.09 and 0.07. The patient is not having any obvious chest pain or anginal equivalence. I think this is mediated by her hypotension and some hypoxia. We will check a third troponin. Her EKG is not showing any acute ST-segment changes. 10. Thrombocytosis. Her platelets are 89. Upon reviewing her labs in the past , she has had low platelets before in the low 100s. We will repeat her labs in the morning. Her platelets are still above 50. So, there is no need to stop her anticoagulation as this will be protective in terms of her stroke risk. However, given her elevated renal function and her low platelets, it would be safe to reduce her to renally dosed Eliquis at this time and continue to monitor her platelets. 11. Acute kidney injury. As stated above, she does appear to be very dehydrated. We will give gentle fluids as noted above and decrease her Eliquis and continue to monitor her renal function. 12. Diet: She can have heart-healthy diet with decaff. 13. Code status is DNR. 14. DVT prophylaxis: With Eliquis. DISPOSITION: Admitted to telemetry. The rest of the patient's course will be determined by further diagnostics, laboratories, and the other inputs from other providers as warranted during this admission. This case has been discussed with Dr. Nguyen, who is the attending and is in agreement with this plan of care. TIME SPENT: Sixty five minutes on admission planning, 50% of which was spent face- to-face with the patient and with ED providers developing admission plan of care. NILA CHANDRA NP [id number]/CPS #: [id number] MEMO
[2019-03-13] MEDS: Acetaminophen TAB* 325 MG PO PRN (18:24)
[2019-03-13] MEDS: traMADol TAB* 50 MG PO PRN (18:25)
[2019-03-13 18:31] LABS: Troponin I 0.06 ng/mL (<0.04)
--- NOTE | 2019-03-13 18:36 | ECHO ---
*[facility]* [place] [address] Fax #: [phone] Transthoracic Echocardiogram Patient: Elysia Regalado : 1945 Study Date: 03/13/2019 Age: 73 Gender: F HR: 91 bpm Height: 64 in /162.6 cm BSA: 1.96 m^2 Weight: 199.6 lb /90.7 kg BMI: 34.3 kg/m^2 *Us Administrative Law Judge: * Kaitlin Mosqueda [facility] *Referring Physician: * Fallon Arriola *Reading Physician: * Kendall Camp MD Indications: SOB. History: Atrial fibrillation. Congestive heart failure. Aortic stenosis, post prosthetic replacement. Cerebrovascular accident. Chronic obstructive pulmonary disease. Functional status: Not following treatment plan for sleep apnea. Risk factors: Current tobacco use. Hypertension. Diabetes mellitus. Obese. Dyslipidemia. Labs, prior tests, procedures, and surgery: Transvascular aortic valve replacement (2018). Conclusions Summary: - Left ventricle: The cavity size is below normal. Wall thickness is mildly increased. Systolic function is normal. The estimated ejection fraction is 55-60%. Wall motion is normal; there are no regional wall motion abnormalities. - Right ventricle: Systolic pressure is mildly increased. - Left atrium: The atrium is moderately dilated. - Right atrium: The atrium is moderately dilated. - Aortic valve: There is a bioprosthetic valve which apppears normally functioning. - Ascending aorta: The ascending aorta is moderately dilated. - Since the prior echocardiogram completed 01/29/18, pertinent changes are prior normal left ventricular size reported and prior mildly dilated ascending aorta reported. Study data: Transthoracic echocardiogram. Procedure: Transthoracic echocardiography was performed. Image quality was fair. Complete 2D, spectral Doppler, and color flow Doppler. Location: Bedside. Patient status: Inpatient. Patient room number: 447-2. Rhythm: Atrial fibrillation. Findings Left ventricle: The cavity size is below normal. Wall thickness is mildly increased. Systolic function is normal. The estimated ejection fraction is 55-60%. Wall motion is normal; there are no regional wall motion abnormalities. Left ventricular diastolic function parameters are indeterminate. Right ventricle: The cavity size is mildly dilated. The moderator band is in a normal position. Systolic function is low normal. Systolic pressure is mildly increased. Left atrium: The atrium is moderately dilated. Right atrium: The atrium is moderately dilated. Mitral valve: The Mitral valve annulus appears mildly calcified. The leaflets are mildly thickened. There is trace regurgitation. Aortic valve: Not well visualized. There is a bioprosthetic valve which apppears normally functioning. The leaflets are normal thickness. There is no evidence of stenosis. There is trace regurgitation. Tricuspid valve: The leaflets are normal thickness. There is mild-moderate regurgitation. Pulmonic valve: The leaflets are normal thickness. There is no evidence of stenosis. There is no significant regurgitation. Aorta: Aortic root: The aortic root is appears normal. Ascending aorta: The ascending aorta is moderately dilated. Pericardium: A prominent pericardial fat pad is present. There is no significant pericardial effusion. Pulmonary arteries: The main pulmonary artery is normal-sized. Systolic pressure is mildly increased. Systemic veins: Inferior vena cava: The vessel is dilated. There is (>= 50%) respiratory change in the IVC dimension. Measurements Left ventricle Value Ref Aortic valve Value Ref NATALIA, LAX (L) 3.5 cm 3.8 - 5.2 Doroteo diam, ED 1.8 cm ----- ESD, LAX 2.6 cm 2.2 - 3.5 Peak v, S 2.54 m/sec ----- FS, LAX 27 % 27 - 45 VTI, S 39.5 cm ----- PW, ED, LAX (H) 1.3 cm 0.6 - 0.9 Mean grad, S 12.0 mm Hg ----- FS 27 % 27 - 45 Peak grad, S 26.0 mm Hg ----- PW, ED (H) 1.3 cm 0.6 - 0.9 LVOT/AV, VTI ratio 0.48 ----- E', lat doroteo, TDI (L) 8.8 cm/sec >=10.0 RUBIA, VTI 1.51 cm^2 --- -- E/e', lat doroteo, 13 RUBIA, Vmax 1.35 cm^2 ----- TDI E', med doroteo, TDI 7.5 cm/sec >=7.0 Mitral valve Value Ref E/e', med doroteo, 16 Peak E 1.17 m/sec ----- TDI Peak A 0 m/sec ----- E', avg, TDI 8.2 cm/sec Decel time 232 ms ----- E/e', avg, TDI 14 <=14 Peak grad, D 5.5 mm Hg --- -- LVOT Value Ref Pulmonic valve Value Ref Diam, S 2.00 cm Peak v, S 0.99 m/sec ----- Area 3.1 cm^2 Peak grad, S 4.0 mm Hg ----- Peak levi, S 1.09 m/sec MA v, ED 1.16 m/sec ----- VTI, S 19.0 cm MA grad, ED 5 mm Hg ----- Mean grad, S 3 mm Hg SV 59 ml Tricuspid valve Value Ref SV/bsa 30 ml/m^2 TR peak v (H) 2.9 m/sec <=2.8 Peak RV-RA grad, S 34 mm Hg ----- Ventricular septum Value Ref IVS, ED (H) 1.2 cm 0.6 - 0.9 Aortic root Value Ref Root diam 2.8 cm <4.1 Right ventricle Value Ref NATALIA, LAX 3.5 cm Ascending aorta Value Ref NATALIA minor ax, A4C (H) 4.5 cm 1.9 - 3.5 AAo AP diam, S 4.3 cm ----- mid Pressure, S 42 mm Hg Aortic arch Value Ref Arch diam 2.0 cm ----- Left atrium Value Ref AP dim, ES (H) 4.50 cm 2.70 - Decending aorta Value Ref 3.80 Baldomero peak levi 0.67 m/sec ----- ML dim, A4C 3.9 cm SI dim, A4C 6.9 cm Pulmonary artery Value Ref Vol/bsa, ES, 1-p 34 ml/m^2 11 - 40 Pressure, S 42.0 mm Hg ----- A4C Vol/bsa, ES, A/L (H) 41 ml/m^2 16 - 34 Inferior vena cava Value Ref Diam 2.3 cm ----- Right atrium Value Ref SI dim, ES (H) 6.2 cm 3.4 - 5.3 ML dim, ES, A4C (H) 4.7 cm 2.6 - 4.4 SI dim, ES, A4C (H) 6.2 cm 3.4 - 5.3 SI dim/bsa, ES, (H) 3.2 cm/m^2 1.9 - 3.1 A4C Estimated RAP 8 mm Hg Legend: (L) and (H) bernadine values outside specified reference range. Prepared and electronically signed by Kendall Camp MD 03/13/2019 18:35
[2019-03-13] MEDS: Mometasone/Formoter 200/5 MDI INH SCH (20:31)
[2019-03-13] MEDS: Pramipexole TAB* 0.5 MG PO SCH (21:29)
[2019-03-13] MEDS: metFORMIN* 500 MG TAB PO SCH (21:30)
[2019-03-13] MEDS: Atorvastatin* 40 MG TAB PO SCH (21:30)
[2019-03-13] MEDS: Apixaban* 2.5 MG TAB PO SCH (21:30)
[2019-03-13] MEDS: METHYL SALICYLATE TOPICAL SCH (22:40)
[2019-03-13] MEDS: MENTHOL TOPICAL SCH (22:40)
[2019-03-14] MEDS: Acetaminophen TAB* 325 MG PO PRN ×3 (02:37→17:45)
[2019-03-14] MEDS: traMADol TAB* 50 MG PO PRN ×2 (04:00→18:05)
[2019-03-14 05:57] LABS: BUN/Creatinine Ratio 52.1 (8-20); Calcium 8.4 mg/dL (8.6-10.3); EGFR African American 54.1 (>60); EGFR Non-African American 44.7 (>60); Potassium 3.3 mmol/L (3.5-5.0)
[2019-03-14 06:01] LABS: ABS Lymphocytes 1.4 10^3/ul (1.0-4.8); ABS Monocytes 0.8 10^3/ul (0-0.8); ABS Neutrophils 4.5 10^3/ul (1.5-7.7); Eosinophil % 0.5 %; Lymphocyte % 20.3 %; Nucleated Red Blood Cells % 0.1
[2019-03-14] MEDS ORDERED: Potassium Chlor TAB* 20 MEQ TAB.ER PO ONE (07:28)
[2019-03-14] MEDS: Apixaban* 2.5 MG TAB PO SCH ×2 (07:40→21:51)
[2019-03-14] MEDS: Metoprolol Succinate XL TAB* 25 MG PO SCH (07:40)
[2019-03-14] MEDS: Magnesium Oxide TAB* 400 MG PO SCH (07:40)
[2019-03-14] MEDS: Pregabalin CAP(*) 100 MG PO SCH ×3 (07:41→21:01)
[2019-03-14] MEDS: Citalopram TAB* 10 MG PO SCH (07:41)
[2019-03-14] MEDS: metFORMIN* 500 MG TAB PO SCH ×2 (07:41→21:01)
[2019-03-14] MEDS: Nicotine PATCH 21 MG/24 HR* PATCH TRANSDERM SCH (07:41)
[2019-03-14] MEDS: Pramipexole TAB* 0.5 MG PO SCH ×2 (07:41→21:51)
[2019-03-14] MEDS: METHYL SALICYLATE TOPICAL SCH ×2 (07:42→21:12)
[2019-03-14] MEDS: MENTHOL TOPICAL SCH ×2 (07:42→21:12)
[2019-03-14] MEDS: SPIRIVA Respimat* (tiotropium) 2.5 mcg/inh Inhaler INH SCH (08:33)
[2019-03-14] MEDS: Mometasone/Formoter 200/5 MDI INH SCH ×2 (08:33→19:17)
--- NOTE | 2019-03-14 12:42 | PN ---
Subjective Date of Service: 03/14/19 Interval History: Ms. Regalado is feeling generally well this morning. She did not offer any complaints, but admitted to feeling SOB when asked. She has some epigastric pain , worse with deep breathing and with palpation. Denies CP, N/V. Good appetite. No concerns from nursing. Family History: Unchanged from Admission Social History: Unchanged from Admission Past Medical History: Unchanged from Admission Objective Active Medications: Acetaminophen (Tylenol Tab*) 650 mg PO Q6H PRN PAIN - MILD Albuterol (Ventolin 2.5 Mg/3 Ml Neb.Marjorie*) 2.5 mg INH Q4H PRN SOB/WHEEZING Albuterol (Ventolin Hfa Inhaler*) 2 puff INH Q4H PRN SOB/WHEEZING Apixaban (Eliquis*) 2.5 mg PO BID HI Atorvastatin Calcium (Lipitor*) 40 mg PO 2100 HI Buspirone HCl (Buspar Tab*) 5 mg PO TID PRN ANXIETY Calamine (Calamine Lotion*) 1 applic TOPICAL QID PRN ITCHING Citalopram Hydrobromide (Celexa Tab*) 10 mg PO DAILY [facility] Sodium Chloride (Ns 0.9% 1000 Ml) 1,000 mls @ 75 mls/hr IV PER RATE [facility] Magnesium Oxide (Magox 400 Tab*) 400 mg PO DAILY HI Metformin HCl (Glucophage*) 500 mg PO BID HI Metoprolol Succinate (Toprol Xl Tab*) 25 mg PO DAILY HI Mometasone Furoate/Formoterol Fumar (Dulera 200/5 Mdi*) 2 puff INH BID [facility]; Protocol Nicotine (Nicotine Patch 21 Mg/24 Hr*) 1 patch TRANSDERM DAILY [facility] Non-Formulary Medication (Methyl Salicylate/Menthol [Muscle Rub Cream]) 1 applic TOPICAL BID HI Pramipexole Dihydrochloride (Mirapex Tab*) 1 mg PO BID HI Pregabalin (Lyrica Cap(*)) 100 mg PO TID HI Tiotropium [place] (Spiriva Respimat 2.5 Mcg) 2 puff INH DAILY HI Tramadol HCl (Ultram*) 50 mg PO Q6H PRN severe pain Vital Signs - 8 hr 03/14/19 03/14/19 03/14/19 06:47 07:14 07:15 Temperature 97.8 F Pulse Rate 106 Respiratory 18 16 16 Rate Blood Pressure 107/64 (mmHg) O2 Sat by Pulse 90 Oximetry 03/14/19 03/14/19 03/14/19 07:41 08:36 11:15 Temperature 97.9 F Pulse Rate 60 46 Respiratory 16 22 16 Rate Blood Pressure 98/67 (mmHg) O2 Sat by Pulse 90 91 Oximetry Oxygen Devices in Use Now: Nasal Cannula - 5L Appearance: Elderly female sitting in bed, dyspneic, but in NAD Eyes: No Scleral Icterus Ears/Nose/Mouth/Throat: Mucous Membranes Moist Neck: NL Appearance and Movements; NL JVP, Trachea Midline Respiratory: Symmetrical Chest Expansion and Respiratory Effort, Clear to Auscultation Cardiovascular: NL Sounds; No Murmurs; No JVD, - - Irregular Abdominal: NL Sounds; No Tenderness; No Distention Extremities: No Edema Neurological: Alert and Oriented x 3 Lines/Tubes/Other Access: Clean, Dry and Intact Peripheral IV Nutrition: Taking PO's Result Diagrams: 03/13/19 09:39 03/14/19 04:53 Assess/Plan/Problems-Billing Assessment: Ms. Regalado is a 73 yo F with PMH of afib, COPD with chronic respiratory failure on 3L, CAD, DM, dCHF, CVAs, and TAVR; who presented to the ED d/t multiple falls and was found to be hypoxic and hypotensive. - Patient Problems (1) Hypotension Comment: - Suspect secondary to dehydration - Hold antihypertensives - Continue gentle IV hydration (2) Acute and chronic respiratory failure with hypoxia Code(s): J96.21 - ACUTE AND CHRONIC RESPIRATORY FAILURE WITH HYPOXIA Comment: - Requiring 5L NC, baseline is 3L - Unclear etiology; no evidence of COPD exacerbation - Wean oxygen as tolerated (3) Acute kidney injury Code(s): N17.9 - ACUTE KIDNEY FAILURE, UNSPECIFIED Comment: - Secondary to dehydration - Continue IVF (4) Thrombocytosis Comment: - Platelets slightly decreased from baseline, but no bleeding concerns - Recheck CBC in AM (5) Paroxysmal atrial fibrillation Code(s): I48.0 - PAROXYSMAL ATRIAL FIBRILLATION Comment: - Now rate controlled but had short episodes of RVR on admission - Continue metoprolol, Eliquis (6) CAD (coronary artery disease) Code(s): I25.10 - ATHSCL HEART DISEASE OF [id number] CORONARY ARTERY W/O ANG PCTRS Comment: - Trop elevated on admission, now trending down; suspect demand ischemia - Continue metoprolol, atorvastatin (7) Diabetes Code(s): E11.9 - TYPE 2 DIABETES MELLITUS WITHOUT COMPLICATIONS Comment: - Good glucose control - Continue metformin (8) COPD (chronic obstructive pulmonary disease) Code(s): J44.9 - CHRONIC OBSTRUCTIVE PULMONARY DISEASE, UNSPECIFIED Comment: - No evidence of exacerbation - Continue Dulera, Spiriva (9) HLD (hyperlipidemia) Code(s): E78.5 - HYPERLIPIDEMIA, UNSPECIFIED Comment: - Continue atorvastatin (10) Restless leg syndrome Comment: - Continue Mirapex, Lyrica (11) DVT prophylaxis Comment: - Eliquis (12) Full code status Code(s): Z78.9 - OTHER SPECIFIED HEALTH STATUS Comment: Status and Disposition: Inpatient. Anticipate d/c back to [place] when medically stable. Attending: Omer Sawyer
[2019-03-14 17:54] LABS: Hematocrit 38 % (35-47); Hemoglobin 12.7 g/dL (12.0-16.0); Mean Corpuscular HGB Conc 34 g/dL (31-36); Mean Corpuscular Hemoglobin 32 pg (27-31); Mean Corpuscular Volume 93 fL (80-97); Mean Platelet Volume 10.8 fL (7.4-10.4); Platelet Count 83 10^3/uL (150-450); Red Blood Count 4.04 10^6 /uL (3.70-4.87); Red Cell Distribution Width 14 % (10-15); White Blood Count 7.3 10^3/uL (3.5-10.8)
[2019-03-14] MEDS ORDERED: Diltiazem IV push/loading dose 5 MG/ML 5 ML vial (25 mg) IV SLOW PU ONE (18:36)
[2019-03-14] MEDS ORDERED: Diltiazem IV push/loading dose 5 MG/ML 5 ML vial (25 mg) ONE (18:38)
[2019-03-14] MEDS ORDERED: Furosemide IV* 10 MG/ML VIAL (40 MG) IV SLOW PU ONE (18:40)
[2019-03-14] MEDS ORDERED: Furosemide IV* 10 MG/ML VIAL (40 MG) ONE (18:41)
[2019-03-14] MEDS ORDERED: Diltiazem IV BAG* D5W Premix 125 MG/125 ML BAG IV SCH (19:00)
[2019-03-14 20:18] LABS: Urine Appearance Turbid; Urine Bacteria 1+ (Absent); Urine Bilirubin Negative (Negative); Urine Blood 2+ (Negative); Urine Color Amber; Urine Glucose Negative (Negative); Urine Ketones Negative (Negative); Urine Nitrite Positive (Negative); Urine Protein 2+(100 mg/dL) (Negative); Urine Red Blood Cell 3+(>10/hpf) (Absent); Urine Specific Gravity 1.012 (1.010-1.030); Urine Urobilinogen Negative (Negative); Urine White Blood Cell 3+(>20/hpf) (Absent)
[2019-03-14] MEDS ORDERED: Aztreonam (*) 1 GM in NS 0.9% 50 ML* 50 ML IVPB SCH (21:00)
[2019-03-14] MEDS: Atorvastatin* 40 MG TAB PO SCH (21:01)
[2019-03-14] MEDS: KCL 10 MEQ/50 ML IVPREMIX* 10 MEQ/50 ML BAG IV SCH ×2 (21:12→22:13)
[2019-03-14] MEDS: Aztreonam (*) 1 GM in NS 0.9% 50 ML* 50 ML IVPB SCH ×2 (22:49→22:53)
[2019-03-15 04:40] LABS: ABS Lymphocytes 2.1 10^3/ul (1.0-4.8); ABS Monocytes 0.9 10^3/ul (0-0.8); ABS Neutrophils 5.1 10^3/ul (1.5-7.7); Eosinophil % 0.3 %; Hematocrit 37 % (35-47); Hemoglobin 12.5 g/dL (12.0-16.0); Lymphocyte % 25.8 %; Mean Corpuscular HGB Conc 34 g/dL (31-36); Mean Corpuscular Hemoglobin 31 pg (27-31); Mean Corpuscular Volume 93 fL (80-97); Mean Platelet Volume 10.5 fL (7.4-10.4); Platelet Count 95 10^3/uL (150-450); Red Blood Count 3.99 10^6 /uL (3.70-4.87); Red Cell Distribution Width 14 % (10-15); White Blood Count 8.2 10^3/uL (3.5-10.8)
[2019-03-15 04:55] LABS: Calcium 8.3 mg/dL (8.6-10.3); EGFR African American 67.7 (>60); EGFR Non-African American 55.9 (>60); Potassium 3.3 mmol/L (3.5-5.0)
[2019-03-15 06:19] LABS: Magnesium 1.8 mg/dL (1.9-2.7)
[2019-03-15] MEDS: KCL 10 MEQ/50 ML IVPREMIX* 10 MEQ/50 ML BAG IV SCH ×2 (06:28→08:08)
[2019-03-15] MEDS: SPIRIVA Respimat* (tiotropium) 2.5 mcg/inh Inhaler INH SCH (07:22)
[2019-03-15] MEDS: Mometasone/Formoter 200/5 MDI INH SCH ×2 (07:22→19:11)
[2019-03-15] MEDS: Aztreonam (*) 1 GM in NS 0.9% 50 ML* 50 ML IVPB SCH ×3 (07:48→23:14)
[2019-03-15] MEDS ORDERED: Potassium Chlor TAB* 20 MEQ TAB.ER PO ONE ×2 (08:03→12:00)
[2019-03-15] MEDS ORDERED: Magnesium Sulfate 2 GM IV* 2 GM/50 ML BAG IVPB ONE (08:04)
[2019-03-15] MEDS ORDERED: Furosemide IV* 10 MG/ML 2 ML VIAL (20 MG) IV ONE (08:57)
[2019-03-15] MEDS: Pregabalin CAP(*) 100 MG PO SCH ×3 (09:08→21:17)
[2019-03-15] MEDS: Citalopram TAB* 10 MG PO SCH (09:09)
[2019-03-15] MEDS: Apixaban* 2.5 MG TAB PO SCH ×2 (09:09→21:17)
[2019-03-15] MEDS: metFORMIN* 500 MG TAB PO SCH ×2 (09:09→21:17)
[2019-03-15] MEDS: Magnesium Oxide TAB* 400 MG PO SCH (09:09)
[2019-03-15] MEDS: Nicotine PATCH 21 MG/24 HR* PATCH TRANSDERM SCH (09:09)
[2019-03-15] MEDS: Potassium Chlor TAB* 20 MEQ TAB.ER PO SCH ×2 (09:09→21:18)
[2019-03-15] MEDS: Metoprolol Succinate XL TAB* 25 MG PO SCH (09:47)
[2019-03-15] MEDS: Pramipexole TAB* 0.5 MG PO SCH ×2 (09:47→21:18)
[2019-03-15] MEDS: MENTHOL TOPICAL SCH (09:55)
[2019-03-15] MEDS: METHYL SALICYLATE TOPICAL SCH (09:55)
[2019-03-15] MEDS ORDERED: Digoxin IV* 0.5 MG/2 ML AMP (0.25 MG/ML) IV SLOW PU ONE (10:13)
--- NOTE | 2019-03-15 11:03 | PN ---
Subjective Date of Service: 03/15/19 Interval History: Ms. Regalado is feeling better this morning. She is awake and able to participate in normal conversation. She does not remember the events from yesterday evening. She was surprised to hear she is in the ICU. Offers no complaints. Denies CP, SOB, N/V. She does confirm that her friend, Manish, is her HCP. Patient initially placed on BiPAP last night on arrival to ICU but she did not tolerate that and was transitioned to high flow NC. Now titrated down to 10L. Cardizem drip was stopped around 0100 this morning with HR consistently 80-90s. Nursing reporting increasing tachycardia with soft pressures late this morning. Tele: afib 80-90s Family History: Unchanged from Admission Social History: Unchanged from Admission Past Medical History: Unchanged from Admission Objective Active Medications: Acetaminophen (Tylenol Tab*) 650 mg PO Q6H PRN PAIN - MILD Albuterol (Ventolin 2.5 Mg/3 Ml Neb.Marjorie*) 2.5 mg INH Q4H PRN SOB/WHEEZING Albuterol (Ventolin Hfa Inhaler*) 2 puff INH Q4H PRN SOB/WHEEZING Apixaban (Eliquis*) 2.5 mg PO BID HI Atorvastatin Calcium (Lipitor*) 40 mg PO 2100 HI Buspirone HCl (Buspar Tab*) 5 mg PO TID PRN ANXIETY Calamine (Calamine Lotion*) 1 applic TOPICAL QID PRN ITCHING Citalopram Hydrobromide (Celexa Tab*) 10 mg PO DAILY HI Aztreonam 1 gm/ Sodium (Chloride) 50 mls @ 200 mls/hr IVPB 0730,1530,2330 HI Magnesium Oxide (Magox 400 Tab*) 400 mg PO DAILY HI Metformin HCl (Glucophage*) 500 mg PO BID HI Metoprolol Succinate (Toprol Xl Tab*) 25 mg PO DAILY HI Mometasone Furoate/Formoterol Fumar (Dulera 200/5 Mdi*) 2 puff INH BID HI; Protocol Nicotine (Nicotine Patch 21 Mg/24 Hr*) 1 patch TRANSDERM DAILY HI Non-Formulary Medication (Methyl Salicylate/Menthol [Muscle Rub Cream]) 1 applic TOPICAL BID HI Potassium Chloride (Klor Con Er Tab*) 20 meq PO BID HI Potassium Chloride (Klor Con Er Tab*) 20 meq PO ONCE ONE Pramipexole Dihydrochloride (Mirapex Tab*) 1 mg PO BID HI Pregabalin (Lyrica Cap(*)) 100 mg PO TID HI Tiotropium [place] (Spiriva Respimat 2.5 Mcg) 2 puff INH DAILY HI Tramadol HCl (Ultram*) 50 mg PO Q6H PRN severe pain Vital Signs - 8 hr 03/15/19 03/15/19 03/15/19 03:00 03:01 03:31 Temperature 97.2 F Pulse Rate 80 85 Respiratory 32 24 22 Rate Blood Pressure 97/67 89/65 (mmHg) O2 Sat by Pulse 98 97 Oximetry 03/15/19 03/15/19 03/15/19 04:00 04:01 04:04 Temperature Pulse Rate 76 98 Respiratory 23 19 36 Rate Blood Pressure 117/80 (mmHg) O2 Sat by Pulse 86 97 Oximetry 03/15/19 03/15/19 03/15/19 04:18 04:31 05:00 Temperature Pulse Rate 93 89 Respiratory 14 21 Rate Blood Pressure 109/57 (mmHg) O2 Sat by Pulse 97 88 97 Oximetry 03/15/19 03/15/19 03/15/19 05:01 05:30 06:00 Temperature Pulse Rate 85 86 84 Respiratory 24 22 22 Rate Blood Pressure 81/67 96/64 91/64 (mmHg) O2 Sat by Pulse 97 96 95 Oximetry 03/15/19 03/15/19 03/15/19 06:30 07:00 07:01 Temperature Pulse Rate 82 80 82 Respiratory 25 10 17 Rate Blood Pressure 104/60 121/76 (mmHg) O2 Sat by Pulse 97 96 94 Oximetry 03/15/19 03/15/19 03/15/19 07:18 07:22 07:31 Temperature Pulse Rate 97 95 Respiratory 29 23 Rate Blood Pressure 93/63 (mmHg) O2 Sat by Pulse 97 102 95 Oximetry 03/15/19 03/15/19 03/15/19 07:48 08:00 08:01 Temperature 97.1 F Pulse Rate 93 97 Respiratory 20 24 Rate Blood Pressure 100/61 (mmHg) O2 Sat by Pulse 95 95 Oximetry 03/15/19 03/15/19 03/15/19 09:00 09:02 09:07 Temperature Pulse Rate 70 91 82 Respiratory 23 15 20 Rate Blood Pressure 78/38 98/67 (mmHg) O2 Sat by Pulse 92 93 93 Oximetry 03/15/19 03/15/19 10:00 10:01 Temperature Pulse Rate 95 104 Respiratory 20 13 Rate Blood Pressure 100/72 (mmHg) O2 Sat by Pulse 93 94 Oximetry Oxygen Devices in Use Now: High Flow Nasal Cannula - 10L Appearance: Elderly female sitting in bed in NAD Ears/Nose/Mouth/Throat: Mucous Membranes Moist Neck: NL Appearance and Movements; NL JVP, Trachea Midline Respiratory: Symmetrical Chest Expansion and Respiratory Effort, Clear to Auscultation Cardiovascular: NL Sounds; No Murmurs; No JVD Extremities: No Edema Neurological: Alert and Oriented x 3 Lines/Tubes/Other Access: Clean, Dry and Intact Peripheral IV Nutrition: Taking PO's Result Diagrams: 03/15/19 04:23 03/15/19 04:23 Assess/Plan/Problems-Billing Assessment: Ms. Regalado is a 73 yo F with PMH of afib, COPD with chronic respiratory failure on 3L, CAD, DM, dCHF, CVAs, and TAVR; who presented to the ED d/t multiple falls and was found to be hypoxic and hypotensive. - Patient Problems (1) Atrial fibrillation with rapid ventricular response Code(s): I48.91 - UNSPECIFIED ATRIAL FIBRILLATION Comment: - Went into RVR last yesterday secondary to fluid overload, possibly also from infection - Cardizem drip stopped overnight; rate controlled this morning in 80-90s, but later this morning increasing back up to 120s - Unable to titrate up BB d/t soft pressures - Continue metoprolol; give digoxin x1 and will reassess need for ongoing dig based on response (2) Acute and chronic respiratory failure with hypoxia Code(s): J96.21 - ACUTE AND CHRONIC RESPIRATORY FAILURE WITH HYPOXIA Comment: - Went into respiratory distress last night secondary to RVR and fluid overload ; now requiring 10L NC; baseline is 3L - Wean oxygen as tolerated (3) UTI (urinary tract infection) Comment: - Urine culture pending - Multiple abx allergies limiting options - Continue aztreonam (4) Hypokalemia Code(s): E87.6 - HYPOKALEMIA Comment: - Replete again today and recheck in AM (5) Hypotension Comment: - Suspect secondary to dehydration and third spacing - Hold antihypertensives (6) Acute kidney injury Code(s): N17.9 - ACUTE KIDNEY FAILURE, UNSPECIFIED Comment: - Resolving - Secondary to hypovolemia (7) Thrombocytosis Comment: - Platelets slightly decreased from last admission, but no acute bleeding concerns - Unclear etiology - Continue to trend (8) CAD (coronary artery disease) Code(s): I25.10 - ATHSCL HEART DISEASE OF [place] CORONARY ARTERY W/O ANG PCTRS Comment: - Trop elevated on admission, now trending down; suspect demand ischemia - Continue metoprolol, atorvastatin (9) Diabetes Code(s): E11.9 - TYPE 2 DIABETES MELLITUS WITHOUT COMPLICATIONS Comment: - Good glucose control - Continue metformin (10) COPD (chronic obstructive pulmonary disease) Code(s): J44.9 - CHRONIC OBSTRUCTIVE PULMONARY DISEASE, UNSPECIFIED Comment: - No evidence of exacerbation - Continue Dulera, Spiriva (11) HLD (hyperlipidemia) Code(s): E78.5 - HYPERLIPIDEMIA, UNSPECIFIED Comment: - Continue atorvastatin (12) Restless leg syndrome Comment: - Continue Mirapex, Lyrica (13) DVT prophylaxis Comment: - Eliquis (14) DNR (do not resuscitate) Comment: Status and Disposition: Inpatient. Anticipate d/c back to [place] when medically stable. Attending: Omer Sawyer
[2019-03-15] MEDS: Digoxin IV* 0.5 MG/2 ML AMP (0.25 MG/ML) IV SLOW PU SCH ×2 (15:00→21:17)
[2019-03-15] MEDS ORDERED: Furosemide IV* 10 MG/ML VIAL (40 MG) IV SLOW PU ONE (18:40)
[2019-03-15] MEDS: traMADol TAB* 50 MG PO PRN (19:24)
[2019-03-15] MEDS: Analgesic BALM* 114 GM TOPICAL SCH (21:16)
[2019-03-15] MEDS: Atorvastatin* 40 MG TAB PO SCH (21:17)
[2019-03-16] MEDS: Nicotine Patch Removal NOTE PATCH OFF SCH ×2 (01:06→20:25)
[2019-03-16] MEDS: traMADol TAB* 50 MG PO PRN ×2 (02:39→09:43)
[2019-03-16] MEDS: Digoxin IV* 0.5 MG/2 ML AMP (0.25 MG/ML) IV SLOW PU SCH (02:39)
[2019-03-16 05:50] LABS: ABS Lymphocytes 1.8 10^3/ul (1.0-4.8); ABS Monocytes 0.8 10^3/ul (0-0.8); ABS Neutrophils 4.1 10^3/ul (1.5-7.7); Eosinophil % 0.6 %; Hematocrit 37 % (35-47); Hemoglobin 12.2 g/dL (12.0-16.0); Lymphocyte % 26.2 %; Mean Corpuscular HGB Conc 33 g/dL (31-36); Mean Corpuscular Hemoglobin 31 pg (27-31); Mean Corpuscular Volume 94 fL (80-97); Mean Platelet Volume 10.2 fL (7.4-10.4); Platelet Count 111 10^3/uL (150-450); Red Blood Count 3.95 10^6 /uL (3.70-4.87); Red Cell Distribution Width 14 % (10-15); White Blood Count 6.7 10^3/uL (3.5-10.8)
[2019-03-16 06:09] LABS: Calcium 8.5 mg/dL (8.6-10.3); EGFR African American 99.8 (>60); EGFR Non-African American 82.5 (>60); Potassium 4.5 mmol/L (3.5-5.0)
[2019-03-16] MEDS: Mometasone/Formoter 200/5 MDI INH SCH ×2 (07:34→20:00)
[2019-03-16] MEDS: SPIRIVA Respimat* (tiotropium) 2.5 mcg/inh Inhaler INH SCH (07:34)
[2019-03-16] MEDS: Potassium Chlor TAB* 20 MEQ TAB.ER PO SCH ×2 (08:01→20:25)
[2019-03-16] MEDS: Pramipexole TAB* 0.5 MG PO SCH ×2 (08:01→20:23)
[2019-03-16] MEDS: Aztreonam (*) 1 GM in NS 0.9% 50 ML* 50 ML IVPB SCH ×3 (08:01→23:30)
[2019-03-16] MEDS: Pregabalin CAP(*) 100 MG PO SCH ×3 (08:01→20:23)
[2019-03-16] MEDS: Citalopram TAB* 10 MG PO SCH (08:02)
[2019-03-16] MEDS: metFORMIN* 500 MG TAB PO SCH ×2 (08:02→20:24)
[2019-03-16] MEDS: Metoprolol Succinate XL TAB* 25 MG PO SCH (08:02)
[2019-03-16] MEDS: Digoxin TAB* 0.125 MG PO SCH (08:02)
[2019-03-16] MEDS: Magnesium Oxide TAB* 400 MG PO SCH (08:02)
[2019-03-16] MEDS: Nicotine PATCH 21 MG/24 HR* PATCH TRANSDERM SCH (08:03)
[2019-03-16] MEDS: Apixaban* 2.5 MG TAB PO SCH (08:03)
[2019-03-16] MEDS: Analgesic BALM* 114 GM TOPICAL SCH ×2 (09:06→20:25)
--- NOTE | 2019-03-16 10:57 | PN ---
Subjective Date of Service: 03/16/19 Interval History: Ms. Regalado is feeling much better today and is in good spirits. She is hopeful to be transferred out of the ICU today. She denies SOB or CP. No dizziness, [place], N/V. Good appetite. Nursing reported RLQ tenderness after my exam this morning. Family History: Unchanged from Admission Social History: Unchanged from Admission Past Medical History: Unchanged from Admission Objective Active Medications: Acetaminophen (Tylenol Tab*) 650 mg PO Q6H PRN PAIN - MILD Albuterol (Ventolin 2.5 Mg/3 Ml Neb.Marjorie*) 2.5 mg INH Q4H PRN SOB/WHEEZING Albuterol (Ventolin Hfa Inhaler*) 2 puff INH Q4H PRN SOB/WHEEZING Apixaban (Eliquis*) 2.5 mg PO BID HI Atorvastatin Calcium (Lipitor*) 40 mg PO 2100 HI Buspirone HCl (Buspar Tab*) 5 mg PO TID PRN ANXIETY Calamine (Calamine Lotion*) 1 applic TOPICAL QID PRN ITCHING Citalopram Hydrobromide (Celexa Tab*) 10 mg PO DAILY HI Digoxin (Lanoxin Tab*) 0.125 mg PO DAILY HI Aztreonam 1 gm/ Sodium (Chloride) 50 mls @ 200 mls/hr IVPB 0730,1530,2330 HI Magnesium Oxide (Magox 400 Tab*) 400 mg PO DAILY HI Metformin HCl (Glucophage*) 500 mg PO BID HI Metoprolol Succinate (Toprol Xl Tab*) 12.5 mg PO DAILY HI Mometasone Furoate/Formoterol Fumar (Dulera 200/5 Mdi*) 2 puff INH BID HI; Protocol Multi-Ingredient Liniment/Rub (German Stark*) 1 applic TOPICAL BID HI Nicotine (Nicotine Patch 21 Mg/24 Hr*) 1 patch TRANSDERM DAILY HI Potassium Chloride (Klor Con Er Tab*) 20 meq PO BID HI Pramipexole Dihydrochloride (Mirapex Tab*) 1 mg PO BID HI Pregabalin (Lyrica Cap(*)) 100 mg PO TID HI Tiotropium [place] (Spiriva Respimat 2.5 Mcg) 2 puff INH DAILY HI Tramadol HCl (Ultram*) 50 mg PO Q6H PRN severe pain Vital Signs - 8 hr 03/16/19 03/16/19 03/16/19 03:00 03:01 04:00 Temperature 98.4 F Pulse Rate 89 95 85 Respiratory 25 28 26 Rate Blood Pressure 99/71 101/71 (mmHg) O2 Sat by Pulse 90 93 89 Oximetry 03/16/19 03/16/19 03/16/19 05:00 06:00 07:00 Temperature Pulse Rate 86 85 90 Respiratory 23 23 23 Rate Blood Pressure 106/71 109/75 101/65 (mmHg) O2 Sat by Pulse 95 92 100 Oximetry 03/16/19 03/16/19 03/16/19 07:01 07:12 07:13 Temperature 98.2 F Pulse Rate 81 Respiratory 24 23 Rate Blood Pressure (mmHg) O2 Sat by Pulse 100 Oximetry 03/16/19 03/16/19 03/16/19 07:29 08:00 08:01 Temperature 97.0 F Pulse Rate 83 80 Respiratory 19 19 Rate Blood Pressure 108/70 (mmHg) O2 Sat by Pulse 94 94 Oximetry 03/16/19 03/16/19 03/16/19 08:02 09:00 09:01 Temperature Pulse Rate 78 101 89 Respiratory 21 22 Rate Blood Pressure 104/65 (mmHg) O2 Sat by Pulse 90 92 Oximetry 03/16/19 03/16/19 09:40 10:00 Temperature Pulse Rate 87 Respiratory 22 21 Rate Blood Pressure 98/62 (mmHg) O2 Sat by Pulse 92 Oximetry Oxygen Devices in Use Now: Nasal Cannula - 4L Appearance: Elderly female sitting in bed in NAD Ears/Nose/Mouth/Throat: Mucous Membranes Moist Neck: NL Appearance and Movements; NL JVP, Trachea Midline Respiratory: Symmetrical Chest Expansion and Respiratory Effort, Clear to Auscultation Cardiovascular: NL Sounds; No Murmurs; No JVD, - - Irregular rhythm Abdominal: NL Sounds; No Tenderness; No Distention Extremities: No Edema Neurological: Alert and Oriented x 3 Lines/Tubes/Other Access: Clean, Dry and Intact Peripheral IV Nutrition: Taking PO's Result Diagrams: 03/16/19 05:35 03/16/19 05:35 Assess/Plan/Problems-Billing Assessment: Ms. Regalado is a 73 yo F with PMH of afib, COPD with chronic respiratory failure on 3L, CAD, DM, dCHF, CVAs, and TAVR; who presented to the ED d/t multiple falls and was found to be hypoxic and hypotensive. - Patient Problems (1) Atrial fibrillation with rapid ventricular response Code(s): I48.91 - UNSPECIFIED ATRIAL FIBRILLATION Comment: - Went into RVR 03/14/19 secondary to fluid overload, infection; achieved rate control with diltiazem drip - Unable to titrate up BB d/t soft pressures, so dig was added with good response - Will need to have dig level in 1 week - Continue digoxin; metoprolol decreased from 25mg to 12.5mg d/t soft pressures (2) Acute and chronic respiratory failure with hypoxia Code(s): J96.21 - ACUTE AND CHRONIC RESPIRATORY FAILURE WITH HYPOXIA Comment: - Went into respiratory distress 03/14/19 secondary to RVR and fluid overload; now down to 4L; baseline is 3L - Wean oxygen as tolerated (3) UTI (urinary tract infection) Comment: - Urine culture pending - Multiple abx allergies limiting options - Continue aztreonam (4) Hypokalemia Code(s): E87.6 - HYPOKALEMIA Comment: - Resolved (5) Hypotension Comment: - Suspect secondary to dehydration and third spacing - Hold antihypertensives (6) Acute kidney injury Code(s): N17.9 - ACUTE KIDNEY FAILURE, UNSPECIFIED Comment: - Resolved - Secondary to hypovolemia (7) Thrombocytosis Comment: - Platelets slightly decreased from last admission, but no acute bleeding concerns - Now trending up; suspect low platelets on admission were secondary to infection - Continue to trend (8) CAD (coronary artery disease) Code(s): I25.10 - ATHSCL HEART DISEASE OF [place] CORONARY ARTERY W/O ANG PCTRS Comment: - Trop elevated on admission, peaked at 0.07; suspect demand ischemia - Continue metoprolol, atorvastatin (9) Diabetes Code(s): E11.9 - TYPE 2 DIABETES MELLITUS WITHOUT COMPLICATIONS Comment: - Good glucose control - Continue metformin (10) COPD (chronic obstructive pulmonary disease) Code(s): J44.9 - CHRONIC OBSTRUCTIVE PULMONARY DISEASE, UNSPECIFIED Comment: - No evidence of exacerbation - Continue Dulera, Spiriva (11) HLD (hyperlipidemia) Code(s): E78.5 - HYPERLIPIDEMIA, UNSPECIFIED Comment: - Continue atorvastatin (12) Restless leg syndrome Comment: - Continue Mirapex, Lyrica (13) DVT prophylaxis Comment: - Eliquis (14) DNR (do not resuscitate) Comment: Status and Disposition: Inpatient. Anticipate d/c back to [place] when medically stable. Attending: Omer Sawyer
[2019-03-16] MEDS: Apixaban* 5 MG TAB PO SCH (20:24)
[2019-03-16] MEDS: Atorvastatin* 40 MG TAB PO SCH (20:24)
[2019-03-17 06:21] LABS: ABS Eosinophils 0.1 10^3/ul (0-0.6); ABS Monocytes 0.6 10^3/ul (0-0.8); ABS Neutrophils 3.3 10^3/ul (1.5-7.7); Eosinophil % 1.2 %; Hematocrit 37 % (35-47); Hemoglobin 12.1 g/dL (12.0-16.0); Lymphocyte % 33.9 %; Mean Corpuscular HGB Conc 33 g/dL (31-36); Mean Corpuscular Hemoglobin 31 pg (27-31); Mean Corpuscular Volume 94 fL (80-97); Mean Platelet Volume 9.5 fL (7.4-10.4); Nucleated Red Blood Cells % 0.1; Platelet Count 128 10^3/uL (150-450); Red Blood Count 3.92 10^6 /uL (3.70-4.87); Red Cell Distribution Width 14 % (10-15)
[2019-03-17 06:37] LABS: BUN/Creatinine Ratio 43.1 (8-20); Calcium 8.8 mg/dL (8.6-10.3); EGFR African American 96.6 (>60); EGFR Non-African American 79.9 (>60); Potassium 4.6 mmol/L (3.5-5.0)
[2019-03-17] MEDS: traMADol TAB* 50 MG PO PRN (07:27)
[2019-03-17] MEDS: Analgesic BALM* 114 GM TOPICAL SCH ×2 (07:28→21:07)
[2019-03-17] MEDS: SPIRIVA Respimat* (tiotropium) 2.5 mcg/inh Inhaler INH SCH (07:50)
[2019-03-17] MEDS: Mometasone/Formoter 200/5 MDI INH SCH ×2 (07:50→20:33)
[2019-03-17] MEDS ORDERED: Pneumococcal *Vac Polyvalent 0.5 ML VIAL IM ONE (09:00)
[2019-03-17] MEDS ORDERED: Influenza VAC *QUAD* 2019-20* 0.5 ML SYRINGE IM ONE (09:00)
[2019-03-17] MEDS: Digoxin TAB* 0.125 MG PO SCH (09:40)
[2019-03-17] MEDS: Citalopram TAB* 10 MG PO SCH (09:40)
[2019-03-17] MEDS: Pramipexole TAB* 0.5 MG PO SCH ×2 (09:40→21:01)
[2019-03-17] MEDS: metFORMIN* 500 MG TAB PO SCH ×2 (09:42→21:01)
[2019-03-17] MEDS: Magnesium Oxide TAB* 400 MG PO SCH (09:42)
[2019-03-17] MEDS: Apixaban* 5 MG TAB PO SCH ×2 (09:42→21:01)
[2019-03-17] MEDS: Potassium Chlor TAB* 20 MEQ TAB.ER PO SCH ×2 (09:42→21:01)
[2019-03-17] MEDS: Nicotine PATCH 21 MG/24 HR* PATCH TRANSDERM SCH (09:43)
[2019-03-17] MEDS: Metoprolol Succinate XL TAB* 25 MG PO SCH (09:43)
[2019-03-17] MEDS: Pregabalin CAP(*) 100 MG PO SCH ×3 (09:47→21:01)
[2019-03-17] MEDS: Aztreonam (*) 1 GM in NS 0.9% 50 ML* 50 ML IVPB SCH ×2 (11:14→17:27)
[2019-03-17] MEDS: Acetaminophen TAB* 325 MG PO PRN (15:55)
--- NOTE | 2019-03-17 16:23 | DS ---
ADDENDUM NOW INCLUDED ON THIS REPORT DATE OF ADMISSION: 03/13/2019. DATE OF DISCHARGE: 03/18/2019. ATTENDING PHYSICIAN: Dr. Umu Lala * (dictated by STEVE Orlando). PRIMARY CARE PHYSICIAN: Attending at [facility]. PRIMARY DIAGNOSES: 1. Atrial fibrillation with rapid ventricular response. 2. UTI. 3. Hypertension secondary to hypovolemia. 4. Hypokalemia, resolved. SECONDARY DIAGNOSES: 1. COPD on 3 liters of oxygen continuously. 2. Paroxysmal atrial fibrillation. 3. Depression and anxiety. 4. Restless leg syndrome. 5. Hypothyroidism. 6. Hypertension. 7. CAD with history of CT. 8. Hyperlipidemia. 9. Diabetes mellitus type 2. 10. Diastolic heart failure. 11. Seizure disorder. 12. Chronic pain. 13. GERD. 14. Peripheral vascular disease. 15. Gout. 16. Aortic stenosis, status post TAVR. 17. History of CVA's. PERTINENT STUDIES: 03/13/2019, transthoracic echocardiogram with ejection fraction of 55 to 60 percent. No regional wall motion abnormalities. HISTORY OF PRESENT ILLNESS/HOSPITAL COURSE: Elysia Regalado is a 73-year-old white female with a past medical history significant for diabetes, COPD on 3 liters oxygen, and paroxysmal atrial fibrillation who presented to the emergency department due to frequent falls from [facility] where she is a subacute rehab patient. She was found to be hypoxic and requiring more oxygen. Please see additional details in the admitting history and physical by Fallon Arriola NP. The patient was found to be hypotensive likely due to hypovolemia. She had acute kidney injury as well as hypokalemia. All of these have overall resolved during her hospital stay. She was given fluids which did resolve her hypotension overall; however, this did appear to cause rapid ventricular rate of her atrial fibrillation. This improved with Digoxin. Increasing beta blockers was avoided due to frequent hypotension. Though her hypotension was improving, she still overall had lower blood pressures and her home Amlodipine, Lasix, and Hydrochlorothiazide were held. After over two days on Digoxin, she had no further rapid ventricular rates and telemetry showed atrial fibrillation which was rate controlled. Additionally, the patient was found to have a UTI which had a positive culture for klebsiella aerogenes. The patient is known to have an ALLERGY TO CEPHALOSPORINS, CARBAPENEMS, AND BACTRIM. The patient tells me that she has had anaphylaxis as a reaction to a medication, but, however, she has no recollection of which medication this was; therefore, using caution, the patient was given Aztreonam. On the day of discharge, the patient has been afebrile during the entirety of her hospital stay. She had no leukocytosis as well. She does continue to have dysuria, although this is improving. She denies suprapubic pain and low back pain. She has no chest pain, difficulty breathing, or palpitations. PHYSICAL EXAMINATION ON THE DAY OF DISCHARGE: General: Obese, elderly, white female sitting upright in bed, appearing comfortable and in no acute distress. Eyes: PERRLA. Sclerae anicteric. ENT: Mucous membranes moist. Lungs: Faint crackles in bilateral lung bases. Cardio: Irregular rate and irregular rhythm without appreciable murmurs, rubs, or gallops. Abdomen: Soft, nontender , nondistended. No suprapubic tenderness. Extremities: No clubbing, cyanosis , or edema. Neuro: The patient is alert and oriented times three. No focal deficits. DISCHARGE PLAN: The patient should have a repeat Digoxin level in a week, as well as a BMP. The patient's blood pressure should be continued to be monitored , especially considering two antihypertensives were discontinued during this hospitalization. If the patient begins having lower extremity edema or other evidence for fluid overload, it may be of benefit to restart her Lasix; however , at this time it did not appear necessary considering the patient has diastolic dysfunction and minimal symptoms. This should be followed up by the provider at [facility]. In the discharge instructions of her last hospitalization , she was advised to see a neurosurgeon in the outpatient setting and this still has yet to happen. If this could be facilitated during her time at [facility], that would be of great benefit to the patient. Additionally, if the patient's valium could continue to be tapered down with the ultimate goal of discontinuation, this would be of great benefit to the patient as the patient did express interest in this during her last hospitalization. DIET: Carbohydrate consistent diet. ACTIVITY: Patient may return to normal activity as tolerated on 3 liters of continuous oxygen via nasal cannula. The patient is to return to the emergency department if she is experiencing altered mental status, fever or chills, hematuria, palpitations, sustained tachycardia, or hypoxia despite 3 liters of oxygen via nasal cannula. NEW DISCHARGE MEDICATIONS: 1. Ciprofloxacin 250 mg p.o. b.i.d. times 3 days. 2. Digoxin 0.125 mg p.o. daily. 3. Potassium Chloride 20 mEq p.o. b.i.d. DISCONTINUED HOME MEDICATIONS: 1. Amlodipine 10 mg p.o. daily. 2. Hydrochlorothiazide 25 mg p.o. daily. 3. Lasix 20 mg p.o. daily. CONTINUED HOME MEDICATIONS: 1. Nitroglycerin 0.4 mg sublingually prn angina. 2. Xyzal 5 mg p.o. at bedtime. 3. Hydrocortisone cream one application topically t.i.d. 4. Triamcinolone nasal spray daily. 5. Tylenol 650 mg p.o. q.6 hours prn pain. 6. Tramadol 50 mg p.o. q.6 hours prn maximum daily dose 4 tabs. 7. Symbicort two puffs inhaled b.i.d. 8. Pramipexole 1 mg p.o. b.i.d. 9. Nicotine patch 21 mg/24 hour transdermal patch daily. 10. Methyl Salicylate/Menthol cream one application topically b.i.d. 11. Metoprolol Succinate 25 mg p.o. daily. 12. Metformin 500 mg p.o. b.i.d. 13. Lyrica 200 mg p.o. t.i.d. 14. Magnesium Oxide 400 mg p.o. daily. 15. Incruse Ellipta one puff p.o. daily. 16. Eliquis 5 mg p.o. b.i.d. 17. Valium 5 mg p.o. b.i.d. 18. Celexa 10 mg p.o. daily. 19. BuSpar 5 mg p.o. t.i.d. prn anxiety. 20. Calamine lotion one application topical q.i.d. prn itch. 21. Lipitor 40 mg p.o. daily. 22. Albuterol nebulizer solution 2.5 mg inhaled q.4 hours prn shortness of breath. 23. Ventolin inhaler two puffs inhaled q.4 hours prn shortness of breath. CONDITION ON DISCHARGE: Stable. DISPOSITION: [facility]. TIME SEEN: Approximately 40 minutes were spent on this discharge, approximately half of this time was spent at the bedside evaluating the patient and discussing her plan of care. STEVE ORLANDO ADDENDUM: ACTUAL DATE OF DISCHARGE: 03/18/19 DISCHARGE MEDICATIONS: Ciprofloxacin 250 mg p.o. b.i.d. x3 days, starting date is 03/18/19 and the patient received morning dose before discharge. The patient was to be discharged on 03/17/19 and was safe for discharge; however , transportation to the nursing facility was not timely enough for readmission to [facility]. ADDITIONAL NEW DISCHARGE MEDICATIONS: Pyridium 100 mg p.o. t.i.d. x1 week. STEVE ORLANDO [id number]/CPS #: [id number]/CPS #: [id number] MEMO
--- NOTE | 2019-03-17 18:29 | PN ---
Subjective Date of Service: 03/17/19 Interval History: Patient complains of dysuria. She tells me this has not improved since coming to the hospital. Denies low back pain and low abd pain. Denies hematuria and fever/chills. Denies palpitations, chest pain, difficulty breathing. Family History: Unchanged from Admission Social History: Unchanged from Admission Past Medical History: Unchanged from Admission Objective Active Medications: Acetaminophen (Tylenol Tab*) 650 mg PO Q6H PRN PRN Reason: PAIN - MILD Last Admin: 03/17/19 15:55 Dose: 650 mg Albuterol (Ventolin 2.5 Mg/3 Ml Neb.Marjorie*) 2.5 mg INH Q4H PRN PRN Reason: SOB/WHEEZING Albuterol (Ventolin Hfa Inhaler*) 2 puff INH Q4H PRN PRN Reason: SOB/WHEEZING Last Admin: 03/17/19 07:50 Dose: 2 puff Apixaban (Eliquis*) 5 mg PO BID [facility] Last Admin: 03/17/19 09:42 Dose: 5 mg Atorvastatin Calcium (Lipitor*) 40 mg PO 2100 [facility] Last Admin: 03/16/19 20:24 Dose: 40 mg Buspirone HCl (Buspar Tab*) 5 mg PO TID PRN PRN Reason: ANXIETY Calamine (Calamine Lotion*) 1 applic TOPICAL QID PRN PRN Reason: ITCHING Citalopram Hydrobromide (Celexa Tab*) 10 mg PO DAILY [facility] Last Admin: 03/17/19 09:40 Dose: 10 mg Digoxin (Lanoxin Tab*) 0.125 mg PO DAILY [facility] Last Admin: 03/17/19 09:40 Dose: 0.125 mg Aztreonam 1 gm/ Sodium (Chloride) 50 mls @ 200 mls/hr IVPB 0730,1530,2330 [facility] Last Admin: 03/17/19 17:27 Dose: 200 mls/hr Magnesium Oxide (Magox 400 Tab*) 400 mg PO DAILY [facility] Last Admin: 03/17/19 09:42 Dose: 400 mg Metformin HCl (Glucophage*) 500 mg PO BID [facility] Last Admin: 03/17/19 09:42 Dose: 500 mg Metoprolol Succinate (Toprol Xl Tab*) 12.5 mg PO DAILY [facility] Last Admin: 03/17/19 09:43 Dose: 12.5 mg Mometasone Furoate/Formoterol Fumar (Dulera 200/5 Mdi*) 2 puff INH BID [facility]; Protocol Last Admin: 03/17/19 07:50 Dose: 2 puff Multi-Ingredient Liniment/Rub (German Stark*) 1 applic TOPICAL BID [facility] Last Admin: 03/17/19 07:28 Dose: 1 applic Nicotine (Nicotine Patch 21 Mg/24 Hr*) 1 patch TRANSDERM DAILY [facility] Last Admin: 03/17/19 09:43 Dose: 1 patch Pharmacy Profile Note (Nicotine Patch Removal Note*) 1 note PATCH OFF 2100 [facility] Last Admin: 03/16/19 20:25 Dose: 1 note Potassium Chloride (Klor Con Er Tab*) 20 meq PO BID [facility] Last Admin: 03/17/19 09:42 Dose: 20 meq Pramipexole Dihydrochloride (Mirapex Tab*) 1 mg PO BID [facility] Last Admin: 03/17/19 09:40 Dose: 1 mg Pregabalin (Lyrica Cap(*)) 100 mg PO TID [facility] Last Admin: 03/17/19 15:51 Dose: 100 mg Tiotropium [place] (Spiriva Respimat 2.5 Mcg) 2 puff INH DAILY [facility] Last Admin: 03/17/19 07:50 Dose: 2 puff Tramadol HCl (Ultram*) 50 mg PO Q6H PRN PRN Reason: severe pain Last Admin: 03/17/19 07:27 Dose: 50 mg Vital Signs - 8 hr 03/17/19 03/17/19 03/17/19 11:38 15:51 16:19 Temperature 97.0 F 97.5 F Pulse Rate 74 78 Respiratory 16 22 20 Rate Blood Pressure 103/87 128/76 (mmHg) O2 Sat by Pulse 93 96 Oximetry 03/17/19 17:31 Temperature Pulse Rate Respiratory 18 Rate Blood Pressure (mmHg) O2 Sat by Pulse Oximetry Oxygen Devices in Use Now: Nasal Cannula Appearance: Obese, elderly white female, laying upright, in NAD Eyes: No Scleral Icterus, PERRLA Ears/Nose/Mouth/Throat: Mucous Membranes Moist Neck: NL Appearance and Movements; NL JVP Respiratory: Symmetrical Chest Expansion and Respiratory Effort, - - faint crackles in bilateral lung bases Cardiovascular: NL Sounds; No Murmurs; No JVD, RRR Abdominal: - - abd soft, nontender, nondistended; no suprapubic tenderness Extremities: No Edema, No Clubbing, Cyanosis Skin: No Rash or Ulcers Neurological: Alert and Oriented x 3, NL Muscle Strength and Tone Result Diagrams: 03/17/19 05:50 03/17/19 05:50 Microbiology and Other Data: Microbiology 03/14/19 20:56 Aerobic Blood Culture - Preliminary Blood Venous No Growth Day 2 Anaerobic Blood Culture - Preliminary No Growth Day 2 03/14/19 16:15 Urine Culture - Final Urine Klebsiella Aerogenes 03/13/19 18:00 Nasal Screen MRSA (PCR) - Final Nasal Mrsa Not Detected Assess/Plan/Problems-Billing Assessment: Ms. Regalado is a 73 yo F with PMH of afib, COPD with chronic respiratory failure on 3L, CAD, DM, dCHF, CVAs, and TAVR; who presented to the ED d/t multiple falls and was found to be hypoxic and hypotensive. - Patient Problems (1) Atrial fibrillation with rapid ventricular response Current Visit: No Status: Acute Code(s): I48.91 - UNSPECIFIED ATRIAL FIBRILLATION SNOMED Code(s): 989044474062238 Comment: - Went into RVR 03/14/19 secondary to fluid overload, infection; achieved rate control with diltiazem drip - Unable to titrate up BB d/t soft pressures, so dig was added with good response - Will need to have dig level in 1 week - Continue digoxin; metoprolol decreased from 25mg to 12.5mg d/t soft pressures - Continue eliquis (2) Acute and chronic respiratory failure with hypoxia Current Visit: No Status: Acute Code(s): J96.21 - ACUTE AND CHRONIC RESPIRATORY FAILURE WITH HYPOXIA SNOMED Code(s): 18029295 Comment: - Went into respiratory distress 03/14/19 secondary to RVR and fluid overload; now resolved given she is back to baseline oxygen use at 3L (3) UTI (urinary tract infection) Current Visit: Yes Status: Acute Comment: - Urine culture with klebsiella aerogenes - Multiple abx allergies limiting options - Changing aztreonam to cipro - Afebrile, no leukocytosis - Starting pyridium for dysuria (4) Diastolic heart failure Current Visit: Yes Status: Acute Code(s): I50.30 - UNSPECIFIED DIASTOLIC ( CONGESTIVE) HEART FAILURE SNOMED Code(s): 548612222 Comment: -restarting home lasix given crackles in lungs -previously held due to hypotension and hypovolemia (5) Thrombocytopenia Current Visit: Yes Status: Acute Code(s): D69.6 - THROMBOCYTOPENIA, UNSPECIFIED SNOMED Code(s): 591693292 Comment: -uptrending now -likely 2/2 infection (6) Hypotension Current Visit: Yes Status: Acute Comment: - Suspect secondary to dehydration and third spacing - Improving but continue to hold amlodipine and HCTZ (7) CAD (coronary artery disease) Current Visit: No Status: Acute Code(s): I25.10 - ATHSCL HEART DISEASE OF [place] CORONARY ARTERY W/O ANG PCTRS SNOMED Code(s): 01469047 Comment: - Trop elevated on admission, peaked at 0.07; suspect demand ischemia - Continue metoprolol, atorvastatin (8) COPD (chronic obstructive pulmonary disease) Current Visit: No Status: Chronic Priority: High Code(s): J44.9 - CHRONIC OBSTRUCTIVE PULMONARY DISEASE, UNSPECIFIED SNOMED Code(s): 41950036 Comment: - No evidence of exacerbation - Continue Dulera, Spiriva (9) Diabetes Current Visit: No Status: Chronic Priority: High Code(s): E11.9 - TYPE 2 DIABETES MELLITUS WITHOUT COMPLICATIONS SNOMED Code(s): 36184399 Comment: - Good glucose control - Continue metformin (10) Restless leg syndrome Current Visit: No Status: Chronic Comment: - Continue Mirapex, Lyrica (11) DNR (do not resuscitate) Current Visit: Yes Status: Acute Comment: (12) DVT prophylaxis Current Visit: No Status: Acute Priority: High Code(s): YPP9323 - SNOMED Code(s): 200390325 Comment: - Eliquis Status and Disposition: Inpatient. Attempted d/c today but was not successful d/t transportation to [place]. Will d/c tomorrow
[2019-03-17] MEDS: Phenazopyridine TAB* 100 MG PO SCH (21:01)
[2019-03-17] MEDS: Atorvastatin* 40 MG TAB PO SCH (21:01)
[2019-03-17] MEDS: Ciprofloxacin TAB* 250 MG PO SCH (21:01)
[2019-03-17] MEDS: Nicotine Patch Removal NOTE PATCH OFF SCH (21:02)
[2019-03-18 07:42] VITALS: BP 125/68
[2019-03-18] MEDS: Pramipexole TAB* 0.5 MG PO SCH (07:55)
[2019-03-18] MEDS: Potassium Chlor TAB* 20 MEQ TAB.ER PO SCH (07:55)
[2019-03-18] MEDS: metFORMIN* 500 MG TAB PO SCH (07:56)
[2019-03-18] MEDS: Phenazopyridine TAB* 100 MG PO SCH (07:56)
[2019-03-18] MEDS: Magnesium Oxide TAB* 400 MG PO SCH (07:57)
[2019-03-18] MEDS: Digoxin TAB* 0.125 MG PO SCH (07:57)
[2019-03-18] MEDS: Citalopram TAB* 10 MG PO SCH (07:57)
[2019-03-18] MEDS: Ciprofloxacin TAB* 250 MG PO SCH (07:58)
[2019-03-18] MEDS: Pregabalin CAP(*) 100 MG PO SCH (07:58)
[2019-03-18] MEDS: Nicotine PATCH 21 MG/24 HR* PATCH TRANSDERM SCH (07:59)
[2019-03-18] MEDS: Apixaban* 5 MG TAB PO SCH (07:59)
[2019-03-18] MEDS: Metoprolol Succinate XL TAB* 25 MG PO SCH (08:01)
[2019-03-18] MEDS ORDERED: Furosemide TAB* 20 MG PO SCH (09:00)
[2019-03-18] MEDS: Mometasone/Formoter 200/5 MDI INH SCH (09:11)
[2019-03-18] MEDS: SPIRIVA Respimat* (tiotropium) 2.5 mcg/inh Inhaler INH SCH (09:11)
--- NOTE | 2019-03-18 10:07 | DS ---
DISCHARGE SUMMARY: ADDENDUM: ACTUAL DATE OF DISCHARGE: 03/19/19 DISCHARGE MEDICATIONS: Ciprofloxacin 250 mg p.o. b.i.d. x3 days, starting date is 03/18/19 and the patient received morning dose before discharge. The patient was to be discharged on 03/17/19 and was safe for discharge; however , transportation to the nursing facility was not timely enough for readmission. ADDITIONAL DISCHARGE MEDICATIONS: Pyridium 100 mg p.o. t.i.d. x1 week. STEVE THOMPSON [id number]/[facility] #: [id number] [facility] HOSPITALJovany
== END 2019-03-18 10:50 | DRG 308 ==
LOC: ED 08:40 → MEDTELE 12:42 → ICU 03-14 19:06 → MEDTELE 03-16 08:09
PROVIDERS: ADMIT Hospitalist; ATTEND Internal Medicine
DX: I48.0 Paroxysmal atrial fibrillation (principal); J96.21 Acute and chronic respiratory failure with hypoxia; N39.0 Urinary tract infection, site not specified; I50.30 Unspecified diastolic (congestive) heart failure; N17.9 Acute kidney failure, unspecified; I24.8 Other forms of acute ischemic heart disease; B96.1 Klebsiella pneumoniae [K. pneumoniae] as the cause of diseases classified elsewhere; E86.1 Hypovolemia; E87.6 Hypokalemia; Z66 Do not resuscitate; J44.9 Chronic obstructive pulmonary disease, unspecified; Z99.81 Dependence on supplemental oxygen; F32.9 Major depressive disorder, single episode, unspecified; F41.9 Anxiety disorder, unspecified; G25.81 Restless legs syndrome; E03.9 Hypothyroidism, unspecified; I25.10 Atherosclerotic heart disease of native coronary artery without angina pectoris; E78.5 Hyperlipidemia, unspecified; E11.42 Type 2 diabetes mellitus with diabetic polyneuropathy; I11.0 Hypertensive heart disease with heart failure; G40.909 Epilepsy, unspecified, not intractable, without status epilepticus; G89.29 Other chronic pain; D47.3 Essential (hemorrhagic) thrombocythemia; K21.9 Gastro-esophageal reflux disease without esophagitis; M10.9 Gout, unspecified; I95.9 Hypotension, unspecified; F17.210 Nicotine dependence, cigarettes, uncomplicated; E66.9 Obesity, unspecified; I25.2 Old myocardial infarction; Z95.2 Presence of prosthetic heart valve; Z86.73 Personal history of transient ischemic attack (TIA), and cerebral infarction without residual deficits; Z68.37 Body mass index [BMI] 37.0-37.9, adult; Z79.84 Long term (current) use of oral hypoglycemic drugs; Z79.1 Long term (current) use of non-steroidal anti-inflammatories (NSAID); Z79.51 Long term (current) use of inhaled steroids; Z79.899 Other long term (current) drug therapy; Z88.6 Allergy status to analgesic agent; Z88.5 Allergy status to narcotic agent; Z88.0 Allergy status to penicillin; Z88.8 Allergy status to other drugs, medicaments and biological substances; Z82.49 Family history of ischemic heart disease and other diseases of the circulatory system; Z81.3 Family history of other psychoactive substance abuse and dependence
CPT/HCPCS: 36415; 36600; 70450; 71045; 72170; 80048; 80053; 81003; 81015; 82803; 83605; 83735; 83880; 84484; 85025; 85060; 86140; 87040; 87077; 87086; 87186; 87641; 93005; 93306; 94640; 94660; 96365; 99283; A9270-GY; G8978-GP-CL; G8979-GP-CI; J1160; J1940; J3475; J3480; J3490; J3535

== ENCOUNTER 2019-07-07 01:48 | Emergency (ER) | payer MEDICARE, MEDICAID ==
[2019-07-07] MEDS ORDERED: fentaNYL PATCH 50 MCG/HR TRANSDERM ONE (02:07)
[2019-07-07] MEDS ORDERED: rOPINIRole TAB* 1 MG PO ONE (02:08)
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
[2019-07-07 04:07] LABS: ABS Basophils 0.1 10^3/ul (0-0.2); ABS Eosinophils 0.1 10^3/ul (0-0.6); ABS Lymphocytes 2.4 10^3/ul (1.0-4.8); ABS Monocytes 0.5 10^3/ul (0-0.8); ABS Neutrophils 4.1 10^3/ul (1.5-7.7); Eosinophil % 1.3 %; Hematocrit 37 % (35-47); Hemoglobin 12.2 g/dL (12.0-16.0); Lymphocyte % 33.7 %; Mean Corpuscular HGB Conc 33 g/dL (31-36); Mean Corpuscular Hemoglobin 30 pg (27-31); Mean Corpuscular Volume 91 fL (80-97); Mean Platelet Volume 7.8 fL (7.4-10.4); Platelet Count 227 10^3/uL (150-450); Red Blood Count 4.07 10^6 /uL (3.70-4.87); Red Cell Distribution Width 15 % (10-15); White Blood Count 7.1 10^3/uL (3.5-10.8)
[2019-07-07 04:25] LABS: ALT 9 U/L (7-52); AST 17 U/L (13-39); Albumin 4.1 g/dL (3.2-5.2); Albumin/Globulin Ratio 1.5 (1-3); Alkaline Phosphatase 83 U/L (34-104); Anion Gap 9 mmol/L (2-11); BUN/Creatinine Ratio 31.6 (8-20); Blood Urea Nitrogen 25 mg/dL (6-24); C Reactive Protein 2.05 mg/L (<8.01); CO2 Carbon Dioxide 15 mmol/L (22-32); Calcium 9.1 mg/dL (8.6-10.3); Chloride 116 mmol/L (101-111); Creatine Kinase 252 U/L (10-223); EGFR African American 86.8 (>60); EGFR Non-African American 71.7 (>60); Globulin 2.7 g/dL (2-4); Glucose 107 mg/dL (70-100); Potassium 3.6 mmol/L (3.5-5.0); Sodium 140 mmol/L (135-145); Total Protein 6.8 g/dL (6.4-8.9)
[2019-07-07 04:26] LABS: Troponin I 0.01 ng/mL (<0.03)
[2019-07-07 04:38] LABS: Alcohol < 10 mg/dL (<10)
[2019-07-07 05:51] LABS: Urine Appearance Clear; Urine Bilirubin Negative (Negative); Urine Blood Negative (Negative); Urine Color Yellow; Urine Glucose Negative (Negative); Urine Ketones Trace (Negative); Urine Nitrite Negative (Negative); Urine Protein 1+(30 mg/dL) (Negative); Urine Urobilinogen Negative (Negative)
[2019-07-07 05:57] LABS: Urine Bacteria Absent (Absent); Urine Red Blood Cell Trace(0-2/hpf) (Absent); Urine Squamous Epithelial Cell Present (Absent); Urine White Blood Cell Trace(0-5/hpf) (Absent)
--- NOTE | 2019-07-07 05:59 | ED ---
Progress - Progress Note Progress Note: The patient is a sign-out from STEVE Johnston, to Dr. Ariadna Lora MD, at change of shift at 0230 on 07/07/19, pending Brain CT, Cervical Spine CT, Knee XR , Hand XR, and disposition. Patient declined Knee and Hand XRs. Brain CT and Cervical Spine CT are negative for acute findings. Patient requested pain medication prior to discharge. I recommended follow up with her pain management provider, Emilee Marrero. Patient agreed with plan. - Results/Orders Results/Orders: Brain CT Impression: 1. Minimal chronic ischemic white matter change which is unchanged from 03/13/2019. 2. No acute interval intracranial process is identified. ED physician has reviewed this report. Cervical Spine CT Impression: 1. Multilevel degenerative changes with no spinal stenosis. There are varying degrees of neural foraminal stenosis. 2. No acute fracture or subluxation. ED physician has reviewed this report. Re-Evaluation - Re-Evaluation First Eval Re-Evaluation Time: 07:05 Comment: She requested pain medication prior to discharge. I recommended follow up with her pain management provider. I have discussed results with the patient. Discussed symptoms that warrant immediate return to ED. Course/Dx - Diagnoses Provider Diagnoses: Chronic back pain Discharge ED - Sign-Out/Discharge Documenting (check all that apply): Patient Departure - Patient will be discharged home., Receiving Sign-Out Receiving patient FROM: Lexx David - Patient is a sign-out from STEVE Johnston , at change of shift at 0230 on 07/07/19, pending imaging results and disposition. - Discharge Plan Condition: Stable Disposition: HOME Patient Education Materials: Chronic Pain (ED) Referrals: Lionel Collins MD [Primary Care Provider] - 3 Days Lidia Marrero MD [Medical Doctor] - 3 Days Additional Instructions: Follow up with your primary care provider in 2-3 days concerning pain medication. Return to the emergency department for any new or worsening symptoms. - Attestation Statements Document Initiated by Scribe: Yes Documenting Scribe: Xin Diego Provider For Whom Scribe is Documenting (Include Credential): Dr. Ariadna Lora MD Scribe Attestation: Xin Mustafa, scribed for Dr. Ariadna Lora MD on 07/07/19 at 0731. Status of Scribe Document: Ready Procedures - Sedation Patient Received Moderate/Deep Sedation with Procedure: No
[2019-07-07 06:10] LABS: Urine Benzodiazepine Screen Presumptive Positive (None Detect); Urine Opiates Screen None Detected (None Detect)
[2019-07-07 07:05] VITALS: BP 134/88
== END 2019-07-07 07:04 | disposition home or self-care (01) ==
LOC: ED 01:48
DX: M54.5 Low back pain (principal); M79.662 Pain in left lower leg; M79.661 Pain in right lower leg; M79.642 Pain in left hand; M17.12 Unilateral primary osteoarthritis, left knee; M50.33 Other cervical disc degeneration, cervicothoracic region; W19.XXXA Unspecified fall, initial encounter; Z91.81 History of falling; Y92.009 Unspecified place in unspecified non-institutional (private) residence as the place of occurrence of the external cause; I10 Essential (primary) hypertension; J44.9 Chronic obstructive pulmonary disease, unspecified; Z99.81 Dependence on supplemental oxygen; Z79.01 Long term (current) use of anticoagulants; Z95.2 Presence of prosthetic heart valve; Z88.6 Allergy status to analgesic agent; Z88.1 Allergy status to other antibiotic agents; Z88.5 Allergy status to narcotic agent; Z88.0 Allergy status to penicillin; Z88.2 Allergy status to sulfonamides; F17.210 Nicotine dependence, cigarettes, uncomplicated
CPT/HCPCS: 36415; 70450; 72125; 80053; 80307; 80320; 81003; 81015; 82550; 84443; 84484; 85025; 86140; 87086; 99283; A9270-GY; G0480

== ENCOUNTER 2019-08-06 14:57 | Emergency (ER) | payer MEDICARE, MEDICAID ==
[2019-08-06] MEDS ORDERED: HYDROmorphone INJ* 0.5 MG/0.5 ML SYRINGE IV ONE ×2 (16:41→19:18)
--- NOTE | 2019-08-06 16:42 | ED ---
Complex/Multi-Sys Presentation - HPI Summary HPI Summary: 73 year old F [facility] EMS complains of original numbness in her left leg and left arm that developed into severe leg and bottom pain and full body weakness. Patient states the numbness traveled up her lower back. She reports burning leg pain and having troubles with me bowels and bladde. Patient reports falling on the bus yesterday with her walker landing on her, after which her pain started. Patient denies fever. PMHx of stroke, O2 use at home, COPD, CHF, restless leg syndrome in the right leg, and borderline sugar. She is currently on diabetes medication. SocHx of cigarette use. The patient rates the pain 9/10 in severity. Symptoms aggravated by nothing. Symptoms alleviated by nothing. Medications reviewed. Allergies noted. - History Of Current Complaint Chief Complaint: EDGeneral Time Seen by Provider: 08/06/19 16:19 Hx Obtained From: Patient, EMS Onset/Duration: Sudden Onset, Lasting Days - Since yesterday, Still Present, Worse Since Timing: Constant Severity Currently: Severe Severity Initially: Severe Location: Pain At: - Lower extremities, back, bottom, Radiates To: - Lower back Aggravating Factor(s): Nothing Alleviating Factor(s): Nothing Associated Signs And Symptoms: Positive: Other - LLE pain and numbness. Negative: Fever - Allergies/Home Medications Allergies/Adverse Reactions: Allergies Allergy/AdvReac Type Severity Reaction Status Date / Time aspirin Allergy Unknown Verified 07/07/19 02:08 Reaction Details Carbapenems Allergy Unknown Verified 07/07/19 02:08 Reaction Details Cephalosporins Allergy Unknown Verified 07/07/19 02:08 Reaction Details ketorolac Allergy Unknown Verified 07/07/19 02:08 Reaction Details morphine Allergy Unknown Verified 07/07/19 02:08 Reaction Details Penicillins Allergy Unknown Verified 07/07/19 02:08 Reaction Details sulfamethoxazole Allergy Unknown Verified 07/07/19 02:08 [From Bactrim] Reaction Details trimethoprim [From Bactrim] Allergy Unknown Verified 07/07/19 02:08 Reaction Details Home Medications: Home Medications Diazepam TAB(*) [Valium TAB(*)] 5 mg PO BID 10/16/17 [History Confirmed 08/06/19 ] LevoCETirizine TAB (NF) [Xyzal TAB (NF)] 5 mg PO BEDTIME 10/16/17 [History Confirmed 08/06/19] Albuterol HFA INHALER* [Ventolin HFA Inhaler*] 2 puff INH Q4H PRN 12/16/17 [ History Confirmed 08/06/19] Apixaban* [Eliquis*] 5 mg PO BID 12/16/17 [History Confirmed 08/06/19] Budesonide/Formote 160/4.5(NF) [Symbicort 160/4.5 (NF)] 2 puff INH BID 12/16/17 [History Confirmed 08/06/19] Umeclidinium [place] [Incruse Ellipta] 1 puff PO DAILY 01/29/18 [History Confirmed 08/06/19] Albuterol 2.5MG/3ML (0.083%)* [Ventolin 2.5 MG/3 ML NEB.SHREYA*] 2.5 mg INH Q4H PRN #30 neb.soln 02/01/18 [Rx Confirmed 08/06/19] Atorvastatin* [Lipitor 40 MG*] 40 mg PO 2100 #30 tab 02/01/18 [Rx Confirmed ] Metoprolol Succinate 25 mg PO DAILY #30 tab.er.24h 02/01/18 [Rx Confirmed ] metFORMIN* [Glucophage 500 MG TAB *] 500 mg PO BID #60 tab 02/01/18 [Rx Confirmed 08/06/19] Magnesium Oxide 400 mg PO DAILY 12/07/18 [History Confirmed 08/06/19] Triamcinolone NASAL SPRAY* [Nasacort Aq Nasal [place]*] 1 puff NASAL DAILY [History Confirmed 08/06/19] Acetaminophen TAB* [Tylenol TAB*] 650 mg PO Q6H PRN tab 12/16/18 [Rx Confirmed 08/06/19] Calamine LOTION* 1 applic TOPICAL QID PRN btl 02/19/19 [Rx Confirmed 08/06/19] Citalopram TAB* [Celexa TAB*] 10 mg PO DAILY #30 tab 02/19/19 [Rx Confirmed ] Nicotine PATCH 21 MG/24 HR* 1 patch TRANSDERM DAILY patch 02/19/19 [Rx Confirmed 08/06/19] busPIRone TAB* [Buspar TAB*] 5 mg PO TID PRN tab 02/19/19 [Rx Confirmed ] traMADol TAB* [Ultram*] 50 mg PO Q6H PRN #30 tab MDD 4 tabs 02/19/19 [Rx Confirmed 08/06/19] Hydrocortisone Acetate [Vanicream Hc] 1 applic TOPICAL TID 03/13/19 [History Confirmed 08/06/19] Methyl Salicylate/Menthol [Muscle Rub Cream] 1 applic TOPICAL BID 03/13/19 [ History Confirmed 08/06/19] Nitroglycerin TAB 0.4 MG* 0.4 mg SL Q5M PRN 03/13/19 [History Confirmed 08/06/19 ] Pramipexole TAB* [Mirapex TAB*] 1 mg PO BID 03/13/19 [History Confirmed 08/06/19 ] Digoxin TAB* [Lanoxin TAB*] 0.125 mg PO DAILY #0 tab 03/17/19 [Rx Confirmed ] Potassium Chlor TAB* [Potassium Chlor TAB 20 MEQ*] 20 meq PO BID tab.er [Rx Confirmed 08/06/19] Phenazopyridine TAB* [Pyridium 100 mg TAB*] 100 mg PO TID tab 03/18/19 [Rx Confirmed 08/06/19] Pregabalin 100 mg CAP (*) [Lyrica 100 mg CAP (*)] 200 mg PO TID 08/06/19 [ History Confirmed 08/06/19] fentaNYL PATCH 50 MCG/HR* [Duragesic PATCH 50 Mcg/Hr*] 50 mcg TRANSDERM Q72H [History Confirmed 08/06/19] PMH/Surg Hx/FS Hx/Imm Hx Endocrine/Hematology History: Reports: Hx Anticoagulant Therapy, Hx Diabetes, Hx Thyroid Disease - hypothyroid Denies: Hx Blood Transfusions Cardiovascular History: Reports: Hx Angina, Hx Congestive Heart Failure, Hx Coronary Artery Disease, Hx Hypercholesterolemia, Hx Hypertension, Hx Peripheral Vascular Disease, Hx Syncope, Other Cardiovascular Problems/ Disorders - CHF Denies: Hx Pacemaker/ICD Respiratory History: Reports: Hx Asthma, Hx Chronic Bronchitis, Hx Chronic Obstructive Pulmonary Disease (COPD) - PT ON HOME O2 3 L/MIN, Hx Pneumonia, Hx Pulmonary Edema, Hx Seasonal Allergies, Hx Sleep Apnea Denies: Hx Lung Cancer GI History: Reports: Hx Gastroesophageal Reflux Disease History: Denies: Hx Renal Disease Musculoskeletal History: Reports: Hx Arthritis, Hx Back Problems, Hx Bursitis, Hx Orthopedic Injury, Hx Osteoporosis Denies: Hx Fibromyalgia Sensory History: Reports: Hx Vision Problem, Hx Hearing Problem - [place] Denies: Hx Contacts or Glasses, Hx Hearing Aid Opthamlomology History: Reports: Hx Vision Problem Denies: Hx Contacts or Glasses Neurological History: Reports: Hx CVA Denies: Hx Dementia, Hx Developmental Delay, Hx Headaches, Hx Migraine, Hx Seizures, Hx Spinal Cord Injury, Hx Transient Ischemic Attacks (TIA) Psychiatric History: Reports: Hx Anxiety, Hx Depression, Hx of Violent Episodes Against Others Denies: Hx Eating Disorder, Hx Panic Disorder - Cancer History Cancer Type, Location and Year: Uterine Cancer Hx Chemotherapy: No Hx Radiation Therapy: Yes Hx Palliative Cancer Treatment: No - Surgical History Surgery Procedure, Year, and Place: cholecystectomy, carpal tunnel bilat hands, hysterectomy, heart valve repair/replacement (2018) Hx Anesthesia Reactions: No Infectious Disease History: No Infectious Disease History: Reports: Hx of Known/Suspected MRSA Denies: Traveled Outside the [place] in Last 30 Days - Family History Known Family History: Positive: Hypertension, Diabetes, Non-Contributory - Social History Alcohol Use: Occasionally Alcohol Amount: wine Hx Substance Use: No Substance Use Type: Reports: Marijuana Substance Use Comment - Amount & Last Used: occassional use for pain Hx Tobacco Use: Yes Smoking Status (MU): Light Every Day Tobacco Smoker Type: Cigarettes Amount Used/How Often: 1/2 pack a day Have You Smoked in the Last Year: Yes Review of Systems Negative: Fever Musculoskeletal: Other - Leg pain Positive: Numbness - Left leg All Other Systems Reviewed And Are Negative: Yes Physical Exam - Summary Physical Exam Summary: Constitutional: Well-developed, Well-nourished, Alert. Mild distress. Patient rolling around the bed in pain. Skin: Warm, Dry HENT: Normocephalic; Atraumatic Eyes: Conjunctiva normal Neck: Musculoskeletal ROM normal neck. (-) JVD, (-) Stridor, (-) Tracheal deviation Cardio: Rhythm regular, rate normal, Heart sounds normal; Intact distal pulses; Radial pulses are 2+ and symmetric. (-) Murmur Pulmonary/Chest wall: Effort normal. (-) Respiratory distress, (-) Wheezes, (-) Rales Abd: Soft, (-) tenderness, (-) Distension, (-) Guarding, (-) Rebound Musculoskeletal: LLE with 2/5 strength. RLE with 4/5 strength. Sensation intact and equal distally in the lower extremities. Lymph: (-) Cervical adenopathy Neuro: Alert, Oriented x3 Psych: Mood and affect Normal Triage Information Reviewed: Yes Vital Signs On Initial Exam: Initial Vitals Temp Pulse Resp BP Pulse Ox 96.4 F 90 25 153/110 95 08/06/19 15:16 08/06/19 15:16 08/06/19 15:16 08/06/19 15:16 08/06/19 15:16 Vital Signs Reviewed: Yes Procedures - Sedation Patient Received Moderate/Deep Sedation with Procedure: No Diagnostics - Vital Signs Vital Signs Temp Pulse Resp BP Pulse Ox 08/06/19 15:16 96.4 F 90 25 153/110 95 - Laboratory Result Diagrams: 08/06/19 16:54 08/06/19 16:54 Lab Statement: Any lab studies that have been ordered have been reviewed, and results considered in the medical decision making process. - Radiology MRI L-spine Radiology Interpretation Completed By: Radiologist Summary of Radiographic Findings: 1. Moderate multilevel lumbar spondylopathy unchanged from prior study causing possible compression of the left L2, right L4 , and right L5 nerve roots. No canal stenosis or findings of cauda equina syndrome. 2. Bosniak type I renal cysts. No followup indicated. Dr. Higgins has reviewed this radiology report. Re-Evaluation - Re-Evaluation First Eval Re-Evaluation Time: 18:16 Change: Improved Comment: Feeling much better after pain medication Second Eval Re-Evaluation Time: 19:18 Comment: Patient brought to MRI, but she stated she was in too much pain to stay still for the MRI. Thus she was brought back. Will re-dose pain medication. Third Eval Re-Evaluation Time: 21:10 Change: Improved Comment: Patient is feeling much better. Discussed MRI results with patient. Patient will be discharged home with dx of lower back pain and lumbar radiculopathy. Patient understands and agrees with this plan. Complex Multi-Symp Course/Dx Course Of Treatment: Patient is here with back pain and an episode of incontinence. Patient was initially very hysterical on exam and was hard to get a good history from. This is baseline per nursing staff who have worked with her in the past. Patient does have a history of chronic pain. Patient was given IV pain medication with improvement in her symptoms. Patient had blood or performed which was grossly unremarkable. Given patient's severe back pain, incontinence, an MRI was ordered which showed no acute changes. Patient was comfortable at the time of discharge. - Diagnoses Provider Diagnoses: Lower back pain, Lumbar radiculopathy Discharge ED - Sign-Out/Discharge Documenting (check all that apply): Patient Departure - Discharge - Discharge Plan Condition: Stable Disposition: HOME Patient Education Materials: Low Back Strain (ED), Lumbar Radiculopathy (ED), Lower Back Exercises (ED) Referrals: Lionel Collins MD [Primary Care Provider] - 1 Day Additional Instructions: Follow up with your primary care provider tomorrow to get re-evaluated. Come back if you have any concerning symptoms. - Billing Disposition and Condition Condition: STABLE Disposition: Home - Attestation Statements Document Initiated by Scribe: Yes Documenting Scribe: Ty Meredith Provider For Whom Erinn is Documenting (Include Credential): Robert Higgins MD Scribe Attestation: I, Ty Meredith, scribed for Robert Higgins MD on 08/06/19 at 2120. Scribe Documentation Reviewed: Yes Provider Attestation: The documentation as recorded by the elioibaziza, Ty Meredith accurately reflects the service I personally performed and the decisions made by me, Robert Higgins MD Status of Scribe Document: Viewed
[2019-08-06 17:01] LABS: ABS Eosinophils 0.1 10^3/ul (0-0.6); ABS Monocytes 0.6 10^3/ul (0-0.8); ABS Neutrophils 3.7 10^3/ul (1.5-7.7); Eosinophil % 1.2 %; Hematocrit 36 % (35-47); Hemoglobin 12.4 g/dL (12.0-16.0); Lymphocyte % 40.7 %; Mean Corpuscular HGB Conc 35 g/dL (31-36); Mean Corpuscular Hemoglobin 31 pg (27-31); Mean Corpuscular Volume 90 fL (80-97); Nucleated Red Blood Cells % 0.1; Platelet Count 224 10^3/uL (150-450); Red Blood Count 3.94 10^6 /uL (3.70-4.87); Red Cell Distribution Width 16 % (10-15); White Blood Count 7.4 10^3/uL (3.5-10.8)
[2019-08-06 17:20] LABS: Albumin 4.5 g/dL (3.2-5.2); Albumin/Globulin Ratio 1.7 (1-3); C Reactive Protein 1.43 mg/L (<8.01); Calcium 9.3 mg/dL (8.6-10.3); EGFR African American 84.3 (>60); EGFR Non-African American 69.7 (>60); Globulin 2.6 g/dL (2-4); Total Bilirubin 0.5 mg/dL (0.2-1.0); Total Protein 7.1 g/dL (6.4-8.9)
[2019-08-06 17:40] LABS: Potassium 4.4 mmol/L (3.5-5.0)
[2019-08-06 23:12] VITALS: BP 0/0
== END 2019-08-06 22:00 | disposition home or self-care (01) ==
LOC: ED 14:57
DX: M54.5 Low back pain (principal); M54.16 Radiculopathy, lumbar region; M48.9 Spondylopathy, unspecified; N28.1 Cyst of kidney, acquired; J44.9 Chronic obstructive pulmonary disease, unspecified; Z99.81 Dependence on supplemental oxygen; R73.03 Prediabetes; Z79.84 Long term (current) use of oral hypoglycemic drugs; E78.00 Pure hypercholesterolemia, unspecified; I10 Essential (primary) hypertension; Z79.01 Long term (current) use of anticoagulants; Z95.2 Presence of prosthetic heart valve; Z79.51 Long term (current) use of inhaled steroids; K21.9 Gastro-esophageal reflux disease without esophagitis; F41.9 Anxiety disorder, unspecified; F32.9 Major depressive disorder, single episode, unspecified; Z79.899 Other long term (current) drug therapy; Z88.6 Allergy status to analgesic agent; Z88.1 Allergy status to other antibiotic agents; Z88.5 Allergy status to narcotic agent; Z88.0 Allergy status to penicillin; Z88.2 Allergy status to sulfonamides; Z88.8 Allergy status to other drugs, medicaments and biological substances; F17.210 Nicotine dependence, cigarettes, uncomplicated
CPT/HCPCS: 36415; 72148; 80053; 85025; 86140; 96374; 96376; 99283; J1170

== ENCOUNTER 2019-09-18 18:31 | Inpatient (IN) | payer MEDICARE, MEDICAID ==
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
[2019-09-18 19:02] LABS: ABS Eosinophils 0.1 10^3/ul (0-0.6); ABS Lymphocytes 2.5 10^3/ul (1.0-4.8); ABS Monocytes 0.6 10^3/ul (0-0.8); ABS Neutrophils 4.7 10^3/ul (1.5-7.7); Eosinophil % 0.7 %; Hematocrit 36 % (35-47); Hemoglobin 12.3 g/dL (12.0-16.0); Lymphocyte % 31.4 %; Mean Corpuscular HGB Conc 34 g/dL (31-36); Mean Corpuscular Hemoglobin 31 pg (27-31); Mean Corpuscular Volume 92 fL (80-97); Mean Platelet Volume 7.4 fL (7.4-10.4); Platelet Count 241 10^3/uL (150-450); Red Blood Count 3.96 10^6 /uL (3.70-4.87); Red Cell Distribution Width 19 % (10-15); White Blood Count 7.9 10^3/uL (3.5-10.8)
[2019-09-18] MEDS ORDERED: fentaNYL PATCH 50 MCG/HR TRANSDERM ONE (19:03)
[2019-09-18 19:20] LABS: ALT 9 U/L (7-52); AST 18 U/L (13-39); Albumin 4.1 g/dL (3.2-5.2); Albumin/Globulin Ratio 1.5 (1-3); Alkaline Phosphatase 75 U/L (34-104); BUN/Creatinine Ratio 30.9 (8-20); Blood Urea Nitrogen 29 mg/dL (6-24); C Reactive Protein 2.09 mg/L (<8.01); CO2 Carbon Dioxide 17 mmol/L (22-32); Calcium 8.7 mg/dL (8.6-10.3); EGFR African American 70.8 (>60); EGFR Non-African American 58.5 (>60); Globulin 2.7 g/dL (2-4); Glucose 95 mg/dL (70-100); Potassium 3.8 mmol/L (3.5-5.0); Sodium 141 mmol/L (135-145); Total Protein 6.8 g/dL (6.4-8.9)
[2019-09-18 19:21] LABS: Troponin I 0.01 ng/mL (<0.03)
[2019-09-18 19:32] LABS: Anion Gap 11 mmol/L (2-11); Chloride 113 mmol/L (101-111)
[2019-09-18] MEDS ORDERED: Calamine LOTION* 120 ML TOPICAL PRN (23:10)
[2019-09-18] MEDS ORDERED: Albuterol 2.5 MG/3 ML NEB.SOL* (0.083%) INH PRN (23:10)
[2019-09-18] MEDS ORDERED: Albuterol HFA INHALER* 8 gm MDI INH PRN (23:10)
[2019-09-18] MEDS ORDERED: Nitroglycerin TAB 0.4 MG* 0.4 MG TAB SL PRN (23:10)
[2019-09-18] MEDS ORDERED: busPIRone TAB* 5 MG PO PRN (23:10)
--- NOTE | 2019-09-18 23:24 | HP ---
History of Present Illness - History of Present Illness Reason for Visit: Shortness of Breath History of Present Illness: This is a 74 F with complex medical history who presented today with shortness of Breath for 5 days. Patient is a poor historian and is also hard of hearing. According to patient, she is on home oxygen(3L) but she ran out of her oxygen 5 days ago. 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 Since then she is having shortness of breath. She also has chronic productive cough but denies change in the nature of cough. She denies fever, chest pain, palpitation , abdominal pain, nausea, vomiting and diarrhea. She has bilateral ankle pain but more on left side after she had mechanical at her home few weeks ago. She is having frequent fall for last 3-4 months and she feels wobbly. She denies head injury and loss of consciousness. She lives alone at home and has treating plant pumper who comes when she needs him. She is independent of Basic ADL and uses walker for ambulation. She has difficulty doing grocery shopping and thinks that walker is not enough for her and will need wheelchair but it was denied by insurance. She was seen in ED on 09/14/19 for fall. In ED, patient shortness of breath improved quickly as soon as she was placed on oxygen. Other vitals stable. Blood work normal. EKG shows normal sinus rhythm with left axis deviation. Chest Xray no acute findings seen although formal read pending. Ankle xray reveals no fracture(official read pending). workers' compensation claims supervisor was contacted and patient was provided with oxygen tank. On ambulation she required 2 assist with walker and was not able to manage her oxygen tank. SO hospitalist team was asked to admit the patient for social and possible rehab need. - Past Medical History Past Medical History: 1. Chronic Hypoxic respiratory failure secondary to COPD on 3L of oxygen at home. 2. Paroxysmal Atrial Fibrillation 3. CAD- IN 4. Aortic Stenosis-s/p TAVR 5. HFpEF 6. Diabetes Mellitus 7. Depression with Anxiety 8. Hypertension 9. Restless LEg SYndrome 10. Hypothyroidism 11. Seizure Disorder 12. CHronic pain 13. Peripheral Vascular Disease 14. History of CVA 15. GERD 16. Gout - Past Surgical History Past Surgical History: 1. TAVR 2. Carpal Tunnel Release 3. Cholecystectomy 4. Hysterectomy - Past Family History Past Family History: Mother had Heart Failure and Father had IN. Both parents due to cardiac problem and brother has substance abuse. - Past Social History Past Social History: Patient lives alone and uses walker for ambulation. Patient is chronic smoker and is currently smoking 1/2 pack per day. She occasionally drinks alcohol; once in a while. She denies recreational drug use. Her surrogate decision maker is her grandson-Omer Alexandra. She is full code. Medications: Home Medications Medication Instructions Recorded Confirmed Type Diazepam TAB(*) [Valium TAB(*)] 5 mg PO BID 10/16/17 09/18/19 History LevoCETirizine TAB (NF) [Xyzal TAB 5 mg PO BEDTIME 10/16/17 09/18/19 History (NF)] Albuterol HFA INHALER* [Ventolin 2 puff INH Q4H PRN 12/16/17 09/18/19 History HFA Inhaler*] Apixaban* [Eliquis*] 5 mg PO BID 12/16/17 09/18/19 History Budesonide/Formote 160/4.5(NF) 2 puff INH BID 12/16/17 09/18/19 History [Symbicort 160/4.5 (NF)] Umeclidinium [place] [Incruse 1 puff PO DAILY 01/29/18 09/18/19 History Ellipta] Albuterol 2.5MG/3ML (0.083%)* 2.5 mg INH Q4H PRN #30 neb.soln 02/01/18 09/18/19 Rx [Ventolin 2.5 MG/3 ML NEB.SHREYA*] Atorvastatin* [Lipitor 40 MG*] 40 mg PO 2100 #30 tab 02/01/18 09/18/19 Rx Metoprolol Succinate 25 mg PO DAILY #30 tab.er.24h 02/01/18 09/18/19 Rx metFORMIN* [Glucophage 500 MG TAB 500 mg PO BID #60 tab 02/01/18 09/18/19 Rx *] Magnesium Oxide 400 mg PO DAILY 12/07/18 09/18/19 History Triamcinolone NASAL SPRAY* 1 puff NASAL DAILY 12/07/18 09/18/19 History [Nasacort Aq Nasal [place]*] Acetaminophen TAB* [Tylenol TAB*] 650 mg PO Q6H PRN tab 12/16/18 09/18/19 Rx Calamine LOTION* 1 applic TOPICAL QID PRN btl 02/19/19 09/18/19 Rx Citalopram TAB* [Celexa TAB*] 10 mg PO DAILY #30 tab 02/19/19 09/18/19 Rx Nicotine PATCH 21 MG/24 HR* 1 patch TRANSDERM DAILY patch 02/19/19 09/18/19 Rx busPIRone TAB* [Buspar TAB*] 5 mg PO TID PRN tab 02/19/19 09/18/19 Rx traMADol TAB* [Ultram*] 50 mg PO Q6H PRN #30 tab MDD 4 tabs 02/19/19 09/18/19 Rx Hydrocortisone Acetate [Vanicream 1 applic TOPICAL TID 03/13/19 09/18/19 History Hc] Methyl Salicylate/Menthol [Muscle 1 applic TOPICAL BID 03/13/19 09/18/19 History Rub Cream] Nitroglycerin TAB 0.4 MG* 0.4 mg SL Q5M PRN 03/13/19 09/18/19 History Pramipexole TAB* [Mirapex TAB*] 1 mg PO BID 03/13/19 09/18/19 History Digoxin TAB* [Lanoxin TAB*] 0.125 mg PO DAILY #0 tab 03/17/19 09/18/19 Rx Potassium Chlor TAB* [Potassium 20 meq PO BID tab.er 03/17/19 09/18/19 Rx Chlor TAB 20 MEQ*] Phenazopyridine TAB* [Pyridium 100 100 mg PO TID tab 03/18/19 09/18/19 Rx mg TAB*] Pregabalin 100 mg CAP (*) [Lyrica 200 mg PO TID 08/06/19 09/18/19 History Allergies/Adverse Reactions: Allergies Allergy/AdvReac Type Severity Reaction Status Date / Time aspirin Allergy Unknown Verified 07/07/19 02:08 Reaction Details Carbapenems Allergy Unknown Verified 07/07/19 02:08 Reaction Details Cephalosporins Allergy Unknown Verified 07/07/19 02:08 Reaction Details ketorolac Allergy Unknown Verified 07/07/19 02:08 Reaction Details morphine Allergy Unknown Verified 07/07/19 02:08 Reaction Details Penicillins Allergy Unknown Verified 07/07/19 02:08 Reaction Details sulfamethoxazole Allergy Unknown Verified 07/07/19 02:08 [From Bactrim] Reaction Details trimethoprim [From Bactrim] Allergy Unknown Verified 07/07/19 02:08 Reaction Details Review of Systems - Review of Systems Constitutional: Negative: Fever, Chills, Sweats, Weakness, Malaise, Other Eyes: Negative: Pain, Vision Change, Conjunctivae Inflammation, Eyelid Inflammation, Redness, Other ENT: Negative: Ear Pain, Ear Discharge, Nose Pain, Nose Discharge, Nose Congestion, Mouth Pain, Mouth Swelling, Throat Pain, Throat Swelling, Other Respiratory: Positive: Cough, Shortness of Breath, Sputum. Negative: Dry, Hemoptysis, SOB with Excertion, Pleuritic Pain, Wheezing Cardiovascular: Negative: Chest Pain, Palpitations, Orthopnea, Paroxysmal Noc. Dyspnea, Edema, Light Headedness, Other Gastrointestinal: Negative: Nausea, Vomiting, Abdominal Pain, Diarrhea, Constipation, Melena, Hematochezia, Other Genitourinary: Negative: Dysuria, Frequency, Incontinence, Hematuria, Retention , Other Musculoskeletal: Positive: Foot Pain. Negative: Neck Pain, Shoulder Pain, Arm Pain, Back Pain, Hand Pain, Leg Pain, Other Skin: Positive: Bruising. Negative: Rash, Lesions, Placido, Other Neurological/Mental Status: Negative: Weakness, Numbness, Incoordination, Change in Speech, Confusion, Seizures, Other Exam Vital Signs: Vital Signs (72 hours) 09/18/19 09/18/19 09/18/19 18:35 18:37 18:49 Temperature 97.0 F Pulse Rate 83 81 85 Respiratory 24 Rate Blood Pressure 178/117 178/117 (mmHg) O2 Sat by Pulse 96 95 96 Oximetry 09/18/19 09/18/19 09/18/19 19:00 19:36 19:49 Temperature Pulse Rate 84 79 Respiratory 26 20 Rate Blood Pressure 113/46 (mmHg) O2 Sat by Pulse 95 96 Oximetry 09/18/19 09/18/19 09/18/19 20:00 20:05 20:35 Temperature Pulse Rate 79 76 Respiratory Rate Blood Pressure 118/68 122/98 (mmHg) O2 Sat by Pulse 96 96 Oximetry 09/18/19 09/18/19 09/18/19 21:00 21:34 22:00 Temperature Pulse Rate 84 80 81 Respiratory Rate Blood Pressure 125/80 (mmHg) O2 Sat by Pulse 96 96 97 Oximetry Exam: GENERAL APPEARANCE: well-nourished female in no acute distress. HEENT: Normocephalic and atraumatic. No scleral icterus. Pupils are equal, round , and reactive to light and accommodation NECK: Supple. Trachea is midline. No evidence of thyroid enlargement. No lymphadenopathy or tenderness. CHEST: Symmetric. Nontender to palpation. LUNGS: Breath sounds are equal bilaterally. Bilateral wheezing heard. HEART: Regular rhythm.normal S1 and S2. No murmurs, gallops, or rubs. ABDOMEN: Soft, nondistended and nontender. Normal bowel sound heard. EXTREMITIES: Decreased range of motion on left ankle because of pain. Distal pulse intact. NEUROLOGIC: Alert, oriented and coperative. No focal deficit noted. Result Diagrams: 09/20/19 04:44 09/20/19 04:44 Assessment/Plan - Assessment/Plan Assessment: This is a 74 F with complex medical history most significant being chronic hypoxic respiraory failure secondary to COPD(on 3L oxygen) presented with shortness of breath secondary to unable to use oxygen and home medication. Found to be hypoxic with quick resolution after oxygen placement. Also has frequent falls and is requiring 2 assist with ambulation with walker. Plan: 1. Shortness of Breath -Etiology: secondary to no oxygen use. Use 3 L of oxygen at home for chronic hypoxic respiratory failure secondary to COPD. -Also has bilateral wheezing- which is also because she ran out of her medication -Quickly resolved with oxygen therapy - workers' compensation claims supervisor consulted- gets oxygen through [facility] - We will continue her home inhalers and oxygen. We don't think she will need steroid at this point. 2. Frequent falls - Patient states that she is having frequent falls for past 3-4 months -No focal deficit appreciated -We will also do Brain CT to rule out any intracranial pathology- If any signs of bleeding then will stop eliquis -Pending urine studies -We will need to be assessed by physical therapist and then can be decided about placement or ambulatory needs. She is currently using walker. -She is also on eliquis so this should be discussed with patient about the risk as she is high risk for bleeding. 3. Ankle pain - Has pain on left ankle secondary to fall -Received fentanyl patch in ED -Also has chronic back pain and is on multiple pain meds at home. -ANkle Xray- negative for fracture; pending official read- Please follow with official read and manage accordingly 4. HFpEF -EF 50-60% -Moderate left and right atrium moderately enlarged - NO evidence of exacerbation 5. CAD -Continue home meds -COntinue eliquis for now- further discussion to be held about the risks 6. pAF - Continue Digoxin- will send digoxin level 7. Diabetes -Continue metformin 8. Depression with Anxiety -Continue buspar, celexa 9. Restless leg Syndrome - On pramipexole 10. DVT prophylaxis -On eliquis 11. Full code Attestation Documenting Resident: Dr. Cain Supervising Physician: Dr. Quinteros Attending/Supervising Physician Comment: Patient seen and discussed with DR. Cain. Agree with assessment and plan. Concern for falls. She is also high risk for polypharmacy and question her medication compliance. Would recommend thorough medication reconciliation prior to discharge and evaluation for SNF Attestation: This service has been performed in part by a resident under the direction of a teaching physician.I, Dr. Quinteros, performed the service, or was physically present during the critical, or morgan portions of the service, furnished by the resident. I participated in the management of the patient.
[2019-09-18] MEDS: traMADol TAB* 50 MG PO PRN (23:35)
[2019-09-18] MEDS ORDERED: fentaNYL PATCH 50 MCG/HR TRANSDERM SCH (23:45)
[2019-09-19] MEDS: Diazepam TAB(*) 5 MG PO SCH ×3 (00:05→22:11)
[2019-09-19] MEDS: Cetirizine* 10 MG TAB PO SCH ×2 (00:42→22:11)
[2019-09-19] MEDS: Acetaminophen TAB* 325 MG PO PRN ×2 (00:42→10:10)
[2019-09-19 01:16] LABS: Digoxin < 0.3 ng/ml (0.8-2.0)
[2019-09-19] MEDS: fentaNYL Patch Check Q Shift 1 NOTE FOLLOW UP SCH ×2 (06:44→19:56)
[2019-09-19] MEDS: SPIRIVA Respimat* (tiotropium) 2.5 mcg/inh Inhaler INH SCH (07:34)
[2019-09-19] MEDS: Mometasone/Formoter 200/5 MDI INH SCH ×2 (07:34→19:17)
[2019-09-19] MEDS: traMADol TAB* 50 MG PO PRN (07:56)
[2019-09-19] MEDS ORDERED: Nicotine PATCH 21 MG/24 HR* PATCH TRANSDERM SCH (09:00)
[2019-09-19] MEDS: Citalopram TAB* 10 MG PO SCH (10:04)
[2019-09-19] MEDS: metFORMIN* 500 MG TAB PO SCH ×2 (10:05→22:12)
[2019-09-19] MEDS: Potassium Chlor TAB* 20 MEQ TAB.ER PO SCH ×2 (10:05→22:13)
[2019-09-19] MEDS: Pramipexole TAB* 0.5 MG PO SCH ×2 (10:05→22:13)
[2019-09-19] MEDS: Magnesium Oxide TAB* 400 MG PO SCH (10:06)
[2019-09-19] MEDS: Pregabalin 100 mg CAP (*) PO SCH ×3 (10:06→22:14)
[2019-09-19] MEDS: Metoprolol Succinate XL TAB* 25 MG PO SCH (10:07)
[2019-09-19] MEDS: Digoxin TAB* 0.125 MG PO SCH (10:08)
[2019-09-19] MEDS: Analgesic BALM* 114 GM TOPICAL SCH ×2 (10:09→22:11)
[2019-09-19] MEDS: Apixaban* 5 MG TAB PO SCH ×2 (10:10→22:11)
[2019-09-19] MEDS: HYDROCORTISONE ACETATE TOPICAL SCH ×3 (10:12→22:11)
[2019-09-19] MEDS: TRIAMCINOLONE NASAL SCH (10:13)
[2019-09-19] MEDS ORDERED: Naloxone* 0.4 MG/ML 1 ML VIAL ONE (14:49)
[2019-09-19 14:55] LABS: ABS Lymphocytes 1.8 10^3/ul (1.0-4.8); ABS Monocytes 0.4 10^3/ul (0-0.8); ABS Neutrophils 3.7 10^3/ul (1.5-7.7); Eosinophil % 0.8 %; Hematocrit 35 % (35-47); Hemoglobin 11.4 g/dL (12.0-16.0); Lymphocyte % 30.4 %; Mean Corpuscular HGB Conc 32 g/dL (31-36); Mean Corpuscular Hemoglobin 31 pg (27-31); Mean Corpuscular Volume 95 fL (80-97); Mean Platelet Volume 7.6 fL (7.4-10.4); Nucleated Red Blood Cells % 0.1; Platelet Count 232 10^3/uL (150-450); Red Blood Count 3.74 10^6 /uL (3.70-4.87); Red Cell Distribution Width 20 % (10-15); White Blood Count 5.9 10^3/uL (3.5-10.8)
[2019-09-19 15:13] LABS: BUN/Creatinine Ratio 37.5 (8-20); Calcium 8.6 mg/dL (8.6-10.3); EGFR African American 85.3 (>60); EGFR Non-African American 70.5 (>60); Potassium 4.3 mmol/L (3.5-5.0)
--- NOTE | 2019-09-19 15:27 | PN ---
Hospitalist Progress Note Date of Service: 09/19/19 S: Ms. Regalado was quite drowsy on exam this morning. She would wake and attempt to speak with me, but was mostly just answering yes/no questions and would quickly fall back asleep. According to nursing, she was more awake later this morning and was able to feed herself breakfast. PT attempted to work with the patient, but they were not particularly successful as patient was not able to participate in a meaningful way. O: Elderly female lying in bed in NAD. Sating well on home oxygen requirements. LS diminished bilaterally with faint expiratory wheezing throughout. HRR. No edema. Abdomen SNT. A/P: Ms. Regalado is a 74 yo F with PMH of COPD on 3L, pAF, HFpEF, CAD, DM, depression/anxiety, HTN, RLS, CVA; presented to the ED with c/o SOB after not using home oxygen or taking home medications for 5 days d/t lack of access and was found to be weak, suspected to need VANNESA placement. Patient was drowsy but arousable this morning, but later in the day became difficult to arouse and was a CAT call. She was found to be in NSR with frequent PACs, BG normal, VS stable, but requiring 6L to maintain sats in the 90s. Found to have mild respiratory acidosis on ABG. Transferred down to ICU for BiPAP. Possible component of unintentional fentanyl overdose - new patch was placed on admission, but it is unclear if she was actually using fentanyl at home or if this is one of the medications she did not have. Sign out given to ICU providers and care transferred to Distribution Sales Manager Service.
--- NOTE | 2019-09-19 17:24 | PN ---
Date of Service: 09/19/19 Critical Care Services: Patient was brought to ICU after CAT call on floor for being unarousable with sonorous respirations. O@ saturation was 90% on 6LNC and difficult to arouse with deep sternal rub. Question if patient having elevated CO2, as she is oxygen dependent at home and was not wearing it prior to admission, may be retaining, versus narcotic induced, as she is wearing fentanyl patch. Patch was removed, and patient transferred to ICU for further care. Vital Signs: Temp Pulse Resp BP SpO2 FiO2 97.4 F 57 18 116/59 95 60 09/19/19 16:00 09/19/19 15:19 09/19/19 16:00 09/19/19 15:19 09/19/19 15:19 09/18 16:00 Physical Exam: General: obtunded HEENT: Normocephalic, atraumatic, non-icteric sclera, moist oral mucosa Neck: soft, supple, no JVD CV: Regular rate and rhythm, no murmurs or rubs Pulm/Chest: shallow respirations, sonorous, no wheeze or rhonchi Abdomen/GI: soft, nontender, nondistended, +BS noted MSK/Skin: warm, dry, intact, +2 pulses+, no edema or cyanosis Neuro: obtunded, intact gag, some grimacing Fluid Balance (Past 24 Hours): I= O= Net Intake & Output 09/17/19 09/18/19 09/19/19 09/20/19 06:59 06:59 06:59 06:59 Intake Total 0 Output Total 0 Balance 0 Weight 189 lb 3.2 oz Intake: Oral 0 Output: Urine 0 Labs: Laboratory Results - last 24 hr 09/18/19 09/18/19 09/18/19 18:55 18:55 18:55 WBC 7.9 RBC 3.96 Hgb 12.3 Hct 36 MCV 92 MCH 31 MCHC 34 RDW 19 H Plt Count 241 MPV 7.4 Neut % (Auto) 60.2 Lymph % (Auto) 31.4 Hanson % (Auto) 7.4 Eos % (Auto) 0.7 Baso % (Auto) 0.3 Absolute Neuts (auto) 4.7 Absolute Lymphs (auto) 2.5 Absolute Monos (auto) 0.6 Absolute Eos (auto) 0.1 Absolute Basos (auto) 0.0 Absolute Nucleated RBC 0.0 Nucleated RBC % 0.0 Patient Temperature ABG pH ABG pH (Temp Correct) ABG pCO2 ABG pCO2 (Temp Corrct ABG pO2 ABG pO2 (Temp Correct ABG HCO3 ABG O2 Saturation ABG Base Excess Respiration Rate O2 Delivery Device Ventilator Type Vent Mode FiO2 Inspiratory Time PEEP Pressure Support Pressure Control EPAP IPAP BiPAP Sodium 141 Potassium 3.8 Chloride 113 H Carbon Dioxide 17 L Anion Gap 11 BUN 29 H Creatinine 0.94 Est GFR ( Amer) 70.8 Est GFR (Non-Af Amer) 58.5 BUN/Creatinine Ratio 30.9 H Glucose 95 POC Glucose (mg/dL) Lactic Acid 0.3 L Calcium 8.7 Total Bilirubin 0.20 AST 18 ALT 9 Alkaline Phosphatase 75 Troponin I 0.01 C-Reactive Protein 2.09 B-Natriuretic Peptide Total Protein 6.8 Albumin 4.1 Globulin 2.7 Albumin/Globulin Ratio 1.5 Digoxin < 0.3 L 09/18/19 09/19/19 09/19/19 18:55 14:10 14:14 WBC RBC Hgb Hct MCV MCH MCHC RDW Plt Count MPV Neut % (Auto) Lymph % (Auto) Hanson % (Auto) Eos % (Auto) Baso % (Auto) Absolute Neuts (auto) Absolute Lymphs (auto) Absolute Monos (auto) Absolute Eos (auto) Absolute Basos (auto) Absolute Nucleated RBC Nucleated RBC % Patient Temperature Not Reportable ABG pH 7.23 L ABG pH (Temp Correct) Not Reportable ABG pCO2 48 H ABG pCO2 (Temp Corrct Not Reportable ABG pO2 85 ABG pO2 (Temp Correct Not Reportable ABG HCO3 19.0 ABG O2 Saturation 96.5 ABG Base Excess -7.5 L Respiration Rate Not Reportable O2 Delivery Device 7 lpm oxymask Ventilator Type Not Reportable Vent Mode Not Reportable FiO2 Not Reportable Inspiratory Time Not Reportable PEEP Not Reportable Pressure Support Not Reportable Pressure Control Not Reportable EPAP Not Reportable IPAP Not Reportable BiPAP Not Reportable Sodium Potassium Chloride Carbon Dioxide Anion Gap BUN Creatinine Est GFR ( Amer) Est GFR (Non-Af Amer) BUN/Creatinine Ratio Glucose POC Glucose (mg/dL) 98 Lactic Acid Calcium Total Bilirubin AST ALT Alkaline Phosphatase Troponin I C-Reactive Protein B-Natriuretic Peptide 81 Total Protein Albumin Globulin Albumin/Globulin Ratio Digoxin 09/19/19 09/19/19 09/19/19 14:36 14:36 14:36 WBC 5.9 RBC 3.74 Hgb 11.4 L Hct 35 MCV 95 MCH 31 MCHC 32 RDW 20 H Plt Count 232 MPV 7.6 Neut % (Auto) 61.5 Lymph % (Auto) 30.4 Hanson % (Auto) 6.9 Eos % (Auto) 0.8 Baso % (Auto) 0.4 Absolute Neuts (auto) 3.7 Absolute Lymphs (auto) 1.8 Absolute Monos (auto) 0.4 Absolute Eos (auto) 0.0 Absolute Basos (auto) 0.0 Absolute Nucleated RBC 0.0 Nucleated RBC % 0.1 Patient Temperature ABG pH ABG pH (Temp Correct) ABG pCO2 ABG pCO2 (Temp Corrct ABG pO2 ABG pO2 (Temp Correct ABG HCO3 ABG O2 Saturation ABG Base Excess Respiration Rate O2 Delivery Device Ventilator Type Vent Mode FiO2 Inspiratory Time PEEP Pressure Support Pressure Control EPAP IPAP BiPAP Sodium 143 Potassium 4.3 Chloride 117 H Carbon Dioxide 20 L Anion Gap 6 BUN 30 H Creatinine 0.80 Est GFR ( Amer) 85.3 Est GFR (Non-Af Amer) 70.5 BUN/Creatinine Ratio 37.5 H Glucose 94 POC Glucose (mg/dL) Lactic Acid < 0.3 L Calcium 8.6 Total Bilirubin AST ALT Alkaline Phosphatase Troponin I C-Reactive Protein B-Natriuretic Peptide Total Protein Albumin Globulin Albumin/Globulin Ratio Digoxin Studies: CT Brain: IMPRESSION: 1. Severely motion degraded exam. No acute intracranial abnormality within this constraint. 2. Mild chronic small vessel ischemic disease is likely. Nutrition: Heart healthy, consistent carb Impression: This is a 74 yo F with PMH of COPD on 3L, pAF, HFpEF, CAD, DM, depression/ anxiety, HTN, RLS, CVA; presented to the ED with c/o SOB after not using home oxygen or taking home medications for 5 days d/t lack of access; now transferred to ICU for decreased LOC and low O2 saturation. Diagnoses: 1. Encephalopathy, likely metabolic 2/2 narcotics vs CO2 retention 2. SOB, with HX of oxygen dependent COPD, non-adherence to home O2 regimen 3. Hx of CAD 4. Hx of CHF 5. DMII 6. PAF Plan: Neuro- - CT head at admission at above with no acute changes - Fentanyl patch removed, narcan push x2 given with good result, patient seems more arousable - Limit narcotics moving forward CV - Hemodynamics stable, continue tele - Per ECHO 03/2019, EF preserved, bioprosthetic aortic valve in good position - Continue digoxin, apixaban, statin and metoprolol at home doses, currently in RSR, no afib noted Pulm - Placed on bipap on admission to ICU, follow mentation and wean as appropriate to home 3L NC when possible - Follow ABGs - CXR as above with no infiltrate - No wheeze, does not appear to be in exacerbation, continue spiriva and inhalers ID- - No fever or leucocytosis or leucopenia, will continue to monitor GI- -Nutrition: HH/CC diet Renal- - Follow I&Os, replete lytes as needed Heme- - No active issues Endo- - Maintain BG<200, insulin protocol as needed, continue metformin Musculsk- - pressure ulcer prophylaxis - OOB to chair in AM - No fentanyl, may have tylenol and tramadol PRN DVT prophylaxis: On apixaban Disposition: Patient requires Critical Care/ICU for Rescue bipap and narcan, will downgrade when appropriate. Patient clinical status: Stable. Code Status: Full code Total Critical Care time is 45 minutes
[2019-09-19] MEDS ORDERED: Nicotine Patch Removal NOTE PATCH OFF SCH (21:00)
[2019-09-19] MEDS: Atorvastatin* 40 MG TAB PO SCH (22:11)
[2019-09-19] MEDS ORDERED: Dextrose 50% Syringe 50 ML* 25 GM/50 ML SYRINGE IV PUSH PRN (22:20)
[2019-09-19 22:58] LABS: Activated Partial Thrombo Time 36.2 seconds (26.0-38.0); INR 1.11 (0.82-1.09)
--- NOTE | 2019-09-20 03:18 | PN ---
Progress Note - Progress Note Date of Service: 09/20/19 Note: Patient's mentation improving on bipap overnight. I will order bedside swallow with RN before allowing PO. Also concern with polypharmacy and what her compliance was at home. I discontinued several of her home medications that may have contributed to her falls.
[2019-09-20 04:54] LABS: ABS Lymphocytes 1.6 10^3/ul (1.0-4.8); ABS Monocytes 0.6 10^3/ul (0-0.8); ABS Neutrophils 3.9 10^3/ul (1.5-7.7); Eosinophil % 0.2 %; Hematocrit 36 % (35-47); Hemoglobin 11.7 g/dL (12.0-16.0); Lymphocyte % 26.3 %; Mean Corpuscular HGB Conc 32 g/dL (31-36); Mean Corpuscular Hemoglobin 31 pg (27-31); Mean Corpuscular Volume 96 fL (80-97); Mean Platelet Volume 7.4 fL (7.4-10.4); Platelet Count 207 10^3/uL (150-450); Red Blood Count 3.76 10^6 /uL (3.70-4.87); Red Cell Distribution Width 20 % (10-15); White Blood Count 6.1 10^3/uL (3.5-10.8)
[2019-09-20 05:10] LABS: Albumin 3.8 g/dL (3.2-5.2); Albumin/Globulin Ratio 1.7 (1-3); BUN/Creatinine Ratio 41.1 (8-20); Calcium 8.8 mg/dL (8.6-10.3); EGFR African American 94.8 (>60); EGFR Non-African American 78.4 (>60); Globulin 2.3 g/dL (2-4); Potassium 4.3 mmol/L (3.5-5.0); Total Bilirubin 0.4 mg/dL (0.2-1.0); Total Protein 6.1 g/dL (6.4-8.9)
[2019-09-20] MEDS: fentaNYL Patch Check Q Shift 1 NOTE FOLLOW UP SCH (07:33)
[2019-09-20] MEDS: Citalopram TAB* 10 MG PO SCH (08:38)
[2019-09-20] MEDS: Metoprolol Succinate XL TAB* 25 MG PO SCH (08:38)
[2019-09-20] MEDS: Magnesium Oxide TAB* 400 MG PO SCH (08:39)
[2019-09-20] MEDS: Apixaban* 5 MG TAB PO SCH ×2 (08:40→20:12)
[2019-09-20] MEDS: Digoxin TAB* 0.125 MG PO SCH (08:40)
[2019-09-20] MEDS: Analgesic BALM* 114 GM TOPICAL SCH ×2 (08:58→20:12)
[2019-09-20] MEDS: TRIAMCINOLONE NASAL SCH (08:58)
[2019-09-20] MEDS: HYDROCORTISONE ACETATE TOPICAL SCH ×3 (08:58→20:00)
--- NOTE | 2019-09-20 10:50 | PN ---
Date of Service: 09/20/19 Critical Care Services: Patient transferred from floor yesterday for unresponsiveness. She was placed on bipap and improved. Bipap taken off this AM and has been tolerating her O2 well. Vital Signs: Temp Pulse Resp BP SpO2 FiO2 98.8 F 65 20 129/58 93 40 09/20/19 08:00 09/20/19 10:01 09/20/19 10:01 09/20/19 10:09/20/19 10:09/19 04:00 Physical Exam: Gen: Lethargic, laying in bed, NAD HEENT: normocephalic, atraumatic, nonicteric sclera, dry oral mucosa Neck: soft, supple Lungs: clear to auscultation, diminished throughout Cardiac: Irregularly irregular, no obvious murmurs Abdomen: obese, soft, nontender, nondistended Extremities/Skin: Warm, dry, intact, chronic venous changed BLE, pulses 2+, BLE tender to touch Neuro: Lethargic but opens eyes to voice, follows commands, PERRL 3mm, protecting airway, moves all extremities to command Fluid Balance (Past 24 Hours): I= O= Net Intake & Output 09/18/19 09/19/19 09/20/19 09/21/19 06:59 06:59 06:59 06:59 Intake Total 0 0 600 Output Total 0 0 Balance 0 0 600 Weight 189 lb 3.2 oz 191 lb Intake: Oral 0 0 600 Output: Urine 0 0 Other: Estimated Void Large Large # Voids 1 Labs: Laboratory Results - last 24 hr 09/19/19 09/19/19 09/19/19 14:10 14:14 14:36 WBC 5.9 RBC 3.74 Hgb 11.4 L Hct 35 MCV 95 MCH 31 MCHC 32 RDW 20 H Plt Count 232 MPV 7.6 Neut % (Auto) 61.5 Lymph % (Auto) 30.4 Wheeler % (Auto) 6.9 Eos % (Auto) 0.8 Baso % (Auto) 0.4 Absolute Neuts (auto) 3.7 Absolute Lymphs (auto) 1.8 Absolute Monos (auto) 0.4 Absolute Eos (auto) 0.0 Absolute Basos (auto) 0.0 Absolute Nucleated RBC 0.0 Nucleated RBC % 0.1 INR (Anticoag Therapy) APTT Patient Temperature Not Reportable ABG pH 7.23 L ABG pH (Temp Correct) Not Reportable ABG pCO2 48 H ABG pCO2 (Temp Corrct Not Reportable ABG pO2 85 ABG pO2 (Temp Correct Not Reportable ABG HCO3 19.0 ABG O2 Saturation 96.5 ABG Base Excess -7.5 L Respiration Rate Not Reportable O2 Delivery Device 7 lpm oxymask Ventilator Type Not Reportable Vent Mode Not Reportable FiO2 Not Reportable Inspiratory Time Not Reportable PEEP Not Reportable Pressure Support Not Reportable Pressure Control Not Reportable EPAP Not Reportable IPAP Not Reportable BiPAP Not Reportable Sodium Potassium Chloride Carbon Dioxide Anion Gap BUN Creatinine Est GFR ( Amer) Est GFR (Non-Af Amer) BUN/Creatinine Ratio Glucose POC Glucose (mg/dL) 98 Lactic Acid Calcium Total Bilirubin AST ALT Alkaline Phosphatase Ammonia Total Protein Albumin Globulin Albumin/Globulin Ratio Vitamin B12 09/19/19 09/19/19 09/19/19 14:36 14:36 17:10 WBC RBC Hgb Hct MCV MCH MCHC RDW Plt Count MPV Neut % (Auto) Lymph % (Auto) Wheeler % (Auto) Eos % (Auto) Baso % (Auto) Absolute Neuts (auto) Absolute Lymphs (auto) Absolute Monos (auto) Absolute Eos (auto) Absolute Basos (auto) Absolute Nucleated RBC Nucleated RBC % INR (Anticoag Therapy) APTT Patient Temperature Not Reportable ABG pH 7.26 L ABG pH (Temp Correct) ABG pCO2 41 ABG pCO2 (Temp Corrct ABG pO2 141 H ABG pO2 (Temp Correct ABG HCO3 18.5 L ABG O2 Saturation 98.6 H ABG Base Excess -8.3 L Respiration Rate Not Reportable O2 Delivery Device Not Reportable Ventilator Type Not Reportable Vent Mode Not Reportable FiO2 Not Reportable Inspiratory Time Not Reportable PEEP Not Reportable Pressure Support Not Reportable Pressure Control Not Reportable EPAP Not Reportable IPAP Not Reportable BiPAP Not Reportable Sodium 143 Potassium 4.3 Chloride 117 H Carbon Dioxide 20 L Anion Gap 6 BUN 30 H Creatinine 0.80 Est GFR ( Amer) 85.3 Est GFR (Non-Af Amer) 70.5 BUN/Creatinine Ratio 37.5 H Glucose 94 POC Glucose (mg/dL) Lactic Acid < 0.3 L Calcium 8.6 Total Bilirubin AST ALT Alkaline Phosphatase Ammonia Total Protein Albumin Globulin Albumin/Globulin Ratio Vitamin B12 09/19/19 09/19/19 09/19/19 22:33 22:33 22:33 WBC RBC Hgb Hct MCV MCH MCHC RDW Plt Count MPV Neut % (Auto) Lymph % (Auto) Wheeler % (Auto) Eos % (Auto) Baso % (Auto) Absolute Neuts (auto) Absolute Lymphs (auto) Absolute Monos (auto) Absolute Eos (auto) Absolute Basos (auto) Absolute Nucleated RBC Nucleated RBC % INR (Anticoag Therapy) 1.11 H APTT 36.2 Patient Temperature ABG pH ABG pH (Temp Correct) ABG pCO2 ABG pCO2 (Temp Corrct ABG pO2 ABG pO2 (Temp Correct ABG HCO3 ABG O2 Saturation ABG Base Excess Respiration Rate O2 Delivery Device Ventilator Type Vent Mode FiO2 Inspiratory Time PEEP Pressure Support Pressure Control EPAP IPAP BiPAP Sodium Potassium Chloride Carbon Dioxide Anion Gap BUN Creatinine Est GFR ( Amer) Est GFR (Non-Af Amer) BUN/Creatinine Ratio Glucose POC Glucose (mg/dL) Lactic Acid Calcium Total Bilirubin AST ALT Alkaline Phosphatase Ammonia 53 Total Protein Albumin Globulin Albumin/Globulin Ratio Vitamin B12 190 09/19/19 09/20/19 09/20/19 22:35 04:44 04:44 WBC 6.1 RBC 3.76 Hgb 11.7 L Hct 36 MCV 96 MCH 31 MCHC 32 RDW 20 H Plt Count 207 MPV 7.4 Neut % (Auto) 64.1 Lymph % (Auto) 26.3 Wheeler % (Auto) 9.1 Eos % (Auto) 0.2 Baso % (Auto) 0.3 Absolute Neuts (auto) 3.9 Absolute Lymphs (auto) 1.6 Absolute Monos (auto) 0.6 Absolute Eos (auto) 0.0 Absolute Basos (auto) 0.0 Absolute Nucleated RBC 0.0 Nucleated RBC % 0.0 INR (Anticoag Therapy) APTT Patient Temperature ABG pH ABG pH (Temp Correct) ABG pCO2 ABG pCO2 (Temp Corrct ABG pO2 ABG pO2 (Temp Correct ABG HCO3 ABG O2 Saturation ABG Base Excess Respiration Rate O2 Delivery Device Ventilator Type Vent Mode FiO2 Inspiratory Time PEEP Pressure Support Pressure Control EPAP IPAP BiPAP Sodium 143 Potassium 4.3 Chloride 116 H Carbon Dioxide 22 Anion Gap 5 BUN 30 H Creatinine 0.73 Est GFR ( Amer) 94.8 Est GFR (Non-Af Amer) 78.4 BUN/Creatinine Ratio 41.1 H Glucose 73 POC Glucose (mg/dL) 93 Lactic Acid Calcium 8.8 Total Bilirubin 0.40 AST 18 ALT 9 Alkaline Phosphatase 68 Ammonia Total Protein 6.1 L Albumin 3.8 Globulin 2.3 Albumin/Globulin Ratio 1.7 Vitamin B12 09/20/19 04:46 WBC RBC Hgb Hct MCV MCH MCHC RDW Plt Count MPV Neut % (Auto) Lymph % (Auto) Wheeler % (Auto) Eos % (Auto) Baso % (Auto) Absolute Neuts (auto) Absolute Lymphs (auto) Absolute Monos (auto) Absolute Eos (auto) Absolute Basos (auto) Absolute Nucleated RBC Nucleated RBC % INR (Anticoag Therapy) APTT Patient Temperature ABG pH ABG pH (Temp Correct) ABG pCO2 ABG pCO2 (Temp Corrct ABG pO2 ABG pO2 (Temp Correct ABG HCO3 ABG O2 Saturation ABG Base Excess Respiration Rate O2 Delivery Device Ventilator Type Vent Mode FiO2 Inspiratory Time PEEP Pressure Support Pressure Control EPAP IPAP BiPAP Sodium Potassium Chloride Carbon Dioxide Anion Gap BUN Creatinine Est GFR ( Amer) Est GFR (Non-Af Amer) BUN/Creatinine Ratio Glucose POC Glucose (mg/dL) 73 Lactic Acid Calcium Total Bilirubin AST ALT Alkaline Phosphatase Ammonia Total Protein Albumin Globulin Albumin/Globulin Ratio Vitamin B12 Studies: CT brain 09/19/19: small vessel disease, otherwise negative Left ankle xray 09/17: no fracture Chest xray 09/17: Bibasilar airspace opacification, s/p aVR Nutrition: Heart healthy, pureed diet Impression: 74 yo F with PMH of COPD on 3L, pAF, HFpEF, CAD, DM, depression/anxiety, HTN, RLS, CVA; presented to the ED with c/o SOB after not using home oxygen or taking home medications for 5 days d/t lack of access; now transferred to ICU for decreased LOC and low O2 saturation. She was placed on bipap and this was removed in AM on 09/20/19. Diagnoses: 1. Encephalopathy, likely secondary to CO2 retention 2. SOB, with history of oxygen dependent COPD, non-adherence to home O2 regimen 3. CAD 4. CHF 5. DM II 6. PAF Plan: Neuro- - CT head at admission at above with no acute changes - Limit narcotics moving forward after receiving narcan yesterday. - Lethargy likely d/t CO2 retention, undiagnosed REGULO CV - Hemodynamics stable, continue tele - Per ECHO 03/2019, EF preserved, bioprosthetic aortic valve in good position - Continue digoxin, apixaban, statin and metoprolol at home doses, currently in RSR, no afib noted Pulm - Placed on bipap on admission to ICU, left on while sleeping and transitioned to NC in AM. Mentation stable but does wax and wane. Likely has undiagnosed REGULO and decreased mental status may be r/t CO2 retention - COPD. No wheeze, does not appear to be in exacerbation, continue spiriva and inhalers ID- - No fever or leukocytosis. Continue to monitor GI- -Nutrition: HH/CC diet. pureed diet d/t missing teeth. Renal- - Follow I&Os, replete lytes as needed Heme- - No active issues - Eliquis 5mg BID for DVT prophylaxis Endo- - Maintain BG<200, insulin protocol as needed, metformin held Musculsk- - pressure ulcer prophylaxis - OOB to chair as tolerated - No fentanyl, may have tylenol and tramadol PRN DVT prophylaxis: On Eliquis 5mg BID Disposition: Patient requires Critical Care/ICU for bipap while sleeping. May transfer to floor if mental status continue to improve Patient clinical status: Stable. Code Status: Full code Critical Care Time: 30 mins
[2019-09-20] MEDS: Mometasone/Formoter 200/5 MDI INH SCH ×2 (13:27→20:19)
[2019-09-20] MEDS: SPIRIVA Respimat* (tiotropium) 2.5 mcg/inh Inhaler INH SCH (13:27)
[2019-09-20] MEDS: Acetaminophen TAB* 325 MG PO PRN ×3 (13:42→22:11)
[2019-09-20] MEDS ORDERED: oxyCODONE TAB* 5 MG TAB PO ONE (18:10)
[2019-09-20] MEDS ORDERED: traMADol TAB* 50 MG PO ONE ×2 (18:11→23:32)
[2019-09-20] MEDS: Cetirizine* 10 MG TAB PO SCH (20:12)
[2019-09-20] MEDS: Atorvastatin* 40 MG TAB PO SCH (20:12)
[2019-09-21] MEDS: Acetaminophen TAB* 325 MG PO PRN ×2 (04:01→10:38)
[2019-09-21] MEDS: SPIRIVA Respimat* (tiotropium) 2.5 mcg/inh Inhaler INH SCH (07:01)
[2019-09-21] MEDS: Mometasone/Formoter 200/5 MDI INH SCH ×2 (07:01→19:21)
[2019-09-21] MEDS: Analgesic BALM* 114 GM TOPICAL SCH ×2 (08:07→20:45)
[2019-09-21] MEDS: Digoxin TAB* 0.125 MG PO SCH (08:11)
[2019-09-21] MEDS: Apixaban* 5 MG TAB PO SCH ×2 (08:11→20:39)
[2019-09-21] MEDS: Metoprolol Succinate XL TAB* 25 MG PO SCH (08:11)
[2019-09-21] MEDS: Citalopram TAB* 10 MG PO SCH (08:11)
[2019-09-21] MEDS: Magnesium Oxide TAB* 400 MG PO SCH (08:11)
[2019-09-21] MEDS: HYDROCORTISONE ACETATE TOPICAL SCH ×3 (08:48→20:25)
[2019-09-21] MEDS: TRIAMCINOLONE NASAL SCH (08:49)
[2019-09-21] MEDS ORDERED: LORazepam TAB(*) 0.5 MG PO ONE (09:40)
[2019-09-21] MEDS: Gabapentin CAP(*) 100 MG PO SCH ×2 (10:39→20:39)
--- NOTE | 2019-09-21 13:06 | PN ---
Subjective Date of Service: 09/21/19 Interval History: Ms. Regalado is not feeling well today. She is having severe bilat leg pain and is not able to have a conversation with me as she is only moaning about leg pain. She typical uses fentanyl for pain and would like something for pain. Denies SOB, CP. Nursing reports patient continues to c/o leg pain. No other concerns. Family History: Unchanged from Admission Social History: Unchanged from Admission Past Medical History: Unchanged from Admission Objective Active Medications: Acetaminophen (Tylenol Tab*) 650 mg PO Q6H PRN PAIN - MILD Albuterol (Ventolin 2.5 Mg/3 Ml Neb.Marjorie*) 2.5 mg INH Q4H PRN SOB/WHEEZING Albuterol (Ventolin Hfa Inhaler*) 2 puff INH Q4H PRN SOB/WHEEZING Apixaban (Eliquis*) 5 mg PO BID HI Atorvastatin Calcium (Lipitor*) 40 mg PO 2100 HI Calamine (Calamine Lotion*) 1 applic TOPICAL QID PRN ITCHING Cetirizine HCl (Zyrtec*) 10 mg PO BEDTIME HI Citalopram Hydrobromide (Celexa Tab*) 10 mg PO DAILY HI Dextrose (D50w Syringe 50 Ml*) 25 gm IV PUSH .FOR FS < 60 - SS PRN FS < 60 Digoxin (Lanoxin Tab*) 0.125 mg PO DAILY [facility] Gabapentin (Neurontin Cap(*)) 100 mg PO BID HI Magnesium Oxide (Magox 400 Tab*) 400 mg PO DAILY HI Metoprolol Succinate (Toprol Xl Tab*) 25 mg PO DAILY HI Mometasone Furoate/Formoterol Fumar (Dulera 200/5 Mdi*) 2 puff INH BID HI; Protocol Multi-Ingredient Liniment/Rub (German Stark*) 1 applic TOPICAL BID HI Nitroglycerin (Nitroglycerin Tab 0.4 Mg*) 0.4 mg SL Q5M PRN ANGINA Nft: Hydrocortisone Acetate [Vanicream Hc] 1 Applic 1 applic TOPICAL TID HI Nft: Triamcinolone (Nasal [place]* 1 Puff) 1 puff NASAL DAILY HI Tiotropium [place] (Spiriva Respimat 2.5 Mcg) 2 puff INH DAILY [facility] Vital Signs - 8 hr 04/12/20 04/12/20 04/12/20 07:57 08:02 08:11 Temperature 98.4 F Pulse Rate 73 72 Respiratory 20 20 Rate Blood Pressure 126/58 (mmHg) O2 Sat by Pulse 94 Oximetry Oxygen Devices in Use Now: Nasal Cannula - 6L Appearance: Elderly female lying in bed, appears to be in pain, but in NAD Ears/Nose/Mouth/Throat: Mucous Membranes Moist Neck: NL Appearance and Movements; NL JVP, Trachea Midline Respiratory: Symmetrical Chest Expansion and Respiratory Effort, Clear to Auscultation Cardiovascular: NL Sounds; No Murmurs; No JVD Extremities: No Edema Neurological: - - Oriented to self, unable to further determine orientation Lines/Tubes/Other Access: Clean, Dry and Intact Peripheral IV Nutrition: Taking PO's Result Diagrams: 09/20/19 04:44 09/20/19 04:44 Assess/Plan/Problems-Billing Assessment: Ms. Regalado is a 74 yo F with PMH of COPD on 3L, pAF, CAD, HFpEF, TAVR, DM, depression, anxiety, HTN, RLS, hypothyroidism, seizures, CVA, chronic pain, PVD ; presented to the ED with SOB after she had not been using oxygen or taking medications at home for 5 days. - Patient Problems (1) Toxic encephalopathy Code(s): G92 - TOXIC ENCEPHALOPATHY Comment: - On the morning of admission, patient was noted to be less responsive - Secondary to narcotic use; fentanyl patch was placed on admission, but unclear if she was actually using this at home; mental status improved after removal of patch, Narcan, and BiPAP - CO2 normal - Limit narcotic use (2) COPD (chronic obstructive pulmonary disease) Code(s): J44.9 - CHRONIC OBSTRUCTIVE PULMONARY DISEASE, UNSPECIFIED Comment: - No evidence of exacerbation - Continue Dulera, Spiriva (3) Chronic respiratory failure Code(s): J96.10 - CHRONIC RESPIRATORY FAILURE, UNSP W HYPOXIA OR HYPERCAPNIA Comment: - Baseline oxygen requirement of 3L (4) Paroxysmal atrial fibrillation Code(s): I48.0 - PAROXYSMAL ATRIAL FIBRILLATION Comment: - NSR on tele - Continue metoprolol, digoxin, Eliquis (5) Chronic heart failure with preserved ejection fraction (HFpEF) Code(s): I50.32 - CHRONIC DIASTOLIC (CONGESTIVE) HEART FAILURE Comment: - Euvolemic - Continue metoprolol, digoxin (6) CAD (coronary artery disease) Status: Acute Code(s): I25.10 - ATHSCL HEART DISEASE OF [place] CORONARY ARTERY W/O ANG PCTRS Comment: - Continue metoprolol, atorvastatin, Eliquis (7) Chronic pain Code(s): G89.29 - OTHER CHRONIC PAIN Comment: - Limit narcotic use - Start gabapentin (8) Diabetes Code(s): E11.9 - TYPE 2 DIABETES MELLITUS WITHOUT COMPLICATIONS Comment: - Good glucose control - Resume metformin (9) HTN (hypertension) Code(s): I10 - ESSENTIAL (PRIMARY) HYPERTENSION Comment: - Normotensive - Continue metoprolol (10) Restless leg syndrome Comment: - Resume Mirapex; start gabapentin (11) Anxiety and depression Code(s): F41.9 - ANXIETY DISORDER, UNSPECIFIED; F32.9 - MAJOR DEPRESSIVE DISORDER, SINGLE EPISODE, UNSPECIFIED Comment: - Continue citalopram, diazepam; resume buspirone (12) HLD (hyperlipidemia) Code(s): E78.5 - HYPERLIPIDEMIA, UNSPECIFIED Comment: - Continue atorvastatin (13) DVT prophylaxis Comment: - Eliquis (14) Full code status Code(s): Z78.9 - OTHER SPECIFIED HEALTH STATUS Comment: Status and Disposition: Inpatient. Anticipate d/c to [facility] pending PT eval. Attending: Omer Sawyer
[2019-09-21] MEDS: busPIRone TAB* 5 MG PO SCH ×2 (13:28→20:39)
[2019-09-21] MEDS ORDERED: QUEtiapine TAB* 25 MG PO ONE (14:35)
[2019-09-21] MEDS ORDERED: traMADol TAB* 50 MG PO ONE (16:43)
[2019-09-21] MEDS: metFORMIN* 500 MG TAB PO SCH (18:22)
[2019-09-21] MEDS: Pramipexole TAB* 0.5 MG PO SCH (20:39)
[2019-09-21] MEDS: Cetirizine* 10 MG TAB PO SCH (20:39)
[2019-09-21] MEDS: Diazepam TAB(*) 5 MG PO SCH (20:39)
[2019-09-21] MEDS: Atorvastatin* 40 MG TAB PO SCH (20:39)
[2019-09-22] MEDS: Mometasone/Formoter 200/5 MDI INH SCH ×2 (07:45→19:12)
[2019-09-22] MEDS: SPIRIVA Respimat* (tiotropium) 2.5 mcg/inh Inhaler INH SCH (07:46)
[2019-09-22] MEDS: Metoprolol Succinate XL TAB* 25 MG PO SCH (10:43)
[2019-09-22] MEDS: Apixaban* 5 MG TAB PO SCH ×2 (10:44→21:05)
[2019-09-22] MEDS: Citalopram TAB* 10 MG PO SCH (10:44)
[2019-09-22] MEDS: Pramipexole TAB* 0.5 MG PO SCH ×2 (10:44→21:05)
[2019-09-22] MEDS: Magnesium Oxide TAB* 400 MG PO SCH (10:44)
[2019-09-22] MEDS: Digoxin TAB* 0.125 MG PO SCH (10:44)
[2019-09-22] MEDS: metFORMIN* 500 MG TAB PO SCH ×2 (10:45→18:02)
[2019-09-22] MEDS: busPIRone TAB* 5 MG PO SCH ×3 (10:45→21:05)
[2019-09-22] MEDS: Diazepam TAB(*) 5 MG PO SCH ×2 (10:45→21:05)
[2019-09-22] MEDS: TRIAMCINOLONE NASAL SCH (12:14)
[2019-09-22] MEDS: Gabapentin CAP(*) 100 MG PO SCH ×3 (12:15→21:05)
[2019-09-22] MEDS: HYDROCORTISONE ACETATE TOPICAL SCH ×3 (12:15→21:50)
[2019-09-22] MEDS: Analgesic BALM* 114 GM TOPICAL SCH ×2 (12:16→21:06)
--- NOTE | 2019-09-22 12:29 | PN ---
Subjective Date of Service: 09/22/19 Interval History: Ms. Regalado is tired this morning. She did not sleep well overnight d/t leg pain. She was having some leg and back pain this morning, but no pain on exam. Denies CP, SOB, cough. No concerns from nursing. Family History: Unchanged from Admission Social History: Unchanged from Admission Past Medical History: Unchanged from Admission Objective Active Medications: Acetaminophen (Tylenol Tab*) 650 mg PO Q6H PRN PAIN - MILD Albuterol (Ventolin 2.5 Mg/3 Ml Neb.Marjorie*) 2.5 mg INH Q4H PRN SOB/WHEEZING Albuterol (Ventolin Hfa Inhaler*) 2 puff INH Q4H PRN SOB/WHEEZING Apixaban (Eliquis*) 5 mg PO BID [facility] Atorvastatin Calcium (Lipitor*) 40 mg PO 2100 HI Buspirone HCl (Buspar Tab*) 5 mg PO TID HI Calamine (Calamine Lotion*) 1 applic TOPICAL QID PRN ITCHING Cetirizine HCl (Zyrtec*) 10 mg PO BEDTIME HI Citalopram Hydrobromide (Celexa Tab*) 10 mg PO DAILY [facility] Dextrose (D50w Syringe 50 Ml*) 25 gm IV PUSH .FOR FS < 60 - SS PRN FS < 60 Diazepam (Valium Tab(*)) 5 mg PO BID [facility] Digoxin (Lanoxin Tab*) 0.125 mg PO DAILY [facility] Gabapentin (Neurontin Cap(*)) 100 mg PO TID [facility] Magnesium Oxide (Magox 400 Tab*) 400 mg PO DAILY [facility] Metformin HCl (Glucophage*) 500 mg PO 0800,1700 HI Metoprolol Succinate (Toprol Xl Tab*) 25 mg PO DAILY [facility] Mometasone Furoate/Formoterol Fumar (Dulera 200/5 Mdi*) 2 puff INH BID HI; Protocol Multi-Ingredient Liniment/Rub (German Stark*) 1 applic TOPICAL BID HI Nitroglycerin (Nitroglycerin Tab 0.4 Mg*) 0.4 mg SL Q5M PRN ANGINA Nft: Hydrocortisone Acetate [Vanicream Hc] 1 Applic 1 applic TOPICAL TID HI Nft: Triamcinolone (Nasal [place]* 1 Puff) 1 puff NASAL DAILY HI Pramipexole Dihydrochloride (Mirapex Tab*) 0.5 mg PO BID HI Tiotropium [place] (Spiriva Respimat 2.5 Mcg) 2 puff INH DAILY [facility] Vital Signs - 8 hr 09/22/19 09/22/19 09/22/19 07:46 08:00 10:44 Temperature 97.8 F Pulse Rate 78 77 66 Respiratory 15 16 Rate Blood Pressure 123/45 (mmHg) O2 Sat by Pulse 93 93 Oximetry Oxygen Devices in Use Now: Nasal Cannula - 4L Appearance: Elderly female lying in bed in NAD Ears/Nose/Mouth/Throat: Mucous Membranes Moist Neck: NL Appearance and Movements; NL JVP, Trachea Midline Respiratory: Symmetrical Chest Expansion and Respiratory Effort, Clear to Auscultation Cardiovascular: NL Sounds; No Murmurs; No JVD, - - Irregular Abdominal: NL Sounds; No Tenderness; No Distention Extremities: No Edema Neurological: Alert and Oriented x 3 - Drowsy, but wakes to voice and can hold an appropriate conversation Lines/Tubes/Other Access: Clean, Dry and Intact Peripheral IV Nutrition: Taking PO's Result Diagrams: 09/20/19 04:44 09/20/19 04:44 Assess/Plan/Problems-Billing Assessment: Ms. Regalado is a 74 yo F with PMH of COPD on 3L, pAF, CAD, HFpEF, TAVR, DM, depression, anxiety, HTN, RLS, hypothyroidism, seizures, CVA, chronic pain, PVD ; presented to the ED with SOB after she had not been using oxygen or taking medications at home for 5 days. - Patient Problems (1) Toxic encephalopathy Code(s): G92 - TOXIC ENCEPHALOPATHY Comment: - On the morning of admission, patient was noted to be less responsive - Secondary to narcotic use; fentanyl patch was placed on admission, but unclear if she was actually using this at home; mental status improved after removal of patch, Narcan, and BiPAP - CO2 normal - Should not resume fentanyl at d/c - Limit narcotic use (2) COPD (chronic obstructive pulmonary disease) Code(s): J44.9 - CHRONIC OBSTRUCTIVE PULMONARY DISEASE, UNSPECIFIED Comment: - No evidence of exacerbation - Continue Dulera, Spiriva (3) Chronic respiratory failure Code(s): J96.10 - CHRONIC RESPIRATORY FAILURE, UNSP W HYPOXIA OR HYPERCAPNIA Comment: - Baseline oxygen requirement of 3L (4) Paroxysmal atrial fibrillation Code(s): I48.0 - PAROXYSMAL ATRIAL FIBRILLATION Comment: - Continue metoprolol, digoxin, Eliquis (5) Chronic heart failure with preserved ejection fraction (HFpEF) Code(s): I50.32 - CHRONIC DIASTOLIC (CONGESTIVE) HEART FAILURE Comment: - Euvolemic - Continue metoprolol, digoxin (6) CAD (coronary artery disease) Status: Acute Code(s): I25.10 - ATHSCL HEART DISEASE OF [place] CORONARY ARTERY W/O ANG PCTRS Comment: - Continue metoprolol, atorvastatin, Eliquis (7) Chronic pain Code(s): G89.29 - OTHER CHRONIC PAIN Comment: - Limit narcotic use - Pain seems to have responded well to gabapentin - Continue gabapentin (increased to TID) (8) Diabetes Code(s): E11.9 - TYPE 2 DIABETES MELLITUS WITHOUT COMPLICATIONS Comment: - Good glucose control - Continue metformin (9) HTN (hypertension) Code(s): I10 - ESSENTIAL (PRIMARY) HYPERTENSION Comment: - Normotensive - Continue metoprolol (10) Restless leg syndrome Comment: - Continue Mirapex (11) Anxiety and depression Code(s): F41.9 - ANXIETY DISORDER, UNSPECIFIED; F32.9 - MAJOR DEPRESSIVE DISORDER, SINGLE EPISODE, UNSPECIFIED Comment: - Continue citalopram, diazepam, buspirone (12) HLD (hyperlipidemia) Code(s): E78.5 - HYPERLIPIDEMIA, UNSPECIFIED Comment: - Continue atorvastatin (13) DVT prophylaxis Comment: - Eliquis (14) Full code status Code(s): Z78.9 - OTHER SPECIFIED HEALTH STATUS Comment: Status and Disposition: Inpatient. Medically stable. Awaiting [facility] bed. Attending: Omer Sawyer
[2019-09-22] MEDS: Acetaminophen TAB* 325 MG PO PRN (15:02)
[2019-09-22] MEDS: Atorvastatin* 40 MG TAB PO SCH (21:05)
[2019-09-22] MEDS: Cetirizine* 10 MG TAB PO SCH (21:05)
[2019-09-23] MEDS: Mometasone/Formoter 200/5 MDI INH SCH ×2 (07:45→20:21)
[2019-09-23] MEDS: SPIRIVA Respimat* (tiotropium) 2.5 mcg/inh Inhaler INH SCH (07:45)
[2019-09-23] MEDS: Diazepam TAB(*) 5 MG PO SCH ×2 (08:04→20:49)
[2019-09-23] MEDS: Metoprolol Succinate XL TAB* 25 MG PO SCH (08:04)
[2019-09-23] MEDS: busPIRone TAB* 5 MG PO SCH ×3 (08:04→20:51)
[2019-09-23] MEDS: Citalopram TAB* 10 MG PO SCH (08:05)
[2019-09-23] MEDS: Apixaban* 5 MG TAB PO SCH ×2 (08:05→20:50)
[2019-09-23] MEDS: Magnesium Oxide TAB* 400 MG PO SCH (08:05)
[2019-09-23] MEDS: Gabapentin CAP(*) 100 MG PO SCH ×3 (08:05→20:51)
[2019-09-23] MEDS: Pramipexole TAB* 0.5 MG PO SCH ×2 (08:05→20:50)
[2019-09-23] MEDS: metFORMIN* 500 MG TAB PO SCH ×2 (08:05→16:17)
[2019-09-23] MEDS: HYDROCORTISONE ACETATE TOPICAL SCH ×3 (08:07→20:52)
[2019-09-23] MEDS: TRIAMCINOLONE NASAL SCH (08:07)
[2019-09-23] MEDS: Analgesic BALM* 114 GM TOPICAL SCH ×2 (08:08→20:51)
[2019-09-23] MEDS: Digoxin TAB* 0.125 MG PO SCH (10:44)
[2019-09-23] MEDS ORDERED: Gabapentin CAP(*) 100 MG PO ONE (16:25)
[2019-09-23] MEDS ORDERED: Polyethylene Glycol 3350* 17 GM PACKET PO PRN (16:26)
[2019-09-23] MEDS: traMADol TAB* 50 MG PO PRN (16:41)
--- NOTE | 2019-09-23 17:41 | PN ---
Subjective Date of Service: 09/23/19 Interval History: reports improvement in breathing. pt oriented and answering questions appropriately Family History: Unchanged from Admission Social History: Unchanged from Admission Past Medical History: Unchanged from Admission Objective Active Medications: Acetaminophen (Tylenol Tab*) 650 mg PO Q6H PRN PRN Reason: PAIN - MILD Last Admin: 09/22/19 15:02 Dose: 650 mg Albuterol (Ventolin 2.5 Mg/3 Ml Neb.Marjorie*) 2.5 mg INH Q4H PRN PRN Reason: SOB/WHEEZING Albuterol (Ventolin Hfa Inhaler*) 2 puff INH Q4H PRN PRN Reason: SOB/WHEEZING Apixaban (Eliquis*) 5 mg PO BID [facility] Last Admin: 09/23/19 08:05 Dose: 5 mg Atorvastatin Calcium (Lipitor*) 40 mg PO 2100 [facility] Last Admin: 09/22/19 21:05 Dose: 40 mg Buspirone HCl (Buspar Tab*) 5 mg PO TID [facility] Last Admin: 09/23/19 13:46 Dose: 5 mg Calamine (Calamine Lotion*) 1 applic TOPICAL QID PRN PRN Reason: ITCHING Cetirizine HCl (Zyrtec*) 10 mg PO BEDTIME [facility] Last Admin: 09/22/19 21:05 Dose: 10 mg Citalopram Hydrobromide (Celexa Tab*) 10 mg PO DAILY [facility] Last Admin: 09/23/19 08:05 Dose: 10 mg Dextrose (D50w Syringe 50 Ml*) 25 gm IV PUSH .FOR FS < 60 - SS PRN PRN Reason: FS < 60 Diazepam (Valium Tab(*)) 5 mg PO BID [facility] Last Admin: 09/23/19 08:04 Dose: 5 mg Digoxin (Lanoxin Tab*) 0.125 mg PO DAILY [facility] Last Admin: 09/23/19 10:44 Dose: 0.125 mg Gabapentin (Neurontin Cap(*)) 100 mg PO TID [facility] Last Admin: 09/23/19 13:46 Dose: 100 mg Magnesium Oxide (Magox 400 Tab*) 400 mg PO DAILY [facility] Last Admin: 09/23/19 08:05 Dose: 400 mg Metformin HCl (Glucophage*) 500 mg PO 0800,1700 [facility] Last Admin: 09/23/19 16:17 Dose: 500 mg Metoprolol Succinate (Toprol Xl Tab*) 25 mg PO DAILY [facility] Last Admin: 09/23/19 08:04 Dose: 25 mg Mometasone Furoate/Formoterol Fumar (Dulera 200/5 Mdi*) 2 puff INH BID [facility]; Protocol Last Admin: 09/23/19 07:45 Dose: 2 puff Multi-Ingredient Liniment/Rub (German Stark*) 1 applic TOPICAL BID [facility] Last Admin: 09/23/19 08:08 Dose: 1 applic Nitroglycerin (Nitroglycerin Tab 0.4 Mg*) 0.4 mg SL Q5M PRN PRN Reason: ANGINA Nft: Hydrocortisone Acetate [Vanicream Hc] 1 Applic 1 applic TOPICAL TID [facility] Last Admin: 09/23/19 13:41 Dose: Not Given Nft: Triamcinolone (Nasal [place]* 1 Puff) 1 puff NASAL DAILY [facility] Last Admin: 09/23/19 08:07 Dose: Not Given Polyethylene Glycol/Electrolytes (Miralax (17 Gm Dose Paco)) 17 gm PO DAILY PRN PRN Reason: CONSTIPATION Last Admin: 09/23/19 16:42 Dose: 17 gm Pramipexole Dihydrochloride (Mirapex Tab*) 0.5 mg PO BID [facility] Last Admin: 09/23/19 08:05 Dose: 0.5 mg Tiotropium [place] (Spiriva Respimat 2.5 Mcg) 2 puff INH DAILY [facility] Last Admin: 09/23/19 07:45 Dose: 2 puff Tramadol HCl (Ultram*) 50 mg PO Q6H PRN PRN Reason: PAIN - MODERATE Last Admin: 09/23/19 16:41 Dose: 50 mg Vital Signs - 8 hr 09/23/19 09/23/19 09/23/19 10:44 10:46 10:47 Temperature Pulse Rate 57 Respiratory 18 18 Rate Blood Pressure (mmHg) O2 Sat by Pulse Oximetry 09/23/19 09/23/19 09/23/19 11:46 13:46 15:48 Temperature 97.5 F Pulse Rate 60 Respiratory 20 16 16 Rate Blood Pressure 136/59 (mmHg) O2 Sat by Pulse 94 Oximetry 09/23/19 09/23/19 16:00 16:41 Temperature 98.0 F Pulse Rate 56 Respiratory 22 16 Rate Blood Pressure 119/72 (mmHg) O2 Sat by Pulse 96 Oximetry Oxygen Devices in Use Now: Nasal Cannula Eyes: No Scleral Icterus Ears/Nose/Mouth/Throat: NL Teeth, Lips, Gums Neck: NL Appearance and Movements; NL JVP Respiratory: Symmetrical Chest Expansion and Respiratory Effort, Clear to Auscultation Cardiovascular: NL Sounds; No Murmurs; No JVD, RRR Abdominal: NL Sounds; No Tenderness; No Distention Extremities: No Edema Neurological: Alert and Oriented x 3 Result Diagrams: 09/20/19 04:44 09/20/19 04:44 Assess/Plan/Problems-Billing Assessment: Ms. Regalado is a 74 yo F with PMH of COPD on 3L, pAF, CAD, HFpEF, TAVR, DM, depression, anxiety, HTN, RLS, hypothyroidism, seizures, CVA, chronic pain, PVD ; presented to the ED with SOB after she had not been using oxygen or taking medications at home for 5 days. - Patient Problems (1) Toxic encephalopathy Current Visit: Yes Status: Acute Code(s): G92 - TOXIC ENCEPHALOPATHY SNOMED Code(s): 48286392 Comment: - On the morning of admission, patient was noted to be less responsive - Secondary to narcotic use; fentanyl patch was placed on admission, but unclear if she was actually using this at home; mental status improved after removal of patch, Narcan, and BiPAP - CO2 normal - Should not resume fentanyl at d/c - Limit narcotic use (2) Anxiety and depression Current Visit: Yes Status: Acute Code(s): F41.9 - ANXIETY DISORDER, UNSPECIFIED; F32.9 - MAJOR DEPRESSIVE DISORDER, SINGLE EPISODE, UNSPECIFIED SNOMED Code(s): 306545144 Comment: - Continue citalopram, diazepam, buspirone (3) Chronic heart failure with preserved ejection fraction (HFpEF) Current Visit: Yes Status: Acute Code(s): I50.32 - CHRONIC DIASTOLIC ( CONGESTIVE) HEART FAILURE SNOMED Code(s): 269875519 Comment: - Euvolemic - Continue metoprolol, digoxin (4) Chronic pain Current Visit: Yes Status: Acute Code(s): G89.29 - OTHER CHRONIC PAIN SNOMED Code(s): 60523389 Comment: - Limit narcotic use - Pain seems to have responded well to gabapentin - Continue gabapentin (increased to TID) -Can increase dose if needed -1 extra dose today -Restart tramadol -c/o 03/20 pain today (5) Chronic respiratory failure Current Visit: Yes Status: Acute Code(s): J96.10 - CHRONIC RESPIRATORY FAILURE, UNSP W HYPOXIA OR HYPERCAPNIA SNOMED Code(s): 19204351 Comment: - Baseline oxygen requirement of 3L (6) Acute kidney injury Current Visit: No Status: Acute Code(s): N17.9 - ACUTE KIDNEY FAILURE, UNSPECIFIED SNOMED Code(s): 75221842 Comment: - Resolved - Secondary to hypovolemia (7) CAD (coronary artery disease) Current Visit: No Status: Acute Code(s): I25.10 - ATHSCL HEART DISEASE OF [place] CORONARY ARTERY W/O ANG PCTRS SNOMED Code(s): 07131430 Comment: - Continue metoprolol, atorvastatin, Eliquis Status and Disposition: Inpatient. Awaiting [facility] bed.
[2019-09-23] MEDS: Atorvastatin* 40 MG TAB PO SCH (20:50)
[2019-09-23] MEDS: Acetaminophen TAB* 325 MG PO PRN (20:50)
[2019-09-23] MEDS: Cetirizine* 10 MG TAB PO SCH (20:51)
[2019-09-24 06:44] LABS: ABS Eosinophils 0.1 10^3/ul (0-0.6); ABS Lymphocytes 1.8 10^3/ul (1.0-4.8); ABS Monocytes 0.6 10^3/ul (0-0.8); Eosinophil % 1.2 %; Hematocrit 36 % (35-47); Hemoglobin 12.2 g/dL (12.0-16.0); Lymphocyte % 32.8 %; Mean Corpuscular HGB Conc 34 g/dL (31-36); Mean Corpuscular Hemoglobin 32 pg (27-31); Mean Corpuscular Volume 94 fL (80-97); Mean Platelet Volume 7.8 fL (7.4-10.4); Platelet Count 184 10^3/uL (150-450); Red Blood Count 3.87 10^6 /uL (3.70-4.87); Red Cell Distribution Width 18 % (10-15); White Blood Count 5.4 10^3/uL (3.5-10.8)
[2019-09-24 07:02] LABS: BUN/Creatinine Ratio 22.7 (8-20); Calcium 9.4 mg/dL (8.6-10.3); EGFR African American 91.9 (>60); Potassium 4.3 mmol/L (3.5-5.0)
[2019-09-24] MEDS: Mometasone/Formoter 200/5 MDI INH SCH ×2 (07:24→23:30)
[2019-09-24] MEDS: SPIRIVA Respimat* (tiotropium) 2.5 mcg/inh Inhaler INH SCH (07:24)
[2019-09-24] MEDS: HYDROCORTISONE ACETATE TOPICAL SCH ×3 (10:09→21:48)
[2019-09-24] MEDS: Magnesium Oxide TAB* 400 MG PO SCH (10:10)
[2019-09-24] MEDS: Citalopram TAB* 10 MG PO SCH (10:10)
[2019-09-24] MEDS: Diazepam TAB(*) 5 MG PO SCH ×2 (10:10→21:45)
[2019-09-24] MEDS: Pramipexole TAB* 0.5 MG PO SCH ×2 (10:10→21:46)
[2019-09-24] MEDS: metFORMIN* 500 MG TAB PO SCH ×2 (10:11→17:28)
[2019-09-24] MEDS: Apixaban* 5 MG TAB PO SCH ×2 (10:11→21:45)
[2019-09-24] MEDS: Metoprolol Succinate XL TAB* 25 MG PO SCH (10:11)
[2019-09-24] MEDS: traMADol TAB* 50 MG PO PRN ×2 (10:11→19:20)
[2019-09-24] MEDS: busPIRone TAB* 5 MG PO SCH ×3 (10:11→21:45)
[2019-09-24] MEDS: Gabapentin CAP(*) 100 MG PO SCH ×3 (10:12→21:45)
[2019-09-24] MEDS: Analgesic BALM* 114 GM TOPICAL SCH ×2 (10:12→21:49)
[2019-09-24] MEDS: TRIAMCINOLONE NASAL SCH (10:12)
[2019-09-24] MEDS: Digoxin TAB* 0.125 MG PO SCH (10:27)
--- NOTE | 2019-09-24 12:43 | PN ---
Subjective Date of Service: 09/24/19 Interval History: Reports improvement in breathing.Denies any complaints. Does not have CPAP at home. Using here at night with improvement Family History: Unchanged from Admission Social History: Unchanged from Admission Past Medical History: Unchanged from Admission Objective Active Medications: Acetaminophen (Tylenol Tab*) 650 mg PO Q6H PRN PRN Reason: PAIN - MILD Last Admin: 09/23/19 20:50 Dose: 650 mg Albuterol (Ventolin 2.5 Mg/3 Ml Neb.Marjorie*) 2.5 mg INH Q4H PRN PRN Reason: SOB/WHEEZING Albuterol (Ventolin Hfa Inhaler*) 2 puff INH Q4H PRN PRN Reason: SOB/WHEEZING Apixaban (Eliquis*) 5 mg PO BID [facility] Last Admin: 09/24/19 10:11 Dose: 5 mg Atorvastatin Calcium (Lipitor*) 40 mg PO 2100 [facility] Last Admin: 09/23/19 20:50 Dose: 40 mg Buspirone HCl (Buspar Tab*) 5 mg PO TID [facility] Last Admin: 09/24/19 10:11 Dose: 5 mg Calamine (Calamine Lotion*) 1 applic TOPICAL QID PRN PRN Reason: ITCHING Cetirizine HCl (Zyrtec*) 10 mg PO BEDTIME [facility] Last Admin: 09/23/19 20:51 Dose: 10 mg Citalopram Hydrobromide (Celexa Tab*) 10 mg PO DAILY [facility] Last Admin: 09/24/19 10:10 Dose: 10 mg Dextrose (D50w Syringe 50 Ml*) 25 gm IV PUSH .FOR FS < 60 - SS PRN PRN Reason: FS < 60 Diazepam (Valium Tab(*)) 5 mg PO BID [facility] Last Admin: 09/24/19 10:10 Dose: 5 mg Digoxin (Lanoxin Tab*) 0.125 mg PO DAILY [facility] Last Admin: 09/24/19 10:27 Dose: 0.125 mg Gabapentin (Neurontin Cap(*)) 100 mg PO TID [facility] Last Admin: 09/24/19 10:12 Dose: 100 mg Magnesium Oxide (Magox 400 Tab*) 400 mg PO DAILY [facility] Last Admin: 09/24/19 10:10 Dose: 400 mg Metformin HCl (Glucophage*) 500 mg PO 0800,1700 [facility] Last Admin: 09/24/19 10:11 Dose: 500 mg Metoprolol Succinate (Toprol Xl Tab*) 25 mg PO DAILY [facility] Last Admin: 09/24/19 10:11 Dose: 25 mg Mometasone Furoate/Formoterol Fumar (Dulera 200/5 Mdi*) 2 puff INH BID [facility]; Protocol Last Admin: 09/24/19 07:24 Dose: 2 puff Multi-Ingredient Liniment/Rub (German Stark*) 1 applic TOPICAL BID [facility] Last Admin: 09/24/19 10:12 Dose: 1 applic Nitroglycerin (Nitroglycerin Tab 0.4 Mg*) 0.4 mg SL Q5M PRN PRN Reason: ANGINA Nft: Hydrocortisone Acetate [Vanicream Hc] 1 Applic 1 applic TOPICAL TID [facility] Last Admin: 09/24/19 10:09 Dose: Not Given Nft: Triamcinolone (Nasal [place]* 1 Puff) 1 puff NASAL DAILY [facility] Last Admin: 09/24/19 10:12 Dose: Not Given Polyethylene Glycol/Electrolytes (Miralax (17 Gm Dose Paco)) 17 gm PO DAILY PRN PRN Reason: CONSTIPATION Last Admin: 09/23/19 16:42 Dose: 17 gm Pramipexole Dihydrochloride (Mirapex Tab*) 0.5 mg PO BID [facility] Last Admin: 09/24/19 10:10 Dose: 0.5 mg Tiotropium [place] (Spiriva Respimat 2.5 Mcg) 2 puff INH DAILY [facility] Last Admin: 09/24/19 07:24 Dose: 2 puff Tramadol HCl (Ultram*) 50 mg PO Q6H PRN PRN Reason: PAIN - MODERATE Last Admin: 09/24/19 10:11 Dose: 50 mg Vital Signs - 8 hr 09/24/19 09/24/19 09/24/19 07:24 07:42 10:10 Temperature 98.4 F Pulse Rate 77 64 Respiratory 16 20 20 Rate Blood Pressure 115/47 (mmHg) O2 Sat by Pulse 100 96 Oximetry 09/24/19 09/24/19 09/24/19 10:11 10:12 10:27 Temperature Pulse Rate 60 Respiratory 20 20 Rate Blood Pressure (mmHg) O2 Sat by Pulse Oximetry 09/24/19 11:28 Temperature 98.1 F Pulse Rate 53 Respiratory 20 Rate Blood Pressure 132/55 (mmHg) O2 Sat by Pulse 97 Oximetry Oxygen Devices in Use Now: Nasal Cannula Eyes: No Scleral Icterus Ears/Nose/Mouth/Throat: NL Teeth, Lips, Gums Neck: NL Appearance and Movements; NL JVP Respiratory: Symmetrical Chest Expansion and Respiratory Effort Cardiovascular: NL Sounds; No Murmurs; No JVD Abdominal: NL Sounds; No Tenderness; No Distention Extremities: No Edema Neurological: Alert and Oriented x 3 Result Diagrams: 09/24/19 06:04 09/24/19 06:04 Assess/Plan/Problems-Billing Assessment: Ms. Regalado is a 74 yo F with PMH of COPD on 3L, pAF, CAD, HFpEF, TAVR, DM, depression, anxiety, HTN, RLS, hypothyroidism, seizures, CVA, chronic pain, PVD ; presented to the ED with SOB after she had not been using oxygen or taking medications at home for 5 days. - Patient Problems (1) Toxic encephalopathy Current Visit: Yes Status: Acute Code(s): G92 - TOXIC ENCEPHALOPATHY SNOMED Code(s): 04068813 Comment: - On the morning of admission, patient was noted to be less responsive - Secondary to narcotic use; fentanyl patch was placed on admission, but unclear if she was actually using this at home; mental status improved after removal of patch, Narcan, and BiPAP - CO2 normal - Should not resume fentanyl at d/c - Limit narcotic use (2) Anxiety and depression Current Visit: Yes Status: Acute Code(s): F41.9 - ANXIETY DISORDER, UNSPECIFIED; F32.9 - MAJOR DEPRESSIVE DISORDER, SINGLE EPISODE, UNSPECIFIED SNOMED Code(s): 077354147 Comment: - Continue citalopram, diazepam, buspirone (3) Chronic heart failure with preserved ejection fraction (HFpEF) Current Visit: Yes Status: Acute Code(s): I50.32 - CHRONIC DIASTOLIC ( CONGESTIVE) HEART FAILURE SNOMED Code(s): 252729313 Comment: - Euvolemic - Continue metoprolol, digoxin (4) Chronic pain Current Visit: Yes Status: Acute Code(s): G89.29 - OTHER CHRONIC PAIN SNOMED Code(s): 95398743 Comment: - Limit narcotic use - Pain seems to have responded well to gabapentin - Continue gabapentin (increased to TID) -Can increase dose if needed -1 extra dose yesterday -Restarted tramadol (5) Chronic respiratory failure Current Visit: Yes Status: Acute Code(s): J96.10 - CHRONIC RESPIRATORY FAILURE, UNSP W HYPOXIA OR HYPERCAPNIA SNOMED Code(s): 51805575 Comment: - Baseline oxygen requirement of 3L (6) Acute kidney injury Current Visit: No Status: Acute Code(s): N17.9 - ACUTE KIDNEY FAILURE, UNSPECIFIED SNOMED Code(s): 87185814 Comment: - Resolved - Secondary to hypovolemia (7) CAD (coronary artery disease) Current Visit: No Status: Acute Code(s): I25.10 - ATHSCL HEART DISEASE OF [place] CORONARY ARTERY W/O ANG PCTRS SNOMED Code(s): 98068557 Comment: - Continue metoprolol, atorvastatin, Eliquis Status and Disposition: Inpatient.
[2019-09-24] MEDS: Cetirizine* 10 MG TAB PO SCH (21:45)
[2019-09-24] MEDS: Atorvastatin* 40 MG TAB PO SCH (21:46)
[2019-09-24] MEDS: Acetaminophen TAB* 325 MG PO PRN (21:46)
[2019-09-25] MEDS: traMADol TAB* 50 MG PO PRN (02:44)
[2019-09-25 04:50] LABS: ABS Eosinophils 0.1 10^3/ul (0-0.6); ABS Monocytes 0.5 10^3/ul (0-0.8); ABS Neutrophils 3.2 10^3/ul (1.5-7.7); Eosinophil % 1.4 %; Hematocrit 35 % (35-47); Hemoglobin 11.8 g/dL (12.0-16.0); Lymphocyte % 34.2 %; Mean Corpuscular HGB Conc 34 g/dL (31-36); Mean Corpuscular Hemoglobin 32 pg (27-31); Mean Corpuscular Volume 94 fL (80-97); Mean Platelet Volume 7.7 fL (7.4-10.4); Platelet Count 158 10^3/uL (150-450); Red Blood Count 3.72 10^6 /uL (3.70-4.87); Red Cell Distribution Width 18 % (10-15); White Blood Count 5.9 10^3/uL (3.5-10.8)
[2019-09-25 05:07] LABS: BUN/Creatinine Ratio 27.6 (8-20); Calcium 8.9 mg/dL (8.6-10.3); EGFR African American 90.5 (>60); EGFR Non-African American 74.8 (>60); Potassium 4.5 mmol/L (3.5-5.0)
[2019-09-25] MEDS: SPIRIVA Respimat* (tiotropium) 2.5 mcg/inh Inhaler INH SCH (07:08)
[2019-09-25] MEDS: Mometasone/Formoter 200/5 MDI INH SCH (07:08)
[2019-09-25] MEDS ORDERED: Metoprolol Succinate XL TAB* 25 MG PO SCH (09:00)
[2019-09-25] MEDS: Analgesic BALM* 114 GM TOPICAL SCH (09:17)
[2019-09-25] MEDS: Magnesium Oxide TAB* 400 MG PO SCH (09:19)
[2019-09-25] MEDS: Digoxin TAB* 0.125 MG PO SCH (09:19)
[2019-09-25] MEDS: Apixaban* 5 MG TAB PO SCH (09:20)
[2019-09-25] MEDS: busPIRone TAB* 5 MG PO SCH ×2 (09:20→13:30)
[2019-09-25] MEDS: Gabapentin CAP(*) 100 MG PO SCH ×2 (09:20→13:30)
[2019-09-25] MEDS: Pramipexole TAB* 0.5 MG PO SCH (09:20)
[2019-09-25] MEDS: metFORMIN* 500 MG TAB PO SCH (09:20)
[2019-09-25] MEDS: Citalopram TAB* 10 MG PO SCH (09:20)
[2019-09-25] MEDS: Diazepam TAB(*) 5 MG PO SCH (09:20)
[2019-09-25] MEDS: HYDROCORTISONE ACETATE TOPICAL SCH ×2 (09:29→13:37)
[2019-09-25] MEDS: TRIAMCINOLONE NASAL SCH (09:29)
[2019-09-25] MEDS: Acetaminophen TAB* 325 MG PO PRN (13:30)
[2019-09-25 13:37] VITALS: BP 128/62
--- NOTE | 2019-09-25 14:51 | DS ---
DISCHARGE SUMMARY: DATE OF ADMISSION: 09/18/19 DATE OF DISCHARGE: 09/25/19 PRIMARY DIAGNOSES: 1. Acute on chronic respiratory failure. 2. Hypercapnic respiratory failure. 3. Encephalopathy secondary to CO2 retention and narcotic use. SECONDARY DIAGNOSES: 1. Chronic hypoxic respiratory failure secondary to chronic obstructive pulmonary disease, on 3 L of oxygen at baseline. 2. Paroxysmal atrial fibrillation. 3. Coronary artery disease/history of myocardial infarction. 4. Aortic stenosis, status post TAVR. 5. Heart failure with preserved ejection fraction. 6. Diabetes mellitus. 7. Depression with anxiety. 8. Hypertension. 9. Restless leg syndrome. 10. Hypothyroidism. 11. Seizure disorder. 12. Chronic pain. 13. Peripheral vascular disease. 14. History of cerebrovascular disease. 15. Gastroesophageal reflux disease. 16. Gout. HOSPITAL COURSE: A 74-year-old female with multiple medical problems as listed above came in to the hospital with complaints of significant shortness of breath. 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 The patient has also been feeling more weak, experiencing more falls in the last 3 to 4 months. The patient's condition was initially managed on the floor and the patient was started on oxygen, however, soon the patient became drowsy and lethargic and was unable to be aroused and had a CAT call on 09/19/19. The patient needed 6 L of oxygen to maintain sats in the 90s. The patient was also noted to be in respiratory acidosis with elevated CO2 levels. The patient was transferred to the ICU for BiPAP. The patient's fentanyl patch was also stopped. The patient was managed in the ICU on NIPPV with improvement and her COPD was managed. The patient had brain CT during this episode on 09/19/19, which showed no acute intracranial abnormality, periventricular and subcortical white matter changes, likely secondary to chronic small vessel ischemic injury. Similar in appearance to the prior CT on 07/07/19. The patient was transferred out of the ICU and currently has been using her BiPAP at night and has been continued on her COPD medications. The patient is also on Eliquis and rate control medications for her atrial fibrillation. With respect to her encephalopathy, this is improved and the patient is alert and is at baseline. The patient's fentanyl patch has been held and the patient has been continued on her home dose Valium, gabapentin and tramadol has been restarted for pain control with good effect. The patient requires further physical therapy for her gait disturbance and the patient at this time is being discharged to rehabilitation at [facility]. Vitals and labs noted to be stable at the time of discharge. Temperature 97.6, pulse 59, respiratory rate 20, oxygen saturation 94% on 3 L, blood pressure 128/62. HISTORY AND PHYSICAL: HEENT: NCAT. Heart: S1, S2 present. Regular at the time of exam. Lungs: Clear to auscultation bilaterally. Abdomen: Soft, distended. No rebound, no guarding. Extremities: Noted to have edema. Neuro: Alert and oriented x3. MEDICATION LIST: 1. Tramadol 50 mg p.o. q.6 hours p.r.n. 2. Metformin 500mg p.o. b.i.d. 3. BuSpar 5 mg p.o. t.i.d. 4. Ellipta 1 puff p.o. daily. 5. Nasacort 1 puff daily. 6. Lyrica 200 mg p.o. t.i.d. 7. Pramipexole 1 mg p.o. b.i.d. 8. Potassium chloride 20 mEq p.o. b.i.d., we will hold off on potassium. 9. Nitroglycerin 0.4 mg sublingual q.5 minutes p.r.n. 10. Nicotine patch 21 mg daily. 11. Magnesium oxide 400 mg p.o. daily. 12. Xyzal 5 mg p.o. at bedtime. 13. Hydrocortisone ointment t.i.d. 14. Digoxin 0.125 mg p.o. daily. 15. Diazepam 5 mg p.o. b.i.d. 16. Celexa 10 mg daily. 17. Calamine solution 1 application 4 times a day p.r.n. 18. Symbicort 2 puffs inhalation b.i.d. 19. Lipitor 40 mg p.o. daily. 20. Eliquis 5 mg p.o. b.i.d. 21. Ventolin nebulizer as needed. 22. Tylenol tablets as needed. 23. Mirapex 0.5 mg p.o. b.i.d. 24. Metoprolol 12.5 p.o. daily. Please note: 1. The patient's heart rate is on the lower side when she is sleeping in the setting of her sleep apnea. The patient's metoprolol has been reduced to 12.5 mg in the hospital from 25 mg that she had been taking at bedside. 2. As the patient's potassium has been stable in the hospital without needing K supplementation and the patient is not on any diuretic, the patient's potassium that she was taking as an outpatient to be held. 3. Recommend checking BMP in 1 week. 4. The patient to follow up with her PCP in a week. CONDITION: Stable. DISPOSITION: [facility]/Rehab. TIME SPENT: Total time spent on discharge is equal to 50 minutes. [id number]/CPS #: [id number] MTDD
== END 2019-09-25 14:54 | DRG 189 ==
LOC: ED 18:31 → MEDTELE 23:08 → OBSVTOIN 09-19 14:22 → ICU 09-19 14:22 → MEDTELE 09-20 15:29 → SSU 09-24 14:27
PROVIDERS: ADMIT Internal Medicine; ATTEND Internal Medicine
PROC: 5A09357 Assistance with Respiratory Ventilation, Less than 24 Consecutive Hours, Continuous Positive Airway Pressure (ICD-10-PCS; principal; 2019-09-19)
DX: J96.21 Acute and chronic respiratory failure with hypoxia (principal); G92 Toxic encephalopathy; I50.32 Chronic diastolic (congestive) heart failure; E87.2 Acidosis; N17.9 Acute kidney failure, unspecified; J96.22 Acute and chronic respiratory failure with hypercapnia; J44.9 Chronic obstructive pulmonary disease, unspecified; T40.605A Adverse effect of unspecified narcotics, initial encounter; I48.0 Paroxysmal atrial fibrillation; I25.10 Atherosclerotic heart disease of native coronary artery without angina pectoris; I11.0 Hypertensive heart disease with heart failure; F41.8 Other specified anxiety disorders; G25.81 Restless legs syndrome; E03.9 Hypothyroidism, unspecified; M25.572 Pain in left ankle and joints of left foot; G40.909 Epilepsy, unspecified, not intractable, without status epilepticus; G89.29 Other chronic pain; E11.51 Type 2 diabetes mellitus with diabetic peripheral angiopathy without gangrene; K21.9 Gastro-esophageal reflux disease without esophagitis; M10.9 Gout, unspecified; M54.5 Low back pain; E78.00 Pure hypercholesterolemia, unspecified; M19.90 Unspecified osteoarthritis, unspecified site; F17.210 Nicotine dependence, cigarettes, uncomplicated; H91.90 Unspecified hearing loss, unspecified ear; M81.0 Age-related osteoporosis without current pathological fracture; E78.5 Hyperlipidemia, unspecified; E86.1 Hypovolemia; G47.33 Obstructive sleep apnea (adult) (pediatric); Y92.239 Unspecified place in hospital as the place of occurrence of the external cause; Z99.81 Dependence on supplemental oxygen; I25.2 Old myocardial infarction; Z95.2 Presence of prosthetic heart valve; Z86.73 Personal history of transient ischemic attack (TIA), and cerebral infarction without residual deficits; Z91.19 Patient's noncompliance with other medical treatment and regimen; Z79.84 Long term (current) use of oral hypoglycemic drugs; Z79.51 Long term (current) use of inhaled steroids; Z79.01 Long term (current) use of anticoagulants; Z88.6 Allergy status to analgesic agent; Z88.8 Allergy status to other drugs, medicaments and biological substances; Z88.1 Allergy status to other antibiotic agents; Z88.2 Allergy status to sulfonamides; Z88.0 Allergy status to penicillin; Z91.81 History of falling; Z88.5 Allergy status to narcotic agent; Z87.01 Personal history of pneumonia (recurrent); Z85.42 Personal history of malignant neoplasm of other parts of uterus; Z92.3 Personal history of irradiation; Z90.710 Acquired absence of both cervix and uterus; Z90.49 Acquired absence of other specified parts of digestive tract; Z86.14 Personal history of Methicillin resistant Staphylococcus aureus infection
CPT/HCPCS: 36415; 36600; 70450; 71046; 80048; 80053; 80162; 82140; 82607; 82803; 83605; 83880; 84484; 85025; 85610; 85730; 86140; 93005; 94640; 94660; 99284; A9270-GY; J2310; J3535

== ENCOUNTER 2020-01-05 22:11 | Inpatient (IN) ==
[2020-01-05] MEDS ORDERED: Albuterol HFA INHALER 8 gm MDI INH ONE ×2 (22:20→22:23)
[2020-01-05] MEDS ORDERED: Vancomycin 1,000 MG in NS 0.9% 250 ml 250 ML IV ONE (22:28)
[2020-01-05] MEDS ORDERED: Levofloxacin 500 MG IVPREMIX 500 MG/100 ML BAG IV ONE (22:29)
[2020-01-05] MEDS ORDERED: fentaNYL 100 mcg/2 ml 50 MCG/ML VIAL IV SLOW PU ONE ×3 (22:30→23:22)
[2020-01-05 23:07] LABS: ABS Basophils 0.1 10^3/ul (0-0.2); ABS Eosinophils 0.1 10^3/ul (0-0.6); ABS Lymphocytes 1.9 10^3/ul (1.0-4.8); ABS Monocytes 0.4 10^3/ul (0-0.8); Eosinophil % 1.2 %; Hematocrit 35 % (35-47); Hemoglobin 11.6 g/dL (12.0-16.0); Lymphocyte % 33.5 %; Mean Corpuscular HGB Conc 33 g/dL (31-36); Mean Corpuscular Hemoglobin 31 pg (27-31); Mean Corpuscular Volume 91 fL (80-97); Mean Platelet Volume 8.4 fL (7.4-10.4); Nucleated Red Blood Cells % 0.1; Platelet Count 223 10^3/uL (150-450); Red Blood Count 3.82 10^6 /uL (3.70-4.87); Red Cell Distribution Width 15 % (10-15); White Blood Count 5.7 10^3/uL (3.5-10.8)
[2020-01-05 23:28] LABS: BUN/Creatinine Ratio 33.8 (8-20); EGFR African American 102.9 (>60); EGFR Non-African American 85.1 (>60); Magnesium 1.6 mg/dL (1.9-2.7)
[2020-01-05 23:32] LABS: Activated Partial Thrombo Time 23.8 seconds (26.0-38.0); INR 1.13 (0.82-1.09)
[2020-01-06] MEDS: Diazepam INJ CARPUJECT 5 MG/ML IV ONE ×2 (00:09→00:47)
[2020-01-06] MEDS ORDERED: Diazepam INJ CARPUJECT 5 MG/ML ONE (00:43)
[2020-01-06] MEDS ORDERED: Dexamethasone IV 4 MG/ML 5 ML VIAL (20 MG) IVPB ONE (01:59)
[2020-01-06] MEDS ORDERED: Ondansetron 4 mg VIAL 2 MG/ML 2 ml VIAL IV PRN (02:04)
[2020-01-06] MEDS ORDERED: Calamine LOTION BTL TOPICAL PRN (02:20)
[2020-01-06] MEDS ORDERED: Dextrose 50% Syringe 50 ml 25 GM/50 ML SYRINGE IV PUSH PRN (02:59)
[2020-01-06] MEDS ORDERED: Buprenorp/Nalox 8-2 MG SL TAB PO ONE (03:05)
[2020-01-06] MEDS ORDERED: Diazepam INJ CARPUJECT 5 MG/ML IV ONE (03:14)
[2020-01-06 04:55] LABS: Digoxin < 0.3 ng/ml (0.8-2.0)
[2020-01-06] MEDS: fentaNYL 100 mcg/2 ml 50 MCG/ML VIAL IV SLOW PU PRN ×2 (05:59→12:55)
[2020-01-06] MEDS ORDERED: Albuterol HFA INHALER 8 gm MDI INH PRN (06:26)
[2020-01-06] MEDS ORDERED: Magnesium Sulfate IV 3 GM in NS 0.9% 100 ml BAG 100 ML IVPB ONE (06:30)
[2020-01-06] MEDS ORDERED: Pregabalin 100 mg CAP (*) PO ONE (06:45)
[2020-01-06] MEDS: Nicotine PATCH 21 MG/24 HR PATCH TRANSDERM SCH (09:41)
[2020-01-06] MEDS: Clindamycin 600 MG/D5W BAG 600 MG/50 ML BAG IV SCH ×3 (09:43→22:20)
[2020-01-06] MEDS: Buprenorp/Nalox 8-2 MG SL TAB PO SCH ×3 (09:50→21:27)
[2020-01-06] MEDS: Pregabalin 100 mg CAP (*) PO SCH ×3 (09:51→21:26)
[2020-01-06] MEDS: Mometasone/Formoter 200/5 MDI INH SCH ×3 (09:51→19:14)
[2020-01-06] MEDS: SPIRIVA Respimat (tiotropium) 2.5 mcg/inh Inhaler INH SCH ×2 (09:51→11:56)
[2020-01-06] MEDS ORDERED: NS 0.9% 100 ml BAG 100 ML ONE (09:53)
[2020-01-07] MEDS: Clindamycin 600 MG/D5W BAG 600 MG/50 ML BAG IV SCH ×3 (05:41→21:27)
[2020-01-07 08:08] LABS: ABS Lymphocytes 1.8 10^3/ul (1.0-4.8); ABS Monocytes 0.4 10^3/ul (0-0.8); Eosinophil % 0.4 %; Hematocrit 33 % (35-47); Hemoglobin 11.3 g/dL (12.0-16.0); Lymphocyte % 37.1 %; Mean Corpuscular HGB Conc 35 g/dL (31-36); Mean Corpuscular Hemoglobin 32 pg (27-31); Mean Corpuscular Volume 91 fL (80-97); Mean Platelet Volume 8.4 fL (7.4-10.4); Platelet Count 226 10^3/uL (150-450); Red Blood Count 3.56 10^6 /uL (3.70-4.87); Red Cell Distribution Width 15 % (10-15); White Blood Count 4.7 10^3/uL (3.5-10.8)
[2020-01-07 08:35] LABS: Albumin 3.5 g/dL (3.2-5.2); Albumin/Globulin Ratio 1.4 (1-3); BUN/Creatinine Ratio 19.5 (8-20); Calcium 8.6 mg/dL (8.6-10.3); EGFR African American 89.2 (>60); EGFR Non-African American 73.7 (>60); Globulin 2.5 g/dL (2-4); Total Bilirubin 0.5 mg/dL (0.2-1.0)
[2020-01-07] MEDS: SPIRIVA Respimat (tiotropium) 2.5 mcg/inh Inhaler INH SCH (09:18)
[2020-01-07] MEDS: Mometasone/Formoter 200/5 MDI INH SCH (09:19)
[2020-01-07] MEDS: Nicotine PATCH 21 MG/24 HR PATCH TRANSDERM SCH (09:24)
[2020-01-07] MEDS: Pregabalin 100 mg CAP (*) PO SCH ×3 (09:27→21:28)
[2020-01-07] MEDS: Buprenorp/Nalox 8-2 MG SL TAB PO SCH ×3 (09:31→21:27)
[2020-01-08 04:59] LABS: Hematocrit 34 % (35-47); Hemoglobin 11.4 g/dL (12.0-16.0); Mean Corpuscular HGB Conc 33 g/dL (31-36); Mean Corpuscular Hemoglobin 30 pg (27-31); Mean Corpuscular Volume 91 fL (80-97); Mean Platelet Volume 7.4 fL (7.4-10.4); Platelet Count 248 10^3/uL (150-450); Red Blood Count 3.75 10^6 /uL (3.70-4.87); Red Cell Distribution Width 16 % (10-15); White Blood Count 4.5 10^3/uL (3.5-10.8)
[2020-01-08 05:17] LABS: BUN/Creatinine Ratio 24.7 (8-20); Calcium 8.4 mg/dL (8.6-10.3); EGFR African American 94.8 (>60); EGFR Non-African American 78.4 (>60); Potassium 4.5 mmol/L (3.5-5.0)
[2020-01-08] MEDS: Clindamycin 600 MG/D5W BAG 600 MG/50 ML BAG IV SCH ×2 (05:50→13:42)
[2020-01-08] MEDS: Mometasone/Formoter 200/5 MDI INH SCH ×3 (07:02→19:36)
[2020-01-08] MEDS: Pregabalin 100 mg CAP (*) PO SCH ×2 (08:37→13:39)
[2020-01-08] MEDS: Nicotine PATCH 21 MG/24 HR PATCH TRANSDERM SCH (08:39)
[2020-01-08] MEDS: Buprenorp/Nalox 8-2 MG SL TAB PO SCH ×3 (08:42→22:21)
[2020-01-08] MEDS: SPIRIVA Respimat (tiotropium) 2.5 mcg/inh Inhaler INH SCH (09:14)
[2020-01-08 11:05] LABS: Magnesium 1.8 mg/dL (1.9-2.7)
[2020-01-09] MEDS: SPIRIVA Respimat (tiotropium) 2.5 mcg/inh Inhaler INH SCH (07:54)
[2020-01-09] MEDS: Mometasone/Formoter 200/5 MDI INH SCH (07:55)
[2020-01-09] MEDS: Buprenorp/Nalox 8-2 MG SL TAB PO SCH ×2 (08:39→13:12)
[2020-01-09] MEDS: Nicotine PATCH 21 MG/24 HR PATCH TRANSDERM SCH (08:40)
[2020-01-09 13:32] VITALS: BP 145/57
== END 2020-01-09 14:00 | disposition home or self-care (01) | DRG 603 ==
LOC: ED 22:11 → MED 01-06 02:04
PROVIDERS: ADMIT Internal Medicine; ATTEND Internal Medicine